=== PATIENT | female | born 1950 | race Two or more races ===

== ENCOUNTER 2019-06-18 15:21 | Inpatient (IN) | payer MEDICARE, OTHER ==
[~2019-06-18] VITALS: Ht 160 cm; Wt 61.4 kg
--- NOTE | 2019-06-18 15:21 | NUR ---
ED Nurse Note: patient brought in ED from [facility] by [facility] due to abdominal pain. per EMS, U/S was done at the SNF which shows gallstones and liver problems. patient is alert awake ambulatory with assistance. patient placed on a hospital gown, on a hall monitor.
--- NOTE | 2019-06-18 15:27 | Emergency Room Report ---
History of Present Illness General Chief Complaint: Abdominal Pain Source: Patient, Medical Record, EMS Present Illness HPI [age]-year-old female history of schizophrenia history of hypertension history of diabetes presents with hypoxia, abdominal pain times a few days no aggravating alleviating factors she endorses crampy abdominal pain no diarrhea no known fevers or chills patient does endorse a cough no production patient presents from a residential facility for evaluation for her abdominal pain as well as her hypoxia Allergies: Coded Allergies: PENICILLINS (Verified Allergy, Unknown, 06/18/19) COVID-19 Screening Contact w/high risk pt: No Recent Travel to affected area: No Experienced COVID-19 symptoms?: Yes COVID-19 symptoms experienced: Cough Patient History Past Medical History: see triage record Reviewed Nursing Documentation: PMH: Agreed; PSxH: Agreed Nursing Documentation-PMH Past Medical History: No History, Except For Hx Diabetes: Yes - DM TYPE 2 History Of Psychiatric Problem: Yes - MAJOR DEPRESSIVE DISORDER, SCHIZO, SI Review of Systems All Other Systems: negative except mentioned in HPI Physical Exam Vital Signs Date Time Temp Pulse Resp B/P (MAP) Pulse Ox O2 Delivery O2 Flow Rate FiO2 06/18/19 15:17 98.6 114 18 146/68 (94) 95 Room Air Sp02 EP Interpretation: reviewed, abnormal - Hypoxia General Appearance: no apparent distress, alert Head: normocephalic, atraumatic Eyes: bilateral eye PERRL, bilateral eye EOMI ENT: uvula midline, moist mucus membranes Neck: supple, thyroid normal, supple/symm/no masses Respiratory: lungs clear, no respiratory distress, no retraction, no accessory muscle use Cardiovascular #1: normal peripheral pulses, no edema, no gallop, no murmur, tachycardia Gastrointestinal: non tender, soft, no guarding, no rebound Musculoskeletal: normal inspection Neurologic: alert, responsive Psychiatric: mood/affect normal Skin: no rash, warm/dry Procedures Critical Care Time Critical Care Time Given the critical condition in which the patient arrived, the patient was immediately assessed by myself and the nurse, and cardiac monitoring initiated due to the potential for rapid decompensation of the patient's clinical condition. During the course of the patient's stay, I spent a considerable amount of time at the bedside performing serial re-evaluations of the patient's hemodynamic and clinical status because of the recognized potential threat to life or limb in this condition. I then had a chance to review not only all of the available current laboratory and radiographic studies obtained today, but I also reviewed old records available to me at the time. Additionally, any ancillary information available including mobile security specialist records were reviewed. Sequential vital signs were obtained. Critical Care time of 33 minutes was performed exclusive of billable procedures. Medical Decision Making Diagnostic Impression: Primary Impression: Hypoxia Additional Impressions: Abdominal pain Qualified Codes: R10.9 - Unspecified abdominal pain Pneumonia Qualified Codes: J18.9 - Pneumonia, unspecified organism Dehydration HCC (hepatocellular carcinoma) ER Course [age]-year-old female presents with shortness of breath, abdominal pain, differential diagnosis includes diverticulitis, appendicitis, gallstones pneumonia We will admit patient for new onset HCC as well as dehydration patient given 1 L fluids antibiotics were prophylactically started for possible infection Cardia resolved with fluid resuscitation, patient's hypoxia resolved without acute intervention patient admitted to Dr. Acuña Laboratory Tests Test 06/18/19 15:35 White Blood Count 11.0 K/UL (4.8-10.8) H Red Blood Count 2.95 M/UL (4.20-5.40) L Hemoglobin 9.9 G/DL (12.0-16.0) L Hematocrit 29.2 % (37.0-47.0) L Mean Corpuscular Volume 99 FL (80-99) Mean Corpuscular Hemoglobin 33.5 PG (27.0-31.0) H Mean Corpuscular Hemoglobin Concent 33.9 G/DL (32.0-36.0) Red Cell Distribution Width 16.8 % (11.6-14.8) H Platelet Count 134 K/UL (150-450) L Mean Platelet Volume 7.1 FL (6.5-10.1) Neutrophils (%) (Auto) 78.0 % (45.0-75.0) H Lymphocytes (%) (Auto) 8.8 % (20.0-45.0) L Monocytes (%) (Auto) 9.9 % (1.0-10.0) Eosinophils (%) (Auto) 1.8 % (0.0-3.0) Basophils (%) (Auto) 1.5 % (0.0-2.0) Prothrombin Time 12.0 SEC (9.30-11.50) H Prothrombin Time INR 1.1 (0.9-1.1) Activated Partial Thromboplast Time 27 SEC (23-33) Urine Color Brown Urine Appearance Clear Urine pH 6 (4.5-8.0) Urine Specific [place] 1.020 (1.005-1.035) Urine Protein 1+ (NEGATIVE) H Urine Glucose (UA) Negative (NEGATIVE) Urine Ketones 1+ (NEGATIVE) H Urine Blood Negative (NEGATIVE) Urine Nitrite Positive (NEGATIVE) H Urine Bilirubin Negative (NEGATIVE) Urine Urobilinogen 4 MG/DL (0.0-1.0) H Urine Leukocyte Esterase 1+ (NEGATIVE) H Urine RBC 2-4 /HPF (0 - 2) H Urine WBC 5-10 /HPF (0 - 2) H Urine Squamous Epithelial Cells Few /LPF (NONE/OCC) Urine Amorphous Sediment Few /LPF (NONE) H Urine Bacteria Few /HPF (NONE) Sodium Level 138 MMOL/L (136-145) Potassium Level 4.1 MMOL/L (3.5-5.1) Chloride Level 105 MMOL/L (98-107) Carbon Dioxide Level 25 MMOL/L (21-32) Anion Gap 8 mmol/L (5-15) Blood Urea Nitrogen 41 mg/dL (7-18) H Creatinine 0.9 MG/DL (0.55-1.30) Estimated Glomerular Filtration Rate > 60 mL/min (>60) Glucose Level 125 MG/DL (74-106) H Lactic Acid Level 1.90 mmol/L (0.4-2.0) Calcium Level 8.4 MG/DL (8.5-10.1) L Total Bilirubin 1.6 MG/DL (0.2-1.0) H Direct Bilirubin 0.7 MG/DL (0.0-0.3) H Aspartate Amino Transferase (AST) 47 U/L (15-37) H Alanine Aminotransferase (ALT) 18 U/L (12-78) Alkaline Phosphatase 139 U/L (46-116) H Troponin I 0.011 ng/mL (0.000-0.056) Pro-B-Type Natriuretic Peptide 106 pg/mL (0-125) Total Protein 7.3 G/DL (6.4-8.2) Albumin 2.7 G/DL (3.4-5.0) L Globulin 4.6 g/dL Albumin/Globulin Ratio 0.6 (1.0-2.7) L Lipase 168 U/L (73-393) EKG Diagnostic Results EKG Time: 15:36 EP Interpretation: Sinus tachycardia, rate 104, QTc 460, no acute ST elevations , normal axis Rhythm Strip Diag. Results Rhythm Strip Time: 15:44 EP Interpretation: yes Rate: 110 Rhythm: other - Sinus tachycardia Chest X-Ray Diagnostic Results Chest X-Ray Diagnostic Results : Chest X-Ray Ordered: Yes # of Views/Limited/Complete: 1 View Indication: Other - Cough EP Interpretation: Yes Interpretation: no consolidation, no effusion, no pneumothorax, no acute cardiopulmonary disease Impression: No acute disease Electronically Signed by: Rajendra Rouse MD CT/MRI/US Diagnostic Results CT/MRI/US Diagnostic Results : Impression Procedure: CT Chest Abdomen Pelvis w/Cont EXAM: CT Chest With Intravenous Contrast CLINICAL HISTORY: ABD PAIN TECHNIQUE: Axial computed tomography images of the chest with intravenous contrast. CTDI is 5.6 mGy and DLP is 154.6 mGy-cm. One or more of the following dose reduction techniques were used: automated exposure control, adjustment of the mA and/or kV according to patient size, use of iterative reconstruction technique. COMPARISON: No relevant prior studies available. FINDINGS: Atherosclerosis of the thoracic aorta. No dissection or other acute syndrome. No central pulmonary embolism. Trace pericardial and pleural effusions. Basilar atelectasis. Difficult to exclude coexisting infection. Multiple pulmonary nodules. Largest in the right upper lobe measures 1.4 cm. Metastatic disease is a possibility. Would also consider septic emboli. Clinical relation is advised. There is cardiophrenic lymphadenopathy. Largest node along the right heart margin measures 1.9 cm. No acute fracture. IMPRESSION: Trace pericardial and pleural effusions. Basilar atelectasis. Difficult to exclude coexisting infection. Pulmonary nodules, largest in the RUL. Consider metastatic disease or septic emboli. Cardiophrenic lymphadenopathy. EXAM: CT Abdomen and Pelvis With Intravenous Contrast CLINICAL HISTORY: ABD PAIN TECHNIQUE: Axial computed tomography images of the abdomen and pelvis with intravenous contrast. CTDI is 5.9 mGy and DLP is 338.8 mGy-cm. One or more of the following dose reduction techniques were used: automated exposure control, adjustment of the mA and/or kV according to patient size, use of iterative reconstruction technique. COMPARISON: No relevant prior studies available. FINDINGS: The liver is cirrhotic. There is evidence of portal hypertension including splenomegaly and gastric varices. There is a mass in the left lobe, primarily in the lateral segments, but also extending medially. This measures 7.7 x 5 x 4.8 cm in greatest transverse, anteroposterior, and craniocaudal dimensions respectively. This is hypodense/hypoenhancing compared to relatively normal adjacent parenchyma in the portal venous phase. This could reflect early washout of a hepatocellular carcinoma, particularly given cirrhosis. A large metastasis is also possible. Cholelithiasis. 2.2 cm densely calcified stone in the dependent gallbladder. No biliary ductal dilation. Both kidneys demonstrate multiple hypodense lesions, which are too small to characterize. No hydronephrosis. There is no bowel obstruction or perforation. The appendix is not well seen. Leftward pelvic calcification may reflect a subserosal uterine fibroid. No abdominal aortic aneurysm. No acute fracture. IMPRESSION: 7.7 cm left lobe hepatic mass is concerning for hepatocellular carcinoma, particularly given cirrhosis. A large metastasis is also possible. Consider multiphase hepatic protocol MRI. Right renal hypodensities that are too small to characterize. Cholelithiasis. Dictated By: Rajendra Arshad MD Electronically Signed By: Rajendra Arshad MD Signed Date/Time 06/18/19 [id number] CC: Rajendra Rouse MD Last Vital Signs Date Time Temp Pulse Resp B/P (MAP) Pulse Ox O2 Delivery O2 Flow Rate FiO2 06/18/19 15:17 98.6 114 18 146/68 (94) 95 Room Air Disposition: ADMITTED INPATIENT Condition: Serious Rajendra Rouse MD Jun 18, 2019 15:26
[2019-06-18] MEDS ORDERED: BENZTROPINE MESY1 MG ORAL (15:29)
[2019-06-18] MEDS ORDERED: HALOPERIDOL1 MG ORAL (15:29)
[2019-06-18] MEDS ORDERED: BISACODYL5 MG ORAL (15:29)
[2019-06-18] MEDS ORDERED: MOM30 ML ORAL (15:29)
[2019-06-18] MEDS ORDERED: SENNA8.6 M2 PO (15:29)
[2019-06-18] MEDS ORDERED: ZANTAC150 MG ORAL (15:29)
[2019-06-18] MEDS ORDERED: CELEXA20 MG ORAL (15:29)
[2019-06-18] MEDS ORDERED: ACETAMINOPHEN120 MG RECTAL (15:29)
[2019-06-18] MEDS ORDERED: Omnipaque-300 100ml vial INJ PRN (15:30)
[2019-06-18] MEDS ORDERED: Acetaminophen 500mg (ES) tab ORAL ONE (15:30)
--- NOTE | 2019-06-18 15:35 | NUR ---
ED Nurse Note: iv access established. blood, initial lactic, blood cultures, flu swab, covid19 swab collected; sent down to lab.
[2019-06-18 15:57] LABS: APPEARANCE,URINE CLEAR; BASOPHILS % (AUTO) 1.5 % (0.0-2.0); BILIRUBIN, URINE NEGATIVE (NEGATIVE); COLOR,URINE BROWN; EOSINOPHILS % (AUTO) 1.8 % (0.0-3.0); GLUCOSE, URINE (UA) NEGATIVE (NEGATIVE); HEMATOCRIT 29.2 % (37.0-47.0); HEMOGLOBIN 9.9 G/DL (12.0-16.0); KETONES,URINE 1+ (NEGATIVE); LEUKOCYTE ESTERASE ,URINE 1+ (NEGATIVE); LYMPHOCYTES % (AUTO) 8.8 % (20.0-45.0); MEAN CORPUSCULAR VOLUME 99 FL (80-99); MONOCYTES % (AUTO) 9.9 % (1.0-10.0); NITRITE,URINE POSITIVE (NEGATIVE); PH,URINE 6 (4.5-8.0); PLATELET COUNT 134 K/UL (150-450); PROTEIN,URINE 1+ (NEGATIVE); RED BLOOD COUNT 2.95 M/UL (4.20-5.40); RED CELL DISTRIBUTION WIDTH 16.8 % (11.6-14.8); UROBILINOGEN,URINE 4 MG/DL (0.0-1.0)
--- NOTE | 2019-06-18 15:59 | NUR ---
ED Nurse Note: cxr done at bedside.
[2019-06-18 16:04] VITALS: BP 115/62
[2019-06-18 16:05] LABS: INR 1.1 (0.9-1.1)
[2019-06-18 16:10] LABS: ANION GAP 8 mmol/L (5-15); BLOOD UREA NITROGEN 41 mg/dL (7-18); CALCIUM 8.4 MG/DL (8.5-10.1); CARBON DIOXIDE 25 MMOL/L (21-32); CHLORIDE 105 MMOL/L (98-107); CREATININE 0.9 MG/DL (0.55-1.30); POTASSIUM 4.1 MMOL/L (3.5-5.1); SODIUM 138 MMOL/L (136-145)
--- NOTE | 2019-06-18 16:14 | Diagnostic Imaging Report ---
Indication: Cough Technique: XRAY Chest 1v Comparison: None Findings: Lung volumes are low. There is a questionable opacity at the left base. No pleural effusion or pneumothorax. Heart size and mediastinal contours within normal limits for the lung was. Atherosclerotic calcifications noted in the aorta. Degenerative changes noted in the spine. No acute osseous abnormality. IMPRESSION: Limited exam with low lung volumes. Questionable opacity at the left lung base. Recommend further evaluation with PA and lateral views as clinically indicated.
[2019-06-18 16:23] LABS: ALANINE AMINOTRANSFERASE 18 U/L (12-78); ALBUMIN 2.7 G/DL (3.4-5.0); ALBUMIN/GLOBULIN RATIO 0.6 (1.0-2.7); ALKALINE PHOSPHATASE 139 U/L (46-116); ASPARTATE AMINO TRANSFERASE 47 U/L (15-37); BILIRUBIN,TOTAL 1.6 MG/DL (0.2-1.0)
[2019-06-18 16:36] LABS: BILIRUBIN,DIRECT 0.7 MG/DL (0.0-0.3)
--- NOTE | 2019-06-18 17:36 | NUR ---
ED Nurse Note: patient taken to CT scan
--- NOTE | 2019-06-18 18:16 | Diagnostic Imaging Report ---
EXAM: CT Chest With Intravenous Contrast CLINICAL HISTORY: ABD PAIN TECHNIQUE: Axial computed tomography images of the chest with intravenous contrast. CTDI is 5.6 mGy and DLP is 154.6 mGy-cm. One or more of the following dose reduction techniques were used: automated exposure control, adjustment of the mA and/or kV according to patient size, use of iterative reconstruction technique. COMPARISON: No relevant prior studies available. FINDINGS: Atherosclerosis of the thoracic aorta. No dissection or other acute syndrome. No central pulmonary embolism. Trace pericardial and pleural effusions. Basilar atelectasis. Difficult to exclude coexisting infection. Multiple pulmonary nodules. Largest in the right upper lobe measures 1.4 cm. Metastatic disease is a possibility. Would also consider septic emboli. Clinical relation is advised. There is cardiophrenic lymphadenopathy. Largest node along the right heart margin measures 1.9 cm. No acute fracture. IMPRESSION: Trace pericardial and pleural effusions. Basilar atelectasis. Difficult to exclude coexisting infection. Pulmonary nodules, largest in the RUL. Consider metastatic disease or septic emboli. Cardiophrenic lymphadenopathy. EXAM: CT Abdomen and Pelvis With Intravenous Contrast CLINICAL HISTORY: ABD PAIN TECHNIQUE: Axial computed tomography images of the abdomen and pelvis with intravenous contrast. CTDI is 5.9 mGy and DLP is 338.8 mGy-cm. One or more of the following dose reduction techniques were used: automated exposure control, adjustment of the mA and/or kV according to patient size, use of iterative reconstruction technique. COMPARISON: No relevant prior studies available. FINDINGS: The liver is cirrhotic. There is evidence of portal hypertension including splenomegaly and gastric varices. There is a mass in the left lobe, primarily in the lateral segments, but also extending medially. This measures 7.7 x 5 x 4.8 cm in greatest transverse, anteroposterior, and craniocaudal dimensions respectively. This is hypodense/hypoenhancing compared to relatively normal adjacent parenchyma in the portal venous phase. This could reflect early washout of a hepatocellular carcinoma, particularly given cirrhosis. A large metastasis is also possible. Cholelithiasis. 2.2 cm densely calcified stone in the dependent gallbladder. No biliary ductal dilation. Both kidneys demonstrate multiple hypodense lesions, which are too small to characterize. No hydronephrosis. There is no bowel obstruction or perforation. The appendix is not well seen. Leftward pelvic calcification may reflect a subserosal uterine fibroid. No abdominal aortic aneurysm. No acute fracture. IMPRESSION: 7.7 cm left lobe hepatic mass is concerning for hepatocellular carcinoma, particularly given cirrhosis. A large metastasis is also possible. Consider multiphase hepatic protocol MRI. Right renal hypodensities that are too small to characterize. Cholelithiasis.
--- NOTE | 2019-06-18 18:55 | NUR ---
NURSE NOTES: Received report from AROLDO Zuniga from ED. Will endorse to next shift.
--- NOTE | 2019-06-18 18:57 | NUR ---
ED Nurse Note: report given to Caren RN, endorsed all plan of care to Caren KENDRICK
[2019-06-18 19:10] VITALS: BP 127/64
--- NOTE | 2019-06-18 19:10 | NUR ---
HAND-OFF: Report given to Ronal KENDRICK, endorsed all plan of care to [place] RN
--- NOTE | 2019-06-18 19:10 | NUR ---
TRANSFER TO FLOOR: Patient transferred to [facility] via gurney accompanied by 1rn 1tech via alternate route with proper ppe equipment in stable condition as ordered, per dr. Acuña. Security and casting house worker notified of isolation transfer. Report given to Caren KENDRICK and endorsed that the patient is an isolation. Belongings sent with be
[2019-06-18 19:29] VITALS: BP 131/63
--- NOTE | 2019-06-18 19:40 | NUR ---
NURSE NOTES: Pt transferred to the unit via [place] [facility], belongings checked. Droplet precautions initiated. Skin intact. A/O x2-3. Pt able to answer questions but repeating same questions. SR on ekg monitor. On room air with no SOB with dry cough. Abd large and distended noted. Purewick applied. IV on L AC 18G. VS stable. Bed in the lowest position. Side rails up x3. Will continue to monitor.
--- NOTE | 2019-06-18 20:00 | NUR ---
NURSE NOTES: Admitting orders from received and will be carried out.
[2019-06-18] MEDS ORDERED: Guaifenesin/DM 10ml syrup ORAL PRN (20:15)
[2019-06-18] MEDS ORDERED: Acetaminophen 500mg (ES) tab ORAL PRN (20:15)
[2019-06-18] MEDS: LORazepam 1mg tab ORAL PRN (23:47)
[2019-06-19] VITALS: BP 123/65
--- NOTE | 2019-06-19 | NUR ---
NURSE NOTES: Pt seems agitated and depressive. After RN leaves the room, pt starts to yell and scream. notified, new order received and carried out.
[2019-06-19 04:00] VITALS: BP 116/64
[2019-06-19 05:10] LABS: HEMATOCRIT 26.2 % (37.0-47.0); HEMOGLOBIN 9.3 G/DL (12.0-16.0); MEAN CORPUSCULAR VOLUME 95 FL (80-99); PLATELET COUNT 97 K/UL (150-450); RED BLOOD COUNT 2.75 M/UL (4.20-5.40); RED CELL DISTRIBUTION WIDTH 16.3 % (11.6-14.8); WHITE BLOOD COUNT 7.5 K/UL (4.8-10.8)
[2019-06-19 05:41] LABS: ALANINE AMINOTRANSFERASE 13 U/L (12-78); ALBUMIN 2.2 G/DL (3.4-5.0); ALBUMIN/GLOBULIN RATIO 0.5 (1.0-2.7); ALKALINE PHOSPHATASE 120 U/L (46-116); ANION GAP 8 mmol/L (5-15); ASPARTATE AMINO TRANSFERASE 40 U/L (15-37); BILIRUBIN,TOTAL 1.4 MG/DL (0.2-1.0); BLOOD UREA NITROGEN 33 mg/dL (7-18); CALCIUM 7.8 MG/DL (8.5-10.1); CARBON DIOXIDE 24 MMOL/L (21-32); CHLORIDE 106 MMOL/L (98-107); CREATININE 0.7 MG/DL (0.55-1.30); POTASSIUM 4.2 MMOL/L (3.5-5.1); SODIUM 138 MMOL/L (136-145)
[2019-06-19 05:49] LABS: BILIRUBIN,DIRECT 0.6 MG/DL (0.0-0.3)
--- NOTE | 2019-06-19 07:23 | NUR ---
NURSE NOTES: Received report from AROLDO Coyne. Patient is resting in bed, in stable condition. No s/sx of SOB, breathing is even and unlabored, room air. Isolation contact and droplet for rule out for COVID-19. Denies any presence of pain or discomfort at this time. Bed is in lowest position, brakes engaged. Call light kept within easy reach. Will continue to monitor patient.
--- NOTE | 2019-06-19 07:26 | NUR ---
HAND-OFF: Report given to AROLDO Garcia. No acute distress noted at this time.
[2019-06-19 08:00] VITALS: BP 140/69
--- NOTE | 2019-06-19 09:26 | NUR ---
NURSE NOTES: Dr. Acuña at nurse station. ordered Margarita Kemp for ID consult, Dr. Langford for GI consult. Keep pt NPO wait for Dr. Langford to place GI orders. Accuchek ACHS no coverage while NPO. When pt placed on Diet per Dr. Langford begin pt on sensitive insulin sliding scale. D50W IVP PRN for hypoglycemia. Orders entered, noted, and carried out. Will continue to monitor patient. Charge nurse aware.
--- NOTE | 2019-06-19 09:30 | NUR ---
NURSE NOTES: Dr. Martines at nurse station. Made aware patient is on room air with SpO2 98%. MD aware of CT results, no new orders at this time. Made MD aware of patient's coughing, MD acknowledged and states will place codeine cough syrup himself. Noted.
--- NOTE | 2019-06-19 09:39 | NUR ---
NURSE NOTES: Dr. Langford at nurse station, ordered to discontinue NPO and place patient on diabetic 1800 diet. Orders entered, noted, and carried out. Will continue to monitor patient.
[2019-06-19] MEDS: LORazepam 1mg tab ORAL PRN ×2 (10:11→16:25)
[2019-06-19] MEDS: NovoLOG Insulin Flexpen SUBQ SCH ×3 (11:30→20:18)
[2019-06-19 12:00] VITALS: BP 118/64
[2019-06-19] MEDS ORDERED: Levofloxacin 750mg tab ORAL SCH (12:00)
--- NOTE | 2019-06-19 12:14 | Consultation ---
DATE OF CONSULTATION: 06/19/2019 PULMONARY CONSULTATION CONSULTING PHYSICIAN: Trip Martines M.D. HISTORY OF PRESENT ILLNESS: This is a 69-year-old female, who is a care home resident. She has a history of schizophrenia. She was brought to the hospital with hypoxia, abdominal pain, and significant cough. The patient denies shortness of breath. She is a very poor historian. The patient was seen and worked up and underwent imaging studies including chest x-ray and chest CT as well as CT of the abdomen. The significant findings are notable for multiple pulmonary nodules, the largest being in the right lower lobe. There are no infiltrates or ground-glass opacities noted. She was also found to have a large hepatocellular mass, suspicious for carcinoma. PAST MEDICAL HISTORY: Notable for schizophrenia, depression, diabetes mellitus. SOCIAL HISTORY: prison resident. ALLERGIES: To penicillin. HOME MEDICATIONS: Reviewed and reconciled in chart and include insulin sliding scale, Ativan, Remeron, Levaquin, Flagyl, and . PHYSICAL EXAMINATION: GENERAL: Reveals a 69-year-old female. VITAL SIGNS: Blood pressure 140/60, heart rate 104, respirations are 20, she is afebrile, and O2 98% on room air. HEENT: Unremarkable. LUNGS: Shows decreased breath sounds bilaterally with normal heart sounds. ABDOMEN: Soft. EXTREMITIES: There is no edema. NEUROLOGIC: Nonfocal. LABORATORY AND DIAGNOSTIC DATA: Lab testing shows white count 11,000, now 7.5, hemoglobin 9.3, platelet count is 97,000. Chemistry notable for total bilirubin of 1.4, AST 40, ALT 13, alkaline phosphatase 120. Coags are negative. Urinalysis shows few wbc. discussed above are consistent with multiple pulmonary nodules, the largest being in the right lower lobe. The patient has a hepatocellular mass noted. IMPRESSION: 1. Probable metastatic pulmonary disease. 2. Low suspicion for COVID-19. 3. Hepatocellular mass. 4. Schizophrenia. 5. Diabetes mellitus. DISCUSSION: Admit to the hospital. We will place in isolation given risk factors for COVID-19 being care home resident, cough, hypoxia. Discussed with Gastroenterology. Await results of laboratory testing. She would benefit from Hematology consultation. We will follow carefully. Trip Martines M.D. DR: PALOMO JOB#: [id number] CC:
--- NOTE | 2019-06-19 12:30 | NUR ---
NURSE NOTES: Patient refused lunch, however stated would just like to drink cranberry juice at this time. Patient drank 2 eight ounce cups of cranberry juice. No coughing noted when swallowing. Will continue to monitor patient.
[2019-06-19] MEDS: guaiFENesin w/Codeine 5ml Liq ud ORAL PRN (13:03)
--- NOTE | 2019-06-19 13:26 | Consultation ---
History of Present Illness General Date patient seen: Jun 19, 2019 Reason for Hospitalization: Abdominal Pain Present Illness HPI 69-year-old female history of schizophrenia history of hypertension history of diabetes presents with hypoxia, abdominal pain times a few days no aggravating alleviating factors she endorses crampy abdominal pain no diarrhea no known fevers or chills patient does endorse a cough no production [facility] for evaluation for her abdominal pain as well as her hypoxia. surgery called to evaluate. elevated lfts'. leukocytosis. imaging reviewed. Allergies: Coded Allergies: PENICILLINS (Verified Allergy, Unknown, 06/18/19) COVID-19 Screening Contact w/high risk pt: No Recent Travel to affected area: No Experienced COVID-19 symptoms?: Yes COVID-19 symptoms experienced: Cough Medication History Scheduled Benztropine Mesylate* (Benztropine Mesylate*), 1 MG ORAL HS, (Reported) Bisacodyl* (Dulcolax*), 10 AMP ORAL NEEDED, (Reported) Citalopram Hydrobromide* (Celexa*), 20 MG ORAL DAILY, (Reported) Haloperidol* (Haldol*), 5 MG ORAL HS, (Reported) Magnesium Hydroxide (Milk of Magnesia), 30 ML ORAL NEEDED, (Reported) Ranitidine Hcl* (Zantac*), 150 MG ORAL DAILY, (Reported) Scheduled PRN Acetaminophen* (Tylenol*), 500 MG RECTAL Q4H PRN for Mild Pain/Temp > 100.5, ( Reported) Miscellaneous Medications Sennosides (Senna), 8.6 MG PO, (Reported) Patient History Limited by: medical condition History Provided By: Medical Record, PMD Healthcare decision maker Resuscitation status Full Code Advanced Directive on File Past Medical/Surgical History Past Medical/Surgical History: (1) Dehydration (2) Hypoxia (3) Abdominal pain (4) Pneumonia (5) HCC (hepatocellular carcinoma) Review of Systems Review of Symptoms General ROS: no weight loss or fever Psychological ROS: no depression or mood changes, no memory loss Ophthalmic ROS: no visual changes or eye irritation ENT ROS: no nasal congestion, hearing loss, dizziness Allergy and Immunology ROS: no allergic symptoms or urticaria Hematological and Lymphatic ROS: no swollen glands, unusual bleeding or bruising Endocrine ROS: no polyuria, polydipsia, weight changes, temperature intolerance Respiratory ROS: no cough, shortness of breath, or wheezing Cardiovascular ROS: no chest pain or dyspnea on exertion Gastrointestinal ROS: denies abdominal pain, bright red blood in stool. Musculoskeletal ROS: no myalgias or arthralgias Neurological ROS: no TIA or stroke symptoms Dermatological ROS: no new or changing skin lesions, rashes or pruritis Physical Exam Physical Exam General appearance: alert, cooperative, no distress, appears stated age Head: Normocephalic, without obvious abnormality, atraumatic Eyes: conjunctivae/corneas clear. PERRL, EOM's intact. Fundi benign Throat: Lips, mucosa, and tongue normal. Teeth and gums normal Neck: supple, symmetrical, trachea midline, no adenopathy, thyroid: not enlarged, symmetric, no tenderness/mass/nodules, no carotid bruit and no JVD Lungs: clear to auscultation bilaterally Heart: regular rate and rhythm, S1, S2 normal, no murmur, click, rub or gallop Abdomen: soft, non-tender. Bowel sounds normal. No masses, no organomegaly Extremities: extremities normal, atraumatic, no cyanosis or edema Pulses: 2+ and symmetric Skin: Skin color, texture, turgor normal. No rashes or lesions Neurologic: Grossly normal Last 24 Hour Vital Signs Date Time Temp Pulse Resp B/P (MAP) Pulse Ox O2 Delivery O2 Flow Rate FiO2 06/19/19 12:00 98.1 115 20 118/64 (82) 99 06/19/19 11:34 118 06/19/19 08:00 Room Air 06/19/19 08:00 97.9 107 20 140/69 (92) 98 06/19/19 07:47 101 06/19/19 04:00 Room Air 06/19/19 04:00 100 06/19/19 04:00 96.7 100 20 116/64 (81) 100 06/19/19 00:00 108 06/19/19 00:00 Room Air 06/19/19 00:00 97.0 98 20 123/65 (84) 100 06/18/19 20:30 Room Air 06/18/19 20:00 90 06/18/19 19:29 96.8 100 16 131/63 (85) 100 06/18/19 19:10 98.9 97 18 127/64 98 Room Air 06/18/19 19:10 98.9 97 18 127/64 98 Room Air 06/18/19 18:54 98.6 06/18/19 16:04 98.6 100 18 115/62 96 Room Air 06/18/19 15:58 114 18 Room Air 06/18/19 15:17 98.6 114 18 146/68 (94) 95 Room Air Laboratory Tests Test 06/18/19 15:35 06/19/19 05:00 White Blood Count 11.0 K/UL (4.8-10.8) H 7.5 K/UL (4.8-10.8) Red Blood Count 2.95 M/UL (4.20-5.40) L 2.75 M/UL (4.20-5.40) L Hemoglobin 9.9 G/DL (12.0-16.0) L 9.3 G/DL (12.0-16.0) L Hematocrit 29.2 % (37.0-47.0) L 26.2 % (37.0-47.0) L Mean Corpuscular Volume 99 FL (80-99) 95 FL (80-99) Mean Corpuscular Hemoglobin 33.5 PG (27.0-31.0) H 34.0 PG (27.0-31.0) H Mean Corpuscular Hemoglobin Concent 33.9 G/DL (32.0-36.0) 35.6 G/DL (32.0-36.0) Red Cell Distribution Width 16.8 % (11.6-14.8) H 16.3 % (11.6-14.8) H Platelet Count 134 K/UL (150-450) L 97 K/UL (150-450) L Mean Platelet Volume 7.1 FL (6.5-10.1) 6.4 FL (6.5-10.1) L Neutrophils (%) (Auto) 78.0 % (45.0-75.0) H % (45.0-75.0) Lymphocytes (%) (Auto) 8.8 % (20.0-45.0) L % (20.0-45.0) Monocytes (%) (Auto) 9.9 % (1.0-10.0) % (1.0-10.0) Eosinophils (%) (Auto) 1.8 % (0.0-3.0) % (0.0-3.0) Basophils (%) (Auto) 1.5 % (0.0-2.0) % (0.0-2.0) Prothrombin Time 12.0 SEC (9.30-11.50) H Prothromb Time International Ratio 1.1 (0.9-1.1) Activated Partial Thromboplast Time 27 SEC (23-33) Urine Color Brown Urine Appearance Clear Urine pH 6 (4.5-8.0) Urine Specific [place] 1.020 (1.005-1.035) Urine Protein 1+ (NEGATIVE) H Urine Glucose (UA) Negative (NEGATIVE) Urine Ketones 1+ (NEGATIVE) H Urine Blood Negative (NEGATIVE) Urine Nitrite Positive (NEGATIVE) H Urine Bilirubin Negative (NEGATIVE) Urine Urobilinogen 4 MG/DL (0.0-1.0) H Urine Leukocyte Esterase 1+ (NEGATIVE) H Urine RBC 2-4 /HPF (0 - 2) H Urine WBC 5-10 /HPF (0 - 2) H Urine Squamous Epithelial Cells Few /LPF (NONE/OCC) Urine Amorphous Sediment Few /LPF (NONE) H Urine Bacteria Few /HPF (NONE) Sodium Level 138 MMOL/L (136-145) 138 MMOL/L (136-145) Potassium Level 4.1 MMOL/L (3.5-5.1) 4.2 MMOL/L (3.5-5.1) Chloride Level 105 MMOL/L (98-107) 106 MMOL/L (98-107) Carbon Dioxide Level 25 MMOL/L (21-32) 24 MMOL/L (21-32) Anion Gap 8 mmol/L (5-15) 8 mmol/L (5-15) Blood Urea Nitrogen 41 mg/dL (7-18) H 33 mg/dL (7-18) H Creatinine 0.9 MG/DL (0.55-1.30) 0.7 MG/DL (0.55-1.30) Estimat Glomerular Filtration Rate > 60 mL/min (>60) > 60 mL/min (>60) Glucose Level 125 MG/DL (74-106) H 88 MG/DL (74-106) Lactic Acid Level 1.90 mmol/L (0.4-2.0) Calcium Level 8.4 MG/DL (8.5-10.1) L 7.8 MG/DL (8.5-10.1) L Total Bilirubin 1.6 MG/DL (0.2-1.0) H 1.4 MG/DL (0.2-1.0) H Direct Bilirubin 0.7 MG/DL (0.0-0.3) H 0.6 MG/DL (0.0-0.3) H Aspartate Amino Transf (AST/SGOT) 47 U/L (15-37) H 40 U/L (15-37) H Alanine Aminotransferase (ALT/SGPT) 18 U/L (12-78) 13 U/L (12-78) Alkaline Phosphatase 139 U/L (46-116) H 120 U/L (46-116) H Troponin I 0.011 ng/mL (0.000-0.056) Pro-B-Type Natriuretic Peptide 106 pg/mL (0-125) Total Protein 7.3 G/DL (6.4-8.2) 6.4 G/DL (6.4-8.2) Albumin 2.7 G/DL (3.4-5.0) L 2.2 G/DL (3.4-5.0) L Globulin 4.6 g/dL 4.2 g/dL Albumin/Globulin Ratio 0.6 (1.0-2.7) L 0.5 (1.0-2.7) L Lipase 168 U/L (73-393) Differential Total Cells Counted 100 Neutrophils % (Manual) 74 % (45-75) Lymphocytes % (Manual) 14 % (20-45) L Monocytes % (Manual) 5 % (1-10) Eosinophils % (Manual) 7 % (0-3) H Basophils % (Manual) 0 % (0-2) Band Neutrophils 0 % (0-8) Platelet Estimate Decreased L Platelet Morphology Normal Hypochromasia 2+ Anisocytosis 1+ Spherocytes 1+ Microbiology Date/Time Source Procedure Growth Status 06/18/19 19:00 Rectum Received Height (Feet): 5 Height (Inches): 4.00 Weight (Pounds): 136 Medications Current Medications Medications (Trade) Dose Ordered Sig/[place] Route PRN Reason Start Time Stop Time Status Last Admin Dose Admin Acetaminophen (Tylenol) 500 mg Q6H PRN ORAL Mild Pain/Temp > 100.5 06/18/19 20:15 07/18/19 20:14 06/18/19 21:51 Dextrose (Dextrose 50%) 25 ml Q30M PRN IV Hypoglycemia 06/19/19 09:45 09/17/19 09:44 Dextrose (Dextrose 50%) 50 ml Q30M PRN IV Hypoglycemia 06/19/19 09:45 09/17/19 09:44 Guaifenesin/ Codeine Phosphate (Robitussin with codeine) 5 ml Q6H PRN ORAL For Cough 06/19/19 10:00 07/19/19 09:59 06/19/19 13:03 Insulin Aspart (NovoLOG) BEFORE MEALS AND HS SUBQ 06/19/19 11:30 09/17/19 11:29 Iohexol (OMNIPAQUE-300 100ml) 100 ml NOW PRN INJ Radiology Procedure 06/18/19 15:30 06/20/19 15:27 Levofloxacin (Levaquin) 750 mg QHS ORAL 06/19/19 21:00 06/26/19 20:59 Lorazepam (Ativan) 1 mg Q6H PRN ORAL For Anxiety 06/18/19 23:30 06/25/19 23:29 06/19/19 10:11 Mirtazapine (Remeron) 15 mg BEDTIME ORAL 06/18/19 23:45 09/16/19 23:44 06/18/19 23:47 Assessment/Plan Problem List: (1) Abdominal pain Assessment & Plan: [age]-year-old female multiple medical comorbidities presented with abdominal discomfort noted to have abnormal LFTs leukocytosis. CT reviewed liver cirrhotic and there is a mass. Possibly carcinoma likely. HCC. Abdominal exam without peritonitis no acute surgical intervention indicated recommended at this time supportive treatment. Will follow with recommendations thank you The liver is cirrhotic. There is evidence of portal hypertension including splenomegaly and gastric varices. There is a mass in the left lobe, primarily in the lateral segments, but also extending medially. This measures 7.7 x 5 x 4.8 cm in greatest transverse, anteroposterior, and craniocaudal dimensions respectively. This is hypodense/hypoenhancing compared to relatively normal adjacent parenchyma in the portal venous phase. This could reflect early washout of a hepatocellular carcinoma, particularly given cirrhosis. A large metastasis is also possible. Cholelithiasis. 2.2 cm densely calcified stone in the dependent gallbladder. No biliary ductal dilation. Both kidneys demonstrate multiple hypodense lesions, which are too small to characterize. No hydronephrosis. There is no bowel obstruction or perforation. The appendix is not well seen. Leftward pelvic calcification may reflect a subserosal uterine fibroid. No abdominal aortic aneurysm. No acute fracture. IMPRESSION: 7.7 cm left lobe hepatic mass is concerning for hepatocellular carcinoma, particularly given cirrhosis. A large metastasis is also possible. Consider multiphase hepatic protocol MRI. Right renal hypodensities that are too small to characterize. Cholelithiasis. ICD Codes: R10.9 - Unspecified abdominal pain SNOMED: [id number] Qualifiers: Qualified Codes: R10.9 - Unspecified abdominal pain Bay Kearns Jun 19, 2019 13:26
--- NOTE | 2019-06-19 14:01 | NUR ---
NURSE NOTES: Per Dr. Acuña instructed this nurse to contact Dr. Margarita Kemp for isolation clarifications as that patient is being ruled out for COVID-19. Currently patient is on droplet and contact precautions per protocol. Left message with Dr. Margarita Kemp, awaiting call back. Will continue to monitor patient.
--- NOTE | 2019-06-19 14:44 | NUR ---
NURSE NOTES: Dr. Margarita Kemp called back nurse station and spoke with this nurse regarding patient's isolation precautions d/t COVID-19 rule out and patient's coughing. This nurse read back chest x-ray results. Dr. Margarita Kemp acknowledged and informed this nurse to keep patient on droplet and contact isolation while being ruled out for COVID-19.
--- NOTE | 2019-06-19 14:57 | NUR ---
NURSE NOTES: Patient noted with abdominal ultra sound ordered by Dr. Kearns. Followed up with ultra sound department, this nurse spoke with Sandra, and was informed ultra sound is unable to perform procedure at this time as that patient is being ruled out for COVID-19. Per Sandra, once COVID-19 is ruled out than ultra sound can be done. Contacted and left message with Dr. Kearns, awaiting reply. Will continue to monitor patient.
[2019-06-19 15:26] VITALS: BP 134/67
--- NOTE | 2019-06-19 15:49 | NUR ---
NURSE NOTES: Dr. Kearns returned reply regarding ultra sound of abdomen unable to be done at this time due to patient being ruled out for COVID-19. Dr. Kearns acknowledged and gave no new orders at this time. Will continue to monitor patient.
--- NOTE | 2019-06-19 16:41 | NUR ---
NURSE NOTES: Per son, Anmol Lopez listed next of kin, okay to give medical information to patient's sister, Taylor Ovalle, . Per son, if medical consents needed, call him first; phone number for son Anmol Lopez on patient's facesheet. Noted.
--- NOTE | 2019-06-19 17:34 | General Progress Note ---
Assessment/Plan Assessment/Plan: Assessment - Cirrhosis, ? etiology - Large liver mass, suspect CA - r/o COVID Recommendations - Isolation - check COVID status - Check tumor markers - Cirrhsis w/u ([facility], [facility], [facility], [facility]) - No plans for liver biopsy until markers reviewed Subjective Allergies: Coded Allergies: PENICILLINS (Verified Allergy, Unknown, 06/18/19) Objective Last 24 Hour Vital Signs Date Time Temp Pulse Resp B/P (MAP) Pulse Ox O2 Delivery O2 Flow Rate FiO2 06/19/19 16:00 Room Air 06/19/19 15:48 110 06/19/19 15:26 97.7 117 20 134/67 (89) 98 06/19/19 15:16 118 06/19/19 12:00 98.1 115 20 118/64 (82) 99 06/19/19 12:00 Room Air 06/19/19 11:34 118 06/19/19 08:00 Room Air 06/19/19 08:00 97.9 107 20 140/69 (92) 98 06/19/19 07:47 101 06/19/19 04:00 Room Air 06/19/19 04:00 100 06/19/19 04:00 96.7 100 20 116/64 (81) 100 06/19/19 00:00 108 06/19/19 00:00 Room Air 06/19/19 00:00 97.0 98 20 123/65 (84) 100 06/18/19 20:30 Room Air 06/18/19 20:00 90 06/18/19 19:29 96.8 100 16 131/63 (85) 100 06/18/19 19:10 98.9 97 18 127/64 98 Room Air 06/18/19 19:10 98.9 97 18 127/64 98 Room Air 06/18/19 18:54 98.6 Laboratory Tests 06/19/19 05:00: White Blood Count 7.5, Red Blood Count 2.75L, Hemoglobin 9.3L, Hematocrit 26.2L , Mean Corpuscular Volume 95, Mean Corpuscular Hemoglobin 34.0H, Mean Corpuscular Hemoglobin Concent 35.6, Red Cell Distribution Width 16.3H, Platelet Count 97L, Mean Platelet Volume 6.4L, Neutrophils (%) (Auto) , Lymphocytes (%) (Auto) , Monocytes (%) (Auto) , Eosinophils (%) (Auto) , Basophils (%) (Auto) , Differential Total Cells Counted 100, Neutrophils % ( Manual) 74, Lymphocytes % (Manual) 14L, Monocytes % (Manual) 5, Eosinophils % ( Manual) 7H, Basophils % (Manual) 0, Band Neutrophils 0, Platelet Estimate DecreasedL, Platelet Morphology Normal, Hypochromasia 2+, Anisocytosis 1+, Spherocytes 1+, Sodium Level 138, Potassium Level 4.2, Chloride Level 106, Carbon Dioxide Level 24, Anion Gap 8, Blood Urea Nitrogen 33H, Creatinine 0.7, Estimat Glomerular Filtration Rate > 60, Glucose Level 88, Calcium Level 7.8L, Total Bilirubin 1.4H, Direct Bilirubin 0.6H, Aspartate Amino Transf (AST/SGOT) 40H, Alanine Aminotransferase (ALT/SGPT) 13, Alkaline Phosphatase 120H, Total Protein 6.4, Albumin 2.2L, Globulin 4.2, Albumin/Globulin Ratio 0.5L Height (Feet): 5 Height (Inches): 4.00 Weight (Pounds): 136 Zacarias Langford MD Jun 19, 2019 17:34
[2019-06-19] MEDS ORDERED: Hydromorphone 0.5mg/0.5ml inj IVP PRN (19:00)
--- NOTE | 2019-06-19 19:15 | NUR ---
NURSE NOTES: Pt c/o 12/31 left lower abdomen, pt noted without PRN servere pain medication at this time. Contacted and informed Dr. Acuña, pain medications up to Dr. Langford or Dr. Cole. Dr. Langford noted putting order for Hydromorphone for severe pain. Noted. Endorsed to night nurse.
--- NOTE | 2019-06-19 19:25 | NUR ---
NURSE NOTES: Received report from Jose Rn, pt. in bed awake, A/O x's 2- able to make needs known, no signs or symptoms of acute cardiac or respiratory distress noted, bed alarm on, side rails up x's3 and safety brakes engaged, call light within easy reach, pt. appears to be sating well on room air- no distress noted, bed bath given and linens changed, pure wick in place and set to suction, comfort measures provided, Left AC 18G-SL- IV intact and patent, safety measures continued, will continue with plan of care.
--- NOTE | 2019-06-19 19:29 | NUR ---
HAND-OFF: Report given to AROLDO Reid.
[2019-06-19 20:00] VITALS: BP 131/71
[2019-06-19] MEDS: Levofloxacin 750mg tab ORAL SCH (20:08)
--- NOTE | 2019-06-19 21:06 | NUR ---
NURSE NOTES: pt. appears to be sleeping well after pain medicine- Dilaudid appears to be effective. Will continue to monitor pt.
--- NOTE | 2019-06-19 22:30 | Consultation ---
DATE OF CONSULTATION: 06/19/2019 GASTROENTEROLOGY CONSULTATION CONSULTING PHYSICIAN: Zacarias Langford M.D. CHIEF COMPLAINT: I was asked to see this patient by Dr. Era Acuña for evaluation of cirrhosis and liver mass. HISTORY OF PRESENT ILLNESS: The patient is a 69-year-old woman from a detention who was brought in due to cough and flu-like symptoms. Her liver tests were elevated, which prompted a CT scan of the abdomen and pelvis showing a 7.7 cm mass in the left lateral liver lobe. There is also evidence of cirrhotic liver. The etiology of cirrhosis is unclear, but the patient does have splenomegaly and gastric varices. The patient mainly has cough symptoms, but she also has known CT scan findings of the chest showing multiple pulmonary nodules suggestive of metastatic disease. PAST MEDICAL HISTORY: History of schizophrenia, hypertension, diabetes, and cirrhosis. She also has history of cholelithiasis. FAMILY HISTORY: Noncontributory. SOCIAL HISTORY: The patient is from a detention. The patient's son looks after her affairs although he is not available at this time. REVIEW OF SYSTEMS: Otherwise negative. PHYSICAL EXAMINATION: GENERAL: A debilitated woman, seen in her room. She is coughing frequently. HEENT: Normocephalic and atraumatic. CHEST: Revealed coarse breath sounds. CARDIOVASCULAR: Revealed regular rate. ABDOMEN: Distended but soft and nontender. There are no masses. EXTREMITIES: Revealed no edema. LABORATORY DATA: Noted. CT scan was reviewed. ASSESSMENT: This patient presents with a 7.7 cm mass in the liver along with nodule in the lungs. These are all consistent with metastatic disease. Differential diagnosis would include primary hepatocellular carcinoma since the patient does have evidence of cirrhosis on the CT scan. The other possibilities include adenocarcinoma perhaps of the biliary tract, metastatic to the lung. GI tract was reviewed with consideration. At this point, the patient is also in a COVID virus isolation. I would check the tumor markers first Friday given great degree of inflammation as the the source of the findings. Based on results of tumor markers, further recommendations can be made. In the meantime, the patient can resume oral diet and can be followed supportively. RECOMMENDATIONS: Per above discussion and per orders in the chart. Thank you for asking me to participate in the care of this patient. Zacarias Langford M.D. DR: MUMTAZ JOB#: [id number] CC: NORA
--- NOTE | 2019-06-19 23:59 | History and Physical Report ---
DATE OF ADMISSION: 06/18/2019 HISTORY OF PRESENT ILLNESS: The patient is coming because the patient is complaining of abdominal pain, hypoxia, cough, congestion, finding of gallstone, hepatic mass, and possible lung nodules were found as well on imaging. She is admitted for those reasons and also to rule out if she has pneumonia as she is complaining of shortness of breath. The patient also has agitation and psych issues as well. The patient also on image findings found out that she has a 7.7 cm left lobe hepatic mass concerning for hepatic carcinoma, large metastasis is also possible. There is also a gallstone. The liver looks cirrhotic. X-ray shows trace pericardial and pleural effusion, bibasilar atelectasis, coexisting infection. Prominent large nodules were noted, largest in the right upper lobe. Admitted for the workup of possible metastatic cancer and also rule out pneumonia. The patient has also been admitted for dehydration as well as hypoxia. The patient is a relatively poor historian and cannot get reliable history from the patient, but does have shortness of breath and cough. PAST MEDICAL HISTORY: Depression, psychosis, GERD, constipation, rule out metastatic cancer. PAST SURGICAL HISTORY: Denies. ALLERGIES: Penicillin. MEDICATIONS: Cogentin, Bisacodyl, Celexa, Haldol, and Senokot. FAMILY HISTORY: Noncontributory. SOCIAL HISTORY: Denies history of smoking. Denies history of alcohol or illicit drugs. REVIEW OF SYSTEMS: HEENT: Denies headaches. RESPIRATORY: Reports shortness of breath and cough. CARDIOVASCULAR: Denies chest pain. GASTROINTESTINAL: Denies nausea or vomiting. Reports abdominal pain. EXTREMITIES: Denies pain in the lower extremities. CENTRAL NERVOUS SYSTEM: Denies changes in speech pattern; however, he is a poor historian. PHYSICAL EXAMINATION: VITAL SIGNS: Temperature 97.9, pulse is 107, blood pressure is 140/69. HEENT: PERRLA. NECK: Supple. No lymphadenopathy. CHEST: Clear to auscultation. CARDIOVASCULAR: Regular rate and rhythm. GASTROINTESTINAL: Epigastric tenderness. No rebound. Abdomen is soft. Liver is slightly enlarged. Positive bowel sounds. EXTREMITIES: No edema. Dorsalis pedis pulses present. NEUROLOGIC: Reflexes on both sides. Oriented to name. LABORATORY DATA: WBC of 11, hemoglobin 9.9, platelet 134,000. Sodium 138, potassium 4.1, BUN of 41, creatinine 0.9, and glucose of 125. AST of 47, ALT of 18, alkaline phosphatase of 139. Troponin 0.011. ASSESSMENT AND PLAN: Dehydration, hypoxia, respiratory insufficiency, hepatic mass, pulmonary nodule, rule out carcinoma with metastasis, rule out pneumonia, and also depression and psychosis. Basically, I have asked Dr. Zamudio, Dr. Holden, Dr. Cristobal Staples, Dr. Manuel Kemp, Dr. Bay Kearns, and Dr. Childers to see the patient for the above-mentioned abnormalities, symptoms, and diagnoses and to help with workup of rule-out metastatic cancer. Antibiotics per Dr. Manuel Kemp. Era Acuña M.D. DR: Selena JOB#: [id number] CC:
[2019-06-20] VITALS (7 sets, daily range): BP systolic 115–143; BP diastolic 62–75
--- NOTE | 2019-06-20 00:45 | NUR ---
NURSE NOTES: pt. appears to be restless in bed- trying to get out of bed- wanting to go home- talk therapy provided- but unsuccessful- administered Ativan as ordered- will continue to monitor pt. and with plan of care- pt. remains stable.
[2019-06-20] MEDS: guaiFENesin w/Codeine 5ml Liq ud ORAL PRN (00:54)
[2019-06-20] MEDS: LORazepam 1mg tab ORAL PRN (00:54)
--- NOTE | 2019-06-20 01:38 | NUR ---
NURSE NOTES: pt. appears to be in bed resting comfortably- no distress noted- chest noted riding up and down- will continue to monitor pt. and with plan of care.
--- NOTE | 2019-06-20 03:45 | Consultation ---
DATE OF CONSULTATION: 06/19/2019 CONSULTING PHYSICIAN: Per Holden M.D. HISTORY OF PRESENT ILLNESS: This is a 69-year-old female who is on [address] in isolation. She has a history of schizophrenia who has been brought into the hospital for hypoxia, abdominal pain, and cough. The patient is currently on isolation. The patient was agitated, non-manageable. She Ativan earlier and antipsychotics. The patient was agitated around 8 p.m. and the nurse was attempting to give pain medication. While I was waiting outside of the room, the patient was not calming down. PAST PSYCHIATRIC HISTORY: Dementia with behavior disturbance, schizophrenia, and anxiety disorder. PAST MEDICAL HISTORY: Diabetes mellitus. ALLERGIES: Penicillin. SUBSTANCE ABUSE HISTORY: No known history of illicit drug use or alcohol. MENTAL STATUS EXAMINATION: The patient is alert and oriented times self and place. Mood is agitated. Affect is flat. Thought process, there is a paucity of thought content. Thought content, no suicidal or homicidal ideation. Cognition is impaired. Insight and judgment are impaired. ASSESSMENT: [place] I Schizophrenia. Acute encephalopathy. [place] II Deferred. [place] III As above. [place] IV Low. PLAN: 1. We will treat the patient with Remeron and Ativan p.r.n. 2. Continue to follow and readjust the medications. Per Holden M.D. DR: TIO JOB#: [id number] CC: NORA
[2019-06-20] MEDS: NovoLOG Insulin Flexpen SUBQ SCH ×4 (05:45→20:02)
[2019-06-20 06:16] LABS: BASOPHILS % (AUTO) 0.7 % (0.0-2.0); EOSINOPHILS % (AUTO) 2.5 % (0.0-3.0); HEMATOCRIT 27.5 % (37.0-47.0); HEMOGLOBIN 9.7 G/DL (12.0-16.0); MEAN CORPUSCULAR VOLUME 95 FL (80-99); MONOCYTES % (AUTO) 11.6 % (1.0-10.0); NEUTROPHILS % (AUTO) 77.2 % (45.0-75.0); PLATELET COUNT 144 K/UL (150-450); RED BLOOD COUNT 2.89 M/UL (4.20-5.40); RED CELL DISTRIBUTION WIDTH 16.1 % (11.6-14.8); WHITE BLOOD COUNT 11.4 K/UL (4.8-10.8)
[2019-06-20 06:22] LABS: INR 1.3 (0.9-1.1)
[2019-06-20 06:28] LABS: % IRON SATURATION 26 % (15-50); IRON 56 ug/dL (50-175); TOTAL IRON BINDING CAPACITY 213 ug/dL (250-450)
[2019-06-20 06:41] LABS: ALANINE AMINOTRANSFERASE 14 U/L (12-78); ALBUMIN 2.5 G/DL (3.4-5.0); ALBUMIN/GLOBULIN RATIO 0.5 (1.0-2.7); ALKALINE PHOSPHATASE 131 U/L (46-116); AMYLASE 88 U/L (25-115); ANION GAP 8 mmol/L (5-15); ASPARTATE AMINO TRANSFERASE 34 U/L (15-37); BILIRUBIN,TOTAL 1.7 MG/DL (0.2-1.0); BLOOD UREA NITROGEN 38 mg/dL (7-18); CALCIUM 8.1 MG/DL (8.5-10.1); CARBON DIOXIDE 24 MMOL/L (21-32); CHLORIDE 104 MMOL/L (98-107); POTASSIUM 4.3 MMOL/L (3.5-5.1); SODIUM 136 MMOL/L (136-145)
[2019-06-20 06:44] LABS: BILIRUBIN,DIRECT 0.8 MG/DL (0.0-0.3)
--- NOTE | 2019-06-20 06:53 | NUR ---
HAND-OFF: Report given to Era Chapman, pt. remains stable and no signs of distress noted- aware to f/u on any abnormal am labs.
--- NOTE | 2019-06-20 07:00 | NUR ---
NURSE NOTES: received patient report from yarely rodriguez. patient is on bed awake. not in acute distress. VS taken and recorded. stable. droplet px maintained. will follow plan of care.
--- NOTE | 2019-06-20 11:55 | Consultation ---
History of Present Illness General Date patient seen: Jun 20, 2019 Chief Complaint: Present Illness Allergies: Coded Allergies: PENICILLINS (Verified Allergy, Unknown, 06/18/19) Medication History Scheduled Benztropine Mesylate* (Benztropine Mesylate*), 1 MG ORAL HS, (Reported) Bisacodyl* (Dulcolax*), 10 AMP ORAL NEEDED, (Reported) Citalopram Hydrobromide* (Celexa*), 20 MG ORAL DAILY, (Reported) Haloperidol* (Haldol*), 5 MG ORAL HS, (Reported) Magnesium Hydroxide (Milk of Magnesia), 30 ML ORAL NEEDED, (Reported) Ranitidine Hcl* (Zantac*), 150 MG ORAL DAILY, (Reported) Scheduled PRN Acetaminophen* (Tylenol*), 500 MG RECTAL Q4H PRN for Mild Pain/Temp > 100.5, ( Reported) Miscellaneous Medications Sennosides (Senna), 8.6 MG PO, (Reported) Patient History Healthcare decision maker Resuscitation status Full Code Advanced Directive on File Physical Exam Last 24 Hour Vital Signs Date Time Temp Pulse Resp B/P (MAP) Pulse Ox O2 Delivery O2 Flow Rate FiO2 06/20/19 10:36 97.9 111 23 123/75 (91) 100 06/20/19 08:00 124 06/20/19 08:00 Room Air 06/20/19 07:43 97.7 121 21 121/69 (86) 99 06/20/19 04:00 Room Air 06/20/19 04:00 97.8 112 18 115/63 (80) 99 06/20/19 03:36 123 06/20/19 00:00 Room Air 06/20/19 00:00 98.0 118 20 143/62 (89) 98 06/20/19 00:00 118 06/19/19 20:45 97.8 06/19/19 20:00 97.8 116 20 131/71 (91) 98 06/19/19 20:00 Room Air 06/19/19 19:24 115 06/19/19 16:00 Room Air 06/19/19 15:48 110 06/19/19 15:26 97.7 117 20 134/67 (89) 98 06/19/19 15:16 118 06/19/19 12:00 98.1 115 20 118/64 (82) 99 06/19/19 12:00 Room Air Intake and Output 06/19/19 06/20/19 19:00 07:00 Intake Total 500 ml Balance 500 ml Intake Oral 500 ml # Voids 2 2 Laboratory Tests Test 06/20/19 05:50 06/20/19 11:00 White Blood Count 11.4 K/UL (4.8-10.8) #H Red Blood Count 2.89 M/UL (4.20-5.40) L Hemoglobin 9.7 G/DL (12.0-16.0) L Hematocrit 27.5 % (37.0-47.0) L Mean Corpuscular Volume 95 FL (80-99) Mean Corpuscular Hemoglobin 33.6 PG (27.0-31.0) H Mean Corpuscular Hemoglobin Concent 35.3 G/DL (32.0-36.0) Red Cell Distribution Width 16.1 % (11.6-14.8) H Platelet Count 144 K/UL (150-450) L Mean Platelet Volume 5.7 FL (6.5-10.1) L Neutrophils (%) (Auto) 77.2 % (45.0-75.0) H Lymphocytes (%) (Auto) 8.0 % (20.0-45.0) L Monocytes (%) (Auto) 11.6 % (1.0-10.0) H Eosinophils (%) (Auto) 2.5 % (0.0-3.0) Basophils (%) (Auto) 0.7 % (0.0-2.0) Erythrocyte Sedimentation Rate 105 MM/HR (0-30) H Prothrombin Time 13.5 SEC (9.30-11.50) H Prothromb Time International Ratio 1.3 (0.9-1.1) H Activated Partial Thromboplast Time 30 SEC (23-33) Sodium Level 136 MMOL/L (136-145) Potassium Level 4.3 MMOL/L (3.5-5.1) Chloride Level 104 MMOL/L (98-107) Carbon Dioxide Level 24 MMOL/L (21-32) Anion Gap 8 mmol/L (5-15) Blood Urea Nitrogen 38 mg/dL (7-18) H Creatinine 1.0 MG/DL (0.55-1.30) Estimat Glomerular Filtration Rate 55.3 mL/min (>60) Glucose Level 142 MG/DL (74-106) H Lactic Acid Level 2.10 mmol/L (0.4-2.0) H Pending Calcium Level 8.1 MG/DL (8.5-10.1) L Iron Level 56 ug/dL (50-175) Total Iron Binding Capacity 213 ug/dL (250-450) L Percent Iron Saturation 26 % (15-50) Unsaturated Iron Binding 157 ug/dL (112-346) Total Bilirubin 1.7 MG/DL (0.2-1.0) H Direct Bilirubin 0.8 MG/DL (0.0-0.3) H Aspartate Amino Transf (AST/SGOT) 34 U/L (15-37) Alanine Aminotransferase (ALT/SGPT) 14 U/L (12-78) Alkaline Phosphatase 131 U/L (46-116) H C-Reactive Protein, Quantitative 15.5 mg/dL (0.00-0.90) H Total Protein 7.1 G/DL (6.4-8.2) Albumin 2.5 G/DL (3.4-5.0) L Globulin 4.6 g/dL Albumin/Globulin Ratio 0.5 (1.0-2.7) L Amylase Level 88 U/L (25-115) Lipase 172 U/L (73-393) Alpha Fetoprotein Pending Carcinoembryonic Antigen Pending CA 19-9 Antigen Pending Anti-Nuclear Antibody Screen Pending F-Actin IgG Antibody Pending Hepatitis B Surface Antigen Pending Hepatitis C Antibody Pending Height (Feet): 5 Height (Inches): 4.00 Weight (Pounds): 136 Medications Current Medications Medications (Trade) Dose Ordered Sig/Idalia Route PRN Reason Start Time Stop Time Status Last Admin Dose Admin Acetaminophen (Tylenol) 500 mg Q6H PRN ORAL Mild Pain/Temp > 100.5 06/18/19 20:15 07/18/19 20:14 06/18/19 21:51 Dextrose (Dextrose 50%) 25 ml Q30M PRN IV Hypoglycemia 06/19/19 09:45 09/17/19 09:44 Dextrose (Dextrose 50%) 50 ml Q30M PRN IV Hypoglycemia 06/19/19 09:45 09/17/19 09:44 Guaifenesin/ Codeine Phosphate (Robitussin with codeine) 5 ml Q6H PRN ORAL For Cough 06/19/19 10:00 07/19/19 09:59 06/20/19 00:54 Hydromorphone HCl (Dilaudid) 0.5 mg Q3H PRN IVP For Pain 06/19/19 19:00 06/26/19 18:59 06/19/19 20:15 Insulin Aspart (NovoLOG) BEFORE MEALS AND HS SUBQ 06/19/19 11:30 09/17/19 11:29 06/19/19 20:18 Iohexol (OMNIPAQUE-300 100ml) 100 ml NOW PRN INJ Radiology Procedure 06/18/19 15:30 06/20/19 15:27 Levofloxacin (Levaquin) 750 mg QHS ORAL 06/19/19 21:00 06/26/19 20:59 06/19/19 20:08 Lorazepam (Ativan) 1 mg Q6H PRN ORAL For Anxiety 06/18/19 23:30 06/25/19 23:29 06/20/19 00:54 Mirtazapine (Remeron) 15 mg BEDTIME ORAL 06/18/19 23:45 09/16/19 23:44 06/19/19 20:08 Assessment/Plan Assessment/Plan: (1) Intractable pain (2) Metastatic disease possible hepatocellular carcinoma seen dictated Joey Gilmore Jun 20, 2019 11:55
[2019-06-20] MEDS ORDERED: Naloxone 0.4mg/ml Inj IVP PRN (12:00)
--- NOTE | 2019-06-20 12:01 | Pulmonology Progress Note ---
Assessment/Plan Assessment/Plan IMPRESSION: 1. Probable metastatic pulmonary disease. 2. Low suspicion for COVID-19. 3. Hepatocellular mass. 4. Schizophrenia. 5. Diabetes mellitus. DISCUSSION: Continue isolation given risk factors for COVID-19 being snf resident, cough, hypoxia. Discussed with Gastroenterology. Await results of laboratory testing. I will follow carefully. Trip Martines M.D. Subjective Interval Events: None enw Constitutional: Reports: no symptoms HEENT: Repors: no symptoms Respiratory: Reports: no symptoms Cardiovascular: Reports: no symptoms Allergies: Coded Allergies: PENICILLINS (Verified Allergy, Unknown, 06/18/19) Objective Last 24 Hour Vital Signs Date Time Temp Pulse Resp B/P (MAP) Pulse Ox O2 Delivery O2 Flow Rate FiO2 06/20/19 10:36 97.9 111 23 123/75 (91) 100 06/20/19 08:00 124 06/20/19 08:00 Room Air 06/20/19 07:43 97.7 121 21 121/69 (86) 99 06/20/19 04:00 Room Air 06/20/19 04:00 97.8 112 18 115/63 (80) 99 06/20/19 03:36 123 06/20/19 00:00 Room Air 06/20/19 00:00 98.0 118 20 143/62 (89) 98 06/20/19 00:00 118 06/19/19 20:45 97.8 06/19/19 20:00 97.8 116 20 131/71 (91) 98 06/19/19 20:00 Room Air 06/19/19 19:24 115 06/19/19 16:00 Room Air 06/19/19 15:48 110 06/19/19 15:26 97.7 117 20 134/67 (89) 98 06/19/19 15:16 118 Intake and Output 06/19/19 06/20/19 19:00 07:00 Intake Total 500 ml Balance 500 ml Intake Oral 500 ml # Voids 2 2 General Appearance: no acute distress HEENT: normocephalic Respiratory/Chest: chest wall non-tender Cardiovascular: normal peripheral pulses Abdomen: normal bowel sounds Microbiology Date/Time Source Procedure Growth Status 06/18/19 15:35 Blood Blood Culture - Preliminary NO GROWTH AFTER 24 HOURS Resulted 06/18/19 15:25 Blood Blood Culture - Preliminary NO GROWTH AFTER 24 HOURS Resulted 06/18/19 19:00 Rectum Received Laboratory Tests 06/20/19 05:50: White Blood Count 11.4#H, Red Blood Count 2.89L, Hemoglobin 9.7L, Hematocrit 27.5L, Mean Corpuscular Volume 95, Mean Corpuscular Hemoglobin 33.6H, Mean Corpuscular Hemoglobin Concent 35.3, Red Cell Distribution Width 16.1H, Platelet Count 144L, Mean Platelet Volume 5.7L, Neutrophils (%) (Auto) 77.2H, Lymphocytes (%) (Auto) 8.0L, Monocytes (%) (Auto) 11.6H, Eosinophils (%) (Auto) 2.5, Basophils (%) (Auto) 0.7, Erythrocyte Sedimentation Rate 105H, Prothrombin Time 13.5H, Prothromb Time International Ratio 1.3H, Activated Partial Thromboplast Time 30, Sodium Level 136, Potassium Level 4.3, Chloride Level 104 , Carbon Dioxide Level 24, Anion Gap 8, Blood Urea Nitrogen 38H, Creatinine 1.0 , Estimat Glomerular Filtration Rate 55.3, Glucose Level 142H, Lactic Acid Level 2.10H, Calcium Level 8.1L, Iron Level 56, Total Iron Binding Capacity 213L , Percent Iron Saturation 26, Unsaturated Iron Binding 157, Total Bilirubin 1.7H , Direct Bilirubin 0.8H, Aspartate Amino Transf (AST/SGOT) 34, Alanine Aminotransferase (ALT/SGPT) 14, Alkaline Phosphatase 131H, C-Reactive Protein, Quantitative 15.5H, Total Protein 7.1, Albumin 2.5L, Globulin 4.6, Albumin/ Globulin Ratio 0.5L, Amylase Level 88, Lipase 172, Alpha Fetoprotein [Pending], Carcinoembryonic Antigen [Pending], CA 19-9 Antigen [Pending], Anti-Nuclear Antibody Screen [Pending], F-Actin IgG Antibody [Pending], Hepatitis B Surface Antigen [Pending], Hepatitis C Antibody [Pending] 06/20/19 11:00: Lactic Acid Level [Pending] Current Medications Medications (Trade) Dose Ordered Sig/Idalia Route PRN Reason Start Time Stop Time Status Last Admin Dose Admin Acetaminophen (Tylenol) 500 mg Q6H PRN ORAL Mild Pain/Temp > 100.5 06/18/19 20:15 07/18/19 20:14 06/18/19 21:51 Dextrose (Dextrose 50%) 25 ml Q30M PRN IV Hypoglycemia 06/19/19 09:45 09/17/19 09:44 Dextrose (Dextrose 50%) 50 ml Q30M PRN IV Hypoglycemia 06/19/19 09:45 09/17/19 09:44 Guaifenesin/ Codeine Phosphate (Robitussin with codeine) 5 ml Q6H PRN ORAL For Cough 06/19/19 10:00 07/19/19 09:59 06/20/19 00:54 Hydromorphone HCl (Dilaudid) 0.25 mg Q3H PRN IVP severe pain 06/20/19 13:00 06/26/19 18:59 Insulin Aspart (NovoLOG) BEFORE MEALS AND HS SUBQ 06/19/19 11:30 09/17/19 11:29 06/19/19 20:18 Iohexol (OMNIPAQUE-300 100ml) 100 ml NOW PRN INJ Radiology Procedure 06/18/19 15:30 06/20/19 15:27 Levofloxacin (Levaquin) 750 mg QHS ORAL 06/19/19 21:00 06/26/19 20:59 06/19/19 20:08 Lorazepam (Ativan) 1 mg Q6H PRN ORAL For Anxiety 06/18/19 23:30 06/25/19 23:29 06/20/19 00:54 Mirtazapine (Remeron) 15 mg BEDTIME ORAL 06/18/19 23:45 09/16/19 23:44 06/19/19 20:08 Naloxone HCl (Narcan) 0.2 mg Q2M PRN IVP respiratory depression 06/20/19 12:00 09/18/19 11:59 Trip Martines MD Jun 20, 2019 12:01
--- NOTE | 2019-06-20 14:43 | General Progress Note ---
Assessment/Plan Assessment/Plan: Assessment - Cirrhosis, ? etiology - Large liver mass, suspect CA - poor Px - lung nodules - abd distention, likely ascites - r/o COVID Recommendations - Isolation - await COVID status - Check tumor markers - pending - Cirrhsis w/u ([facility], [facility], [facility], [facility]) - No plans for liver biopsy or paracentesis until markers reviewed Subjective Allergies: Coded Allergies: PENICILLINS (Verified Allergy, Unknown, 06/18/19) Subjective Above noted d/w RN no events overnight had some pain yesterday - written for dilaudid PRN more comfortable today Objective Last 24 Hour Vital Signs Date Time Temp Pulse Resp B/P (MAP) Pulse Ox O2 Delivery O2 Flow Rate FiO2 06/20/19 12:00 Room Air 06/20/19 12:00 97.9 111 23 123/75 (91) 100 06/20/19 11:35 114 06/20/19 08:00 124 06/20/19 08:00 Room Air 06/20/19 07:43 97.7 121 21 121/69 (86) 99 06/20/19 04:00 Room Air 06/20/19 04:00 97.8 112 18 115/63 (80) 99 06/20/19 03:36 123 06/20/19 00:00 Room Air 06/20/19 00:00 98.0 118 20 143/62 (89) 98 06/20/19 00:00 118 06/19/19 20:45 97.8 06/19/19 20:00 97.8 116 20 131/71 (91) 98 06/19/19 20:00 Room Air 06/19/19 19:24 115 06/19/19 16:00 Room Air 06/19/19 15:48 110 06/19/19 15:26 97.7 117 20 134/67 (89) 98 06/19/19 15:16 118 Intake and Output 06/19/19 06/20/19 19:00 07:00 Intake Total 500 ml Balance 500 ml Intake Oral 500 ml # Voids 2 2 Laboratory Tests 06/20/19 05:50: White Blood Count 11.4#H, Red Blood Count 2.89L, Hemoglobin 9.7L, Hematocrit 27.5L, Mean Corpuscular Volume 95, Mean Corpuscular Hemoglobin 33.6H, Mean Corpuscular Hemoglobin Concent 35.3, Red Cell Distribution Width 16.1H, Platelet Count 144L, Mean Platelet Volume 5.7L, Neutrophils (%) (Auto) 77.2H, Lymphocytes (%) (Auto) 8.0L, Monocytes (%) (Auto) 11.6H, Eosinophils (%) (Auto) 2.5, Basophils (%) (Auto) 0.7, Erythrocyte Sedimentation Rate 105H, Prothrombin Time 13.5H, Prothromb Time International Ratio 1.3H, Activated Partial Thromboplast Time 30, Sodium Level 136, Potassium Level 4.3, Chloride Level 104 , Carbon Dioxide Level 24, Anion Gap 8, Blood Urea Nitrogen 38H, Creatinine 1.0 , Estimat Glomerular Filtration Rate 55.3, Glucose Level 142H, Lactic Acid Level 2.10H, Calcium Level 8.1L, Iron Level 56, Total Iron Binding Capacity 213L , Percent Iron Saturation 26, Unsaturated Iron Binding 157, Total Bilirubin 1.7H , Direct Bilirubin 0.8H, Aspartate Amino Transf (AST/SGOT) 34, Alanine Aminotransferase (ALT/SGPT) 14, Alkaline Phosphatase 131H, C-Reactive Protein, Quantitative 15.5H, Total Protein 7.1, Albumin 2.5L, Globulin 4.6, Albumin/ Globulin Ratio 0.5L, Amylase Level 88, Lipase 172, Alpha Fetoprotein [Pending], Carcinoembryonic Antigen [Pending], CA 19-9 Antigen [Pending], Anti-Nuclear Antibody Screen [Pending], F-Actin IgG Antibody [Pending], Hepatitis B Surface Antigen [Pending], Hepatitis C Antibody [Pending] 06/20/19 11:00: Lactic Acid Level 2.00 Height (Feet): 5 Height (Inches): 4.00 Weight (Pounds): 136 Objective WDWN woman resting comfortably NCAT abd distended, soft minimally TTP no edema Zacarias Langford MD Jun 20, 2019 14:43
--- NOTE | 2019-06-20 17:08 | Surgery Progress Note ---
Surgery Progress Note Subjective Additional Comments Patient seen examined bedside. Pending call with results. No nausea vomiting fever chills. Abdomen remains distended. CT reviewed and discussed case with GI. Await tumor markers. Objective Last 24 Hour Vital Signs Date Time Temp Pulse Resp B/P (MAP) Pulse Ox O2 Delivery O2 Flow Rate FiO2 06/20/19 16:00 97.9 114 22 127/75 (92) 100 06/20/19 16:00 Room Air 06/20/19 15:20 114 06/20/19 12:00 Room Air 06/20/19 12:00 97.9 111 23 123/75 (91) 100 06/20/19 11:35 114 06/20/19 08:00 124 06/20/19 08:00 Room Air 06/20/19 07:43 97.7 121 21 121/69 (86) 99 06/20/19 04:00 Room Air 06/20/19 04:00 97.8 112 18 115/63 (80) 99 06/20/19 03:36 123 06/20/19 00:00 Room Air 06/20/19 00:00 98.0 118 20 143/62 (89) 98 06/20/19 00:00 118 06/19/19 20:45 97.8 06/19/19 20:00 97.8 116 20 131/71 (91) 98 06/19/19 20:00 Room Air 06/19/19 19:24 115 I&O Intake and Output 06/19/19 06/20/19 19:00 07:00 Intake Total 500 ml Balance 500 ml Intake Oral 500 ml # Voids 2 2 Cardiovascular: RSR Respiratory: clear Abdomen: distended, tenderness, present bowel sounds Extremities: no tenderness, no cyanosis Laboratory Tests Test 06/20/19 05:50 06/20/19 11:00 White Blood Count 11.4 K/UL (4.8-10.8) #H Red Blood Count 2.89 M/UL (4.20-5.40) L Hemoglobin 9.7 G/DL (12.0-16.0) L Hematocrit 27.5 % (37.0-47.0) L Mean Corpuscular Volume 95 FL (80-99) Mean Corpuscular Hemoglobin 33.6 PG (27.0-31.0) H Mean Corpuscular Hemoglobin Concent 35.3 G/DL (32.0-36.0) Red Cell Distribution Width 16.1 % (11.6-14.8) H Platelet Count 144 K/UL (150-450) L Mean Platelet Volume 5.7 FL (6.5-10.1) L Neutrophils (%) (Auto) 77.2 % (45.0-75.0) H Lymphocytes (%) (Auto) 8.0 % (20.0-45.0) L Monocytes (%) (Auto) 11.6 % (1.0-10.0) H Eosinophils (%) (Auto) 2.5 % (0.0-3.0) Basophils (%) (Auto) 0.7 % (0.0-2.0) Erythrocyte Sedimentation Rate 105 MM/HR (0-30) H Prothrombin Time 13.5 SEC (9.30-11.50) H Prothromb Time International Ratio 1.3 (0.9-1.1) H Activated Partial Thromboplast Time 30 SEC (23-33) Sodium Level 136 MMOL/L (136-145) Potassium Level 4.3 MMOL/L (3.5-5.1) Chloride Level 104 MMOL/L (98-107) Carbon Dioxide Level 24 MMOL/L (21-32) Anion Gap 8 mmol/L (5-15) Blood Urea Nitrogen 38 mg/dL (7-18) H Creatinine 1.0 MG/DL (0.55-1.30) Estimat Glomerular Filtration Rate 55.3 mL/min (>60) Glucose Level 142 MG/DL (74-106) H Lactic Acid Level 2.10 mmol/L (0.4-2.0) H 2.00 mmol/L (0.66-2.22) Calcium Level 8.1 MG/DL (8.5-10.1) L Iron Level 56 ug/dL (50-175) Total Iron Binding Capacity 213 ug/dL (250-450) L Percent Iron Saturation 26 % (15-50) Unsaturated Iron Binding 157 ug/dL (112-346) Total Bilirubin 1.7 MG/DL (0.2-1.0) H Direct Bilirubin 0.8 MG/DL (0.0-0.3) H Aspartate Amino Transf (AST/SGOT) 34 U/L (15-37) Alanine Aminotransferase (ALT/SGPT) 14 U/L (12-78) Alkaline Phosphatase 131 U/L (46-116) H C-Reactive Protein, Quantitative 15.5 mg/dL (0.00-0.90) H Total Protein 7.1 G/DL (6.4-8.2) Albumin 2.5 G/DL (3.4-5.0) L Globulin 4.6 g/dL Albumin/Globulin Ratio 0.5 (1.0-2.7) L Amylase Level 88 U/L (25-115) Lipase 172 U/L (73-393) Alpha Fetoprotein Pending Carcinoembryonic Antigen Pending CA 19-9 Antigen Pending Anti-Nuclear Antibody Screen Pending F-Actin IgG Antibody Pending Hepatitis B Surface Antigen Pending Hepatitis C Antibody Pending Plan Problems: (1) Abdominal pain Assessment & Plan: [age]-year-old female multiple medical comorbidities presented with abdominal discomfort noted to have abnormal LFTs leukocytosis. CT reviewed liver cirrhotic and there is a mass. Possibly carcinoma likely. HCC. Abdominal exam without peritonitis no acute surgical intervention indicated recommended at this time supportive treatment. Will follow with recommendations thank you Await tumor markers prior to paracentesis considerations Consider comfort care/hospice Will follow with recommendations Covid results Thank you The liver is cirrhotic. There is evidence of portal hypertension including splenomegaly and gastric varices. There is a mass in the left lobe, primarily in the lateral segments, but also extending medially. This measures 7.7 x 5 x 4.8 cm in greatest transverse, anteroposterior, and craniocaudal dimensions respectively. This is hypodense/hypoenhancing compared to relatively normal adjacent parenchyma in the portal venous phase. This could reflect early washout of a hepatocellular carcinoma, particularly given cirrhosis. A large metastasis is also possible. Cholelithiasis. 2.2 cm densely calcified stone in the dependent gallbladder. No biliary ductal dilation. Both kidneys demonstrate multiple hypodense lesions, which are too small to characterize. No hydronephrosis. There is no bowel obstruction or perforation. The appendix is not well seen. Leftward pelvic calcification may reflect a subserosal uterine fibroid. No abdominal aortic aneurysm. No acute fracture. IMPRESSION: 7.7 cm left lobe hepatic mass is concerning for hepatocellular carcinoma, particularly given cirrhosis. A large metastasis is also possible. Consider multiphase hepatic protocol MRI. Right renal hypodensities that are too small to characterize. Cholelithiasis. Bay Kearns Jun 20, 2019 17:08
--- NOTE | 2019-06-20 19:00 | Consultation ---
DATE OF CONSULTATION: 06/20/2019 INFECTIOUS DISEASES CONSULTATION PRIMARY ATTENDING PHYSICIAN: Era Acuña M.D. REASON FOR CONSULTATION: Pneumonia, rule out COVID-19. HISTORY OF PRESENT ILLNESS: This is a 69-year-old female admitted on May from a nursing facility with abdominal pain and distention. She has also hypoxemia, cough, and congestion. PAST MEDICAL HISTORY: Significant for schizophrenia, hypertension, diabetes mellitus type 2, constipation, cirrhosis, portal hypertension, and anemia. ALLERGIES: Allergic to penicillin. MEDICATIONS: Getting hydromorphone, Noroxin, Levaquin, insulin, Robitussin with codeine, Remeron, lorazepam, and Tylenol. SOCIAL HISTORY: group home resident, single. No other history obtainable by the patient. PHYSICAL EXAMINATION: VITAL SIGNS: Temperature 97.9 degrees, pulse is 111, no fever since admission, and blood pressure 123/75. GENERAL APPEARANCE: No acute distress. HEAD AND NECK: She has hair loss. HEART: Tachycardic. LUNGS: Clear. ABDOMEN: Distended, likely with ascites. EXTREMITIES: She has no edema. NEUROLOGIC: She is sedated. LABORATORY AND DIAGNOSTIC DATA: WBC 11.4, hemoglobin 9.7, hematocrit 27.5, and platelets is 144,000. Sodium 136, potassium 4.3, chloride 104, bicarbonate 24, BUN 38, and creatinine 1. Lactic acid was 2.1 at the time of admission. Bilirubin is 1.7 and alkaline phosphatase 131. AST and ALT are within normal limits. Chest x-ray showed questionable opacity in left lung. No low lung volumes. CT scan of the chest, abdomen, and pelvis was done that showed cirrhotic liver, portal hypertension, left lobe liver mass 7.7 x 5 x 4.8 centimeter, suspecting of hepatocellular carcinoma, cholelithiasis, pulmonary nodules, largest in right upper lobe consistent with metastatic disease or septic emboli. IMPRESSION: Hypoxemia and abnormal CT scan of the chest, more likely metastatic disease. She has cirrhosis of liver with pulmonary hypertension, diabetes mellitus, hypertension, cholelithiasis, anemia, and suspected liver lobe neoplasm. RECOMMENDATION: Continue Levaquin. We will follow COVID-19 test. Prognosis is poor because of extensive liver disease and metastatic cancer. At the end of my exam, I thank Dr. Acuña for involving me in the care of this patient. Manuel Kemp M.D. DR: Brayan JOB#: [id number] CC:
--- NOTE | 2019-06-20 19:13 | NUR ---
NURSE NOTES: Received report from Era Chapman, pt. in bed awake, A/O x's 2- able to make needs known, no signs or symptoms of acute cardiac or respiratory distress noted, bed alarm on, side rails up x's3 and safety brakes engaged, call light within easy reach, pt. appears to be sating well on room air- no distress noted, pure wick in place and set to suction, comfort measures provided, Left AC 18G-SL- IV intact and patent, HOB elevated, safety measures continued, will continue with plan of care.
--- NOTE | 2019-06-20 19:15 | NUR ---
HAND-OFF: Report given to yarely rodriguez.
[2019-06-20] MEDS: Levofloxacin 750mg tab ORAL SCH (20:08)
--- NOTE | 2019-06-20 20:18 | Consultation ---
History of Present Illness General Chief Complaint: Abdominal Pain Present Illness Allergies: Coded Allergies: PENICILLINS (Verified Allergy, Unknown, 06/18/19) Medication History Scheduled Benztropine Mesylate* (Benztropine Mesylate*), 1 MG ORAL HS, (Reported) Bisacodyl* (Dulcolax*), 10 AMP ORAL NEEDED, (Reported) Citalopram Hydrobromide* (Celexa*), 20 MG ORAL DAILY, (Reported) Haloperidol* (Haldol*), 5 MG ORAL HS, (Reported) Magnesium Hydroxide (Milk of Magnesia), 30 ML ORAL NEEDED, (Reported) Ranitidine Hcl* (Zantac*), 150 MG ORAL DAILY, (Reported) Scheduled PRN Acetaminophen* (Tylenol*), 500 MG RECTAL Q4H PRN for Mild Pain/Temp > 100.5, ( Reported) Miscellaneous Medications Sennosides (Senna), 8.6 MG PO, (Reported) Patient History Healthcare decision maker Resuscitation status Full Code Advanced Directive on File Physical Exam Last 24 Hour Vital Signs Date Time Temp Pulse Resp B/P (MAP) Pulse Ox O2 Delivery O2 Flow Rate FiO2 06/20/19 20:00 97.9 112 20 125/71 (89) 100 06/20/19 16:00 97.9 114 22 127/75 (92) 100 06/20/19 16:00 Room Air 06/20/19 15:20 114 06/20/19 12:00 Room Air 06/20/19 12:00 97.9 111 23 123/75 (91) 100 06/20/19 11:35 114 06/20/19 08:00 124 06/20/19 08:00 Room Air 06/20/19 07:43 97.7 121 21 121/69 (86) 99 06/20/19 04:00 Room Air 06/20/19 04:00 97.8 112 18 115/63 (80) 99 06/20/19 03:36 123 06/20/19 00:00 Room Air 06/20/19 00:00 98.0 118 20 143/62 (89) 98 06/20/19 00:00 118 06/19/19 20:45 97.8 Intake and Output 06/19/19 06/20/19 19:00 07:00 Intake Total 500 ml Balance 500 ml Intake Oral 500 ml # Voids 2 2 Laboratory Tests Test 06/20/19 05:50 06/20/19 11:00 White Blood Count 11.4 K/UL (4.8-10.8) #H Red Blood Count 2.89 M/UL (4.20-5.40) L Hemoglobin 9.7 G/DL (12.0-16.0) L Hematocrit 27.5 % (37.0-47.0) L Mean Corpuscular Volume 95 FL (80-99) Mean Corpuscular Hemoglobin 33.6 PG (27.0-31.0) H Mean Corpuscular Hemoglobin Concent 35.3 G/DL (32.0-36.0) Red Cell Distribution Width 16.1 % (11.6-14.8) H Platelet Count 144 K/UL (150-450) L Mean Platelet Volume 5.7 FL (6.5-10.1) L Neutrophils (%) (Auto) 77.2 % (45.0-75.0) H Lymphocytes (%) (Auto) 8.0 % (20.0-45.0) L Monocytes (%) (Auto) 11.6 % (1.0-10.0) H Eosinophils (%) (Auto) 2.5 % (0.0-3.0) Basophils (%) (Auto) 0.7 % (0.0-2.0) Erythrocyte Sedimentation Rate 105 MM/HR (0-30) H Prothrombin Time 13.5 SEC (9.30-11.50) H Prothromb Time International Ratio 1.3 (0.9-1.1) H Activated Partial Thromboplast Time 30 SEC (23-33) Sodium Level 136 MMOL/L (136-145) Potassium Level 4.3 MMOL/L (3.5-5.1) Chloride Level 104 MMOL/L (98-107) Carbon Dioxide Level 24 MMOL/L (21-32) Anion Gap 8 mmol/L (5-15) Blood Urea Nitrogen 38 mg/dL (7-18) H Creatinine 1.0 MG/DL (0.55-1.30) Estimat Glomerular Filtration Rate 55.3 mL/min (>60) Glucose Level 142 MG/DL (74-106) H Lactic Acid Level 2.10 mmol/L (0.4-2.0) H 2.00 mmol/L (0.66-2.22) Calcium Level 8.1 MG/DL (8.5-10.1) L Iron Level 56 ug/dL (50-175) Total Iron Binding Capacity 213 ug/dL (250-450) L Percent Iron Saturation 26 % (15-50) Unsaturated Iron Binding 157 ug/dL (112-346) Total Bilirubin 1.7 MG/DL (0.2-1.0) H Direct Bilirubin 0.8 MG/DL (0.0-0.3) H Aspartate Amino Transf (AST/SGOT) 34 U/L (15-37) Alanine Aminotransferase (ALT/SGPT) 14 U/L (12-78) Alkaline Phosphatase 131 U/L (46-116) H C-Reactive Protein, Quantitative 15.5 mg/dL (0.00-0.90) H Total Protein 7.1 G/DL (6.4-8.2) Albumin 2.5 G/DL (3.4-5.0) L Globulin 4.6 g/dL Albumin/Globulin Ratio 0.5 (1.0-2.7) L Amylase Level 88 U/L (25-115) Lipase 172 U/L (73-393) Alpha Fetoprotein Pending Carcinoembryonic Antigen Pending CA 19-9 Antigen Pending Anti-Nuclear Antibody Screen Pending F-Actin IgG Antibody Pending Hepatitis B Surface Antigen Pending Hepatitis C Antibody Pending Height (Feet): 5 Height (Inches): 4.00 Weight (Pounds): 136 Medications Current Medications Medications (Trade) Dose Ordered Sig/[place]alia Route PRN Reason Start Time Stop Time Status Last Admin Dose Admin Acetaminophen (Tylenol) 500 mg Q6H PRN ORAL Mild Pain/Temp > 100.5 06/18/19 20:15 07/18/19 20:14 06/18/19 21:51 Dextrose (Dextrose 50%) 25 ml Q30M PRN IV Hypoglycemia 06/19/19 09:45 09/17/19 09:44 Dextrose (Dextrose 50%) 50 ml Q30M PRN IV Hypoglycemia 06/19/19 09:45 09/17/19 09:44 Guaifenesin/ Codeine Phosphate (Robitussin with codeine) 5 ml Q6H PRN ORAL For Cough 06/19/19 10:00 07/19/19 09:59 06/20/19 00:54 Hydromorphone HCl (Dilaudid) 0.25 mg Q3H PRN IVP severe pain 06/20/19 13:00 06/26/19 18:59 Insulin Aspart (NovoLOG) BEFORE MEALS AND HS SUBQ 06/19/19 11:30 09/17/19 11:29 06/19/19 20:18 Levofloxacin (Levaquin) 750 mg QHS ORAL 06/19/19 21:00 06/26/19 20:59 06/20/19 20:08 Lorazepam (Ativan) 1 mg Q6H PRN ORAL For Anxiety 06/18/19 23:30 06/25/19 23:29 06/20/19 00:54 Mirtazapine (Remeron) 15 mg BEDTIME ORAL 06/18/19 23:45 09/16/19 23:44 06/19/19 20:08 Naloxone HCl (Narcan) 0.2 mg Q2M PRN IVP respiratory depression 06/20/19 12:00 09/18/19 11:59 Assessment/Plan Assessment/Plan: Hematology Consultation REQ MD: Era Mon RFC: evaluation of hcc/liver cancer DOS: 06/20/2019 HPI 69-year-old female history of schizophrenia history of hypertension history of diabetes presents with hypoxia, abdominal pain times a few days no aggravating alleviating factors she endorses crampy abdominal pain no diarrhea no known fevers or chills patient does endorse a cough no production patient presents from a care home facility for evaluation for her abdominal pain as well as her hypoxia. surgery called to evaluate. elevated lfts'. leukocytosis. imaging reviewed. Noted on imaging with a large liver mass and onco was consulted, to r/o malignancy, has been een by other consultants and recs noted. Allergies: Coded Allergies: PENICILLINS (Verified Allergy, Unknown, 06/18/19) COVID-19 Screening Contact w/high risk pt: No Recent Travel to affected area: No Experienced COVID-19 symptoms?: Yes COVID-19 symptoms experienced: Cough Medication History Scheduled Benztropine Mesylate* (Benztropine Mesylate*), 1 MG ORAL HS, (Reported) Bisacodyl* (Dulcolax*), 10 AMP ORAL NEEDED, (Reported) Citalopram Hydrobromide* (Celexa*), 20 MG ORAL DAILY, (Reported) Haloperidol* (Haldol*), 5 MG ORAL HS, (Reported) Magnesium Hydroxide (Milk of Magnesia), 30 ML ORAL NEEDED, (Reported) Ranitidine Hcl* (Zantac*), 150 MG ORAL DAILY, (Reported) Scheduled PRN Acetaminophen* (Tylenol*), 500 MG RECTAL Q4H PRN for Mild Pain/Temp > 100.5, ( Reported) Miscellaneous Medications Sennosides (Senna), 8.6 MG PO, (Reported) Patient History Limited by: medical condition History Provided By: Medical Record, PMD Healthcare decision maker Resuscitation status Full Code Advanced Directive on File Past Medical/Surgical History Past Medical/Surgical History: (1) Dehydration (2) Hypoxia (3) Abdominal pain (4) Pneumonia (5) HCC (hepatocellular carcinoma) ROS (review of systems): Constitutional: No fever, no chills, no night sweats, no fatigue Skin: No rashes, lumps, itchiness, dryness HEENT: No [place], ear ache, visual changes, double vision, nosebleeds Breasts: No lumps, pain, discharge Pulmonary: No cough, sputum, shortness of breath, coughing up blood Cardiovascular: No chest pain, tightness, palpitations, syncope, PND GI: No nausea, vomiting, diarrhea, melena, hematochezia, change in appetite, : No dysuria, frequency, urgency, urinary incontinence, foamy urine Musculoskeletal: No joint swelling or muscle pain, trauma, back pain Neurologic: No dizziness, fainting, seizures, changes in smell or taste Psychiatric: No nervousness, stress, or depression, anxiety, hallucinations Endocrine: No weight change, heat or cold intolerance, tremor, insomnia Physical Exam: Vitals: reviewed General: NAD HEENT: nc, at Neck: supple Chest: clear breath sounds bilaterally Cardiovascular: RRR, no s3, s4 Abdomen: soft, nontender, nd Extremities: no cce, normal range of motion Neuro: alert and oriented Labs: noted Imaging: reviewed Assessment and Recs # 7.7 cm left lobe hepatic mass is concerning for hepatocellular carcinoma, particularly given cirrhosis. A large metastasis is also possible. Consider multiphase hepatic protocol MRI. --> also imaging revealed Right renal hypodensities that are too small to characterize. --> seen by gi and surg --> tumor markers are pending --> if afp >200, likely hcc, may still need mri # Pancytopenia -- multiple etiologies and in this case is related to cirrjosis --> peripheral smear has been ordered and does not show significant abnormalities --> Medications have been reviewed --> Continue to monitor for improvement, trend cbc --> Hep panel and HIV have been ordered --> US abd ordered to r/o cirrhosis and hepatosplenomegaly --> DOES SHOW SPLENOMEGALY AND CIRRHOSIS++ --> reverse isolation if ANC is <2000 --> Give neupogen if ANC <1000 --> Transfuse if hgb <7, with 1 unit prbc --> consider bone marrow biopsy if no other causes are found # Coagulopathy - Cirrhosis, ? etiology --> likely will need ffp and vit k if bleeds --> likely to be a chronic issue with cirrhosis # Abd distention, likely ascites --> also r/o COVID --> isolation The timing of this note does not necessarily reflect the time of the patient was seen. Greatly appreciate consultation. Cristobal Staples MD Jun 20, 2019 20:18
--- NOTE | 2019-06-20 20:29 | Consultation ---
DATE OF CONSULTATION: 06/20/2019 PAIN MANAGEMENT CONSULTATION REFERRING PHYSICIAN: Era Acuña M.D. CONSULTING PHYSICIAN: Petros Cole M.D. PHYSICIAN BATH ATTENDANT: Rivas Poole CHIEF COMPLAINT: Body pain. HISTORY OF PRESENT ILLNESS: This is a 69-year-old female, who is being seen in the step-down unit of [facility] [place] pain management consultation. The patient was admitted under the care of Dr. Acuña due to hypoxia, abdominal pain, cough, and congestion, found to have hepatic mass, possible lung nodules were also found, and was admitted again to rule out any kind of pneumonia due to the shortness of breath. She does have some psychiatric issues and agitation. She has been seen by roster clerk, pick pack worker, general surgeon, and psychiatrist. Waiting to be seen by guest services coordinator/oncologist and Infectious Disease. She has been complaining of severe pain. She was started on Dilaudid 0.5 mg IV every three hours as needed, received one dose last night. At this time, she is complaining of some pain. However, the patient is slightly lethargic. At this time, we will reduce the Dilaudid to 0.25 mg IV every three hours as needed for severe pain. The patient is also being ruled out for COVID-19 at this time as per the roster clerk. We were consulted so the patient would have adequate pain control while here in the hospital. PAST MEDICAL HISTORY: Depression, psychosis, GERD, constipation, schizophrenia, diabetes, cirrhosis, and cholelithiasis. SOCIAL HISTORY: As per chart, no known smoking tobacco, drinking alcohol, or IV drug abuse. ALLERGIES: Penicillin. MEDICATIONS: Benztropine, Dulcolax, Celexa, Haldol, milk of magnesia, Zantac, Tylenol, and senna. REVIEW OF SYSTEMS: At this time, denies rash, fever, chills, sweating, dizziness, drowsiness, blurred vision, sore throat, change in her weight. No nausea or vomiting. No dysuria. PHYSICAL EXAMINATION: GENERAL: Alert and awake. VITAL SIGNS: Blood pressure 123/75, heart rate is 111, oxygen saturation 100%, respiratory rate is 23, and temperature 97.9 degrees Fahrenheit. HEENT: PERRLA. NECK: Range of motion is reduced due to the patient's condition. LUNGS: Decreased breath sounds bilaterally. HEART: S1 and S2 regular. ABDOMEN: Tenderness to palpation. BACK: Range of motion is decreased in flexion and extension. EXTREMITIES: Upper and lower extremity range of motion is decreased due to the patient's condition. No cyanosis. No clubbing. Sensory is reduced. Reflexes are normal. No adenopathy. ASSESSMENT AND PLAN: This is a 69-year-old female with intractable pain, metastatic disease, and possible hepatocellular carcinoma. At this time, the patient will be reduced to Dilaudid 0.25 mg every three hours as needed for severe pain. We will add naloxone 0.2 mg IV every two minutes as needed for severe depression. We will add parameters to hold opioids for oversedation or lethargy or systolic blood pressure below 90 or diastolic blood pressure 60, respiratory rate below 12, or oxygen saturation below 92%. The patient was discussed with Dr. Cole and he concurred. We will follow the patient. Thank you very much for the courtesy of this consultation. Petros Cole M.D. VICK Poole DR: Mckay JOB#: [id number] CC:
--- NOTE | 2019-06-20 21:00 | NUR ---
NURSE NOTES: bed bath given linens changed- pt. is incontinent- unable to keep pure wick suction in place- noted a smear of stool during cleaning. Oral care provided- pt. noted coughing- asked pt. if I can bring her cough medicine to help with cough- pt. denying medicine stating she does not like taste- teaching done regarding medicine and benefits- explained several times- pt. continues to refuse medicine, Pulse ox 99%, Pt. remains stable- will continue to monitor pt. and with plan of care.
--- NOTE | 2019-06-20 22:08 | General Progress Note ---
Assessment/Plan Problem List: (1) Dehydration ICD Codes: E86.0 - Dehydration SNOMED: 26478956 (2) Hypoxia ICD Codes: R09.02 - Hypoxemia SNOMED: 184824888 (3) Abdominal pain ICD Codes: R10.9 - Unspecified abdominal pain SNOMED: 99002880 Qualifiers: Qualified Codes: R10.9 - Unspecified abdominal pain (4) Pneumonia ICD Codes: J18.9 - Pneumonia, unspecified organism SNOMED: 151354475 Qualifiers: Qualified Codes: J18.9 - Pneumonia, unspecified organism (5) HCC (hepatocellular carcinoma) ICD Codes: C22.0 - Liver cell carcinoma SNOMED: 646736558 Status: progressing Assessment/Plan: abdominal pain mets cancer? HCC afebrile poor prognosis needs fluids r/o viral pna Subjective ROS Limited/Unobtainable: Yes Allergies: Coded Allergies: PENICILLINS (Verified Allergy, Unknown, 06/18/19) Objective Last 24 Hour Vital Signs Date Time Temp Pulse Resp B/P (MAP) Pulse Ox O2 Delivery O2 Flow Rate FiO2 06/20/19 20:00 97.9 112 20 125/71 (89) 100 06/20/19 20:00 Room Air 06/20/19 19:24 110 06/20/19 16:00 97.9 114 22 127/75 (92) 100 06/20/19 16:00 Room Air 06/20/19 15:20 114 06/20/19 12:00 Room Air 06/20/19 12:00 97.9 111 23 123/75 (91) 100 06/20/19 11:35 114 06/20/19 08:00 124 06/20/19 08:00 Room Air 06/20/19 07:43 97.7 121 21 121/69 (86) 99 06/20/19 04:00 Room Air 06/20/19 04:00 97.8 112 18 115/63 (80) 99 06/20/19 03:36 123 06/20/19 00:00 Room Air 06/20/19 00:00 98.0 118 20 143/62 (89) 98 06/20/19 00:00 118 Intake and Output 06/19/19 06/20/19 19:00 07:00 Intake Total 500 ml Balance 500 ml Intake Oral 500 ml # Voids 2 2 Laboratory Tests 06/20/19 05:50: White Blood Count 11.4#H, Red Blood Count 2.89L, Hemoglobin 9.7L, Hematocrit 27.5L, Mean Corpuscular Volume 95, Mean Corpuscular Hemoglobin 33.6H, Mean Corpuscular Hemoglobin Concent 35.3, Red Cell Distribution Width 16.1H, Platelet Count 144L, Mean Platelet Volume 5.7L, Neutrophils (%) (Auto) 77.2H, Lymphocytes (%) (Auto) 8.0L, Monocytes (%) (Auto) 11.6H, Eosinophils (%) (Auto) 2.5, Basophils (%) (Auto) 0.7, Erythrocyte Sedimentation Rate 105H, Prothrombin Time 13.5H, Prothromb Time International Ratio 1.3H, Activated Partial Thromboplast Time 30, Sodium Level 136, Potassium Level 4.3, Chloride Level 104 , Carbon Dioxide Level 24, Anion Gap 8, Blood Urea Nitrogen 38H, Creatinine 1.0 , Estimat Glomerular Filtration Rate 55.3, Glucose Level 142H, Lactic Acid Level 2.10H, Calcium Level 8.1L, Iron Level 56, Total Iron Binding Capacity 213L , Percent Iron Saturation 26, Unsaturated Iron Binding 157, Total Bilirubin 1.7H , Direct Bilirubin 0.8H, Aspartate Amino Transf (AST/SGOT) 34, Alanine Aminotransferase (ALT/SGPT) 14, Alkaline Phosphatase 131H, C-Reactive Protein, Quantitative 15.5H, Total Protein 7.1, Albumin 2.5L, Globulin 4.6, Albumin/ Globulin Ratio 0.5L, Amylase Level 88, Lipase 172, Alpha Fetoprotein [Pending], Carcinoembryonic Antigen [Pending], CA 19-9 Antigen [Pending], Anti-Nuclear Antibody Screen [Pending], F-Actin IgG Antibody [Pending], Hepatitis B Surface Antigen [Pending], Hepatitis C Antibody [Pending] 06/20/19 11:00: Lactic Acid Level 2.00 06/20/19 16:05: Ferritin 185 Height (Feet): 5 Height (Inches): 4.00 Weight (Pounds): 136 Neck: supple Cardiovascular: regular rhythm Respiratory/Chest: lungs clear Era Acuña MD Jun 20, 2019 22:08
[2019-06-21] VITALS (8 sets, daily range): BP systolic 101–128; BP diastolic 56–78
--- NOTE | 2019-06-21 03:00 | NUR ---
NURSE NOTES: veterinarian laboratory animal care Rajiv made aware - to notify integration assistant Valerie to do blood draw in room 239-1- as she is a hard stick.
[2019-06-21] MEDS: guaiFENesin w/Codeine 5ml Liq ud ORAL PRN (03:17)
--- NOTE | 2019-06-21 03:35 | NUR ---
NURSE NOTES: pt. agitated screaming and trying to get out of bed- talk therapy- pt. states she okay- but then starts to scream again in seconds-trying to climb out of bed...will administer Ativan per- eMAR orders and continue to monitor pt.
--- NOTE | 2019-06-21 04:20 | NUR ---
NURSE NOTES: Pulled Ativan for primary nurse. Nurse scanned medication and gave to patient.
--- NOTE | 2019-06-21 04:30 | NUR ---
NURSE NOTES: pt. stating she cannot urinate- noted moderate amount of twice on anil today -as she is not keeping pure wick in place- Checked bladder with bladder scanner showing 5mls of urine- shortly after pt. had a large amount of urine- pt. stated she felt a lot better- cleaned pt. and comfort measures provided- will continue to monitor pt. and with plan of care.
--- NOTE | 2019-06-21 04:40 | NUR ---
NURSE NOTES: pt. stating she is feeling anxious and restless and would like medicine- talk therapy provided, but unsuccessful - will Administer Ativan- per eMAR orders.
[2019-06-21] MEDS: LORazepam 1mg tab ORAL PRN ×2 (04:43→20:09)
[2019-06-21] MEDS: NovoLOG Insulin Flexpen SUBQ SCH ×4 (05:44→20:23)
--- NOTE | 2019-06-21 06:23 | NUR ---
NURSE NOTES: pt. appears to be resting comfortably in bed- repositioned and turned pt. - will continue to monitor patient, pulse ox 99%.
--- NOTE | 2019-06-21 06:28 | Hematology/Onc Progress Note ---
Assessment/Plan Assessment/Plan Assessment and Recs # 7.7 cm left lobe hepatic mass is concerning for hepatocellular carcinoma, particularly given cirrhosis. A large metastasis is also possible. Consider multiphase hepatic protocol MRI. --> also imaging revealed Right renal hypodensities that are too small to characterize. --> seen by gi and surg --> tumor markers are pending --> if afp >200, likely hcc, may still need mri # Pancytopenia -- multiple etiologies and in this case is related to cirrjosis --> peripheral smear has been ordered and does not show significant abnormalities --> Medications have been reviewed --> Continue to monitor for improvement, trend cbc --> Hep panel and HIV have been ordered --> US abd ordered to r/o cirrhosis and hepatosplenomegaly --> DOES SHOW SPLENOMEGALY AND CIRRHOSIS++ --> reverse isolation if ANC is <2000 --> Give neupogen if ANC <1000 --> Transfuse if hgb <7, with 1 unit prbc --> consider bone marrow biopsy if no other causes are found # Coagulopathy - Cirrhosis, ? etiology --> likely will need ffp and vit k if bleeds --> likely to be a chronic issue with cirrhosis # Abd distention, likely ascites --> also r/o COVID --> isolation The timing of this note does not necessarily reflect the time of the patient was seen. Greatly appreciate consultation. Subjective Constitutional: Denies: no symptoms, chills, fever, malaise, weakness, other HEENT: Denies: no symptoms, eye pain, blurred vision, tearing, double vision, ear pain, ear discharge, nose pain, nose congestion, throat pain, throat swelling, mouth pain, mouth swelling, other Cardiovascular: Denies: no symptoms, chest pain, edema, irregular heart rate, lightheadedness, palpitations, syncope, other Respiratory: Denies: no symptoms, cough, shortness of breath, SOB with excertion, SOB at rest, sputum, wheezing, other Gastrointestinal/Abdominal: Denies: no symptoms, abdomen distended, abdominal pain, black stools, tarry stools, blood in stool, constipated, diarrhea, difficulty swallowing, nausea, poor appetite, poor fluid intake, rectal bleeding , vomiting, other Neurologic/Psychiatric: Denies: no symptoms, anxiety, depressed, emotional problems, headache, numbness, paresthesia, pre-existing deficit, seizure, tingling, tremors, weakness, other Endocrine: Denies: no symptoms, excessive sweating, flushing, intolerance to cold, intolerance to heat, increased hunger, increased thirst, increased urine, unexplained weight gain, unexplained weight loss, other Hematologic/Lymphatic: Denies: no symptoms, anemia, easy bleeding, easy bruising, adenopathy, other Allergies: Coded Allergies: PENICILLINS (Verified Allergy, Unknown, 06/18/19) Subjective 06/20 no events, no bleeding, tumor markers still pending, imaging noted Objective Objective Current Medications Medications (Trade) Dose Ordered Sig/Idalia Route PRN Reason Start Time Stop Time Status Last Admin Dose Admin Acetaminophen (Tylenol) 500 mg Q6H PRN ORAL Mild Pain/Temp > 100.5 06/18/19 20:15 07/18/19 20:14 06/18/19 21:51 Dextrose (Dextrose 50%) 25 ml Q30M PRN IV Hypoglycemia 06/19/19 09:45 09/17/19 09:44 Dextrose (Dextrose 50%) 50 ml Q30M PRN IV Hypoglycemia 06/19/19 09:45 09/17/19 09:44 Guaifenesin/ Codeine Phosphate (Robitussin with codeine) 5 ml Q6H PRN ORAL For Cough 06/19/19 10:00 07/19/19 09:59 06/21/19 03:17 Hydromorphone HCl (Dilaudid) 0.25 mg Q3H PRN IVP severe pain 06/20/19 13:00 06/26/19 18:59 Insulin Aspart (NovoLOG) BEFORE MEALS AND HS SUBQ 06/19/19 11:30 09/17/19 11:29 06/19/19 20:18 Levofloxacin (Levaquin) 750 mg QHS ORAL 06/19/19 21:00 06/26/19 20:59 06/20/19 20:08 Lorazepam (Ativan) 1 mg Q6H PRN ORAL For Anxiety 06/18/19 23:30 06/25/19 23:29 06/21/19 04:43 Mirtazapine (Remeron) 15 mg BEDTIME ORAL 06/18/19 23:45 09/16/19 23:44 3/28/20 20:08 Naloxone HCl (Narcan) 0.2 mg Q2M PRN IVP respiratory depression 06/20/19 12:00 09/18/19 11:59 Last 24 Hour Vital Signs Date Time Temp Pulse Resp B/P (MAP) Pulse Ox O2 Delivery O2 Flow Rate FiO2 06/21/19 04:00 Room Air 06/21/19 04:00 98.0 116 20 123/78 (93) 100 06/21/19 03:42 115 06/21/19 00:00 Room Air 06/21/19 00:00 98.1 115 20 128/68 (88) 99 06/20/19 23:30 111 06/20/19 20:00 97.9 112 20 125/71 (89) 100 06/20/19 20:00 Room Air 06/20/19 19:24 110 06/20/19 16:00 97.9 114 22 127/75 (92) 100 06/20/19 16:00 Room Air 06/20/19 15:20 114 06/20/19 12:00 Room Air 06/20/19 12:00 97.9 111 23 123/75 (91) 100 06/20/19 11:35 114 06/20/19 08:00 124 06/20/19 08:00 Room Air 06/20/19 07:43 97.7 121 21 121/69 (86) 99 06/20/19 04:00 Room Air 06/20/19 04:00 97.8 112 18 115/63 (80) 99 06/20/19 03:36 123 06/20/19 00:00 Room Air 06/20/19 00:00 98.0 118 20 143/62 (89) 98 06/20/19 00:00 118 06/19/19 20:45 97.8 06/19/19 20:00 97.8 116 20 131/71 (91) 98 06/19/19 20:00 Room Air 06/19/19 19:24 115 06/19/19 16:00 Room Air 06/19/19 15:48 110 06/19/19 15:26 97.7 117 20 134/67 (89) 98 06/19/19 15:16 118 06/19/19 12:00 98.1 115 20 118/64 (82) 99 06/19/19 12:00 Room Air 06/19/19 11:34 118 06/19/19 08:00 Room Air 06/19/19 08:00 97.9 107 20 140/69 (92) 98 06/19/19 07:47 101 Intake and Output 06/20/19 06/21/19 19:00 07:00 # Voids 2 Labs Test 06/18/19 15:35 06/19/19 05:00 06/20/19 05:50 06/20/19 11:00 White Blood Count 11.0 K/UL (4.8-10.8) 7.5 K/UL (4.8-10.8) 11.4 K/UL (4.8-10.8) Red Blood Count 2.95 M/UL (4.20-5.40) 2.75 M/UL (4.20-5.40) 2.89 M/UL (4.20-5.40) Hemoglobin 9.9 G/DL (12.0-16.0) 9.3 G/DL (12.0-16.0) 9.7 G/DL (12.0-16.0) Hematocrit 29.2 % (37.0-47.0) 26.2 % (37.0-47.0) 27.5 % (37.0-47.0) Mean Corpuscular Volume 99 FL (80-99) 95 FL (80-99) 95 FL (80-99) Mean Corpuscular Hemoglobin 33.5 PG (27.0-31.0) 34.0 PG (27.0-31.0) 33.6 PG (27.0-31.0) Mean Corpuscular Hemoglobin Concent 33.9 G/DL (32.0-36.0) 35.6 G/DL (32.0-36.0) 35.3 G/DL (32.0-36.0) Red Cell Distribution Width 16.8 % (11.6-14.8) 16.3 % (11.6-14.8) 16.1 % (11.6-14.8) Platelet Count 134 K/UL (150-450) 97 K/UL (150-450) 144 K/UL (150-450) Mean Platelet Volume 7.1 FL (6.5-10.1) 6.4 FL (6.5-10.1) 5.7 FL (6.5-10.1) Neutrophils (%) (Auto) 78.0 % (45.0-75.0) % (45.0-75.0) 77.2 % (45.0-75.0) Lymphocytes (%) (Auto) 8.8 % (20.0-45.0) % (20.0-45.0) 8.0 % (20.0-45.0) Monocytes (%) (Auto) 9.9 % (1.0-10.0) % (1.0-10.0) 11.6 % (1.0-10.0) Eosinophils (%) (Auto) 1.8 % (0.0-3.0) % (0.0-3.0) 2.5 % (0.0-3.0) Basophils (%) (Auto) 1.5 % (0.0-2.0) % (0.0-2.0) 0.7 % (0.0-2.0) Prothrombin Time 12.0 SEC (9.30-11.50) 13.5 SEC (9.30-11.50) Prothromb Time International Ratio 1.1 (0.9-1.1) 1.3 (0.9-1.1) Activated Partial Thromboplast Time 27 SEC (23-33) 30 SEC (23-33) Urine Color Brown Urine Appearance Clear Urine pH 6 (4.5-8.0) Urine Specific [place] 1.020 (1.005-1.035) Urine Protein 1+ (NEGATIVE) Urine Glucose (UA) Negative (NEGATIVE) Urine Ketones 1+ (NEGATIVE) Urine Blood Negative (NEGATIVE) Urine Nitrite Positive (NEGATIVE) Urine Bilirubin Negative (NEGATIVE) Urine Urobilinogen 4 MG/DL (0.0-1.0) Urine Leukocyte Esterase 1+ (NEGATIVE) Urine RBC 2-4 /HPF (0 - 2) Urine WBC 5-10 /HPF (0 - 2) Urine Squamous Epithelial Cells Few /LPF (NONE/OCC) Urine Amorphous Sediment Few /LPF (NONE) Urine Bacteria Few /HPF (NONE) Sodium Level 138 MMOL/L (136-145) 138 MMOL/L (136-145) 136 MMOL/L (136-145) Potassium Level 4.1 MMOL/L (3.5-5.1) 4.2 MMOL/L (3.5-5.1) 4.3 MMOL/L (3.5-5.1) Chloride Level 105 MMOL/L (98-107) 106 MMOL/L (98-107) 104 MMOL/L (98-107) Carbon Dioxide Level 25 MMOL/L (21-32) 24 MMOL/L (21-32) 24 MMOL/L (21-32) Anion Gap 8 mmol/L (5-15) 8 mmol/L (5-15) 8 mmol/L (5-15) Blood Urea Nitrogen 41 mg/dL (7-18) 33 mg/dL (7-18) 38 mg/dL (7-18) Creatinine 0.9 MG/DL (0.55-1.30) 0.7 MG/DL (0.55-1.30) 1.0 MG/DL (0.55-1.30) Estimat Glomerular Filtration Rate > 60 mL/min (>60) > 60 mL/min (>60) 55.3 mL/min (>60) Glucose Level 125 MG/DL (74-106) 88 MG/DL (74-106) 142 MG/DL (74-106) Lactic Acid Level 1.90 mmol/L (0.4-2.0) 2.10 mmol/L (0.4-2.0) 2.00 mmol/L (0.66-2.22) Calcium Level 8.4 MG/DL (8.5-10.1) 7.8 MG/DL (8.5-10.1) 8.1 MG/DL (8.5-10.1) Total Bilirubin 1.6 MG/DL (0.2-1.0) 1.4 MG/DL (0.2-1.0) 1.7 MG/DL (0.2-1.0) Direct Bilirubin 0.7 MG/DL (0.0-0.3) 0.6 MG/DL (0.0-0.3) 0.8 MG/DL (0.0-0.3) Aspartate Amino Transf (AST/SGOT) 47 U/L (15-37) 40 U/L (15-37) 34 U/L (15-37) Alanine Aminotransferase (ALT/SGPT) 18 U/L (12-78) 13 U/L (12-78) 14 U/L (12-78) Alkaline Phosphatase 139 U/L (46-116) 120 U/L (46-116) 131 U/L (46-116) Troponin I 0.011 ng/mL (0.000-0.056) Pro-B-Type Natriuretic Peptide 106 pg/mL (0-125) Total Protein 7.3 G/DL (6.4-8.2) 6.4 G/DL (6.4-8.2) 7.1 G/DL (6.4-8.2) Albumin 2.7 G/DL (3.4-5.0) 2.2 G/DL (3.4-5.0) 2.5 G/DL (3.4-5.0) Globulin 4.6 g/dL 4.2 g/dL 4.6 g/dL Albumin/Globulin Ratio 0.6 (1.0-2.7) 0.5 (1.0-2.7) 0.5 (1.0-2.7) Lipase 168 U/L (73-393) 172 U/L (73-393) Differential Total Cells Counted 100 Neutrophils % (Manual) 74 % (45-75) Lymphocytes % (Manual) 14 % (20-45) Monocytes % (Manual) 5 % (1-10) Eosinophils % (Manual) 7 % (0-3) Basophils % (Manual) 0 % (0-2) Band Neutrophils 0 % (0-8) Platelet Estimate Decreased Platelet Morphology Normal Hypochromasia 2+ Anisocytosis 1+ Spherocytes 1+ Erythrocyte Sedimentation Rate 105 MM/HR (0-30) Iron Level 56 ug/dL (50-175) Total Iron Binding Capacity 213 ug/dL (250-450) Percent Iron Saturation 26 % (15-50) Unsaturated Iron Binding 157 ug/dL (112-346) C-Reactive Protein, Quantitative 15.5 mg/dL (0.00-0.90) Amylase Level 88 U/L (25-115) Test 06/20/19 16:05 Ferritin 185 NG/ML (8-388) Height (Feet): 5 Height (Inches): 4.00 Weight (Pounds): 136 Objective Physical Exam: Vitals: reviewed General: NAD HEENT: nc, at Neck: supple Chest: clear breath sounds bilaterally Cardiovascular: RRR, no s3, s4 Abdomen: soft, nontender, nd Extremities: no cce, normal range of motion Neuro: alert and oriented Cristobal Staples MD Jun 21, 2019 06:28
--- NOTE | 2019-06-21 06:53 | NUR ---
HAND-OFF: Report given to Era Chapman, pt.remains stable and no signs of distress noted- nurse aware to f/u on any am abnormal labs.
--- NOTE | 2019-06-21 07:04 | NUR ---
NURSE NOTES: received patient report from yarely rodriguez. patient is on bed asleep. arousable. agitated last night. ativan given per order. no apetite to eat. will follow plan of care.
--- NOTE | 2019-06-21 10:20 | General Progress Note ---
Assessment/Plan Assessment/Plan: (1) Intractable pain (2) Metastatic disease possible hepatocellular carcinoma Patient will be continued on Dilaudid with parameters. D/w Dr. Cole and he concurred. Subjective Date patient seen: Jun 21, 2019 Time patient seen: 10:15 - am ROS Limited/Unobtainable: Yes Allergies: Coded Allergies: PENICILLINS (Verified Allergy, Unknown, 06/18/19) Subjective In bed no signs of pain, more lethargic today was given Ativan over night as per nurse. No Dilaudid was given. Objective Last 24 Hour Vital Signs Date Time Temp Pulse Resp B/P (MAP) Pulse Ox O2 Delivery O2 Flow Rate FiO2 06/21/19 08:00 97.7 112 19 108/58 (75) 97 06/21/19 08:00 106 06/21/19 07:10 Room Air 06/21/19 06:45 107 18 101/56 (71) 100 06/21/19 06:20 118 20 101/74 (83) 99 06/21/19 04:00 Room Air 06/21/19 04:00 98.0 116 20 123/78 (93) 100 06/21/19 03:42 115 06/21/19 00:00 Room Air 06/21/19 00:00 98.1 115 20 128/68 (88) 99 06/20/19 23:30 111 06/20/19 20:00 97.9 112 20 125/71 (89) 100 06/20/19 20:00 Room Air 06/20/19 19:24 110 06/20/19 16:00 97.9 114 22 127/75 (92) 100 06/20/19 16:00 Room Air 06/20/19 15:20 114 06/20/19 12:00 Room Air 06/20/19 12:00 97.9 111 23 123/75 (91) 100 06/20/19 11:35 114 Intake and Output 06/20/19 06/21/19 19:00 07:00 # Voids 2 Laboratory Tests 06/20/19 11:00: Lactic Acid Level 2.00 06/20/19 16:05: Ferritin 185 Height (Feet): 5 Height (Inches): 4.00 Weight (Pounds): 136 General Appearance: no apparent distress Neck: non-tender, normal alignment Cardiovascular: normal rate, regular rhythm Respiratory/Chest: decreased breath sounds Abdomen: distended Extremities: non-tender Edema: trace edema Skin: warm/dry Joey Gilmore Jun 21, 2019 10:20
--- NOTE | 2019-06-21 10:20 | NUR ---
NURSE NOTES: dr salguero made aware that patient is not eating since yesterday. dr salguero ordered 1/2 NS @ 55ml. will take note and carry out.
--- NOTE | 2019-06-21 10:57 | Infectious Diseases Prog Note ---
Assessment/Plan Assessment/Plan IMPRESSION: Hypoxemia and abnormal CT scan of the chest, more likely metastatic disease. Cirrhosis of liver Portal hypertension, Diabetes mellitus, Hypertension, Cholelithiasis, Anemia, suspected liver neoplasm. RECOMMENDATION: Continue Levaquin. We will follow COVID-19 test. Prognosis is poor Case was D/W RN Subjective ROS Limited/Unobtainable: Yes Constitutional: Reports: anorexia Allergies: Coded Allergies: PENICILLINS (Verified Allergy, Unknown, 06/18/19) Objective Vital Signs Last 24 Hour Vital Signs Date Time Temp Pulse Resp B/P (MAP) Pulse Ox O2 Delivery O2 Flow Rate FiO2 06/21/19 08:00 97.7 112 19 108/58 (75) 97 06/21/19 08:00 106 06/21/19 07:10 Room Air 06/21/19 06:45 107 18 101/56 (71) 100 06/21/19 06:20 118 20 101/74 (83) 99 06/21/19 04:00 Room Air 06/21/19 04:00 98.0 116 20 123/78 (93) 100 06/21/19 03:42 115 06/21/19 00:00 Room Air 06/21/19 00:00 98.1 115 20 128/68 (88) 99 06/20/19 23:30 111 06/20/19 20:00 97.9 112 20 125/71 (89) 100 06/20/19 20:00 Room Air 06/20/19 19:24 110 06/20/19 16:00 97.9 114 22 127/75 (92) 100 06/20/19 16:00 Room Air 06/20/19 15:20 114 06/20/19 12:00 Room Air 06/20/19 12:00 97.9 111 23 123/75 (91) 100 06/20/19 11:35 114 Height (Feet): 5 Height (Inches): 4.00 Weight (Pounds): 136 General Appearance: no acute distress HEENT: mucous membranes moist Respiratory/Chest: normal breath sounds Cardiovascular: tachycardia Abdomen: other - distended Extremities: no edema Neurologic/Psychiatric: other - drowsy Musculoskeletal: atrophy Microbiology Date/Time Source Procedure Growth Status 06/18/19 15:35 Blood Blood Culture - Preliminary NO GROWTH AFTER 48 HOURS Resulted 06/18/19 15:25 Blood Blood Culture - Preliminary NO GROWTH AFTER 48 HOURS Resulted 06/18/19 19:00 Nasal Nares MRSA Culture - Final NO METHICILLIN RESISTANT STAPH AUREUS... Complete 06/18/19 19:00 Rectum - Final NO CARBAPENEM-RESISTANT ENTEROBACTERI... Complete 06/18/19 19:00 Rectum VRE Culture - Final NO VANCOMYCIN RESISTANT ENTEROCOCCUS ... Complete Laboratory Tests Test 06/20/19 11:00 06/20/19 16:05 Lactic Acid Level 2.00 mmol/L (0.66-2.22) Ferritin 185 NG/ML (8-388) Current Medications Medications (Trade) Dose Ordered Sig/Idalia Route PRN Reason Start Time Stop Time Status Last Admin Dose Admin Acetaminophen (Tylenol) 500 mg Q6H PRN ORAL Mild Pain/Temp > 100.5 06/18/19 20:15 07/18/19 20:14 06/18/19 21:51 Dextrose (Dextrose 50%) 25 ml Q30M PRN IV Hypoglycemia 06/19/19 09:45 09/17/19 09:44 Dextrose (Dextrose 50%) 50 ml Q30M PRN IV Hypoglycemia 06/19/19 09:45 09/17/19 09:44 Guaifenesin/ Codeine Phosphate (Robitussin with codeine) 5 ml Q6H PRN ORAL For Cough 06/19/19 10:00 07/19/19 09:59 06/21/19 03:17 Hydromorphone HCl (Dilaudid) 0.25 mg Q3H PRN IVP severe pain 06/20/19 13:00 06/26/19 18:59 Insulin Aspart (NovoLOG) BEFORE MEALS AND HS SUBQ 06/19/19 11:30 09/17/19 11:29 06/19/19 20:18 Levofloxacin (Levaquin) 750 mg QHS ORAL 06/19/19 21:00 06/26/19 20:59 06/20/19 20:08 Lorazepam (Ativan) 1 mg Q6H PRN ORAL For Anxiety 06/18/19 23:30 06/25/19 23:29 06/21/19 04:43 Mirtazapine (Remeron) 15 mg BEDTIME ORAL 06/18/19 23:45 09/16/19 23:44 06/19/19 20:08 Naloxone HCl (Narcan) 0.2 mg Q2M PRN IVP respiratory depression 06/20/19 12:00 09/18/19 11:59 Sodium Chloride 1,000 ml @ 55 mls/hr [id number] IV 06/21/19 11:00 07/21/19 10:59 Manuel Kemp MD Jun 21, 2019 10:57
--- NOTE | 2019-06-21 11:10 | Pulmonology Progress Note ---
Assessment/Plan Assessment/Plan IMPRESSION: 1. Probable metastatic pulmonary disease. 2. Low suspicion for COVID-19. 3. Hepatocellular mass. 4. Schizophrenia. 5. Diabetes mellitus. DISCUSSION: Continue isolation given risk factors for COVID-19 being longterm resident, cough, hypoxia. Discussed with Gastroenterology. Await results of laboratory testing. I will follow carefully. Trip Martines M.D. Subjective Interval Events: None new reported; AFP and CEA pending Constitutional: Reports: no symptoms HEENT: Repors: no symptoms Respiratory: Reports: no symptoms Cardiovascular: Reports: no symptoms Gastrointestinal/Abdominal: Reports: no symptoms Allergies: Coded Allergies: PENICILLINS (Verified Allergy, Unknown, 06/18/19) Objective Last 24 Hour Vital Signs Date Time Temp Pulse Resp B/P (MAP) Pulse Ox O2 Delivery O2 Flow Rate FiO2 06/21/19 08:00 97.7 112 19 108/58 (75) 97 06/21/19 08:00 106 06/21/19 07:10 Room Air 06/21/19 06:45 107 18 101/56 (71) 100 06/21/19 06:20 118 20 101/74 (83) 99 06/21/19 04:00 Room Air 06/21/19 04:00 98.0 116 20 123/78 (93) 100 06/21/19 03:42 115 06/21/19 00:00 Room Air 06/21/19 00:00 98.1 115 20 128/68 (88) 99 06/20/19 23:30 111 06/20/19 20:00 97.9 112 20 125/71 (89) 100 06/20/19 20:00 Room Air 06/20/19 19:24 110 06/20/19 16:00 97.9 114 22 127/75 (92) 100 06/20/19 16:00 Room Air 06/20/19 15:20 114 06/20/19 12:00 Room Air 06/20/19 12:00 97.9 111 23 123/75 (91) 100 06/20/19 11:35 114 Intake and Output 06/20/19 06/21/19 19:00 07:00 # Voids 2 General Appearance: no acute distress HEENT: normocephalic Respiratory/Chest: chest wall non-tender, lungs clear Cardiovascular: normal peripheral pulses, normal rate Abdomen: normal bowel sounds Microbiology Date/Time Source Procedure Growth Status 06/18/19 15:35 Blood Blood Culture - Preliminary NO GROWTH AFTER 48 HOURS Resulted 06/18/19 15:25 Blood Blood Culture - Preliminary NO GROWTH AFTER 48 HOURS Resulted 06/18/19 19:00 Nasal Nares MRSA Culture - Final NO METHICILLIN RESISTANT STAPH AUREUS... Complete 06/18/19 19:00 Rectum - Final NO CARBAPENEM-RESISTANT ENTEROBACTERI... Complete 06/18/19 19:00 Rectum VRE Culture - Final NO VANCOMYCIN RESISTANT ENTEROCOCCUS ... Complete Laboratory Tests 06/20/19 16:05: Ferritin 185 Current Medications Medications (Trade) Dose Ordered Sig/Idalia Route PRN Reason Start Time Stop Time Status Last Admin Dose Admin Acetaminophen (Tylenol) 500 mg Q6H PRN ORAL Mild Pain/Temp > 100.5 06/18/19 20:15 07/18/19 20:14 06/18/19 21:51 Dextrose (Dextrose 50%) 25 ml Q30M PRN IV Hypoglycemia 06/19/19 09:45 09/17/19 09:44 Dextrose (Dextrose 50%) 50 ml Q30M PRN IV Hypoglycemia 06/19/19 09:45 09/17/19 09:44 Guaifenesin/ Codeine Phosphate (Robitussin with codeine) 5 ml Q6H PRN ORAL For Cough 06/19/19 10:00 07/19/19 09:59 06/21/19 03:17 Hydromorphone HCl (Dilaudid) 0.25 mg Q3H PRN IVP severe pain 06/20/19 13:00 06/26/19 18:59 Insulin Aspart (NovoLOG) BEFORE MEALS AND HS SUBQ 06/19/19 11:30 09/17/19 11:29 06/19/19 20:18 Levofloxacin (Levaquin) 750 mg QHS ORAL 06/19/19 21:00 06/26/19 20:59 06/20/19 20:08 Lorazepam (Ativan) 1 mg Q6H PRN ORAL For Anxiety 06/18/19 23:30 06/25/19 23:29 06/21/19 04:43 Mirtazapine (Remeron) 15 mg BEDTIME ORAL 06/18/19 23:45 09/16/19 23:44 06/19/19 20:08 Naloxone HCl (Narcan) 0.2 mg Q2M PRN IVP respiratory depression 06/20/19 12:00 09/18/19 11:59 Sodium Chloride 1,000 ml @ 55 mls/hr [id number] IV 06/21/19 11:00 07/21/19 10:59 Trip Martines MD Jun 21, 2019 11:10
--- NOTE | 2019-06-21 11:14 | NUR ---
*-* INSURANCE *-*. ALL AVAILABLE CLINICALS HAVE BEEN FAXED TO: [facility]#[phone] FAX#[phone] REVIEWS/CLINICALS
--- NOTE | 2019-06-21 12:18 | General Progress Note ---
Assessment/Plan Assessment/Plan: Assessment/Plan Assessment/Plan: Assessment - Cirrhosis, ? etiology - Large liver mass, suspect CA - poor Px - lung nodules - abd distention, likely ascites - r/o COVID -FTT -Anemia -UTI -DM -gallstones -GV Recommendations - Isolation - await COVID status - Check tumor markers - pending - Cirrhsis w/u ([facility], [facility], [facility], [facility]) - Ammonia level -start low dose Propranolol -Repeat labs Subjective ROS Limited/Unobtainable: No Allergies: Coded Allergies: PENICILLINS (Verified Allergy, Unknown, 06/18/19) Objective Last 24 Hour Vital Signs Date Time Temp Pulse Resp B/P (MAP) Pulse Ox O2 Delivery O2 Flow Rate FiO2 06/21/19 12:00 Room Air 06/21/19 11:24 97.9 115 18 115/62 (79) 96 06/21/19 08:00 97.7 112 19 108/58 (75) 97 06/21/19 08:00 106 06/21/19 07:10 Room Air 06/21/19 06:45 107 18 101/56 (71) 100 06/21/19 06:20 118 20 101/74 (83) 99 06/21/19 04:00 Room Air 06/21/19 04:00 98.0 116 20 123/78 (93) 100 06/21/19 03:42 115 06/21/19 00:00 Room Air 06/21/19 00:00 98.1 115 20 128/68 (88) 99 06/20/19 23:30 111 06/20/19 20:00 97.9 112 20 125/71 (89) 100 06/20/19 20:00 Room Air 06/20/19 19:24 110 06/20/19 16:00 97.9 114 22 127/75 (92) 100 06/20/19 16:00 Room Air 06/20/19 15:20 114 Intake and Output 06/20/19 06/21/19 19:00 07:00 # Voids 2 Laboratory Tests 06/20/19 16:05: Ferritin 185 Height (Feet): 5 Height (Inches): 4.00 Weight (Pounds): 136 General Appearance: lethargic EENT: normal ENT inspection Neck: supple Cardiovascular: normal rate Respiratory/Chest: decreased breath sounds Abdomen: soft, hypoactive bowel sounds, distended Extremities: non-tender Howard Childers MD Jun 21, 2019 12:18
--- NOTE | 2019-06-21 14:20 | Surgery Progress Note ---
Surgery Progress Note Subjective Symptoms: improved, tolerating diet, voiding well, passing flatus Objective Last 24 Hour Vital Signs Date Time Temp Pulse Resp B/P (MAP) Pulse Ox O2 Delivery O2 Flow Rate FiO2 06/21/19 12:00 Room Air 06/21/19 12:00 109 06/21/19 11:24 97.9 115 18 115/62 (79) 96 06/21/19 08:00 97.7 112 19 108/58 (75) 97 06/21/19 08:00 106 06/21/19 07:10 Room Air 06/21/19 06:45 107 18 101/56 (71) 100 06/21/19 06:20 118 20 101/74 (83) 99 06/21/19 04:00 Room Air 06/21/19 04:00 98.0 116 20 123/78 (93) 100 06/21/19 03:42 115 06/21/19 00:00 Room Air 06/21/19 00:00 98.1 115 20 128/68 (88) 99 06/20/19 23:30 111 06/20/19 20:00 97.9 112 20 125/71 (89) 100 06/20/19 20:00 Room Air 06/20/19 19:24 110 06/20/19 16:00 97.9 114 22 127/75 (92) 100 06/20/19 16:00 Room Air 06/20/19 15:20 114 I&O Intake and Output 06/20/19 06/21/19 19:00 07:00 # Voids 2 Dressing: dry Wound: clean Cardiovascular: RSR Respiratory: clear Abdomen: soft, non-tender, present bowel sounds Extremities: no tenderness, no cyanosis Laboratory Tests Test 06/20/19 16:05 Ferritin 185 NG/ML ([id number]) Plan Problems: (1) Abdominal pain Assessment & Plan: [age]-year-old female multiple medical comorbidities presented with abdominal discomfort noted to have abnormal LFTs leukocytosis. CT reviewed liver cirrhotic and there is a mass. Possibly carcinoma likely. HCC. Abdominal exam without peritonitis no acute surgical intervention indicated recommended at this time supportive treatment. Will follow with recommendations thank you Await tumor markers prior to paracentesis considerations Consider comfort care/hospice Will follow with recommendations Covid results Thank you The liver is cirrhotic. There is evidence of portal hypertension including splenomegaly and gastric varices. There is a mass in the left lobe, primarily in the lateral segments, but also extending medially. This measures 7.7 x 5 x 4.8 cm in greatest transverse, anteroposterior, and craniocaudal dimensions respectively. This is hypodense/hypoenhancing compared to relatively normal adjacent parenchyma in the portal venous phase. This could reflect early washout of a hepatocellular carcinoma, particularly given cirrhosis. A large metastasis is also possible. Cholelithiasis. 2.2 cm densely calcified stone in the dependent gallbladder. No biliary ductal dilation. Both kidneys demonstrate multiple hypodense lesions, which are too small to characterize. No hydronephrosis. There is no bowel obstruction or perforation. The appendix is not well seen. Leftward pelvic calcification may reflect a subserosal uterine fibroid. No abdominal aortic aneurysm. No acute fracture. IMPRESSION: 7.7 cm left lobe hepatic mass is concerning for hepatocellular carcinoma, particularly given cirrhosis. A large metastasis is also possible. Consider multiphase hepatic protocol MRI. Right renal hypodensities that are too small to characterize. Cholelithiasis. [place] Jun 21, 2019 14:20
[2019-06-21] MEDS: Propranolol 10mg tab ORAL SCH ×2 (14:31→22:00)
--- NOTE | 2019-06-21 14:43 | NUR ---
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 98.6 HR 114 RR 18 B/P 146/65 WBC 11.0 BUN 41 AST 47 ALK PHOS 139 UA+ PROTEIN,KETONES,NITRATE,UROBILINOGEN,LEUKOCYTE ESTERASE,RBC,WBC,BACTERIA CXR=Questionable opacity at the left lung base. Recommend further evaluation with PA and lateral views as clinically indicated. IS: LEVAQUIN IV FLAGYL IV IV BOLUS NS X 2 LITERS ADMITTED TO STEP DOWN @ 1910 STEP DOWN STATUS DCP RETURN TO [facility]
--- NOTE | 2019-06-21 14:49 | NUR ---
NURSE NOTES: bladder scan was done resulted to 47ml. will continue to monitor.
[2019-06-21] MEDS: Levofloxacin 750mg tab ORAL SCH (20:08)
--- NOTE | 2019-06-21 20:09 | NUR ---
NURSE NOTES: PRN Ativan administered as prescribed for extreme anxiety. Pt currently refusing bedside BG check and refusing to eat evening snack. Insulin not administered for safety measures. No s/sx of hypoglycemia or hyperglycemia noted. Pt remains asymptomatic. Pt provided education but continues to decline at this time. Will reattempt. Pt remains resting in bed; Bed remains in the lowest position with the safety wheels engaged, call light within reach, side rails up x3 and bed alarm activated. Will continue plan of care. Will continue to monitor.
--- NOTE | 2019-06-21 20:26 | General Progress Note ---
Assessment/Plan Problem List: (1) Dehydration ICD Codes: E86.0 - Dehydration SNOMED: 59049101 (2) Hypoxia ICD Codes: R09.02 - Hypoxemia SNOMED: 419453897 (3) Abdominal pain ICD Codes: R10.9 - Unspecified abdominal pain SNOMED: 20986994 Qualifiers: Qualified Codes: R10.9 - Unspecified abdominal pain (4) Pneumonia ICD Codes: J18.9 - Pneumonia, unspecified organism SNOMED: 731043273 Qualifiers: Qualified Codes: J18.9 - Pneumonia, unspecified organism (5) HCC (hepatocellular carcinoma) ICD Codes: C22.0 - Liver cell carcinoma SNOMED: 400117092 Assessment/Plan: need to r/o covid 19 has cough abdominal pain mets cancer HCC poor prognosis Subjective ROS Limited/Unobtainable: Yes Allergies: Coded Allergies: PENICILLINS (Verified Allergy, Unknown, 06/18/19) Objective Last 24 Hour Vital Signs Date Time Temp Pulse Resp B/P (MAP) Pulse Ox O2 Delivery O2 Flow Rate FiO2 06/21/19 16:00 Nasal Cannula 2.0 06/21/19 15:53 97.7 95 20 112/67 (82) 99 06/21/19 15:12 112 06/21/19 14:31 109 115/62 06/21/19 12:00 Room Air 06/21/19 12:00 109 06/21/19 11:24 97.9 115 18 115/62 (79) 96 06/21/19 08:00 97.7 112 19 108/58 (75) 97 06/21/19 08:00 106 06/21/19 07:10 Room Air 06/21/19 06:45 107 18 101/56 (71) 100 06/21/19 06:20 118 20 101/74 (83) 99 06/21/19 04:00 Room Air 06/21/19 04:00 98.0 116 20 123/78 (93) 100 06/21/19 03:42 115 06/21/19 00:00 Room Air 06/21/19 00:00 98.1 115 20 128/68 (88) 99 06/20/19 23:30 111 Intake and Output 06/20/19 06/21/19 19:00 07:00 # Voids 2 Height (Feet): 5 Height (Inches): 4.00 Weight (Pounds): 136 Era Acuña MD Jun 21, 2019 20:26
--- NOTE | 2019-06-21 21:10 | NUR ---
NURSE NOTES: Pt noted trying to climb out of bed. Pt disoriented and confused. Pt reoriented and provided education on fall prevention. Pt remains resting in bed; bed remains in lowest position with safety wheels engaged, side rails up x3, call light within reach and bed alarm activated. Will continue to monitor.
--- NOTE | 2019-06-21 22:01 | NUR ---
NURSE NOTES: Inderal 10mg held r/t BP 105/76 Pt is otherwise asymptomatic. Will continue to monitor.
--- NOTE | 2019-06-21 22:47 | NUR ---
NURSE NOTES: Received patient and report from AROLDO Chapman. Patient is observed resting in bed and remains alert and oriented x2-3. Pt noted to be crying and complains of anxiety, will administer PRN Ativan as prescribed. No pain noted upon assessment. Pt is on 2L NC with no s/sx of acute distress. Pt noted to be off tele monitor; placed pt back on tele monitor current HR of 95 noted, no s/sx of acute distress. L AC 18g IV catheter noted which remains asymptomatic, patent and intact but , will replaced IV catheter and provide pt education. 1/2 NS currently infusing as prescribed. Diagnostics reviewed. Pt immediately provided with a bed bath and linen change. SCDs held until venous duplex complete to r/o dvt. Pt remains resting in bed; Bed remains in the lowest position with the safety wheels engaged, call light within reach, side rails up x3 and bed alarm activated. Will continue plan of care. Will continue to monitor.
--- NOTE | 2019-06-21 23:38 | NUR ---
NURSE NOTES: Pt educated on reasons for and indications for changing IV catheter. Pt verbalizes understanding of protocol but refuses placement of new IV catheter at this time. Will reattempt with morning lab draw. Current IV site remains asymptomatic, intact and patent. Current dressing remains clean, dry and intact. Will continue to monitor.
[2019-06-22] VITALS: BP 102/68
[2019-06-22] MEDS: LORazepam 1mg tab ORAL PRN ×3 (02:44→20:49)
--- NOTE | 2019-06-22 02:44 | NUR ---
NURSE NOTES: Pt c/o anxiety. Administered PRN Ativan as prescribed. No adverse effects noted. VS remain WNL. Pt remains resting in bed; bed remains in lowest position with safety wheels engaged, side rails up x3, call light within reach and bed alarm activated. Will continue to monitor.
[2019-06-22 04:00] VITALS: BP 109/72
[2019-06-22] MEDS: Propranolol 10mg tab ORAL SCH ×3 (06:00→22:00)
--- NOTE | 2019-06-22 06:14 | Hematology/Onc Progress Note ---
Assessment/Plan Assessment/Plan Assessment and Recs # 7.7 cm left lobe hepatic mass is concerning for hepatocellular carcinoma, particularly given cirrhosis. A large metastasis is also possible. Consider multiphase hepatic protocol MRI. --> also imaging revealed Right renal hypodensities that are too small to characterize. --> seen by gi and surg --> tumor markers show afp 155, cea 26, ca19.9 1660 --> if afp >200, likely hcc, may still need mri --> High recommend to get a tissue diagnosis to confirm diagnosis # Pancytopenia -- multiple etiologies and in this case is related to cirrjosis --> peripheral smear has been ordered and does not show significant abnormalities --> Medications have been reviewed --> Continue to monitor for improvement, trend cbc --> Hep panel and HIV have been ordered --> US abd ordered to r/o cirrhosis and hepatosplenomegaly --> DOES SHOW SPLENOMEGALY AND CIRRHOSIS++ --> reverse isolation if ANC is <2000 --> Give neupogen if ANC <1000 --> Transfuse if hgb <7, with 1 unit prbc # Coagulopathy - Cirrhosis, ? etiology --> likely will need ffp and vit k if bleeds --> likely to be a chronic issue with cirrhosis # Abd distention, likely ascites --> also r/o COVID --> isolation The timing of this note does not necessarily reflect the time of the patient was seen. Greatly appreciate consultation. Subjective Constitutional: Denies: no symptoms, chills, fever, malaise, weakness, other HEENT: Denies: no symptoms, eye pain, blurred vision, tearing, double vision, ear pain, ear discharge, nose pain, nose congestion, throat pain, throat swelling, mouth pain, mouth swelling, other Cardiovascular: Denies: no symptoms, chest pain, edema, irregular heart rate, lightheadedness, palpitations, syncope, other Respiratory: Denies: no symptoms, cough, shortness of breath, SOB with excertion, SOB at rest, sputum, wheezing, other Gastrointestinal/Abdominal: Denies: no symptoms, abdomen distended, abdominal pain, black stools, tarry stools, blood in stool, constipated, diarrhea, difficulty swallowing, nausea, poor appetite, poor fluid intake, rectal bleeding , vomiting, other Genitourinary: Denies: no symptoms, burning, discharge, frequency, flank pain, hematuria, incontinence, pain, urgency, other Neurologic/Psychiatric: Denies: no symptoms, anxiety, depressed, emotional problems, headache, numbness, paresthesia, pre-existing deficit, seizure, tingling, tremors, weakness, other Endocrine: Denies: no symptoms, excessive sweating, flushing, intolerance to cold, intolerance to heat, increased hunger, increased thirst, increased urine, unexplained weight gain, unexplained weight loss, other Hematologic/Lymphatic: Denies: no symptoms, anemia, easy bleeding, easy bruising, adenopathy, other Allergies: Coded Allergies: PENICILLINS (Verified Allergy, Unknown, 06/18/19) Subjective 06/20 no events, no bleeding, tumor markers still pending, imaging noted 06/21 still somewhat confused this am, trying to crawl out of bed, no bleeding or chills Objective Objective Current Medications Medications (Trade) Dose Ordered Sig/Idalia Route PRN Reason Start Time Stop Time Status Last Admin Dose Admin Acetaminophen (Tylenol) 500 mg Q6H PRN ORAL Mild Pain/Temp > 100.5 06/18/19 20:15 07/18/19 20:14 06/18/19 21:51 Dextrose (Dextrose 50%) 25 ml Q30M PRN IV Hypoglycemia 06/19/19 09:45 09/17/19 09:44 Dextrose (Dextrose 50%) 50 ml Q30M PRN IV Hypoglycemia 06/19/19 09:45 09/17/19 09:44 Guaifenesin/ Codeine Phosphate (Robitussin with codeine) 5 ml Q6H PRN ORAL For Cough 06/19/19 10:00 07/19/19 09:59 06/21/19 03:17 Hydromorphone HCl (Dilaudid) 0.25 mg Q3H PRN IVP severe pain 06/20/19 13:00 06/26/19 18:59 Insulin Aspart (NovoLOG) BEFORE MEALS AND HS SUBQ 06/19/19 11:30 09/17/19 11:29 06/19/19 20:18 Levofloxacin (Levaquin) 750 mg QHS ORAL 06/19/19 21:00 06/26/19 20:59 06/21/19 20:08 Lorazepam (Ativan) 1 mg Q6H PRN ORAL For Anxiety 06/18/19 23:30 06/25/19 23:29 06/22/19 02:44 Mirtazapine (Remeron) 15 mg BEDTIME ORAL 06/18/19 23:45 09/16/19 23:44 06/21/19 20:09 Naloxone HCl (Narcan) 0.2 mg Q2M PRN IVP respiratory depression 06/20/19 12:00 09/18/19 11:59 Propranolol HCl (Inderal) 10 mg Q8HR ORAL 06/21/19 14:00 07/21/19 13:59 06/21/19 14:31 Sodium Chloride 1,000 ml @ 55 mls/hr [id number] IV 06/21/19 11:00 07/21/19 10:59 06/21/19 11:17 Last 24 Hour Vital Signs Date Time Temp Pulse Resp B/P (MAP) Pulse Ox O2 Delivery O2 Flow Rate FiO2 06/22/19 04:00 Nasal Cannula 2.0 06/22/19 03:00 101 06/22/19 00:00 97.6 95 22 102/68 (79) 100 06/22/19 00:00 Nasal Cannula 2.0 06/21/19 23:03 96 06/21/19 20:00 Nasal Cannula 2.0 06/21/19 20:00 98.0 97 20 105/65 (78) 98 06/21/19 19:05 91 06/21/19 16:00 Nasal Cannula 2.0 06/21/19 15:53 97.7 95 20 112/67 (82) 99 06/21/19 15:12 112 06/21/19 14:31 109 115/62 06/21/19 12:00 Room Air 06/21/19 12:00 109 06/21/19 11:24 97.9 115 18 115/62 (79) 96 06/21/19 08:00 97.7 112 19 108/58 (75) 97 06/21/19 08:00 106 06/21/19 07:10 Room Air 06/21/19 06:45 107 18 101/56 (71) 100 06/21/19 06:20 118 20 101/74 (83) 99 06/21/19 04:00 Room Air 06/21/19 04:00 98.0 116 20 123/78 (93) 100 06/21/19 03:42 115 06/21/19 00:00 Room Air 06/21/19 00:00 98.1 115 20 128/68 (88) 99 06/20/19 23:30 111 06/20/19 20:00 97.9 112 20 125/71 (89) 100 06/20/19 20:00 Room Air 06/20/19 19:24 110 06/20/19 16:00 97.9 114 22 127/75 (92) 100 06/20/19 16:00 Room Air 06/20/19 15:20 114 06/20/19 12:00 Room Air 06/20/19 12:00 97.9 111 23 123/75 (91) 100 06/20/19 11:35 114 06/20/19 08:00 124 06/20/19 08:00 Room Air 06/20/19 07:43 97.7 121 21 121/69 (86) 99 Intake and Output 06/21/19 06/22/19 19:00 07:00 Intake Total 385 ml 635 ml Balance 385 ml 635 ml Intake Oral 30 ml IV Total 385 ml 605 ml # Voids 1 Labs Test 06/20/19 05:50 06/20/19 11:00 06/20/19 16:05 White Blood Count 11.4 K/UL (4.8-10.8) Red Blood Count 2.89 M/UL (4.20-5.40) Hemoglobin 9.7 G/DL (12.0-16.0) Hematocrit 27.5 % (37.0-47.0) Mean Corpuscular Volume 95 FL (80-99) Mean Corpuscular Hemoglobin 33.6 PG (27.0-31.0) Mean Corpuscular Hemoglobin Concent 35.3 G/DL (32.0-36.0) Red Cell Distribution Width 16.1 % (11.6-14.8) Platelet Count 144 K/UL (150-450) Mean Platelet Volume 5.7 FL (6.5-10.1) Neutrophils (%) (Auto) 77.2 % (45.0-75.0) Lymphocytes (%) (Auto) 8.0 % (20.0-45.0) Monocytes (%) (Auto) 11.6 % (1.0-10.0) Eosinophils (%) (Auto) 2.5 % (0.0-3.0) Basophils (%) (Auto) 0.7 % (0.0-2.0) Erythrocyte Sedimentation Rate 105 MM/HR (0-30) Prothrombin Time 13.5 SEC (9.30-11.50) Prothromb Time International Ratio 1.3 (0.9-1.1) Activated Partial Thromboplast Time 30 SEC (23-33) Sodium Level 136 MMOL/L (136-145) Potassium Level 4.3 MMOL/L (3.5-5.1) Chloride Level 104 MMOL/L (98-107) Carbon Dioxide Level 24 MMOL/L (21-32) Anion Gap 8 mmol/L (5-15) Blood Urea Nitrogen 38 mg/dL (7-18) Creatinine 1.0 MG/DL (0.55-1.30) Estimat Glomerular Filtration Rate 55.3 mL/min (>60) Glucose Level 142 MG/DL (74-106) Lactic Acid Level 2.10 mmol/L (0.4-2.0) 2.00 mmol/L (0.66-2.22) Calcium Level 8.1 MG/DL (8.5-10.1) Iron Level 56 ug/dL (50-175) Total Iron Binding Capacity 213 ug/dL (250-450) Percent Iron Saturation 26 % (15-50) Unsaturated Iron Binding 157 ug/dL (112-346) Total Bilirubin 1.7 MG/DL (0.2-1.0) Direct Bilirubin 0.8 MG/DL (0.0-0.3) Aspartate Amino Transf (AST/SGOT) 34 U/L (15-37) Alanine Aminotransferase (ALT/SGPT) 14 U/L (12-78) Alkaline Phosphatase 131 U/L (46-116) C-Reactive Protein, Quantitative 15.5 mg/dL (0.00-0.90) Total Protein 7.1 G/DL (6.4-8.2) Albumin 2.5 G/DL (3.4-5.0) Globulin 4.6 g/dL Albumin/Globulin Ratio 0.5 (1.0-2.7) Amylase Level 88 U/L (25-115) Lipase 172 U/L (73-393) Alpha Fetoprotein 155.0 ng/mL (0.0-8.3) Carcinoembryonic Antigen 26.4 ng/mL (0.0-4.7) CA 19-9 Antigen 1665 U/mL (0-35) Ferritin 185 NG/ML (8-388) Height (Feet): 5 Height (Inches): 4.00 Weight (Pounds): 136 Objective Physical Exam: Vitals: reviewed General: NAD HEENT: nc, at Neck: supple Chest: clear breath sounds bilaterally Cardiovascular: RRR, no s3, s4 Abdomen: soft, nontender, nd Extremities: no cce, normal range of motion Neuro: alert and oriented Cristobal Staples MD Jun 22, 2019 06:14
[2019-06-22] MEDS: NovoLOG Insulin Flexpen SUBQ SCH ×4 (06:30→21:00)
--- NOTE | 2019-06-22 06:51 | NUR ---
NURSE NOTES: IV fluids initiated after reorienting patient who was again trying to climb out of bed. Pt stating that she needs to go to the beach. Pt remains resting in bed; bed remains in lowest position with safety wheels engaged, bed alarm activated, side rails up x3 and call light within reach.
--- NOTE | 2019-06-22 07:10 | NUR ---
HAND-OFF: Report given to AROLDO Pittman. Labs still pending, plan of care endorsed.
[2019-06-22 07:27] LABS: BASOPHILS % (AUTO) 1.3 % (0.0-2.0); EOSINOPHILS % (AUTO) 3.1 % (0.0-3.0); HEMOGLOBIN 10.1 G/DL (12.0-16.0); LYMPHOCYTES % (AUTO) 7.5 % (20.0-45.0); MEAN CORPUSCULAR VOLUME 97 FL (80-99); MONOCYTES % (AUTO) 13.1 % (1.0-10.0); PLATELET COUNT 118 K/UL (150-450); RED BLOOD COUNT 2.48 M/UL (4.20-5.40); RED CELL DISTRIBUTION WIDTH 17.9 % (11.6-14.8); WHITE BLOOD COUNT 11.5 K/UL (4.8-10.8)
[2019-06-22 07:38] LABS: ALANINE AMINOTRANSFERASE 9 U/L (12-78); ALBUMIN 2.2 G/DL (3.4-5.0); ALBUMIN/GLOBULIN RATIO 0.5 (1.0-2.7); ALKALINE PHOSPHATASE 112 U/L (46-116); ANION GAP 10 mmol/L (5-15); ASPARTATE AMINO TRANSFERASE 34 U/L (15-37); BILIRUBIN,DIRECT 0.8 MG/DL (0.0-0.3); BILIRUBIN,TOTAL 1.7 MG/DL (0.2-1.0); BLOOD UREA NITROGEN 62 mg/dL (7-18); CALCIUM 7.7 MG/DL (8.5-10.1); CARBON DIOXIDE 22 MMOL/L (21-32); CHLORIDE 103 MMOL/L (98-107); CREATININE 1.2 MG/DL (0.55-1.30); SODIUM 135 MMOL/L (136-145)
[2019-06-22 07:40] LABS: AMMONIA 34 umol/L (11-32)
[2019-06-22 07:46] LABS: INR 1.5 (0.9-1.1)
[2019-06-22 08:00] VITALS: BP 118/79
--- NOTE | 2019-06-22 08:00 | NUR ---
NURSE NOTES: Report received from Caroline KENDRICK. Patient is observed in bed, asleep, but arousable by voice. Respiratory even and unlabored. IV site is asymptomatic, patent, and intact. IVF is running at a prescribed rate. Bed is in lowest position with side rails up x2 and brakes are engaged.
--- NOTE | 2019-06-22 08:40 | NUR ---
NURSE NOTES: Patient is observed attempting to get out of bed. Patient is weak and has unsteady gait. Educated the patient the risk for falls and injury multiple times, however, patient is unable to verbalize understanding and continue to get out of bed. Notified .
--- NOTE | 2019-06-22 08:57 | NUR ---
RD ASSESSMENT & RECOMMENDATIONS SEE CARE ACTIVITY FOR COMPLETE ASSESSMENT DAILY ESTIMATED NEEDS: Needs based on hepatic, pulmonary 61.8kg 25-30 kcals/kg 7248-6044 total kcals 1-1.5 g protein/kg 62-93 g total protein 25-30 mL/kg 8825-4330 total fluid mLs NUTRITION DIAGNOSIS: Swallowing difficulty r/t dysphagia, confusion as evidenced by ROAD TRAIN DRIVER eval, now on puree texture, poor po intake, A&O x3. (CURRENT DIET: CCHO MED, puree, NTL) PO DIET RECOMMENDATIONS: Liberalized REGULAR diet/ texture per ROAD TRAIN DRIVER ADDITIONAL RECOMMENDATIONS: 1) Add GLUCERNA 1 tetra TID w/ meals 2) 1:1 feeds able, currently poor po intake 3) Monitor for hypoglycemia w/ poor po -> consider D5 w/ poor intake 4) Calibrated bed scale wts, monitor trend w/ poor po
--- NOTE | 2019-06-22 10:20 | Pulmonology Progress Note ---
Assessment/Plan Assessment/Plan IMPRESSION: 1. Probable metastatic pulmonary disease. 2. Low suspicion for COVID-19. 3. Hepatocellular mass. Likely carcinoma 4. Schizophrenia. 5. Diabetes mellitus. DISCUSSION: Continue isolation given risk factors for COVID-19 being skilled nursing resident, cough, hypoxia. Discussed with Gastroenterology. Await results of laboratory testing. I will follow carefully. Trip Martines M.D. Subjective Interval Events: No new events Constitutional: Reports: no symptoms HEENT: Repors: no symptoms Respiratory: Reports: no symptoms Cardiovascular: Reports: no symptoms Allergies: Coded Allergies: PENICILLINS (Verified Allergy, Unknown, 06/18/19) Objective Last 24 Hour Vital Signs Date Time Temp Pulse Resp B/P (MAP) Pulse Ox O2 Delivery O2 Flow Rate FiO2 06/22/19 08:00 97.5 116 22 118/79 (92) 100 06/22/19 07:47 Nasal Cannula 2.0 06/22/19 04:00 Nasal Cannula 2.0 06/22/19 04:00 97.5 111 22 109/72 (84) 100 06/22/19 03:00 101 06/22/19 00:00 97.6 95 22 102/68 (79) 100 06/22/19 00:00 Nasal Cannula 2.0 06/21/19 23:03 96 06/21/19 20:00 Nasal Cannula 2.0 06/21/19 20:00 98.0 97 20 105/65 (78) 98 06/21/19 19:05 91 06/21/19 16:00 Nasal Cannula 2.0 06/21/19 15:53 97.7 95 20 112/67 (82) 99 06/21/19 15:12 112 06/21/19 14:31 109 115/62 06/21/19 12:00 Room Air 06/21/19 12:00 109 06/21/19 11:24 97.9 115 18 115/62 (79) 96 Intake and Output 06/21/19 06/22/19 19:00 07:00 Intake Total 385 ml 689.086 ml Balance 385 ml 689.086 ml Intake Oral 30 ml IV Total 385 ml 659.086 ml # Voids 1 General Appearance: no acute distress HEENT: normocephalic Respiratory/Chest: chest wall non-tender, lungs clear Cardiovascular: normal peripheral pulses, normal rate Abdomen: normal bowel sounds Laboratory Tests 06/22/19 06:00: White Blood Count 11.5H, Red Blood Count 2.48L, Hemoglobin 10.1L, Hematocrit 24.0L, Mean Corpuscular Volume 97, Mean Corpuscular Hemoglobin 40.7H, Mean Corpuscular Hemoglobin Concent 42.0H, Red Cell Distribution Width 17.9H, Platelet Count 118L, Mean Platelet Volume 6.2L, Neutrophils (%) (Auto) 75.0, Lymphocytes (%) (Auto) 7.5L, Monocytes (%) (Auto) 13.1H, Eosinophils (%) (Auto) 3.1H, Basophils (%) (Auto) 1.3, Prothrombin Time 16.0H, Prothromb Time International Ratio 1.5H, Sodium Level 135L, Potassium Level 5.0, Chloride Level 103, Carbon Dioxide Level 22, Anion Gap 10, Blood Urea Nitrogen 62H, Creatinine 1.2, Estimat Glomerular Filtration Rate 44.8, Glucose Level 94, Calcium Level 7.7L, Total Bilirubin 1.7H, Direct Bilirubin 0.8H, Aspartate Amino Transf (AST/SGOT) 34, Alanine Aminotransferase (ALT/SGPT) 9L, Alkaline Phosphatase 112, Ammonia 34H, Total Protein 6.5, Albumin 2.2L, Globulin 4.3, Albumin/Globulin Ratio 0.5L Current Medications Medications (Trade) Dose Ordered Sig/Idalia Route PRN Reason Start Time Stop Time Status Last Admin Dose Admin Acetaminophen (Tylenol) 500 mg Q6H PRN ORAL Mild Pain/Temp > 100.5 06/18/19 20:15 07/18/19 20:14 06/18/19 21:51 Dextrose (Dextrose 50%) 25 ml Q30M PRN IV Hypoglycemia 06/19/19 09:45 09/17/19 09:44 Dextrose (Dextrose 50%) 50 ml Q30M PRN IV Hypoglycemia 06/19/19 09:45 09/17/19 09:44 Guaifenesin/ Codeine Phosphate (Robitussin with codeine) 5 ml Q6H PRN ORAL For Cough 06/19/19 10:00 4/27/20 09:59 06/21/19 03:17 Hydromorphone HCl (Dilaudid) 0.25 mg Q3H PRN IVP severe pain 06/20/19 13:00 06/26/19 18:59 Insulin Aspart (NovoLOG) BEFORE MEALS AND HS SUBQ 06/19/19 11:30 09/17/19 11:29 06/19/19 20:18 Levofloxacin (Levaquin) 750 mg QHS ORAL 06/19/19 21:00 06/26/19 20:59 06/21/19 20:08 Lorazepam (Ativan) 1 mg Q6H PRN ORAL For Anxiety 06/18/19 23:30 06/25/19 23:29 06/22/19 02:44 Mirtazapine (Remeron) 15 mg BEDTIME ORAL 06/18/19 23:45 09/16/19 23:44 06/21/19 20:09 Naloxone HCl (Narcan) 0.2 mg Q2M PRN IVP respiratory depression 06/20/19 12:00 09/18/19 11:59 Propranolol HCl (Inderal) 10 mg Q8HR ORAL 06/21/19 14:00 07/21/19 13:59 06/21/19 14:31 Sodium Chloride 1,000 ml @ 55 mls/hr [id number] IV 06/21/19 11:00 07/21/19 10:59 06/22/19 06:35 Trip Martines MD Jun 22, 2019 10:20
--- NOTE | 2019-06-22 10:30 | NUR ---
ST NOTES: REFERRED FOR A SWALLOW EVALUATION BY DR ELLIOTT (PRIMARY DR DAVIS), SEE FULL REPORT. DYSPHAGIA RISK FACTORS FOR THIS 69 Y.O. [place]ONG [place]ER-SPEAKING FEMALE: ACUTE ISSUES: HYPOXIA, ABDOMINAL PAIN AND DISTENSION A FEW DAYS POSSIBLE HCC MET CA IN LIVER CIRROSIS, FATTY LIVER, POSSIBLE GASTRIC/ESOPHAGEAL VARICES, SPLENOMEGALY, DEHYDRATION, COUGH (NO FEVER), R/O COVID (LOW RISK), R/O PNA HAS OPACITY L LUNG BASE PULMONARY NODULE H/O DYSPHAGIA, PSYCH (MDD SCHIZOPHRENIA, SUICIDAL IDEATION ON MEDS), HTN, DM, POLST NO TUBE FEEDINGS BUT SON AGREED TO NGT (12 [address]OV[address]) IF NEEDED. PER GI DR ELLIOTT HOLD ON NGT NOW UNTIL HE CAN R/O ESOPHAGEAL/GASTRIC VARICES (AFTER SHE IS R/O FOR COVID AND HE CAN DO AN EGD). AT SNF ON A SOFT CHEW BITE SIZE AND THIN LIQUIDS BUT OP DYSPHAGIA NOTED ON DIAGNOSES ? WHY. NOW ON A CCHO-MED PUREED AND NECTAR THICK LIQUIDS WITH POOR INTAKE (MOSTLY MIN TO 50% INTAKE) ALERT ONLY WITH MAX CUES (GIVEN ATIVAN SINCE SHE WAS AGITATED AND TRIED TO GET OUT OF BED AT [address] IN THE M[address] PER RD). ABLE TO COMMUNICATE SOME NEEDS. INITIAL IMPRESSIONS: S/S OF MILD TO MODERATE OROPHARYNGEAL DYSPHAGIA WITH INCREASED TRANSIT TIMES. GIVEN NECTAR THICK LIQUIDS VIA SPOON, SHE SWALLOWED WITH FAIR HYOLARYNGEAL EXCURSION AFTER 4-5 SECONDS, NO OVERT ASPIRATION. GIVEN SMALL SIP LEVEL TAKES 4-5 SEC TO SWALLOW AND COUGHS AFTER THE SWALLOW. WILL HOLD ON FURTHER PO TRIALS SINCE SHE IS TALKING AND C/O ABDOMINAL PAIN. HIGH RISK FOR SILENT ASPIRATION AND POOR INTAKE RECOMMENDATIONS: SINCE SHE IS ON HOLD FOR NGT OPTION UNTIL ESOPHAGEAL VARICES CAN BE R/O, WILL RECOMMEND DOWNGRADED DIET OF LIQUIFIED PUREED LIKE NECTAR THICK SOUP CONSISTENCY WITH POSTED PRECAUTIONS AND ONE TO ONE FEEDING. PER RD LIBERALIZE DIET AND SEND GLUCERNA TID TETRA WITH MEALS CONSIDER CALORIE COUNT AND PUSH GLUCERNA CONTINUE WITH ORAL CARE (BRUSH TONGUE AND TEETH MANY MISSING AND IN POOR CONDITION) SKILLED DYSPHAGIA MANAGEMENT AND TX AND MOD BARIUM SWALLOW STUDY WHEN CLEARED FOR COVID19. EDUCATED/TRAINED AROLDO VILLATORO IN POSTED PRECAUTIONS. LEFT MESSAGE WITH DR DAVIS NO RESPONSE. DR ELLIOTT WANTS TO HOLD ON NGT UNTIL CLEARED FOR COVID 19 AND HE CAN R/O ESOPHAGEAL VARICES.
--- NOTE | 2019-06-22 11:26 | General Progress Note ---
Assessment/Plan Assessment/Plan: Assessment/Plan Assessment/Plan: Assessment - Cirrhosis, ? etiology - Large liver mass, suspect CA - poor Px - lung nodules - abd distention, likely ascites - r/o COVID -FTT -Anemia -UTI -DM -gallstones -GV Recommendations - Isolation - await COVID status - Cirrhsis w/u ([facility], [facility], [facility], [facility]) -low dose Propranolol -Repeat labs -tumor markers reviewed>>>? cholangio CA with liver mets -needs MRI or liver biopsy when off isolation -poor po intake not a good candidate for NG given possible varices plan add low dose megace, heparin, fi po intake possible PEG when off isolation Subjective Allergies: Coded Allergies: PENICILLINS (Verified Allergy, Unknown, 06/18/19) Objective Last 24 Hour Vital Signs Date Time Temp Pulse Resp B/P (MAP) Pulse Ox O2 Delivery O2 Flow Rate FiO2 06/22/19 08:00 97.5 116 22 118/79 (92) 100 06/22/19 07:47 Nasal Cannula 2.0 06/22/19 04:00 Nasal Cannula 2.0 06/22/19 04:00 97.5 111 22 109/72 (84) 100 06/22/19 03:00 101 06/22/19 00:00 97.6 95 22 102/68 (79) 100 06/22/19 00:00 Nasal Cannula 2.0 06/21/19 23:03 96 06/21/19 20:00 Nasal Cannula 2.0 06/21/19 20:00 98.0 97 20 105/65 (78) 98 06/21/19 19:05 91 06/21/19 16:00 Nasal Cannula 2.0 06/21/19 15:53 97.7 95 20 112/67 (82) 99 06/21/19 15:12 112 06/21/19 14:31 109 115/62 06/21/19 12:00 Room Air 06/21/19 12:00 109 06/21/19 11:24 97.9 115 18 115/62 (79) 96 Intake and Output 06/21/19 06/22/19 19:00 07:00 Intake Total 385 ml 689.086 ml Balance 385 ml 689.086 ml Intake Oral 30 ml IV Total 385 ml 659.086 ml # Voids 1 Laboratory Tests 06/22/19 06:00: White Blood Count 11.5H, Red Blood Count 2.48L, Hemoglobin 10.1L, Hematocrit 24.0L, Mean Corpuscular Volume 97, Mean Corpuscular Hemoglobin 40.7H, Mean Corpuscular Hemoglobin Concent 42.0H, Red Cell Distribution Width 17.9H, Platelet Count 118L, Mean Platelet Volume 6.2L, Neutrophils (%) (Auto) 75.0, Lymphocytes (%) (Auto) 7.5L, Monocytes (%) (Auto) 13.1H, Eosinophils (%) (Auto) 3.1H, Basophils (%) (Auto) 1.3, Prothrombin Time 16.0H, Prothromb Time International Ratio 1.5H, Sodium Level 135L, Potassium Level 5.0, Chloride Level 103, Carbon Dioxide Level 22, Anion Gap 10, Blood Urea Nitrogen 62H, Creatinine 1.2, Estimat Glomerular Filtration Rate 44.8, Glucose Level 94, Calcium Level 7.7L, Total Bilirubin 1.7H, Direct Bilirubin 0.8H, Aspartate Amino Transf (AST/SGOT) 34, Alanine Aminotransferase (ALT/SGPT) 9L, Alkaline Phosphatase 112, Ammonia 34H, Total Protein 6.5, Albumin 2.2L, Globulin 4.3, Albumin/Globulin Ratio 0.5L Height (Feet): 5 Height (Inches): 4.00 Weight (Pounds): 136 General Appearance: lethargic EENT: normal ENT inspection Neck: normal alignment, supple Cardiovascular: normal rate Respiratory/Chest: decreased breath sounds Abdomen: normal bowel sounds, non tender, soft Extremities: non-tender Howard Childers MD Jun 22, 2019 11:26
[2019-06-22 11:54] VITALS: BP 125/77
--- NOTE | 2019-06-22 12:15 | NUR ---
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 97.5 HR 116 RR 22 B/P 118/79 2L NC O2 SAT @ 98% WBC 11.5 BUN 62 AMMONIA 34 IS: IVF NS @ 55ML/HR HEPARIN SUBC LEVAQUIN PO INDERAL PO STEP DOWN STATUS
--- NOTE | 2019-06-22 12:19 | General Progress Note ---
Assessment/Plan Assessment/Plan: (1) Intractable pain (2) Metastatic disease possible hepatocellular carcinoma Patient will be continued on Dilaudid with parameters. D/w Dr. Cole and he concurred. Subjective Date patient seen: Jun 22, 2019 Time patient seen: 11:45 - am Constitutional: Reports: weakness Respiratory: Reports: shortness of breath Neurologic/Psychiatric: Reports: anxiety Allergies: Coded Allergies: PENICILLINS (Verified Allergy, Unknown, 06/18/19) Subjective Patient is in bed and restraints have been placed due to patient wanting to get out of bed. She has not been given any Dilaudid and shows no signs of pain. Objective Last 24 Hour Vital Signs Date Time Temp Pulse Resp B/P (MAP) Pulse Ox O2 Delivery O2 Flow Rate FiO2 06/22/19 11:54 97.0 98 22 125/77 (93) 100 06/22/19 08:00 97.5 116 22 118/79 (92) 100 06/22/19 07:56 99 06/22/19 07:47 Nasal Cannula 2.0 06/22/19 04:00 Nasal Cannula 2.0 06/22/19 04:00 97.5 111 22 109/72 (84) 100 06/22/19 03:00 101 06/22/19 00:00 97.6 95 22 102/68 (79) 100 06/22/19 00:00 Nasal Cannula 2.0 06/21/19 23:03 96 06/21/19 20:00 Nasal Cannula 2.0 06/21/19 20:00 98.0 97 20 105/65 (78) 98 06/21/19 19:05 91 06/21/19 16:00 Nasal Cannula 2.0 06/21/19 15:53 97.7 95 20 112/67 (82) 99 06/21/19 15:12 112 06/21/19 14:31 109 115/62 Intake and Output 06/21/19 06/22/19 19:00 07:00 Intake Total 385 ml 689.086 ml Balance 385 ml 689.086 ml Intake Oral 30 ml IV Total 385 ml 659.086 ml # Voids 1 Laboratory Tests 06/22/19 06:00: White Blood Count 11.5H, Red Blood Count 2.48L, Hemoglobin 10.1L, Hematocrit 24.0L, Mean Corpuscular Volume 97, Mean Corpuscular Hemoglobin 40.7H, Mean Corpuscular Hemoglobin Concent 42.0H, Red Cell Distribution Width 17.9H, Platelet Count 118L, Mean Platelet Volume 6.2L, Neutrophils (%) (Auto) 75.0, Lymphocytes (%) (Auto) 7.5L, Monocytes (%) (Auto) 13.1H, Eosinophils (%) (Auto) 3.1H, Basophils (%) (Auto) 1.3, Prothrombin Time 16.0H, Prothromb Time International Ratio 1.5H, Sodium Level 135L, Potassium Level 5.0, Chloride Level 103, Carbon Dioxide Level 22, Anion Gap 10, Blood Urea Nitrogen 62H, Creatinine 1.2, Estimat Glomerular Filtration Rate 44.8, Glucose Level 94, Calcium Level 7.7L, Total Bilirubin 1.7H, Direct Bilirubin 0.8H, Aspartate Amino Transf (AST/SGOT) 34, Alanine Aminotransferase (ALT/SGPT) 9L, Alkaline Phosphatase 112, Ammonia 34H, Total Protein 6.5, Albumin 2.2L, Globulin 4.3, Albumin/Globulin Ratio 0.5L Height (Feet): 5 Height (Inches): 4.00 Weight (Pounds): 136 General Appearance: alert EENT: PERRL/EOMI, normal ENT inspection Neck: non-tender, normal alignment Cardiovascular: normal rate, regular rhythm Respiratory/Chest: decreased breath sounds Abdomen: distended Extremities: non-tender Edema: trace edema Neurologic: alert, responsive Skin: warm/dry Joey Gilmore Jun 22, 2019 12:19
--- NOTE | 2019-06-22 13:00 | NUR ---
NURSE NOTES: Received report from Margarita Polanco RN. Patient alert and oriented to name, restless, confused, unable to follow commands. Receiving O2 via nasal cannula @ 2L/min, no s/s of respiratory distress noted. Left AC 18g IV site infusing 1/2NS @ 55 cc/hr, asymptomatic. Noted with bilateral soft wrist restraints, patient attempting to pull on devices and attempting to get out of bed. Skin intact, no redness or edema noted, peripheral pulses present. Bed locked in lowest position with side rails up x 3. All needs attended to. Call light within reach. Bed alarm on. Will continue to monitor.
--- NOTE | 2019-06-22 13:06 | NUR ---
HAND-OFF: Report given to Eileen KENDRICK. Patient is in stable condition.
--- NOTE | 2019-06-22 13:33 | NUR ---
*-* INSURANCE *-*. UPDATED AVAILABLE CLINICALS HAVE BEEN FAXED TO: [facility]#[phone] FAX#[phone] REVIEWS/CLINICALS
--- NOTE | 2019-06-22 14:11 | Infectious Diseases Prog Note ---
Assessment/Plan Assessment/Plan IMPRESSION: Hypoxemia and abnormal CT scan of the chest, more likely metastatic disease. Cirrhosis of liver Portal hypertension, Diabetes mellitus, Hypertension, Cholelithiasis, Anemia, suspected liver neoplasm. RECOMMENDATION: Continue Levaquin. We will follow COVID-19 test. Prognosis is poor Case was D/W RN Subjective ROS Limited/Unobtainable: Yes Neurologic: Reports: confusion, other - on restraint Allergies: Coded Allergies: PENICILLINS (Verified Allergy, Unknown, 06/18/19) Objective Vital Signs Last 24 Hour Vital Signs Date Time Temp Pulse Resp B/P (MAP) Pulse Ox O2 Delivery O2 Flow Rate FiO2 06/22/19 13:08 100 110/61 06/22/19 12:00 Nasal Cannula 2.0 06/22/19 11:54 97.0 98 22 125/77 (93) 100 06/22/19 08:00 97.5 116 22 118/79 (92) 100 06/22/19 07:56 99 06/22/19 07:47 Nasal Cannula 2.0 06/22/19 04:00 Nasal Cannula 2.0 06/22/19 04:00 97.5 111 22 109/72 (84) 100 06/22/19 03:00 101 06/22/19 00:00 97.6 95 22 102/68 (79) 100 06/22/19 00:00 Nasal Cannula 2.0 06/21/19 23:03 96 06/21/19 20:00 Nasal Cannula 2.0 06/21/19 20:00 98.0 97 20 105/65 (78) 98 06/21/19 19:05 91 06/21/19 16:00 Nasal Cannula 2.0 06/21/19 15:53 97.7 95 20 112/67 (82) 99 06/21/19 15:12 112 06/21/19 14:31 109 115/62 Height (Feet): 5 Height (Inches): 4.00 Weight (Pounds): 136 General Appearance: no acute distress HEENT: mucous membranes moist, other - hair loss Respiratory/Chest: lungs clear Cardiovascular: tachycardia Abdomen: distended, other - ascites Extremities: no edema Neurologic/Psychiatric: alert, responsive, disoriented Laboratory Tests Test 06/22/19 06:00 White Blood Count 11.5 K/UL (4.8-10.8) H Red Blood Count 2.48 M/UL (4.20-5.40) L Hemoglobin 10.1 G/DL (12.0-16.0) L Hematocrit 24.0 % (37.0-47.0) L Mean Corpuscular Volume 97 FL (80-99) Mean Corpuscular Hemoglobin 40.7 PG (27.0-31.0) H Mean Corpuscular Hemoglobin Concent 42.0 G/DL (32.0-36.0) H Red Cell Distribution Width 17.9 % (11.6-14.8) H Platelet Count 118 K/UL (150-450) L Mean Platelet Volume 6.2 FL (6.5-10.1) L Neutrophils (%) (Auto) 75.0 % (45.0-75.0) Lymphocytes (%) (Auto) 7.5 % (20.0-45.0) L Monocytes (%) (Auto) 13.1 % (1.0-10.0) H Eosinophils (%) (Auto) 3.1 % (0.0-3.0) H Basophils (%) (Auto) 1.3 % (0.0-2.0) Prothrombin Time 16.0 SEC (9.30-11.50) H Prothromb Time International Ratio 1.5 (0.9-1.1) H Sodium Level 135 MMOL/L (136-145) L Potassium Level 5.0 MMOL/L (3.5-5.1) Chloride Level 103 MMOL/L (98-107) Carbon Dioxide Level 22 MMOL/L (21-32) Anion Gap 10 mmol/L (5-15) Blood Urea Nitrogen 62 mg/dL (7-18) H Creatinine 1.2 MG/DL (0.55-1.30) Estimat Glomerular Filtration Rate 44.8 mL/min (>60) Glucose Level 94 MG/DL (74-106) Calcium Level 7.7 MG/DL (8.5-10.1) L Total Bilirubin 1.7 MG/DL (0.2-1.0) H Direct Bilirubin 0.8 MG/DL (0.0-0.3) H Aspartate Amino Transf (AST/SGOT) 34 U/L (15-37) Alanine Aminotransferase (ALT/SGPT) 9 U/L (12-78) L Alkaline Phosphatase 112 U/L (46-116) Ammonia 34 umol/L (11-32) H Total Protein 6.5 G/DL (6.4-8.2) Albumin 2.2 G/DL (3.4-5.0) L Globulin 4.3 g/dL Albumin/Globulin Ratio 0.5 (1.0-2.7) L Current Medications Medications (Trade) Dose Ordered Sig/Idalia Route PRN Reason Start Time Stop Time Status Last Admin Dose Admin Acetaminophen (Tylenol) 500 mg Q6H PRN ORAL Mild Pain/Temp > 100.5 06/18/19 20:15 07/18/19 20:14 06/18/19 21:51 Dextrose (Dextrose 50%) 25 ml Q30M PRN IV Hypoglycemia 06/19/19 09:45 09/17/19 09:44 Dextrose (Dextrose 50%) 50 ml Q30M PRN IV Hypoglycemia 06/19/19 09:45 09/17/19 09:44 Guaifenesin/ Codeine Phosphate (Robitussin with codeine) 5 ml Q6H PRN ORAL For Cough 06/19/19 10:00 07/19/19 09:59 06/21/19 03:17 Heparin Sodium (Porcine) (Heparin 5000 units/ml) 5,000 units EVERY 12 HOURS SUBQ 06/22/19 21:00 08/06/19 20:59 Hydromorphone HCl (Dilaudid) 0.25 mg Q3H PRN IVP severe pain 06/20/19 13:00 06/26/19 18:59 Insulin Aspart (NovoLOG) BEFORE MEALS AND HS SUBQ 06/19/19 11:30 09/17/19 11:29 06/19/19 20:18 Levofloxacin (Levaquin) 750 mg Q48H ORAL 06/23/19 21:00 06/30/19 20:59 Lorazepam (Ativan) 1 mg Q6H PRN ORAL For Anxiety 06/18/19 23:30 06/25/19 23:29 06/22/19 12:55 Megestrol Acetate (Megace) 400 mg DAILY ORAL 06/23/19 09:00 09/21/19 08:59 Mirtazapine (Remeron) 15 mg BEDTIME ORAL 06/18/19 23:45 09/16/19 23:44 06/21/19 20:09 Naloxone HCl (Narcan) 0.2 mg Q2M PRN IVP respiratory depression 06/20/19 12:00 09/18/19 11:59 Propranolol HCl (Inderal) 10 mg Q8HR ORAL 06/21/19 14:00 07/21/19 13:59 06/21/19 14:31 Sodium Chloride 1,000 ml @ 55 mls/hr [id number] IV 06/21/19 11:00 07/21/19 10:59 06/22/19 06:35 Manuel Kemp MD Jun 22, 2019 14:11
[2019-06-22] MEDS: Hydromorphone 0.5mg/0.5ml inj IVP PRN (15:50)
[2019-06-22 15:51] VITALS: BP 107/73
--- NOTE | 2019-06-22 17:06 | Surgery Progress Note ---
Surgery Progress Note Subjective Symptoms: worse Objective Last 24 Hour Vital Signs Date Time Temp Pulse Resp B/P (MAP) Pulse Ox O2 Delivery O2 Flow Rate FiO2 06/22/19 16:20 97.8 06/22/19 16:00 Nasal Cannula 2.0 06/22/19 15:51 97.8 105 22 107/73 (84) 100 06/22/19 13:08 100 110/61 06/22/19 12:00 99 06/22/19 12:00 Nasal Cannula 2.0 06/22/19 11:54 97.0 98 22 125/77 (93) 100 06/22/19 08:00 97.5 116 22 118/79 (92) 100 06/22/19 07:56 99 06/22/19 07:47 Nasal Cannula 2.0 06/22/19 04:00 Nasal Cannula 2.0 06/22/19 04:00 97.5 111 22 109/72 (84) 100 06/22/19 03:00 101 06/22/19 00:00 97.6 95 22 102/68 (79) 100 06/22/19 00:00 Nasal Cannula 2.0 06/21/19 23:03 96 06/21/19 20:00 Nasal Cannula 2.0 06/21/19 20:00 98.0 97 20 105/65 (78) 98 06/21/19 19:05 91 I&O Intake and Output 06/21/19 06/22/19 19:00 07:00 Intake Total 385 ml 689.086 ml Balance 385 ml 689.086 ml Intake Oral 30 ml IV Total 385 ml 659.086 ml # Voids 1 Cardiovascular: RSR Respiratory: clear Abdomen: soft, distended, non-tender, decreased bowel sounds Extremities: edema, no tenderness, no cyanosis Laboratory Tests Test 06/22/19 06:00 White Blood Count 11.5 K/UL (4.8-10.8) H Red Blood Count 2.48 M/UL (4.20-5.40) L Hemoglobin 10.1 G/DL (12.0-16.0) L Hematocrit 24.0 % (37.0-47.0) L Mean Corpuscular Volume 97 FL (80-99) Mean Corpuscular Hemoglobin 40.7 PG (27.0-31.0) H Mean Corpuscular Hemoglobin Concent 42.0 G/DL (32.0-36.0) H Red Cell Distribution Width 17.9 % (11.6-14.8) H Platelet Count 118 K/UL (150-450) L Mean Platelet Volume 6.2 FL (6.5-10.1) L Neutrophils (%) (Auto) 75.0 % (45.0-75.0) Lymphocytes (%) (Auto) 7.5 % (20.0-45.0) L Monocytes (%) (Auto) 13.1 % (1.0-10.0) H Eosinophils (%) (Auto) 3.1 % (0.0-3.0) H Basophils (%) (Auto) 1.3 % (0.0-2.0) Prothrombin Time 16.0 SEC (9.30-11.50) H Prothromb Time International Ratio 1.5 (0.9-1.1) H Sodium Level 135 MMOL/L (136-145) L Potassium Level 5.0 MMOL/L (3.5-5.1) Chloride Level 103 MMOL/L (98-107) Carbon Dioxide Level 22 MMOL/L (21-32) Anion Gap 10 mmol/L (5-15) Blood Urea Nitrogen 62 mg/dL (7-18) H Creatinine 1.2 MG/DL (0.55-1.30) Estimat Glomerular Filtration Rate 44.8 mL/min (>60) Glucose Level 94 MG/DL (74-106) Calcium Level 7.7 MG/DL (8.5-10.1) L Total Bilirubin 1.7 MG/DL (0.2-1.0) H Direct Bilirubin 0.8 MG/DL (0.0-0.3) H Aspartate Amino Transf (AST/SGOT) 34 U/L (15-37) Alanine Aminotransferase (ALT/SGPT) 9 U/L (12-78) L Alkaline Phosphatase 112 U/L (46-116) Ammonia 34 umol/L (11-32) H Total Protein 6.5 G/DL (6.4-8.2) Albumin 2.2 G/DL (3.4-5.0) L Globulin 4.3 g/dL Albumin/Globulin Ratio 0.5 (1.0-2.7) L Plan Problems: (1) Abdominal pain Assessment & Plan: [age]-year-old female multiple medical comorbidities presented with abdominal discomfort noted to have abnormal LFTs leukocytosis. CT reviewed liver cirrhotic and there is a mass. Possibly carcinoma likely. HCC. Abdominal exam without peritonitis no acute surgical intervention indicated recommended at this time supportive treatment. Will follow with recommendations thank you Await tumor markers prior to paracentesis considerations Consider comfort care/hospice Will follow with recommendations Covid results Thank you The liver is cirrhotic. There is evidence of portal hypertension including splenomegaly and gastric varices. There is a mass in the left lobe, primarily in the lateral segments, but also extending medially. This measures 7.7 x 5 x 4.8 cm in greatest transverse, anteroposterior, and craniocaudal dimensions respectively. This is hypodense/hypoenhancing compared to relatively normal adjacent parenchyma in the portal venous phase. This could reflect early washout of a hepatocellular carcinoma, particularly given cirrhosis. A large metastasis is also possible. Cholelithiasis. 2.2 cm densely calcified stone in the dependent gallbladder. No biliary ductal dilation. Both kidneys demonstrate multiple hypodense lesions, which are too small to characterize. No hydronephrosis. There is no bowel obstruction or perforation. The appendix is not well seen. Leftward pelvic calcification may reflect a subserosal uterine fibroid. No abdominal aortic aneurysm. No acute fracture. IMPRESSION: 7.7 cm left lobe hepatic mass is concerning for hepatocellular carcinoma, particularly given cirrhosis. A large metastasis is also possible. Consider multiphase hepatic protocol MRI. Right renal hypodensities that are too small to characterize. Cholelithiasis. [place] Kearns Jun 22, 2019 17:06
--- NOTE | 2019-06-22 19:14 | NUR ---
HAND-OFF: Report given to Mark Suh RN, using SBAR.
[2019-06-22 20:00] VITALS: BP 132/75
--- NOTE | 2019-06-22 20:26 | General Progress Note ---
Assessment/Plan Problem List: (1) Dehydration ICD Codes: E86.0 - Dehydration SNOMED: 52774773 (2) Hypoxia ICD Codes: R09.02 - Hypoxemia SNOMED: 082638471 (3) Abdominal pain ICD Codes: R10.9 - Unspecified abdominal pain SNOMED: 94821877 Qualifiers: Qualified Codes: R10.9 - Unspecified abdominal pain (4) Pneumonia ICD Codes: J18.9 - Pneumonia, unspecified organism SNOMED: 087612960 Qualifiers: Qualified Codes: J18.9 - Pneumonia, unspecified organism (5) HCC (hepatocellular carcinoma) ICD Codes: C22.0 - Liver cell carcinoma SNOMED: 173071264 Status: progressing Assessment/Plan: resp insuff agitated no fever not hypoxic mets cancer HCC poor prognosis Subjective ROS Limited/Unobtainable: Yes Allergies: Coded Allergies: PENICILLINS (Verified Allergy, Unknown, 06/18/19) Objective Last 24 Hour Vital Signs Date Time Temp Pulse Resp B/P (MAP) Pulse Ox O2 Delivery O2 Flow Rate FiO2 06/22/19 16:20 97.8 06/22/19 16:00 Nasal Cannula 2.0 06/22/19 15:54 103 06/22/19 15:51 97.8 105 22 107/73 (84) 100 06/22/19 13:08 100 110/61 06/22/19 12:00 99 06/22/19 12:00 Nasal Cannula 2.0 06/22/19 11:54 97.0 98 22 125/77 (93) 100 06/22/19 08:00 97.5 116 22 118/79 (92) 100 06/22/19 07:56 99 06/22/19 07:47 Nasal Cannula 2.0 06/22/19 04:00 Nasal Cannula 2.0 06/22/19 04:00 97.5 111 22 109/72 (84) 100 06/22/19 03:00 101 06/22/19 00:00 97.6 95 22 102/68 (79) 100 06/22/19 00:00 Nasal Cannula 2.0 06/21/19 23:03 96 Intake and Output 06/21/19 06/22/19 19:00 07:00 Intake Total 385 ml 689.086 ml Balance 385 ml 689.086 ml Intake Oral 30 ml IV Total 385 ml 659.086 ml # Voids 1 Laboratory Tests 06/22/19 06:00: White Blood Count 11.5H, Red Blood Count 2.48L, Hemoglobin 10.1L, Hematocrit 24.0L, Mean Corpuscular Volume 97, Mean Corpuscular Hemoglobin 40.7H, Mean Corpuscular Hemoglobin Concent 42.0H, Red Cell Distribution Width 17.9H, Platelet Count 118L, Mean Platelet Volume 6.2L, Neutrophils (%) (Auto) 75.0, Lymphocytes (%) (Auto) 7.5L, Monocytes (%) (Auto) 13.1H, Eosinophils (%) (Auto) 3.1H, Basophils (%) (Auto) 1.3, Prothrombin Time 16.0H, Prothromb Time International Ratio 1.5H, Sodium Level 135L, Potassium Level 5.0, Chloride Level 103, Carbon Dioxide Level 22, Anion Gap 10, Blood Urea Nitrogen 62H, Creatinine 1.2, Estimat Glomerular Filtration Rate 44.8, Glucose Level 94, Calcium Level 7.7L, Total Bilirubin 1.7H, Direct Bilirubin 0.8H, Aspartate Amino Transf (AST/SGOT) 34, Alanine Aminotransferase (ALT/SGPT) 9L, Alkaline Phosphatase 112, Ammonia 34H, Total Protein 6.5, Albumin 2.2L, Globulin 4.3, Albumin/Globulin Ratio 0.5L Height (Feet): 5 Height (Inches): 4.00 Weight (Pounds): 136 Cardiovascular: normal rate Respiratory/Chest: lungs clear Era Acuña MD Jun 22, 2019 20:26
[2019-06-22] MEDS: Heparin 5000 units/ml inj SUBQ SCH (20:54)
--- NOTE | 2019-06-22 23:30 | Progress Note ---
DATE: 06/22/2019 SUBJECTIVE: The patient in [facility] [place] in isolation. Continues to be easily agitated and is attempting to come out of bed. MENTAL STATUS EXAMINATION: The patient is confused, disoriented. Mood is agitated. Affect is flat. Thought process, disorganized. Thought content, no suicidal or homicidal ideation. Cognition is impaired. Insight and judgment impaired. ASSESSMENT: 1. Dementia. 2. Acute toxic encephalopathy. 3. Major depressive disorder. PLAN: 1. Lorazepam p.r.n. 2. Olanzapine 5 mg p.o. qhs 3. Continue to follow and readjust the medications. Per Holden M.D. DR: JUSTIN JOB#: [id number] CC: NORA
[2019-06-23] VITALS: BP 122/66
[2019-06-23] MEDS: guaiFENesin w/Codeine 5ml Liq ud ORAL PRN (00:20)
[2019-06-23] MEDS: Hydromorphone 0.5mg/0.5ml inj IVP PRN ×3 (00:23→17:17)
[2019-06-23 04:00] VITALS: BP 114/72
[2019-06-23] MEDS: Propranolol 10mg tab ORAL SCH ×3 (06:00→22:12)
[2019-06-23] MEDS: NovoLOG Insulin Flexpen SUBQ SCH ×4 (06:30→20:11)
[2019-06-23 06:52] LABS: INR 1.4 (0.9-1.1)
--- NOTE | 2019-06-23 07:10 | Hematology/Onc Progress Note ---
Assessment/Plan Assessment/Plan Assessment and Recs # 7.7 cm left lobe hepatic mass is concerning for hepatocellular carcinoma, particularly given cirrhosis. A large metastasis is also possible. Consider multiphase hepatic protocol MRI. --> also imaging revealed Right renal hypodensities that are too small to characterize. --> seen by gi and surg --> tumor markers show afp 155, cea 26, ca19.9 1660 --> if afp >200, likely hcc, may still need mri --> High recommend to get a tissue diagnosis to confirm diagnosis --> agree with gi is likely cholangio v hcc v pancreatic with mets # Pancytopenia -- multiple etiologies and in this case is related to cirrjosis --> peripheral smear has been ordered and does not show significant abnormalities --> Medications have been reviewed --> Continue to monitor for improvement, trend cbc --> Hep panel and HIV NEGATIVE --> US abd ordered to r/o cirrhosis and hepatosplenomegaly --> DOES SHOW SPLENOMEGALY AND CIRRHOSIS++ --> reverse isolation if ANC is <2000 --> Give neupogen if ANC <1000 --> Transfuse if hgb <7, with 1 unit prbc # FTT may need nutrition support --> when off iso may need peg # Coagulopathy - Cirrhosis, ? etiology --> likely will need ffp and vit k if bleeds --> likely to be a chronic issue with cirrhosis # Abd distention, likely ascites --> also r/o COVID --> isolation # Dvt ppx heparin sq The timing of this note does not necessarily reflect the time of the patient was seen. Greatly appreciate consultation. Subjective Constitutional: Denies: no symptoms, chills, fever, malaise, weakness, other HEENT: Denies: no symptoms, eye pain, blurred vision, tearing, double vision, ear pain, ear discharge, nose pain, nose congestion, throat pain, throat swelling, mouth pain, mouth swelling, other Cardiovascular: Denies: no symptoms, chest pain, edema, irregular heart rate, lightheadedness, palpitations, syncope, other Gastrointestinal/Abdominal: Denies: no symptoms, abdomen distended, abdominal pain, black stools, tarry stools, blood in stool, constipated, diarrhea, difficulty swallowing, nausea, poor appetite, poor fluid intake, rectal bleeding , vomiting, other Genitourinary: Denies: no symptoms, burning, discharge, frequency, flank pain, hematuria, incontinence, pain, urgency, other Neurologic/Psychiatric: Denies: no symptoms, anxiety, depressed, emotional problems, headache, numbness, paresthesia, pre-existing deficit, seizure, tingling, tremors, weakness, other Allergies: Coded Allergies: PENICILLINS (Verified Allergy, Unknown, 06/18/19) Subjective 06/20 no events, no bleeding, tumor markers still pending, imaging noted 06/21 still somewhat confused this am, trying to crawl out of bed, no bleeding or chills 06/22 seen by gi for peg when off iso, no bleeding, plt 118k Objective Objective Current Medications Medications (Trade) Dose Ordered Sig/Idalia Route PRN Reason Start Time Stop Time Status Last Admin Dose Admin Acetaminophen (Tylenol) 500 mg Q6H PRN ORAL Mild Pain/Temp > 100.5 06/18/19 20:15 07/18/19 20:14 06/18/19 21:51 Dextrose (Dextrose 50%) 25 ml Q30M PRN IV Hypoglycemia 06/19/19 09:45 09/17/19 09:44 Dextrose (Dextrose 50%) 50 ml Q30M PRN IV Hypoglycemia 06/19/19 09:45 09/17/19 09:44 Guaifenesin/ Codeine Phosphate (Robitussin with codeine) 5 ml Q6H PRN ORAL For Cough 06/19/19 10:00 07/19/19 09:59 06/23/19 00:20 Heparin Sodium (Porcine) (Heparin 5000 units/ml) 5,000 units EVERY 12 HOURS SUBQ 06/22/19 21:00 08/06/19 20:59 Hydromorphone HCl (Dilaudid) 0.25 mg Q3H PRN IVP severe pain 06/20/19 13:00 06/26/19 18:59 06/23/19 00:23 Insulin Aspart (NovoLOG) BEFORE MEALS AND HS SUBQ 06/19/19 11:30 09/17/19 11:29 06/19/19 20:18 Levofloxacin (Levaquin) 750 mg Q48H ORAL 06/23/19 21:00 06/30/19 20:59 Lorazepam (Ativan) 1 mg Q6H PRN ORAL For Anxiety 06/18/19 23:30 06/25/19 23:29 06/22/19 20:49 Megestrol Acetate (Megace) 400 mg DAILY ORAL 06/23/19 09:00 09/21/19 08:59 Mirtazapine (Remeron) 15 mg BEDTIME ORAL 06/18/19 23:45 09/16/19 23:44 06/22/19 20:49 Naloxone HCl (Narcan) 0.2 mg Q2M PRN IVP respiratory depression 06/20/19 12:00 09/18/19 11:59 Olanzapine (ZyPREXA) 5 mg BID ORAL 06/22/19 15:23 08/06/19 15:22 06/22/19 15:42 Propranolol HCl (Inderal) 10 mg Q8HR ORAL 06/21/19 14:00 07/21/19 13:59 06/21/19 14:31 Sodium Chloride 1,000 ml @ 55 mls/hr [id number] IV 06/21/19 11:00 07/21/19 10:59 06/22/19 23:13 Last 24 Hour Vital Signs Date Time Temp Pulse Resp B/P (MAP) Pulse Ox O2 Delivery O2 Flow Rate FiO2 06/23/19 06:00 101 114/72 06/23/19 04:10 Nasal Cannula 2.0 06/23/19 04:00 97.0 106 20 114/72 (86) 100 06/23/19 04:00 101 06/23/19 00:53 97.9 06/23/19 00:00 Nasal Cannula 2.0 06/23/19 00:00 97.0 109 20 122/66 (84) 100 06/23/19 00:00 103 06/22/19 22:00 105 110/75 06/22/19 20:00 Nasal Cannula 2.0 06/22/19 20:00 97.9 104 22 132/75 (94) 100 06/22/19 20:00 103 06/22/19 16:00 Nasal Cannula 2.0 06/22/19 15:54 103 06/22/19 15:51 97.8 105 22 107/73 (84) 100 06/22/19 13:08 100 110/61 06/22/19 12:00 99 06/22/19 12:00 Nasal Cannula 2.0 06/22/19 11:54 97.0 98 22 125/77 (93) 100 06/22/19 08:00 97.5 116 22 118/79 (92) 100 06/22/19 07:56 99 06/22/19 07:47 Nasal Cannula 2.0 06/22/19 04:00 Nasal Cannula 2.0 06/22/19 04:00 97.5 111 22 109/72 (84) 100 06/22/19 03:00 101 06/22/19 00:00 97.6 95 22 102/68 (79) 100 06/22/19 00:00 Nasal Cannula 2.0 06/21/19 23:03 96 06/21/19 20:00 Nasal Cannula 2.0 06/21/19 20:00 98.0 97 20 105/65 (78) 98 06/21/19 19:05 91 06/21/19 16:00 Nasal Cannula 2.0 06/21/19 15:53 97.7 95 20 112/67 (82) 99 06/21/19 15:12 112 06/21/19 14:31 109 115/62 06/21/19 12:00 Room Air 06/21/19 12:00 109 06/21/19 11:24 97.9 115 18 115/62 (79) 96 06/21/19 08:00 97.7 112 19 108/58 (75) 97 06/21/19 08:00 106 06/21/19 07:10 Room Air Intake and Output 06/22/19 06/23/19 18:59 06:59 Intake Total 867.916 ml 55 ml Balance 867.916 ml 55 ml Intake Oral 240 ml IV Total 627.916 ml 55 ml # Voids 3 Labs Test 06/20/19 11:00 06/20/19 16:05 06/22/19 06:00 06/23/19 06:15 Lactic Acid Level 2.00 mmol/L (0.66-2.22) Ferritin 185 NG/ML (8-388) White Blood Count 11.5 K/UL (4.8-10.8) Red Blood Count 2.48 M/UL (4.20-5.40) Hemoglobin 10.1 G/DL (12.0-16.0) Hematocrit 24.0 % (37.0-47.0) Mean Corpuscular Volume 97 FL (80-99) Mean Corpuscular Hemoglobin 40.7 PG (27.0-31.0) Mean Corpuscular Hemoglobin Concent 42.0 G/DL (32.0-36.0) Red Cell Distribution Width 17.9 % (11.6-14.8) Platelet Count 118 K/UL (150-450) Mean Platelet Volume 6.2 FL (6.5-10.1) Neutrophils (%) (Auto) 75.0 % (45.0-75.0) Lymphocytes (%) (Auto) 7.5 % (20.0-45.0) Monocytes (%) (Auto) 13.1 % (1.0-10.0) Eosinophils (%) (Auto) 3.1 % (0.0-3.0) Basophils (%) (Auto) 1.3 % (0.0-2.0) Prothrombin Time 16.0 SEC (9.30-11.50) 14.4 SEC (9.30-11.50) Prothromb Time International Ratio 1.5 (0.9-1.1) 1.4 (0.9-1.1) Sodium Level 135 MMOL/L (136-145) Potassium Level 5.0 MMOL/L (3.5-5.1) Chloride Level 103 MMOL/L (98-107) Carbon Dioxide Level 22 MMOL/L (21-32) Anion Gap 10 mmol/L (5-15) Blood Urea Nitrogen 62 mg/dL (7-18) Creatinine 1.2 MG/DL (0.55-1.30) Estimat Glomerular Filtration Rate 44.8 mL/min (>60) Glucose Level 94 MG/DL (74-106) Calcium Level 7.7 MG/DL (8.5-10.1) Total Bilirubin 1.7 MG/DL (0.2-1.0) Direct Bilirubin 0.8 MG/DL (0.0-0.3) Aspartate Amino Transf (AST/SGOT) 34 U/L (15-37) Alanine Aminotransferase (ALT/SGPT) 9 U/L (12-78) Alkaline Phosphatase 112 U/L (46-116) Ammonia 34 umol/L (11-32) Total Protein 6.5 G/DL (6.4-8.2) Albumin 2.2 G/DL (3.4-5.0) Globulin 4.3 g/dL Albumin/Globulin Ratio 0.5 (1.0-2.7) Height (Feet): 5 Height (Inches): 4.00 Weight (Pounds): 136 Objective Physical Exam: Vitals: reviewed General: NAD HEENT: nc, at Neck: supple Chest: clear breath sounds bilaterally Cardiovascular: RRR, no s3, s4 Abdomen: soft, nontender, nd Extremities: no cce, normal range of motion Neuro: alert and oriented Cristobal Staples MD Jun 23, 2019 07:10
[2019-06-23 07:16] LABS: ALANINE AMINOTRANSFERASE 15 U/L (12-78); ALBUMIN 2.3 G/DL (3.4-5.0); ALBUMIN/GLOBULIN RATIO 0.5 (1.0-2.7); ALKALINE PHOSPHATASE 109 U/L (46-116); ANION GAP 13 mmol/L (5-15); ASPARTATE AMINO TRANSFERASE 43 U/L (15-37); BILIRUBIN,TOTAL 1.5 MG/DL (0.2-1.0); BLOOD UREA NITROGEN 62 mg/dL (7-18); CALCIUM 8.1 MG/DL (8.5-10.1); CARBON DIOXIDE 19 MMOL/L (21-32); CHLORIDE 103 MMOL/L (98-107); CREATININE 1.2 MG/DL (0.55-1.30); POTASSIUM 5.2 MMOL/L (3.5-5.1); SODIUM 135 MMOL/L (136-145)
[2019-06-23 07:19] LABS: BILIRUBIN,DIRECT 0.7 MG/DL (0.0-0.3)
--- NOTE | 2019-06-23 07:46 | NUR ---
HAND-OFF: Report given to Andreea KENDRICK.
--- NOTE | 2019-06-23 07:58 | General Progress Note ---
Assessment/Plan Status: progressing Assessment/Plan: Assessment/Plan Assessment/Plan: Assessment - Cirrhosis, ? etiology - Large liver mass, suspect CA - poor Px - lung nodules - abd distention, likely ascites - r/o COVID -FTT -Anemia -UTI -DM -gallstones -GV Recommendations - Isolation - await COVID status - Cirrhsis w/u ([facility], [facility], [facility], [facility]) -low dose Propranolol>>>>will increase to 12.5 tid -Repeat labs -tumor markers reviewed>>>? cholangio CA with liver mets -needs MRI or liver biopsy when off isolation -poor po intake not a good candidate for NG given possible varices plan add low dose megace, heparin, fu po intake possible EGD/ PEG when off isolation dc Remeron add ppi Subjective ROS Limited/Unobtainable: No Allergies: Coded Allergies: PENICILLINS (Verified Allergy, Unknown, 06/18/19) Objective Last 24 Hour Vital Signs Date Time Temp Pulse Resp B/P (MAP) Pulse Ox O2 Delivery O2 Flow Rate FiO2 06/23/19 06:00 101 114/72 06/23/19 04:10 Nasal Cannula 2.0 06/23/19 04:00 97.0 106 20 114/72 (86) 100 06/23/19 04:00 101 06/23/19 00:53 97.9 06/23/19 00:00 Nasal Cannula 2.0 06/23/19 00:00 97.0 109 20 122/66 (84) 100 06/23/19 00:00 103 06/22/19 22:00 105 110/75 06/22/19 20:00 Nasal Cannula 2.0 06/22/19 20:00 97.9 104 22 132/75 (94) 100 06/22/19 20:00 103 06/22/19 16:00 Nasal Cannula 2.0 06/22/19 15:54 103 06/22/19 15:51 97.8 105 22 107/73 (84) 100 06/22/19 13:08 100 110/61 06/22/19 12:00 99 06/22/19 12:00 Nasal Cannula 2.0 06/22/19 11:54 97.0 98 22 125/77 (93) 100 06/22/19 08:00 97.5 116 22 118/79 (92) 100 Intake and Output 06/22/19 06/23/19 19:00 07:00 Intake Total 900 ml Balance 900 ml Intake Oral 240 ml IV Total 660 ml # Voids 3 2 Laboratory Tests 06/23/19 06:15: White Blood Count [Pending], Red Blood Count [Pending], Hemoglobin [Pending], Hematocrit [Pending], Mean Corpuscular Volume [Pending], Mean Corpuscular Hemoglobin [Pending], Mean Corpuscular Hemoglobin Concent [Pending], Red Cell Distribution Width [Pending], Platelet Count [Pending], Mean Platelet Volume [ Pending], Neutrophils (%) (Auto) [Pending], Lymphocytes (%) (Auto) [Pending], Monocytes (%) (Auto) [Pending], Eosinophils (%) (Auto) [Pending], Basophils (%) (Auto) [Pending], Prothrombin Time 14.4H, Prothromb Time International Ratio 1.4H, Sodium Level 135L, Potassium Level 5.2H, Chloride Level 103, Carbon Dioxide Level 19L, Anion Gap 13, Blood Urea Nitrogen 62H, Creatinine 1.2, Estimat Glomerular Filtration Rate 44.8, Glucose Level 85, Calcium Level 8.1L, Total Bilirubin 1.5H, Direct Bilirubin 0.7H, Aspartate Amino Transf (AST/SGOT) 43H, Alanine Aminotransferase (ALT/SGPT) 15, Alkaline Phosphatase 109, Total Protein 6.6, Albumin 2.3L, Globulin 4.3, Albumin/Globulin Ratio 0.5L Height (Feet): 5 Height (Inches): 4.00 Weight (Pounds): 136 General Appearance: lethargic EENT: normal ENT inspection Neck: supple Cardiovascular: tachycardia Respiratory/Chest: decreased breath sounds Abdomen: normal bowel sounds, non tender, soft Extremities: non-tender Howard Childers MD Jun 23, 2019 07:58
[2019-06-23 08:00] VITALS: BP 133/72
--- NOTE | 2019-06-23 08:00 | NUR ---
NURSE NOTES: Report received from AROLDO Strauss. Pt in stable condition, restless in bed. A+Ox1. Respirations even and unlabored on 2 L NC. Pt is coughing. Vitals stable as documented. Pt ST on the monitor, 105 bpm. Iv site running fluids @ prescribed rate. Bed at lowest position, brakes engaged, siderails x2, bed alarm on, and call light within reach. Pt shows no signs of acute distress, will continue to monitor. Bilateral soft wrist restraints noted with no sign of skin breakdown; pulses present.
--- NOTE | 2019-06-23 08:40 | Pulmonology Progress Note ---
Assessment/Plan Assessment/Plan IMPRESSION: 1. Probable metastatic pulmonary disease. 2. Low suspicion for COVID-19. 3. Hepatocellular mass. Likely carcinoma 4. Schizophrenia. 5. Diabetes mellitus. DISCUSSION: Continue isolation given risk factors for COVID-19 being long term resident, cough, hypoxia. Discussed with Gastroenterology. Await results of laboratory testing. I will follow carefully. Trip Martines M.D. Subjective Interval Events: None new; saturating well on 2L/min O2 Constitutional: Reports: no symptoms HEENT: Repors: no symptoms Respiratory: Reports: no symptoms Cardiovascular: Reports: no symptoms Gastrointestinal/Abdominal: Reports: no symptoms Allergies: Coded Allergies: PENICILLINS (Verified Allergy, Unknown, 06/18/19) Objective Last 24 Hour Vital Signs Date Time Temp Pulse Resp B/P (MAP) Pulse Ox O2 Delivery O2 Flow Rate FiO2 06/23/19 06:00 101 114/72 06/23/19 04:10 Nasal Cannula 2.0 06/23/19 04:00 97.0 106 20 114/72 (86) 100 06/23/19 04:00 101 06/23/19 00:53 97.9 06/23/19 00:00 Nasal Cannula 2.0 06/23/19 00:00 97.0 109 20 122/66 (84) 100 06/23/19 00:00 103 06/22/19 22:00 105 110/75 06/22/19 20:00 Nasal Cannula 2.0 06/22/19 20:00 97.9 104 22 132/75 (94) 100 06/22/19 20:00 103 06/22/19 16:00 Nasal Cannula 2.0 06/22/19 15:54 103 06/22/19 15:51 97.8 105 22 107/73 (84) 100 06/22/19 13:08 100 110/61 06/22/19 12:00 99 06/22/19 12:00 Nasal Cannula 2.0 06/22/19 11:54 97.0 98 22 125/77 (93) 100 Intake and Output 06/22/19 06/23/19 19:00 07:00 Intake Total 900 ml Balance 900 ml Intake Oral 240 ml IV Total 660 ml # Voids 3 2 General Appearance: no acute distress HEENT: normocephalic Respiratory/Chest: chest wall non-tender Cardiovascular: normal peripheral pulses Abdomen: normal bowel sounds Laboratory Tests 06/23/19 06:15: White Blood Count [Pending], Red Blood Count [Pending], Hemoglobin [Pending], Hematocrit [Pending], Mean Corpuscular Volume [Pending], Mean Corpuscular Hemoglobin [Pending], Mean Corpuscular Hemoglobin Concent [Pending], Red Cell Distribution Width [Pending], Platelet Count [Pending], Mean Platelet Volume [ Pending], Neutrophils (%) (Auto) [Pending], Lymphocytes (%) (Auto) [Pending], Monocytes (%) (Auto) [Pending], Eosinophils (%) (Auto) [Pending], Basophils (%) (Auto) [Pending], Prothrombin Time 14.4H, Prothromb Time International Ratio 1.4H, Sodium Level 135L, Potassium Level 5.2H, Chloride Level 103, Carbon Dioxide Level 19L, Anion Gap 13, Blood Urea Nitrogen 62H, Creatinine 1.2, Estimat Glomerular Filtration Rate 44.8, Glucose Level 85, Calcium Level 8.1L, Total Bilirubin 1.5H, Direct Bilirubin 0.7H, Aspartate Amino Transf (AST/SGOT) 43H, Alanine Aminotransferase (ALT/SGPT) 15, Alkaline Phosphatase 109, Total Protein 6.6, Albumin 2.3L, Globulin 4.3, Albumin/Globulin Ratio 0.5L Current Medications Medications (Trade) Dose Ordered Sig/Idalia Route PRN Reason Start Time Stop Time Status Last Admin Dose Admin Acetaminophen (Tylenol) 500 mg Q6H PRN ORAL Mild Pain/Temp > 100.5 06/18/19 20:15 07/18/19 20:14 06/18/19 21:51 Dextrose (Dextrose 50%) 25 ml Q30M PRN IV Hypoglycemia 06/19/19 09:45 09/17/19 09:44 Dextrose (Dextrose 50%) 50 ml Q30M PRN IV Hypoglycemia 06/19/19 09:45 09/17/19 09:44 Guaifenesin/ Codeine Phosphate (Robitussin with codeine) 5 ml Q6H PRN ORAL For Cough 06/19/19 10:00 07/19/19 09:59 06/23/19 00:20 Heparin Sodium (Porcine) (Heparin 5000 units/ml) 5,000 units EVERY 12 HOURS SUBQ 06/22/19 21:00 08/06/19 20:59 Hydromorphone HCl (Dilaudid) 0.25 mg Q3H PRN IVP severe pain 06/20/19 13:00 06/26/19 18:59 06/23/19 00:23 Insulin Aspart (NovoLOG) BEFORE MEALS AND HS SUBQ 06/19/19 11:30 09/17/19 11:29 06/19/19 20:18 Levofloxacin (Levaquin) 750 mg Q48H ORAL 06/23/19 21:00 06/30/19 20:59 Lorazepam (Ativan) 1 mg Q6H PRN ORAL For Anxiety 06/18/19 23:30 06/25/19 23:29 06/22/19 20:49 Megestrol Acetate (Megace) 400 mg DAILY ORAL 06/23/19 09:00 09/21/19 08:59 Naloxone HCl (Narcan) 0.2 mg Q2M PRN IVP respiratory depression 06/20/19 12:00 09/18/19 11:59 Olanzapine (ZyPREXA) 5 mg BID ORAL 06/22/19 15:23 08/06/19 15:22 06/22/19 15:42 Pantoprazole (Protonix) 40 mg DAILY IVP 06/23/19 09:00 07/23/19 08:59 Propranolol HCl (Inderal) 12.5 mg Q8HR ORAL 06/23/19 14:00 07/21/19 13:59 UNV Sodium Chloride 1,000 ml @ 55 mls/hr [id number] IV 06/21/19 11:00 07/21/19 10:59 06/22/19 23:13 Trip Martines MD Jun 23, 2019 08:40
[2019-06-23] MEDS: Heparin 5000 units/ml inj SUBQ SCH ×2 (09:00→19:28)
[2019-06-23] MEDS: Pantoprazole Inj IVP SCH (09:02)
[2019-06-23] MEDS: Megace 400mg/10ml Susp ORAL SCH (09:02)
[2019-06-23] MEDS: LORazepam 1mg tab ORAL PRN ×2 (09:03→23:43)
[2019-06-23 09:06] LABS: PLATELET COUNT 125 K/UL (150-450); RED CELL DISTRIBUTION WIDTH 18.4 % (11.6-14.8)
--- NOTE | 2019-06-23 09:06 | NUR ---
NURSE NOTES: Pt screaming and thrashing in bed. Pt did not want breakfast. Ativan PRN administered.
--- NOTE | 2019-06-23 09:30 | NUR ---
NURSE NOTES: Covid 19 swab re-sent to lab
--- NOTE | 2019-06-23 10:28 | NUR ---
ST NOTES: SWALLOW STATUS: PATIENT SEEN FOR DYSPHAGIA, SEE SWALLOW EVALUATION REPORT. GOALS FOR INTAKE NOT MET (REFUSED MOSTLY AND 10%) AND COMPOUNDED BY THE FACT THAT THE PATIENT NEEDS TO BE FED AND BECAUSE SHE HAS A LOT OF ABDOMINAL PAIN FROM HER ABDOMINAL DISTENTION. SHE IS YELLING OUT IN ABOUT HER PAIN AND SHE ALSO ASKS FOR WATER IN [place]. PER RN, THE PATIENT MAY GO ON COMFORT MEASURES DUE TO HER LIVER MASS (SHE MAY HAVE HCC HEPATOCELLULAR CANCER). UNABLE TO HAVE A NGT NOW UNTIL SHE IS R/O FOR COVID 19. SHE WILL THEN REQUIRE AN EGD TO R/O ESOPHAGEAL/GASTRIC VARICES PRIOR TO CLEARANCE FOR NGT. GOALS MET FOR STAFF (RN, MANJINDER) EDUCATED/TRAINED IN POSTED ASPIRATION PRECAUTIONS. PATIENT TOOK LIMITED PO TRIALS OF THIN LIQUIDS TSP WITH BUSINESS DEVELOPMENT DIRECTOR. SHE SWALLOWED W/IN 2 SECONDS BUT COUGHED AFTER THE SWALLOW. GIVEN NECTAR THICK (GLUCERNA) LIQUID (NTL) TSP, SHE SWALLOWED W/IN 2 SECONDS, NO ORAL RESIDUE NOR OVERT ASPIRATION. PATIENT REFUSED TRIALS AFTER 3 MORE TRIALS OF NTL. STILL UNABLE TO HAVE A MODIFIED BARIUM SWALLOW STUDY (TO FURTHER ASSESS SWALLOW ANATOMY/PHYSIOLOGY, R/O SILENT ASPIRATION, AND ATTEMPT TRIAL TX TECHNIQUES) SINCE SHE IS STILL ON R/O COVID 19 STATUS PLAN: CONTINUE WITH PO INTAKE OF LIQUIFIED PUREED LIKE NECTAR THICK SOUP CONSISTENCY TSP LEVEL AND USING OTHER STRICT ASPIRATION PRECAUTIONS AND ONE TO ONE FEEDING. HOB 70 DEGREES OR TOLERATED SHE HAS PAIN IN HER ABDOMEN WHEN SHE IS AT 90 DEGREES. MODIFIED BARIUM SWALLOW STUDY (AFTER R/O COVID19) AWAIT EGD TO R/O ESOPHAGEAL/GASTRIC VARICES TO SEE IF SHE CAN HAVE AN NGT PLACED TEMPORARILY.
--- NOTE | 2019-06-23 10:52 | General Progress Note ---
Assessment/Plan Assessment/Plan: (1) Intractable pain (2) Metastatic disease possible hepatocellular carcinoma Patient will be continued on Dilaudid with parameters. D/w Dr. Cole and he concurred. Subjective Date patient seen: Jun 24, 2019 Time patient seen: 10:30 - am Constitutional: Reports: weakness Respiratory: Reports: shortness of breath Gastrointestinal/Abdominal: Reports: abdominal pain Neurologic/Psychiatric: Reports: anxiety Allergies: Coded Allergies: PENICILLINS (Verified Allergy, Unknown, 06/18/19) Subjective Patient is c/o pain had 2 doses of the Dilaudid in the last 24hrs. Pain has been tolerated on the Dilaudid. D/w Nurse. Objective Last 24 Hour Vital Signs Date Time Temp Pulse Resp B/P (MAP) Pulse Ox O2 Delivery O2 Flow Rate FiO2 06/23/19 08:00 98.0 104 20 133/72 (92) 98 06/23/19 06:00 101 114/72 06/23/19 04:10 Nasal Cannula 2.0 06/23/19 04:00 97.0 106 20 114/72 (86) 100 06/23/19 04:00 101 06/23/19 00:53 97.9 06/23/19 00:00 Nasal Cannula 2.0 06/23/19 00:00 97.0 109 20 122/66 (84) 100 06/23/19 00:00 103 06/22/19 22:00 105 110/75 06/22/19 20:00 Nasal Cannula 2.0 06/22/19 20:00 97.9 104 22 132/75 (94) 100 06/22/19 20:00 103 06/22/19 16:00 Nasal Cannula 2.0 06/22/19 15:54 103 06/22/19 15:51 97.8 105 22 107/73 (84) 100 06/22/19 13:08 100 110/61 06/22/19 12:00 99 06/22/19 12:00 Nasal Cannula 2.0 06/22/19 11:54 97.0 98 22 125/77 (93) 100 Intake and Output 06/22/19 06/23/19 18:59 06:59 Intake Total 867.916 ml 55 ml Balance 867.916 ml 55 ml Intake Oral 240 ml IV Total 627.916 ml 55 ml # Voids 3 2 Laboratory Tests 06/23/19 06:15: Prothrombin Time 14.4H, Prothromb Time International Ratio 1.4H, Sodium Level 135L, Potassium Level 5.2H, Chloride Level 103, Carbon Dioxide Level 19L, Anion Gap 13, Blood Urea Nitrogen 62H, Creatinine 1.2, Estimat Glomerular Filtration Rate 44.8, Glucose Level 85, Calcium Level 8.1L, Total Bilirubin 1.5H, Direct Bilirubin 0.7H, Aspartate Amino Transf (AST/SGOT) 43H, Alanine Aminotransferase (ALT/SGPT) 15, Alkaline Phosphatase 109, Total Protein 6.6, Albumin 2.3L, Globulin 4.3, Albumin/Globulin Ratio 0.5L 06/23/19 08:50: White Blood Count 18.0#H, Red Blood Count 2.87L, Hemoglobin 10.7L, Hematocrit 27.6L, Mean Corpuscular Volume 96, Mean Corpuscular Hemoglobin 37.4H, Mean Corpuscular Hemoglobin Concent 38.9H, Red Cell Distribution Width 18.4H, Platelet Count 125L, Mean Platelet Volume 5.8L, Neutrophils (%) (Auto) , Lymphocytes (%) (Auto) , Monocytes (%) (Auto) , Eosinophils (%) (Auto) , Basophils (%) (Auto) , Differential Total Cells Counted 100, Neutrophils % ( Manual) 77H, Lymphocytes % (Manual) 8L, Monocytes % (Manual) 13H, Eosinophils % (Manual) 2, Basophils % (Manual) 0, Band Neutrophils 0, Platelet Estimate DecreasedL, Platelet Morphology Normal, Hypochromasia 1+, Anisocytosis 2+, Spherocytes 2+ Height (Feet): 5 Height (Inches): 4.00 Weight (Pounds): 136 General Appearance: no apparent distress EENT: PERRL/EOMI, normal ENT inspection Neck: non-tender, normal alignment Cardiovascular: normal rate, regular rhythm Respiratory/Chest: decreased breath sounds Abdomen: distended Extremities: non-tender Edema: trace edema Neurologic: alert Skin: normal pigmentation Joey Gilmore Jun 23, 2019 10:52
--- NOTE | 2019-06-23 11:07 | Surgery Progress Note ---
Surgery Progress Note Subjective Additional Comments labs noted markers noted ill appearing uncomfortable in pain no n/v/f/c Objective Last 24 Hour Vital Signs Date Time Temp Pulse Resp B/P (MAP) Pulse Ox O2 Delivery O2 Flow Rate FiO2 06/23/19 08:00 98.0 104 20 133/72 (92) 98 06/23/19 06:00 101 114/72 06/23/19 04:10 Nasal Cannula 2.0 06/23/19 04:00 97.0 106 20 114/72 (86) 100 06/23/19 04:00 101 06/23/19 00:53 97.9 06/23/19 00:00 Nasal Cannula 2.0 06/23/19 00:00 97.0 109 20 122/66 (84) 100 06/23/19 00:00 103 06/22/19 22:00 105 110/75 06/22/19 20:00 Nasal Cannula 2.0 06/22/19 20:00 97.9 104 22 132/75 (94) 100 06/22/19 20:00 103 06/22/19 16:00 Nasal Cannula 2.0 06/22/19 15:54 103 06/22/19 15:51 97.8 105 22 107/73 (84) 100 06/22/19 13:08 100 110/61 06/22/19 12:00 99 06/22/19 12:00 Nasal Cannula 2.0 06/22/19 11:54 97.0 98 22 125/77 (93) 100 I&O Intake and Output 06/22/19 06/23/19 19:00 07:00 Intake Total 900 ml Balance 900 ml Intake Oral 240 ml IV Total 660 ml # Voids 3 2 Dressing: dry Cardiovascular: RSR Respiratory: clear Abdomen: soft, distended, tenderness, decreased bowel sounds Extremities: no tenderness, no cyanosis, other Laboratory Tests Test 06/23/19 06:15 06/23/19 08:50 Prothrombin Time 14.4 SEC (9.30-11.50) H Prothromb Time International Ratio 1.4 (0.9-1.1) H Sodium Level 135 MMOL/L (136-145) L Potassium Level 5.2 MMOL/L (3.5-5.1) H Chloride Level 103 MMOL/L (98-107) Carbon Dioxide Level 19 MMOL/L (21-32) L Anion Gap 13 mmol/L (5-15) Blood Urea Nitrogen 62 mg/dL (7-18) H Creatinine 1.2 MG/DL (0.55-1.30) Estimat Glomerular Filtration Rate 44.8 mL/min (>60) Glucose Level 85 MG/DL (74-106) Calcium Level 8.1 MG/DL (8.5-10.1) L Total Bilirubin 1.5 MG/DL (0.2-1.0) H Direct Bilirubin 0.7 MG/DL (0.0-0.3) H Aspartate Amino Transf (AST/SGOT) 43 U/L (15-37) H Alanine Aminotransferase (ALT/SGPT) 15 U/L (12-78) Alkaline Phosphatase 109 U/L (46-116) Total Protein 6.6 G/DL (6.4-8.2) Albumin 2.3 G/DL (3.4-5.0) L Globulin 4.3 g/dL Albumin/Globulin Ratio 0.5 (1.0-2.7) L White Blood Count 18.0 K/UL (4.8-10.8) #H Red Blood Count 2.87 M/UL (4.20-5.40) L Hemoglobin 10.7 G/DL (12.0-16.0) L Hematocrit 27.6 % (37.0-47.0) L Mean Corpuscular Volume 96 FL (80-99) Mean Corpuscular Hemoglobin 37.4 PG (27.0-31.0) H Mean Corpuscular Hemoglobin Concent 38.9 G/DL (32.0-36.0) H Red Cell Distribution Width 18.4 % (11.6-14.8) H Platelet Count 125 K/UL (150-450) L Mean Platelet Volume 5.8 FL (6.5-10.1) L Neutrophils (%) (Auto) % (45.0-75.0) Lymphocytes (%) (Auto) % (20.0-45.0) Monocytes (%) (Auto) % (1.0-10.0) Eosinophils (%) (Auto) % (0.0-3.0) Basophils (%) (Auto) % (0.0-2.0) Differential Total Cells Counted 100 Neutrophils % (Manual) 77 % (45-75) H Lymphocytes % (Manual) 8 % (20-45) L Monocytes % (Manual) 13 % (1-10) H Eosinophils % (Manual) 2 % (0-3) Basophils % (Manual) 0 % (0-2) Band Neutrophils 0 % (0-8) Platelet Estimate Decreased L Platelet Morphology Normal Hypochromasia 1+ Anisocytosis 2+ Spherocytes 2+ Plan Problems: (1) Abdominal pain Assessment & Plan: [age]-year-old female multiple medical comorbidities presented with abdominal discomfort noted to have abnormal LFTs leukocytosis. CT reviewed liver cirrhotic and there is a mass. Possibly carcinoma likely. HCC. Abdominal exam without peritonitis no acute surgical intervention indicated recommended at this time supportive treatment. Will follow with recommendations thank you tumor markers show afp 155, cea 26, ca19.9 1660 Consider comfort care/hospice can consider biopsy for diagnosis but unfortunately will unlikely help as advanced disease and given differential likely terminal Will follow with recommendations Covid results Thank you The liver is cirrhotic. There is evidence of portal hypertension including splenomegaly and gastric varices. There is a mass in the left lobe, primarily in the lateral segments, but also extending medially. This measures 7.7 x 5 x 4.8 cm in greatest transverse, anteroposterior, and craniocaudal dimensions respectively. This is hypodense/hypoenhancing compared to relatively normal adjacent parenchyma in the portal venous phase. This could reflect early washout of a hepatocellular carcinoma, particularly given cirrhosis. A large metastasis is also possible. Cholelithiasis. 2.2 cm densely calcified stone in the dependent gallbladder. No biliary ductal dilation. Both kidneys demonstrate multiple hypodense lesions, which are too small to characterize. No hydronephrosis. There is no bowel obstruction or perforation. The appendix is not well seen. Leftward pelvic calcification may reflect a subserosal uterine fibroid. No abdominal aortic aneurysm. No acute fracture. IMPRESSION: 7.7 cm left lobe hepatic mass is concerning for hepatocellular carcinoma, particularly given cirrhosis. A large metastasis is also possible. Consider multiphase hepatic protocol MRI. Right renal hypodensities that are too small to characterize. Cholelithiasis. [place] Jun 23, 2019 11:07
[2019-06-23 11:33] LABS: HEMOGLOBIN 10.5 G/DL (12.0-16.0); RED BLOOD COUNT 3.17 M/UL (4.20-5.40)
[2019-06-23 11:34] LABS: HEMATOCRIT 30.8 % (37.0-47.0); MEAN CORPUSCULAR VOLUME 97 FL (80-99)
[2019-06-23 12:00] VITALS: BP 129/75
--- NOTE | 2019-06-23 12:40 | Infectious Diseases Prog Note ---
Assessment/Plan Assessment/Plan IMPRESSION: Hypoxemia and abnormal CT scan of the chest, more likely metastatic disease. Cirrhosis of liver Portal hypertension, Diabetes mellitus, Hypertension, Cholelithiasis, Anemia, suspected liver neoplasm. RECOMMENDATION: Repeat CXR , UA, Urine culture Change Levaquin to Rocephin We will follow COVID-19 test. Prognosis is poor Case was D/W RN Subjective ROS Limited/Unobtainable: Yes Respiratory: Reports: productive cough Neurologic: Reports: confusion, other - on restraint Allergies: Coded Allergies: PENICILLINS (Verified Allergy, Unknown, 06/18/19) Objective Vital Signs Last 24 Hour Vital Signs Date Time Temp Pulse Resp B/P (MAP) Pulse Ox O2 Delivery O2 Flow Rate FiO2 06/23/19 12:00 Nasal Cannula 2.0 06/23/19 12:00 97.8 102 20 129/75 (93) 98 06/23/19 08:00 Nasal Cannula 2.0 06/23/19 08:00 98.0 104 20 133/72 (92) 98 06/23/19 06:00 101 114/72 06/23/19 04:10 Nasal Cannula 2.0 06/23/19 04:00 97.0 106 20 114/72 (86) 100 06/23/19 04:00 101 06/23/19 00:53 97.9 06/23/19 00:00 Nasal Cannula 2.0 06/23/19 00:00 97.0 109 20 122/66 (84) 100 06/23/19 00:00 103 06/22/19 22:00 105 110/75 06/22/19 20:00 Nasal Cannula 2.0 06/22/19 20:00 97.9 104 22 132/75 (94) 100 06/22/19 20:00 103 06/22/19 16:00 Nasal Cannula 2.0 06/22/19 15:54 103 06/22/19 15:51 97.8 105 22 107/73 (84) 100 06/22/19 13:08 100 110/61 Height (Feet): 5 Height (Inches): 4.00 Weight (Pounds): 136 HEENT: mucous membranes moist Respiratory/Chest: lungs clear Cardiovascular: tachycardia Abdomen: distended Extremities: no edema Neurologic/Psychiatric: alert, disoriented Laboratory Tests Test 06/23/19 06:15 06/23/19 08:50 Prothrombin Time 14.4 SEC (9.30-11.50) H Prothromb Time International Ratio 1.4 (0.9-1.1) H Sodium Level 135 MMOL/L (136-145) L Potassium Level 5.2 MMOL/L (3.5-5.1) H Chloride Level 103 MMOL/L (98-107) Carbon Dioxide Level 19 MMOL/L (21-32) L Anion Gap 13 mmol/L (5-15) Blood Urea Nitrogen 62 mg/dL (7-18) H Creatinine 1.2 MG/DL (0.55-1.30) Estimat Glomerular Filtration Rate 44.8 mL/min (>60) Glucose Level 85 MG/DL (74-106) Calcium Level 8.1 MG/DL (8.5-10.1) L Total Bilirubin 1.5 MG/DL (0.2-1.0) H Direct Bilirubin 0.7 MG/DL (0.0-0.3) H Aspartate Amino Transf (AST/SGOT) 43 U/L (15-37) H Alanine Aminotransferase (ALT/SGPT) 15 U/L (12-78) Alkaline Phosphatase 109 U/L (46-116) Total Protein 6.6 G/DL (6.4-8.2) Albumin 2.3 G/DL (3.4-5.0) L Globulin 4.3 g/dL Albumin/Globulin Ratio 0.5 (1.0-2.7) L White Blood Count 18.0 K/UL (4.8-10.8) #H Red Blood Count 3.17 M/UL (4.20-5.40) L Hemoglobin 10.5 G/DL (12.0-16.0) L Hematocrit 30.8 % (37.0-47.0) L Mean Corpuscular Volume 97 FL (80-99) Mean Corpuscular Hemoglobin 33.3 PG (27.0-31.0) H Mean Corpuscular Hemoglobin Concent 34.2 G/DL (32.0-36.0) Red Cell Distribution Width 18.4 % (11.6-14.8) H Platelet Count 125 K/UL (150-450) L Mean Platelet Volume 5.8 FL (6.5-10.1) L Neutrophils (%) (Auto) % (45.0-75.0) Lymphocytes (%) (Auto) % (20.0-45.0) Monocytes (%) (Auto) % (1.0-10.0) Eosinophils (%) (Auto) % (0.0-3.0) Basophils (%) (Auto) % (0.0-2.0) Differential Total Cells Counted 100 Neutrophils % (Manual) 77 % (45-75) H Lymphocytes % (Manual) 8 % (20-45) L Monocytes % (Manual) 13 % (1-10) H Eosinophils % (Manual) 2 % (0-3) Basophils % (Manual) 0 % (0-2) Band Neutrophils 0 % (0-8) Platelet Estimate Decreased L Platelet Morphology Normal Hypochromasia 1+ Anisocytosis 2+ Spherocytes 2+ Current Medications Medications (Trade) Dose Ordered Sig/[place]alia Route PRN Reason Start Time Stop Time Status Last Admin Dose Admin Acetaminophen (Tylenol) 500 mg Q6H PRN ORAL Mild Pain/Temp > 100.5 06/18/19 20:15 07/18/19 20:14 06/18/19 21:51 Dextrose (Dextrose 50%) 25 ml Q30M PRN IV Hypoglycemia 06/19/19 09:45 09/17/19 09:44 Dextrose (Dextrose 50%) 50 ml Q30M PRN IV Hypoglycemia 06/19/19 09:45 09/17/19 09:44 Guaifenesin/ Codeine Phosphate (Robitussin with codeine) 5 ml Q6H PRN ORAL For Cough 06/19/19 10:00 07/19/19 09:59 06/23/19 00:20 Heparin Sodium (Porcine) (Heparin 5000 units/ml) 5,000 units EVERY 12 HOURS SUBQ 06/22/19 21:00 08/06/19 20:59 Hydromorphone HCl (Dilaudid) 0.25 mg Q3H PRN IVP severe pain 06/20/19 13:00 06/26/19 18:59 06/23/19 11:34 Insulin Aspart (NovoLOG) BEFORE MEALS AND HS SUBQ 06/19/19 11:30 09/17/19 11:29 06/19/19 20:18 Levofloxacin (Levaquin) 750 mg Q48H ORAL 06/23/19 21:00 06/30/19 20:59 Lorazepam (Ativan) 1 mg Q6H PRN ORAL For Anxiety 06/18/19 23:30 06/25/19 23:29 06/23/19 09:03 Megestrol Acetate (Megace) 400 mg DAILY ORAL 06/23/19 09:00 09/21/19 08:59 06/23/19 09:02 Naloxone HCl (Narcan) 0.2 mg Q2M PRN IVP respiratory depression 06/20/19 12:00 09/18/19 11:59 Olanzapine (ZyPREXA) 5 mg BID ORAL 06/22/19 15:23 08/06/19 15:22 06/23/19 09:02 Pantoprazole (Protonix) 40 mg DAILY IVP 06/23/19 09:00 07/23/19 08:59 06/23/19 09:02 Propranolol HCl (Inderal) 12.5 mg Q8HR ORAL 06/23/19 14:00 07/21/19 13:59 Sodium Chloride 1,000 ml @ 55 mls/hr [id number] IV 06/21/19 11:00 07/21/19 10:59 06/22/19 23:13 Manuel Kemp MD Jun 23, 2019 12:40
[2019-06-23] MEDS: cefTRIAXone 1 GM in D5W 55 ML IVPB SCH (14:16)
--- NOTE | 2019-06-23 14:20 | NUR ---
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 98.0 HR 104 RR 20 B/P 129/75 2L NC WBC 18.0 NA 135 BUN 62 IS: CEFTRIAXONE IV PROTONIX IV HEPARIN SUBC IVFNS @ 50ML/HR STEP DOWN STATUS
--- NOTE | 2019-06-23 14:53 | NUR ---
*-* INSURANCE *-*. UPDATED AVAILABLE CLINICALS HAVE BEEN FAXED TO: [facility]#[phone] FAX#[phone] REVIEWS/CLINICALS
[2019-06-23 15:05] LABS: APPEARANCE,URINE CLEAR; BILIRUBIN, URINE 2+ (NEGATIVE); COLOR,URINE BROWN; GLUCOSE, URINE (UA) NEGATIVE (NEGATIVE); KETONES,URINE NEGATIVE (NEGATIVE); LEUKOCYTE ESTERASE ,URINE 1+ (NEGATIVE); NITRITE,URINE NEGATIVE (NEGATIVE); PH,URINE 5 (4.5-8.0); PROTEIN,URINE NEGATIVE (NEGATIVE); UROBILINOGEN,URINE 4 MG/DL (0.0-1.0)
--- NOTE | 2019-06-23 15:39 | NUR ---
NURSE NOTES: cxr taken
[2019-06-23 16:00] VITALS: BP 140/79
--- NOTE | 2019-06-23 16:10 | NUR ---
NURSE NOTES: Urine is clear, pink/yellow color. Per Dr. Lazaro, continue irrigation at slow rate until he orders it to stop. He also says pt can have dinner. Addendum: 06/23/19 at 1612 by Andreea Castro RN INCORRECT patient
--- NOTE | 2019-06-23 16:36 | Diagnostic Imaging Report ---
Indication: Shortness of breath Technique: One view of the chest Comparison: 06/18/2019 Findings: Suboptimal inspiration, more so than on the prior exam, resultant crowding of bronchovascular markings. There may be slight interstitial prominence, but this is more likely artifactual due to the hypoventilation. The left hemidiaphragm is slightly obscured, as previously, and there may be patchy consolidation in the left retrocardiac region. Impression: Limited exam, as described, due to low lung volumes Equivocal persistent patchy parenchymal consolidation at the left lung base, could represent focal pneumonia if real
[2019-06-23 20:00] VITALS: BP 134/74
[2019-06-23] MEDS ORDERED: Levofloxacin 750mg tab ORAL SCH (21:00)
--- NOTE | 2019-06-23 22:03 | General Progress Note ---
Assessment/Plan Problem List: (1) Dehydration ICD Codes: E86.0 - Dehydration SNOMED: 18816094 (2) Hypoxia ICD Codes: R09.02 - Hypoxemia SNOMED: 219381787 (3) Abdominal pain ICD Codes: R10.9 - Unspecified abdominal pain SNOMED: 29578295 Qualifiers: Qualified Codes: R10.9 - Unspecified abdominal pain (4) Pneumonia ICD Codes: J18.9 - Pneumonia, unspecified organism SNOMED: 519806476 Qualifiers: Qualified Codes: J18.9 - Pneumonia, unspecified organism (5) HCC (hepatocellular carcinoma) ICD Codes: C22.0 - Liver cell carcinoma SNOMED: 732312210 Status: progressing Assessment/Plan: pna no wheezing resp insuff pending viral testing afebrile mets cancer HCC poor prognosis Subjective ROS Limited/Unobtainable: Yes Allergies: Coded Allergies: PENICILLINS (Verified Allergy, Unknown, 06/18/19) Objective Last 24 Hour Vital Signs Date Time Temp Pulse Resp B/P (MAP) Pulse Ox O2 Delivery O2 Flow Rate FiO2 06/23/19 20:00 98.0 105 20 134/74 (94) 99 06/23/19 20:00 Nasal Cannula 2.0 06/23/19 20:00 101 06/23/19 16:00 Nasal Cannula 2.0 06/23/19 16:00 97.2 99 20 140/79 (99) 99 06/23/19 16:00 95 06/23/19 14:15 101 135/71 06/23/19 12:00 Nasal Cannula 2.0 06/23/19 12:00 97.8 102 20 129/75 (93) 98 06/23/19 11:38 102 06/23/19 08:00 Nasal Cannula 2.0 06/23/19 08:00 98.0 104 20 133/72 (92) 98 06/23/19 07:26 96 06/23/19 06:00 101 114/72 06/23/19 04:10 Nasal Cannula 2.0 06/23/19 04:00 97.0 106 20 114/72 (86) 100 06/23/19 04:00 101 06/23/19 00:53 97.9 06/23/19 00:00 Nasal Cannula 2.0 06/23/19 00:00 97.0 109 20 122/66 (84) 100 06/23/19 00:00 103 Intake and Output 06/22/19 06/23/19 19:00 07:00 Intake Total 900 ml Balance 900 ml Intake Oral 240 ml IV Total 660 ml # Voids 3 2 Laboratory Tests 06/23/19 06:15: Prothrombin Time 14.4H, Prothromb Time International Ratio 1.4H, Sodium Level 135L, Potassium Level 5.2H, Chloride Level 103, Carbon Dioxide Level 19L, Anion Gap 13, Blood Urea Nitrogen 62H, Creatinine 1.2, Estimat Glomerular Filtration Rate 44.8, Glucose Level 85, Calcium Level 8.1L, Total Bilirubin 1.5H, Direct Bilirubin 0.7H, Aspartate Amino Transf (AST/SGOT) 43H, Alanine Aminotransferase (ALT/SGPT) 15, Alkaline Phosphatase 109, Total Protein 6.6, Albumin 2.3L, Globulin 4.3, Albumin/Globulin Ratio 0.5L 06/23/19 08:50: White Blood Count 18.0#H, Red Blood Count 3.17L, Hemoglobin 10.5L, Hematocrit 30.8L, Mean Corpuscular Volume 97, Mean Corpuscular Hemoglobin 33.3H, Mean Corpuscular Hemoglobin Concent 34.2, Red Cell Distribution Width 18.4H, Platelet Count 125L, Mean Platelet Volume 5.8L, Neutrophils (%) (Auto) , Lymphocytes (%) (Auto) , Monocytes (%) (Auto) , Eosinophils (%) (Auto) , Basophils (%) (Auto) , Differential Total Cells Counted 100, Neutrophils % ( Manual) 77H, Lymphocytes % (Manual) 8L, Monocytes % (Manual) 13H, Eosinophils % (Manual) 2, Basophils % (Manual) 0, Band Neutrophils 0, Platelet Estimate DecreasedL, Platelet Morphology Normal, Hypochromasia 1+, Anisocytosis 2+, Spherocytes 2+ 06/23/19 14:30: Urine Color Brown, Urine Appearance Clear, Urine pH 5, Urine Specific [place] 1.025, Urine Protein Negative, Urine Glucose (UA) Negative, Urine Ketones Negative, Urine Blood Negative, Urine Nitrite Negative, Urine Bilirubin 2+H, Urine Ictotest negative, Urine Urobilinogen 4H, Urine Leukocyte Esterase 1+H, Urine RBC 0, Urine WBC 0-2, Urine Squamous Epithelial Cells Occasional, Urine Bacteria Few Height (Feet): 5 Height (Inches): 4.00 Weight (Pounds): 136 Era Acuña MD Jun 23, 2019 22:02
--- NOTE | 2019-06-23 22:51 | NUR ---
NURSE NOTES: Report given to AROLDO Torres. Plan of care endorsed. Pt in stable condition.
--- NOTE | 2019-06-23 23:01 | NUR ---
NURSE NOTES: Received patient and report from AROLDO Doran. Patient is observed resting in bed and remains alert and oriented x1-2. Pt noted to be crying, screaming and complains of anxiety, will administer PRN Ativan as prescribed. No pain noted upon assessment. Pt is on 2L NC with no s/sx of acute distress. Pt noted to be off tele monitor; placed pt back on tele monitor current HR of 101 noted, no s/sx of acute distress. R AC 22g IV catheter noted to be occluded, will place new IV catheter. Diagnostics reviewed. Pt immediately provided with a bed bath and linen change. Pt remains resting in bed; Bed remains in the lowest position with the safety wheels engaged, call light within reach, side rails up x3 and bed alarm activated. Will continue plan of care. Will continue to monitor.
--- NOTE | 2019-06-23 23:11 | Psych Consult Progress Note ---
Psychiatry Progress Note Psychiatry Progress Note Medications Current Medications Medications (Trade) Dose Ordered Sig/Idalia Route PRN Reason Start Time Stop Time Status Last Admin Dose Admin Acetaminophen (Tylenol) 500 mg Q6H PRN ORAL Mild Pain/Temp > 100.5 06/18/19 20:15 07/18/19 20:14 06/18/19 21:51 Ceftriaxone Sodium 1 gm/ Dextrose 55 ml @ 110 mls/hr Q24H IVPB 06/23/19 12:45 06/30/19 12:44 06/23/19 14:16 Dextrose (Dextrose 50%) 25 ml Q30M PRN IV Hypoglycemia 06/19/19 09:45 09/17/19 09:44 Dextrose (Dextrose 50%) 50 ml Q30M PRN IV Hypoglycemia 06/19/19 09:45 09/17/19 09:44 Guaifenesin/ Codeine Phosphate (Robitussin with codeine) 5 ml Q6H PRN ORAL For Cough 06/19/19 10:00 07/19/19 09:59 06/23/19 00:20 Heparin Sodium (Porcine) (Heparin 5000 units/ml) 5,000 units EVERY 12 HOURS SUBQ 06/22/19 21:00 08/06/19 20:59 Hydromorphone HCl (Dilaudid) 0.25 mg Q3H PRN IVP severe pain 06/20/19 13:00 06/26/19 18:59 06/23/19 17:17 Insulin Aspart (NovoLOG) BEFORE MEALS AND HS SUBQ 06/19/19 11:30 09/17/19 11:29 06/19/19 20:18 Lorazepam (Ativan) 1 mg Q6H PRN ORAL For Anxiety 06/18/19 23:30 06/25/19 23:29 06/23/19 09:03 Megestrol Acetate (Megace) 400 mg DAILY ORAL 06/23/19 09:00 09/21/19 08:59 06/23/19 09:02 Naloxone HCl (Narcan) 0.2 mg Q2M PRN IVP respiratory depression 06/20/19 12:00 09/18/19 11:59 Olanzapine (ZyPREXA) 5 mg BID ORAL 06/22/19 15:23 08/06/19 15:22 06/23/19 17:17 Pantoprazole (Protonix) 40 mg DAILY IVP 06/23/19 09:00 07/23/19 08:59 06/23/19 09:02 Propranolol HCl (Inderal) 12.5 mg Q8HR ORAL 06/23/19 14:00 07/21/19 13:59 06/23/19 22:12 Sodium Chloride 1,000 ml @ 55 mls/hr [id number] IV 06/21/19 11:00 07/21/19 10:59 06/23/19 14:16 Neurological/Psychiatric: Reports: anxiety, depressed, emotional problems Allergies: Coded Allergies: PENICILLINS (Verified Allergy, Unknown, 06/18/19) Objective Data Height (Feet): 5 Height (Inches): 4.00 Weight (Pounds): 136 General Appearance: alert, confused, agitated Additional Comments: confused, disoriented. Mood is agitated. Affect is flat. Thought process, disorganized. Thought content, no suicidal or homicidal ideation. Cognition is impaired. Insight and judgment impaired. ASSESSMENT: 1. Dementia. 2. Acute toxic encephalopathy. 3. Major depressive disorder. PLAN: 1. Lorazepam p.r.n. 2. Olanzapine 5 mg p.o. qhs Assessment/Plan Status: progressing Per Holden MD Jun 23, 2019 23:11
[2019-06-24] VITALS: BP 122/72
--- NOTE | 2019-06-24 00:38 | NUR ---
NURSE NOTES: Attempted to place new IV catheter; attempt unsuccessful due to pt noncompliance and noted to be combative. Will reattempt with vein finder and assistance. PRN Ativan administered as ordered for anxiety. No adverse effects noted. Will continue to monitor.
--- NOTE | 2019-06-24 02:36 | NUR ---
NURSE NOTES: IV catheter placement attempt unsuccessful. Verified by second RN, unable to place new IV catheter. Pt provided with a bed bath, oral care and linen change. Pt noted to be coughing with every sip of water with nectar thick liquids. Will wait and perform bedside swallow eval with honey thick liquids with AM medication. Pt remains resting in bed; Bed remains in the lowest position with the safety wheels engaged, call light within reach, side rails up x3 and bed alarm activated. Will continue plan of care. Will continue to monitor.
[2019-06-24 04:00] VITALS: BP 109/74
--- NOTE | 2019-06-24 04:55 | NUR ---
NURSE NOTES: R FA 22g IV catheter placed bu ICU nurse on 3rd attempt. IV catheter remains asymptomatic, patent and intact. Dressing secured. Will discuss need for PICC line with primary physician if prolonged fluids and abx are anticipated. Will continue to monitor. .
[2019-06-24 05:42] LABS: INR 1.5 (0.9-1.1)
[2019-06-24 05:45] LABS: HEMATOCRIT 21.6 % (37.0-47.0); HEMOGLOBIN 8.4 G/DL (12.0-16.0); MEAN CORPUSCULAR VOLUME 95 FL (80-99); PLATELET COUNT 118 K/UL (150-450); RED BLOOD COUNT 2.29 M/UL (4.20-5.40); RED CELL DISTRIBUTION WIDTH 17.5 % (11.6-14.8); WHITE BLOOD COUNT 14.3 K/UL (4.8-10.8)
[2019-06-24] MEDS: Propranolol 10mg tab ORAL SCH ×3 (06:00→21:34)
--- NOTE | 2019-06-24 06:00 | NUR ---
NURSE NOTES: Pt provided with a bed bath, oral care and linen change. Pt tolerated care well. Pt not tolerating honey thick liquids well; continues to cough. Pt continues resting in bed; bed remains in lowest position with safety wheels engaged, side rails up x3, call light within reach and bed alarm activated.
[2019-06-24 06:01] LABS: ALANINE AMINOTRANSFERASE 12 U/L (12-78); ALBUMIN 2.2 G/DL (3.4-5.0); ALBUMIN/GLOBULIN RATIO 0.5 (1.0-2.7); ALKALINE PHOSPHATASE 102 U/L (46-116); ANION GAP 11 mmol/L (5-15); ASPARTATE AMINO TRANSFERASE 40 U/L (15-37); BILIRUBIN,TOTAL 1.9 MG/DL (0.2-1.0); BLOOD UREA NITROGEN 79 mg/dL (7-18); CALCIUM 7.9 MG/DL (8.5-10.1); CARBON DIOXIDE 20 MMOL/L (21-32); CHLORIDE 102 MMOL/L (98-107); CREATININE 1.6 MG/DL (0.55-1.30); PHOSPHORUS 5.9 MG/DL (2.5-4.9); POTASSIUM 5.4 MMOL/L (3.5-5.1); SODIUM 133 MMOL/L (136-145)
[2019-06-24 06:05] LABS: BILIRUBIN,DIRECT 1.1 MG/DL (0.0-0.3)
[2019-06-24] MEDS: NovoLOG Insulin Flexpen SUBQ SCH ×4 (06:16→21:00)
--- NOTE | 2019-06-24 06:27 | NUR ---
NURSE NOTES: Called to inform primary physician regarding Hgb 7.6 Will await call back. Will continue to monitor.
--- NOTE | 2019-06-24 07:02 | Hematology/Onc Progress Note ---
Assessment/Plan Assessment/Plan Assessment and Recs # 7.7 cm left lobe hepatic mass is concerning for hepatocellular carcinoma, particularly given cirrhosis. A large metastasis is also possible. Consider multiphase hepatic protocol MRI. --> also imaging revealed Right renal hypodensities that are too small to characterize. --> seen by gi and surg --> tumor markers show afp 155, cea 26, ca19.9 1660 --> if afp >200, likely hcc, may still need mri --> High recommend to get a tissue diagnosis to confirm diagnosis --> agree with gi is likely cholangio v hcc v pancreatic with mets # Pancytopenia -- multiple etiologies and in this case is related to cirrjosis --> peripheral smear has been ordered and does not show significant abnormalities --> Medications have been reviewed --> Continue to monitor for improvement, trend cbc --> Hep panel and HIV NEGATIVE --> US abd ordered to r/o cirrhosis and hepatosplenomegaly --> DOES SHOW SPLENOMEGALY AND CIRRHOSIS++ --> reverse isolation if ANC is <2000 --> Give neupogen if ANC <1000 --> Transfuse if hgb <7, with 1 unit prbc # FTT may need nutrition support --> when off iso may need peg # Coagulopathy - Cirrhosis, ? etiology --> likely will need ffp and vit k if bleeds --> likely to be a chronic issue with cirrhosis # Abd distention, likely ascites --> also r/o COVID --> isolation # Dvt ppx heparin sq The timing of this note does not necessarily reflect the time of the patient was seen. Greatly appreciate consultation. Subjective Constitutional: Denies: no symptoms, chills, fever, malaise, weakness, other HEENT: Denies: no symptoms, eye pain, blurred vision, tearing, double vision, ear pain, ear discharge, nose pain, nose congestion, throat pain, throat swelling, mouth pain, mouth swelling, other Cardiovascular: Denies: no symptoms, chest pain, edema, irregular heart rate, lightheadedness, palpitations, syncope, other Respiratory: Denies: no symptoms, cough, shortness of breath, SOB with excertion, SOB at rest, sputum, wheezing, other Gastrointestinal/Abdominal: Denies: no symptoms, abdomen distended, abdominal pain, black stools, tarry stools, blood in stool, constipated, diarrhea, difficulty swallowing, nausea, poor appetite, poor fluid intake, rectal bleeding , vomiting, other Genitourinary: Denies: no symptoms, burning, discharge, frequency, flank pain, hematuria, incontinence, pain, urgency, other Neurologic/Psychiatric: Denies: no symptoms, anxiety, depressed, emotional problems, headache, numbness, paresthesia, pre-existing deficit, seizure, tingling, tremors, weakness, other Endocrine: Denies: no symptoms, excessive sweating, flushing, intolerance to cold, intolerance to heat, increased hunger, increased thirst, increased urine, unexplained weight gain, unexplained weight loss, other Allergies: Coded Allergies: PENICILLINS (Verified Allergy, Unknown, 06/18/19) Subjective 06/20 no events, no bleeding, tumor markers still pending, imaging noted 06/21 still somewhat confused this am, trying to crawl out of bed, no bleeding or chills 06/22 seen by gi for peg when off iso, no bleeding, plt 118k 06/23 no events, no bleeding, labs noted, cbc reviewed, no night sweats, uncomfortable still Objective Objective Current Medications Medications (Trade) Dose Ordered Sig/[place] Route PRN Reason Start Time Stop Time Status Last Admin Dose Admin Acetaminophen (Tylenol) 500 mg Q6H PRN ORAL Mild Pain/Temp > 100.5 06/18/19 20:15 07/18/19 20:14 06/18/19 21:51 Ceftriaxone Sodium 1 gm/ Dextrose 55 ml @ 110 mls/hr Q24H IVPB 06/23/19 12:45 06/30/19 12:44 06/23/19 14:16 Dextrose (Dextrose 50%) 25 ml Q30M PRN IV Hypoglycemia 06/19/19 09:45 09/17/19 09:44 Dextrose (Dextrose 50%) 50 ml Q30M PRN IV Hypoglycemia 06/19/19 09:45 09/17/19 09:44 Guaifenesin/ Codeine Phosphate (Robitussin with codeine) 5 ml Q6H PRN ORAL For Cough 06/19/19 10:00 07/19/19 09:59 06/23/19 00:20 Heparin Sodium (Porcine) (Heparin 5000 units/ml) 5,000 units EVERY 12 HOURS SUBQ 06/22/19 21:00 08/06/19 20:59 Hydromorphone HCl (Dilaudid) 0.25 mg Q3H PRN IVP severe pain 06/20/19 13:00 06/26/19 18:59 06/23/19 17:17 Insulin Aspart (NovoLOG) BEFORE MEALS AND HS SUBQ 06/19/19 11:30 09/17/19 11:29 06/19/19 20:18 Lorazepam (Ativan) 1 mg Q6H PRN ORAL For Anxiety 06/18/19 23:30 06/25/19 23:29 06/23/19 23:43 Megestrol Acetate (Megace) 400 mg DAILY ORAL 06/23/19 09:00 09/21/19 08:59 06/23/19 09:02 Naloxone HCl (Narcan) 0.2 mg Q2M PRN IVP respiratory depression 06/20/19 12:00 09/18/19 11:59 Olanzapine (ZyPREXA) 5 mg BID ORAL 06/22/19 15:23 08/06/19 15:22 06/23/19 17:17 Pantoprazole (Protonix) 40 mg DAILY IVP 06/23/19 09:00 07/23/19 08:59 06/23/19 09:02 Propranolol HCl (Inderal) 12.5 mg Q8HR ORAL 06/23/19 14:00 07/21/19 13:59 06/23/19 22:12 Sodium Chloride 1,000 ml @ 55 mls/hr [id number] IV 06/21/19 11:00 07/21/19 10:59 06/23/19 14:16 Last 24 Hour Vital Signs Date Time Temp Pulse Resp B/P (MAP) Pulse Ox O2 Delivery O2 Flow Rate FiO2 06/24/19 04:00 Nasal Cannula 2.0 06/24/19 04:00 97.9 87 20 109/74 (86) 100 06/24/19 03:34 101 06/24/19 00:00 Nasal Cannula 2.0 06/24/19 00:00 98.1 110 20 122/72 (89) 99 06/23/19 23:30 103 06/23/19 22:12 101 136/76 06/23/19 20:00 98.0 105 20 134/74 (94) 99 4/1/20 20:00 Nasal Cannula 2.0 06/23/19 20:00 101 06/23/19 16:00 Nasal Cannula 2.0 06/23/19 16:00 97.2 99 20 140/79 (99) 99 06/23/19 16:00 95 06/23/19 14:15 101 135/71 06/23/19 12:00 Nasal Cannula 2.0 06/23/19 12:00 97.8 102 20 129/75 (93) 98 06/23/19 11:38 102 06/23/19 08:00 Nasal Cannula 2.0 06/23/19 08:00 98.0 104 20 133/72 (92) 98 06/23/19 07:26 96 06/23/19 06:00 101 114/72 06/23/19 04:10 Nasal Cannula 2.0 06/23/19 04:00 97.0 106 20 114/72 (86) 100 06/23/19 04:00 101 06/23/19 00:53 97.9 06/23/19 00:00 Nasal Cannula 2.0 06/23/19 00:00 97.0 109 20 122/66 (84) 100 06/23/19 00:00 103 06/22/19 22:00 105 110/75 06/22/19 20:00 Nasal Cannula 2.0 06/22/19 20:00 97.9 104 22 132/75 (94) 100 06/22/19 20:00 103 06/22/19 16:00 Nasal Cannula 2.0 06/22/19 15:54 103 06/22/19 15:51 97.8 105 22 107/73 (84) 100 06/22/19 13:08 100 110/61 06/22/19 12:00 99 06/22/19 12:00 Nasal Cannula 2.0 06/22/19 11:54 97.0 98 22 125/77 (93) 100 06/22/19 08:00 97.5 116 22 118/79 (92) 100 06/22/19 07:56 99 06/22/19 07:47 Nasal Cannula 2.0 Intake and Output 06/23/19 06/24/19 19:00 07:00 Intake Total 220 ml Balance 220 ml IV Total 220 ml # Voids 2 Labs Test 06/22/19 06:00 06/23/19 06:15 06/23/19 08:50 06/23/19 14:30 White Blood Count 11.5 K/UL (4.8-10.8) 18.0 K/UL (4.8-10.8) Red Blood Count 2.48 M/UL (4.20-5.40) 3.17 M/UL (4.20-5.40) Hemoglobin 10.1 G/DL (12.0-16.0) 10.5 G/DL (12.0-16.0) Hematocrit 24.0 % (37.0-47.0) 30.8 % (37.0-47.0) Mean Corpuscular Volume 97 FL (80-99) 97 FL (80-99) Mean Corpuscular Hemoglobin 40.7 PG (27.0-31.0) 33.3 PG (27.0-31.0) Mean Corpuscular Hemoglobin Concent 42.0 G/DL (32.0-36.0) 34.2 G/DL (32.0-36.0) Red Cell Distribution Width 17.9 % (11.6-14.8) 18.4 % (11.6-14.8) Platelet Count 118 K/UL (150-450) 125 K/UL (150-450) Mean Platelet Volume 6.2 FL (6.5-10.1) 5.8 FL (6.5-10.1) Neutrophils (%) (Auto) 75.0 % (45.0-75.0) % (45.0-75.0) Lymphocytes (%) (Auto) 7.5 % (20.0-45.0) % (20.0-45.0) Monocytes (%) (Auto) 13.1 % (1.0-10.0) % (1.0-10.0) Eosinophils (%) (Auto) 3.1 % (0.0-3.0) % (0.0-3.0) Basophils (%) (Auto) 1.3 % (0.0-2.0) % (0.0-2.0) Prothrombin Time 16.0 SEC (9.30-11.50) 14.4 SEC (9.30-11.50) Prothromb Time International Ratio 1.5 (0.9-1.1) 1.4 (0.9-1.1) Sodium Level 135 MMOL/L (136-145) 135 MMOL/L (136-145) Potassium Level 5.0 MMOL/L (3.5-5.1) 5.2 MMOL/L (3.5-5.1) Chloride Level 103 MMOL/L (98-107) 103 MMOL/L (98-107) Carbon Dioxide Level 22 MMOL/L (21-32) 19 MMOL/L (21-32) Anion Gap 10 mmol/L (5-15) 13 mmol/L (5-15) Blood Urea Nitrogen 62 mg/dL (7-18) 62 mg/dL (7-18) Creatinine 1.2 MG/DL (0.55-1.30) 1.2 MG/DL (0.55-1.30) Estimat Glomerular Filtration Rate 44.8 mL/min (>60) 44.8 mL/min (>60) Glucose Level 94 MG/DL (74-106) 85 MG/DL (74-106) Calcium Level 7.7 MG/DL (8.5-10.1) 8.1 MG/DL (8.5-10.1) Total Bilirubin 1.7 MG/DL (0.2-1.0) 1.5 MG/DL (0.2-1.0) Direct Bilirubin 0.8 MG/DL (0.0-0.3) 0.7 MG/DL (0.0-0.3) Aspartate Amino Transf (AST/SGOT) 34 U/L (15-37) 43 U/L (15-37) Alanine Aminotransferase (ALT/SGPT) 9 U/L (12-78) 15 U/L (12-78) Alkaline Phosphatase 112 U/L (46-116) 109 U/L (46-116) Ammonia 34 umol/L (11-32) Total Protein 6.5 G/DL (6.4-8.2) 6.6 G/DL (6.4-8.2) Albumin 2.2 G/DL (3.4-5.0) 2.3 G/DL (3.4-5.0) Globulin 4.3 g/dL 4.3 g/dL Albumin/Globulin Ratio 0.5 (1.0-2.7) 0.5 (1.0-2.7) Differential Total Cells Counted 100 Neutrophils % (Manual) 77 % (45-75) Lymphocytes % (Manual) 8 % (20-45) Monocytes % (Manual) 13 % (1-10) Eosinophils % (Manual) 2 % (0-3) Basophils % (Manual) 0 % (0-2) Band Neutrophils 0 % (0-8) Platelet Estimate Decreased Platelet Morphology Normal Hypochromasia 1+ Anisocytosis 2+ Spherocytes 2+ Urine Color Brown Urine Appearance Clear Urine pH 5 (4.5-8.0) Urine Specific [place] 1.025 (1.005-1.035) Urine Protein Negative (NEGATIVE) Urine Glucose (UA) Negative (NEGATIVE) Urine Ketones Negative (NEGATIVE) Urine Blood Negative (NEGATIVE) Urine Nitrite Negative (NEGATIVE) Urine Bilirubin 2+ (NEGATIVE) Urine Ictotest negative (NEGATIVE) Urine Urobilinogen 4 MG/DL (0.0-1.0) Urine Leukocyte Esterase 1+ (NEGATIVE) Urine RBC 0 /HPF (0 - 2) Urine WBC 0-2 /HPF (0 - 2) Urine Squamous Epithelial Cells Occasional /LPF Urine Bacteria Few /HPF (NONE) Test 06/24/19 04:00 White Blood Count 14.3 K/UL (4.8-10.8) Red Blood Count 2.29 M/UL (4.20-5.40) Hemoglobin 8.4 G/DL (12.0-16.0) Hematocrit 21.6 % (37.0-47.0) Mean Corpuscular Volume 95 FL (80-99) Mean Corpuscular Hemoglobin 36.6 PG (27.0-31.0) Mean Corpuscular Hemoglobin Concent 38.7 G/DL (32.0-36.0) Red Cell Distribution Width 17.5 % (11.6-14.8) Platelet Count 118 K/UL (150-450) Mean Platelet Volume 5.7 FL (6.5-10.1) Neutrophils (%) (Auto) % (45.0-75.0) Lymphocytes (%) (Auto) % (20.0-45.0) Monocytes (%) (Auto) % (1.0-10.0) Eosinophils (%) (Auto) % (0.0-3.0) Basophils (%) (Auto) % (0.0-2.0) Prothrombin Time 15.4 SEC (9.30-11.50) Prothromb Time International Ratio 1.5 (0.9-1.1) Sodium Level 133 MMOL/L (136-145) Potassium Level 5.4 MMOL/L (3.5-5.1) Chloride Level 102 MMOL/L (98-107) Carbon Dioxide Level 20 MMOL/L (21-32) Anion Gap 11 mmol/L (5-15) Blood Urea Nitrogen 79 mg/dL (7-18) Creatinine 1.6 MG/DL (0.55-1.30) Estimat Glomerular Filtration Rate 32.1 mL/min (>60) Glucose Level 117 MG/DL (74-106) Calcium Level 7.9 MG/DL (8.5-10.1) Phosphorus Level 5.9 MG/DL (2.5-4.9) Magnesium Level 3.1 MG/DL (1.8-2.4) Total Bilirubin 1.9 MG/DL (0.2-1.0) Direct Bilirubin 1.1 MG/DL (0.0-0.3) Aspartate Amino Transf (AST/SGOT) 40 U/L (15-37) Alanine Aminotransferase (ALT/SGPT) 12 U/L (12-78) Alkaline Phosphatase 102 U/L (46-116) Total Protein 6.4 G/DL (6.4-8.2) Albumin 2.2 G/DL (3.4-5.0) Globulin 4.2 g/dL Albumin/Globulin Ratio 0.5 (1.0-2.7) Height (Feet): 5 Height (Inches): 4.00 Weight (Pounds): 136 Objective Physical Exam: Vitals: reviewed General: NAD HEENT: nc, at Neck: supple Chest: clear breath sounds bilaterally Cardiovascular: RRR, no s3, s4 Abdomen: soft, nontender, nd Extremities: no cce, normal range of motion Neuro: alert and oriented Cristobal Staples MD Jun 24, 2019 07:02
--- NOTE | 2019-06-24 07:10 | NUR ---
HAND-OFF: Report given to AROLDO Connell. Endorsed plan of care.
[2019-06-24 08:00] VITALS: BP 101/71
[2019-06-24] MEDS: Heparin 5000 units/ml inj SUBQ SCH ×2 (09:00→21:00)
--- NOTE | 2019-06-24 09:00 | NUR ---
NURSE NOTES: Heparin held due to low platelet count
[2019-06-24] MEDS: D5NS 1,000 ML IV SCH (09:35)
[2019-06-24] MEDS: Megace 400mg/10ml Susp ORAL SCH (09:35)
[2019-06-24] MEDS: Pantoprazole Inj IVP SCH ×2 (09:38→21:01)
--- NOTE | 2019-06-24 10:16 | Infectious Diseases Prog Note ---
Assessment/Plan Assessment/Plan IMPRESSION: Hypoxemia and abnormal CT scan of the chest, more likely metastatic disease. Cirrhosis of liver Portal hypertension, Diabetes mellitus, Hypertension, Cholelithiasis, Anemia, suspected liver neoplasm. RECOMMENDATION: Continue Rocephin We will follow repeated COVID-19 test. Prognosis is poor Subjective ROS Limited/Unobtainable: Yes Neurologic: Reports: confusion, other - on restraint Allergies: Coded Allergies: PENICILLINS (Verified Allergy, Unknown, 06/18/19) Objective Vital Signs Last 24 Hour Vital Signs Date Time Temp Pulse Resp B/P (MAP) Pulse Ox O2 Delivery O2 Flow Rate FiO2 06/24/19 04:00 Nasal Cannula 2.0 06/24/19 04:00 97.9 87 20 109/74 (86) 100 06/24/19 03:34 101 06/24/19 00:00 Nasal Cannula 2.0 06/24/19 00:00 98.1 110 20 122/72 (89) 99 06/23/19 23:30 103 06/23/19 22:12 101 136/76 06/23/19 20:00 98.0 105 20 134/74 (94) 99 06/23/19 20:00 Nasal Cannula 2.0 06/23/19 20:00 101 06/23/19 16:00 Nasal Cannula 2.0 06/23/19 16:00 97.2 99 20 140/79 (99) 99 06/23/19 16:00 95 06/23/19 14:15 101 135/71 06/23/19 12:00 Nasal Cannula 2.0 06/23/19 12:00 97.8 102 20 129/75 (93) 98 06/23/19 11:38 102 Height (Feet): 5 Height (Inches): 4.00 Weight (Pounds): 136 HEENT: mucous membranes moist Respiratory/Chest: lungs clear Cardiovascular: normal rate Abdomen: distended Extremities: no edema Neurologic/Psychiatric: disoriented, other - awake, verbal Laboratory Tests Test 06/23/19 14:30 06/24/19 04:00 Urine Color Brown Urine Appearance Clear Urine pH 5 (4.5-8.0) Urine Specific [place] 1.025 (1.005-1.035) Urine Protein Negative (NEGATIVE) Urine Glucose (UA) Negative (NEGATIVE) Urine Ketones Negative (NEGATIVE) Urine Blood Negative (NEGATIVE) Urine Nitrite Negative (NEGATIVE) Urine Bilirubin 2+ (NEGATIVE) H Urine Ictotest negative (NEGATIVE) Urine Urobilinogen 4 MG/DL (0.0-1.0) H Urine Leukocyte Esterase 1+ (NEGATIVE) H Urine RBC 0 /HPF (0 - 2) Urine WBC 0-2 /HPF (0 - 2) Urine Squamous Epithelial Cells Occasional /LPF Urine Bacteria Few /HPF (NONE) White Blood Count 14.3 K/UL (4.8-10.8) H Red Blood Count 2.29 M/UL (4.20-5.40) L Hemoglobin 8.4 G/DL (12.0-16.0) L Hematocrit 21.6 % (37.0-47.0) L Mean Corpuscular Volume 95 FL (80-99) Mean Corpuscular Hemoglobin 36.6 PG (27.0-31.0) H Mean Corpuscular Hemoglobin Concent 38.7 G/DL (32.0-36.0) H Red Cell Distribution Width 17.5 % (11.6-14.8) H Platelet Count 118 K/UL (150-450) L Mean Platelet Volume 5.7 FL (6.5-10.1) L Neutrophils (%) (Auto) % (45.0-75.0) Lymphocytes (%) (Auto) % (20.0-45.0) Monocytes (%) (Auto) % (1.0-10.0) Eosinophils (%) (Auto) % (0.0-3.0) Basophils (%) (Auto) % (0.0-2.0) Prothrombin Time 15.4 SEC (9.30-11.50) H Prothromb Time International Ratio 1.5 (0.9-1.1) H Sodium Level 133 MMOL/L (136-145) L Potassium Level 5.4 MMOL/L (3.5-5.1) H Chloride Level 102 MMOL/L (98-107) Carbon Dioxide Level 20 MMOL/L (21-32) L Anion Gap 11 mmol/L (5-15) Blood Urea Nitrogen 79 mg/dL (7-18) H Creatinine 1.6 MG/DL (0.55-1.30) H Estimat Glomerular Filtration Rate 32.1 mL/min (>60) Glucose Level 117 MG/DL (74-106) H Calcium Level 7.9 MG/DL (8.5-10.1) L Phosphorus Level 5.9 MG/DL (2.5-4.9) H Magnesium Level 3.1 MG/DL (1.8-2.4) H Total Bilirubin 1.9 MG/DL (0.2-1.0) H Direct Bilirubin 1.1 MG/DL (0.0-0.3) H Aspartate Amino Transf (AST/SGOT) 40 U/L (15-37) H Alanine Aminotransferase (ALT/SGPT) 12 U/L (12-78) Alkaline Phosphatase 102 U/L (46-116) Total Protein 6.4 G/DL (6.4-8.2) Albumin 2.2 G/DL (3.4-5.0) L Globulin 4.2 g/dL Albumin/Globulin Ratio 0.5 (1.0-2.7) L Current Medications Medications (Trade) Dose Ordered Sig/[place]alia Route PRN Reason Start Time Stop Time Status Last Admin Dose Admin Acetaminophen (Tylenol) 500 mg Q6H PRN ORAL Mild Pain/Temp > 100.5 06/18/19 20:15 07/18/19 20:14 06/18/19 21:51 Ceftriaxone Sodium 1 gm/ Dextrose 55 ml @ 110 mls/hr Q24H IVPB 06/23/19 12:45 06/30/19 12:44 06/23/19 14:16 Dextrose (Dextrose 50%) 25 ml Q30M PRN IV Hypoglycemia 06/19/19 09:45 09/17/19 09:44 Dextrose (Dextrose 50%) 50 ml Q30M PRN IV Hypoglycemia 06/19/19 09:45 09/17/19 09:44 Dextrose/Sodium Chloride 1,000 ml @ 50 mls/hr Q20H IV 06/24/19 09:15 07/24/19 09:14 06/24/19 09:35 Guaifenesin/ Codeine Phosphate (Robitussin with codeine) 5 ml Q6H PRN ORAL For Cough 06/19/19 10:00 07/19/19 09:59 06/23/19 00:20 Heparin Sodium (Porcine) (Heparin 5000 units/ml) 5,000 units EVERY 12 HOURS SUBQ 06/22/19 21:00 08/06/19 20:59 Hydromorphone HCl (Dilaudid) 0.25 mg Q3H PRN IVP severe pain 06/20/19 13:00 06/26/19 18:59 06/23/19 17:17 Insulin Aspart (NovoLOG) BEFORE MEALS AND HS SUBQ 06/19/19 11:30 09/17/19 11:29 06/19/19 20:18 Lorazepam (Ativan) 1 mg Q6H PRN ORAL For Anxiety 06/18/19 23:30 06/25/19 23:29 06/23/19 23:43 Megestrol Acetate (Megace) 400 mg DAILY ORAL 06/23/19 09:00 09/21/19 08:59 06/24/19 09:35 Naloxone HCl (Narcan) 0.2 mg Q2M PRN IVP respiratory depression 06/20/19 12:00 09/18/19 11:59 Olanzapine (ZyPREXA) 5 mg BID ORAL 06/22/19 15:23 08/06/19 15:22 06/24/19 09:34 Pantoprazole (Protonix) 40 mg DAILY IVP 06/23/19 09:00 07/23/19 08:59 06/24/19 09:38 Propranolol HCl (Inderal) 12.5 mg Q8HR ORAL 06/23/19 14:00 07/21/19 13:59 06/23/19 22:12 Manuel Kemp MD Jun 24, 2019 10:15
--- NOTE | 2019-06-24 11:24 | General Progress Note ---
Assessment/Plan Assessment/Plan: (1) Intractable pain (2) Metastatic disease possible hepatocellular carcinoma Patient will be continued on Dilaudid with parameters. D/w Dr. Cole and he concurred. Subjective Date patient seen: Jun 24, 2019 Time patient seen: 11:15 - am Allergies: Coded Allergies: PENICILLINS (Verified Allergy, Unknown, 06/18/19) Subjective Constitutional: Reports: weakness Respiratory: Reports: shortness of breath Gastrointestinal/Abdominal: Reports: abdominal pain Neurologic/Psychiatric: Reports: anxiety Subjective Patient is in bed no signs of pain or distress at this time. D/w Nurse who reports that pain is worse with movement of patient. Which pt has been tolerating on the Dilaudid as needed. No new complaints at this time Objective Last 24 Hour Vital Signs Date Time Temp Pulse Resp B/P (MAP) Pulse Ox O2 Delivery O2 Flow Rate FiO2 06/24/19 07:41 94 06/24/19 04:00 Nasal Cannula 2.0 06/24/19 04:00 97.9 87 20 109/74 (86) 100 06/24/19 03:34 101 06/24/19 00:00 Nasal Cannula 2.0 06/24/19 00:00 98.1 110 20 122/72 (89) 99 06/23/19 23:30 103 06/23/19 22:12 101 136/76 06/23/19 20:00 98.0 105 20 134/74 (94) 99 06/23/19 20:00 Nasal Cannula 2.0 06/23/19 20:00 101 06/23/19 16:00 Nasal Cannula 2.0 06/23/19 16:00 97.2 99 20 140/79 (99) 99 06/23/19 16:00 95 06/23/19 14:15 101 135/71 06/23/19 12:00 Nasal Cannula 2.0 06/23/19 12:00 97.8 102 20 129/75 (93) 98 06/23/19 11:38 102 Intake and Output 06/23/19 06/24/19 19:00 07:00 Intake Total 220 ml Balance 220 ml IV Total 220 ml # Voids 2 Laboratory Tests 06/23/19 14:30: Urine Color Brown, Urine Appearance Clear, Urine pH 5, Urine Specific [place] 1.025, Urine Protein Negative, Urine Glucose (UA) Negative, Urine Ketones Negative, Urine Blood Negative, Urine Nitrite Negative, Urine Bilirubin 2+H, Urine Ictotest negative, Urine Urobilinogen 4H, Urine Leukocyte Esterase 1+H, Urine RBC 0, Urine WBC 0-2, Urine Squamous Epithelial Cells Occasional, Urine Bacteria Few 06/24/19 04:00: White Blood Count 14.3H, Red Blood Count 2.29L, Hemoglobin 8.4L, Hematocrit 21.6L, Mean Corpuscular Volume 95, Mean Corpuscular Hemoglobin 36.6H, Mean Corpuscular Hemoglobin Concent 38.7H, Red Cell Distribution Width 17.5H, Platelet Count 118L, Mean Platelet Volume 5.7L, Neutrophils (%) (Auto) , Lymphocytes (%) (Auto) , Monocytes (%) (Auto) , Eosinophils (%) (Auto) , Basophils (%) (Auto) , Prothrombin Time 15.4H, Prothromb Time International Ratio 1.5H, Sodium Level 133L, Potassium Level 5.4H, Chloride Level 102, Carbon Dioxide Level 20L, Anion Gap 11, Blood Urea Nitrogen 79H, Creatinine 1.6H, Estimat Glomerular Filtration Rate 32.1, Glucose Level 117H, Calcium Level 7.9L , Phosphorus Level 5.9H, Magnesium Level 3.1H, Total Bilirubin 1.9H, Direct Bilirubin 1.1H, Aspartate Amino Transf (AST/SGOT) 40H, Alanine Aminotransferase (ALT/SGPT) 12, Alkaline Phosphatase 102, Total Protein 6.4, Albumin 2.2L, Globulin 4.2, Albumin/Globulin Ratio 0.5L Height (Feet): 5 Height (Inches): 4.00 Weight (Pounds): 136 Objective General Appearance: no apparent distress EENT: normal ENT inspection Neck: non-tender, normal alignment Cardiovascular: normal rate, regular rhythm Abdomen: distended Extremities: non-tender Edema: trace edema Neurologic: responsive Skin: warm/dry Joey Gilmore Jun 24, 2019 11:24
--- NOTE | 2019-06-24 11:30 | NUR ---
NURSE NOTES: Inserted dominguez catheter per doctor's order.
--- NOTE | 2019-06-24 11:38 | Pulmonology Progress Note ---
Assessment/Plan Assessment/Plan IMPRESSION: 1. Probable metastatic pulmonary disease. 2. Low suspicion for COVID-19. 3. Hepatocellular mass. Likely carcinoma 4. Schizophrenia. 5. Diabetes mellitus. DISCUSSION: Continue isolation given risk factors for COVID-19 being group home resident, cough, hypoxia. Discussed with Gastroenterology. Await results of repeat laboratory testing. I will follow carefully. Trip Martines M.D. Subjective Interval Events: Initial COVID 19 negative; repeat sent Constitutional: Reports: no symptoms HEENT: Repors: no symptoms Respiratory: Reports: no symptoms Gastrointestinal/Abdominal: Reports: no symptoms Allergies: Coded Allergies: PENICILLINS (Verified Allergy, Unknown, 06/18/19) Objective Last 24 Hour Vital Signs Date Time Temp Pulse Resp B/P (MAP) Pulse Ox O2 Delivery O2 Flow Rate FiO2 06/24/19 08:00 97.0 87 20 101/71 (81) 95 06/24/19 07:41 94 06/24/19 04:00 Nasal Cannula 2.0 06/24/19 04:00 97.9 87 20 109/74 (86) 100 06/24/19 03:34 101 06/24/19 00:00 Nasal Cannula 2.0 06/24/19 00:00 98.1 110 20 122/72 (89) 99 06/23/19 23:30 103 06/23/19 22:12 101 136/76 06/23/19 20:00 98.0 105 20 134/74 (94) 99 06/23/19 20:00 Nasal Cannula 2.0 06/23/19 20:00 101 06/23/19 16:00 Nasal Cannula 2.0 06/23/19 16:00 97.2 99 20 140/79 (99) 99 06/23/19 16:00 95 06/23/19 14:15 101 135/71 06/23/19 12:00 Nasal Cannula 2.0 06/23/19 12:00 97.8 102 20 129/75 (93) 98 Intake and Output 06/23/19 06/24/19 19:00 07:00 Intake Total 220 ml Balance 220 ml IV Total 220 ml # Voids 2 HEENT: normocephalic Respiratory/Chest: chest wall non-tender Cardiovascular: normal peripheral pulses Abdomen: normal bowel sounds Laboratory Tests 06/23/19 14:30: Urine Color Brown, Urine Appearance Clear, Urine pH 5, Urine Specific [place] 1.025, Urine Protein Negative, Urine Glucose (UA) Negative, Urine Ketones Negative, Urine Blood Negative, Urine Nitrite Negative, Urine Bilirubin 2+H, Urine Ictotest negative, Urine Urobilinogen 4H, Urine Leukocyte Esterase 1+H, Urine RBC 0, Urine WBC 0-2, Urine Squamous Epithelial Cells Occasional, Urine Bacteria Few 06/24/19 04:00: White Blood Count 14.3H, Red Blood Count 2.29L, Hemoglobin 8.4L, Hematocrit 21.6L, Mean Corpuscular Volume 95, Mean Corpuscular Hemoglobin 36.6H, Mean Corpuscular Hemoglobin Concent 38.7H, Red Cell Distribution Width 17.5H, Platelet Count 118L, Mean Platelet Volume 5.7L, Neutrophils (%) (Auto) , Lymphocytes (%) (Auto) , Monocytes (%) (Auto) , Eosinophils (%) (Auto) , Basophils (%) (Auto) , Prothrombin Time 15.4H, Prothromb Time International Ratio 1.5H, Sodium Level 133L, Potassium Level 5.4H, Chloride Level 102, Carbon Dioxide Level 20L, Anion Gap 11, Blood Urea Nitrogen 79H, Creatinine 1.6H, Estimat Glomerular Filtration Rate 32.1, Glucose Level 117H, Calcium Level 7.9L , Phosphorus Level 5.9H, Magnesium Level 3.1H, Total Bilirubin 1.9H, Direct Bilirubin 1.1H, Aspartate Amino Transf (AST/SGOT) 40H, Alanine Aminotransferase (ALT/SGPT) 12, Alkaline Phosphatase 102, Total Protein 6.4, Albumin 2.2L, Globulin 4.2, Albumin/Globulin Ratio 0.5L Current Medications Medications (Trade) Dose Ordered Sig/Idalia Route PRN Reason Start Time Stop Time Status Last Admin Dose Admin Acetaminophen (Tylenol) 500 mg Q6H PRN ORAL Mild Pain/Temp > 100.5 06/18/19 20:15 07/18/19 20:14 06/18/19 21:51 Ceftriaxone Sodium 1 gm/ Dextrose 55 ml @ 110 mls/hr Q24H IVPB 06/23/19 12:45 06/30/19 12:44 06/23/19 14:16 Dextrose (Dextrose 50%) 25 ml Q30M PRN IV Hypoglycemia 06/19/19 09:45 09/17/19 09:44 Dextrose (Dextrose 50%) 50 ml Q30M PRN IV Hypoglycemia 06/19/19 09:45 09/17/19 09:44 Dextrose/Sodium Chloride 1,000 ml @ 50 mls/hr Q20H IV 06/24/19 09:15 07/24/19 09:14 06/24/19 09:35 Guaifenesin/ Codeine Phosphate (Robitussin with codeine) 5 ml Q6H PRN ORAL For Cough 06/19/19 10:00 07/19/19 09:59 06/23/19 00:20 Heparin Sodium (Porcine) (Heparin 5000 units/ml) 5,000 units EVERY 12 HOURS SUBQ 06/22/19 21:00 08/06/19 20:59 Hydromorphone HCl (Dilaudid) 0.25 mg Q3H PRN IVP severe pain 06/20/19 13:00 06/26/19 18:59 06/23/19 17:17 Insulin Aspart (NovoLOG) BEFORE MEALS AND HS SUBQ 06/19/19 11:30 09/17/19 11:29 06/19/19 20:18 Lorazepam (Ativan) 1 mg Q6H PRN ORAL For Anxiety 06/18/19 23:30 06/25/19 23:29 06/23/19 23:43 Megestrol Acetate (Megace) 400 mg DAILY ORAL 06/23/19 09:00 09/21/19 08:59 06/24/19 09:35 Naloxone HCl (Narcan) 0.2 mg Q2M PRN IVP respiratory depression 06/20/19 12:00 09/18/19 11:59 Olanzapine (ZyPREXA) 5 mg BID ORAL 06/22/19 15:23 08/06/19 15:22 06/24/19 09:34 Pantoprazole (Protonix) 40 mg DAILY IVP 06/23/19 09:00 07/23/19 08:59 06/24/19 09:38 Propranolol HCl (Inderal) 12.5 mg Q8HR ORAL 06/23/19 14:00 07/21/19 13:59 06/23/19 22:12 Trip Martines MD Jun 24, 2019 11:38
--- NOTE | 2019-06-24 11:44 | General Progress Note ---
Assessment/Plan Assessment/Plan: Assessment/Plan Assessment/Plan: Assessment - Cirrhosis, ? etiology - Large liver mass, suspect CA - poor Px - lung nodules - abd distention, likely ascites - r/o COVID -FTT -Anemia -UTI -DM -gallstones -GV Recommendations - Isolation - await COVID status - Cirrhsis w/u ([facility], [facility], [facility], [facility]) -low dose Propranolol>>>>12.5 tid -Repeat labs -tumor markers reviewed>>>? cholangio CA with liver mets -needs MRI or liver biopsy when off isolation -poor po intake not a good candidate for NG given possible varices plan add low dose megace, heparin, fu po intake possible EGD/ PEG when off isolation off Remeron on ppi Subjective ROS Limited/Unobtainable: No Allergies: Coded Allergies: PENICILLINS (Verified Allergy, Unknown, 06/18/19) Objective Last 24 Hour Vital Signs Date Time Temp Pulse Resp B/P (MAP) Pulse Ox O2 Delivery O2 Flow Rate FiO2 06/24/19 08:00 97.0 87 20 101/71 (81) 95 06/24/19 07:41 94 06/24/19 04:00 Nasal Cannula 2.0 06/24/19 04:00 97.9 87 20 109/74 (86) 100 06/24/19 03:34 101 06/24/19 00:00 Nasal Cannula 2.0 06/24/19 00:00 98.1 110 20 122/72 (89) 99 06/23/19 23:30 103 06/23/19 22:12 101 136/76 06/23/19 20:00 98.0 105 20 134/74 (94) 99 06/23/19 20:00 Nasal Cannula 2.0 06/23/19 20:00 101 06/23/19 16:00 Nasal Cannula 2.0 06/23/19 16:00 97.2 99 20 140/79 (99) 99 06/23/19 16:00 95 06/23/19 14:15 101 135/71 06/23/19 12:00 Nasal Cannula 2.0 06/23/19 12:00 97.8 102 20 129/75 (93) 98 Intake and Output 06/23/19 06/24/19 19:00 07:00 Intake Total 220 ml Balance 220 ml IV Total 220 ml # Voids 2 Laboratory Tests 06/23/19 14:30: Urine Color Brown, Urine Appearance Clear, Urine pH 5, Urine Specific [place] 1.025, Urine Protein Negative, Urine Glucose (UA) Negative, Urine Ketones Negative, Urine Blood Negative, Urine Nitrite Negative, Urine Bilirubin 2+H, Urine Ictotest negative, Urine Urobilinogen 4H, Urine Leukocyte Esterase 1+H, Urine RBC 0, Urine WBC 0-2, Urine Squamous Epithelial Cells Occasional, Urine Bacteria Few 06/24/19 04:00: White Blood Count 14.3H, Red Blood Count 2.29L, Hemoglobin 8.4L, Hematocrit 21.6L, Mean Corpuscular Volume 95, Mean Corpuscular Hemoglobin 36.6H, Mean Corpuscular Hemoglobin Concent 38.7H, Red Cell Distribution Width 17.5H, Platelet Count 118L, Mean Platelet Volume 5.7L, Neutrophils (%) (Auto) , Lymphocytes (%) (Auto) , Monocytes (%) (Auto) , Eosinophils (%) (Auto) , Basophils (%) (Auto) , Prothrombin Time 15.4H, Prothromb Time International Ratio 1.5H, Sodium Level 133L, Potassium Level 5.4H, Chloride Level 102, Carbon Dioxide Level 20L, Anion Gap 11, Blood Urea Nitrogen 79H, Creatinine 1.6H, Estimat Glomerular Filtration Rate 32.1, Glucose Level 117H, Calcium Level 7.9L , Phosphorus Level 5.9H, Magnesium Level 3.1H, Total Bilirubin 1.9H, Direct Bilirubin 1.1H, Aspartate Amino Transf (AST/SGOT) 40H, Alanine Aminotransferase (ALT/SGPT) 12, Alkaline Phosphatase 102, Total Protein 6.4, Albumin 2.2L, Globulin 4.2, Albumin/Globulin Ratio 0.5L Height (Feet): 5 Height (Inches): 4.00 Weight (Pounds): 136 General Appearance: lethargic EENT: normal ENT inspection Neck: supple Cardiovascular: tachycardia Respiratory/Chest: decreased breath sounds Abdomen: normal bowel sounds, non tender, soft Extremities: non-tender Howard Childers MD Jun 24, 2019 11:44
[2019-06-24 12:00] VITALS: BP 115/92
--- NOTE | 2019-06-24 12:06 | NUR ---
CASE MANAGEMENT: REVIEW 06/24/2019 SI: Probable metastatic pulmonary disease. Hepatocellular mass. VS: T 97 HR 89 RR 20 B/P 115/92 SATS 100% ON 2L/NC LABS: WBC 14.3 NA 133 K 5.4 CO2 20 BUN 79 CR 1.6 GLU 117 CA 7.9 PHOS 5.9 MG 3.1 IS:IVF @ 50 ML/HR ZYPREXA PO BID MEGACE PO QD INSULIN ASPART AC/HS CEFTRIAXONE IV Q24H INDERAL PO Q8H SDU
--- NOTE | 2019-06-24 12:17 | NUR ---
INSURANCE REVIEW FAXED TO [facility]#[phone] FAX#[phone] REVIEWS/CLINICALS
--- NOTE | 2019-06-24 12:19 | NUR ---
DISCHARGE PLANNING: NOTE COVID RETESTING D/T INSUFFICIENT QUANTITY
[2019-06-24] MEDS: cefTRIAXone 1 GM in D5W 55 ML IVPB SCH (12:59)
--- NOTE | 2019-06-24 14:04 | Consultation ---
Consult Note Consult Note I was asked to evaluate the patient at the request of Dr. Acuña for rising serum creatinine Patient's records are reviewed Patient examined Consultants notes reviewed Patient initially came to emergency room at [facility] on June 17 Emergency room note: [age]-year-old female history of schizophrenia history of hypertension history of diabetes presents with hypoxia, abdominal pain times a few days no aggravating alleviating factors she endorses crampy abdominal pain no diarrhea no known fevers or chills patient does endorse a cough no production patient presents from a [facility] facility for evaluation for her abdominal pain as well as her hypoxia Coded Allergies: PENICILLINS (Verified Allergy, Unknown, 06/18/19) . Assessment/Plan - LEANDRO , serum creatinine [place] to 1.6, likely multifactorial, due to underlying liver disease, antibiotics, low blood pressure. - Hyperkalemia - Hypoalbuminemia - Cirrhosis, ? etiology - Large liver mass, suspect CA - poor Px - lung nodules - abd distention, likely ascites - r/o COVID -FTT -Anemia -UTI -DM -gallstones -GV Slow saline hydration, Albumin 5% bolus Neal catheter Avoid nephrotoxic's Follow-up with renal parameters Urine studies Per orders Alex Aguilar MD Jun 24, 2019 14:04
[2019-06-24] MEDS ORDERED: Sodium Polystyrene Sulfonate 15gm Powder ORAL SCH (14:15)
--- NOTE | 2019-06-24 14:24 | Surgery Progress Note ---
Surgery Progress Note Subjective Additional Comments ill appearing abd exam stable labs reviewed Objective Last 24 Hour Vital Signs Date Time Temp Pulse Resp B/P (MAP) Pulse Ox O2 Delivery O2 Flow Rate FiO2 06/24/19 12:00 97.0 89 20 115/92 (100) 100 06/24/19 12:00 Nasal Cannula 2.0 06/24/19 11:40 86 06/24/19 08:00 97.0 87 20 101/71 (81) 95 06/24/19 08:00 Nasal Cannula 2.0 06/24/19 07:41 94 06/24/19 04:00 Nasal Cannula 2.0 06/24/19 04:00 97.9 87 20 109/74 (86) 100 06/24/19 03:34 101 06/24/19 00:00 Nasal Cannula 2.0 06/24/19 00:00 98.1 110 20 122/72 (89) 99 06/23/19 23:30 103 06/23/19 22:12 101 136/76 06/23/19 20:00 98.0 105 20 134/74 (94) 99 06/23/19 20:00 Nasal Cannula 2.0 06/23/19 20:00 101 06/23/19 16:00 Nasal Cannula 2.0 06/23/19 16:00 97.2 99 20 140/79 (99) 99 06/23/19 16:00 95 I&O Intake and Output 06/23/19 06/24/19 19:00 07:00 Intake Total 220 ml Balance 220 ml IV Total 220 ml # Voids 2 Cardiovascular: RSR Respiratory: clear Abdomen: distended, tenderness, decreased bowel sounds Extremities: no cyanosis Laboratory Tests Test 06/23/19 14:30 06/24/19 04:00 Urine Color Brown Urine Appearance Clear Urine pH 5 (4.5-8.0) Urine Specific [place] 1.025 (1.005-1.035) Urine Protein Negative (NEGATIVE) Urine Glucose (UA) Negative (NEGATIVE) Urine Ketones Negative (NEGATIVE) Urine Blood Negative (NEGATIVE) Urine Nitrite Negative (NEGATIVE) Urine Bilirubin 2+ (NEGATIVE) H Urine Ictotest negative (NEGATIVE) Urine Urobilinogen 4 MG/DL (0.0-1.0) H Urine Leukocyte Esterase 1+ (NEGATIVE) H Urine RBC 0 /HPF (0 - 2) Urine WBC 0-2 /HPF (0 - 2) Urine Squamous Epithelial Cells Occasional /LPF Urine Bacteria Few /HPF (NONE) White Blood Count 14.3 K/UL (4.8-10.8) H Red Blood Count 2.29 M/UL (4.20-5.40) L Hemoglobin 8.4 G/DL (12.0-16.0) L Hematocrit 21.6 % (37.0-47.0) L Mean Corpuscular Volume 95 FL (80-99) Mean Corpuscular Hemoglobin 36.6 PG (27.0-31.0) H Mean Corpuscular Hemoglobin Concent 38.7 G/DL (32.0-36.0) H Red Cell Distribution Width 17.5 % (11.6-14.8) H Platelet Count 118 K/UL (150-450) L Mean Platelet Volume 5.7 FL (6.5-10.1) L Neutrophils (%) (Auto) % (45.0-75.0) Lymphocytes (%) (Auto) % (20.0-45.0) Monocytes (%) (Auto) % (1.0-10.0) Eosinophils (%) (Auto) % (0.0-3.0) Basophils (%) (Auto) % (0.0-2.0) Prothrombin Time 15.4 SEC (9.30-11.50) H Prothromb Time International Ratio 1.5 (0.9-1.1) H Sodium Level 133 MMOL/L (136-145) L Potassium Level 5.4 MMOL/L (3.5-5.1) H Chloride Level 102 MMOL/L (98-107) Carbon Dioxide Level 20 MMOL/L (21-32) L Anion Gap 11 mmol/L (5-15) Blood Urea Nitrogen 79 mg/dL (7-18) H Creatinine 1.6 MG/DL (0.55-1.30) H Estimat Glomerular Filtration Rate 32.1 mL/min (>60) Glucose Level 117 MG/DL (74-106) H Calcium Level 7.9 MG/DL (8.5-10.1) L Phosphorus Level 5.9 MG/DL (2.5-4.9) H Magnesium Level 3.1 MG/DL (1.8-2.4) H Total Bilirubin 1.9 MG/DL (0.2-1.0) H Direct Bilirubin 1.1 MG/DL (0.0-0.3) H Aspartate Amino Transf (AST/SGOT) 40 U/L (15-37) H Alanine Aminotransferase (ALT/SGPT) 12 U/L (12-78) Alkaline Phosphatase 102 U/L (46-116) Total Protein 6.4 G/DL (6.4-8.2) Albumin 2.2 G/DL (3.4-5.0) L Globulin 4.2 g/dL Albumin/Globulin Ratio 0.5 (1.0-2.7) L Plan Problems: (1) Abdominal pain Assessment & Plan: [age]-year-old female multiple medical comorbidities presented with abdominal discomfort noted to have abnormal LFTs leukocytosis. CT reviewed liver cirrhotic and there is a mass. Possibly carcinoma likely. HCC. Abdominal exam without peritonitis no acute surgical intervention indicated recommended at this time supportive treatment. Will follow with recommendations thank you tumor markers show afp 155, cea 26, ca19.9 1660 Consider comfort care/hospice can consider biopsy for diagnosis but unfortunately will unlikely help as advanced disease and given differential likely terminal Will follow with recommendations Covid results Thank you The liver is cirrhotic. There is evidence of portal hypertension including splenomegaly and gastric varices. There is a mass in the left lobe, primarily in the lateral segments, but also extending medially. This measures 7.7 x 5 x 4.8 cm in greatest transverse, anteroposterior, and craniocaudal dimensions respectively. This is hypodense/hypoenhancing compared to relatively normal adjacent parenchyma in the portal venous phase. This could reflect early washout of a hepatocellular carcinoma, particularly given cirrhosis. A large metastasis is also possible. Cholelithiasis. 2.2 cm densely calcified stone in the dependent gallbladder. No biliary ductal dilation. Both kidneys demonstrate multiple hypodense lesions, which are too small to characterize. No hydronephrosis. There is no bowel obstruction or perforation. The appendix is not well seen. Leftward pelvic calcification may reflect a subserosal uterine fibroid. No abdominal aortic aneurysm. No acute fracture. IMPRESSION: 7.7 cm left lobe hepatic mass is concerning for hepatocellular carcinoma, particularly given cirrhosis. A large metastasis is also possible. Consider multiphase hepatic protocol MRI. Right renal hypodensities that are too small to characterize. Cholelithiasis. [place] Jun 24, 2019 14:23
[2019-06-24 16:00] VITALS: BP 116/57
--- NOTE | 2019-06-24 19:10 | Psych Consult Progress Note ---
Psychiatry Progress Note Psychiatry Progress Note Subjective the pt is the same episodes of agitation disoriented Medications Current Medications Medications (Trade) Dose Ordered Sig/Idalia Route PRN Reason Start Time Stop Time Status Last Admin Dose Admin Acetaminophen (Tylenol) 500 mg Q6H PRN ORAL Mild Pain/Temp > 100.5 06/18/19 20:15 07/18/19 20:14 06/18/19 21:51 Ceftriaxone Sodium 1 gm/ Dextrose 55 ml @ 110 mls/hr Q24H IVPB 06/23/19 12:45 06/30/19 12:44 06/24/19 12:59 Dextrose (Dextrose 50%) 25 ml Q30M PRN IV Hypoglycemia 06/19/19 09:45 09/17/19 09:44 Dextrose (Dextrose 50%) 50 ml Q30M PRN IV Hypoglycemia 06/19/19 09:45 09/17/19 09:44 Dextrose/Sodium Chloride 1,000 ml @ 50 mls/hr Q20H IV 06/24/19 09:15 07/24/19 09:14 06/24/19 09:35 Guaifenesin/ Codeine Phosphate (Robitussin with codeine) 5 ml Q6H PRN ORAL For Cough 06/19/19 10:00 07/19/19 09:59 06/23/19 00:20 Heparin Sodium (Porcine) (Heparin 5000 units/ml) 5,000 units EVERY 12 HOURS SUBQ 06/22/19 21:00 08/06/19 20:59 Hydromorphone HCl (Dilaudid) 0.25 mg Q3H PRN IVP severe pain 06/20/19 13:00 06/26/19 18:59 06/23/19 17:17 Insulin Aspart (NovoLOG) BEFORE MEALS AND HS SUBQ 06/19/19 11:30 09/17/19 11:29 06/19/19 20:18 Lorazepam (Ativan) 1 mg Q6H PRN ORAL For Anxiety 06/18/19 23:30 06/25/19 23:29 06/23/19 23:43 Megestrol Acetate (Megace) 400 mg DAILY ORAL 06/23/19 09:00 09/21/19 08:59 06/24/19 09:35 Naloxone HCl (Narcan) 0.2 mg Q2M PRN IVP respiratory depression 06/20/19 12:00 09/18/19 11:59 Olanzapine (ZyPREXA) 5 mg BID ORAL 06/22/19 15:23 08/06/19 15:22 06/24/19 18:29 Pantoprazole (Protonix) 40 mg Q12HR IVP 06/24/19 21:00 07/23/19 08:59 Propranolol HCl (Inderal) 12.5 mg Q8HR ORAL 06/23/19 14:00 07/21/19 13:59 06/24/19 14:37 Neurological/Psychiatric: Reports: anxiety Allergies: Coded Allergies: PENICILLINS (Verified Allergy, Unknown, 06/18/19) Objective Data Height (Feet): 5 Height (Inches): 4.00 Weight (Pounds): 136 General Appearance: alert, confused, agitated Appearance: no abnormalities noted Behavior Mannerisms: poor eye contact Mental Status Exam - Affect: constricted Mental Status Exam - Mood: anxious, agitated Mental Status Exam - Suicidal: not present Additional Comments: Assessment/Plan [place] I: 1. Dementia. 2. Acute toxic encephalopathy. 3. Major depressive disorder. Assessment/Plan: PLAN: 1. Lorazepam p.r.n. 2. Olanzapine 5 mg p.o. qhs 3. Continue to follow and readjust the medications. Per Holden MD Jun 24, 2019 19:10
--- NOTE | 2019-06-24 19:15 | NUR ---
NURSE NOTES: Received patient and report from AROLDO Connell. Patient is observed resting in bed and noted to be oriented x0-1. Pt noted to be crying, screaming and complains of anxiety, will administer PRN Ativan as prescribed. No pain noted upon assessment. Pt is on 2L NC with no s/sx of acute distress. Pt noted to be SR on tele monitor with a current HR of 100 noted, no s/sx of acute distress. R FA 22g IV catheter noted to be asymptomatic, intact and patent. Diagnostics reviewed. Skin assessment to be performed with first bed bath as patient is now sleeping. Pt remains resting in bed; Bed remains in the lowest position with the safety wheels engaged, call light within reach, side rails up x3 and bed alarm activated. Will continue plan of care. Will continue to monitor.
--- NOTE | 2019-06-24 19:20 | NUR ---
HAND-OFF: Report given to Lucy Heard RN. Pt remains on bilateral soft wrist restraints. Pt agitated, trying to get out of bed and pulling devices. Kept clean and dry
[2019-06-24 20:00] VITALS: BP 106/55
--- NOTE | 2019-06-24 22:22 | General Progress Note ---
Assessment/Plan Problem List: (1) Dehydration ICD Codes: E86.0 - Dehydration SNOMED: 28528389 (2) Hypoxia ICD Codes: R09.02 - Hypoxemia SNOMED: 202118671 (3) Abdominal pain ICD Codes: R10.9 - Unspecified abdominal pain SNOMED: 26063728 Qualifiers: Qualified Codes: R10.9 - Unspecified abdominal pain (4) Pneumonia ICD Codes: J18.9 - Pneumonia, unspecified organism SNOMED: 809620834 Qualifiers: Qualified Codes: J18.9 - Pneumonia, unspecified organism (5) HCC (hepatocellular carcinoma) ICD Codes: C22.0 - Liver cell carcinoma SNOMED: 048625985 Status: progressing Assessment/Plan: pneumonai abx per id no acute changes afebrile mets cancer HCC poor prognosis Subjective ROS Limited/Unobtainable: Yes Allergies: Coded Allergies: PENICILLINS (Verified Allergy, Unknown, 06/18/19) Objective Last 24 Hour Vital Signs Date Time Temp Pulse Resp B/P (MAP) Pulse Ox O2 Delivery O2 Flow Rate FiO2 06/24/19 20:00 98.2 101 20 106/55 (72) 99 06/24/19 20:00 Nasal Cannula 3.0 06/24/19 16:00 97.5 78 20 116/57 (76) 100 06/24/19 16:00 Nasal Cannula 2.0 06/24/19 15:27 100 06/24/19 14:37 106 116/57 06/24/19 12:00 97.0 89 20 115/92 (100) 100 06/24/19 12:00 Nasal Cannula 2.0 06/24/19 11:40 86 06/24/19 08:00 97.0 87 20 101/71 (81) 95 06/24/19 08:00 Nasal Cannula 2.0 06/24/19 07:41 94 06/24/19 04:00 Nasal Cannula 2.0 06/24/19 04:00 97.9 87 20 109/74 (86) 100 06/24/19 03:34 101 06/24/19 00:00 Nasal Cannula 2.0 06/24/19 00:00 98.1 110 20 122/72 (89) 99 06/23/19 23:30 103 Intake and Output 06/23/19 06/24/19 19:00 07:00 Intake Total 275 ml Balance 275 ml IV Total 275 ml # Voids 2 Laboratory Tests 06/24/19 04:00: White Blood Count 14.3H, Red Blood Count 2.29L, Hemoglobin 8.4L, Hematocrit 21.6L, Mean Corpuscular Volume 95, Mean Corpuscular Hemoglobin 36.6H, Mean Corpuscular Hemoglobin Concent 38.7H, Red Cell Distribution Width 17.5H, Platelet Count 118L, Mean Platelet Volume 5.7L, Neutrophils (%) (Auto) , Lymphocytes (%) (Auto) , Monocytes (%) (Auto) , Eosinophils (%) (Auto) , Basophils (%) (Auto) , Prothrombin Time 15.4H, Prothromb Time International Ratio 1.5H, Sodium Level 133L, Potassium Level 5.4H, Chloride Level 102, Carbon Dioxide Level 20L, Anion Gap 11, Blood Urea Nitrogen 79H, Creatinine 1.6H, Estimat Glomerular Filtration Rate 32.1, Glucose Level 117H, Calcium Level 7.9L , Phosphorus Level 5.9H, Magnesium Level 3.1H, Total Bilirubin 1.9H, Direct Bilirubin 1.1H, Aspartate Amino Transf (AST/SGOT) 40H, Alanine Aminotransferase (ALT/SGPT) 12, Alkaline Phosphatase 102, Total Protein 6.4, Albumin 2.2L, Globulin 4.2, Albumin/Globulin Ratio 0.5L 06/24/19 14:15: Urine Random Sodium < 20L Height (Feet): 5 Height (Inches): 4.00 Weight (Pounds): 136 Era Acuña MD Jun 24, 2019 22:22
[2019-06-25] VITALS (10 sets, daily range): BP systolic 90–154; BP diastolic 44–73
[2019-06-25 04:03] LABS: HEMATOCRIT 20.3 % (37.0-47.0); HEMOGLOBIN 7.1 G/DL (12.0-16.0); MEAN CORPUSCULAR VOLUME 96 FL (80-99); PLATELET COUNT 110 K/UL (150-450); RED BLOOD COUNT 2.11 M/UL (4.20-5.40); RED CELL DISTRIBUTION WIDTH 18.5 % (11.6-14.8); WHITE BLOOD COUNT 14.9 K/UL (4.8-10.8)
[2019-06-25] MEDS: D5NS 1,000 ML IV SCH ×2 (04:22→16:00)
[2019-06-25 04:30] LABS: ALANINE AMINOTRANSFERASE 19 U/L (12-78); ALBUMIN 2.7 G/DL (3.4-5.0); ALBUMIN/GLOBULIN RATIO 0.7 (1.0-2.7); ALKALINE PHOSPHATASE 94 U/L (46-116); ANION GAP 14 mmol/L (5-15); ASPARTATE AMINO TRANSFERASE 46 U/L (15-37); BILIRUBIN,TOTAL 2.3 MG/DL (0.2-1.0); BLOOD UREA NITROGEN 87 mg/dL (7-18); CALCIUM 7.8 MG/DL (8.5-10.1); CARBON DIOXIDE 18 MMOL/L (21-32); CHLORIDE 106 MMOL/L (98-107); CREATININE 1.9 MG/DL (0.55-1.30); PHOSPHORUS 4.8 MG/DL (2.5-4.9); POTASSIUM 5.4 MMOL/L (3.5-5.1); SODIUM 138 MMOL/L (136-145)
[2019-06-25 04:34] LABS: BILIRUBIN,DIRECT 1.5 MG/DL (0.0-0.3)
[2019-06-25] MEDS: Propranolol 10mg tab ORAL SCH ×2 (06:00→21:44)
[2019-06-25] MEDS: NovoLOG Insulin Flexpen SUBQ SCH ×4 (06:00→21:00)
--- NOTE | 2019-06-25 06:13 | NUR ---
NURSE NOTES: Hgb result of 7.1 noted. STAT redraw to confirm. Will await result and notify
--- NOTE | 2019-06-25 06:33 | NUR ---
NURSE NOTES: COVID 19 results negative; called Dr Kemp regarding negative results and possible downgrade to tele. Will await call back. Will endorse to oncoming shift. Will continue to monitor.
--- NOTE | 2019-06-25 07:06 | NUR ---
HAND-OFF: Report given to AROLDO Turner. Endorsed plan of care.
--- NOTE | 2019-06-25 07:20 | NUR ---
NURSE NOTES: Report received from Caroline Heard RN.pt confused, screams on and off, restless,with bilat soft wri8st restraints,noted no resp distress,ion 2L NC ,no signs of pain or discomfort S-Tach on the monitor Kept NPO ,pt for US abdomen ,Neal cath draining yellow urine,skin warm and dry with IVF D5NS at 50 ml/hr to RFA,IV site intact,SR up x3 HOB elevated,bed lock in lowest position will continue with plans of care.
[2019-06-25 08:14] LABS: HEMATOCRIT 20.1 % (37.0-47.0); HEMOGLOBIN 7.5 G/DL (12.0-16.0); MEAN CORPUSCULAR VOLUME 96 FL (80-99); PLATELET COUNT 113 K/UL (150-450); RED BLOOD COUNT 2.09 M/UL (4.20-5.40); RED CELL DISTRIBUTION WIDTH 19.1 % (11.6-14.8); WHITE BLOOD COUNT 16.4 K/UL (4.8-10.8)
--- NOTE | 2019-06-25 08:47 | NUR ---
RD ASSESSMENT & RECOMMENDATIONS SEE CARE ACTIVITY FOR COMPLETE ASSESSMENT DAILY ESTIMATED NEEDS: Needs based on hepatic, pulmonary 61.8kg 25-30 kcals/kg 8769-5993 total kcals 1-1.5 g protein/kg 62-93 g total protein 25-30 mL/kg 4054-4940 total fluid mLs NUTRITION DIAGNOSIS: Swallowing difficulty r/t dysphagia, confusion as evidenced by [employer] eval, now on puree texture, poor po intake, A&O x3. CURRENT DIET: Now NPO PO DIET RECOMMENDATIONS: Liberalized REGULAR diet/ texture per [employer] ADDITIONAL RECOMMENDATIONS: 1) Add GLUCERNA 1 tetra TID w/ meals with active diet order 2) 1:1 feeds able, currently poor po intake 3) Monitor for hypoglycemia w/ poor po -> consider D5 w/ poor intake 4) Calibrated bed scale wts, monitor trend w/ poor po 5) Pt is full code, consult RD for GTF recs if TF's are part of POC
[2019-06-25] MEDS: Heparin 5000 units/ml inj SUBQ SCH (09:00)
[2019-06-25] MEDS: Sodium Polystyrene Sulfonate 15gm Powder ORAL ONE ×2 (09:00→10:21)
[2019-06-25] MEDS: Megace 400mg/10ml Susp ORAL SCH ×2 (09:00→10:22)
[2019-06-25] MEDS ORDERED: D5NS 1,000 ML IV SCH (09:15)
--- NOTE | 2019-06-25 10:12 | Diagnostic Imaging Report ---
Indication: Abdominal pain Technique: Grayscale and duplex Doppler imaging of the abdomen performed. Comparison: None Findings: There is a moderate to severe ascites. The liver is heterogeneous and there is a abnormal echotexture and surface nodularity is present. Findings indicate chronic disease. The portal vein is patent shows monophasic waveform in the appropriate flow direction. Gallstone is noted. Spleen is normal size. CBD is 5 mm. Kidneys are unremarkable. There is no hydronephrosis. Demonstrated part of the pancreas is unremarkable although not well seen. The aorta is not visualized. IMPRESSION: Moderate to severe ascites due to chronic liver disease. Cholelithiasis
--- NOTE | 2019-06-25 10:18 | Pulmonology Progress Note ---
Assessment/Plan Assessment/Plan IMPRESSION: 1. Probable metastatic pulmonary disease. 2. Low suspicion for COVID-19. 3. Hepatocellular mass. Likely carcinoma 4. Schizophrenia. 5. Diabetes mellitus. DISCUSSION: Continue isolation given risk factors for COVID-19 being jail resident, cough, hypoxia. Discussed with Gastroenterology. Await results of repeat laboratory testing. I will follow carefully. Trip Martines M.D. Subjective Interval Events: None new Constitutional: Reports: no symptoms HEENT: Repors: no symptoms Respiratory: Reports: no symptoms Cardiovascular: Reports: no symptoms Allergies: Coded Allergies: PENICILLINS (Verified Allergy, Unknown, 06/18/19) Objective Last 24 Hour Vital Signs Date Time Temp Pulse Resp B/P (MAP) Pulse Ox O2 Delivery O2 Flow Rate FiO2 06/25/19 04:00 Nasal Cannula 3.0 06/25/19 04:00 108 06/25/19 04:00 98.0 92 20 109/59 (76) 95 06/25/19 00:00 97.4 105 20 115/60 (78) 99 06/25/19 00:00 Nasal Cannula 3.0 06/25/19 00:00 105 06/24/19 20:00 98.2 101 20 106/55 (72) 99 06/24/19 20:00 Nasal Cannula 3.0 06/24/19 19:44 102 06/24/19 16:00 97.5 78 20 116/57 (76) 100 06/24/19 16:00 Nasal Cannula 2.0 06/24/19 15:27 100 06/24/19 14:37 106 116/57 06/24/19 12:00 97.0 89 20 115/92 (100) 100 06/24/19 12:00 Nasal Cannula 2.0 06/24/19 11:40 86 Intake and Output 06/24/19 06/25/19 19:00 07:00 Intake Total 1199 ml 549.167 ml Output Total 250 ml 200 ml Balance 949 ml 349.167 ml Intake Oral 60 ml 0 ml IV Total 1139 ml 549.167 ml Output Urine Total 250 ml 200 ml General Appearance: no acute distress HEENT: normocephalic Respiratory/Chest: chest wall non-tender Cardiovascular: normal peripheral pulses Microbiology Date/Time Source Procedure Growth Status 06/23/19 09:30 Nasopharynx Coronavirus COVID-19 PCR (CRICKET) - Final Complete Laboratory Tests 06/24/19 14:15: Urine Random Sodium < 20L 06/25/19 03:41: White Blood Count 14.9H, Red Blood Count 2.11L, Hemoglobin 7.1L, Hematocrit 20.3L, Mean Corpuscular Volume 96, Mean Corpuscular Hemoglobin 33.5H, Mean Corpuscular Hemoglobin Concent 34.8, Red Cell Distribution Width 18.5H, Platelet Count 110L, Mean Platelet Volume 5.6L, Neutrophils (%) (Auto) , Lymphocytes (%) (Auto) , Monocytes (%) (Auto) , Eosinophils (%) (Auto) , Basophils (%) (Auto) , Differential Total Cells Counted 100, Neutrophils % ( Manual) 84H, Lymphocytes % (Manual) 6L, Monocytes % (Manual) 6, Eosinophils % ( Manual) 0, Basophils % (Manual) 0, Band Neutrophils 4, Platelet Estimate DecreasedL, Platelet Morphology Normal, Anisocytosis 1+, Sodium Level 138, Potassium Level 5.4H, Chloride Level 106, Carbon Dioxide Level 18L, Anion Gap 14 , Blood Urea Nitrogen 87H, Creatinine 1.9H, Estimat Glomerular Filtration Rate 26.3, Glucose Level 137H, Hemoglobin A1c 4.5, Uric Acid 12.7H, Calcium Level 7.8L, Phosphorus Level 4.8, Magnesium Level 3.3H, Total Bilirubin 2.3H, Direct Bilirubin 1.5H, Aspartate Amino Transf (AST/SGOT) 46H, Alanine Aminotransferase (ALT/SGPT) 19, Alkaline Phosphatase 94, Ammonia 19, C-Reactive Protein, Quantitative 13.3H, Pro-B-Type Natriuretic Peptide 809H, Total Protein 6.4, Albumin 2.7L, Globulin 3.7, Albumin/Globulin Ratio 0.7L, Vitamin B12 Level > 2000H, Folate 13.9 06/25/19 06:00: Urine Eosinophils None seen 06/25/19 07:50: White Blood Count 16.4H, Red Blood Count 2.09L, Hemoglobin 7.5L, Hematocrit 20.1L, Mean Corpuscular Volume 96, Mean Corpuscular Hemoglobin 35.8H, Mean Corpuscular Hemoglobin Concent 37.1H, Red Cell Distribution Width 19.1H, Platelet Count 113L, Mean Platelet Volume 5.6L, Neutrophils (%) (Auto) , Lymphocytes (%) (Auto) , Monocytes (%) (Auto) , Eosinophils (%) (Auto) , Basophils (%) (Auto) , Differential Total Cells Counted 100, Neutrophils % ( Manual) 88H, Lymphocytes % (Manual) 3L, Monocytes % (Manual) 9, Eosinophils % ( Manual) 0, Basophils % (Manual) 0, Band Neutrophils 0, Platelet Estimate DecreasedL, Platelet Morphology Normal, Anisocytosis 1+, Hypochromasia 1+ Current Medications Medications (Trade) Dose Ordered Sig/Idalia Route PRN Reason Start Time Stop Time Status Last Admin Dose Admin Acetaminophen (Tylenol) 500 mg Q6H PRN ORAL Mild Pain/Temp > 100.5 06/18/19 20:15 07/18/19 20:14 06/18/19 21:51 Ceftriaxone Sodium 1 gm/ Dextrose 55 ml @ 110 mls/hr Q24H IVPB 06/23/19 12:45 06/30/19 12:44 06/24/19 12:59 Dextrose (Dextrose 50%) 25 ml Q30M PRN IV Hypoglycemia 06/19/19 09:45 09/17/19 09:44 Dextrose (Dextrose 50%) 50 ml Q30M PRN IV Hypoglycemia 06/19/19 09:45 09/17/19 09:44 Dextrose/Sodium Chloride 1,000 ml @ 75 mls/hr [id number] IV 06/25/19 09:15 07/24/19 09:14 Guaifenesin/ Codeine Phosphate (Robitussin with codeine) 5 ml Q6H PRN ORAL For Cough 06/19/19 10:00 07/19/19 09:59 06/23/19 00:20 Heparin Sodium (Porcine) (Heparin 5000 units/ml) 5,000 units EVERY 12 HOURS SUBQ 06/22/19 21:00 08/06/19 20:59 Hydromorphone HCl (Dilaudid) 0.25 mg Q3H PRN IVP severe pain 06/20/19 13:00 06/26/19 18:59 06/23/19 17:17 Insulin Aspart (NovoLOG) BEFORE MEALS AND HS SUBQ 06/19/19 11:30 09/17/19 11:29 06/19/19 20:18 Lorazepam (Ativan) 1 mg Q6H PRN ORAL For Anxiety 06/18/19 23:30 06/25/19 23:29 06/23/19 23:43 Megestrol Acetate (Megace) 400 mg DAILY ORAL 06/23/19 09:00 09/21/19 08:59 06/24/19 09:35 Naloxone HCl (Narcan) 0.2 mg Q2M PRN IVP respiratory depression 06/20/19 12:00 09/18/19 11:59 Olanzapine (ZyPREXA) 5 mg BID ORAL 06/22/19 15:23 08/06/19 15:22 06/24/19 18:29 Pantoprazole (Protonix) 40 mg Q12HR IVP 06/24/19 21:00 07/23/19 08:59 06/24/19 21:01 Propranolol HCl (Inderal) 12.5 mg Q8HR ORAL 06/23/19 14:00 07/21/19 13:59 06/24/19 14:37 Trip Martines MD Jun 25, 2019 10:18
[2019-06-25] MEDS: Pantoprazole Inj IVP SCH ×2 (10:22→21:55)
--- NOTE | 2019-06-25 10:23 | Hematology/Onc Progress Note ---
Assessment/Plan Assessment/Plan Assessment and Recs # 7.7 cm left lobe hepatic mass is concerning for hepatocellular carcinoma, particularly given cirrhosis. A large metastasis is also possible. Consider multiphase hepatic protocol MRI. --> also imaging revealed Right renal hypodensities that are too small to characterize. --> seen by gi and surg --> tumor markers show afp 155, cea 26, ca19.9 1660 --> if afp >200, likely hcc, may still need mri --> High recommend to get a tissue diagnosis to confirm diagnosis --> agree with gi is likely cholangio v hcc v pancreatic with mets # Pancytopenia -- multiple etiologies and in this case is related to cirrjosis --> peripheral smear has been ordered and does not show significant abnormalities --> Medications have been reviewed --> Continue to monitor for improvement, trend cbc --> Hep panel and HIV NEGATIVE --> US abd ordered to r/o cirrhosis and hepatosplenomegaly --> DOES SHOW SPLENOMEGALY AND CIRRHOSIS++ --> reverse isolation if ANC is <2000 --> Give neupogen if ANC <1000 --> Transfuse if hgb <7, with 1 unit prbc # FTT may need nutrition support --> when off iso may need peg --> abx: ceftriaxone --> alia positive # Coagulopathy - Cirrhosis, ? etiology --> likely will need ffp and vit k if bleeds --> likely to be a chronic issue with cirrhosis # Abd distention, likely ascites --> also r/o COVID --> isolation # Dvt ppx heparin sq The timing of this note does not necessarily reflect the time of the patient was seen. Greatly appreciate consultation. Subjective Allergies: Coded Allergies: PENICILLINS (Verified Allergy, Unknown, 06/18/19) Subjective 06/20 no events, no bleeding, tumor markers still pending, imaging noted 06/21 still somewhat confused this am, trying to crawl out of bed, no bleeding or chills 06/22 seen by gi for peg when off iso, no bleeding, plt 118k 06/23 no events, no bleeding, labs noted, cbc reviewed, no night sweats, uncomfortable still 06/24 covid 19 negative, labs reviewed, afebrile, on ceftriaxone Objective Objective Current Medications Medications (Trade) Dose Ordered Sig/Idalia Route PRN Reason Start Time Stop Time Status Last Admin Dose Admin Acetaminophen (Tylenol) 500 mg Q6H PRN ORAL Mild Pain/Temp > 100.5 06/18/19 20:15 07/18/19 20:14 06/18/19 21:51 Ceftriaxone Sodium 1 gm/ Dextrose 55 ml @ 110 mls/hr Q24H IVPB 06/23/19 12:45 06/30/19 12:44 06/24/19 12:59 Dextrose (Dextrose 50%) 25 ml Q30M PRN IV Hypoglycemia 06/19/19 09:45 09/17/19 09:44 Dextrose (Dextrose 50%) 50 ml Q30M PRN IV Hypoglycemia 06/19/19 09:45 09/17/19 09:44 Dextrose/Sodium Chloride 1,000 ml @ 75 mls/hr [id number] IV 06/25/19 09:15 07/24/19 09:14 Guaifenesin/ Codeine Phosphate (Robitussin with codeine) 5 ml Q6H PRN ORAL For Cough 06/19/19 10:00 07/19/19 09:59 06/23/19 00:20 Heparin Sodium (Porcine) (Heparin 5000 units/ml) 5,000 units EVERY 12 HOURS SUBQ 06/22/19 21:00 08/06/19 20:59 Hydromorphone HCl (Dilaudid) 0.25 mg Q3H PRN IVP severe pain 06/20/19 13:00 06/26/19 18:59 06/23/19 17:17 Insulin Aspart (NovoLOG) BEFORE MEALS AND HS SUBQ 06/19/19 11:30 09/17/19 11:29 06/19/19 20:18 Lorazepam (Ativan) 1 mg Q6H PRN ORAL For Anxiety 06/18/19 23:30 06/25/19 23:29 06/23/19 23:43 Megestrol Acetate (Megace) 400 mg DAILY ORAL 06/23/19 09:00 09/21/19 08:59 06/24/19 09:35 Naloxone HCl (Narcan) 0.2 mg Q2M PRN IVP respiratory depression 06/20/19 12:00 09/18/19 11:59 Olanzapine (ZyPREXA) 5 mg BID ORAL 06/22/19 15:23 08/06/19 15:22 06/24/19 18:29 Pantoprazole (Protonix) 40 mg Q12HR IVP 06/24/19 21:00 07/23/19 08:59 06/24/19 21:01 Propranolol HCl (Inderal) 12.5 mg Q8HR ORAL 06/23/19 14:00 07/21/19 13:59 06/24/19 14:37 Last 24 Hour Vital Signs Date Time Temp Pulse Resp B/P (MAP) Pulse Ox O2 Delivery O2 Flow Rate FiO2 06/25/19 04:00 Nasal Cannula 3.0 06/25/19 04:00 108 06/25/19 04:00 98.0 92 20 109/59 (76) 95 06/25/19 00:00 97.4 105 20 115/60 (78) 99 06/25/19 00:00 Nasal Cannula 3.0 06/25/19 00:00 105 06/24/19 20:00 98.2 101 20 106/55 (72) 99 06/24/19 20:00 Nasal Cannula 3.0 06/24/19 19:44 102 06/24/19 16:00 97.5 78 20 116/57 (76) 100 06/24/19 16:00 Nasal Cannula 2.0 06/24/19 15:27 100 06/24/19 14:37 106 116/57 06/24/19 12:00 97.0 89 20 115/92 (100) 100 06/24/19 12:00 Nasal Cannula 2.0 06/24/19 11:40 86 06/24/19 08:00 97.0 87 20 101/71 (81) 95 06/24/19 08:00 Nasal Cannula 2.0 06/24/19 07:41 94 06/24/19 04:00 Nasal Cannula 2.0 06/24/19 04:00 97.9 87 20 109/74 (86) 100 06/24/19 03:34 101 06/24/19 00:00 Nasal Cannula 2.0 06/24/19 00:00 98.1 110 20 122/72 (89) 99 06/23/19 23:30 103 06/23/19 22:12 101 136/76 06/23/19 20:00 98.0 105 20 134/74 (94) 99 06/23/19 20:00 Nasal Cannula 2.0 06/23/19 20:00 101 06/23/19 16:00 Nasal Cannula 2.0 06/23/19 16:00 97.2 99 20 140/79 (99) 99 06/23/19 16:00 95 06/23/19 14:15 101 135/71 06/23/19 12:00 Nasal Cannula 2.0 06/23/19 12:00 97.8 102 20 129/75 (93) 98 06/23/19 11:38 102 Intake and Output 06/24/19 06/25/19 19:00 07:00 Intake Total 1199 ml 549.167 ml Output Total 250 ml 200 ml Balance 949 ml 349.167 ml Intake Oral 60 ml 0 ml IV Total 1139 ml 549.167 ml Output Urine Total 250 ml 200 ml Labs Test 06/23/19 06:15 06/23/19 08:50 06/23/19 14:30 06/24/19 04:00 Prothrombin Time 14.4 SEC (9.30-11.50) 15.4 SEC (9.30-11.50) Prothromb Time International Ratio 1.4 (0.9-1.1) 1.5 (0.9-1.1) Sodium Level 135 MMOL/L (136-145) 133 MMOL/L (136-145) Potassium Level 5.2 MMOL/L (3.5-5.1) 5.4 MMOL/L (3.5-5.1) Chloride Level 103 MMOL/L (98-107) 102 MMOL/L (98-107) Carbon Dioxide Level 19 MMOL/L (21-32) 20 MMOL/L (21-32) Anion Gap 13 mmol/L (5-15) 11 mmol/L (5-15) Blood Urea Nitrogen 62 mg/dL (7-18) 79 mg/dL (7-18) Creatinine 1.2 MG/DL (0.55-1.30) 1.6 MG/DL (0.55-1.30) Estimat Glomerular Filtration Rate 44.8 mL/min (>60) 32.1 mL/min (>60) Glucose Level 85 MG/DL (74-106) 117 MG/DL (74-106) Calcium Level 8.1 MG/DL (8.5-10.1) 7.9 MG/DL (8.5-10.1) Total Bilirubin 1.5 MG/DL (0.2-1.0) 1.9 MG/DL (0.2-1.0) Direct Bilirubin 0.7 MG/DL (0.0-0.3) 1.1 MG/DL (0.0-0.3) Aspartate Amino Transf (AST/SGOT) 43 U/L (15-37) 40 U/L (15-37) Alanine Aminotransferase (ALT/SGPT) 15 U/L (12-78) 12 U/L (12-78) Alkaline Phosphatase 109 U/L (46-116) 102 U/L (46-116) Total Protein 6.6 G/DL (6.4-8.2) 6.4 G/DL (6.4-8.2) Albumin 2.3 G/DL (3.4-5.0) 2.2 G/DL (3.4-5.0) Globulin 4.3 g/dL 4.2 g/dL Albumin/Globulin Ratio 0.5 (1.0-2.7) 0.5 (1.0-2.7) White Blood Count 18.0 K/UL (4.8-10.8) 14.3 K/UL (4.8-10.8) Red Blood Count 3.17 M/UL (4.20-5.40) 2.29 M/UL (4.20-5.40) Hemoglobin 10.5 G/DL (12.0-16.0) 8.4 G/DL (12.0-16.0) Hematocrit 30.8 % (37.0-47.0) 21.6 % (37.0-47.0) Mean Corpuscular Volume 97 FL (80-99) 95 FL (80-99) Mean Corpuscular Hemoglobin 33.3 PG (27.0-31.0) 36.6 PG (27.0-31.0) Mean Corpuscular Hemoglobin Concent 34.2 G/DL (32.0-36.0) 38.7 G/DL (32.0-36.0) Red Cell Distribution Width 18.4 % (11.6-14.8) 17.5 % (11.6-14.8) Platelet Count 125 K/UL (150-450) 118 K/UL (150-450) Mean Platelet Volume 5.8 FL (6.5-10.1) 5.7 FL (6.5-10.1) Neutrophils (%) (Auto) % (45.0-75.0) % (45.0-75.0) Lymphocytes (%) (Auto) % (20.0-45.0) % (20.0-45.0) Monocytes (%) (Auto) % (1.0-10.0) % (1.0-10.0) Eosinophils (%) (Auto) % (0.0-3.0) % (0.0-3.0) Basophils (%) (Auto) % (0.0-2.0) % (0.0-2.0) Differential Total Cells Counted 100 Neutrophils % (Manual) 77 % (45-75) Lymphocytes % (Manual) 8 % (20-45) Monocytes % (Manual) 13 % (1-10) Eosinophils % (Manual) 2 % (0-3) Basophils % (Manual) 0 % (0-2) Band Neutrophils 0 % (0-8) Platelet Estimate Decreased Platelet Morphology Normal Hypochromasia 1+ Anisocytosis 2+ Spherocytes 2+ Urine Color Brown Urine Appearance Clear Urine pH 5 (4.5-8.0) Urine Specific [place] 1.025 (1.005-1.035) Urine Protein Negative (NEGATIVE) Urine Glucose (UA) Negative (NEGATIVE) Urine Ketones Negative (NEGATIVE) Urine Blood Negative (NEGATIVE) Urine Nitrite Negative (NEGATIVE) Urine Bilirubin 2+ (NEGATIVE) Urine Ictotest negative (NEGATIVE) Urine Urobilinogen 4 MG/DL (0.0-1.0) Urine Leukocyte Esterase 1+ (NEGATIVE) Urine RBC 0 /HPF (0 - 2) Urine WBC 0-2 /HPF (0 - 2) Urine Squamous Epithelial Cells Occasional /LPF Urine Bacteria Few /HPF (NONE) Phosphorus Level 5.9 MG/DL (2.5-4.9) Magnesium Level 3.1 MG/DL (1.8-2.4) Test 06/24/19 14:15 06/25/19 03:41 06/25/19 06:00 06/25/19 07:50 Urine Random Sodium < 20 mmol/L (20-110) White Blood Count 14.9 K/UL (4.8-10.8) 16.4 K/UL (4.8-10.8) Red Blood Count 2.11 M/UL (4.20-5.40) 2.09 M/UL (4.20-5.40) Hemoglobin 7.1 G/DL (12.0-16.0) 7.5 G/DL (12.0-16.0) Hematocrit 20.3 % (37.0-47.0) 20.1 % (37.0-47.0) Mean Corpuscular Volume 96 FL (80-99) 96 FL (80-99) Mean Corpuscular Hemoglobin 33.5 PG (27.0-31.0) 35.8 PG (27.0-31.0) Mean Corpuscular Hemoglobin Concent 34.8 G/DL (32.0-36.0) 37.1 G/DL (32.0-36.0) Red Cell Distribution Width 18.5 % (11.6-14.8) 19.1 % (11.6-14.8) Platelet Count 110 K/UL (150-450) 113 K/UL (150-450) Mean Platelet Volume 5.6 FL (6.5-10.1) 5.6 FL (6.5-10.1) Neutrophils (%) (Auto) % (45.0-75.0) % (45.0-75.0) Lymphocytes (%) (Auto) % (20.0-45.0) % (20.0-45.0) Monocytes (%) (Auto) % (1.0-10.0) % (1.0-10.0) Eosinophils (%) (Auto) % (0.0-3.0) % (0.0-3.0) Basophils (%) (Auto) % (0.0-2.0) % (0.0-2.0) Differential Total Cells Counted 100 100 Neutrophils % (Manual) 84 % (45-75) 88 % (45-75) Lymphocytes % (Manual) 6 % (20-45) 3 % (20-45) Monocytes % (Manual) 6 % (1-10) 9 % (1-10) Eosinophils % (Manual) 0 % (0-3) 0 % (0-3) Basophils % (Manual) 0 % (0-2) 0 % (0-2) Band Neutrophils 4 % (0-8) 0 % (0-8) Platelet Estimate Decreased Decreased Platelet Morphology Normal Normal Anisocytosis 1+ 1+ Sodium Level 138 MMOL/L (136-145) Potassium Level 5.4 MMOL/L (3.5-5.1) Chloride Level 106 MMOL/L (98-107) Carbon Dioxide Level 18 MMOL/L (21-32) Anion Gap 14 mmol/L (5-15) Blood Urea Nitrogen 87 mg/dL (7-18) Creatinine 1.9 MG/DL (0.55-1.30) Estimat Glomerular Filtration Rate 26.3 mL/min (>60) Glucose Level 137 MG/DL (74-106) Hemoglobin A1c 4.5 % (4.3-6.0) Uric Acid 12.7 MG/DL (2.6-7.2) Calcium Level 7.8 MG/DL (8.5-10.1) Phosphorus Level 4.8 MG/DL (2.5-4.9) Magnesium Level 3.3 MG/DL (1.8-2.4) Total Bilirubin 2.3 MG/DL (0.2-1.0) Direct Bilirubin 1.5 MG/DL (0.0-0.3) Aspartate Amino Transf (AST/SGOT) 46 U/L (15-37) Alanine Aminotransferase (ALT/SGPT) 19 U/L (12-78) Alkaline Phosphatase 94 U/L (46-116) Ammonia 19 umol/L (11-32) C-Reactive Protein, Quantitative 13.3 mg/dL (0.00-0.90) Pro-B-Type Natriuretic Peptide 809 pg/mL (0-125) Total Protein 6.4 G/DL (6.4-8.2) Albumin 2.7 G/DL (3.4-5.0) Globulin 3.7 g/dL Albumin/Globulin Ratio 0.7 (1.0-2.7) Vitamin B12 Level > 2000 PG/ML (193-986) Folate 13.9 NG/ML (8.6-58.9) Urine Eosinophils None seen (NONE SEEN) Hypochromasia 1+ Height (Feet): 5 Height (Inches): 4.00 Weight (Pounds): 136 Objective Physical Exam: Vitals: reviewed General: NAD HEENT: nc, at Neck: supple Chest: clear breath sounds bilaterally, nc+ Cardiovascular: RRR, no s3, s4 Abdomen: soft, nontender, nd Extremities: no cce, normal range of motion Neuro: alert and oriented Cristobal Staples MD Jun 25, 2019 10:23
--- NOTE | 2019-06-25 11:00 | Pre-Procedure Note/Attestation ---
Pre-Procedure Note/Attestation Complete Prior to Procedure Procedure Narrative: egd/peg Indications for Procedure Pre-Operative Diagnosis: dysphagia Attestation I attest that I discussed the nature of the procedure; its benefits; risks and complications; and alternatives (and the risks and benefits of such alternatives ), prior to the procedure, with the patient (or the patient's legal branch customer service representative). I attest that, if there was a reasonable possibility of needing a blood transfusion, the patient (or the patient's legal branch customer service representative) was given the [facility] standardized written summary, pursuant to the [place] Blood Safety Act ([place] Health and Safety Code # 1645, as amended). I attest that I re-evaluated the patient just prior to the surgery and that there has been no change in the patient's H&P, except as documented below: Howard Childers MD Jun 25, 2019 11:00
--- NOTE | 2019-06-25 11:00 | NUR ---
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
--- NOTE | 2019-06-25 11:52 | Nephrology Progress Note ---
Assessment/Plan Problem List: (1) LEANDRO (acute kidney injury) Assessment: Serum creatinine up to 1.9 (2) Hyperkalemia (3) Liver cirrhosis (4) Liver mass Assessment - LEANDRO , serum creatinine [place] to 1.6, likely multifactorial, due to underlying liver disease, antibiotics, low blood pressure. - Hyperkalemia - Hypoalbuminemia - Cirrhosis, ? etiology - Large liver mass, suspect CA - poor Px - lung nodules - abd distention, likely ascites - r/o COVID -FTT -Anemia -UTI -DM -gallstones Plan Slow saline hydration, Albumin 5% bolus Neal catheter Avoid nephrotoxic's Follow-up with renal parameters Urine studies Per orders Poor prognosis Objective Objective Last 24 Hour Vital Signs Date Time Temp Pulse Resp B/P (MAP) Pulse Ox O2 Delivery O2 Flow Rate FiO2 06/25/19 08:00 Nasal Cannula 3.0 06/25/19 04:00 Nasal Cannula 3.0 06/25/19 04:00 108 06/25/19 04:00 98.0 92 20 109/59 (76) 95 06/25/19 00:00 97.4 105 20 115/60 (78) 99 06/25/19 00:00 Nasal Cannula 3.0 06/25/19 00:00 105 06/24/19 20:00 98.2 101 20 106/55 (72) 99 06/24/19 20:00 Nasal Cannula 3.0 06/24/19 19:44 102 06/24/19 16:00 97.5 78 20 116/57 (76) 100 06/24/19 16:00 Nasal Cannula 2.0 06/24/19 15:27 100 06/24/19 14:37 106 116/57 06/24/19 12:00 97.0 89 20 115/92 (100) 100 06/24/19 12:00 Nasal Cannula 2.0 Intake and Output 06/24/19 06/25/19 19:00 07:00 Intake Total 1199 ml 549.167 ml Output Total 250 ml 200 ml Balance 949 ml 349.167 ml Intake Oral 60 ml 0 ml IV Total 1139 ml 549.167 ml Output Urine Total 250 ml 200 ml Laboratory Tests 06/24/19 14:15: Urine Random Sodium < 20L 06/25/19 03:41: White Blood Count 14.9H, Red Blood Count 2.11L, Hemoglobin 7.1L, Hematocrit 20.3L, Mean Corpuscular Volume 96, Mean Corpuscular Hemoglobin 33.5H, Mean Corpuscular Hemoglobin Concent 34.8, Red Cell Distribution Width 18.5H, Platelet Count 110L, Mean Platelet Volume 5.6L, Neutrophils (%) (Auto) , Lymphocytes (%) (Auto) , Monocytes (%) (Auto) , Eosinophils (%) (Auto) , Basophils (%) (Auto) , Differential Total Cells Counted 100, Neutrophils % ( Manual) 84H, Lymphocytes % (Manual) 6L, Monocytes % (Manual) 6, Eosinophils % ( Manual) 0, Basophils % (Manual) 0, Band Neutrophils 4, Platelet Estimate DecreasedL, Platelet Morphology Normal, Anisocytosis 1+, Sodium Level 138, Potassium Level 5.4H, Chloride Level 106, Carbon Dioxide Level 18L, Anion Gap 14 , Blood Urea Nitrogen 87H, Creatinine 1.9H, Estimat Glomerular Filtration Rate 26.3, Glucose Level 137H, Hemoglobin A1c 4.5, Uric Acid 12.7H, Calcium Level 7.8L, Phosphorus Level 4.8, Magnesium Level 3.3H, Total Bilirubin 2.3H, Direct Bilirubin 1.5H, Aspartate Amino Transf (AST/SGOT) 46H, Alanine Aminotransferase (ALT/SGPT) 19, Alkaline Phosphatase 94, Ammonia 19, C-Reactive Protein, Quantitative 13.3H, Pro-B-Type Natriuretic Peptide 809H, Total Protein 6.4, Albumin 2.7L, Globulin 3.7, Albumin/Globulin Ratio 0.7L, Vitamin B12 Level > 2000H, Folate 13.9 06/25/19 06:00: Urine Eosinophils None seen 06/25/19 07:50: White Blood Count 16.4H, Red Blood Count 2.09L, Hemoglobin 7.5L, Hematocrit 20.1L, Mean Corpuscular Volume 96, Mean Corpuscular Hemoglobin 35.8H, Mean Corpuscular Hemoglobin Concent 37.1H, Red Cell Distribution Width 19.1H, Platelet Count 113L, Mean Platelet Volume 5.6L, Neutrophils (%) (Auto) , Lymphocytes (%) (Auto) , Monocytes (%) (Auto) , Eosinophils (%) (Auto) , Basophils (%) (Auto) , Differential Total Cells Counted 100, Neutrophils % ( Manual) 88H, Lymphocytes % (Manual) 3L, Monocytes % (Manual) 9, Eosinophils % ( Manual) 0, Basophils % (Manual) 0, Band Neutrophils 0, Platelet Estimate DecreasedL, Platelet Morphology Normal, Anisocytosis 1+, Hypochromasia 1+ Height (Feet): 5 Height (Inches): 4.00 Weight (Pounds): 136 Alex Aguilar MD Jun 25, 2019 11:51
--- NOTE | 2019-06-25 11:54 | Anethesia Preoperative Eval ---
Anesthesia Pre-op PMH/ROS General Date of Evaluation: Jun 25, 2019 Time of Evaluation: 11:50 Anesthesiologist: Ayleen ASA Score: ASA 4 Mallampati Score Class I : Soft palate, uvula, fauces, pillars visible Class II: Soft palate, uvula, fauces visible Class III: Soft palate, base of uvula visible Class IV: Only hard plate visible Mallampati Classification: Class III Surgeon: Liseth Diagnosis: Dysphagia Surgical Procedure: EGD Anesthesia History: none Family History: no anesthesia problems Allergies: Coded Allergies: PENICILLINS (Verified Allergy, Unknown, 06/18/19) Medications: see eMAR Patient NPO?: Yes Past Medical History Cardiovascular: Reports: HTN; Denies: CAD, RI, valve dz, arrhythmia, other Pulmonary: Denies: asthma, COPD, JONATHON, other Gastrointestinal/Genitourinary: Reports: GERD, other - Liver mass and cirrosis ; Denies: CRI, ESRD Neurologic/Psychiatric: Reports: depression/anxiety; Denies: dementia, CVA, TIA, other Endocrine: Reports: hypothyroidism; Denies: DM, steroids, other HEENT: Denies: cataract (L), cataract (R), glaucoma, IROQUOIS (L), IROQUOIS (R), other Hematology/Immune: Reports: anemia; Denies: DVT, bleeding disorder, other Musculoskeletal/Integumentary: Denies: OA, RA, DJD, DDD, edema, other PMH Narrative: as above PSxH Narrative: See H&P Anesthesia Pre-op Phys. Exam Physician Exam Last Vital Signs Date Time Temp Pulse Resp B/P (MAP) Pulse Ox O2 Delivery O2 Flow Rate FiO2 06/25/19 04:00 Nasal Cannula 3.0 06/25/19 04:00 108 06/25/19 04:00 98.0 20 109/59 (76) 95 Constitutional: NAD Neurologic: other - unable to obtaine Cardiovascular: RRR Respiratory: other - diminished breath sounds Gastrointestinal: other - distended Airway Exam Mallampati Score: Class III MO: limited Neck: stiff ROM: limited Teeth: missing Dentures: no upper, no lower Anesthesia Pre-op A/P Labs Hematology Test 06/25/19 03:41 06/25/19 07:50 White Blood Count 14.9 K/UL (4.8-10.8) H 16.4 K/UL (4.8-10.8) H Red Blood Count 2.11 M/UL (4.20-5.40) L 2.09 M/UL (4.20-5.40) L Hemoglobin 7.1 G/DL (12.0-16.0) L 7.5 G/DL (12.0-16.0) L Hematocrit 20.3 % (37.0-47.0) L 20.1 % (37.0-47.0) L Mean Corpuscular Volume 96 FL (80-99) 96 FL (80-99) Mean Corpuscular Hemoglobin 33.5 PG (27.0-31.0) H 35.8 PG (27.0-31.0) H Mean Corpuscular Hemoglobin Concent 34.8 G/DL (32.0-36.0) 37.1 G/DL (32.0-36.0) H Red Cell Distribution Width 18.5 % (11.6-14.8) H 19.1 % (11.6-14.8) H Platelet Count 110 K/UL (150-450) L 113 K/UL (150-450) L Mean Platelet Volume 5.6 FL (6.5-10.1) L 5.6 FL (6.5-10.1) L Neutrophils (%) (Auto) % (45.0-75.0) % (45.0-75.0) Lymphocytes (%) (Auto) % (20.0-45.0) % (20.0-45.0) Monocytes (%) (Auto) % (1.0-10.0) % (1.0-10.0) Eosinophils (%) (Auto) % (0.0-3.0) % (0.0-3.0) Basophils (%) (Auto) % (0.0-2.0) % (0.0-2.0) Differential Total Cells Counted 100 100 Neutrophils % (Manual) 84 % (45-75) H 88 % (45-75) H Lymphocytes % (Manual) 6 % (20-45) L 3 % (20-45) L Monocytes % (Manual) 6 % (1-10) 9 % (1-10) Eosinophils % (Manual) 0 % (0-3) 0 % (0-3) Basophils % (Manual) 0 % (0-2) 0 % (0-2) Band Neutrophils 4 % (0-8) 0 % (0-8) Platelet Estimate Decreased L Decreased L Platelet Morphology Normal Normal Anisocytosis 1+ 1+ Hypochromasia 1+ Chemistry Test 06/25/19 03:41 Sodium Level 138 MMOL/L (136-145) Potassium Level 5.4 MMOL/L (3.5-5.1) H Chloride Level 106 MMOL/L (98-107) Carbon Dioxide Level 18 MMOL/L (21-32) L Anion Gap 14 mmol/L (5-15) Blood Urea Nitrogen 87 mg/dL (7-18) H Creatinine 1.9 MG/DL (0.55-1.30) H Estimat Glomerular Filtration Rate 26.3 mL/min (>60) Glucose Level 137 MG/DL (74-106) H Hemoglobin A1c 4.5 % (4.3-6.0) Uric Acid 12.7 MG/DL (2.6-7.2) H Calcium Level 7.8 MG/DL (8.5-10.1) L Phosphorus Level 4.8 MG/DL (2.5-4.9) Magnesium Level 3.3 MG/DL (1.8-2.4) H Total Bilirubin 2.3 MG/DL (0.2-1.0) H Direct Bilirubin 1.5 MG/DL (0.0-0.3) H Aspartate Amino Transf (AST/SGOT) 46 U/L (15-37) H Alanine Aminotransferase (ALT/SGPT) 19 U/L (12-78) Alkaline Phosphatase 94 U/L (46-116) Ammonia 19 umol/L (11-32) C-Reactive Protein, Quantitative 13.3 mg/dL (0.00-0.90) H Pro-B-Type Natriuretic Peptide 809 pg/mL (0-125) H Total Protein 6.4 G/DL (6.4-8.2) Albumin 2.7 G/DL (3.4-5.0) L Globulin 3.7 g/dL Albumin/Globulin Ratio 0.7 (1.0-2.7) L Vitamin B12 Level > 2000 PG/ML (193-986) H Folate 13.9 NG/ML (8.6-58.9) Risk Assessment & Plan Assessment: ASA 4 for metastatic CA Plan: MAC Status Change Before Surgery: No Brady Abbasi MD Jun 25, 2019 11:54
--- NOTE | 2019-06-25 12:00 | NUR ---
NURSE NOTES: Pt brought down to GI Lab per yung accompanied by transporter awake alert confused in no resp distress for EGD and Insertion of NGT.Dr Acuña with orders to transfer pt to Telemetry.
--- NOTE | 2019-06-25 12:04 | NUR ---
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 97.2 HR 109 RR 20 B/P 146/73 3L NC O2 SAT @ 98% WBC 16.4 K 5.4 BUN 87 CR 1.9 ALBUMIN 2.7 CXR=Moderate to severe ascites due to chronic liver disease. Cholelithiasis. venous doppler amadeo= negative IS: PHYTONADIONE IV IVF D5NS @ 75ML/HR ALBUMIN IV X 1 CEFTRIAXONE IV PROTONIX IV KAYEXALTE X1 STEP DOWN STATUS
--- NOTE | 2019-06-25 12:24 | NUR ---
ST NOTES: SWALLOW STATUS: PATIENT RECENTLY CLEARED OF COVID 19 AND NPO FOR LIKELY GI PROCEDURE. PATIENT IS SEEN FOR DYSPHAGIA, SEE SWALLOW EVALUATION. GOALS NOT MET FOR INTAKE SHE HAS A LOT OF ABDOMINAL PAIN (BUT IS NOT SAYING WHERE AND HOW MUCH) GOALS FOR INTAKE NOT MET (REFUSES OR 10%). AWAIT EGD RESULTS TO SEE IF PATIENT CAN HAVE A NGT (12 TOGOLESE) PLACED. PER DR ELLIOTT IT IS QUESTIONABLE IF SHE CAN HAVE A PEG AND MAY HAVE A POOR PX REGARDING HCC STATUS. SEE HIS Progress Note: 06/24/19 FOR UPDATES. PT ON PPI NOW. PT TO HAVE EGD SOON. GOALS MET FOR NEW STAFF EDUCATED/TRAINED IN ASPIRATION PRECAUTIONS WITH PO AND ORAL CARE. PATIENT NOT ALERT NOR ANSWERING IF SHE WANTS PO SINCE SHE IS FOCUSED ON HER PAIN. RN AWARE. PLAN: NPO FOR NOW PENDING EGD (? NGT PLACEMENT VERSUS COMFORT FEEDS ON LIQUIFIED PUREED LIKE NECTAR THICK SOUP CONSISTENCY WITH ASPIRATION PRECAUTIONS. MOD BARIUM SWALLOW STUDY ON FRIDAY IF PATIENT IS RECEPTIVE AND NOT IN PAIN TO FURTHER ASSESS SWALLOW, DETERMINE ASPIRATION RISK, AND ATTEMPT TRIAL TX.
--- NOTE | 2019-06-25 12:29 | General Progress Note ---
Assessment/Plan Assessment/Plan: (1) Intractable pain (2) Metastatic disease possible hepatocellular carcinoma Patient will be continued on Dilaudid with parameters. D/w Dr. Cole and he concurred. Subjective Date patient seen: Jun 25, 2019 Time patient seen: 11:15 - am Allergies: Coded Allergies: PENICILLINS (Verified Allergy, Unknown, 06/18/19) Subjective Constitutional: Reports: weakness HEENT: Reports: no symptoms Cardiovascular: Reports: no symptoms Respiratory: Reports: shortness of breath Gastrointestinal/Abdominal: Reports: abdominal pain Genitourinary: Reports: no symptoms Neurologic/Psychiatric: Reports: anxiety Endocrine: Reports: no symptoms Hematologic/Lymphatic: Reports: no symptoms Subjective Patient showing no signs of pain or distress. No new complaints at this time Objective Last 24 Hour Vital Signs Date Time Temp Pulse Resp B/P (MAP) Pulse Ox O2 Delivery O2 Flow Rate FiO2 06/25/19 12:00 Nasal Cannula 3.0 06/25/19 11:49 97.2 107 20 146/73 (97) 92 06/25/19 08:00 Nasal Cannula 3.0 06/25/19 08:00 96.8 109 20 154/63 (93) 92 06/25/19 08:00 106 06/25/19 04:00 Nasal Cannula 3.0 06/25/19 04:00 108 06/25/19 04:00 98.0 92 20 109/59 (76) 95 06/25/19 00:00 97.4 105 20 115/60 (78) 99 06/25/19 00:00 Nasal Cannula 3.0 06/25/19 00:00 105 06/24/19 20:00 98.2 101 20 106/55 (72) 99 06/24/19 20:00 Nasal Cannula 3.0 06/24/19 19:44 102 06/24/19 16:00 97.5 78 20 116/57 (76) 100 06/24/19 16:00 Nasal Cannula 2.0 06/24/19 15:27 100 06/24/19 14:37 106 116/57 Intake and Output 06/24/19 06/25/19 19:00 07:00 Intake Total 1199 ml 549.167 ml Output Total 250 ml 200 ml Balance 949 ml 349.167 ml Intake Oral 60 ml 0 ml IV Total 1139 ml 549.167 ml Output Urine Total 250 ml 200 ml Laboratory Tests 06/24/19 14:15: Urine Random Sodium < 20L 06/25/19 03:41: White Blood Count 14.9H, Red Blood Count 2.11L, Hemoglobin 7.1L, Hematocrit 20.3L, Mean Corpuscular Volume 96, Mean Corpuscular Hemoglobin 33.5H, Mean Corpuscular Hemoglobin Concent 34.8, Red Cell Distribution Width 18.5H, Platelet Count 110L, Mean Platelet Volume 5.6L, Neutrophils (%) (Auto) , Lymphocytes (%) (Auto) , Monocytes (%) (Auto) , Eosinophils (%) (Auto) , Basophils (%) (Auto) , Differential Total Cells Counted 100, Neutrophils % ( Manual) 84H, Lymphocytes % (Manual) 6L, Monocytes % (Manual) 6, Eosinophils % ( Manual) 0, Basophils % (Manual) 0, Band Neutrophils 4, Platelet Estimate DecreasedL, Platelet Morphology Normal, Anisocytosis 1+, Sodium Level 138, Potassium Level 5.4H, Chloride Level 106, Carbon Dioxide Level 18L, Anion Gap 14 , Blood Urea Nitrogen 87H, Creatinine 1.9H, Estimat Glomerular Filtration Rate 26.3, Glucose Level 137H, Hemoglobin A1c 4.5, Uric Acid 12.7H, Calcium Level 7.8L, Phosphorus Level 4.8, Magnesium Level 3.3H, Total Bilirubin 2.3H, Direct Bilirubin 1.5H, Aspartate Amino Transf (AST/SGOT) 46H, Alanine Aminotransferase (ALT/SGPT) 19, Alkaline Phosphatase 94, Ammonia 19, C-Reactive Protein, Quantitative 13.3H, Pro-B-Type Natriuretic Peptide 809H, Total Protein 6.4, Albumin 2.7L, Globulin 3.7, Albumin/Globulin Ratio 0.7L, Vitamin B12 Level > 2000H, Folate 13.9 06/25/19 06:00: Urine Eosinophils None seen 06/25/19 07:50: White Blood Count 16.4H, Red Blood Count 2.09L, Hemoglobin 7.5L, Hematocrit 20.1L, Mean Corpuscular Volume 96, Mean Corpuscular Hemoglobin 35.8H, Mean Corpuscular Hemoglobin Concent 37.1H, Red Cell Distribution Width 19.1H, Platelet Count 113L, Mean Platelet Volume 5.6L, Neutrophils (%) (Auto) , Lymphocytes (%) (Auto) , Monocytes (%) (Auto) , Eosinophils (%) (Auto) , Basophils (%) (Auto) , Differential Total Cells Counted 100, Neutrophils % ( Manual) 88H, Lymphocytes % (Manual) 3L, Monocytes % (Manual) 9, Eosinophils % ( Manual) 0, Basophils % (Manual) 0, Band Neutrophils 0, Platelet Estimate DecreasedL, Platelet Morphology Normal, Anisocytosis 1+, Hypochromasia 1+ Height (Feet): 5 Height (Inches): 4.00 Weight (Pounds): 136 Objective General Appearance: no apparent distress EENT: normal ENT inspection Neck: non-tender, normal alignment Cardiovascular: normal rate, regular rhythm Abdomen: soft Extremities: non-tender Edema: trace edema Neurologic: alert Skin: normal pigmentation Joey Gilmore Jun 25, 2019 12:29
[2019-06-25] MEDS ORDERED: Propofol 200mg/20ml IV ONE (12:30)
[2019-06-25] MEDS ORDERED: NS 500ML IVPB ONE (12:35)
[2019-06-25] MEDS: cefTRIAXone 1 GM in D5W 55 ML IVPB SCH (12:45)
--- NOTE | 2019-06-25 12:47 | Endoscopy Procedure Note ---
Endoscopy Procedure Note General Indication for Procedure: cirrhosis Procedures Performed: EGD Operative Findings/Diagnosis: large gastric varices Specimen: none Pt Tolerated Procedure Well: Yes Estimated Blood Loss: none Anesthesia Anesthesiologist: jamal Anesthesia: MAC Inserted Devices Implant(s) used?: No GI Core Measures 50 yrs or older w/o bx or poly: Not Applicable 10yrs. F/U recommended: Not Applicable Howard Childers MD Jun 25, 2019 12:47
[2019-06-25] MEDS ORDERED: Phytonadione 1 MG in D5W 55 ML IVPB ONE (13:00)
--- NOTE | 2019-06-25 13:16 | Immediate Post-Op Evaluation ---
Immediate Post-Op Evalulation Immediate Post-Op Evalulation Procedure: EGD NG tube placement Date of Evaluation: Jun 25, 2019 Time of Evaluation: 13:15 IV Fluids: 200 Blood Products: none Estimated Blood Loss: none Urinary Output: none Blood Pressure Systolic: 112 Blood Pressure Diastolic: 56 Pulse Rate: 86 Respiratory Rate: 22 O2 Sat by Pulse Oximetry: 92 Temperature (Fahrenheit): 97.7 Pain Score (1-10): 1 Nausea: No Vomiting: No Complications none Patient Status: reacts, patent, none Brady Abbasi MD Jun 25, 2019 13:16
--- NOTE | 2019-06-25 13:30 | NUR ---
TRANSFER TO FLOOR: Patient transferred to 2E room 201per bed from GI LAB awake,alert confused , per yung. Report given to Meagan Jimenez RN. . Belongings and medications given to receiving long term and or S/O informed of transfer.
--- NOTE | 2019-06-25 13:33 | NUR ---
NURSE NOTES: Received report from AROLDO Soto from surgery and AROLDO Gillette from [facility]. electronic device monitor on. Endorsed EGD, NG tube done. Patient tolerated well. Endorsed plan for paracentesis, possibly today. Bed in lowest position, side rails upx3, call light within reach, bed alarm on.
--- NOTE | 2019-06-25 13:50 | Infectious Diseases Prog Note ---
Assessment/Plan Assessment/Plan IMPRESSION: Hypoxemia and abnormal CT scan of the chest, more likely metastatic disease. Cirrhosis of liver Portal hypertension, Diabetes mellitus, Hypertension, Cholelithiasis, Anemia, suspected liver neoplasm. Gastric varices RECOMMENDATION: Continue Rocephin Negatuve COVID-19 test. Prognosis is poor Subjective ROS Limited/Unobtainable: Yes Gastrointestinal/Abdominal: Reports: other - Had EGD & NG tube placement Neurologic: Reports: confusion, other - on restraint Allergies: Coded Allergies: PENICILLINS (Verified Allergy, Unknown, 06/18/19) Objective Vital Signs Last 24 Hour Vital Signs Date Time Temp Pulse Resp B/P (MAP) Pulse Ox O2 Delivery O2 Flow Rate FiO2 06/25/19 13:40 97.6 98 29 105/54 90 Nasal Cannula 3 06/25/19 13:20 101 32 106/55 90 Nasal Cannula 3 06/25/19 13:16 86 22 92 06/25/19 13:15 97 28 106/50 90 Nasal Cannula 3 06/25/19 13:10 97.9 96 26 105/51 90 Nasal Cannula 3 06/25/19 12:00 Nasal Cannula 3.0 06/25/19 11:49 97.2 107 20 146/73 (97) 92 06/25/19 08:00 Nasal Cannula 3.0 06/25/19 08:00 96.8 109 20 154/63 (93) 92 06/25/19 08:00 106 06/25/19 04:00 Nasal Cannula 3.0 06/25/19 04:00 108 06/25/19 04:00 98.0 92 20 109/59 (76) 95 06/25/19 00:00 97.4 105 20 115/60 (78) 99 06/25/19 00:00 Nasal Cannula 3.0 06/25/19 00:00 105 06/24/19 20:00 98.2 101 20 106/55 (72) 99 06/24/19 20:00 Nasal Cannula 3.0 06/24/19 19:44 102 06/24/19 16:00 97.5 78 20 116/57 (76) 100 06/24/19 16:00 Nasal Cannula 2.0 06/24/19 15:27 100 06/24/19 14:37 106 116/57 Height (Feet): 5 Height (Inches): 3.00 Weight (Pounds): 136 HEENT: mucous membranes moist Respiratory/Chest: lungs clear Cardiovascular: normal rate Abdomen: distended, other - NG tube Extremities: no edema Neurologic/Psychiatric: disoriented Microbiology Date/Time Source Procedure Growth Status 06/23/19 09:30 Nasopharynx Coronavirus COVID-19 PCR (CRICKET) - Final Complete Laboratory Tests Test 06/24/19 14:15 06/25/19 03:41 06/25/19 06:00 06/25/19 07:50 Urine Random Sodium < 20 mmol/L (20-110) L White Blood Count 14.9 K/UL (4.8-10.8) H 16.4 K/UL (4.8-10.8) H Red Blood Count 2.11 M/UL (4.20-5.40) L 2.09 M/UL (4.20-5.40) L Hemoglobin 7.1 G/DL (12.0-16.0) L 7.5 G/DL (12.0-16.0) L Hematocrit 20.3 % (37.0-47.0) L 20.1 % (37.0-47.0) L Mean Corpuscular Volume 96 FL (80-99) 96 FL (80-99) Mean Corpuscular Hemoglobin 33.5 PG (27.0-31.0) H 35.8 PG (27.0-31.0) H Mean Corpuscular Hemoglobin Concent 34.8 G/DL (32.0-36.0) 37.1 G/DL (32.0-36.0) H Red Cell Distribution Width 18.5 % (11.6-14.8) H 19.1 % (11.6-14.8) H Platelet Count 110 K/UL (150-450) L 113 K/UL (150-450) L Mean Platelet Volume 5.6 FL (6.5-10.1) L 5.6 FL (6.5-10.1) L Neutrophils (%) (Auto) % (45.0-75.0) % (45.0-75.0) Lymphocytes (%) (Auto) % (20.0-45.0) % (20.0-45.0) Monocytes (%) (Auto) % (1.0-10.0) % (1.0-10.0) Eosinophils (%) (Auto) % (0.0-3.0) % (0.0-3.0) Basophils (%) (Auto) % (0.0-2.0) % (0.0-2.0) Differential Total Cells Counted 100 100 Neutrophils % (Manual) 84 % (45-75) H 88 % (45-75) H Lymphocytes % (Manual) 6 % (20-45) L 3 % (20-45) L Monocytes % (Manual) 6 % (1-10) 9 % (1-10) Eosinophils % (Manual) 0 % (0-3) 0 % (0-3) Basophils % (Manual) 0 % (0-2) 0 % (0-2) Band Neutrophils 4 % (0-8) 0 % (0-8) Platelet Estimate Decreased L Decreased L Platelet Morphology Normal Normal Anisocytosis 1+ 1+ Sodium Level 138 MMOL/L (136-145) Potassium Level 5.4 MMOL/L (3.5-5.1) H Chloride Level 106 MMOL/L (98-107) Carbon Dioxide Level 18 MMOL/L (21-32) L Anion Gap 14 mmol/L (5-15) Blood Urea Nitrogen 87 mg/dL (7-18) H Creatinine 1.9 MG/DL (0.55-1.30) H Estimat Glomerular Filtration Rate 26.3 mL/min (>60) Glucose Level 137 MG/DL (74-106) H Hemoglobin A1c 4.5 % (4.3-6.0) Uric Acid 12.7 MG/DL (2.6-7.2) H Calcium Level 7.8 MG/DL (8.5-10.1) L Phosphorus Level 4.8 MG/DL (2.5-4.9) Magnesium Level 3.3 MG/DL (1.8-2.4) H Total Bilirubin 2.3 MG/DL (0.2-1.0) H Direct Bilirubin 1.5 MG/DL (0.0-0.3) H Aspartate Amino Transf (AST/SGOT) 46 U/L (15-37) H Alanine Aminotransferase (ALT/SGPT) 19 U/L (12-78) Alkaline Phosphatase 94 U/L (46-116) Ammonia 19 umol/L (11-32) C-Reactive Protein, Quantitative 13.3 mg/dL (0.00-0.90) H Pro-B-Type Natriuretic Peptide 809 pg/mL (0-125) H Total Protein 6.4 G/DL (6.4-8.2) Albumin 2.7 G/DL (3.4-5.0) L Globulin 3.7 g/dL Albumin/Globulin Ratio 0.7 (1.0-2.7) L Vitamin B12 Level > 2000 PG/ML (193-986) H Folate 13.9 NG/ML (8.6-58.9) Urine Eosinophils None seen (NONE SEEN) Hypochromasia 1+ Current Medications Medications (Trade) Dose Ordered Sig/Idalia Route PRN Reason Start Time Stop Time Status Last Admin Dose Admin Acetaminophen (Tylenol) 500 mg Q6H PRN ORAL Mild Pain/Temp > 100.5 06/18/19 20:15 07/18/19 20:14 06/18/19 21:51 Ceftriaxone Sodium 1 gm/ Dextrose 55 ml @ 110 mls/hr Q24H IVPB 06/23/19 12:45 06/30/19 12:44 06/24/19 12:59 Dextrose (Dextrose 50%) 25 ml Q30M PRN IV Hypoglycemia 06/19/19 09:45 09/17/19 09:44 Dextrose (Dextrose 50%) 50 ml Q30M PRN IV Hypoglycemia 06/19/19 09:45 09/17/19 09:44 Dextrose/Sodium Chloride 1,000 ml @ 75 mls/hr [id number] IV 06/25/19 09:15 07/24/19 09:14 06/25/19 10:23 Guaifenesin/ Codeine Phosphate (Robitussin with codeine) 5 ml Q6H PRN ORAL For Cough 06/19/19 10:00 07/19/19 09:59 06/23/19 00:20 Heparin Sodium (Porcine) (Heparin 5000 units/ml) 5,000 units EVERY 12 HOURS SUBQ 06/22/19 21:00 08/06/19 20:59 Hydromorphone HCl (Dilaudid) 0.25 mg Q3H PRN IVP severe pain 06/20/19 13:00 06/26/19 18:59 06/23/19 17:17 Insulin Aspart (NovoLOG) BEFORE MEALS AND HS SUBQ 06/19/19 11:30 09/17/19 11:29 06/19/19 20:18 Lorazepam (Ativan) 1 mg Q6H PRN ORAL For Anxiety 06/18/19 23:30 06/25/19 23:29 06/23/19 23:43 Megestrol Acetate (Megace) 400 mg DAILY ORAL 06/23/19 09:00 09/21/19 08:59 06/24/19 09:35 Naloxone HCl (Narcan) 0.2 mg Q2M PRN IVP respiratory depression 06/20/19 12:00 09/18/19 11:59 Olanzapine (ZyPREXA) 5 mg BID ORAL 06/22/19 15:23 08/06/19 15:22 06/24/19 18:29 Pantoprazole (Protonix) 40 mg Q12HR IVP 06/24/19 21:00 07/23/19 08:59 06/25/19 10:22 Propranolol HCl (Inderal) 15 mg Q8HR ORAL 06/25/19 14:00 07/21/19 13:59 Manuel Kemp MD Jun 25, 2019 13:50
--- NOTE | 2019-06-25 13:54 | NUR ---
INSURANCE REVIEW FAXED TO LOCATED WITHIN [facility]#[phone] FAX#[phone] REVIEWS/CLINICALS
[2019-06-25] MEDS ORDERED: Propranolol 10mg tab ORAL SCH (14:00)
[2019-06-25] MEDS ORDERED: cefTRIAXone 1 GM in D5W 55 ML IVPB SCH (14:15)
--- NOTE | 2019-06-25 14:45 | Procedure Note ---
DATE OF PROCEDURE: 06/25/2019 SURGEON: Howard Childers M.D. PROCEDURE: Upper endoscopy with NG tube placement. ANESTHESIA: Per Dr. Abbasi. INSTRUMENT: Olympus adult flexible upper endoscope. INDICATION: Cirrhosis, dysphagia. REASON FOR PROCEDURE: The procedure, risks, benefits, and possible consequences, including hemorrhage, aspiration, perforation and infection, and alternative treatments, were explained to the patient/legal guardian by Dr. Howard Childers and the patient/legal guardian understood and accepted these risks. DESCRIPTION OF PROCEDURE: After informed consent was obtained and the patient was adequately sedated, Olympus upper endoscope was advanced from mouth into the second portion of the duodenum and retroflexion was performed in the stomach. The patient had evidence of large gastric varices. No obvious esophageal varices. Then, we placed a Dobhoff tube 10-Lithuanian was successfully passed into the stomach. SUMMARY OF FINDINGS: 1. Large gastric varices. 2. Status post successful Dobhoff tube placement. RECOMMENDATIONS: Start G-tube feeding. Order abdominal ultrasound and paracentesis. The patient to be started on propranolol. The patient has overall very poor prognosis. If she bleeds from this gastric varices that will be most probably very difficult to handle. We will follow. I want to thank, Dr. Era Acuña, for this kind referral. Howard Childers M.D. DR: JAKE JOB#: [id number] CC: Era Acuña M.D.; Fax#: [phone]
[2019-06-25] MEDS ORDERED: Naloxone 0.4mg/ml Inj IVP PRN (15:15)
[2019-06-25] MEDS ORDERED: Acetaminophen 500mg (ES) tab ORAL PRN (15:15)
[2019-06-25] MEDS ORDERED: LORazepam 1mg tab ORAL PRN (15:19)
[2019-06-25] MEDS ORDERED: guaiFENesin w/Codeine 5ml Liq ud ORAL PRN (16:00)
[2019-06-25] MEDS ORDERED: Hydromorphone 0.5mg/0.5ml inj IVP PRN (16:00)
--- NOTE | 2019-06-25 16:30 | NUR ---
NURSE NOTES: Patient pulled out NG-tube, Re-inserted, confirming placement for placement, MD made aware.
--- NOTE | 2019-06-25 17:00 | NUR ---
NURSE NOTES: Paracentesis done at the bedside, no s/s bleeding at this time, denies pain at this time. Endorsed more than 7L out from the right side of abdomen. VS 100/56, HR 105.
--- NOTE | 2019-06-25 17:52 | Diagnostic Imaging Report ---
EXAM: XR Abdomen, 2 Views CLINICAL HISTORY: NGT TECHNIQUE: Frontal view of the abdomen/pelvis with upright view of the abdomen. COMPARISON: CT abdomen and pelvis 06/18/2019 FINDINGS: Intraperitoneal space: No pneumoperitoneum. Gastrointestinal tract: No clearly obstructive bowel gas pattern. Bones/joints: Osteopenia. Tubes, lines and devices: Enteric tube tip above the gastroesophageal junction. Recommend advancement of enteric tube at least 13-15 centimeters to ensure the proximal side port is below the gastroesophageal junction in order to ensure adequate gastric decompression. IMPRESSION: 1. Enteric tube tip above the gastroesophageal junction. 2. Recommend advancement of enteric tube at least 13-15 centimeters to ensure the proximal side port is below the gastroesophageal junction in order to ensure adequate gastric decompression. 3. No pneumoperitoneum. 4. No clearly obstructive bowel gas pattern. <MYCVCSECTION> Communications: 06/25/19 17:59 Verify Receipt with Nurse Verified receipt with BERYL Gar in [facility] for AROLDO Rhodes on 06/24 17:58 (-07:00)
--- NOTE | 2019-06-25 18:32 | Diagnostic Imaging Report ---
EXAM: XR Abdomen, 2 Views CLINICAL HISTORY: NGT TECHNIQUE: Frontal view of the abdomen/pelvis with upright view of the abdomen. COMPARISON: Prior study 2 hours previous FINDINGS: Lower thorax: Unremarkable lung bases. Intraperitoneal space: No free air. Gastrointestinal tract: Unremarkable. No dilation. Bones/joints: Degenerative spine findings and osteopenia. Tubes, lines and devices: Enteric tube with tip and proximal sideport below the gastroesophageal junction. IMPRESSION: 1. Enteric tube with tip and proximal sideport below the gastroesophageal junction. 2. Unremarkable lung bases. 3. No acute abnormality definitively seen.
--- NOTE | 2019-06-25 18:55 | Surgery Progress Note ---
Surgery Progress Note Subjective Additional Comments covid negative GI placed ng feeding tube worsening leukocytosis kub noted Objective Last 24 Hour Vital Signs Date Time Temp Pulse Resp B/P (MAP) Pulse Ox O2 Delivery O2 Flow Rate FiO2 06/25/19 16:00 Nasal Cannula 3.0 06/25/19 16:00 97.2 105 20 122/64 (83) 95 06/25/19 13:40 97.6 98 29 105/54 90 Nasal Cannula 3 06/25/19 13:20 101 32 106/55 90 Nasal Cannula 3 06/25/19 13:16 86 22 92 06/25/19 13:15 97 28 106/50 90 Nasal Cannula 3 06/25/19 13:10 97.9 96 26 105/51 90 Nasal Cannula 3 06/25/19 12:00 Nasal Cannula 3.0 06/25/19 12:00 107 06/25/19 11:49 97.2 107 20 146/73 (97) 92 06/25/19 08:00 Nasal Cannula 3.0 06/25/19 08:00 96.8 109 20 154/63 (93) 92 06/25/19 08:00 106 06/25/19 04:00 Nasal Cannula 3.0 06/25/19 04:00 108 06/25/19 04:00 98.0 92 20 109/59 (76) 95 06/25/19 00:00 97.4 105 20 115/60 (78) 99 06/25/19 00:00 Nasal Cannula 3.0 06/25/19 00:00 105 06/24/19 20:00 98.2 101 20 106/55 (72) 99 06/24/19 20:00 Nasal Cannula 3.0 06/24/19 19:44 102 I&O Intake and Output 06/24/19 06/25/19 19:00 07:00 Intake Total 1199 ml 549.167 ml Output Total 250 ml 200 ml Balance 949 ml 349.167 ml Intake Oral 60 ml 0 ml IV Total 1139 ml 549.167 ml Output Urine Total 250 ml 200 ml Dressing: other Wound: other Drains: other Cardiovascular: RSR Respiratory: decreased breath sounds Abdomen: distended, non-tender, present bowel sounds, other Extremities: no cyanosis Laboratory Tests Test 06/25/19 03:41 06/25/19 06:00 06/25/19 07:50 White Blood Count 14.9 K/UL (4.8-10.8) H 16.4 K/UL (4.8-10.8) H Red Blood Count 2.11 M/UL (4.20-5.40) L 2.09 M/UL (4.20-5.40) L Hemoglobin 7.1 G/DL (12.0-16.0) L 7.5 G/DL (12.0-16.0) L Hematocrit 20.3 % (37.0-47.0) L 20.1 % (37.0-47.0) L Mean Corpuscular Volume 96 FL (80-99) 96 FL (80-99) Mean Corpuscular Hemoglobin 33.5 PG (27.0-31.0) H 35.8 PG (27.0-31.0) H Mean Corpuscular Hemoglobin Concent 34.8 G/DL (32.0-36.0) 37.1 G/DL (32.0-36.0) H Red Cell Distribution Width 18.5 % (11.6-14.8) H 19.1 % (11.6-14.8) H Platelet Count 110 K/UL (150-450) L 113 K/UL (150-450) L Mean Platelet Volume 5.6 FL (6.5-10.1) L 5.6 FL (6.5-10.1) L Neutrophils (%) (Auto) % (45.0-75.0) % (45.0-75.0) Lymphocytes (%) (Auto) % (20.0-45.0) % (20.0-45.0) Monocytes (%) (Auto) % (1.0-10.0) % (1.0-10.0) Eosinophils (%) (Auto) % (0.0-3.0) % (0.0-3.0) Basophils (%) (Auto) % (0.0-2.0) % (0.0-2.0) Differential Total Cells Counted 100 100 Neutrophils % (Manual) 84 % (45-75) H 88 % (45-75) H Lymphocytes % (Manual) 6 % (20-45) L 3 % (20-45) L Monocytes % (Manual) 6 % (1-10) 9 % (1-10) Eosinophils % (Manual) 0 % (0-3) 0 % (0-3) Basophils % (Manual) 0 % (0-2) 0 % (0-2) Band Neutrophils 4 % (0-8) 0 % (0-8) Platelet Estimate Decreased L Decreased L Platelet Morphology Normal Normal Anisocytosis 1+ 1+ Sodium Level 138 MMOL/L (136-145) Potassium Level 5.4 MMOL/L (3.5-5.1) H Chloride Level 106 MMOL/L (98-107) Carbon Dioxide Level 18 MMOL/L (21-32) L Anion Gap 14 mmol/L (5-15) Blood Urea Nitrogen 87 mg/dL (7-18) H Creatinine 1.9 MG/DL (0.55-1.30) H Estimat Glomerular Filtration Rate 26.3 mL/min (>60) Glucose Level 137 MG/DL (74-106) H Hemoglobin A1c 4.5 % (4.3-6.0) Uric Acid 12.7 MG/DL (2.6-7.2) H Calcium Level 7.8 MG/DL (8.5-10.1) L Phosphorus Level 4.8 MG/DL (2.5-4.9) Magnesium Level 3.3 MG/DL (1.8-2.4) H Total Bilirubin 2.3 MG/DL (0.2-1.0) H Direct Bilirubin 1.5 MG/DL (0.0-0.3) H Aspartate Amino Transf (AST/SGOT) 46 U/L (15-37) H Alanine Aminotransferase (ALT/SGPT) 19 U/L (12-78) Alkaline Phosphatase 94 U/L (46-116) Ammonia 19 umol/L (11-32) C-Reactive Protein, Quantitative 13.3 mg/dL (0.00-0.90) H Pro-B-Type Natriuretic Peptide 809 pg/mL (0-125) H Total Protein 6.4 G/DL (6.4-8.2) Albumin 2.7 G/DL (3.4-5.0) L Globulin 3.7 g/dL Albumin/Globulin Ratio 0.7 (1.0-2.7) L Vitamin B12 Level > 2000 PG/ML (193-986) H Folate 13.9 NG/ML (8.6-58.9) Urine Eosinophils None seen (NONE SEEN) Hypochromasia 1+ Plan Problems: (1) Abdominal pain Assessment & Plan: [age]-year-old female multiple medical comorbidities presented with abdominal discomfort noted to have abnormal LFTs leukocytosis. CT reviewed liver cirrhotic and there is a mass. Possibly carcinoma likely. HCC. Abdominal exam without peritonitis no acute surgical intervention indicated recommended at this time supportive treatment. Will follow with recommendations thank you tumor markers show afp 155, cea 26, ca19.9 1660 Consider comfort care/hospice can consider biopsy for diagnosis but unfortunately will unlikely help as advanced disease and given differential likely terminal Will follow with recommendations Covid results negative Lower thorax: Unremarkable lung bases. Intraperitoneal space: No free air. Gastrointestinal tract: Unremarkable. No dilation. Bones/joints: Degenerative spine findings and osteopenia. Tubes, lines and devices: Enteric tube with tip and proximal sideport below the gastroesophageal junction. IMPRESSION: 1. Enteric tube with tip and proximal sideport below the gastroesophageal junction. 2. Unremarkable lung bases. 3. No acute abnormality definitively seen. GI placed feeding tube cont feeds as tolerated Thank you The liver is cirrhotic. There is evidence of portal hypertension including splenomegaly and gastric varices. There is a mass in the left lobe, primarily in the lateral segments, but also extending medially. This measures 7.7 x 5 x 4.8 cm in greatest transverse, anteroposterior, and craniocaudal dimensions respectively. This is hypodense/hypoenhancing compared to relatively normal adjacent parenchyma in the portal venous phase. This could reflect early washout of a hepatocellular carcinoma, particularly given cirrhosis. A large metastasis is also possible. Cholelithiasis. 2.2 cm densely calcified stone in the dependent gallbladder. No biliary ductal dilation. Both kidneys demonstrate multiple hypodense lesions, which are too small to characterize. No hydronephrosis. There is no bowel obstruction or perforation. The appendix is not well seen. Leftward pelvic calcification may reflect a subserosal uterine fibroid. No abdominal aortic aneurysm. No acute fracture. IMPRESSION: 7.7 cm left lobe hepatic mass is concerning for hepatocellular carcinoma, particularly given cirrhosis. A large metastasis is also possible. Consider multiphase hepatic protocol MRI. Right renal hypodensities that are too small to characterize. Cholelithiasis. Bay Kearns Jun 25, 2019 18:54
--- NOTE | 2019-06-25 19:00 | NUR ---
NURSE NOTES: Dr. Childers made aware patient pulled out NG tube, re-inserted, X-ray result. Per MD, okay to continue Feeding. Order noted, entered, carried out.
--- NOTE | 2019-06-25 19:20 | NUR ---
HAND-OFF: Report given to AROLDO Aragon. Endorsed plan of care.
--- NOTE | 2019-06-25 19:30 | NUR ---
NURSE NOTES: Report received from AROLDO Rhodes. Pt confused, per report currently resting at this time,Pt was restless,with bilat soft wrist restraints placed 4/3 at 16:39. No resp distress, on 2L NC ,respirations even and unlabored. No signs of pain or discomfort, FLACC 0. SR to sinus tachycardia on the monitor Pt had NG tube reinserted as pt removed NG tube, placed in R naris and secured to nose. CXRay confirmed placement and NG tube feed Glucerna 1.2 initiated. Will gradually titrate to goal of 55 ml/h. Currently at 20 ml/h. Neal cath, patent, draining somewhat darkened korin urine,skin cool to touch, dry with IVF D5NS at 75 ml/hr to RFA,IV site intact,patent. Bed locked in lowest position, side rails up x3 HOB elevated,bed alarm on. will continue with plan of care.
--- NOTE | 2019-06-25 20:00 | NUR ---
NURSE NOTES: BP is running low following paracentesis, 7 liters removed. Site is clean, dry, intact, no bleeding at site
--- NOTE | 2019-06-25 20:00 | NUR ---
NURSE NOTES: Skin edematous and infiltrated on right hand wrist and arm. Discontinued IV and reinserted IV to left wrist 22 gauge. skin beneath restraints red and pink, placed abd pad under restraints and loosened
--- NOTE | 2019-06-25 20:10 | NUR ---
NURSE NOTES: Observed sacral discoloration, brown and boggy, suspected dti. Plan of care updated and wound care protocol for dti initiated. wound assessment completed
--- NOTE | 2019-06-25 20:15 | NUR ---
NURSE NOTES: Pt lab values are abnormal. Potassium is 5.4. No BM is several days, no kayexalate given, informed MD. Hgb is 7.5 up from 7.1 day previous. Navjot aware. Order for transfuse 1 unit if Hgb is <7 . Labs will be redrawn in the morning
[2019-06-25] MEDS ORDERED: Heparin 5000 units/ml inj SUBQ SCH (21:00)
--- NOTE | 2019-06-25 21:38 | Psych Consult Progress Note ---
Psychiatry Progress Note Psychiatry Progress Note Medications Current Medications Medications (Trade) Dose Ordered Sig/Idalia Route PRN Reason Start Time Stop Time Status Last Admin Dose Admin Acetaminophen (Tylenol) 500 mg Q6H PRN ORAL Mild Pain/Temp > 100.5 06/25/19 15:15 07/18/19 15:14 Ceftriaxone Sodium 1 gm/ Dextrose 55 ml @ 110 mls/hr Q24H IVPB 06/26/19 12:45 06/30/19 12:44 Dextrose (Dextrose 50%) 25 ml Q30M PRN IV Hypoglycemia 06/25/19 15:15 09/17/19 09:44 Dextrose (Dextrose 50%) 50 ml Q30M PRN IV Hypoglycemia 06/25/19 15:15 09/17/19 09:44 Dextrose/Sodium Chloride 1,000 ml @ 75 mls/hr [id number] IV 06/25/19 15:15 07/24/19 09:14 06/25/19 16:00 Guaifenesin/ Codeine Phosphate (Robitussin with codeine) 5 ml Q6H PRN ORAL For Cough 06/25/19 16:00 07/19/19 09:59 Heparin Sodium (Porcine) (Heparin 5000 units/ml) 5,000 units EVERY 12 HOURS SUBQ 06/25/19 21:00 08/06/19 20:59 Hydromorphone HCl (Dilaudid) 0.25 mg Q3H PRN IVP severe pain 06/25/19 16:00 06/26/19 18:59 Insulin Aspart (NovoLOG) BEFORE MEALS AND HS SUBQ 06/25/19 16:30 09/17/19 11:29 Megestrol Acetate (Megace) 400 mg DAILY ORAL 06/26/19 09:00 09/21/19 08:59 Naloxone HCl (Narcan) 0.2 mg Q2M PRN IVP respiratory depression 06/25/19 15:15 09/18/19 11:59 Olanzapine (ZyPREXA) 5 mg BID ORAL 06/25/19 18:00 08/06/19 15:22 Pantoprazole (Protonix) 40 mg Q12HR IVP 06/25/19 21:00 07/23/19 08:59 Propranolol HCl (Inderal) 15 mg Q8HR ORAL 06/25/19 22:00 07/21/19 13:59 Allergies: Coded Allergies: PENICILLINS (Verified Allergy, Unknown, 06/18/19) Objective Data Height (Feet): 5 Height (Inches): 3.00 Weight (Pounds): 136 Assessment/Plan Assessment/Plan: PLAN: 1. Lorazepam p.r.n. 2. Olanzapine 5 mg p.o. qhs 3. Continue to follow and readjust the medications. Per Holden MD Jun 25, 2019 21:38
--- NOTE | 2019-06-25 23:04 | General Progress Note ---
Assessment/Plan Problem List: (1) Dehydration ICD Codes: E86.0 - Dehydration SNOMED: 49435643 (2) Hypoxia ICD Codes: R09.02 - Hypoxemia SNOMED: 396610466 (3) Abdominal pain ICD Codes: R10.9 - Unspecified abdominal pain SNOMED: 67745045 Qualifiers: Qualified Codes: R10.9 - Unspecified abdominal pain (4) Pneumonia ICD Codes: J18.9 - Pneumonia, unspecified organism SNOMED: 595268123 Qualifiers: Qualified Codes: J18.9 - Pneumonia, unspecified organism (5) HCC (hepatocellular carcinoma) ICD Codes: C22.0 - Liver cell carcinoma SNOMED: 620475968 Assessment/Plan: s/p egd and ng tube placement by gi dr shital has large esoghapeal varice moniter for gi bleeding afebrile mets cancer HCC poor prognosis Subjective ROS Limited/Unobtainable: Yes Allergies: Coded Allergies: PENICILLINS (Verified Allergy, Unknown, 06/18/19) Objective Last 24 Hour Vital Signs Date Time Temp Pulse Resp B/P (MAP) Pulse Ox O2 Delivery O2 Flow Rate FiO2 06/25/19 21:44 92 89/44 06/25/19 16:00 104 06/25/19 16:00 Nasal Cannula 3.0 06/25/19 16:00 97.2 105 20 122/64 (83) 95 06/25/19 13:40 97.6 98 29 105/54 90 Nasal Cannula 3 06/25/19 13:20 101 32 106/55 90 Nasal Cannula 3 06/25/19 13:16 86 22 92 06/25/19 13:15 97 28 106/50 90 Nasal Cannula 3 06/25/19 13:10 97.9 96 26 105/51 90 Nasal Cannula 3 06/25/19 12:00 Nasal Cannula 3.0 06/25/19 12:00 107 06/25/19 11:49 97.2 107 20 146/73 (97) 92 06/25/19 08:00 Nasal Cannula 3.0 06/25/19 08:00 96.8 109 20 154/63 (93) 92 06/25/19 08:00 106 06/25/19 04:00 Nasal Cannula 3.0 06/25/19 04:00 108 06/25/19 04:00 98.0 92 20 109/59 (76) 95 06/25/19 00:00 97.4 105 20 115/60 (78) 99 06/25/19 00:00 Nasal Cannula 3.0 06/25/19 00:00 105 Intake and Output 06/24/19 06/25/19 19:00 07:00 Intake Total 1199 ml 549.167 ml Output Total 250 ml 200 ml Balance 949 ml 349.167 ml Intake Oral 60 ml 0 ml IV Total 1139 ml 549.167 ml Output Urine Total 250 ml 200 ml Laboratory Tests 06/25/19 03:41: White Blood Count 14.9H, Red Blood Count 2.11L, Hemoglobin 7.1L, Hematocrit 20.3L, Mean Corpuscular Volume 96, Mean Corpuscular Hemoglobin 33.5H, Mean Corpuscular Hemoglobin Concent 34.8, Red Cell Distribution Width 18.5H, Platelet Count 110L, Mean Platelet Volume 5.6L, Neutrophils (%) (Auto) , Lymphocytes (%) (Auto) , Monocytes (%) (Auto) , Eosinophils (%) (Auto) , Basophils (%) (Auto) , Differential Total Cells Counted 100, Neutrophils % ( Manual) 84H, Lymphocytes % (Manual) 6L, Monocytes % (Manual) 6, Eosinophils % ( Manual) 0, Basophils % (Manual) 0, Band Neutrophils 4, Platelet Estimate DecreasedL, Platelet Morphology Normal, Anisocytosis 1+, Sodium Level 138, Potassium Level 5.4H, Chloride Level 106, Carbon Dioxide Level 18L, Anion Gap 14 , Blood Urea Nitrogen 87H, Creatinine 1.9H, Estimat Glomerular Filtration Rate 26.3, Glucose Level 137H, Hemoglobin A1c 4.5, Uric Acid 12.7H, Calcium Level 7.8L, Phosphorus Level 4.8, Magnesium Level 3.3H, Total Bilirubin 2.3H, Direct Bilirubin 1.5H, Aspartate Amino Transf (AST/SGOT) 46H, Alanine Aminotransferase (ALT/SGPT) 19, Alkaline Phosphatase 94, Ammonia 19, C-Reactive Protein, Quantitative 13.3H, Pro-B-Type Natriuretic Peptide 809H, Total Protein 6.4, Albumin 2.7L, Globulin 3.7, Albumin/Globulin Ratio 0.7L, Vitamin B12 Level > 2000H, Folate 13.9 06/25/19 06:00: Urine Eosinophils None seen 06/25/19 07:50: White Blood Count 16.4H, Red Blood Count 2.09L, Hemoglobin 7.5L, Hematocrit 20.1L, Mean Corpuscular Volume 96, Mean Corpuscular Hemoglobin 35.8H, Mean Corpuscular Hemoglobin Concent 37.1H, Red Cell Distribution Width 19.1H, Platelet Count 113L, Mean Platelet Volume 5.6L, Neutrophils (%) (Auto) , Lymphocytes (%) (Auto) , Monocytes (%) (Auto) , Eosinophils (%) (Auto) , Basophils (%) (Auto) , Differential Total Cells Counted 100, Neutrophils % ( Manual) 88H, Lymphocytes % (Manual) 3L, Monocytes % (Manual) 9, Eosinophils % ( Manual) 0, Basophils % (Manual) 0, Band Neutrophils 0, Platelet Estimate DecreasedL, Platelet Morphology Normal, Anisocytosis 1+, Hypochromasia 1+ 06/25/19 15:45: Body Fluid Source Paracentesis, Body Fluid Volume 27, Body Fluid Appearance Bloody, Body Fluid RBC [id number], Body Fluid Total Nucleated Cells 75641, Body Fluid Polynuclear WBCs (%) 77, Body Fluid Mononuclear WBCs (%) 20, Body Fluid Mesothelial Cells (%) 3, Body Fluid Total Protein [Pending], Body Fluid Albumin [Pending] Height (Feet): 5 Height (Inches): 3.00 Weight (Pounds): 136 Era Acuña MD Jun 25, 2019 23:04
[2019-06-26] VITALS (7 sets, daily range): BP systolic 86–127; BP diastolic 42–75
[2019-06-26] MEDS: D5NS 1,000 ML IV SCH ×2 (04:50→18:02)
[2019-06-26] MEDS: Propranolol 10mg tab ORAL SCH ×3 (06:00→21:20)
[2019-06-26] MEDS: NovoLOG Insulin Flexpen SUBQ SCH ×4 (06:30→21:45)
--- NOTE | 2019-06-26 06:56 | NUR ---
NURSE NOTES: BP is now 106/56
--- NOTE | 2019-06-26 07:25 | NUR ---
NURSE NOTES: Dr Childers responded regarding NG tube feed and residual of 120 ml. Stopped for 1 hour, restarted at 10ml/h. He said he will follow up with the patient. Also is aware of yesterdays labs 5.4, Bel aware of hgb of 7.5, new labs pending. transfuse if hgb >7.0. informed dr Acuña as well and endorsed to am nurse.
--- NOTE | 2019-06-26 07:53 | General Progress Note ---
Assessment/Plan Assessment/Plan: Assessment/Plan Assessment/Plan: Assessment - Cirrhosis, ? etiology - Large liver mass, suspect CA - poor Px - lung nodules - abd distention, ascites -FTT -Anemia -UTI -DM -gallstones -GV Recommendations - Cirrhsis w/u (HBV, [facility], [facility]H, HHC) -low dose Propranolol -Repeat labs -tumor markers reviewed>>>? cholangio CA with liver mets -pending MRI or liver biopsy _ s/p EGD>>> gastric varices -s/p paracentesis 7 lit add albumin add lactulose NGTF add low dose reglan Subjective ROS Limited/Unobtainable: No Allergies: Coded Allergies: PENICILLINS (Verified Allergy, Unknown, 06/18/19) Objective Last 24 Hour Vital Signs Date Time Temp Pulse Resp B/P (MAP) Pulse Ox O2 Delivery O2 Flow Rate FiO2 06/26/19 06:48 104/55 (71) 06/26/19 06:00 82 104/55 06/26/19 04:01 Nasal Cannula 3.0 06/26/19 04:00 97.0 106 19 94/46 (62) 100 06/26/19 04:00 101 06/26/19 00:01 Nasal Cannula 3.0 06/26/19 00:00 97.3 85 18 90/50 (63) 100 06/26/19 00:00 100 06/25/19 21:44 92 89/44 06/25/19 21:01 Nasal Cannula 3.0 06/25/19 20:00 97.3 92 19 90/44 (59) 100 06/25/19 20:00 106 06/25/19 16:00 104 06/25/19 16:00 Nasal Cannula 3.0 06/25/19 16:00 97.2 105 20 122/64 (83) 95 06/25/19 13:40 97.6 98 29 105/54 90 Nasal Cannula 3 06/25/19 13:20 101 32 106/55 90 Nasal Cannula 3 06/25/19 13:16 86 22 92 06/25/19 13:15 97 28 106/50 90 Nasal Cannula 3 06/25/19 13:10 97.9 96 26 105/51 90 Nasal Cannula 3 06/25/19 12:00 Nasal Cannula 3.0 06/25/19 12:00 107 06/25/19 11:49 97.2 107 20 146/73 (97) 92 06/25/19 08:00 Nasal Cannula 3.0 06/25/19 08:00 96.8 109 20 154/63 (93) 92 06/25/19 08:00 106 Intake and Output 06/25/19 06/26/19 19:00 07:00 Intake Total 200 ml Output Total 7200 ml 500 ml Balance -7000 ml -500 ml IV Total 200 ml Output Urine Total 200 ml 500 ml Estimated Blood Loss 0 ml Other 7000 ml Laboratory Tests 06/25/19 15:45: Body Fluid Source Paracentesis, Body Fluid Volume 27, Body Fluid Appearance Bloody, Body Fluid RBC 466576, Body Fluid Total Nucleated Cells 85690, Body Fluid Polynuclear WBCs (%) 77, Body Fluid Mononuclear WBCs (%) 20, Body Fluid Mesothelial Cells (%) 3, Body Fluid Total Protein [Pending], Body Fluid Albumin [Pending] Height (Feet): 5 Height (Inches): 3.00 Weight (Pounds): 136 General Appearance: lethargic EENT: normal ENT inspection Neck: supple Cardiovascular: tachycardia Respiratory/Chest: decreased breath sounds Abdomen: normal bowel sounds, non tender, soft Extremities: non-tender Howard Childers MD Jun 26, 2019 07:53
--- NOTE | 2019-06-26 07:58 | NUR ---
HAND-OFF: Report given to AROLDO Mayorga.
[2019-06-26] MEDS ORDERED: Metoclopramide 10mg/2ml Inj IVP PRN (08:00)
[2019-06-26 08:24] LABS: HEMATOCRIT 15.9 % (37.0-47.0); MEAN CORPUSCULAR VOLUME 97 FL (80-99); PLATELET COUNT 64 K/UL (150-450); RED BLOOD COUNT 1.65 M/UL (4.20-5.40); RED CELL DISTRIBUTION WIDTH 17.9 % (11.6-14.8); WHITE BLOOD COUNT 9.5 K/UL (4.8-10.8)
--- NOTE | 2019-06-26 08:25 | NUR ---
NURSE NOTES: Received pt in bed, AAO x 1, confused. On NC 2L/min. IV on L wrist 22g noted, wrapped with kerlix, running D5NS @ 75 ml/hr. Patient on restraint but was pulling out the NGT. Put NGT back in, secured it with tape, and stopped the feeding. Ordered stat KUB. Side rails x 3. Bed in the lowest, locked, and alarm on. Call light within reach. Will continue to monitor
[2019-06-26 08:27] LABS: INR 1.6 (0.9-1.1)
[2019-06-26 08:39] LABS: HEMOGLOBIN 5.4 G/DL (12.0-16.0)
[2019-06-26] MEDS: Pantoprazole Inj IVP SCH ×2 (08:59→21:20)
[2019-06-26] MEDS: Lactulose 20gm/30ml UDC ORAL SCH ×3 (08:59→17:43)
[2019-06-26] MEDS ORDERED: Megace 400mg/10ml Susp ORAL SCH (09:00)
[2019-06-26 09:06] LABS: ALANINE AMINOTRANSFERASE 19 U/L (12-78); ALBUMIN 2.5 G/DL (3.4-5.0); ALBUMIN/GLOBULIN RATIO 0.8 (1.0-2.7); ALKALINE PHOSPHATASE 132 U/L (46-116); ANION GAP 16 mmol/L (5-15); ASPARTATE AMINO TRANSFERASE 50 U/L (15-37); BILIRUBIN,TOTAL 2.1 MG/DL (0.2-1.0); BLOOD UREA NITROGEN 94 mg/dL (7-18); CALCIUM 7.6 MG/DL (8.5-10.1); CARBON DIOXIDE 17 MMOL/L (21-32); CHLORIDE 110 MMOL/L (98-107); CREATININE 1.8 MG/DL (0.55-1.30); POTASSIUM 4.9 MMOL/L (3.5-5.1); SODIUM 142 MMOL/L (136-145)
[2019-06-26 09:07] LABS: BILIRUBIN,DIRECT 1.5 MG/DL (0.0-0.3)
--- NOTE | 2019-06-26 10:25 | Diagnostic Imaging Report ---
EXAM: XR Abdomen, 2 Views CLINICAL HISTORY: NGT TECHNIQUE: Frontal view of the abdomen/pelvis with upright view of the abdomen. COMPARISON: Abdominal x-rays dated 06/25/19, CT abdomen pelvis dated 06/18/19 FINDINGS: Intraperitoneal space: No free air. Gastrointestinal tract: Bowel gas pattern is unremarkable. No abnormal distention of small bowel or colonic loops. No luminal air- fluid levels. No evidence of pneumatosis intestinalis. Organs: Radiodensity in the right upper quadrant likely representing cholelithiasis, correlating with the findings on recent CT exam. Incidental note of coarse calcifications in the left pelvis, unchanged from the prior x-ray and correlating with presumed subserosal calcified fibroid seen on recent CT. Renal shadows are partially obscured by overlying bowel gas. Bones/joints: Unremarkable. Tubes, lines and devices: Nasogastric tube tip in the left upper quadrant, likely within the stomach body. IMPRESSION: 1. Nasogastric tube tip in the left upper quadrant, likely within the stomach body. 2. Cholelithiasis. 3. Coarse calcification in the left pelvis, likely a calcified fibroid
--- NOTE | 2019-06-26 10:26 | NUR ---
MARTÍNEZ COMPLETED 1000HRS. NF
[2019-06-26] MEDS ORDERED: D5NS 1000ml IV ONE (10:29)
[2019-06-26] MEDS ORDERED: NS 275ml ONE (10:29)
[2019-06-26] MEDS ORDERED: 1/2 NS 1000ml IV ONE (10:29)
[2019-06-26] MEDS ORDERED: Tubing IV Secondary IV ONE (10:29)
--- NOTE | 2019-06-26 10:56 | NUR ---
NURSE NOTES: Notified dr. Staples for pt's hgb 5.4 today. Got order to give 2 units of prbc. Order was put in and called blood bank. They said they will call back after checking the order. Will follow up
--- NOTE | 2019-06-26 10:56 | Nephrology Progress Note ---
Assessment/Plan Problem List: (1) LEANDRO (acute kidney injury) Assessment: Serum creatinine up to 1.9 (2) Hyperkalemia (3) Liver cirrhosis (4) Liver mass (5) Anemia Assessment - LEANDRO , serum creatinine [place] to 1.6, likely multifactorial, due to underlying liver disease, antibiotics, low blood pressure. - Hyperkalemia - Hypoalbuminemia - Cirrhosis, ? etiology - Large liver mass, suspect CA - poor Px - lung nodules - abd distention, likely ascites - r/o COVID -FTT -Anemia -UTI -DM -gallstones Plan Due for transfusion today Hyperkalemia resolved. Serum creatinine is leveling. Slow saline hydration, Albumin 5% bolus Neal catheter Avoid nephrotoxic's Follow-up with renal parameters Urine studies Per orders Poor prognosis Subjective ROS Limited/Unobtainable: No Constitutional: Reports: malaise, weakness Objective Objective Last 24 Hour Vital Signs Date Time Temp Pulse Resp B/P (MAP) Pulse Ox O2 Delivery O2 Flow Rate FiO2 06/26/19 08:16 Nasal Cannula 3.0 06/26/19 08:00 102 06/26/19 08:00 98.8 103 18 89/42 (58) 100 06/26/19 06:48 104/55 (71) 06/26/19 06:00 82 104/55 06/26/19 04:01 Nasal Cannula 3.0 06/26/19 04:00 97.0 106 19 94/46 (62) 100 06/26/19 04:00 101 06/26/19 00:01 Nasal Cannula 3.0 06/26/19 00:00 97.3 85 18 90/50 (63) 100 06/26/19 00:00 100 06/25/19 21:44 92 89/44 06/25/19 21:01 Nasal Cannula 3.0 06/25/19 20:00 97.3 92 19 90/44 (59) 100 06/25/19 20:00 106 06/25/19 16:00 104 06/25/19 16:00 Nasal Cannula 3.0 06/25/19 16:00 97.2 105 20 122/64 (83) 95 06/25/19 13:40 97.6 98 29 105/54 90 Nasal Cannula 3 06/25/19 13:20 101 32 106/55 90 Nasal Cannula 3 06/25/19 13:16 86 22 92 06/25/19 13:15 97 28 106/50 90 Nasal Cannula 3 06/25/19 13:10 97.9 96 26 105/51 90 Nasal Cannula 3 06/25/19 12:00 Nasal Cannula 3.0 06/25/19 12:00 107 06/25/19 11:49 97.2 107 20 146/73 (97) 92 Intake and Output 06/25/19 06/26/19 19:00 07:00 Intake Total 200 ml Output Total 7200 ml 500 ml Balance -7000 ml -500 ml IV Total 200 ml Output Urine Total 200 ml 500 ml Estimated Blood Loss 0 ml Other 7000 ml Laboratory Tests 06/25/19 15:45: Body Fluid Source Paracentesis, Body Fluid Volume 27, Body Fluid Appearance Bloody, Body Fluid RBC 404933, Body Fluid Total Nucleated Cells 59127, Body Fluid Polynuclear WBCs (%) 77, Body Fluid Mononuclear WBCs (%) 20, Body Fluid Mesothelial Cells (%) 3, Body Fluid Total Protein [Pending], Body Fluid Albumin [Pending] 06/26/19 07:05: White Blood Count 9.5, Red Blood Count 1.65L, Hemoglobin 5.4*L, Hematocrit 15.9L , Mean Corpuscular Volume 97, Mean Corpuscular Hemoglobin 32.6H, Mean Corpuscular Hemoglobin Concent 33.7, Red Cell Distribution Width 17.9H, Platelet Count 64L, Mean Platelet Volume 5.7L, Neutrophils (%) (Auto) , Lymphocytes (%) (Auto) , Monocytes (%) (Auto) , Eosinophils (%) (Auto) , Basophils (%) (Auto) , Differential Total Cells Counted 100, Neutrophils % ( Manual) 79H, Lymphocytes % (Manual) 10L, Monocytes % (Manual) 11H, Eosinophils % (Manual) 0, Basophils % (Manual) 0, Band Neutrophils 0, Platelet Estimate DecreasedL, Platelet Morphology Normal, Polychromasia 1+, Hypochromasia 1+, Anisocytosis 1+, Prothrombin Time 16.7H, Prothromb Time International Ratio 1.6H , Sodium Level 142, Potassium Level 4.9, Chloride Level 110H, Carbon Dioxide Level 17L, Anion Gap 16H, Blood Urea Nitrogen 94H, Creatinine 1.8H, Estimat Glomerular Filtration Rate 28.0, Glucose Level 195H, Calcium Level 7.6L, Total Bilirubin 2.1H, Direct Bilirubin 1.5H, Aspartate Amino Transf (AST/SGOT) 50H, Alanine Aminotransferase (ALT/SGPT) 19, Alkaline Phosphatase 132H, Total Protein 5.5L, Albumin 2.5L, Globulin 3.0, Albumin/Globulin Ratio 0.8L Height (Feet): 5 Height (Inches): 3.00 Weight (Pounds): 136 General Appearance: no apparent distress, lethargic Cardiovascular: tachycardia Respiratory/Chest: decreased breath sounds Abdomen: distended Alex Aguilar MD Jun 26, 2019 10:56
--- NOTE | 2019-06-26 11:48 | Pulmonology Progress Note ---
Assessment/Plan Assessment/Plan IMPRESSION: 1. Probable metastatic pulmonary disease. 2. Negative COVID-19. 3. Hepatocellular mass. Likely carcinoma 4. Schizophrenia. 5. Diabetes mellitus. DISCUSSION: Continue low flow O2 Discussed with Gastroenterology. Await results of repeat laboratory testing. I will follow carefully. Trip Martines M.D. Subjective Interval Events: None new Constitutional: Reports: no symptoms HEENT: Repors: no symptoms Respiratory: Reports: no symptoms Cardiovascular: Reports: no symptoms Gastrointestinal/Abdominal: Reports: no symptoms Allergies: Coded Allergies: PENICILLINS (Verified Allergy, Unknown, 06/18/19) Objective Last 24 Hour Vital Signs Date Time Temp Pulse Resp B/P (MAP) Pulse Ox O2 Delivery O2 Flow Rate FiO2 06/26/19 08:16 Nasal Cannula 3.0 06/26/19 08:00 102 06/26/19 08:00 98.8 103 18 89/42 (58) 100 06/26/19 06:48 104/55 (71) 06/26/19 06:00 82 104/55 06/26/19 04:01 Nasal Cannula 3.0 06/26/19 04:00 97.0 106 19 94/46 (62) 100 06/26/19 04:00 101 06/26/19 00:01 Nasal Cannula 3.0 06/26/19 00:00 97.3 85 18 90/50 (63) 100 06/26/19 00:00 100 06/25/19 21:44 92 89/44 06/25/19 21:01 Nasal Cannula 3.0 06/25/19 20:00 97.3 92 19 90/44 (59) 100 06/25/19 20:00 106 06/25/19 16:00 104 06/25/19 16:00 Nasal Cannula 3.0 06/25/19 16:00 97.2 105 20 122/64 (83) 95 06/25/19 13:40 97.6 98 29 105/54 90 Nasal Cannula 3 06/25/19 13:20 101 32 106/55 90 Nasal Cannula 3 06/25/19 13:16 86 22 92 06/25/19 13:15 97 28 106/50 90 Nasal Cannula 3 06/25/19 13:10 97.9 96 26 105/51 90 Nasal Cannula 3 06/25/19 12:00 Nasal Cannula 3.0 06/25/19 12:00 107 06/25/19 11:49 97.2 107 20 146/73 (97) 92 Intake and Output 06/25/19 06/26/19 19:00 07:00 Intake Total 200 ml Output Total 7200 ml 500 ml Balance -7000 ml -500 ml IV Total 200 ml Output Urine Total 200 ml 500 ml Estimated Blood Loss 0 ml Other 7000 ml General Appearance: no acute distress HEENT: normocephalic Respiratory/Chest: chest wall non-tender, lungs clear Cardiovascular: normal peripheral pulses Abdomen: normal bowel sounds Laboratory Tests 06/25/19 15:45: Body Fluid Source Paracentesis, Body Fluid Volume 27, Body Fluid Appearance Bloody, Body Fluid RBC [id number], Body Fluid Total Nucleated Cells 48906, Body Fluid Polynuclear WBCs (%) 77, Body Fluid Mononuclear WBCs (%) 20, Body Fluid Mesothelial Cells (%) 3, Body Fluid Total Protein [Pending], Body Fluid Albumin [Pending] 06/26/19 07:05: White Blood Count 9.5, Red Blood Count 1.65L, Hemoglobin 5.4*L, Hematocrit 15.9L , Mean Corpuscular Volume 97, Mean Corpuscular Hemoglobin 32.6H, Mean Corpuscular Hemoglobin Concent 33.7, Red Cell Distribution Width 17.9H, Platelet Count 64L, Mean Platelet Volume 5.7L, Neutrophils (%) (Auto) , Lymphocytes (%) (Auto) , Monocytes (%) (Auto) , Eosinophils (%) (Auto) , Basophils (%) (Auto) , Differential Total Cells Counted 100, Neutrophils % ( Manual) 79H, Lymphocytes % (Manual) 10L, Monocytes % (Manual) 11H, Eosinophils % (Manual) 0, Basophils % (Manual) 0, Band Neutrophils 0, Platelet Estimate DecreasedL, Platelet Morphology Normal, Polychromasia 1+, Hypochromasia 1+, Anisocytosis 1+, Prothrombin Time 16.7H, Prothromb Time International Ratio 1.6H , Sodium Level 142, Potassium Level 4.9, Chloride Level 110H, Carbon Dioxide Level 17L, Anion Gap 16H, Blood Urea Nitrogen 94H, Creatinine 1.8H, Estimat Glomerular Filtration Rate 28.0, Glucose Level 195H, Calcium Level 7.6L, Total Bilirubin 2.1H, Direct Bilirubin 1.5H, Aspartate Amino Transf (AST/SGOT) 50H, Alanine Aminotransferase (ALT/SGPT) 19, Alkaline Phosphatase 132H, Total Protein 5.5L, Albumin 2.5L, Globulin 3.0, Albumin/Globulin Ratio 0.8L Current Medications Medications (Trade) Dose Ordered Sig/[place] Route PRN Reason Start Time Stop Time Status Last Admin Dose Admin Acetaminophen (Tylenol) 500 mg Q6H PRN ORAL Mild Pain/Temp > 100.5 06/25/19 15:15 07/18/19 15:14 Ceftriaxone Sodium 1 gm/ Dextrose 55 ml @ 110 mls/hr Q24H IVPB 06/26/19 12:45 06/30/19 12:44 Dextrose (Dextrose 50%) 25 ml Q30M PRN IV Hypoglycemia 06/25/19 15:15 09/17/19 09:44 Dextrose (Dextrose 50%) 50 ml Q30M PRN IV Hypoglycemia 06/25/19 15:15 09/17/19 09:44 Dextrose/Sodium Chloride 1,000 ml @ 75 mls/hr [id number] IV 06/25/19 15:15 07/24/19 09:14 06/26/19 04:50 Guaifenesin/ Codeine Phosphate (Robitussin with codeine) 5 ml Q6H PRN ORAL For Cough 06/25/19 16:00 07/19/19 09:59 Hydromorphone HCl (Dilaudid) 0.25 mg Q3H PRN IVP severe pain 06/25/19 16:00 06/26/19 18:59 06/26/19 09:34 Insulin Aspart (NovoLOG) BEFORE MEALS AND HS SUBQ 06/25/19 16:30 09/17/19 11:29 06/26/19 11:35 Lactulose (Cephulac) 20 gm THREE TIMES A DAY ORAL 06/26/19 09:00 07/26/19 08:59 06/26/19 08:59 Metoclopramide HCl (Reglan) 2.5 mg Q6H PRN IVP Nausea & Vomiting 06/26/19 08:00 07/26/19 07:59 Naloxone HCl (Narcan) 0.2 mg Q2M PRN IVP respiratory depression 06/25/19 15:15 09/18/19 11:59 Olanzapine (ZyPREXA) 5 mg BID ORAL 06/25/19 18:00 08/06/19 15:22 06/26/19 08:59 Pantoprazole (Protonix) 40 mg Q12HR IVP 06/25/19 21:00 07/23/19 08:59 06/26/19 08:59 Propranolol HCl (Inderal) 15 mg Q8HR ORAL 06/25/19 22:00 07/21/19 13:59 Trip Martines MD Jun 26, 2019 11:48
[2019-06-26] MEDS: cefTRIAXone 1 GM in D5W 55 ML IVPB SCH (14:44)
--- NOTE | 2019-06-26 14:51 | Surgery Progress Note ---
Surgery Progress Note Subjective Additional Comments ill appearing wbc resolved h/h anemia severe prbc Objective Last 24 Hour Vital Signs Date Time Temp Pulse Resp B/P (MAP) Pulse Ox O2 Delivery O2 Flow Rate FiO2 06/26/19 13:20 104 86/48 06/26/19 12:00 104 06/26/19 12:00 97.5 105 20 86/48 (61) 98 06/26/19 08:16 Nasal Cannula 3.0 06/26/19 08:00 102 06/26/19 08:00 98.8 103 18 89/42 (58) 100 06/26/19 06:48 104/55 (71) 06/26/19 06:00 82 104/55 06/26/19 04:01 Nasal Cannula 3.0 06/26/19 04:00 97.0 106 19 94/46 (62) 100 06/26/19 04:00 101 06/26/19 00:01 Nasal Cannula 3.0 06/26/19 00:00 97.3 85 18 90/50 (63) 100 06/26/19 00:00 100 06/25/19 21:44 92 89/44 06/25/19 21:01 Nasal Cannula 3.0 06/25/19 20:00 97.3 92 19 90/44 (59) 100 06/25/19 20:00 106 06/25/19 16:00 104 06/25/19 16:00 Nasal Cannula 3.0 06/25/19 16:00 97.2 105 20 122/64 (83) 95 I&O Intake and Output 06/25/19 06/26/19 19:00 07:00 Intake Total 200 ml Output Total 7200 ml 500 ml Balance -7000 ml -500 ml IV Total 200 ml Output Urine Total 200 ml 500 ml Estimated Blood Loss 0 ml Other 7000 ml Dressing: other Wound: other Drains: other Cardiovascular: RSR Respiratory: decreased breath sounds Abdomen: soft, distended, non-tender, decreased bowel sounds Extremities: edema, no tenderness, no cyanosis Laboratory Tests Test 06/25/19 15:45 06/26/19 07:05 Body Fluid Source Paracentesis Body Fluid Volume 27 mL Body Fluid Appearance Bloody (Clear) Body Fluid RBC 765231 /CUMM Body Fluid Total Nucleated Cells 02647 /CUMM Body Fluid Polynuclear WBCs (%) 77 % Body Fluid Mononuclear WBCs (%) 20 % Body Fluid Mesothelial Cells (%) 3 % Body Fluid Total Protein Pending Body Fluid Albumin Pending White Blood Count 9.5 K/UL (4.8-10.8) Red Blood Count 1.65 M/UL (4.20-5.40) L Hemoglobin 5.4 G/DL (12.0-16.0) *L Hematocrit 15.9 % (37.0-47.0) L Mean Corpuscular Volume 97 FL (80-99) Mean Corpuscular Hemoglobin 32.6 PG (27.0-31.0) H Mean Corpuscular Hemoglobin Concent 33.7 G/DL (32.0-36.0) Red Cell Distribution Width 17.9 % (11.6-14.8) H Platelet Count 64 K/UL (150-450) L Mean Platelet Volume 5.7 FL (6.5-10.1) L Neutrophils (%) (Auto) % (45.0-75.0) Lymphocytes (%) (Auto) % (20.0-45.0) Monocytes (%) (Auto) % (1.0-10.0) Eosinophils (%) (Auto) % (0.0-3.0) Basophils (%) (Auto) % (0.0-2.0) Differential Total Cells Counted 100 Neutrophils % (Manual) 79 % (45-75) H Lymphocytes % (Manual) 10 % (20-45) L Monocytes % (Manual) 11 % (1-10) H Eosinophils % (Manual) 0 % (0-3) Basophils % (Manual) 0 % (0-2) Band Neutrophils 0 % (0-8) Platelet Estimate Decreased L Platelet Morphology Normal Polychromasia 1+ Hypochromasia 1+ Anisocytosis 1+ Prothrombin Time 16.7 SEC (9.30-11.50) H Prothromb Time International Ratio 1.6 (0.9-1.1) H Sodium Level 142 MMOL/L (136-145) Potassium Level 4.9 MMOL/L (3.5-5.1) Chloride Level 110 MMOL/L (98-107) H Carbon Dioxide Level 17 MMOL/L (21-32) L Anion Gap 16 mmol/L (5-15) H Blood Urea Nitrogen 94 mg/dL (7-18) H Creatinine 1.8 MG/DL (0.55-1.30) H Estimat Glomerular Filtration Rate 28.0 mL/min (>60) Glucose Level 195 MG/DL (74-106) H Calcium Level 7.6 MG/DL (8.5-10.1) L Total Bilirubin 2.1 MG/DL (0.2-1.0) H Direct Bilirubin 1.5 MG/DL (0.0-0.3) H Aspartate Amino Transf (AST/SGOT) 50 U/L (15-37) H Alanine Aminotransferase (ALT/SGPT) 19 U/L (12-78) Alkaline Phosphatase 132 U/L (46-116) H Total Protein 5.5 G/DL (6.4-8.2) L Albumin 2.5 G/DL (3.4-5.0) L Globulin 3.0 g/dL Albumin/Globulin Ratio 0.8 (1.0-2.7) L Plan Problems: (1) Abdominal pain Assessment & Plan: [age]-year-old female multiple medical comorbidities presented with abdominal discomfort noted to have abnormal LFTs leukocytosis. CT reviewed liver cirrhotic and there is a mass. Possibly carcinoma likely. HCC. Abdominal exam without peritonitis no acute surgical intervention indicated recommended at this time supportive treatment. Will follow with recommendations thank you tumor markers show afp 155, cea 26, ca19.9 1660 Consider comfort care/hospice can consider biopsy for diagnosis but unfortunately will unlikely help as advanced disease and given differential likely terminal Will follow with recommendations Covid results negative Lower thorax: Unremarkable lung bases. Intraperitoneal space: No free air. Gastrointestinal tract: Unremarkable. No dilation. Bones/joints: Degenerative spine findings and osteopenia. Tubes, lines and devices: Enteric tube with tip and proximal sideport below the gastroesophageal junction. IMPRESSION: 1. Enteric tube with tip and proximal sideport below the gastroesophageal junction. 2. Unremarkable lung bases. 3. No acute abnormality definitively seen. GI placed feeding tube cont feeds as tolerated severe anemia - gi blood loss? transfuse as per heme trend will await path Thank you The liver is cirrhotic. There is evidence of portal hypertension including splenomegaly and gastric varices. There is a mass in the left lobe, primarily in the lateral segments, but also extending medially. This measures 7.7 x 5 x 4.8 cm in greatest transverse, anteroposterior, and craniocaudal dimensions respectively. This is hypodense/hypoenhancing compared to relatively normal adjacent parenchyma in the portal venous phase. This could reflect early washout of a hepatocellular carcinoma, particularly given cirrhosis. A large metastasis is also possible. Cholelithiasis. 2.2 cm densely calcified stone in the dependent gallbladder. No biliary ductal dilation. Both kidneys demonstrate multiple hypodense lesions, which are too small to characterize. No hydronephrosis. There is no bowel obstruction or perforation. The appendix is not well seen. Leftward pelvic calcification may reflect a subserosal uterine fibroid. No abdominal aortic aneurysm. No acute fracture. IMPRESSION: 7.7 cm left lobe hepatic mass is concerning for hepatocellular carcinoma, particularly given cirrhosis. A large metastasis is also possible. Consider multiphase hepatic protocol MRI. Right renal hypodensities that are too small to characterize. Cholelithiasis. [place] Kearns Jun 26, 2019 14:51
--- NOTE | 2019-06-26 19:07 | NUR ---
NURSE NOTES: Received report from AROLDO Squires. Patient alert, awake, and restless. Patient on restraints. IV checked; intact and flushed. No signs of erythema, bleeding, or infiltration. AOx1. On 2L oxygen per nasal cannula. VS within normal limits. Bed in lowest position. Side rails raised x2. Call light placed within reach. Will continue to monitor.
--- NOTE | 2019-06-26 19:10 | NUR ---
HAND-OFF: Report given to AROLDO Dominguez.
--- NOTE | 2019-06-26 20:06 | General Progress Note ---
Assessment/Plan Problem List: (1) Dehydration ICD Codes: E86.0 - Dehydration SNOMED: 17768903 (2) Hypoxia ICD Codes: R09.02 - Hypoxemia SNOMED: 564201740 (3) Abdominal pain ICD Codes: R10.9 - Unspecified abdominal pain SNOMED: 26458799 Qualifiers: Qualified Codes: R10.9 - Unspecified abdominal pain (4) Pneumonia ICD Codes: J18.9 - Pneumonia, unspecified organism SNOMED: 646670695 Qualifiers: Qualified Codes: J18.9 - Pneumonia, unspecified organism (5) HCC (hepatocellular carcinoma) ICD Codes: C22.0 - Liver cell carcinoma SNOMED: 971906184 Assessment/Plan: agitated at time not hypoxic weak confused has large esoghapeal varice moniter for gi bleeding afebrile mets cancer HCC poor prognosis Subjective ROS Limited/Unobtainable: Yes Allergies: Coded Allergies: PENICILLINS (Verified Allergy, Unknown, 06/18/19) Objective Last 24 Hour Vital Signs Date Time Temp Pulse Resp B/P (MAP) Pulse Ox O2 Delivery O2 Flow Rate FiO2 06/26/19 16:00 100 06/26/19 16:00 97.7 102 18 102/53 (69) 99 06/26/19 13:20 104 86/48 06/26/19 12:00 104 06/26/19 12:00 97.5 105 20 86/48 (61) 98 06/26/19 08:16 Nasal Cannula 3.0 06/26/19 08:00 102 06/26/19 08:00 98.8 103 18 89/42 (58) 100 06/26/19 06:48 104/55 (71) 06/26/19 06:00 82 104/55 06/26/19 04:01 Nasal Cannula 3.0 06/26/19 04:00 97.0 106 19 94/46 (62) 100 06/26/19 04:00 101 06/26/19 00:01 Nasal Cannula 3.0 06/26/19 00:00 97.3 85 18 90/50 (63) 100 06/26/19 00:00 100 06/25/19 21:44 92 89/44 06/25/19 21:01 Nasal Cannula 3.0 Intake and Output 06/25/19 06/26/19 19:00 07:00 Intake Total 200 ml Output Total 7200 ml 500 ml Balance -7000 ml -500 ml IV Total 200 ml Output Urine Total 200 ml 500 ml Estimated Blood Loss 0 ml Other 7000 ml Laboratory Tests 06/26/19 07:05: White Blood Count 9.5, Red Blood Count 1.65L, Hemoglobin 5.4*L, Hematocrit 15.9L , Mean Corpuscular Volume 97, Mean Corpuscular Hemoglobin 32.6H, Mean Corpuscular Hemoglobin Concent 33.7, Red Cell Distribution Width 17.9H, Platelet Count 64L, Mean Platelet Volume 5.7L, Neutrophils (%) (Auto) , Lymphocytes (%) (Auto) , Monocytes (%) (Auto) , Eosinophils (%) (Auto) , Basophils (%) (Auto) , Differential Total Cells Counted 100, Neutrophils % ( Manual) 79H, Lymphocytes % (Manual) 10L, Monocytes % (Manual) 11H, Eosinophils % (Manual) 0, Basophils % (Manual) 0, Band Neutrophils 0, Platelet Estimate DecreasedL, Platelet Morphology Normal, Polychromasia 1+, Hypochromasia 1+, Anisocytosis 1+, Prothrombin Time 16.7H, Prothromb Time International Ratio 1.6H , Sodium Level 142, Potassium Level 4.9, Chloride Level 110H, Carbon Dioxide Level 17L, Anion Gap 16H, Blood Urea Nitrogen 94H, Creatinine 1.8H, Estimat Glomerular Filtration Rate 28.0, Glucose Level 195H, Calcium Level 7.6L, Total Bilirubin 2.1H, Direct Bilirubin 1.5H, Aspartate Amino Transf (AST/SGOT) 50H, Alanine Aminotransferase (ALT/SGPT) 19, Alkaline Phosphatase 132H, Total Protein 5.5L, Albumin 2.5L, Globulin 3.0, Albumin/Globulin Ratio 0.8L Height (Feet): 5 Height (Inches): 3.00 Weight (Pounds): 136 Era Acuña MD Jun 26, 2019 20:06
[2019-06-27] VITALS: BP 99/53
--- NOTE | 2019-06-27 01:00 | NUR ---
NURSE NOTES: Patient pulled out her NG tube while she was being changed. A new NG tube was placed. Stat KUB ordered to confirm placement. MD aware. Will continue to monitor.
--- NOTE | 2019-06-27 01:55 | Diagnostic Imaging Report ---
EXAM: XR Abdomen, 2 Views CLINICAL HISTORY: LINE TECHNIQUE: Frontal view of the abdomen/pelvis with upright view of the abdomen. COMPARISON: CT 06/18/2019 FINDINGS: Lower thorax: Retrocardiac opacity representing atelectasis or consolidation mildly improved since comparison ETT. Intraperitoneal space: No free air. Gastrointestinal tract: Unremarkable. No dilation. Organs: Cholelithiasis. Bones/joints: Unremarkable. Tubes, lines and devices: No enteric tube, proximal side port at the gastric esophageal junction. Recommend advancement of enteric tube at least 5-10 centimeters to ensure gastric compression. IMPRESSION: 1. No enteric tube, proximal side port at the gastric esophageal junction. 2. Recommend advancement of enteric tube at least 5-10 centimeters to ensure gastric compression. 3. Retrocardiac opacity representing atelectasis or consolidation mildly improved since comparison ETT. <MYCVCSECTION> Communications: 06/27/19 02:09 Verify Receipt with Nurse Verified receipt with [employer]her[employer]ene[employer] for AROLDO Murdock on 06/26 02:09 (-07:00)
--- NOTE | 2019-06-27 02:45 | NUR ---
NURSE NOTES: NG tube advanced as recommended by CXR results. Awaiting second round of CXR for confirmation of placement. Patient cleaned; kept dry and comfortable. Bed in lowest position. Call light placed within reach. Will continue to monitor.
[2019-06-27 04:00] VITALS: BP 150/95
--- NOTE | 2019-06-27 04:23 | Diagnostic Imaging Report ---
EXAM: XR Chest, 1 View CLINICAL HISTORY: NGT TECHNIQUE: Frontal view of the chest. COMPARISON: 06/27/2019. FINDINGS: Lungs: There is decreased inspiratory effort with vascular crowding. There is left perihilar atelectasis, remainder of the lung funes are clear. Pleural space: No pleural abnormality. No pneumothorax. Heart: Unremarkable. No cardiomegaly. Mediastinum: Unremarkable. Bones/joints: Degenerative disease of the shoulders. Tubes, lines and devices: Nasogastric tube in place with the tip in the stomach. IMPRESSION: Left perihilar atelectasis. Decreased inspiration with crowding of markings otherwise no acute process identified.
--- NOTE | 2019-06-27 05:03 | NUR ---
NURSE NOTES: CXR confirmed NG placement in the stomach.
--- NOTE | 2019-06-27 05:37 | NUR ---
NURSE NOTES: Patient pulled out her NG tube. New NG tube placed. Awaiting CXR for confirmation of placement.
[2019-06-27] MEDS: Propranolol 10mg tab ORAL SCH ×3 (05:47→22:00)
[2019-06-27] MEDS: NovoLOG Insulin Flexpen SUBQ SCH ×4 (05:55→21:27)
[2019-06-27] MEDS: D5NS 1,000 ML IV SCH (06:30)
--- NOTE | 2019-06-27 06:56 | Diagnostic Imaging Report ---
EXAM: XR Chest, 1 View CLINICAL HISTORY: NGT TECHNIQUE: Frontal view of the chest. COMPARISON: 06/27/2019. FINDINGS: Lungs: There is decreased inspiratory effort. There is mild right basilar and left perihilar atelectasis. Pleural space: Unremarkable. No pneumothorax. Heart: Unremarkable. No cardiomegaly. Mediastinum: Unremarkable. Bones/joints: Degenerative disease of the shoulders and spine. Tubes, lines and devices: A nasogastric tube is seen in place with the tip at the level of the gastric body. IMPRESSION: 1. Mild bilateral atelectasis as described. No acute cardiopulmonary disease. 2. Nasogastric tube in place.
--- NOTE | 2019-06-27 07:22 | NUR ---
HAND-OFF: Report given to AROLDO Brown. Patient stable. NG tube in place.
--- NOTE | 2019-06-27 07:59 | NUR ---
NURSE NOTES:Handoff received from AROLDO Dominguez. Patient received sleeping in bed, no acute signs of distress noted. Patient has dominguez attached to side of bed, patent and draining. Patient has NG tube, confirmed via x-ray but will get order from MD before using. Bed in the low and locked position with call light within reach. IV sites clean dry and intact, running prescribed fluids. Will continue to monitor patient.
[2019-06-27 08:00] VITALS: BP 119/67
--- NOTE | 2019-06-27 08:24 | NUR ---
NURSE NOTES:Contacted and spoke to Dr Childers to confirm that it is ok to use NG tube. X-ray confirmed placement. MD gave TO/RB order, okay to use NGT. Will start NGT feeding of Glucerna 1.2 at 15ml/hr.
[2019-06-27] MEDS: Pantoprazole Inj IVP SCH ×2 (08:55→21:18)
[2019-06-27] MEDS: Lactulose 20gm/30ml UDC ORAL SCH ×3 (08:56→17:14)
[2019-06-27 08:57] LABS: HEMATOCRIT 20.7 % (37.0-47.0); HEMOGLOBIN 8.9 G/DL (12.0-16.0); MEAN CORPUSCULAR VOLUME 95 FL (80-99); PLATELET COUNT 51 K/UL (150-450); RED BLOOD COUNT 2.18 M/UL (4.20-5.40); RED CELL DISTRIBUTION WIDTH 19.8 % (11.6-14.8); WHITE BLOOD COUNT 13.7 K/UL (4.8-10.8)
[2019-06-27 09:04] LABS: PHOSPHORUS 2.3 MG/DL (2.5-4.9)
[2019-06-27 09:06] LABS: ALANINE AMINOTRANSFERASE 18 U/L (12-78); ALBUMIN 2.8 G/DL (3.4-5.0); ALBUMIN/GLOBULIN RATIO 0.9 (1.0-2.7); ALKALINE PHOSPHATASE 134 U/L (46-116); ANION GAP 13 mmol/L (5-15); ASPARTATE AMINO TRANSFERASE 56 U/L (15-37); BILIRUBIN,TOTAL 4.2 MG/DL (0.2-1.0); BLOOD UREA NITROGEN 79 mg/dL (7-18); CARBON DIOXIDE 20 MMOL/L (21-32); CHLORIDE 113 MMOL/L (98-107); CREATININE 1.4 MG/DL (0.55-1.30); POTASSIUM 3.9 MMOL/L (3.5-5.1); SODIUM 146 MMOL/L (136-145)
[2019-06-27 09:31] LABS: BILIRUBIN,DIRECT 2.5 MG/DL (0.0-0.3)
--- NOTE | 2019-06-27 10:05 | NUR ---
NURSE NOTES: patient managed to get out of restraint and pull NG tube out. Will replace NG tube and order another Xray to confirm placement.
--- NOTE | 2019-06-27 10:22 | General Progress Note ---
Assessment/Plan Assessment/Plan: Assessment/Plan Assessment/Plan: Assessment - Cirrhosis, ? etiology - Large liver mass, suspect CA - poor Px - lung nodules - abd distention, ascites -FTT -Anemia -UTI -DM -gallstones -GV Recommendations - Cirrhsis w/u ([facility], [facility], [facility], [facility]) -low dose Propranolol -Repeat labs -tumor markers reviewed>>>? cholangio CA with liver mets -pending MRI or liver biopsy _ s/p EGD>>> gastric varices -s/p paracentesis 7 lit albumin lactulose NGTF low dose reglan s/p 2 units PRBC without overt GIB Subjective ROS Limited/Unobtainable: No Allergies: Coded Allergies: PENICILLINS (Verified Allergy, Unknown, 06/18/19) Objective Last 24 Hour Vital Signs Date Time Temp Pulse Resp B/P (MAP) Pulse Ox O2 Delivery O2 Flow Rate FiO2 06/27/19 09:00 Nasal Cannula 3.0 06/27/19 08:00 97.6 91 19 119/67 (84) 94 06/27/19 05:47 92 150/95 06/27/19 04:00 97.6 81 19 150/95 (113) 91 06/27/19 04:00 92 06/27/19 00:00 93 06/27/19 00:00 98.0 80 17 99/53 (68) 99 06/26/19 21:20 129 127/75 06/26/19 21:00 Nasal Cannula 3.0 06/26/19 20:00 108 06/26/19 20:00 97.3 129 19 127/75 (92) 99 06/26/19 16:00 100 06/26/19 16:00 97.7 102 18 102/53 (69) 99 06/26/19 13:20 104 86/48 06/26/19 12:00 104 06/26/19 12:00 97.5 105 20 86/48 (61) 98 Intake and Output 06/26/19 06/27/19 19:00 07:00 Output Total 400 ml 350 ml Balance -400 ml -350 ml Output Urine Total 400 ml 350 ml # Bowel Movements 3 Laboratory Tests 06/26/19 23:30: Stool Occult Blood [Pending] 06/27/19 07:24: White Blood Count 13.7H, Red Blood Count 2.18L, Hemoglobin 8.9#L, Hematocrit 20.7#L, Mean Corpuscular Volume 95, Mean Corpuscular Hemoglobin 41.0H, Mean Corpuscular Hemoglobin Concent 43.1H, Red Cell Distribution Width 19.8H, Platelet Count 51L, Mean Platelet Volume 5.8L, Neutrophils (%) (Auto) , Lymphocytes (%) (Auto) , Monocytes (%) (Auto) , Eosinophils (%) (Auto) , Basophils (%) (Auto) , Neutrophils % (Manual) [Pending], Lymphocytes % (Manual) [Pending], Platelet Estimate [Pending], Platelet Morphology [Pending], Sodium Level 146H, Potassium Level 3.9, Chloride Level 113H, Carbon Dioxide Level 20L, Anion Gap 13, Blood Urea Nitrogen 79H, Creatinine 1.4H, Estimat Glomerular Filtration Rate 37.5, Glucose Level 187H, Uric Acid 11.9H, Calcium Level 8.0L, Phosphorus Level 2.3L, Magnesium Level 3.5H, Total Bilirubin 4.2H, Direct Bilirubin 2.5H, Aspartate Amino Transf (AST/SGOT) 56H, Alanine Aminotransferase (ALT/SGPT) 18, Alkaline Phosphatase 134H, Total Protein 5.9L, Albumin 2.8L, Globulin 3.1, Albumin/Globulin Ratio 0.9L Height (Feet): 5 Height (Inches): 3.00 Weight (Pounds): 136 General Appearance: lethargic EENT: normal ENT inspection Neck: supple Cardiovascular: tachycardia Respiratory/Chest: decreased breath sounds Abdomen: soft, hypoactive bowel sounds, distended Extremities: non-tender Howard Childers MD Jun 27, 2019 10:22
--- NOTE | 2019-06-27 10:37 | Nephrology Progress Note ---
Assessment/Plan Problem List: (1) LEANDRO (acute kidney injury) Assessment: Serum creatinine up to 1.9 (2) Hyperkalemia (3) Liver cirrhosis (4) Liver mass (5) Anemia Assessment - LEANDRO , serum creatinine chapincito to 1.6, likely multifactorial, due to underlying liver disease, antibiotics, low blood pressure. - Hyperkalemia - Hypoalbuminemia - Cirrhosis, ? etiology - Large liver mass, suspect CA - poor Px - lung nodules - abd distention, likely ascites - r/o COVID -FTT -Anemia -UTI -DM -gallstones Plan Patient transfused June 25 Start low-dose midodrine for low blood pressure Start allopurinol p.o. Hyperkalemia resolved. Serum creatinine is lowering Continue slow hydration Nela catheter Avoid nephrotoxics Follow-up with renal parameters Urine studies Per orders Poor prognosis Subjective ROS Limited/Unobtainable: No Constitutional: Reports: malaise Objective Objective Last 24 Hour Vital Signs Date Time Temp Pulse Resp B/P (MAP) Pulse Ox O2 Delivery O2 Flow Rate FiO2 06/27/19 09:00 Nasal Cannula 3.0 06/27/19 08:00 97.6 91 19 119/67 (84) 94 06/27/19 05:47 92 150/95 06/27/19 04:00 97.6 81 19 150/95 (113) 91 06/27/19 04:00 92 06/27/19 00:00 93 06/27/19 00:00 98.0 80 17 99/53 (68) 99 06/26/19 21:20 129 127/75 06/26/19 21:00 Nasal Cannula 3.0 06/26/19 20:00 108 06/26/19 20:00 97.3 129 19 127/75 (92) 99 06/26/19 16:00 100 06/26/19 16:00 97.7 102 18 102/53 (69) 99 06/26/19 13:20 104 86/48 06/26/19 12:00 104 06/26/19 12:00 97.5 105 20 86/48 (61) 98 Intake and Output 06/26/19 06/27/19 19:00 07:00 Output Total 400 ml 350 ml Balance -400 ml -350 ml Output Urine Total 400 ml 350 ml # Bowel Movements 3 Laboratory Tests 06/26/19 23:30: Stool Occult Blood [Pending] 06/27/19 07:24: White Blood Count 13.7H, Red Blood Count 2.18L, Hemoglobin 8.9#L, Hematocrit 20.7#L, Mean Corpuscular Volume 95, Mean Corpuscular Hemoglobin 41.0H, Mean Corpuscular Hemoglobin Concent 43.1H, Red Cell Distribution Width 19.8H, Platelet Count 51L, Mean Platelet Volume 5.8L, Neutrophils (%) (Auto) , Lymphocytes (%) (Auto) , Monocytes (%) (Auto) , Eosinophils (%) (Auto) , Basophils (%) (Auto) , Neutrophils % (Manual) [Pending], Lymphocytes % (Manual) [Pending], Platelet Estimate [Pending], Platelet Morphology [Pending], Sodium Level 146H, Potassium Level 3.9, Chloride Level 113H, Carbon Dioxide Level 20L, Anion Gap 13, Blood Urea Nitrogen 79H, Creatinine 1.4H, Estimat Glomerular Filtration Rate 37.5, Glucose Level 187H, Uric Acid 11.9H, Calcium Level 8.0L, Phosphorus Level 2.3L, Magnesium Level 3.5H, Total Bilirubin 4.2H, Direct Bilirubin 2.5H, Aspartate Amino Transf (AST/SGOT) 56H, Alanine Aminotransferase (ALT/SGPT) 18, Alkaline Phosphatase 134H, Total Protein 5.9L, Albumin 2.8L, Globulin 3.1, Albumin/Globulin Ratio 0.9L Height (Feet): 5 Height (Inches): 3.00 Weight (Pounds): 136 General Appearance: no apparent distress Cardiovascular: tachycardia - Heart rate in the 90s Respiratory/Chest: decreased breath sounds Abdomen: distended Alex Aguilar MD Jun 27, 2019 10:37
[2019-06-27] MEDS: Allopurinol 100mg Tab ORAL SCH (10:45)
[2019-06-27] MEDS: D5 1/2NS 1,000 ML IV SCH (11:05)
--- NOTE | 2019-06-27 11:35 | Pulmonology Progress Note ---
Assessment/Plan Assessment/Plan IMPRESSION: 1. Probable metastatic pulmonary disease. 2. Negative COVID-19. 3. Hepatocellular mass. Likely carcinoma 4. Schizophrenia. 5. Diabetes mellitus. 6. Anemia; now corrected DISCUSSION: Continue low flow O2 prn CXR no change; looks clear Discussed with Gastroenterology. Repeat COVID 19 negative I will follow carefully. Trip Martines M.D. Subjective Interval Events: CXR clear, NGT in place Constitutional: Reports: no symptoms HEENT: Repors: no symptoms Respiratory: Reports: no symptoms Cardiovascular: Reports: no symptoms Gastrointestinal/Abdominal: Reports: no symptoms Genitourinary: Reports: no symptoms Allergies: Coded Allergies: PENICILLINS (Verified Allergy, Unknown, 06/18/19) Objective Last 24 Hour Vital Signs Date Time Temp Pulse Resp B/P (MAP) Pulse Ox O2 Delivery O2 Flow Rate FiO2 06/27/19 09:00 Nasal Cannula 3.0 06/27/19 08:00 79 06/27/19 08:00 97.6 91 19 119/67 (84) 94 06/27/19 05:47 92 150/95 06/27/19 04:00 97.6 81 19 150/95 (113) 91 06/27/19 04:00 92 06/27/19 00:00 93 06/27/19 00:00 98.0 80 17 99/53 (68) 99 06/26/19 21:20 129 127/75 06/26/19 21:00 Nasal Cannula 3.0 06/26/19 20:00 108 06/26/19 20:00 97.3 129 19 127/75 (92) 99 06/26/19 16:00 100 06/26/19 16:00 97.7 102 18 102/53 (69) 99 06/26/19 13:20 104 86/48 06/26/19 12:00 104 06/26/19 12:00 97.5 105 20 86/48 (61) 98 Intake and Output 06/26/19 06/27/19 19:00 07:00 Output Total 400 ml 350 ml Balance -400 ml -350 ml Output Urine Total 400 ml 350 ml # Bowel Movements 3 General Appearance: no acute distress HEENT: normocephalic Respiratory/Chest: chest wall non-tender Cardiovascular: normal peripheral pulses Abdomen: normal bowel sounds Laboratory Tests 06/26/19 23:30: Stool Occult Blood [Pending] 06/27/19 07:24: White Blood Count 13.7H, Red Blood Count 2.18L, Hemoglobin 8.9#L, Hematocrit 20.7#L, Mean Corpuscular Volume 95, Mean Corpuscular Hemoglobin 41.0H, Mean Corpuscular Hemoglobin Concent 43.1H, Red Cell Distribution Width 19.8H, Platelet Count 51L, Mean Platelet Volume 5.8L, Neutrophils (%) (Auto) , Lymphocytes (%) (Auto) , Monocytes (%) (Auto) , Eosinophils (%) (Auto) , Basophils (%) (Auto) , Neutrophils % (Manual) [Pending], Lymphocytes % (Manual) [Pending], Platelet Estimate [Pending], Platelet Morphology [Pending], Sodium Level 146H, Potassium Level 3.9, Chloride Level 113H, Carbon Dioxide Level 20L, Anion Gap 13, Blood Urea Nitrogen 79H, Creatinine 1.4H, Estimat Glomerular Filtration Rate 37.5, Glucose Level 187H, Uric Acid 11.9H, Calcium Level 8.0L, Phosphorus Level 2.3L, Magnesium Level 3.5H, Total Bilirubin 4.2H, Direct Bilirubin 2.5H, Aspartate Amino Transf (AST/SGOT) 56H, Alanine Aminotransferase (ALT/SGPT) 18, Alkaline Phosphatase 134H, Total Protein 5.9L, Albumin 2.8L, Globulin 3.1, Albumin/Globulin Ratio 0.9L Current Medications Medications (Trade) Dose Ordered Sig/Idalia Route PRN Reason Start Time Stop Time Status Last Admin Dose Admin Acetaminophen (Tylenol) 500 mg Q6H PRN ORAL Mild Pain/Temp > 100.5 06/25/19 15:15 07/18/19 15:14 Allopurinol (Zyloprim) 200 mg DAILY ORAL 06/27/19 10:45 07/27/19 10:44 Ceftriaxone Sodium 1 gm/ Dextrose 55 ml @ 110 mls/hr Q24H IVPB 06/26/19 12:45 06/30/19 12:44 06/26/19 14:44 Dextrose (Dextrose 50%) 25 ml Q30M PRN IV Hypoglycemia 06/25/19 15:15 09/17/19 09:44 Dextrose (Dextrose 50%) 50 ml Q30M PRN IV Hypoglycemia 06/25/19 15:15 09/17/19 09:44 Dextrose/Sodium Chloride 1,000 ml @ 50 mls/hr Q20H IV 06/27/19 10:45 07/27/19 10:44 06/27/19 11:05 Guaifenesin/ Codeine Phosphate (Robitussin with codeine) 5 ml Q6H PRN ORAL For Cough 06/25/19 16:00 07/19/19 09:59 Insulin Aspart (NovoLOG) BEFORE MEALS AND HS SUBQ 06/25/19 16:30 09/17/19 11:29 06/27/19 05:55 Lactulose (Cephulac) 20 gm THREE TIMES A DAY ORAL 06/26/19 09:00 07/26/19 08:59 06/26/19 17:43 Metoclopramide HCl (Reglan) 2.5 mg Q6H PRN IVP Nausea & Vomiting 06/26/19 08:00 07/26/19 07:59 Midodrine (Pro-Amatine) 2.5 mg THREE TIMES A DAY ORAL 06/27/19 13:00 09/25/19 12:59 Naloxone HCl (Narcan) 0.2 mg Q2M PRN IVP respiratory depression 06/25/19 15:15 09/18/19 11:59 Olanzapine (ZyPREXA) 5 mg BID ORAL 06/25/19 18:00 08/06/19 15:22 06/27/19 08:56 Pantoprazole (Protonix) 40 mg Q12HR IVP 06/25/19 21:00 07/23/19 08:59 06/27/19 08:55 Propranolol HCl (Inderal) 15 mg Q8HR ORAL 06/25/19 22:00 07/21/19 13:59 06/26/19 21:20 Trip Martines MD Jun 27, 2019 11:34
[2019-06-27 12:00] VITALS: BP 100/63
--- NOTE | 2019-06-27 12:04 | NUR ---
NURSE NOTES: Called and left a message for Dr Aguilar regarding patients lab values.
[2019-06-27] MEDS: cefTRIAXone 1 GM in D5W 55 ML IVPB SCH ×2 (12:45→13:40)
--- NOTE | 2019-06-27 13:00 | NUR ---
NURSE NOTES:Contacted Dr Childers to make him aware that I was unable to place NG tube in patient. Patient cannot receive medications PO as failed swallow eval.
[2019-06-27] MEDS ORDERED: traMADol 50mg tab GT PRN (13:15)
--- NOTE | 2019-06-27 13:19 | General Progress Note ---
Assessment/Plan Assessment/Plan: (1) Intractable pain (2) Metastatic disease possible hepatocellular carcinoma Patient will be started on Tramadol 25mg NGtube 1 tab Q4H PRN severe pain and continued parameters. D/w Dr. Cole and he concurred. Subjective Date patient seen: Jun 27, 2019 Time patient seen: 12:45 - pm Allergies: Coded Allergies: PENICILLINS (Verified Allergy, Unknown, 06/18/19) Subjective Constitutional: Reports: weakness Neurologic/Psychiatric: Reports: anxiety Subjective Patient is in bed and has no signs of distress, Pain is mild d/w nurse at bed side. The Dilaudid was stopped. NG tube waiting to be placed. Objective Last 24 Hour Vital Signs Date Time Temp Pulse Resp B/P (MAP) Pulse Ox O2 Delivery O2 Flow Rate FiO2 06/27/19 12:00 97.6 93 19 100/63 (75) 99 06/27/19 09:00 Nasal Cannula 3.0 06/27/19 08:00 79 06/27/19 08:00 97.6 91 19 119/67 (84) 94 06/27/19 05:47 92 150/95 06/27/19 04:00 97.6 81 19 150/95 (113) 91 06/27/19 04:00 92 06/27/19 00:00 93 06/27/19 00:00 98.0 80 17 99/53 (68) 99 06/26/19 21:20 129 127/75 06/26/19 21:00 Nasal Cannula 3.0 06/26/19 20:00 108 06/26/19 20:00 97.3 129 19 127/75 (92) 99 06/26/19 16:00 100 06/26/19 16:00 97.7 102 18 102/53 (69) 99 06/26/19 13:20 104 86/48 Intake and Output 06/26/19 06/27/19 19:00 07:00 Output Total 400 ml 350 ml Balance -400 ml -350 ml Output Urine Total 400 ml 350 ml # Bowel Movements 3 Laboratory Tests 06/26/19 23:30: Stool Occult Blood Negative 06/27/19 07:24: White Blood Count 13.7H, Red Blood Count 2.18L, Hemoglobin 8.9#L, Hematocrit 20.7#L, Mean Corpuscular Volume 95, Mean Corpuscular Hemoglobin 41.0H, Mean Corpuscular Hemoglobin Concent 43.1H, Red Cell Distribution Width 19.8H, Platelet Count 51L, Mean Platelet Volume 5.8L, Neutrophils (%) (Auto) , Lymphocytes (%) (Auto) , Monocytes (%) (Auto) , Eosinophils (%) (Auto) , Basophils (%) (Auto) , Neutrophils % (Manual) [Pending], Lymphocytes % (Manual) [Pending], Platelet Estimate [Pending], Platelet Morphology [Pending], Sodium Level 146H, Potassium Level 3.9, Chloride Level 113H, Carbon Dioxide Level 20L, Anion Gap 13, Blood Urea Nitrogen 79H, Creatinine 1.4H, Estimat Glomerular Filtration Rate 37.5, Glucose Level 187H, Uric Acid 11.9H, Calcium Level 8.0L, Phosphorus Level 2.3L, Magnesium Level 3.5H, Total Bilirubin 4.2H, Direct Bilirubin 2.5H, Aspartate Amino Transf (AST/SGOT) 56H, Alanine Aminotransferase (ALT/SGPT) 18, Alkaline Phosphatase 134H, Total Protein 5.9L, Albumin 2.8L, Globulin 3.1, Albumin/Globulin Ratio 0.9L Height (Feet): 5 Height (Inches): 3.00 Weight (Pounds): 136 Objective General Appearance: no apparent distress EENT: normal ENT inspection Neck: non-tender, normal alignment Cardiovascular: normal rate, regular rhythm Abdomen: distended Extremities: non-tender Edema: trace edema Neurologic: responsive Joey Gilmore Jun 27, 2019 13:19
--- NOTE | 2019-06-27 13:39 | NUR ---
NURSE NOTES: Mixed the Ceftriaxone with NS instead of D5W. Called pharmacy and they verified it is okay to administer the antibiotic in NS.
[2019-06-27] MEDS ORDERED: cefTRIAXone 1 GM in NS 55 ML IVPB SCH (13:45)
--- NOTE | 2019-06-27 13:55 | Hematology/Onc Progress Note ---
Assessment/Plan Assessment/Plan Assessment and Recs # 7.7 cm left lobe hepatic mass is concerning for hepatocellular carcinoma, particularly given cirrhosis. A large metastasis is also possible. Consider multiphase hepatic protocol MRI. --> also imaging revealed Right renal hypodensities that are too small to characterize. --> seen by gi and surg --> tumor markers show afp 155, cea 26, ca19.9 1660 --> if afp >200, likely hcc, may still need mri --> High recommend to get a tissue diagnosis to confirm diagnosis --> agree with gi is likely cholangio v hcc v pancreatic with mets # Pancytopenia -- multiple etiologies and in this case is related to cirrhosis --> peripheral smear has been ordered and does not show significant abnormalities --> Medications have been reviewed --> Continue to monitor for improvement, trend cbc --> Hep panel and HIV NEGATIVE --> US abd ordered to r/o cirrhosis and hepatosplenomegaly --> DOES SHOW SPLENOMEGALY AND CIRRHOSIS++ --> reverse isolation if ANC is <2000 --> Give neupogen if ANC <1000 --> Transfuse if hgb <7 --> rbc: 2 units 06/26/2019 # FTT may need nutrition support --> when off iso may need peg --> abx: ceftriaxone --> alia positive # Coagulopathy - Cirrhosis, ? etiology --> likely will need ffp and vit k if bleeds --> likely to be a chronic issue with cirrhosis # Abd distention, likely ascites --> also r/o COVID --> isolation # Dvt ppx heparin sq The timing of this note does not necessarily reflect the time of the patient was seen. Greatly appreciate consultation. Subjective Allergies: Coded Allergies: PENICILLINS (Verified Allergy, Unknown, 06/18/19) Subjective 06/20 no events, no bleeding, tumor markers still pending, imaging noted 06/21 still somewhat confused this am, trying to crawl out of bed, no bleeding or chills 06/22 seen by gi for peg when off iso, no bleeding, plt 118k 06/23 no events, no bleeding, labs noted, cbc reviewed, no night sweats, uncomfortable still 06/24 covid 19 negative, labs reviewed, afebrile, on ceftriaxone 06/26 s/p 2 units rbc, hgb 8.9, stool ob negative, on abx Objective Objective Current Medications Medications (Trade) Dose Ordered Sig/Idalia Route PRN Reason Start Time Stop Time Status Last Admin Dose Admin Acetaminophen (Tylenol) 500 mg Q6H PRN ORAL Mild Pain/Temp > 100.5 06/25/19 15:15 07/18/19 15:14 Allopurinol (Zyloprim) 200 mg DAILY ORAL 06/27/19 10:45 07/27/19 10:44 Ceftriaxone Sodium 1 gm/ Dextrose 55 ml @ 110 mls/hr Q24H IVPB 06/26/19 12:45 06/30/19 12:44 06/26/19 14:44 Ceftriaxone Sodium 1 gm/ Sodium Chloride 55 ml @ 110 mls/hr ONCE IVPB 06/27/19 13:45 06/27/19 14:30 06/27/19 13:46 Dextrose (Dextrose 50%) 25 ml Q30M PRN IV Hypoglycemia 06/25/19 15:15 09/17/19 09:44 Dextrose (Dextrose 50%) 50 ml Q30M PRN IV Hypoglycemia 06/25/19 15:15 09/17/19 09:44 Dextrose/Sodium Chloride 1,000 ml @ 50 mls/hr Q20H IV 06/27/19 10:45 07/27/19 10:44 06/27/19 11:05 Guaifenesin/ Codeine Phosphate (Robitussin with codeine) 5 ml Q6H PRN ORAL For Cough 06/25/19 16:00 07/19/19 09:59 Insulin Aspart (NovoLOG) BEFORE MEALS AND HS SUBQ 06/25/19 16:30 09/17/19 11:29 06/27/19 05:55 Lactulose (Cephulac) 20 gm THREE TIMES A DAY ORAL 06/26/19 09:00 07/26/19 08:59 06/26/19 17:43 Metoclopramide HCl (Reglan) 2.5 mg Q6H PRN IVP Nausea & Vomiting 06/26/19 08:00 07/26/19 07:59 Midodrine (Pro-Amatine) 2.5 mg THREE TIMES A DAY ORAL 06/27/19 13:00 09/25/19 12:59 Naloxone HCl (Narcan) 0.2 mg Q2M PRN IVP respiratory depression 06/25/19 15:15 09/18/19 11:59 Olanzapine (ZyPREXA) 5 mg BID ORAL 06/25/19 18:00 08/06/19 15:22 06/27/19 08:56 Pantoprazole (Protonix) 40 mg Q12HR IVP 06/25/19 21:00 07/23/19 08:59 06/27/19 08:55 Propranolol HCl (Inderal) 15 mg Q8HR ORAL 06/25/19 22:00 07/21/19 13:59 06/26/19 21:20 Tramadol HCl (Ultram) 25 mg Q4H PRN GT severe pain 06/27/19 13:18 07/04/19 13:17 Last 24 Hour Vital Signs Date Time Temp Pulse Resp B/P (MAP) Pulse Ox O2 Delivery O2 Flow Rate FiO2 06/27/19 12:00 92 06/27/19 12:00 97.6 93 19 100/63 (75) 99 06/27/19 09:00 Nasal Cannula 3.0 06/27/19 08:00 79 06/27/19 08:00 97.6 91 19 119/67 (84) 94 06/27/19 05:47 92 150/95 06/27/19 04:00 97.6 81 19 150/95 (113) 91 06/27/19 04:00 92 06/27/19 00:00 93 06/27/19 00:00 98.0 80 17 99/53 (68) 99 06/26/19 21:20 129 127/75 06/26/19 21:00 Nasal Cannula 3.0 06/26/19 20:00 108 06/26/19 20:00 97.3 129 19 127/75 (92) 99 06/26/19 16:00 100 06/26/19 16:00 97.7 102 18 102/53 (69) 99 06/26/19 13:20 104 86/48 06/26/19 12:00 104 06/26/19 12:00 97.5 105 20 86/48 (61) 98 06/26/19 08:16 Nasal Cannula 3.0 06/26/19 08:00 102 06/26/19 08:00 98.8 103 18 89/42 (58) 100 06/26/19 06:48 104/55 (71) 06/26/19 06:00 82 104/55 06/26/19 04:01 Nasal Cannula 3.0 06/26/19 04:00 97.0 106 19 94/46 (62) 100 06/26/19 04:00 101 06/26/19 00:01 Nasal Cannula 3.0 06/26/19 00:00 97.3 85 18 90/50 (63) 100 06/26/19 00:00 100 06/25/19 21:44 92 89/44 06/25/19 21:01 Nasal Cannula 3.0 06/25/19 20:00 97.3 92 19 90/44 (59) 100 06/25/19 20:00 106 06/25/19 16:00 104 06/25/19 16:00 Nasal Cannula 3.0 06/25/19 16:00 97.2 105 20 122/64 (83) 95 Intake and Output 06/26/19 06/27/19 19:00 07:00 Output Total 400 ml 350 ml Balance -400 ml -350 ml Output Urine Total 400 ml 350 ml # Bowel Movements 3 Labs Test 06/24/19 14:15 06/25/19 03:41 06/25/19 06:00 06/25/19 07:50 Urine Random Sodium < 20 mmol/L (20-110) White Blood Count 14.9 K/UL (4.8-10.8) 16.4 K/UL (4.8-10.8) Red Blood Count 2.11 M/UL (4.20-5.40) 2.09 M/UL (4.20-5.40) Hemoglobin 7.1 G/DL (12.0-16.0) 7.5 G/DL (12.0-16.0) Hematocrit 20.3 % (37.0-47.0) 20.1 % (37.0-47.0) Mean Corpuscular Volume 96 FL (80-99) 96 FL (80-99) Mean Corpuscular Hemoglobin 33.5 PG (27.0-31.0) 35.8 PG (27.0-31.0) Mean Corpuscular Hemoglobin Concent 34.8 G/DL (32.0-36.0) 37.1 G/DL (32.0-36.0) Red Cell Distribution Width 18.5 % (11.6-14.8) 19.1 % (11.6-14.8) Platelet Count 110 K/UL (150-450) 113 K/UL (150-450) Mean Platelet Volume 5.6 FL (6.5-10.1) 5.6 FL (6.5-10.1) Neutrophils (%) (Auto) % (45.0-75.0) % (45.0-75.0) Lymphocytes (%) (Auto) % (20.0-45.0) % (20.0-45.0) Monocytes (%) (Auto) % (1.0-10.0) % (1.0-10.0) Eosinophils (%) (Auto) % (0.0-3.0) % (0.0-3.0) Basophils (%) (Auto) % (0.0-2.0) % (0.0-2.0) Differential Total Cells Counted 100 100 Neutrophils % (Manual) 84 % (45-75) 88 % (45-75) Lymphocytes % (Manual) 6 % (20-45) 3 % (20-45) Monocytes % (Manual) 6 % (1-10) 9 % (1-10) Eosinophils % (Manual) 0 % (0-3) 0 % (0-3) Basophils % (Manual) 0 % (0-2) 0 % (0-2) Band Neutrophils 4 % (0-8) 0 % (0-8) Platelet Estimate Decreased Decreased Platelet Morphology Normal Normal Anisocytosis 1+ 1+ Sodium Level 138 MMOL/L (136-145) Potassium Level 5.4 MMOL/L (3.5-5.1) Chloride Level 106 MMOL/L (98-107) Carbon Dioxide Level 18 MMOL/L (21-32) Anion Gap 14 mmol/L (5-15) Blood Urea Nitrogen 87 mg/dL (7-18) Creatinine 1.9 MG/DL (0.55-1.30) Estimat Glomerular Filtration Rate 26.3 mL/min (>60) Glucose Level 137 MG/DL (74-106) Hemoglobin A1c 4.5 % (4.3-6.0) Uric Acid 12.7 MG/DL (2.6-7.2) Calcium Level 7.8 MG/DL (8.5-10.1) Phosphorus Level 4.8 MG/DL (2.5-4.9) Magnesium Level 3.3 MG/DL (1.8-2.4) Total Bilirubin 2.3 MG/DL (0.2-1.0) Direct Bilirubin 1.5 MG/DL (0.0-0.3) Aspartate Amino Transf (AST/SGOT) 46 U/L (15-37) Alanine Aminotransferase (ALT/SGPT) 19 U/L (12-78) Alkaline Phosphatase 94 U/L (46-116) Ammonia 19 umol/L (11-32) C-Reactive Protein, Quantitative 13.3 mg/dL (0.00-0.90) Pro-B-Type Natriuretic Peptide 809 pg/mL (0-125) Total Protein 6.4 G/DL (6.4-8.2) Albumin 2.7 G/DL (3.4-5.0) Globulin 3.7 g/dL Albumin/Globulin Ratio 0.7 (1.0-2.7) Vitamin B12 Level > 2000 PG/ML (193-986) Folate 13.9 NG/ML (8.6-58.9) Urine Eosinophils None seen (NONE SEEN) Hypochromasia 1+ Test 06/25/19 15:45 06/26/19 07:05 06/26/19 23:30 06/27/19 07:24 Body Fluid Source Paracentesis Body Fluid Volume 27 mL Body Fluid Appearance Bloody (Clear) Body Fluid RBC [id number] /CUMM Body Fluid Total Nucleated Cells 08422 /CUMM Body Fluid Polynuclear WBCs (%) 77 % Body Fluid Mononuclear WBCs (%) 20 % Body Fluid Mesothelial Cells (%) 3 % White Blood Count 9.5 K/UL (4.8-10.8) 13.7 K/UL (4.8-10.8) Red Blood Count 1.65 M/UL (4.20-5.40) 2.18 M/UL (4.20-5.40) Hemoglobin 5.4 G/DL (12.0-16.0) 8.9 G/DL (12.0-16.0) Hematocrit 15.9 % (37.0-47.0) 20.7 % (37.0-47.0) Mean Corpuscular Volume 97 FL (80-99) 95 FL (80-99) Mean Corpuscular Hemoglobin 32.6 PG (27.0-31.0) 41.0 PG (27.0-31.0) Mean Corpuscular Hemoglobin Concent 33.7 G/DL (32.0-36.0) 43.1 G/DL (32.0-36.0) Red Cell Distribution Width 17.9 % (11.6-14.8) 19.8 % (11.6-14.8) Platelet Count 64 K/UL (150-450) 51 K/UL (150-450) Mean Platelet Volume 5.7 FL (6.5-10.1) 5.8 FL (6.5-10.1) Neutrophils (%) (Auto) % (45.0-75.0) % (45.0-75.0) Lymphocytes (%) (Auto) % (20.0-45.0) % (20.0-45.0) Monocytes (%) (Auto) % (1.0-10.0) % (1.0-10.0) Eosinophils (%) (Auto) % (0.0-3.0) % (0.0-3.0) Basophils (%) (Auto) % (0.0-2.0) % (0.0-2.0) Differential Total Cells Counted 100 Neutrophils % (Manual) 79 % (45-75) Lymphocytes % (Manual) 10 % (20-45) Monocytes % (Manual) 11 % (1-10) Eosinophils % (Manual) 0 % (0-3) Basophils % (Manual) 0 % (0-2) Band Neutrophils 0 % (0-8) Platelet Estimate Decreased Platelet Morphology Normal Polychromasia 1+ Hypochromasia 1+ Anisocytosis 1+ Prothrombin Time 16.7 SEC (9.30-11.50) Prothromb Time International Ratio 1.6 (0.9-1.1) Sodium Level 142 MMOL/L (136-145) 146 MMOL/L (136-145) Potassium Level 4.9 MMOL/L (3.5-5.1) 3.9 MMOL/L (3.5-5.1) Chloride Level 110 MMOL/L (98-107) 113 MMOL/L (98-107) Carbon Dioxide Level 17 MMOL/L (21-32) 20 MMOL/L (21-32) Anion Gap 16 mmol/L (5-15) 13 mmol/L (5-15) Blood Urea Nitrogen 94 mg/dL (7-18) 79 mg/dL (7-18) Creatinine 1.8 MG/DL (0.55-1.30) 1.4 MG/DL (0.55-1.30) Estimat Glomerular Filtration Rate 28.0 mL/min (>60) 37.5 mL/min (>60) Glucose Level 195 MG/DL (74-106) 187 MG/DL (74-106) Calcium Level 7.6 MG/DL (8.5-10.1) 8.0 MG/DL (8.5-10.1) Total Bilirubin 2.1 MG/DL (0.2-1.0) 4.2 MG/DL (0.2-1.0) Direct Bilirubin 1.5 MG/DL (0.0-0.3) 2.5 MG/DL (0.0-0.3) Aspartate Amino Transf (AST/SGOT) 50 U/L (15-37) 56 U/L (15-37) Alanine Aminotransferase (ALT/SGPT) 19 U/L (12-78) 18 U/L (12-78) Alkaline Phosphatase 132 U/L (46-116) 134 U/L (46-116) Total Protein 5.5 G/DL (6.4-8.2) 5.9 G/DL (6.4-8.2) Albumin 2.5 G/DL (3.4-5.0) 2.8 G/DL (3.4-5.0) Globulin 3.0 g/dL 3.1 g/dL Albumin/Globulin Ratio 0.8 (1.0-2.7) 0.9 (1.0-2.7) Stool Occult Blood Negative (NEGATIVE) Uric Acid 11.9 MG/DL (2.6-7.2) Phosphorus Level 2.3 MG/DL (2.5-4.9) Magnesium Level 3.5 MG/DL (1.8-2.4) Height (Feet): 5 Height (Inches): 3.00 Weight (Pounds): 136 Objective Physical Exam: Vitals: reviewed General: NAD HEENT: nc, at, NG+ Neck: supple Chest: clear breath sounds bilaterally, nc+ Cardiovascular: RRR, no s3, s4 Abdomen: soft, nontender, nd Extremities: no cce, normal range of motion Neuro: alert and oriented : alberto+ Cristobal Staples MD Jun 27, 2019 13:55
--- NOTE | 2019-06-27 15:01 | Infectious Diseases Prog Note ---
Assessment/Plan Assessment/Plan IMPRESSION: Hypoxemia and abnormal CT scan of the chest, more likely metastatic disease. Cirrhosis of liver Portal hypertension, Diabetes mellitus, Hypertension, Cholelithiasis, Anemia, suspected liver neoplasm. Gastric varices RECOMMENDATION: Discontinue Rocephin Negative COVID-19 test. Prognosis is poor Subjective ROS Limited/Unobtainable: Yes Neurologic: Reports: confusion, other - on restraint Allergies: Coded Allergies: PENICILLINS (Verified Allergy, Unknown, 06/18/19) Objective Vital Signs Last 24 Hour Vital Signs Date Time Temp Pulse Resp B/P (MAP) Pulse Ox O2 Delivery O2 Flow Rate FiO2 06/27/19 14:00 92 100/63 06/27/19 12:00 92 06/27/19 12:00 97.6 93 19 100/63 (75) 99 06/27/19 09:00 Nasal Cannula 3.0 06/27/19 08:00 79 06/27/19 08:00 97.6 91 19 119/67 (84) 94 06/27/19 05:47 92 150/95 06/27/19 04:00 97.6 81 19 150/95 (113) 91 06/27/19 04:00 92 06/27/19 00:00 93 06/27/19 00:00 98.0 80 17 99/53 (68) 99 06/26/19 21:20 129 127/75 06/26/19 21:00 Nasal Cannula 3.0 06/26/19 20:00 108 06/26/19 20:00 97.3 129 19 127/75 (92) 99 06/26/19 16:00 100 06/26/19 16:00 97.7 102 18 102/53 (69) 99 Height (Feet): 5 Height (Inches): 3.00 Weight (Pounds): 136 HEENT: mucous membranes moist Respiratory/Chest: lungs clear Cardiovascular: normal rate Abdomen: distended Extremities: no edema Neurologic/Psychiatric: alert, disoriented Laboratory Tests Test 06/26/19 23:30 06/27/19 07:24 Stool Occult Blood Negative (NEGATIVE) White Blood Count 13.7 K/UL (4.8-10.8) H Red Blood Count 2.18 M/UL (4.20-5.40) L Hemoglobin 8.9 G/DL (12.0-16.0) #L Hematocrit 20.7 % (37.0-47.0) #L Mean Corpuscular Volume 95 FL (80-99) Mean Corpuscular Hemoglobin 41.0 PG (27.0-31.0) H Mean Corpuscular Hemoglobin Concent 43.1 G/DL (32.0-36.0) H Red Cell Distribution Width 19.8 % (11.6-14.8) H Platelet Count 51 K/UL (150-450) L Mean Platelet Volume 5.8 FL (6.5-10.1) L Neutrophils (%) (Auto) % (45.0-75.0) Lymphocytes (%) (Auto) % (20.0-45.0) Monocytes (%) (Auto) % (1.0-10.0) Eosinophils (%) (Auto) % (0.0-3.0) Basophils (%) (Auto) % (0.0-2.0) Neutrophils % (Manual) 80 % (45-75) H Lymphocytes % (Manual) 10 % (20-45) L Monocytes % (Manual) 10 % (1-10) Eosinophils % (Manual) 0 % (0-3) Basophils % (Manual) 0 % (0-2) Band Neutrophils 0 % (0-8) Platelet Estimate Decreased L Platelet Morphology Normal Polychromasia 1+ Hypochromasia 2+ Anisocytosis 1+ Sodium Level 146 MMOL/L (136-145) H Potassium Level 3.9 MMOL/L (3.5-5.1) Chloride Level 113 MMOL/L (98-107) H Carbon Dioxide Level 20 MMOL/L (21-32) L Anion Gap 13 mmol/L (5-15) Blood Urea Nitrogen 79 mg/dL (7-18) H Creatinine 1.4 MG/DL (0.55-1.30) H Estimat Glomerular Filtration Rate 37.5 mL/min (>60) Glucose Level 187 MG/DL (74-106) H Uric Acid 11.9 MG/DL (2.6-7.2) H Calcium Level 8.0 MG/DL (8.5-10.1) L Phosphorus Level 2.3 MG/DL (2.5-4.9) L Magnesium Level 3.5 MG/DL (1.8-2.4) H Total Bilirubin 4.2 MG/DL (0.2-1.0) H Direct Bilirubin 2.5 MG/DL (0.0-0.3) H Aspartate Amino Transf (AST/SGOT) 56 U/L (15-37) H Alanine Aminotransferase (ALT/SGPT) 18 U/L (12-78) Alkaline Phosphatase 134 U/L (46-116) H Total Protein 5.9 G/DL (6.4-8.2) L Albumin 2.8 G/DL (3.4-5.0) L Globulin 3.1 g/dL Albumin/Globulin Ratio 0.9 (1.0-2.7) L Current Medications Medications (Trade) Dose Ordered Sig/Idalia Route PRN Reason Start Time Stop Time Status Last Admin Dose Admin Acetaminophen (Tylenol) 500 mg Q6H PRN ORAL Mild Pain/Temp > 100.5 06/25/19 15:15 07/18/19 15:14 Allopurinol (Zyloprim) 200 mg DAILY ORAL 06/27/19 10:45 07/27/19 10:44 Ceftriaxone Sodium 1 gm/ Dextrose 55 ml @ 110 mls/hr Q24H IVPB 06/26/19 12:45 06/30/19 12:44 06/26/19 14:44 Dextrose (Dextrose 50%) 25 ml Q30M PRN IV Hypoglycemia 06/25/19 15:15 09/17/19 09:44 Dextrose (Dextrose 50%) 50 ml Q30M PRN IV Hypoglycemia 06/25/19 15:15 09/17/19 09:44 Dextrose/Sodium Chloride 1,000 ml @ 50 mls/hr Q20H IV 06/27/19 10:45 07/27/19 10:44 06/27/19 11:05 Guaifenesin/ Codeine Phosphate (Robitussin with codeine) 5 ml Q6H PRN ORAL For Cough 06/25/19 16:00 07/19/19 09:59 Insulin Aspart (NovoLOG) BEFORE MEALS AND HS SUBQ 06/25/19 16:30 09/17/19 11:29 06/27/19 05:55 Lactulose (Cephulac) 20 gm THREE TIMES A DAY ORAL 06/26/19 09:00 07/26/19 08:59 06/26/19 17:43 Metoclopramide HCl (Reglan) 2.5 mg Q6H PRN IVP Nausea & Vomiting 06/26/19 08:00 07/26/19 07:59 Midodrine (Pro-Amatine) 2.5 mg THREE TIMES A DAY ORAL 06/27/19 13:00 09/25/19 12:59 Naloxone HCl (Narcan) 0.2 mg Q2M PRN IVP respiratory depression 06/25/19 15:15 09/18/19 11:59 Olanzapine (ZyPREXA) 5 mg BID ORAL 06/25/19 18:00 08/06/19 15:22 06/27/19 08:56 Pantoprazole (Protonix) 40 mg Q12HR IVP 06/25/19 21:00 07/23/19 08:59 06/27/19 08:55 Propranolol HCl (Inderal) 15 mg Q8HR ORAL 06/25/19 22:00 07/21/19 13:59 06/26/19 21:20 Tramadol HCl (Ultram) 25 mg Q4H PRN GT severe pain 06/27/19 13:18 07/04/19 13:17 Manuel Kemp MD Jun 27, 2019 15:01
[2019-06-27 16:00] VITALS: BP 110/71
--- NOTE | 2019-06-27 17:13 | NUR ---
NURSE NOTES: Insulin held as patient is NPO and not receiving any nutrition.
[2019-06-27] MEDS ORDERED: D5NS 1000ml IV ONE (17:43)
--- NOTE | 2019-06-27 18:10 | Surgery Progress Note ---
Surgery Progress Note Subjective Additional Comments transfused stable h/h noted exam unchanged ill appearing Objective Last 24 Hour Vital Signs Date Time Temp Pulse Resp B/P (MAP) Pulse Ox O2 Delivery O2 Flow Rate FiO2 06/27/19 16:00 102 06/27/19 16:00 98.6 102 13 110/71 (84) 98 06/27/19 14:00 92 100/63 06/27/19 12:00 92 06/27/19 12:00 97.6 93 19 100/63 (75) 99 06/27/19 09:00 Nasal Cannula 3.0 06/27/19 08:00 79 06/27/19 08:00 97.6 91 19 119/67 (84) 94 06/27/19 05:47 92 150/95 06/27/19 04:00 97.6 81 19 150/95 (113) 91 06/27/19 04:00 92 06/27/19 00:00 93 06/27/19 00:00 98.0 80 17 99/53 (68) 99 06/26/19 21:20 129 127/75 06/26/19 21:00 Nasal Cannula 3.0 06/26/19 20:00 108 06/26/19 20:00 97.3 129 19 127/75 (92) 99 I&O Intake and Output 06/26/19 06/27/19 19:00 07:00 Output Total 400 ml 350 ml Balance -400 ml -350 ml Output Urine Total 400 ml 350 ml # Bowel Movements 3 Cardiovascular: RSR Respiratory: decreased breath sounds Abdomen: soft, non-tender, present bowel sounds Extremities: no cyanosis Laboratory Tests Test 06/26/19 23:30 06/27/19 07:24 Stool Occult Blood Negative (NEGATIVE) White Blood Count 13.7 K/UL (4.8-10.8) H Red Blood Count 2.18 M/UL (4.20-5.40) L Hemoglobin 8.9 G/DL (12.0-16.0) #L Hematocrit 20.7 % (37.0-47.0) #L Mean Corpuscular Volume 95 FL (80-99) Mean Corpuscular Hemoglobin 41.0 PG (27.0-31.0) H Mean Corpuscular Hemoglobin Concent 43.1 G/DL (32.0-36.0) H Red Cell Distribution Width 19.8 % (11.6-14.8) H Platelet Count 51 K/UL (150-450) L Mean Platelet Volume 5.8 FL (6.5-10.1) L Neutrophils (%) (Auto) % (45.0-75.0) Lymphocytes (%) (Auto) % (20.0-45.0) Monocytes (%) (Auto) % (1.0-10.0) Eosinophils (%) (Auto) % (0.0-3.0) Basophils (%) (Auto) % (0.0-2.0) Neutrophils % (Manual) 80 % (45-75) H Lymphocytes % (Manual) 10 % (20-45) L Monocytes % (Manual) 10 % (1-10) Eosinophils % (Manual) 0 % (0-3) Basophils % (Manual) 0 % (0-2) Band Neutrophils 0 % (0-8) Platelet Estimate Decreased L Platelet Morphology Normal Polychromasia 1+ Hypochromasia 2+ Anisocytosis 1+ Sodium Level 146 MMOL/L (136-145) H Potassium Level 3.9 MMOL/L (3.5-5.1) Chloride Level 113 MMOL/L (98-107) H Carbon Dioxide Level 20 MMOL/L (21-32) L Anion Gap 13 mmol/L (5-15) Blood Urea Nitrogen 79 mg/dL (7-18) H Creatinine 1.4 MG/DL (0.55-1.30) H Estimat Glomerular Filtration Rate 37.5 mL/min (>60) Glucose Level 187 MG/DL (74-106) H Uric Acid 11.9 MG/DL (2.6-7.2) H Calcium Level 8.0 MG/DL (8.5-10.1) L Phosphorus Level 2.3 MG/DL (2.5-4.9) L Magnesium Level 3.5 MG/DL (1.8-2.4) H Total Bilirubin 4.2 MG/DL (0.2-1.0) H Direct Bilirubin 2.5 MG/DL (0.0-0.3) H Aspartate Amino Transf (AST/SGOT) 56 U/L (15-37) H Alanine Aminotransferase (ALT/SGPT) 18 U/L (12-78) Alkaline Phosphatase 134 U/L (46-116) H Total Protein 5.9 G/DL (6.4-8.2) L Albumin 2.8 G/DL (3.4-5.0) L Globulin 3.1 g/dL Albumin/Globulin Ratio 0.9 (1.0-2.7) L Plan Problems: (1) Abdominal pain Assessment & Plan: [age]-year-old female multiple medical comorbidities presented with abdominal discomfort noted to have abnormal LFTs leukocytosis. CT reviewed liver cirrhotic and there is a mass. Possibly carcinoma likely. HCC. Abdominal exam without peritonitis no acute surgical intervention indicated recommended at this time supportive treatment. Will follow with recommendations thank you tumor markers show afp 155, cea 26, ca19.9 1660 Consider comfort care/hospice can consider biopsy for diagnosis but unfortunately will unlikely help as advanced disease and given differential likely terminal Will follow with recommendations Covid results negative Lower thorax: Unremarkable lung bases. Intraperitoneal space: No free air. Gastrointestinal tract: Unremarkable. No dilation. Bones/joints: Degenerative spine findings and osteopenia. Tubes, lines and devices: Enteric tube with tip and proximal sideport below the gastroesophageal junction. IMPRESSION: 1. Enteric tube with tip and proximal sideport below the gastroesophageal junction. 2. Unremarkable lung bases. 3. No acute abnormality definitively seen. GI placed feeding tube cont feeds as tolerated severe anemia - gi blood loss? transfuse as per heme trend Thank you The liver is cirrhotic. There is evidence of portal hypertension including splenomegaly and gastric varices. There is a mass in the left lobe, primarily in the lateral segments, but also extending medially. This measures 7.7 x 5 x 4.8 cm in greatest transverse, anteroposterior, and craniocaudal dimensions respectively. This is hypodense/hypoenhancing compared to relatively normal adjacent parenchyma in the portal venous phase. This could reflect early washout of a hepatocellular carcinoma, particularly given cirrhosis. A large metastasis is also possible. Cholelithiasis. 2.2 cm densely calcified stone in the dependent gallbladder. No biliary ductal dilation. Both kidneys demonstrate multiple hypodense lesions, which are too small to characterize. No hydronephrosis. There is no bowel obstruction or perforation. The appendix is not well seen. Leftward pelvic calcification may reflect a subserosal uterine fibroid. No abdominal aortic aneurysm. No acute fracture. IMPRESSION: 7.7 cm left lobe hepatic mass is concerning for hepatocellular carcinoma, particularly given cirrhosis. A large metastasis is also possible. Consider multiphase hepatic protocol MRI. Right renal hypodensities that are too small to characterize. Cholelithiasis. [place] Kearns Jun 27, 2019 18:10
--- NOTE | 2019-06-27 19:38 | NUR ---
NURSE NOTES: Handoff given to Brandy
--- NOTE | 2019-06-27 19:40 | NUR ---
NURSE NOTES: Received report from AROLDO Brown. Patient is on bed, awake, alert and oriented x 1. Connected oxygen via nasal cannula at 2 Lpm, no respiratory distress reported. Patient has bilateral restraints on wrist. Patient is on tube feeding but pulled it out almost 3x and Dr. Childers has been aware. Patient has dominguez catheter F-16, draining yellow-orange urine. piece jobber is on shows sinus tachycardia. Patient has IV line on Left hand G-22 saline lock and IV site on left forearm G-22 running fluid of D5 NS 75cc/hour that is patent, intact and infusing well. Safety measures are in placed, bed in lowest and locked position, bed alarm is on, side rails up x 2. Call light within reach, will continue plan of care.
[2019-06-27 20:00] VITALS: BP 102/58
--- NOTE | 2019-06-27 20:54 | General Progress Note ---
Assessment/Plan Problem List: (1) Dehydration ICD Codes: E86.0 - Dehydration SNOMED: 53129786 (2) Hypoxia ICD Codes: R09.02 - Hypoxemia SNOMED: 412017516 (3) Abdominal pain ICD Codes: R10.9 - Unspecified abdominal pain SNOMED: 81387344 Qualifiers: Qualified Codes: R10.9 - Unspecified abdominal pain (4) Pneumonia ICD Codes: J18.9 - Pneumonia, unspecified organism SNOMED: 915020726 Qualifiers: Qualified Codes: J18.9 - Pneumonia, unspecified organism (5) HCC (hepatocellular carcinoma) ICD Codes: C22.0 - Liver cell carcinoma SNOMED: 130448064 Status: progressing Assessment/Plan: resp insuff no wheezing pna not improving mets cancer HCC poor prognosis Subjective ROS Limited/Unobtainable: Yes Allergies: Coded Allergies: PENICILLINS (Verified Allergy, Unknown, 06/18/19) Objective Last 24 Hour Vital Signs Date Time Temp Pulse Resp B/P (MAP) Pulse Ox O2 Delivery O2 Flow Rate FiO2 06/27/19 16:00 102 06/27/19 16:00 98.6 102 13 110/71 (84) 98 06/27/19 14:00 92 100/63 06/27/19 12:00 92 06/27/19 12:00 97.6 93 19 100/63 (75) 99 06/27/19 09:00 Nasal Cannula 3.0 06/27/19 08:00 79 06/27/19 08:00 97.6 91 19 119/67 (84) 94 06/27/19 05:47 92 150/95 06/27/19 04:00 97.6 81 19 150/95 (113) 91 06/27/19 04:00 92 06/27/19 00:00 93 06/27/19 00:00 98.0 80 17 99/53 (68) 99 06/26/19 21:20 129 127/75 06/26/19 21:00 Nasal Cannula 3.0 Intake and Output 06/26/19 06/27/19 19:00 07:00 Output Total 400 ml 350 ml Balance -400 ml -350 ml Output Urine Total 400 ml 350 ml # Bowel Movements 3 Laboratory Tests 06/26/19 23:30: Stool Occult Blood Negative 06/27/19 07:24: White Blood Count 13.7H, Red Blood Count 2.18L, Hemoglobin 8.9#L, Hematocrit 20.7#L, Mean Corpuscular Volume 95, Mean Corpuscular Hemoglobin 41.0H, Mean Corpuscular Hemoglobin Concent 43.1H, Red Cell Distribution Width 19.8H, Platelet Count 51L, Mean Platelet Volume 5.8L, Neutrophils (%) (Auto) , Lymphocytes (%) (Auto) , Monocytes (%) (Auto) , Eosinophils (%) (Auto) , Basophils (%) (Auto) , Neutrophils % (Manual) 80H, Lymphocytes % (Manual) 10L, Monocytes % (Manual) 10, Eosinophils % (Manual) 0, Basophils % (Manual) 0, Band Neutrophils 0, Platelet Estimate DecreasedL, Platelet Morphology Normal, Polychromasia 1+, Hypochromasia 2+, Anisocytosis 1+, Sodium Level 146H, Potassium Level 3.9, Chloride Level 113H, Carbon Dioxide Level 20L, Anion Gap 13 , Blood Urea Nitrogen 79H, Creatinine 1.4H, Estimat Glomerular Filtration Rate 37.5, Glucose Level 187H, Uric Acid 11.9H, Calcium Level 8.0L, Phosphorus Level 2.3L, Magnesium Level 3.5H, Total Bilirubin 4.2H, Direct Bilirubin 2.5H, Aspartate Amino Transf (AST/SGOT) 56H, Alanine Aminotransferase (ALT/SGPT) 18, Alkaline Phosphatase 134H, Total Protein 5.9L, Albumin 2.8L, Globulin 3.1, Albumin/Globulin Ratio 0.9L Height (Feet): 5 Height (Inches): 3.00 Weight (Pounds): 136 Era Acuña MD Jun 27, 2019 20:54
--- NOTE | 2019-06-27 23:30 | NUR ---
NURSE NOTES: Patient is restless and has been screaming. Notified Dr. Holden, awaiting for orders.
--- NOTE | 2019-06-27 23:35 | NUR ---
NURSE NOTES: Dr. Holden ordered ativan 1mg IM every 4 hours as needed for agitation.
[2019-06-27] MEDS: LORazepam Inj 2mg/ml 1ml IM PRN (23:40)
[2019-06-28] VITALS: BP 113/56
--- NOTE | 2019-06-28 02:46 | NUR ---
NURSE NOTES: Patient is still restless and kept on shouting despite of 1mg ativan given IM around 2340. Alternative measures was provided like repositioning her and provided oral care. Notified Dr. Holden thru text, awaiting for orders.
--- NOTE | 2019-06-28 03:15 | Progress Note ---
DATE: 06/27/2019 SUBJECTIVE: Patient continues to be agitated easily. She is still attempting to come out of bed, pulled out her NG tube. Patient is difficult to manage. MENTAL STATUS EXAMINATION: Patient is alert, confused. Mood is agitated. Affect is flat. Thought process is disorganized. Thought content, no suicidal or homicidal ideation. ASSESSMENT: Stable. PLAN: 1. We will continue current medications. 2. Increase the Zyprexa. Per Holden M.D. DR: IVET JOB#: [id number] CC:
[2019-06-28 04:00] VITALS: BP 150/66
[2019-06-28] MEDS: LORazepam Inj 2mg/ml 1ml IM PRN ×2 (04:00→23:49)
[2019-06-28] MEDS: Propranolol 10mg tab ORAL SCH ×3 (06:00→22:00)
[2019-06-28] MEDS: NovoLOG Insulin Flexpen SUBQ SCH ×4 (06:22→21:00)
[2019-06-28] MEDS: D5 1/2NS 1,000 ML IV SCH (06:45)
--- NOTE | 2019-06-28 07:00 | NUR ---
NURSE NOTES: Handoff received from AROLDO Madden. Patient received sleeping in bed, no acute signs of distress noted. Patient has dominguez cath patent and draining. Bed in the low and locked position, alarm on, with call light within reach, Patient is in bilateral soft wrist restraints. No signs of distress noted, will continue to monitor.
[2019-06-28 07:49] LABS: INR 1.4 (0.9-1.1)
[2019-06-28 08:00] VITALS: BP 96/53
--- NOTE | 2019-06-28 08:06 | NUR ---
HAND-OFF: Report given to AROLDO Brown. Patient is in stable condition, plan of care endorsed.
[2019-06-28 08:16] LABS: HEMATOCRIT 25.1 % (37.0-47.0); HEMOGLOBIN 8.7 G/DL (12.0-16.0); MEAN CORPUSCULAR VOLUME 96 FL (80-99); PLATELET COUNT 34 K/UL (150-450); WHITE BLOOD COUNT 11.6 K/UL (4.8-10.8)
--- NOTE | 2019-06-28 08:39 | General Progress Note ---
Assessment/Plan Status: progressing Assessment/Plan: Assessment/Plan Assessment/Plan: Assessment - Cirrhosis, ? etiology - Large liver mass, suspect CA - poor Px - lung nodules - abd distention, ascites -FTT -Anemia -UTI -DM -gallstones -GV Recommendations - Cirrhsis w/u ([facility], [facility], [facility], [facility]) -low dose Propranolol -Repeat labs -tumor markers reviewed>>>? cholangio CA with liver mets -pending MRI or liver biopsy _ s/p EGD>>> gastric varices -s/p paracentesis 7 lit albumin lactulose NGTF low dose reglan s/p 2 units PRBC without overt GIB poor prognosis Subjective ROS Limited/Unobtainable: No Allergies: Coded Allergies: PENICILLINS (Verified Allergy, Unknown, 06/18/19) Objective Last 24 Hour Vital Signs Date Time Temp Pulse Resp B/P (MAP) Pulse Ox O2 Delivery O2 Flow Rate FiO2 06/28/19 08:00 98.3 67 18 96/53 (67) 94 06/28/19 06:00 103 150/66 06/28/19 04:00 98.4 103 17 150/66 (94) 94 06/28/19 03:37 103 06/28/19 00:00 98.9 100 20 113/56 (75) 95 06/27/19 23:30 108 06/27/19 22:00 102 110/71 06/27/19 21:00 Nasal Cannula 2.0 06/27/19 20:00 98.9 103 16 102/58 (73) 95 06/27/19 19:06 102 06/27/19 16:00 102 06/27/19 16:00 98.6 102 13 110/71 (84) 98 06/27/19 14:00 92 100/63 06/27/19 12:00 92 06/27/19 12:00 97.6 93 19 100/63 (75) 99 06/27/19 09:00 Nasal Cannula 3.0 Intake and Output 06/27/19 06/28/19 19:00 07:00 Intake Total 200 ml 600 ml Output Total 290 ml 500 ml Balance -90 ml 100 ml IV Total 200 ml 600 ml Output Urine Total 290 ml 500 ml # Voids 1 # Bowel Movements 1 Laboratory Tests 06/28/19 06:45: White Blood Count 11.6H, Red Blood Count 2.60L, Hemoglobin 8.7L, Hematocrit 25.1L, Mean Corpuscular Volume 96, Mean Corpuscular Hemoglobin 33.5H, Mean Corpuscular Hemoglobin Concent 34.8, Red Cell Distribution Width 17.0H, Platelet Count 34L, Mean Platelet Volume 7.6, Neutrophils (%) (Auto) , Lymphocytes (%) (Auto) , Monocytes (%) (Auto) , Eosinophils (%) (Auto) , Basophils (%) (Auto) , Neutrophils % (Manual) [Pending], Lymphocytes % (Manual) [Pending], Platelet Estimate [Pending], Platelet Morphology [Pending], Prothrombin Time 14.5H, Prothromb Time International Ratio 1.4H, Sodium Level [ Pending], Potassium Level [Pending], Chloride Level [Pending], Carbon Dioxide Level [Pending], Blood Urea Nitrogen [Pending], Creatinine [Pending], Estimat Glomerular Filtration Rate [Pending], Glucose Level [Pending], Calcium Level [ Pending], Total Bilirubin [Pending], Aspartate Amino Transf (AST/SGOT) [Pending] , Alanine Aminotransferase (ALT/SGPT) [Pending], Alkaline Phosphatase [Pending] , Total Protein [Pending], Albumin [Pending], Globulin [Pending] Height (Feet): 5 Height (Inches): 3.00 Weight (Pounds): 136 General Appearance: lethargic EENT: normal ENT inspection Neck: normal alignment, supple Cardiovascular: normal rate Respiratory/Chest: decreased breath sounds Abdomen: hypoactive bowel sounds, distended Extremities: non-tender Howard Childers MD Jun 28, 2019 08:39
[2019-06-28 08:44] LABS: ALANINE AMINOTRANSFERASE 27 U/L (12-78); ALBUMIN 2.5 G/DL (3.4-5.0); ALBUMIN/GLOBULIN RATIO 0.9 (1.0-2.7); ALKALINE PHOSPHATASE 123 U/L (46-116); ANION GAP 16 mmol/L (5-15); ASPARTATE AMINO TRANSFERASE 47 U/L (15-37); BILIRUBIN,TOTAL 3.5 MG/DL (0.2-1.0); BLOOD UREA NITROGEN 62 mg/dL (7-18); CALCIUM 7.8 MG/DL (8.5-10.1); CARBON DIOXIDE 16 MMOL/L (21-32); CHLORIDE 115 MMOL/L (98-107); CREATININE 1.2 MG/DL (0.55-1.30); POTASSIUM 4.6 MMOL/L (3.5-5.1); SODIUM 147 MMOL/L (136-145)
[2019-06-28 08:45] LABS: BILIRUBIN,DIRECT 0.1 MG/DL (0.0-0.3)
[2019-06-28] MEDS: Lactulose 20gm/30ml UDC ORAL SCH ×3 (08:57→17:58)
[2019-06-28] MEDS: Allopurinol 100mg Tab ORAL SCH (08:58)
[2019-06-28] MEDS: Pantoprazole Inj IVP SCH (09:05)
--- NOTE | 2019-06-28 09:07 | NUR ---
RD ASSESSMENT & RECOMMENDATIONS SEE CARE ACTIVITY FOR COMPLETE ASSESSMENT DAILY ESTIMATED NEEDS: Needs based on hepatic, pulmonary 61.8kg 25-30 kcals/kg 8848-7218 total kcals 1-1.5 g protein/kg 62-93 g total protein 25-30 mL/kg 7011-5262 total fluid mLs NUTRITION DIAGNOSIS: Swallowing difficulty r/t dysphagia, confusion as evidenced by BARGEMAN eval, previously on puree texture w/ poor po intake, now s/p NGT insertion w/ an order for NGT feeding, currently s/p self pulling out of NGT. CURRENT TF:TF held, s/p pulling out NGT: Glucerna 1.2 @ 55ml/hr x 24 hrs PO DIET RECOMMENDATIONS: IF ORAL DIET INDICATED: REGULAR diet/ texture per BARGEMAN ENTERAL NUTRITION RECOMMENDATIONS: Glucerna 1.2 @ 55ml/hr x 24 hrs to provide 1320ml, 1584kcal, 79g prot, 1063ml free water * W/ GI access, resume Glucerna 1.2 @ 15ml/hr x 6 hrs * Advance TF 10ml q 4-6 hrs as tolerated to goal rate * HOB over 30 degrees * Without IVF, 130ml q 6 hrs * TF @ goal meets 100% est kcal/prot needs ADDITIONAL RECOMMENDATIONS: 1) W/ TF, monitor lytes daily, replete as needed (high risk for refeeding) 2) Monitor for hypoglycemia while NPO -> consider maintaining D5 while NPO 3) Monitor need for long acting insulin w/ TF 4) Calibrated bed scale wts 5) Monitor NPO status: NPO/minimal intake status x 10 days .
--- NOTE | 2019-06-28 09:08 | Hematology/Onc Progress Note ---
Assessment/Plan Assessment/Plan Assessment and Recs # 7.7 cm left lobe hepatic mass is concerning for hepatocellular carcinoma, particularly given cirrhosis. A large metastasis is also possible. Consider multiphase hepatic protocol MRI. --> also imaging revealed Right renal hypodensities that are too small to characterize. --> seen by gi and surg --> tumor markers show afp 155, cea 26, ca19.9 1660 --> if afp >200, likely hcc, may still need mri --> at this time, given poor prognosis, would recommend no biopsy --> agree with gi is likely cholangio v hcc v pancreatic with mets --> HOSPICE RECOMMENDED # Pancytopenia -- multiple etiologies and in this case is related to cirrhosis --> peripheral smear has been ordered and does not show significant abnormalities --> Medications have been reviewed --> Continue to monitor for improvement, trend cbc --> Hep panel and HIV NEGATIVE --> US abd ordered to r/o cirrhosis and hepatosplenomegaly --> DOES SHOW SPLENOMEGALY AND CIRRHOSIS++ --> reverse isolation if ANC is <2000 --> Give neupogen if ANC <1000 --> Transfuse if hgb <7 --> plt 113-->51-->34k --> rbc: 2 units 06/26/2019 --> continue on psych meds olanazapine # FTT may need nutrition support --> when off iso may need peg --> abx: ceftriaxone --> alia positive # Coagulopathy - Cirrhosis, ? etiology --> likely will need ffp and vit k if bleeds --> likely to be a chronic issue with cirrhosis # Abd distention, likely ascites --> also r/o COVID-->NEG --> isolation --> s/p para # Dvt ppx scds The timing of this note does not necessarily reflect the time of the patient was seen. Greatly appreciate consultation. Subjective Constitutional: Denies: no symptoms, chills, fever, malaise, weakness, other HEENT: Denies: no symptoms, eye pain, blurred vision, tearing, double vision, ear pain, ear discharge, nose pain, nose congestion, throat pain, throat swelling, mouth pain, mouth swelling, other Respiratory: Denies: no symptoms, cough, shortness of breath, SOB with excertion, SOB at rest, sputum, wheezing, other Gastrointestinal/Abdominal: Denies: no symptoms, abdomen distended, abdominal pain, black stools, tarry stools, blood in stool, constipated, diarrhea, difficulty swallowing, nausea, poor appetite, poor fluid intake, rectal bleeding , vomiting, other Genitourinary: Denies: no symptoms, burning, discharge, frequency, flank pain, hematuria, incontinence, pain, urgency, other Neurologic/Psychiatric: Denies: no symptoms, anxiety, depressed, emotional problems, headache, numbness, paresthesia, pre-existing deficit, seizure, tingling, tremors, weakness, other Allergies: Coded Allergies: PENICILLINS (Verified Allergy, Unknown, 06/18/19) Subjective 06/20 no events, no bleeding, tumor markers still pending, imaging noted 06/21 still somewhat confused this am, trying to crawl out of bed, no bleeding or chills 06/22 seen by gi for peg when off iso, no bleeding, plt 118k 06/23 no events, no bleeding, labs noted, cbc reviewed, no night sweats, uncomfortable still 06/24 covid 19 negative, labs reviewed, afebrile, on ceftriaxone 06/26 s/p 2 units rbc, hgb 8.9, stool ob negative, on abx 06/27 plt are low, remains guarded, prognosis is poor, dw gi Objective Objective Current Medications Medications (Trade) Dose Ordered Sig/Idalia Route PRN Reason Start Time Stop Time Status Last Admin Dose Admin Acetaminophen (Tylenol) 500 mg Q6H PRN ORAL Mild Pain/Temp > 100.5 06/25/19 15:15 07/18/19 15:14 Allopurinol (Zyloprim) 200 mg DAILY ORAL 06/27/19 10:45 07/27/19 10:44 Dextrose (Dextrose 50%) 25 ml Q30M PRN IV Hypoglycemia 06/25/19 15:15 09/17/19 09:44 Dextrose (Dextrose 50%) 50 ml Q30M PRN IV Hypoglycemia 06/25/19 15:15 09/17/19 09:44 Guaifenesin/ Codeine Phosphate (Robitussin with codeine) 5 ml Q6H PRN ORAL For Cough 06/25/19 16:00 07/19/19 09:59 Insulin Aspart (NovoLOG) BEFORE MEALS AND HS SUBQ 06/25/19 16:30 6/26/20 11:29 06/28/19 06:22 Lactulose (Cephulac) 20 gm THREE TIMES A DAY ORAL 06/26/19 09:00 07/26/19 08:59 06/26/19 17:43 Lorazepam (Ativan 2mg/ml 1ml) 1 mg Q4HR PRN IM Agitation 06/27/19 23:30 07/04/19 23:29 06/28/19 04:00 Metoclopramide HCl (Reglan) 2.5 mg Q6H PRN IVP Nausea & Vomiting 06/26/19 08:00 07/26/19 07:59 Midodrine (Pro-Amatine) 2.5 mg THREE TIMES A DAY ORAL 06/27/19 13:00 09/25/19 12:59 Naloxone HCl (Narcan) 0.2 mg Q2M PRN IVP respiratory depression 06/25/19 15:15 09/18/19 11:59 Olanzapine (ZyPREXA) 7.5 mg BID ORAL 06/28/19 09:00 08/12/19 08:59 Pantoprazole (Protonix) 40 mg DAILY IVP 06/28/19 09:00 07/23/19 08:59 Propranolol HCl (Inderal) 15 mg Q8HR ORAL 06/25/19 22:00 07/21/19 13:59 06/26/19 21:20 Tramadol HCl (Ultram) 25 mg Q4H PRN GT severe pain 06/27/19 13:18 07/04/19 13:17 Last 24 Hour Vital Signs Date Time Temp Pulse Resp B/P (MAP) Pulse Ox O2 Delivery O2 Flow Rate FiO2 06/28/19 08:59 Nasal Cannula 2.0 06/28/19 08:00 98.3 67 18 96/53 (67) 94 06/28/19 06:00 103 150/66 06/28/19 04:00 98.4 103 17 150/66 (94) 94 06/28/19 03:37 103 06/28/19 00:00 98.9 100 20 113/56 (75) 95 06/27/19 23:30 108 06/27/19 22:00 102 110/71 06/27/19 21:00 Nasal Cannula 2.0 06/27/19 20:00 98.9 103 16 102/58 (73) 95 06/27/19 19:06 102 06/27/19 16:00 102 06/27/19 16:00 98.6 102 13 110/71 (84) 98 06/27/19 14:00 92 100/63 06/27/19 12:00 92 06/27/19 12:00 97.6 93 19 100/63 (75) 99 06/27/19 09:00 Nasal Cannula 3.0 06/27/19 08:00 79 06/27/19 08:00 97.6 91 19 119/67 (84) 94 06/27/19 05:47 92 150/95 06/27/19 04:00 97.6 81 19 150/95 (113) 91 06/27/19 04:00 92 06/27/19 00:00 93 06/27/19 00:00 98.0 80 17 99/53 (68) 99 06/26/19 21:20 129 127/75 06/26/19 21:00 Nasal Cannula 3.0 06/26/19 20:00 108 06/26/19 20:00 97.3 129 19 127/75 (92) 99 06/26/19 16:00 100 06/26/19 16:00 97.7 102 18 102/53 (69) 99 06/26/19 13:20 104 86/48 06/26/19 12:00 104 06/26/19 12:00 97.5 105 20 86/48 (61) 98 Intake and Output 06/27/19 06/28/19 19:00 07:00 Intake Total 200 ml 600 ml Output Total 290 ml 500 ml Balance -90 ml 100 ml IV Total 200 ml 600 ml Output Urine Total 290 ml 500 ml # Voids 1 # Bowel Movements 1 Labs Test 06/25/19 15:45 06/26/19 07:05 06/26/19 23:30 06/27/19 07:24 Body Fluid Source Paracentesis Body Fluid Volume 27 mL Body Fluid Appearance Bloody (Clear) Body Fluid RBC 255404 /CUMM Body Fluid Total Nucleated Cells 05300 /CUMM Body Fluid Polynuclear WBCs (%) 77 % Body Fluid Mononuclear WBCs (%) 20 % Body Fluid Mesothelial Cells (%) 3 % White Blood Count 9.5 K/UL (4.8-10.8) 13.7 K/UL (4.8-10.8) Red Blood Count 1.65 M/UL (4.20-5.40) 2.18 M/UL (4.20-5.40) Hemoglobin 5.4 G/DL (12.0-16.0) 8.9 G/DL (12.0-16.0) Hematocrit 15.9 % (37.0-47.0) 20.7 % (37.0-47.0) Mean Corpuscular Volume 97 FL (80-99) 95 FL (80-99) Mean Corpuscular Hemoglobin 32.6 PG (27.0-31.0) 41.0 PG (27.0-31.0) Mean Corpuscular Hemoglobin Concent 33.7 G/DL (32.0-36.0) 43.1 G/DL (32.0-36.0) Red Cell Distribution Width 17.9 % (11.6-14.8) 19.8 % (11.6-14.8) Platelet Count 64 K/UL (150-450) 51 K/UL (150-450) Mean Platelet Volume 5.7 FL (6.5-10.1) 5.8 FL (6.5-10.1) Neutrophils (%) (Auto) % (45.0-75.0) % (45.0-75.0) Lymphocytes (%) (Auto) % (20.0-45.0) % (20.0-45.0) Monocytes (%) (Auto) % (1.0-10.0) % (1.0-10.0) Eosinophils (%) (Auto) % (0.0-3.0) % (0.0-3.0) Basophils (%) (Auto) % (0.0-2.0) % (0.0-2.0) Differential Total Cells Counted 100 Neutrophils % (Manual) 79 % (45-75) 80 % (45-75) Lymphocytes % (Manual) 10 % (20-45) 10 % (20-45) Monocytes % (Manual) 11 % (1-10) 10 % (1-10) Eosinophils % (Manual) 0 % (0-3) 0 % (0-3) Basophils % (Manual) 0 % (0-2) 0 % (0-2) Band Neutrophils 0 % (0-8) 0 % (0-8) Platelet Estimate Decreased Decreased Platelet Morphology Normal Normal Polychromasia 1+ 1+ Hypochromasia 1+ 2+ Anisocytosis 1+ 1+ Prothrombin Time 16.7 SEC (9.30-11.50) Prothromb Time International Ratio 1.6 (0.9-1.1) Sodium Level 142 MMOL/L (136-145) 146 MMOL/L (136-145) Potassium Level 4.9 MMOL/L (3.5-5.1) 3.9 MMOL/L (3.5-5.1) Chloride Level 110 MMOL/L (98-107) 113 MMOL/L (98-107) Carbon Dioxide Level 17 MMOL/L (21-32) 20 MMOL/L (21-32) Anion Gap 16 mmol/L (5-15) 13 mmol/L (5-15) Blood Urea Nitrogen 94 mg/dL (7-18) 79 mg/dL (7-18) Creatinine 1.8 MG/DL (0.55-1.30) 1.4 MG/DL (0.55-1.30) Estimat Glomerular Filtration Rate 28.0 mL/min (>60) 37.5 mL/min (>60) Glucose Level 195 MG/DL (74-106) 187 MG/DL (74-106) Calcium Level 7.6 MG/DL (8.5-10.1) 8.0 MG/DL (8.5-10.1) Total Bilirubin 2.1 MG/DL (0.2-1.0) 4.2 MG/DL (0.2-1.0) Direct Bilirubin 1.5 MG/DL (0.0-0.3) 2.5 MG/DL (0.0-0.3) Aspartate Amino Transf (AST/SGOT) 50 U/L (15-37) 56 U/L (15-37) Alanine Aminotransferase (ALT/SGPT) 19 U/L (12-78) 18 U/L (12-78) Alkaline Phosphatase 132 U/L (46-116) 134 U/L (46-116) Total Protein 5.5 G/DL (6.4-8.2) 5.9 G/DL (6.4-8.2) Albumin 2.5 G/DL (3.4-5.0) 2.8 G/DL (3.4-5.0) Globulin 3.0 g/dL 3.1 g/dL Albumin/Globulin Ratio 0.8 (1.0-2.7) 0.9 (1.0-2.7) Stool Occult Blood Negative (NEGATIVE) Uric Acid 11.9 MG/DL (2.6-7.2) Phosphorus Level 2.3 MG/DL (2.5-4.9) Magnesium Level 3.5 MG/DL (1.8-2.4) Test 06/28/19 06:45 White Blood Count 11.6 K/UL (4.8-10.8) Red Blood Count 2.60 M/UL (4.20-5.40) Hemoglobin 8.7 G/DL (12.0-16.0) Hematocrit 25.1 % (37.0-47.0) Mean Corpuscular Volume 96 FL (80-99) Mean Corpuscular Hemoglobin 33.5 PG (27.0-31.0) Mean Corpuscular Hemoglobin Concent 34.8 G/DL (32.0-36.0) Red Cell Distribution Width 17.0 % (11.6-14.8) Platelet Count 34 K/UL (150-450) Mean Platelet Volume 7.6 FL (6.5-10.1) Neutrophils (%) (Auto) % (45.0-75.0) Lymphocytes (%) (Auto) % (20.0-45.0) Monocytes (%) (Auto) % (1.0-10.0) Eosinophils (%) (Auto) % (0.0-3.0) Basophils (%) (Auto) % (0.0-2.0) Differential Total Cells Counted 100 Neutrophils % (Manual) 89 % (45-75) Lymphocytes % (Manual) 1 % (20-45) Monocytes % (Manual) 8 % (1-10) Eosinophils % (Manual) 2 % (0-3) Basophils % (Manual) 0 % (0-2) Band Neutrophils 0 % (0-8) Platelet Estimate Decreased Platelet Morphology Normal Hypochromasia 2+ Anisocytosis 1+ Spherocytes 1+ Prothrombin Time 14.5 SEC (9.30-11.50) Prothromb Time International Ratio 1.4 (0.9-1.1) Sodium Level 147 MMOL/L (136-145) Potassium Level 4.6 MMOL/L (3.5-5.1) Chloride Level 115 MMOL/L (98-107) Carbon Dioxide Level 16 MMOL/L (21-32) Anion Gap 16 mmol/L (5-15) Blood Urea Nitrogen 62 mg/dL (7-18) Creatinine 1.2 MG/DL (0.55-1.30) Estimat Glomerular Filtration Rate 44.8 mL/min (>60) Glucose Level 181 MG/DL (74-106) Calcium Level 7.8 MG/DL (8.5-10.1) Total Bilirubin 3.5 MG/DL (0.2-1.0) Direct Bilirubin 0.1 MG/DL (0.0-0.3) Aspartate Amino Transf (AST/SGOT) 47 U/L (15-37) Alanine Aminotransferase (ALT/SGPT) 27 U/L (12-78) Alkaline Phosphatase 123 U/L (46-116) Total Protein 5.4 G/DL (6.4-8.2) Albumin 2.5 G/DL (3.4-5.0) Globulin 2.9 g/dL Albumin/Globulin Ratio 0.9 (1.0-2.7) Height (Feet): 5 Height (Inches): 3.00 Weight (Pounds): 136 Objective Physical Exam: Vitals: reviewed General: NAD HEENT: nc, at, NG+ Neck: supple Chest: clear breath sounds bilaterally, nc+ Cardiovascular: RRR, no s3, s4 Abdomen: soft, nontender, nd Extremities: no cce, normal range of motion Neuro: alert and oriented : alberto+ Cristobal Staples MD Jun 28, 2019 09:07
--- NOTE | 2019-06-28 09:19 | NUR ---
CASE MANAGEMENT:REVIEW 06/28/19 SI: PNA. HYPOXIA. DEHYDRATION HEPATOCELLULAR CARCINOMA 98.3 103 18 96/53 94% ON 2L/NC WBC+11.6 H/H-8.7/25.1 PLT-34 BUN+62 IS: ZYPREXA PO BID IV PROTONIX QD MIDODRINE PO TID LACTULOSE PO TID INDERAL PO Q8HRS SSI SQ AC+HS : TELEMETRY STATUS DCP: FROM [facility]
--- NOTE | 2019-06-28 09:49 | Nephrology Progress Note ---
Assessment/Plan Problem List: (1) LEANDRO (acute kidney injury) Assessment: Serum creatinine was up to 1.9 now back to 1.2 (2) Hyperkalemia (3) Liver cirrhosis (4) Liver mass (5) Anemia Assessment - LEANDRO , serum creatinine chap[place]ito to 1.6, likely multifactorial, due to underlying liver disease, antibiotics, low blood pressure. - Hyperkalemia - Hypoalbuminemia - Cirrhosis, ? etiology - Large liver mass, suspect CA - poor Px - lung nodules - abd distention, likely ascites - r/o COVID -FTT -Anemia -UTI -DM -gallstones Plan Renal parameters improving patient transfused June 25 Start low-dose midodrine for low blood pressure Start allopurinol p.o. Hyperkalemia resolved. Serum creatinine is lowering Continue slow hydration Neal catheter Avoid nephrotoxics Follow-up with renal parameters Urine studies Per orders Poor prognosis Subjective ROS Limited/Unobtainable: Yes Objective Objective Last 24 Hour Vital Signs Date Time Temp Pulse Resp B/P (MAP) Pulse Ox O2 Delivery O2 Flow Rate FiO2 06/28/19 08:59 Nasal Cannula 2.0 06/28/19 08:00 98.3 67 18 96/53 (67) 94 06/28/19 06:00 103 150/66 06/28/19 04:00 98.4 103 17 150/66 (94) 94 06/28/19 03:37 103 06/28/19 00:00 98.9 100 20 113/56 (75) 95 06/27/19 23:30 108 06/27/19 22:00 102 110/71 06/27/19 21:00 Nasal Cannula 2.0 06/27/19 20:00 98.9 103 16 102/58 (73) 95 06/27/19 19:06 102 06/27/19 16:00 102 06/27/19 16:00 98.6 102 13 110/71 (84) 98 06/27/19 14:00 92 100/63 06/27/19 12:00 92 06/27/19 12:00 97.6 93 19 100/63 (75) 99 Intake and Output 06/27/19 06/28/19 19:00 07:00 Intake Total 200 ml 600 ml Output Total 290 ml 500 ml Balance -90 ml 100 ml IV Total 200 ml 600 ml Output Urine Total 290 ml 500 ml # Voids 1 # Bowel Movements 1 Laboratory Tests 06/28/19 06:45: White Blood Count 11.6H, Red Blood Count 2.60L, Hemoglobin 8.7L, Hematocrit 25.1L, Mean Corpuscular Volume 96, Mean Corpuscular Hemoglobin 33.5H, Mean Corpuscular Hemoglobin Concent 34.8, Red Cell Distribution Width 17.0H, Platelet Count 34L, Mean Platelet Volume 7.6, Neutrophils (%) (Auto) , Lymphocytes (%) (Auto) , Monocytes (%) (Auto) , Eosinophils (%) (Auto) , Basophils (%) (Auto) , Differential Total Cells Counted 100, Neutrophils % ( Manual) 89H, Lymphocytes % (Manual) 1L, Monocytes % (Manual) 8, Eosinophils % ( Manual) 2, Basophils % (Manual) 0, Band Neutrophils 0, Platelet Estimate DecreasedL, Platelet Morphology Normal, Hypochromasia 2+, Anisocytosis 1+, Spherocytes 1+, Prothrombin Time 14.5H, Prothromb Time International Ratio 1.4H , Sodium Level 147H, Potassium Level 4.6, Chloride Level 115H, Carbon Dioxide Level 16L, Anion Gap 16H, Blood Urea Nitrogen 62H, Creatinine 1.2, Estimat Glomerular Filtration Rate 44.8, Glucose Level 181H, Calcium Level 7.8L, Total Bilirubin 3.5H, Direct Bilirubin 0.1, Aspartate Amino Transf (AST/SGOT) 47H, Alanine Aminotransferase (ALT/SGPT) 27, Alkaline Phosphatase 123H, Total Protein 5.4L, Albumin 2.5L, Globulin 2.9, Albumin/Globulin Ratio 0.9L Height (Feet): 5 Height (Inches): 3.00 Weight (Pounds): 136 General Appearance: lethargic, confused Cardiovascular: other - Variable heart rate Respiratory/Chest: decreased breath sounds Abdomen: distended Alex Aguilar MD Jun 28, 2019 09:49
--- NOTE | 2019-06-28 10:31 | Pulmonology Progress Note ---
Assessment/Plan Assessment/Plan IMPRESSION: 1. Probable metastatic pulmonary disease. 2. Negative COVID-19. 3. Hepatocellular mass. Likely carcinoma 4. Schizophrenia. 5. Diabetes mellitus. 6. Anemia; now corrected DISCUSSION: Continue low flow O2 prn CXR no change; looks clear Discussed with Gastroenterology. Repeat COVID 19 negative I will follow carefully. Trip Martines M.D. Subjective Interval Events: None new Constitutional: Reports: no symptoms HEENT: Repors: no symptoms Respiratory: Reports: no symptoms Cardiovascular: Reports: no symptoms Allergies: Coded Allergies: PENICILLINS (Verified Allergy, Unknown, 06/18/19) Objective Last 24 Hour Vital Signs Date Time Temp Pulse Resp B/P (MAP) Pulse Ox O2 Delivery O2 Flow Rate FiO2 06/28/19 08:59 Nasal Cannula 2.0 06/28/19 08:00 98.3 67 18 96/53 (67) 94 06/28/19 06:00 103 150/66 06/28/19 04:00 98.4 103 17 150/66 (94) 94 06/28/19 03:37 103 06/28/19 00:00 98.9 100 20 113/56 (75) 95 06/27/19 23:30 108 06/27/19 22:00 102 110/71 06/27/19 21:00 Nasal Cannula 2.0 06/27/19 20:00 98.9 103 16 102/58 (73) 95 06/27/19 19:06 102 06/27/19 16:00 102 06/27/19 16:00 98.6 102 13 110/71 (84) 98 06/27/19 14:00 92 100/63 06/27/19 12:00 92 06/27/19 12:00 97.6 93 19 100/63 (75) 99 Intake and Output 06/27/19 06/28/19 19:00 07:00 Intake Total 200 ml 600 ml Output Total 290 ml 500 ml Balance -90 ml 100 ml IV Total 200 ml 600 ml Output Urine Total 290 ml 500 ml # Voids 1 # Bowel Movements 1 General Appearance: no acute distress HEENT: normocephalic Respiratory/Chest: chest wall non-tender, lungs clear Cardiovascular: normal peripheral pulses, normal rate Abdomen: normal bowel sounds Laboratory Tests 06/28/19 06:45: White Blood Count 11.6H, Red Blood Count 2.60L, Hemoglobin 8.7L, Hematocrit 25.1L, Mean Corpuscular Volume 96, Mean Corpuscular Hemoglobin 33.5H, Mean Corpuscular Hemoglobin Concent 34.8, Red Cell Distribution Width 17.0H, Platelet Count 34L, Mean Platelet Volume 7.6, Neutrophils (%) (Auto) , Lymphocytes (%) (Auto) , Monocytes (%) (Auto) , Eosinophils (%) (Auto) , Basophils (%) (Auto) , Differential Total Cells Counted 100, Neutrophils % ( Manual) 89H, Lymphocytes % (Manual) 1L, Monocytes % (Manual) 8, Eosinophils % ( Manual) 2, Basophils % (Manual) 0, Band Neutrophils 0, Platelet Estimate DecreasedL, Platelet Morphology Normal, Hypochromasia 2+, Anisocytosis 1+, Spherocytes 1+, Prothrombin Time 14.5H, Prothromb Time International Ratio 1.4H , Sodium Level 147H, Potassium Level 4.6, Chloride Level 115H, Carbon Dioxide Level 16L, Anion Gap 16H, Blood Urea Nitrogen 62H, Creatinine 1.2, Estimat Glomerular Filtration Rate 44.8, Glucose Level 181H, Calcium Level 7.8L, Total Bilirubin 3.5H, Direct Bilirubin 0.1, Aspartate Amino Transf (AST/SGOT) 47H, Alanine Aminotransferase (ALT/SGPT) 27, Alkaline Phosphatase 123H, Total Protein 5.4L, Albumin 2.5L, Globulin 2.9, Albumin/Globulin Ratio 0.9L Current Medications Medications (Trade) Dose Ordered Sig/Idalia Route PRN Reason Start Time Stop Time Status Last Admin Dose Admin Acetaminophen (Tylenol) 500 mg Q6H PRN ORAL Mild Pain/Temp > 100.5 06/25/19 15:15 07/18/19 15:14 Dextrose (Dextrose 50%) 25 ml Q30M PRN IV Hypoglycemia 06/25/19 15:15 09/17/19 09:44 Dextrose (Dextrose 50%) 50 ml Q30M PRN IV Hypoglycemia 06/25/19 15:15 09/17/19 09:44 Guaifenesin/ Codeine Phosphate (Robitussin with codeine) 5 ml Q6H PRN ORAL For Cough 06/25/19 16:00 07/19/19 09:59 Insulin Aspart (NovoLOG) BEFORE MEALS AND HS SUBQ 06/25/19 16:30 09/17/19 11:29 06/28/19 06:22 Lactulose (Cephulac) 20 gm THREE TIMES A DAY ORAL 06/26/19 09:00 07/26/19 08:59 06/26/19 17:43 Lorazepam (Ativan 2mg/ml 1ml) 1 mg Q4HR PRN IM Agitation 06/27/19 23:30 07/04/19 23:29 06/28/19 04:00 Metoclopramide HCl (Reglan) 2.5 mg Q6H PRN IVP Nausea & Vomiting 06/26/19 08:00 07/26/19 07:59 Midodrine (Pro-Amatine) 2.5 mg THREE TIMES A DAY ORAL 06/27/19 13:00 09/25/19 12:59 Naloxone HCl (Narcan) 0.2 mg Q2M PRN IVP respiratory depression 06/25/19 15:15 09/18/19 11:59 Olanzapine (ZyPREXA) 7.5 mg BID ORAL 06/28/19 09:00 08/12/19 08:59 Pantoprazole (Protonix) 40 mg DAILY IVP 06/28/19 09:00 07/23/19 08:59 06/28/19 09:05 Propranolol HCl (Inderal) 15 mg Q8HR ORAL 06/25/19 22:00 07/21/19 13:59 06/26/19 21:20 Tramadol HCl (Ultram) 25 mg Q4H PRN GT severe pain 06/27/19 13:18 07/04/19 13:17 Trip Martines MD Jun 28, 2019 10:31
--- NOTE | 2019-06-28 10:52 | Diagnostic Imaging Report ---
Indications: Ascites Technique: Procedure performed by Dr. Burgess. Ultrasound used to localize optimal puncture site. Sterile prepping and draping right lower quadrant. Local anesthesia with 1% lidocaine. Under real-time ultrasound guidance, puncture peritoneal space using paracentesis needle. Stylet removed. Catheter placed to vacuum bottle suction. Total 7.5 liters of serosanguineous fluid aspirated. Patient tolerated procedure well, without immediate complication. Findings: Followup sonography demonstrates complete resolution of peritoneal fluid. Impression: Successful ultrasound-guided paracentesis, yielding 7.5 liters of fluid
[2019-06-28 12:00] VITALS: BP 110/74
--- NOTE | 2019-06-28 12:02 | NUR ---
NURSE NOTES:Contacted Dr Acuña to update him on patient condition. Patient pulled NG tube out again yesterday, was unable to replace. Called office and gave message to hotel receptionist to inform MD Acuña that patient is not receiving PO mediations as she cannot tolerate anything by mouth.
--- NOTE | 2019-06-28 12:51 | NUR ---
ST NOTES: SWALLOW STATUS: PATIENT SEEN FOR DYSPHAGIA, SEE SWALLOW EVAL REPORT. PATIENT PULLED OUT NGT 3 TIMES PER RN (ALEX). WHEN SHE WAS ON A LIQUIFIED PUREED LIKE NECTAR THICK SOUP DIET WAS POOR OR SHE REFUSED IT. HER INTAKE ON 06/18 WAS REFUSED X2 AND 50%, 06/20 REFUSED X2, 06/21 REFUSED AND 20% X2, 06/22 10% 3 TIMES, AND 06/24 NPO AND NGT. PER GI PEG IS NOT A CHOICE AT THIS TIME DUE TO POOR PX. PER HER SON, SHE C/O NOT EATING DUE TO APPETITE. WHEN I WORKED WITH HER SHE WAS EITHER TOO SLEEPY LIKE NOW OR FOCUSED ON HER PAIN IN HER ABDOMEN (AND SHE WILL CONTINUOUSLY SCREAM OUT). PLAN: REPLACE NGT IF PATIENT IS RECEPTIVE. LEFT MESSAGES WITH DR ELLIOTT AND DR DAVIS TO CALL SON REGARDING HER PROGNOSIS AND INTAKE PREFERENCES SINCE PATIENT SEEMS TO BE PULLING OUT HER NGT REPEATEDLY EVEN WHEN RESTRAINED (LIKELY SHE IS NOT RECEPTIVE TO THIS). Addendum: 06/28/19 at 1254 by ANKITA [employer] PATIENT IS NOW NPO (POSTED SIGN REGARDING ORAL CARE AND ASP PRECAUTIONS WITH NGT FEEDINGS WHEN RUNNING)> Addendum: 06/28/19 at 1304 by ANKITA [employer] ADDENDUM: PATIENT ASKED IF SHE WILL ALLOW US TO PUT BACK IN NGT AND SHE SAID YES [address] ELLIOTT SAID HE WILL CALL THE SON REGARDING HER STATUS AND ? NEED FOR COMFORT CARE VERSUS CONTINUE WITH NGT SINCE PT CONSISTENTLY PULLING TUBE.
--- NOTE | 2019-06-28 13:04 | Infectious Diseases Prog Note ---
Assessment/Plan Assessment/Plan IMPRESSION: Hypoxemia and abnormal CT scan of the chest, more likely metastatic disease. Cirrhosis of liver Portal hypertension, Diabetes mellitus, Hypertension, Cholelithiasis, Anemia, suspected liver neoplasm. Gastric varices RECOMMENDATION: Discontinue Rocephin 06/17, 06/22 COVID-19 test. Prognosis is poor Subjective ROS Limited/Unobtainable: Yes Allergies: Coded Allergies: PENICILLINS (Verified Allergy, Unknown, 06/18/19) Objective Vital Signs Last 24 Hour Vital Signs Date Time Temp Pulse Resp B/P (MAP) Pulse Ox O2 Delivery O2 Flow Rate FiO2 06/28/19 12:00 80 06/28/19 12:00 97.8 106 20 110/74 (86) 100 06/28/19 08:59 Nasal Cannula 2.0 06/28/19 08:00 75 06/28/19 08:00 98.3 67 18 96/53 (67) 94 06/28/19 06:00 103 150/66 06/28/19 04:00 98.4 103 17 150/66 (94) 94 06/28/19 03:37 103 06/28/19 00:00 98.9 100 20 113/56 (75) 95 06/27/19 23:30 108 06/27/19 22:00 102 110/71 06/27/19 21:00 Nasal Cannula 2.0 06/27/19 20:00 98.9 103 16 102/58 (73) 95 06/27/19 19:06 102 06/27/19 16:00 102 06/27/19 16:00 98.6 102 13 110/71 (84) 98 06/27/19 14:00 92 100/63 Height (Feet): 5 Height (Inches): 3.00 Weight (Pounds): 136 HEENT: mucous membranes moist Respiratory/Chest: chest wall non-tender Cardiovascular: tachycardia Abdomen: distended Extremities: no edema Neurologic/Psychiatric: other - lethargic Laboratory Tests Test 06/28/19 06:45 06/28/19 10:25 White Blood Count 11.6 K/UL (4.8-10.8) H Red Blood Count 2.60 M/UL (4.20-5.40) L Hemoglobin 8.7 G/DL (12.0-16.0) L Hematocrit 25.1 % (37.0-47.0) L Mean Corpuscular Volume 96 FL (80-99) Mean Corpuscular Hemoglobin 33.5 PG (27.0-31.0) H Mean Corpuscular Hemoglobin Concent 34.8 G/DL (32.0-36.0) Red Cell Distribution Width 17.0 % (11.6-14.8) H Platelet Count 34 K/UL (150-450) L Mean Platelet Volume 7.6 FL (6.5-10.1) Neutrophils (%) (Auto) % (45.0-75.0) Lymphocytes (%) (Auto) % (20.0-45.0) Monocytes (%) (Auto) % (1.0-10.0) Eosinophils (%) (Auto) % (0.0-3.0) Basophils (%) (Auto) % (0.0-2.0) Differential Total Cells Counted 100 Neutrophils % (Manual) 89 % (45-75) H Lymphocytes % (Manual) 1 % (20-45) L Monocytes % (Manual) 8 % (1-10) Eosinophils % (Manual) 2 % (0-3) Basophils % (Manual) 0 % (0-2) Band Neutrophils 0 % (0-8) Platelet Estimate Decreased L Platelet Morphology Normal Hypochromasia 2+ Anisocytosis 1+ Spherocytes 1+ Prothrombin Time 14.5 SEC (9.30-11.50) H Prothromb Time International Ratio 1.4 (0.9-1.1) H Sodium Level 147 MMOL/L (136-145) H Potassium Level 4.6 MMOL/L (3.5-5.1) Chloride Level 115 MMOL/L (98-107) H Carbon Dioxide Level 16 MMOL/L (21-32) L Anion Gap 16 mmol/L (5-15) H Blood Urea Nitrogen 62 mg/dL (7-18) H Creatinine 1.2 MG/DL (0.55-1.30) Estimat Glomerular Filtration Rate 44.8 mL/min (>60) Glucose Level 181 MG/DL (74-106) H Calcium Level 7.8 MG/DL (8.5-10.1) L Total Bilirubin 3.5 MG/DL (0.2-1.0) H Direct Bilirubin 0.1 MG/DL (0.0-0.3) Aspartate Amino Transf (AST/SGOT) 47 U/L (15-37) H Alanine Aminotransferase (ALT/SGPT) 27 U/L (12-78) Alkaline Phosphatase 123 U/L (46-116) H Total Protein 5.4 G/DL (6.4-8.2) L Albumin 2.5 G/DL (3.4-5.0) L Globulin 2.9 g/dL Albumin/Globulin Ratio 0.9 (1.0-2.7) L Phosphorus Level 2.7 MG/DL (2.5-4.9) HIV (1&2) Antibody Rapid Negative (NEGATIVE) Current Medications Medications (Trade) Dose Ordered Sig/Idalia Route PRN Reason Start Time Stop Time Status Last Admin Dose Admin Acetaminophen (Tylenol) 500 mg Q6H PRN ORAL Mild Pain/Temp > 100.5 06/25/19 15:15 07/18/19 15:14 Dextrose (Dextrose 50%) 25 ml Q30M PRN IV Hypoglycemia 06/25/19 15:15 09/17/19 09:44 Dextrose (Dextrose 50%) 50 ml Q30M PRN IV Hypoglycemia 06/25/19 15:15 09/17/19 09:44 Guaifenesin/ Codeine Phosphate (Robitussin with codeine) 5 ml Q6H PRN ORAL For Cough 06/25/19 16:00 07/19/19 09:59 Insulin Aspart (NovoLOG) BEFORE MEALS AND HS SUBQ 06/25/19 16:30 09/17/19 11:29 06/28/19 06:22 Lactulose (Cephulac) 20 gm THREE TIMES A DAY ORAL 06/26/19 09:00 07/26/19 08:59 06/26/19 17:43 Lorazepam (Ativan 2mg/ml 1ml) 1 mg Q4HR PRN IM Agitation 06/27/19 23:30 07/04/19 23:29 06/28/19 04:00 Metoclopramide HCl (Reglan) 2.5 mg Q6H PRN IVP Nausea & Vomiting 06/26/19 08:00 07/26/19 07:59 Midodrine (Pro-Amatine) 2.5 mg THREE TIMES A DAY ORAL 06/27/19 13:00 09/25/19 12:59 Naloxone HCl (Narcan) 0.2 mg Q2M PRN IVP respiratory depression 06/25/19 15:15 09/18/19 11:59 Olanzapine (ZyPREXA) 7.5 mg BID ORAL 06/28/19 09:00 08/12/19 08:59 Pantoprazole (Protonix) 40 mg DAILY IVP 06/28/19 09:00 07/23/19 08:59 06/28/19 09:05 Propranolol HCl (Inderal) 15 mg Q8HR ORAL 06/25/19 22:00 07/21/19 13:59 06/26/19 21:20 Tramadol HCl (Ultram) 25 mg Q4H PRN GT severe pain 06/27/19 13:18 07/04/19 13:17 Manuel Kemp MD Jun 28, 2019 13:04
--- NOTE | 2019-06-28 13:29 | NUR ---
INSURANCE REVIEW FAXED TO [facility]#[phone] FAX#[phone] REVIEWS/CLINICALS
--- NOTE | 2019-06-28 14:55 | Surgery Progress Note ---
Surgery Progress Note Subjective Additional Comments had para with 7L out being replaced will likely recur as likely malignant otherwise stable but guarded Objective Last 24 Hour Vital Signs Date Time Temp Pulse Resp B/P (MAP) Pulse Ox O2 Delivery O2 Flow Rate FiO2 06/28/19 14:00 80 110/74 06/28/19 12:00 80 06/28/19 12:00 97.8 106 20 110/74 (86) 100 06/28/19 08:59 Nasal Cannula 2.0 06/28/19 08:00 75 06/28/19 08:00 98.3 67 18 96/53 (67) 94 06/28/19 06:00 103 150/66 06/28/19 04:00 98.4 103 17 150/66 (94) 94 06/28/19 03:37 103 06/28/19 00:00 98.9 100 20 113/56 (75) 95 06/27/19 23:30 108 06/27/19 22:00 102 110/71 06/27/19 21:00 Nasal Cannula 2.0 06/27/19 20:00 98.9 103 16 102/58 (73) 95 06/27/19 19:06 102 06/27/19 16:00 102 06/27/19 16:00 98.6 102 13 110/71 (84) 98 I&O Intake and Output 06/27/19 06/28/19 19:00 07:00 Intake Total 200 ml 600 ml Output Total 290 ml 500 ml Balance -90 ml 100 ml IV Total 200 ml 600 ml Output Urine Total 290 ml 500 ml # Voids 1 # Bowel Movements 1 Dressing: other Wound: other Drains: other Cardiovascular: RSR Respiratory: decreased breath sounds Abdomen: soft, distended, non-tender, decreased bowel sounds Extremities: no tenderness, no cyanosis Laboratory Tests Test 06/28/19 06:45 06/28/19 10:25 White Blood Count 11.6 K/UL (4.8-10.8) H Red Blood Count 2.60 M/UL (4.20-5.40) L Hemoglobin 8.7 G/DL (12.0-16.0) L Hematocrit 25.1 % (37.0-47.0) L Mean Corpuscular Volume 96 FL (80-99) Mean Corpuscular Hemoglobin 33.5 PG (27.0-31.0) H Mean Corpuscular Hemoglobin Concent 34.8 G/DL (32.0-36.0) Red Cell Distribution Width 17.0 % (11.6-14.8) H Platelet Count 34 K/UL (150-450) L Mean Platelet Volume 7.6 FL (6.5-10.1) Neutrophils (%) (Auto) % (45.0-75.0) Lymphocytes (%) (Auto) % (20.0-45.0) Monocytes (%) (Auto) % (1.0-10.0) Eosinophils (%) (Auto) % (0.0-3.0) Basophils (%) (Auto) % (0.0-2.0) Differential Total Cells Counted 100 Neutrophils % (Manual) 89 % (45-75) H Lymphocytes % (Manual) 1 % (20-45) L Monocytes % (Manual) 8 % (1-10) Eosinophils % (Manual) 2 % (0-3) Basophils % (Manual) 0 % (0-2) Band Neutrophils 0 % (0-8) Platelet Estimate Decreased L Platelet Morphology Normal Hypochromasia 2+ Anisocytosis 1+ Spherocytes 1+ Prothrombin Time 14.5 SEC (9.30-11.50) H Prothromb Time International Ratio 1.4 (0.9-1.1) H Sodium Level 147 MMOL/L (136-145) H Potassium Level 4.6 MMOL/L (3.5-5.1) Chloride Level 115 MMOL/L (98-107) H Carbon Dioxide Level 16 MMOL/L (21-32) L Anion Gap 16 mmol/L (5-15) H Blood Urea Nitrogen 62 mg/dL (7-18) H Creatinine 1.2 MG/DL (0.55-1.30) Estimat Glomerular Filtration Rate 44.8 mL/min (>60) Glucose Level 181 MG/DL (74-106) H Calcium Level 7.8 MG/DL (8.5-10.1) L Total Bilirubin 3.5 MG/DL (0.2-1.0) H Direct Bilirubin 0.1 MG/DL (0.0-0.3) Aspartate Amino Transf (AST/SGOT) 47 U/L (15-37) H Alanine Aminotransferase (ALT/SGPT) 27 U/L (12-78) Alkaline Phosphatase 123 U/L (46-116) H Total Protein 5.4 G/DL (6.4-8.2) L Albumin 2.5 G/DL (3.4-5.0) L Globulin 2.9 g/dL Albumin/Globulin Ratio 0.9 (1.0-2.7) L Phosphorus Level 2.7 MG/DL (2.5-4.9) HIV (1&2) Antibody Rapid Negative (NEGATIVE) Plan Problems: (1) Abdominal pain Assessment & Plan: [age]-year-old female multiple medical comorbidities presented with abdominal discomfort noted to have abnormal LFTs leukocytosis. CT reviewed liver cirrhotic and there is a mass. Possibly carcinoma likely. HCC. Abdominal exam without peritonitis no acute surgical intervention indicated recommended at this time supportive treatment. Will follow with recommendations thank you tumor markers show afp 155, cea 26, ca19.9 1660 Consider comfort care/hospice can consider biopsy for diagnosis but unfortunately will unlikely help as advanced disease and given differential likely terminal Will follow with recommendations Covid results negative Lower thorax: Unremarkable lung bases. Intraperitoneal space: No free air. Gastrointestinal tract: Unremarkable. No dilation. Bones/joints: Degenerative spine findings and osteopenia. Tubes, lines and devices: Enteric tube with tip and proximal sideport below the gastroesophageal junction. IMPRESSION: 1. Enteric tube with tip and proximal sideport below the gastroesophageal junction. 2. Unremarkable lung bases. 3. No acute abnormality definitively seen. GI placed feeding tube cont feeds as tolerated severe anemia - gi blood loss? transfuse as per heme trend s/p para will monitor exam Thank you The liver is cirrhotic. There is evidence of portal hypertension including splenomegaly and gastric varices. There is a mass in the left lobe, primarily in the lateral segments, but also extending medially. This measures 7.7 x 5 x 4.8 cm in greatest transverse, anteroposterior, and craniocaudal dimensions respectively. This is hypodense/hypoenhancing compared to relatively normal adjacent parenchyma in the portal venous phase. This could reflect early washout of a hepatocellular carcinoma, particularly given cirrhosis. A large metastasis is also possible. Cholelithiasis. 2.2 cm densely calcified stone in the dependent gallbladder. No biliary ductal dilation. Both kidneys demonstrate multiple hypodense lesions, which are too small to characterize. No hydronephrosis. There is no bowel obstruction or perforation. The appendix is not well seen. Leftward pelvic calcification may reflect a subserosal uterine fibroid. No abdominal aortic aneurysm. No acute fracture. IMPRESSION: 7.7 cm left lobe hepatic mass is concerning for hepatocellular carcinoma, particularly given cirrhosis. A large metastasis is also possible. Consider multiphase hepatic protocol MRI. Right renal hypodensities that are too small to characterize. Cholelithiasis. Bay Kearns Jun 28, 2019 14:55
[2019-06-28 16:00] VITALS: BP 99/50
--- NOTE | 2019-06-28 16:25 | General Progress Note ---
Assessment/Plan Assessment/Plan: (1) Intractable pain (2) Metastatic disease possible hepatocellular carcinoma Patient will be continued on Tramadol as needed D/w Dr. Cole and he concurred. Subjective Date patient seen: Jun 28, 2019 Time patient seen: 04:00 - pm ROS Limited/Unobtainable: Yes Allergies: Coded Allergies: PENICILLINS (Verified Allergy, Unknown, 06/18/19) Subjective Patient is in bed now showing no signs of pain. Is s/p paracentesis due to liver cirrhosis causing ascites. D/w nurse. Objective Last 24 Hour Vital Signs Date Time Temp Pulse Resp B/P (MAP) Pulse Ox O2 Delivery O2 Flow Rate FiO2 06/28/19 16:00 97.8 96 20 99/50 (66) 100 06/28/19 14:00 80 110/74 06/28/19 12:00 80 06/28/19 12:00 97.8 106 20 110/74 (86) 100 06/28/19 08:59 Nasal Cannula 2.0 06/28/19 08:00 75 06/28/19 08:00 98.3 67 18 96/53 (67) 94 06/28/19 06:00 103 150/66 06/28/19 04:00 98.4 103 17 150/66 (94) 94 06/28/19 03:37 103 06/28/19 00:00 98.9 100 20 113/56 (75) 95 06/27/19 23:30 108 06/27/19 22:00 102 110/71 06/27/19 21:00 Nasal Cannula 2.0 06/27/19 20:00 98.9 103 16 102/58 (73) 95 06/27/19 19:06 102 Intake and Output 06/27/19 06/28/19 19:00 07:00 Intake Total 200 ml 600 ml Output Total 290 ml 500 ml Balance -90 ml 100 ml IV Total 200 ml 600 ml Output Urine Total 290 ml 500 ml # Voids 1 # Bowel Movements 1 Laboratory Tests 06/28/19 06:45: White Blood Count 11.6H, Red Blood Count 2.60L, Hemoglobin 8.7L, Hematocrit 25.1L, Mean Corpuscular Volume 96, Mean Corpuscular Hemoglobin 33.5H, Mean Corpuscular Hemoglobin Concent 34.8, Red Cell Distribution Width 17.0H, Platelet Count 34L, Mean Platelet Volume 7.6, Neutrophils (%) (Auto) , Lymphocytes (%) (Auto) , Monocytes (%) (Auto) , Eosinophils (%) (Auto) , Basophils (%) (Auto) , Differential Total Cells Counted 100, Neutrophils % ( Manual) 89H, Lymphocytes % (Manual) 1L, Monocytes % (Manual) 8, Eosinophils % ( Manual) 2, Basophils % (Manual) 0, Band Neutrophils 0, Platelet Estimate DecreasedL, Platelet Morphology Normal, Hypochromasia 2+, Anisocytosis 1+, Spherocytes 1+, Prothrombin Time 14.5H, Prothromb Time International Ratio 1.4H , Sodium Level 147H, Potassium Level 4.6, Chloride Level 115H, Carbon Dioxide Level 16L, Anion Gap 16H, Blood Urea Nitrogen 62H, Creatinine 1.2, Estimat Glomerular Filtration Rate 44.8, Glucose Level 181H, Calcium Level 7.8L, Total Bilirubin 3.5H, Direct Bilirubin 0.1, Aspartate Amino Transf (AST/SGOT) 47H, Alanine Aminotransferase (ALT/SGPT) 27, Alkaline Phosphatase 123H, Total Protein 5.4L, Albumin 2.5L, Globulin 2.9, Albumin/Globulin Ratio 0.9L 06/28/19 10:25: Phosphorus Level 2.7, HIV (1&2) Antibody Rapid Negative Height (Feet): 5 Height (Inches): 3.00 Weight (Pounds): 136 General Appearance: no apparent distress EENT: normal ENT inspection Neck: non-tender Respiratory/Chest: decreased breath sounds Abdomen: distended Edema: trace edema Skin: warm/dry Objective Joey Gilmore Jun 28, 2019 16:25
--- NOTE | 2019-06-28 17:04 | NUR ---
NURSE NOTES:Contacted Dr Acuña again to follow up regarding patient not receiving any PO medications due to not being able to place NG tube and patient unable to tolerate PO medications due to failed swallow evaluation.
--- NOTE | 2019-06-28 17:31 | NUR ---
NURSE NOTES:WOUND CARE NOTES:Pt presented on admission with multiple skin breakdown. Non-blanching erythema without induration.(L)7cm x (W)9cm . L heel is boggy with non-blanchable erythema(L)5.5cm x (W)4.5cm. R heel is boggy with non-blanchable erythema(L)6cm x (W)5.3cm. Pt did not exhibit any distress to indicate pain when each heel individually palpated. Tx.Plan: Apply Moisture Barrier Paste to Sacrum. Cover with Optifoam drsg. Change every 3 days and prn. Apply Cavilon Skin Barrier to both Heels. Cover each Heel with Optifoam drsg. change every 7 days and prn. Reposition at least every 2hours or as tolerated. Off-load heels with pillow.
--- NOTE | 2019-06-28 17:42 | NUR ---
NURSE NOTES:Dr Acuña replied and stated to make sure Dr Childers is aware that patient does not have NG tube placement. Dr Childers was notified by myself, yesterday that patient does not have NG tube.
--- NOTE | 2019-06-28 19:10 | NUR ---
NURSE NOTES: Received report from AROLDO Brown. Pt resting in bed, sleeping at this time. responds to touch stimuli, grimaces when reposition. resp even, O2 2LNC in use. no apparent acute distress noted. IV saline lock left hand and LFA intact/clean. Abdomen distended, soft. no c/o N/V reported from previous shift. pt is NPO status, will f/u tx plan.
--- NOTE | 2019-06-28 19:46 | NUR ---
HAND-OFF: Report given to AROLDO Pedroza.
[2019-06-28 20:00] VITALS: BP_SYST 100
--- NOTE | 2019-06-28 21:13 | General Progress Note ---
Assessment/Plan Problem List: (1) Dehydration ICD Codes: E86.0 - Dehydration SNOMED: 68456273 (2) Hypoxia ICD Codes: R09.02 - Hypoxemia SNOMED: 505700936 (3) Abdominal pain ICD Codes: R10.9 - Unspecified abdominal pain SNOMED: 71429091 Qualifiers: Qualified Codes: R10.9 - Unspecified abdominal pain (4) Pneumonia ICD Codes: J18.9 - Pneumonia, unspecified organism SNOMED: 067958591 Qualifiers: Qualified Codes: J18.9 - Pneumonia, unspecified organism (5) HCC (hepatocellular carcinoma) ICD Codes: C22.0 - Liver cell carcinoma SNOMED: 665956625 Assessment/Plan: h/h stable ngt is out thrombocytopenia due to cirrhosis moniter for bleeding cirrhosis cri is stable portal htn gastric varice mets cancer HCC niddm poor prognosis Subjective ROS Limited/Unobtainable: Yes Allergies: Coded Allergies: PENICILLINS (Verified Allergy, Unknown, 06/18/19) Objective Last 24 Hour Vital Signs Date Time Temp Pulse Resp B/P (MAP) Pulse Ox O2 Delivery O2 Flow Rate FiO2 06/28/19 20:00 97.7 98 20 100/ 95 06/28/19 16:00 97.8 96 20 99/50 (66) 100 06/28/19 16:00 95 06/28/19 14:00 80 110/74 06/28/19 12:00 80 06/28/19 12:00 97.8 106 20 110/74 (86) 100 06/28/19 08:59 Nasal Cannula 2.0 06/28/19 08:00 75 06/28/19 08:00 98.3 67 18 96/53 (67) 94 06/28/19 06:00 103 150/66 06/28/19 04:00 98.4 103 17 150/66 (94) 94 06/28/19 03:37 103 06/28/19 00:00 98.9 100 20 113/56 (75) 95 06/27/19 23:30 108 06/27/19 22:00 102 110/71 Intake and Output 06/27/19 06/28/19 19:00 07:00 Intake Total 200 ml 600 ml Output Total 290 ml 500 ml Balance -90 ml 100 ml IV Total 200 ml 600 ml Output Urine Total 290 ml 500 ml # Voids 1 # Bowel Movements 1 Laboratory Tests 06/28/19 06:45: White Blood Count 11.6H, Red Blood Count 2.60L, Hemoglobin 8.7L, Hematocrit 25.1L, Mean Corpuscular Volume 96, Mean Corpuscular Hemoglobin 33.5H, Mean Corpuscular Hemoglobin Concent 34.8, Red Cell Distribution Width 17.0H, Platelet Count 34L, Mean Platelet Volume 7.6, Neutrophils (%) (Auto) , Lymphocytes (%) (Auto) , Monocytes (%) (Auto) , Eosinophils (%) (Auto) , Basophils (%) (Auto) , Differential Total Cells Counted 100, Neutrophils % ( Manual) 89H, Lymphocytes % (Manual) 1L, Monocytes % (Manual) 8, Eosinophils % ( Manual) 2, Basophils % (Manual) 0, Band Neutrophils 0, Platelet Estimate DecreasedL, Platelet Morphology Normal, Hypochromasia 2+, Anisocytosis 1+, Spherocytes 1+, Prothrombin Time 14.5H, Prothromb Time International Ratio 1.4H , Sodium Level 147H, Potassium Level 4.6, Chloride Level 115H, Carbon Dioxide Level 16L, Anion Gap 16H, Blood Urea Nitrogen 62H, Creatinine 1.2, Estimat Glomerular Filtration Rate 44.8, Glucose Level 181H, Calcium Level 7.8L, Total Bilirubin 3.5H, Direct Bilirubin 0.1, Aspartate Amino Transf (AST/SGOT) 47H, Alanine Aminotransferase (ALT/SGPT) 27, Alkaline Phosphatase 123H, Total Protein 5.4L, Albumin 2.5L, Globulin 2.9, Albumin/Globulin Ratio 0.9L 06/28/19 10:25: Phosphorus Level 2.7, HIV (1&2) Antibody Rapid Negative Height (Feet): 5 Height (Inches): 3.00 Weight (Pounds): 136 Era Acuña MD Jun 28, 2019 21:13
--- NOTE | 2019-06-28 22:27 | Psych Consult Progress Note ---
Psychiatry Progress Note Psychiatry Progress Note Subjective cont to have episodes of agitation Medications Current Medications Medications (Trade) Dose Ordered Sig/Idalia Route PRN Reason Start Time Stop Time Status Last Admin Dose Admin Acetaminophen (Tylenol) 500 mg Q6H PRN ORAL Mild Pain/Temp > 100.5 06/25/19 15:15 07/18/19 15:14 Dextrose (Dextrose 50%) 25 ml Q30M PRN IV Hypoglycemia 06/25/19 15:15 09/17/19 09:44 Dextrose (Dextrose 50%) 50 ml Q30M PRN IV Hypoglycemia 06/25/19 15:15 09/17/19 09:44 Guaifenesin/ Codeine Phosphate (Robitussin with codeine) 5 ml Q6H PRN ORAL For Cough 06/25/19 16:00 07/19/19 09:59 Insulin Aspart (NovoLOG) BEFORE MEALS AND HS SUBQ 06/25/19 16:30 09/17/19 11:29 06/28/19 06:22 Lactulose (Cephulac) 20 gm THREE TIMES A DAY ORAL 06/26/19 09:00 07/26/19 08:59 06/26/19 17:43 Lorazepam (Ativan 2mg/ml 1ml) 1 mg Q4HR PRN IM Agitation 06/27/19 23:30 07/04/19 23:29 06/28/19 04:00 Metoclopramide HCl (Reglan) 2.5 mg Q6H PRN IVP Nausea & Vomiting 06/26/19 08:00 07/26/19 07:59 Midodrine (Pro-Amatine) 2.5 mg THREE TIMES A DAY ORAL 06/27/19 13:00 09/25/19 12:59 Naloxone HCl (Narcan) 0.2 mg Q2M PRN IVP respiratory depression 06/25/19 15:15 09/18/19 11:59 Olanzapine (ZyPREXA) 7.5 mg BID ORAL 06/28/19 09:00 08/12/19 08:59 Pantoprazole (Protonix) 40 mg DAILY IVP 06/28/19 09:00 07/23/19 08:59 06/28/19 09:05 Propranolol HCl (Inderal) 15 mg Q8HR ORAL 06/25/19 22:00 07/21/19 13:59 06/26/19 21:20 Tramadol HCl (Ultram) 25 mg Q4H PRN GT severe pain 06/27/19 13:18 07/04/19 13:17 Neurological/Psychiatric: Reports: anxiety, depressed, emotional problems Allergies: Coded Allergies: PENICILLINS (Verified Allergy, Unknown, 06/18/19) Objective Data Height (Feet): 5 Height (Inches): 3.00 Weight (Pounds): 136 General Appearance: no apparent distress, alert, confused, agitated Additional Comments: alert, confused. Mood is agitated. Affect is flat. Thought process is disorganized. Thought content, no suicidal or homicidal ideation. Assessment/Plan Assessment/Plan: PLAN: 1. Lorazepam p.r.n. 2. Olanzapine 5 mg p.o. qhs 3. Continue to follow and readjust the medications. Per Holden MD Jun 28, 2019 22:27
[2019-06-29] VITALS: BP 125/69
[2019-06-29 04:00] VITALS: BP 123/75
[2019-06-29] MEDS: Propranolol 10mg tab ORAL SCH ×3 (06:00→22:00)
[2019-06-29] MEDS: NovoLOG Insulin Flexpen SUBQ SCH ×4 (06:05→20:31)
--- NOTE | 2019-06-29 07:15 | NUR ---
HAND-OFF: Report given to AROLDO Merritt.
--- NOTE | 2019-06-29 07:45 | NUR ---
NURSE NOTES: Recvd pt. Pt is confused and occasionally moaning. Pt is on bilat soft wrist restraints. Pt has two IV sites c/d/i. Per overnight houseperson, she has no NGT was pulled out. Bed in lowest locked position, call light within reach,will continue with plan of care
[2019-06-29 08:00] VITALS: BP 103/48
--- NOTE | 2019-06-29 09:06 | General Progress Note ---
Assessment/Plan Assessment/Plan: Assessment/Plan Assessment/Plan: Assessment - Cirrhosis, ? etiology - Large liver mass, suspect CA - poor Px - lung nodules - abd distention, ascites -FTT -Anemia -UTI -DM -gallstones -GV Recommendations - Cirrhsis w/u ([facility], [facility], [facility], [facility]) -low dose Propranolol -Repeat labs -tumor markers reviewed>>>? cholangio CA with liver mets -pending MRI or liver biopsy _ s/p EGD>>> gastric varices -s/p paracentesis 7 lit albumin lactulose NGTF low dose reglan s/p 2 units PRBC without overt GIB poor prognosis patient is keep pulling her NGT>>> reordered swallow eval had a long D/W her son and oncology yesterday, patient might benefit from Hospice eval Subjective ROS Limited/Unobtainable: No Allergies: Coded Allergies: PENICILLINS (Verified Allergy, Unknown, 06/18/19) Objective Last 24 Hour Vital Signs Date Time Temp Pulse Resp B/P (MAP) Pulse Ox O2 Delivery O2 Flow Rate FiO2 06/29/19 08:00 97.7 101 18 103/48 (66) 100 06/29/19 06:00 111 123/75 06/29/19 04:00 Nasal Cannula 2.0 06/29/19 04:00 116 06/29/19 04:00 97.9 111 20 123/75 (91) 98 06/29/19 00:00 118 06/29/19 00:00 97.3 117 18 125/69 (87) 95 06/28/19 23:59 Nasal Cannula 2.0 06/28/19 22:00 98 100/47 06/28/19 21:00 Nasal Cannula 2.0 06/28/19 20:00 97.7 98 20 100/ 95 06/28/19 20:00 98 06/28/19 16:00 97.8 96 20 99/50 (66) 100 06/28/19 16:00 95 06/28/19 14:00 80 110/74 06/28/19 12:00 80 06/28/19 12:00 97.8 106 20 110/74 (86) 100 Intake and Output 06/28/19 06/29/19 19:00 07:00 Output Total 150 ml 250 ml Balance -150 ml -250 ml Output Urine Total 150 ml 250 ml Laboratory Tests 06/28/19 10:25: Phosphorus Level 2.7, HIV (1&2) Antibody Rapid Negative Height (Feet): 5 Height (Inches): 3.00 Weight (Pounds): 136 General Appearance: alert, lethargic EENT: normal ENT inspection Neck: supple Cardiovascular: normal rate Respiratory/Chest: decreased breath sounds Abdomen: normal bowel sounds, non tender, soft Extremities: non-tender Howard Childers MD Jun 29, 2019 09:06
--- NOTE | 2019-06-29 09:09 | NUR ---
NURSE NOTES: called Dr Childers to notify pt has pulled out NGT. DR mendez. requested repeat ST swallow eval to determine new diet. Contacted Ruth MENENDEZ for re-evaluation
[2019-06-29 09:55] LABS: HEMATOCRIT 28.2 % (37.0-47.0); HEMOGLOBIN 9.6 G/DL (12.0-16.0); MEAN CORPUSCULAR VOLUME 97 FL (80-99); PLATELET COUNT 61 K/UL (150-450); RED BLOOD COUNT 2.91 M/UL (4.20-5.40); RED CELL DISTRIBUTION WIDTH 17.7 % (11.6-14.8)
--- NOTE | 2019-06-29 10:05 | NUR ---
WEEKLY SWALLOW/SPEECH SUMMARY: SEEN FOR DYSPHAGIA, SEE SWALLOW EVALUATION REPORT. S: ALERT BUT CONFUSED AND POOR FOLLOWING COMMANDS. CAN EXPRESS SELF BUT DOESN'T OPEN MOUTH NOR ARTICULATE CLEARLY. CAN YELL BUT USUALLY SPEAKS IN SOFTER VOICE WHEN ST WITH HER. DOES BETTER WHEN ASKED TO OPEN MOUTH MORE, EXAGGERATE SOUNDS, AND SPEAK LOUDER OR REPEAT. NEEDS FULL SPEECH EVAL. HAD SON TALK TO HER ON THE PHONE AND ENCOURAGE HER TO EAT MORE. HE SHARED THAT DR ELLIOTT, GI, TOLD HIM HIS MOTHER NEEDS NGT OR PO INTAKE SINCE SHE IS NOT A SAFE CANDIDATE FOR PEG AT THIS TIME. O/A: REASSESS FOR PO INTAKE PULLED OUT NGT X2 PER RN. DR ELLIOTT SAID SHE IS NOT SAFE FOR PEG AT THIS TIME. AWAITING BIOPSY FOR LIVER MASS. PATIENT IS NPO AND HAS HAD MIN PO FOR MANY DAYS. GIVEN TRIALS OF THIN LIQUID TSP, HELD IN MOUTH 5-6 SECONDS, SWALLOWED WITH WEAK ELEVATION, COUGHED AND POSSIBLY ASPIRATED AFTER THE SWALLOW X2 (FIRST SWALLOW WARMUP SWALLOW) GIVEN TSP NECTAR THICK LIQUIDS, NEEDED MAX CUES TO MOVE TONGUE BACK, SWALLOWED IN 5 SECONDS, SWALLOWED 1-2 MORE TIMES SPONTANEOUSLY NO ORAL RESIDUE NOR OVERT ASPIRATION. HOLD ON PUREED FOR NOW SINCE TAKES TOO LONG WITH NECTAR THICK LIQUIDS. GOALS MET FOR STAFF EDUCATED/TRAINED IN POSTED ORAL CARE NEEDS AND ASPIRATION PRECAUTIONS WITH LIQUIFIED PUREED LIKE NECTAR THICK SOUP CONSISTENCY (ADD GLUCERNA TID) AND FEED THROUGHOUT THE DAY TOLERATED. GOALS NOT MET FOR INTAKE SINCE NPO AND WHEN TAKING PO IF WAS POOR OR SHE REFUSED. NEEDS ORAL CARE RIGHT UPPER TOOTH LOOKS BLACK AND OTHER TEETH NEED CLEANING/BRUSHING IF TOLERATED. PLAN: INITIATE LIQUIFIED PUREED LIKE NECTAR THICK SOUP CONSISTENCY AND NECTAR THICK LIQUIDS TSP ONLY WITH OTHER ASPIRATION PRECAUTIONS ABOVE BED AND ONE TO ONE FEEDING. CRUSH CRUSHABLE MEDS AND MAKE NECTAR THICK CONSISTENCY. NEED ORAL CARE ESPECIALLY TOOTH BRUSHING (NOT THE BLACK TOOTH) AND DENTAL CONSULT BROOKE TO REDUCE BACTERIAL BUILDUP. CONSIDER MODIFIED BARIUM SWALLOW STUDY WHEN CONSISTENTLY ALERT TO FURTHER ASSESS SWALLOW, DETERMINE SILENT ASP RISK, AND ATTEMPT TRIAL TX. Addendum: 06/29/19 at 1126 by ANKITA LUKE PER PATIENT'S SON, HE WANTS HIS SISTER, MARYELLEN, TO BE CONTACTED 2ND IF HE IS NOT AVAILABLE AND HIS AUNT IS THE 3RD CONTACT BUT SHE WILL NOT MAKE ANY DECISION ABOUT HER CARE. THE ADULT CHILDREN ARE MAKING THEIR MOTHER'S DECISIONS.
[2019-06-29] MEDS: Pantoprazole Inj IVP SCH (10:09)
[2019-06-29] MEDS: Lactulose 20gm/30ml UDC ORAL SCH ×3 (10:09→17:39)
[2019-06-29 10:10] LABS: ANION GAP 9 mmol/L (5-15); BLOOD UREA NITROGEN 68 mg/dL (7-18); CALCIUM 8.1 MG/DL (8.5-10.1); CARBON DIOXIDE 21 MMOL/L (21-32); CHLORIDE 116 MMOL/L (98-107); CREATININE 1.2 MG/DL (0.55-1.30); POTASSIUM 4.8 MMOL/L (3.5-5.1); SODIUM 146 MMOL/L (136-145)
--- NOTE | 2019-06-29 10:22 | Pulmonology Progress Note ---
Assessment/Plan Assessment/Plan IMPRESSION: 1. Probable metastatic pulmonary disease. 2. Negative COVID-19. 3. Hepatocellular mass. Likely carcinoma 4. Schizophrenia. 5. Diabetes mellitus. 6. Anemia; now corrected DISCUSSION: Continue low flow O2 prn CXR no change; looks clear Discussed with Gastroenterology. Repeat COVID 19 negative Agree with hospice Trip Martines M.D. Subjective Interval Events: None new Constitutional: Reports: no symptoms HEENT: Repors: no symptoms Respiratory: Reports: no symptoms Cardiovascular: Reports: no symptoms Allergies: Coded Allergies: PENICILLINS (Verified Allergy, Unknown, 06/18/19) Objective Last 24 Hour Vital Signs Date Time Temp Pulse Resp B/P (MAP) Pulse Ox O2 Delivery O2 Flow Rate FiO2 06/29/19 08:00 97.7 101 18 103/48 (66) 100 06/29/19 06:00 111 123/75 06/29/19 04:00 Nasal Cannula 2.0 06/29/19 04:00 116 06/29/19 04:00 97.9 111 20 123/75 (91) 98 06/29/19 00:00 118 06/29/19 00:00 97.3 117 18 125/69 (87) 95 06/28/19 23:59 Nasal Cannula 2.0 06/28/19 22:00 98 100/47 06/28/19 21:00 Nasal Cannula 2.0 06/28/19 20:00 97.7 98 20 100/ 95 06/28/19 20:00 98 06/28/19 16:00 97.8 96 20 99/50 (66) 100 06/28/19 16:00 95 06/28/19 14:00 80 110/74 06/28/19 12:00 80 06/28/19 12:00 97.8 106 20 110/74 (86) 100 Intake and Output 06/28/19 06/29/19 19:00 07:00 Output Total 150 ml 250 ml Balance -150 ml -250 ml Output Urine Total 150 ml 250 ml General Appearance: no acute distress HEENT: normocephalic Respiratory/Chest: chest wall non-tender, lungs clear Cardiovascular: normal peripheral pulses Abdomen: normal bowel sounds Laboratory Tests 06/28/19 10:25: Phosphorus Level 2.7, HIV (1&2) Antibody Rapid Negative 06/29/19 09:15: White Blood Count 15.0H, Red Blood Count 2.91L, Hemoglobin 9.6L, Hematocrit 28.2L, Mean Corpuscular Volume 97, Mean Corpuscular Hemoglobin 33.0H, Mean Corpuscular Hemoglobin Concent 34.1, Red Cell Distribution Width 17.7H, Platelet Count 61#L, Mean Platelet Volume 6.8, Neutrophils (%) (Auto) , Lymphocytes (%) (Auto) , Monocytes (%) (Auto) , Eosinophils (%) (Auto) , Basophils (%) (Auto) , Neutrophils % (Manual) [Pending], Lymphocytes % (Manual) [Pending], Platelet Estimate [Pending], Platelet Morphology [Pending], Sodium Level 146H, Potassium Level 4.8, Chloride Level 116H, Carbon Dioxide Level 21, Anion Gap 9, Blood Urea Nitrogen 68H, Creatinine 1.2, Estimat Glomerular Filtration Rate 44.8, Glucose Level 149H, Calcium Level 8.1L Current Medications Medications (Trade) Dose Ordered Sig/Idalia Route PRN Reason Start Time Stop Time Status Last Admin Dose Admin Acetaminophen (Tylenol) 500 mg Q6H PRN ORAL Mild Pain/Temp > 100.5 06/25/19 15:15 07/18/19 15:14 Dextrose (Dextrose 50%) 25 ml Q30M PRN IV Hypoglycemia 06/25/19 15:15 09/17/19 09:44 Dextrose (Dextrose 50%) 50 ml Q30M PRN IV Hypoglycemia 06/25/19 15:15 09/17/19 09:44 Guaifenesin/ Codeine Phosphate (Robitussin with codeine) 5 ml Q6H PRN ORAL For Cough 06/25/19 16:00 07/19/19 09:59 Insulin Aspart (NovoLOG) BEFORE MEALS AND HS SUBQ 06/25/19 16:30 09/17/19 11:29 06/28/19 06:22 Lactulose (Cephulac) 20 gm THREE TIMES A DAY ORAL 06/26/19 09:00 07/26/19 08:59 06/29/19 10:09 Lorazepam (Ativan 2mg/ml 1ml) 1 mg Q4HR PRN IM Agitation 06/27/19 23:30 07/04/19 23:29 06/28/19 23:49 Metoclopramide HCl (Reglan) 2.5 mg Q6H PRN IVP Nausea & Vomiting 06/26/19 08:00 07/26/19 07:59 Midodrine (Pro-Amatine) 2.5 mg THREE TIMES A DAY ORAL 06/27/19 13:00 09/25/19 12:59 06/29/19 10:09 Naloxone HCl (Narcan) 0.2 mg Q2M PRN IVP respiratory depression 06/25/19 15:15 09/18/19 11:59 Olanzapine (ZyPREXA) 7.5 mg BID ORAL 06/28/19 09:00 08/12/19 08:59 06/29/19 10:09 Pantoprazole (Protonix) 40 mg DAILY IVP 06/28/19 09:00 07/23/19 08:59 06/29/19 10:09 Propranolol HCl (Inderal) 15 mg Q8HR ORAL 06/25/19 22:00 07/21/19 13:59 06/26/19 21:20 Tramadol HCl (Ultram) 25 mg Q4H PRN GT severe pain 06/27/19 13:18 07/04/19 13:17 Trip Martines MD Jun 29, 2019 10:22
--- NOTE | 2019-06-29 10:59 | Infectious Diseases Prog Note ---
Assessment/Plan Assessment/Plan IMPRESSION: Hypoxemia and abnormal CT scan of the chest, more likely metastatic disease. Cirrhosis of liver Portal hypertension, Diabetes mellitus, Hypertension, Cholelithiasis, Anemia, suspected liver neoplasm. Gastric varices RECOMMENDATION: Observe off antibiotic 06/17, 06/22 COVID-19 test. Prognosis is poor Subjective ROS Limited/Unobtainable: Yes Neurologic: Reports: confusion, other - on restraint Allergies: Coded Allergies: PENICILLINS (Verified Allergy, Unknown, 06/18/19) Objective Vital Signs Last 24 Hour Vital Signs Date Time Temp Pulse Resp B/P (MAP) Pulse Ox O2 Delivery O2 Flow Rate FiO2 06/29/19 08:00 97.7 101 18 103/48 (66) 100 06/29/19 06:00 111 123/75 06/29/19 04:00 Nasal Cannula 2.0 06/29/19 04:00 116 06/29/19 04:00 97.9 111 20 123/75 (91) 98 06/29/19 00:00 118 06/29/19 00:00 97.3 117 18 125/69 (87) 95 06/28/19 23:59 Nasal Cannula 2.0 06/28/19 22:00 98 100/47 06/28/19 21:00 Nasal Cannula 2.0 06/28/19 20:00 97.7 98 20 100/ 95 06/28/19 20:00 98 06/28/19 16:00 97.8 96 20 99/50 (66) 100 06/28/19 16:00 95 06/28/19 14:00 80 110/74 06/28/19 12:00 80 06/28/19 12:00 97.8 106 20 110/74 (86) 100 Height (Feet): 5 Height (Inches): 3.00 Weight (Pounds): 136 HEENT: other - icterus Respiratory/Chest: lungs clear Cardiovascular: tachycardia Abdomen: distended, other - ascites Neurologic/Psychiatric: alert, responsive, disoriented Laboratory Tests Test 06/29/19 09:15 White Blood Count 15.0 K/UL (4.8-10.8) H Red Blood Count 2.91 M/UL (4.20-5.40) L Hemoglobin 9.6 G/DL (12.0-16.0) L Hematocrit 28.2 % (37.0-47.0) L Mean Corpuscular Volume 97 FL (80-99) Mean Corpuscular Hemoglobin 33.0 PG (27.0-31.0) H Mean Corpuscular Hemoglobin Concent 34.1 G/DL (32.0-36.0) Red Cell Distribution Width 17.7 % (11.6-14.8) H Platelet Count 61 K/UL (150-450) #L Mean Platelet Volume 6.8 FL (6.5-10.1) Neutrophils (%) (Auto) % (45.0-75.0) Lymphocytes (%) (Auto) % (20.0-45.0) Monocytes (%) (Auto) % (1.0-10.0) Eosinophils (%) (Auto) % (0.0-3.0) Basophils (%) (Auto) % (0.0-2.0) Differential Total Cells Counted 100 Neutrophils % (Manual) 84 % (45-75) H Lymphocytes % (Manual) 5 % (20-45) L Monocytes % (Manual) 10 % (1-10) Eosinophils % (Manual) 1 % (0-3) Basophils % (Manual) 0 % (0-2) Band Neutrophils 0 % (0-8) Platelet Estimate Decreased L Platelet Morphology Normal Hypochromasia 2+ Anisocytosis 2+ Sodium Level 146 MMOL/L (136-145) H Potassium Level 4.8 MMOL/L (3.5-5.1) Chloride Level 116 MMOL/L (98-107) H Carbon Dioxide Level 21 MMOL/L (21-32) Anion Gap 9 mmol/L (5-15) Blood Urea Nitrogen 68 mg/dL (7-18) H Creatinine 1.2 MG/DL (0.55-1.30) Estimat Glomerular Filtration Rate 44.8 mL/min (>60) Glucose Level 149 MG/DL (74-106) H Calcium Level 8.1 MG/DL (8.5-10.1) L Current Medications Medications (Trade) Dose Ordered Sig/Idalia Route PRN Reason Start Time Stop Time Status Last Admin Dose Admin Acetaminophen (Tylenol) 500 mg Q6H PRN ORAL Mild Pain/Temp > 100.5 06/25/19 15:15 07/18/19 15:14 Dextrose (Dextrose 50%) 25 ml Q30M PRN IV Hypoglycemia 06/25/19 15:15 09/17/19 09:44 Dextrose (Dextrose 50%) 50 ml Q30M PRN IV Hypoglycemia 06/25/19 15:15 09/17/19 09:44 Guaifenesin/ Codeine Phosphate (Robitussin with codeine) 5 ml Q6H PRN ORAL For Cough 06/25/19 16:00 07/19/19 09:59 Insulin Aspart (NovoLOG) BEFORE MEALS AND HS SUBQ 06/25/19 16:30 09/17/19 11:29 06/28/19 06:22 Lactulose (Cephulac) 20 gm THREE TIMES A DAY ORAL 06/26/19 09:00 07/26/19 08:59 06/29/19 10:09 Lorazepam (Ativan 2mg/ml 1ml) 1 mg Q4HR PRN IM Agitation 06/27/19 23:30 07/04/19 23:29 06/28/19 23:49 Metoclopramide HCl (Reglan) 2.5 mg Q6H PRN IVP Nausea & Vomiting 06/26/19 08:00 07/26/19 07:59 Midodrine (Pro-Amatine) 2.5 mg THREE TIMES A DAY ORAL 06/27/19 13:00 09/25/19 12:59 06/29/19 10:09 Naloxone HCl (Narcan) 0.2 mg Q2M PRN IVP respiratory depression 06/25/19 15:15 09/18/19 11:59 Olanzapine (ZyPREXA) 7.5 mg BID ORAL 06/28/19 09:00 08/12/19 08:59 06/29/19 10:09 Pantoprazole (Protonix) 40 mg DAILY IVP 06/28/19 09:00 07/23/19 08:59 06/29/19 10:09 Propranolol HCl (Inderal) 15 mg Q8HR ORAL 06/25/19 22:00 07/21/19 13:59 06/26/19 21:20 Tramadol HCl (Ultram) 25 mg Q4H PRN GT severe pain 06/27/19 13:18 07/04/19 13:17 Manuel Kemp MD Jun 29, 2019 10:59
[2019-06-29 12:00] VITALS: BP 106/56
--- NOTE | 2019-06-29 12:46 | Surgery Progress Note ---
Surgery Progress Note Subjective Additional Comments ill appearing no acute events labs noted Objective Last 24 Hour Vital Signs Date Time Temp Pulse Resp B/P (MAP) Pulse Ox O2 Delivery O2 Flow Rate FiO2 06/29/19 08:00 97.7 101 18 103/48 (66) 100 06/29/19 06:00 111 123/75 06/29/19 04:00 Nasal Cannula 2.0 06/29/19 04:00 116 06/29/19 04:00 97.9 111 20 123/75 (91) 98 06/29/19 00:00 118 06/29/19 00:00 97.3 117 18 125/69 (87) 95 06/28/19 23:59 Nasal Cannula 2.0 06/28/19 22:00 98 100/47 06/28/19 21:00 Nasal Cannula 2.0 06/28/19 20:00 97.7 98 20 100/ 95 06/28/19 20:00 98 06/28/19 16:00 97.8 96 20 99/50 (66) 100 06/28/19 16:00 95 06/28/19 14:00 80 110/74 I&O Intake and Output 06/28/19 06/29/19 19:00 07:00 Output Total 150 ml 250 ml Balance -150 ml -250 ml Output Urine Total 150 ml 250 ml Drains: none Cardiovascular: RSR Respiratory: clear, decreased breath sounds Abdomen: soft, distended, non-tender, decreased bowel sounds Extremities: no tenderness, no cyanosis Laboratory Tests Test 06/29/19 09:15 White Blood Count 15.0 K/UL (4.8-10.8) H Red Blood Count 2.91 M/UL (4.20-5.40) L Hemoglobin 9.6 G/DL (12.0-16.0) L Hematocrit 28.2 % (37.0-47.0) L Mean Corpuscular Volume 97 FL (80-99) Mean Corpuscular Hemoglobin 33.0 PG (27.0-31.0) H Mean Corpuscular Hemoglobin Concent 34.1 G/DL (32.0-36.0) Red Cell Distribution Width 17.7 % (11.6-14.8) H Platelet Count 61 K/UL (150-450) #L Mean Platelet Volume 6.8 FL (6.5-10.1) Neutrophils (%) (Auto) % (45.0-75.0) Lymphocytes (%) (Auto) % (20.0-45.0) Monocytes (%) (Auto) % (1.0-10.0) Eosinophils (%) (Auto) % (0.0-3.0) Basophils (%) (Auto) % (0.0-2.0) Differential Total Cells Counted 100 Neutrophils % (Manual) 84 % (45-75) H Lymphocytes % (Manual) 5 % (20-45) L Monocytes % (Manual) 10 % (1-10) Eosinophils % (Manual) 1 % (0-3) Basophils % (Manual) 0 % (0-2) Band Neutrophils 0 % (0-8) Platelet Estimate Decreased L Platelet Morphology Normal Hypochromasia 2+ Anisocytosis 2+ Sodium Level 146 MMOL/L (136-145) H Potassium Level 4.8 MMOL/L (3.5-5.1) Chloride Level 116 MMOL/L (98-107) H Carbon Dioxide Level 21 MMOL/L (21-32) Anion Gap 9 mmol/L (5-15) Blood Urea Nitrogen 68 mg/dL (7-18) H Creatinine 1.2 MG/DL (0.55-1.30) Estimat Glomerular Filtration Rate 44.8 mL/min (>60) Glucose Level 149 MG/DL (74-106) H Calcium Level 8.1 MG/DL (8.5-10.1) L Plan Problems: (1) Abdominal pain Assessment & Plan: [age]-year-old female multiple medical comorbidities presented with abdominal discomfort noted to have abnormal LFTs leukocytosis. CT reviewed liver cirrhotic and there is a mass. Possibly carcinoma likely. HCC. Abdominal exam without peritonitis no acute surgical intervention indicated recommended at this time supportive treatment. Will follow with recommendations thank you tumor markers show afp 155, cea 26, ca19.9 [id number] Consider comfort care/hospice can consider biopsy for diagnosis but unfortunately will unlikely help as advanced disease and given differential likely terminal Will follow with recommendations Covid results negative Lower thorax: Unremarkable lung bases. Intraperitoneal space: No free air. Gastrointestinal tract: Unremarkable. No dilation. Bones/joints: Degenerative spine findings and osteopenia. Tubes, lines and devices: Enteric tube with tip and proximal sideport below the gastroesophageal junction. IMPRESSION: 1. Enteric tube with tip and proximal sideport below the gastroesophageal junction. 2. Unremarkable lung bases. 3. No acute abnormality definitively seen. GI placed feeding tube cont feeds as tolerated severe anemia - gi blood loss? transfuse as per heme trend s/p para will monitor exam Thank you Pt presented on admission with multiple skin breakdown. Non-blanching erythema without induration.(L)7cm x (W)9cm . L heel is boggy with non-blanchable erythema(L)5.5cm x (W)4.5cm. R heel is boggy with non-blanchable erythema(L)6cm x (W)5.3cm. Pt did not exhibit any distress to indicate pain when each heel individually palpated. Tx.Plan: Apply Moisture Barrier Paste to Sacrum. Cover with Optifoam drsg. Change every 3 days and prn. Apply Cavilon Skin Barrier to both Heels. Cover each Heel with Optifoam drsg. change every 7 days and prn. Reposition at least every 2hours or as tolerated. Off-load heels with pillow. The liver is cirrhotic. There is evidence of portal hypertension including splenomegaly and gastric varices. There is a mass in the left lobe, primarily in the lateral segments, but also extending medially. This measures 7.7 x 5 x 4.8 cm in greatest transverse, anteroposterior, and craniocaudal dimensions respectively. This is hypodense/hypoenhancing compared to relatively normal adjacent parenchyma in the portal venous phase. This could reflect early washout of a hepatocellular carcinoma, particularly given cirrhosis. A large metastasis is also possible. Cholelithiasis. 2.2 cm densely calcified stone in the dependent gallbladder. No biliary ductal dilation. Both kidneys demonstrate multiple hypodense lesions, which are too small to characterize. No hydronephrosis. There is no bowel obstruction or perforation. The appendix is not well seen. Leftward pelvic calcification may reflect a subserosal uterine fibroid. No abdominal aortic aneurysm. No acute fracture. IMPRESSION: 7.7 cm left lobe hepatic mass is concerning for hepatocellular carcinoma, particularly given cirrhosis. A large metastasis is also possible. Consider multiphase hepatic protocol MRI. Right renal hypodensities that are too small to characterize. Cholelithiasis. [place]ns Jun 29, 2019 12:46
--- NOTE | 2019-06-29 13:34 | Nephrology Progress Note ---
Assessment/Plan Problem List: (1) LEANDRO (acute kidney injury) Assessment: Serum creatinine was up to 1.9 now back to 1.2 (2) Hyperkalemia (3) Liver cirrhosis (4) Liver mass (5) Anemia Assessment - LEANDRO , serum creatinine chap[place]ito to 1.6, likely multifactorial, due to underlying liver disease, antibiotics, low blood pressure. - Hyperkalemia - Hypoalbuminemia - Cirrhosis, ? etiology - Large liver mass, suspect CA - poor Px - lung nodules - abd distention, likely ascites - r/o COVID -FTT -Anemia -UTI -DM -gallstones Plan Renal parameters improving patient transfused June 25 Start low-dose midodrine for low blood pressure Start allopurinol p.o. Hyperkalemia resolved. Serum creatinine is lowering Continue slow hydration Neal catheter Avoid nephrotoxics Follow-up with renal parameters Urine studies Per orders Poor prognosis Subjective ROS Limited/Unobtainable: No Constitutional: Reports: malaise, weakness Objective Objective Last 24 Hour Vital Signs Date Time Temp Pulse Resp B/P (MAP) Pulse Ox O2 Delivery O2 Flow Rate FiO2 06/29/19 12:00 96.8 102 19 106/56 (73) 98 06/29/19 08:00 97.7 101 18 103/48 (66) 100 06/29/19 06:00 111 123/75 06/29/19 04:00 Nasal Cannula 2.0 06/29/19 04:00 116 06/29/19 04:00 97.9 111 20 123/75 (91) 98 06/29/19 00:00 118 06/29/19 00:00 97.3 117 18 125/69 (87) 95 06/28/19 23:59 Nasal Cannula 2.0 06/28/19 22:00 98 100/47 06/28/19 21:00 Nasal Cannula 2.0 06/28/19 20:00 97.7 98 20 100/ 95 06/28/19 20:00 98 06/28/19 16:00 97.8 96 20 99/50 (66) 100 06/28/19 16:00 95 06/28/19 14:00 80 110/74 Intake and Output 06/28/19 06/29/19 19:00 07:00 Output Total 150 ml 250 ml Balance -150 ml -250 ml Output Urine Total 150 ml 250 ml Current Medications Medications (Trade) Dose Ordered Sig/Idalia Route PRN Reason Start Time Stop Time Status Last Admin Dose Admin Acetaminophen (Tylenol) 500 mg Q6H PRN ORAL Mild Pain/Temp > 100.5 06/25/19 15:15 07/18/19 15:14 Dextrose (Dextrose 50%) 25 ml Q30M PRN IV Hypoglycemia 06/25/19 15:15 09/17/19 09:44 Dextrose (Dextrose 50%) 50 ml Q30M PRN IV Hypoglycemia 06/25/19 15:15 09/17/19 09:44 Guaifenesin/ Codeine Phosphate (Robitussin with codeine) 5 ml Q6H PRN ORAL For Cough 06/25/19 16:00 07/19/19 09:59 Insulin Aspart (NovoLOG) BEFORE MEALS AND HS SUBQ 06/25/19 16:30 09/17/19 11:29 06/28/19 06:22 Lactulose (Cephulac) 20 gm THREE TIMES A DAY ORAL 06/26/19 09:00 07/26/19 08:59 06/29/19 10:09 Lorazepam (Ativan 2mg/ml 1ml) 1 mg Q4HR PRN IM Agitation 06/27/19 23:30 07/04/19 23:29 06/28/19 23:49 Metoclopramide HCl (Reglan) 2.5 mg Q6H PRN IVP Nausea & Vomiting 06/26/19 08:00 07/26/19 07:59 Midodrine (Pro-Amatine) 2.5 mg THREE TIMES A DAY ORAL 06/27/19 13:00 09/25/19 12:59 06/29/19 10:09 Naloxone HCl (Narcan) 0.2 mg Q2M PRN IVP respiratory depression 06/25/19 15:15 09/18/19 11:59 Olanzapine (ZyPREXA) 7.5 mg BID ORAL 06/28/19 09:00 08/12/19 08:59 06/29/19 10:09 Pantoprazole (Protonix) 40 mg DAILY IVP 06/28/19 09:00 07/23/19 08:59 06/29/19 10:09 Propranolol HCl (Inderal) 15 mg Q8HR ORAL 06/25/19 22:00 07/21/19 13:59 06/26/19 21:20 Tramadol HCl (Ultram) 25 mg Q4H PRN GT severe pain 06/27/19 13:18 07/04/19 13:17 Laboratory Tests 06/29/19 09:15: White Blood Count 15.0H, Red Blood Count 2.91L, Hemoglobin 9.6L, Hematocrit 28.2L, Mean Corpuscular Volume 97, Mean Corpuscular Hemoglobin 33.0H, Mean Corpuscular Hemoglobin Concent 34.1, Red Cell Distribution Width 17.7H, Platelet Count 61#L, Mean Platelet Volume 6.8, Neutrophils (%) (Auto) , Lymphocytes (%) (Auto) , Monocytes (%) (Auto) , Eosinophils (%) (Auto) , Basophils (%) (Auto) , Differential Total Cells Counted 100, Neutrophils % ( Manual) 84H, Lymphocytes % (Manual) 5L, Monocytes % (Manual) 10, Eosinophils % ( Manual) 1, Basophils % (Manual) 0, Band Neutrophils 0, Platelet Estimate DecreasedL, Platelet Morphology Normal, Hypochromasia 2+, Anisocytosis 2+, Sodium Level 146H, Potassium Level 4.8, Chloride Level 116H, Carbon Dioxide Level 21, Anion Gap 9, Blood Urea Nitrogen 68H, Creatinine 1.2, Estimat Glomerular Filtration Rate 44.8, Glucose Level 149H, Calcium Level 8.1L Height (Feet): 5 Height (Inches): 3.00 Weight (Pounds): 136 General Appearance: mild distress Cardiovascular: tachycardia Respiratory/Chest: decreased breath sounds Abdomen: distended Alex Aguilar MD Jun 29, 2019 13:34
--- NOTE | 2019-06-29 13:48 | NUR ---
INSURANCE REVIEW FAXED TO [facility]#[phone] FAX#[phone] REVIEWS/CLINICALS
--- NOTE | 2019-06-29 14:39 | Hematology/Onc Progress Note ---
Assessment/Plan Assessment/Plan Assessment and Recs # 7.7 cm left lobe hepatic mass is concerning for hepatocellular carcinoma, particularly given cirrhosis. A large metastasis is also possible. Consider multiphase hepatic protocol MRI. --> also imaging revealed Right renal hypodensities that are too small to characterize. --> seen by gi and surg --> tumor markers show afp 155, cea 26, ca19.9 1660 --> if afp >200, likely hcc, may still need mri --> at this time, given poor prognosis, would recommend no biopsy --> agree with gi is likely cholangio v hcc v pancreatic with mets --> HOSPICE RECOMMENDED # Pancytopenia -- multiple etiologies and in this case is related to cirrhosis --> peripheral smear has been ordered and does not show significant abnormalities --> Medications have been reviewed --> Continue to monitor for improvement, trend cbc --> Hep panel and HIV NEGATIVE --> US abd ordered to r/o cirrhosis and hepatosplenomegaly --> DOES SHOW SPLENOMEGALY AND CIRRHOSIS++ --> reverse isolation if ANC is <2000 --> Give neupogen if ANC <1000 --> Transfuse if hgb <7 --> plt 113-->51-->34k-->61 --> rbc: 2 units 06/26/2019 --> continue on psych meds olanazapine # FTT may need nutrition support --> when off iso may need peg --> abx: ceftriaxone --> alia positive # Coagulopathy - Cirrhosis, ? etiology --> likely will need ffp and vit k if bleeds --> likely to be a chronic issue with cirrhosis # Abd distention, likely ascites --> also r/o COVID-->NEG --> isolation --> s/p para # Dvt ppx scds The timing of this note does not necessarily reflect the time of the patient was seen. Greatly appreciate consultation. Subjective Allergies: Coded Allergies: PENICILLINS (Verified Allergy, Unknown, 06/18/19) Subjective 06/20 no events, no bleeding, tumor markers still pending, imaging noted 06/21 still somewhat confused this am, trying to crawl out of bed, no bleeding or chills 06/22 seen by gi for peg when off iso, no bleeding, plt 118k 06/23 no events, no bleeding, labs noted, cbc reviewed, no night sweats, uncomfortable still 06/24 covid 19 negative, labs reviewed, afebrile, on ceftriaxone 06/26 s/p 2 units rbc, hgb 8.9, stool ob negative, on abx 06/27 plt are low, remains guarded, prognosis is poor, dw gi 06/28 confused, restraints, labs reviewed, nc 2l Objective Objective Current Medications Medications (Trade) Dose Ordered Sig/Idalia Route PRN Reason Start Time Stop Time Status Last Admin Dose Admin Acetaminophen (Tylenol) 500 mg Q6H PRN ORAL Mild Pain/Temp > 100.5 06/25/19 15:15 07/18/19 15:14 Dextrose (Dextrose 50%) 25 ml Q30M PRN IV Hypoglycemia 06/25/19 15:15 09/17/19 09:44 Dextrose (Dextrose 50%) 50 ml Q30M PRN IV Hypoglycemia 06/25/19 15:15 09/17/19 09:44 Guaifenesin/ Codeine Phosphate (Robitussin with codeine) 5 ml Q6H PRN ORAL For Cough 06/25/19 16:00 07/19/19 09:59 Insulin Aspart (NovoLOG) BEFORE MEALS AND HS SUBQ 06/25/19 16:30 09/17/19 11:29 06/28/19 06:22 Lactulose (Cephulac) 20 gm THREE TIMES A DAY ORAL 06/26/19 09:00 07/26/19 08:59 06/29/19 14:10 Lorazepam (Ativan 2mg/ml 1ml) 1 mg Q4HR PRN IM Agitation 06/27/19 23:30 07/04/19 23:29 06/28/19 23:49 Metoclopramide HCl (Reglan) 2.5 mg Q6H PRN IVP Nausea & Vomiting 06/26/19 08:00 07/26/19 07:59 Midodrine (Pro-Amatine) 2.5 mg THREE TIMES A DAY ORAL 06/27/19 13:00 09/25/19 12:59 06/29/19 14:10 Naloxone HCl (Narcan) 0.2 mg Q2M PRN IVP respiratory depression 06/25/19 15:15 09/18/19 11:59 Olanzapine (ZyPREXA) 7.5 mg BID ORAL 06/28/19 09:00 08/12/19 08:59 06/29/19 10:09 Pantoprazole (Protonix) 40 mg DAILY IVP 06/28/19 09:00 07/23/19 08:59 06/29/19 10:09 Propranolol HCl (Inderal) 15 mg Q8HR ORAL 06/25/19 22:00 07/21/19 13:59 06/26/19 21:20 Tramadol HCl (Ultram) 25 mg Q4H PRN GT severe pain 06/27/19 13:18 07/04/19 13:17 Last 24 Hour Vital Signs Date Time Temp Pulse Resp B/P (MAP) Pulse Ox O2 Delivery O2 Flow Rate FiO2 06/29/19 14:00 97 106/56 06/29/19 12:00 97 06/29/19 12:00 96.8 102 19 106/56 (73) 98 06/29/19 09:00 Nasal Cannula 2.0 06/29/19 08:00 99 06/29/19 08:00 97.7 101 18 103/48 (66) 100 06/29/19 06:00 111 123/75 06/29/19 04:00 Nasal Cannula 2.0 06/29/19 04:00 116 06/29/19 04:00 97.9 111 20 123/75 (91) 98 06/29/19 00:00 118 06/29/19 00:00 97.3 117 18 125/69 (87) 95 06/28/19 23:59 Nasal Cannula 2.0 06/28/19 22:00 98 100/47 06/28/19 21:00 Nasal Cannula 2.0 06/28/19 20:00 97.7 98 20 100/ 95 06/28/19 20:00 98 06/28/19 16:00 97.8 96 20 99/50 (66) 100 06/28/19 16:00 95 06/28/19 14:00 80 110/74 06/28/19 12:00 80 06/28/19 12:00 97.8 106 20 110/74 (86) 100 06/28/19 08:59 Nasal Cannula 2.0 06/28/19 08:00 75 06/28/19 08:00 98.3 67 18 96/53 (67) 94 06/28/19 06:00 103 150/66 06/28/19 04:00 98.4 103 17 150/66 (94) 94 06/28/19 03:37 103 06/28/19 00:00 98.9 100 20 113/56 (75) 95 06/27/19 23:30 108 06/27/19 22:00 102 110/71 06/27/19 21:00 Nasal Cannula 2.0 06/27/19 20:00 98.9 103 16 102/58 (73) 95 06/27/19 19:06 102 06/27/19 16:00 102 06/27/19 16:00 98.6 102 13 110/71 (84) 98 Intake and Output 06/28/19 06/29/19 19:00 07:00 Output Total 150 ml 250 ml Balance -150 ml -250 ml Output Urine Total 150 ml 250 ml Labs Test 06/26/19 23:30 06/27/19 07:24 06/28/19 06:45 06/28/19 10:25 Stool Occult Blood Negative (NEGATIVE) White Blood Count 13.7 K/UL (4.8-10.8) 11.6 K/UL (4.8-10.8) Red Blood Count 2.18 M/UL (4.20-5.40) 2.60 M/UL (4.20-5.40) Hemoglobin 8.9 G/DL (12.0-16.0) 8.7 G/DL (12.0-16.0) Hematocrit 20.7 % (37.0-47.0) 25.1 % (37.0-47.0) Mean Corpuscular Volume 95 FL (80-99) 96 FL (80-99) Mean Corpuscular Hemoglobin 41.0 PG (27.0-31.0) 33.5 PG (27.0-31.0) Mean Corpuscular Hemoglobin Concent 43.1 G/DL (32.0-36.0) 34.8 G/DL (32.0-36.0) Red Cell Distribution Width 19.8 % (11.6-14.8) 17.0 % (11.6-14.8) Platelet Count 51 K/UL (150-450) 34 K/UL (150-450) Mean Platelet Volume 5.8 FL (6.5-10.1) 7.6 FL (6.5-10.1) Neutrophils (%) (Auto) % (45.0-75.0) % (45.0-75.0) Lymphocytes (%) (Auto) % (20.0-45.0) % (20.0-45.0) Monocytes (%) (Auto) % (1.0-10.0) % (1.0-10.0) Eosinophils (%) (Auto) % (0.0-3.0) % (0.0-3.0) Basophils (%) (Auto) % (0.0-2.0) % (0.0-2.0) Neutrophils % (Manual) 80 % (45-75) 89 % (45-75) Lymphocytes % (Manual) 10 % (20-45) 1 % (20-45) Monocytes % (Manual) 10 % (1-10) 8 % (1-10) Eosinophils % (Manual) 0 % (0-3) 2 % (0-3) Basophils % (Manual) 0 % (0-2) 0 % (0-2) Band Neutrophils 0 % (0-8) 0 % (0-8) Platelet Estimate Decreased Decreased Platelet Morphology Normal Normal Polychromasia 1+ Hypochromasia 2+ 2+ Anisocytosis 1+ 1+ Sodium Level 146 MMOL/L (136-145) 147 MMOL/L (136-145) Potassium Level 3.9 MMOL/L (3.5-5.1) 4.6 MMOL/L (3.5-5.1) Chloride Level 113 MMOL/L (98-107) 115 MMOL/L (98-107) Carbon Dioxide Level 20 MMOL/L (21-32) 16 MMOL/L (21-32) Anion Gap 13 mmol/L (5-15) 16 mmol/L (5-15) Blood Urea Nitrogen 79 mg/dL (7-18) 62 mg/dL (7-18) Creatinine 1.4 MG/DL (0.55-1.30) 1.2 MG/DL (0.55-1.30) Estimat Glomerular Filtration Rate 37.5 mL/min (>60) 44.8 mL/min (>60) Glucose Level 187 MG/DL (74-106) 181 MG/DL (74-106) Uric Acid 11.9 MG/DL (2.6-7.2) Calcium Level 8.0 MG/DL (8.5-10.1) 7.8 MG/DL (8.5-10.1) Phosphorus Level 2.3 MG/DL (2.5-4.9) 2.7 MG/DL (2.5-4.9) Magnesium Level 3.5 MG/DL (1.8-2.4) Total Bilirubin 4.2 MG/DL (0.2-1.0) 3.5 MG/DL (0.2-1.0) Direct Bilirubin 2.5 MG/DL (0.0-0.3) 0.1 MG/DL (0.0-0.3) Aspartate Amino Transf (AST/SGOT) 56 U/L (15-37) 47 U/L (15-37) Alanine Aminotransferase (ALT/SGPT) 18 U/L (12-78) 27 U/L (12-78) Alkaline Phosphatase 134 U/L (46-116) 123 U/L (46-116) Total Protein 5.9 G/DL (6.4-8.2) 5.4 G/DL (6.4-8.2) Albumin 2.8 G/DL (3.4-5.0) 2.5 G/DL (3.4-5.0) Globulin 3.1 g/dL 2.9 g/dL Albumin/Globulin Ratio 0.9 (1.0-2.7) 0.9 (1.0-2.7) Differential Total Cells Counted 100 Spherocytes 1+ Prothrombin Time 14.5 SEC (9.30-11.50) Prothromb Time International Ratio 1.4 (0.9-1.1) HIV (1&2) Antibody Rapid Negative (NEGATIVE) Test 06/29/19 09:15 White Blood Count 15.0 K/UL (4.8-10.8) Red Blood Count 2.91 M/UL (4.20-5.40) Hemoglobin 9.6 G/DL (12.0-16.0) Hematocrit 28.2 % (37.0-47.0) Mean Corpuscular Volume 97 FL (80-99) Mean Corpuscular Hemoglobin 33.0 PG (27.0-31.0) Mean Corpuscular Hemoglobin Concent 34.1 G/DL (32.0-36.0) Red Cell Distribution Width 17.7 % (11.6-14.8) Platelet Count 61 K/UL (150-450) Mean Platelet Volume 6.8 FL (6.5-10.1) Neutrophils (%) (Auto) % (45.0-75.0) Lymphocytes (%) (Auto) % (20.0-45.0) Monocytes (%) (Auto) % (1.0-10.0) Eosinophils (%) (Auto) % (0.0-3.0) Basophils (%) (Auto) % (0.0-2.0) Differential Total Cells Counted 100 Neutrophils % (Manual) 84 % (45-75) Lymphocytes % (Manual) 5 % (20-45) Monocytes % (Manual) 10 % (1-10) Eosinophils % (Manual) 1 % (0-3) Basophils % (Manual) 0 % (0-2) Band Neutrophils 0 % (0-8) Platelet Estimate Decreased Platelet Morphology Normal Hypochromasia 2+ Anisocytosis 2+ Sodium Level 146 MMOL/L (136-145) Potassium Level 4.8 MMOL/L (3.5-5.1) Chloride Level 116 MMOL/L (98-107) Carbon Dioxide Level 21 MMOL/L (21-32) Anion Gap 9 mmol/L (5-15) Blood Urea Nitrogen 68 mg/dL (7-18) Creatinine 1.2 MG/DL (0.55-1.30) Estimat Glomerular Filtration Rate 44.8 mL/min (>60) Glucose Level 149 MG/DL (74-106) Calcium Level 8.1 MG/DL (8.5-10.1) Height (Feet): 5 Height (Inches): 3.00 Weight (Pounds): 136 Objective Physical Exam: Vitals: reviewed General: NAD HEENT: nc, at, NG+ Neck: supple Chest: clear breath sounds bilaterally, nc+ Cardiovascular: RRR, no s3, s4 Abdomen: soft, nontender, nd Extremities: no cce, normal range of motion Neuro: alert and oriented : alberto+ Cristobal Staples MD Jun 29, 2019 14:39
--- NOTE | 2019-06-29 15:36 | NUR ---
CASE MANAGEMENT:REVIEW 06/29/19 SI: PNA. HYPOXIA. DEHYDRATION HEPATOCELLULAR CARCINOMA 96.8 102 19 106/56 98% ON 2L/NC WBC+15.0 H/H-9.6/28.2 PLT-61 BUN+68 IS: ZYPREXA PO BID IV PROTONIX QD MIDODRINE PO TID LACTULOSE PO TID INDERAL PO Q8HRS SSI SQ AC+HS : TELEMETRY STATUS DCP: FROM [facility] CONV PLAN: REGULAR DIET
[2019-06-29 16:00] VITALS: BP 113/66
--- NOTE | 2019-06-29 16:41 | General Progress Note ---
Assessment/Plan Assessment/Plan: (1) Intractable pain (2) Metastatic disease possible hepatocellular carcinoma Patient will be continued on Tramadol as needed D/w Dr. Cole and he concurred. Subjective Date patient seen: Jun 29, 2019 Time patient seen: 04:40 - pm Allergies: Coded Allergies: PENICILLINS (Verified Allergy, Unknown, 06/18/19) Subjective Constitutional: Reports: weakness Respiratory: Reports: shortness of breath Gastrointestinal/Abdominal: Reports: abdominal pain Neurologic/Psychiatric: Reports: anxiety Subjective Patient is more awake and oriented today. Has been having minimal c/o pain. Has not gotten the Tramadol in the last 24hrs. Objective Last 24 Hour Vital Signs Date Time Temp Pulse Resp B/P (MAP) Pulse Ox O2 Delivery O2 Flow Rate FiO2 06/29/19 16:00 97.2 104 20 113/66 (82) 100 06/29/19 14:00 97 106/56 06/29/19 12:00 97 06/29/19 12:00 96.8 102 19 106/56 (73) 98 06/29/19 09:00 Nasal Cannula 2.0 06/29/19 08:00 99 06/29/19 08:00 97.7 101 18 103/48 (66) 100 06/29/19 06:00 111 123/75 06/29/19 04:00 Nasal Cannula 2.0 06/29/19 04:00 116 06/29/19 04:00 97.9 111 20 123/75 (91) 98 06/29/19 00:00 118 06/29/19 00:00 97.3 117 18 125/69 (87) 95 06/28/19 23:59 Nasal Cannula 2.0 06/28/19 22:00 98 100/47 06/28/19 21:00 Nasal Cannula 2.0 06/28/19 20:00 97.7 98 20 100/ 95 06/28/19 20:00 98 Intake and Output 06/28/19 06/29/19 19:00 07:00 Output Total 150 ml 250 ml Balance -150 ml -250 ml Output Urine Total 150 ml 250 ml Laboratory Tests 06/29/19 09:15: White Blood Count 15.0H, Red Blood Count 2.91L, Hemoglobin 9.6L, Hematocrit 28.2L, Mean Corpuscular Volume 97, Mean Corpuscular Hemoglobin 33.0H, Mean Corpuscular Hemoglobin Concent 34.1, Red Cell Distribution Width 17.7H, Platelet Count 61#L, Mean Platelet Volume 6.8, Neutrophils (%) (Auto) , Lymphocytes (%) (Auto) , Monocytes (%) (Auto) , Eosinophils (%) (Auto) , Basophils (%) (Auto) , Differential Total Cells Counted 100, Neutrophils % ( Manual) 84H, Lymphocytes % (Manual) 5L, Monocytes % (Manual) 10, Eosinophils % ( Manual) 1, Basophils % (Manual) 0, Band Neutrophils 0, Platelet Estimate DecreasedL, Platelet Morphology Normal, Hypochromasia 2+, Anisocytosis 2+, Sodium Level 146H, Potassium Level 4.8, Chloride Level 116H, Carbon Dioxide Level 21, Anion Gap 9, Blood Urea Nitrogen 68H, Creatinine 1.2, Estimat Glomerular Filtration Rate 44.8, Glucose Level 149H, Calcium Level 8.1L Height (Feet): 5 Height (Inches): 3.00 Weight (Pounds): 136 Objective General Appearance: no apparent distress EENT: normal ENT inspection Neck: non-tender, normal alignment Cardiovascular: normal rate, regular rhythm Abdomen: distended Extremities: non-tender Edema: trace edema Neurologic: responsive Joey Gilmore Jun 29, 2019 16:40
--- NOTE | 2019-06-29 19:30 | NUR ---
NURSE NOTES: Received pt and report from AROLDO Merritt. Observed pt resting in bed with both eyes closed; arousable to voice. Pt is A/Ox1. playground monitor is in placed; pt is ST. IV site intact, asymptomatic, and patent. Pt is on bilateral soft wrist restraints; pulses and sensations are present, skin is intact, no swelling noted. Pt has a Neal in place for urinary retention; urine is dark korin in color. Bed is in the lowest position and locked. Call light and bedside table is within reach. No signs/symptoms of acute distress noted at this time. Will continue plan of care.
[2019-06-29 20:00] VITALS: BP 98/58
--- NOTE | 2019-06-29 21:48 | General Progress Note ---
Assessment/Plan Problem List: (1) Dehydration ICD Codes: E86.0 - Dehydration SNOMED: 90491487 (2) Hypoxia ICD Codes: R09.02 - Hypoxemia SNOMED: 349117656 (3) Abdominal pain ICD Codes: R10.9 - Unspecified abdominal pain SNOMED: 92976134 Qualifiers: Qualified Codes: R10.9 - Unspecified abdominal pain (4) Pneumonia ICD Codes: J18.9 - Pneumonia, unspecified organism SNOMED: 964768390 Qualifiers: Qualified Codes: J18.9 - Pneumonia, unspecified organism (5) HCC (hepatocellular carcinoma) ICD Codes: C22.0 - Liver cell carcinoma SNOMED: 037632325 Assessment/Plan: h/h stable ngt is out thrombocytopenia due to cirrhosis moniter for bleeding cirrhosis cri is stable portal htn gastric varices sugar is good mets cancer HCC niddm poor prognosis Arf worsening leukocytosis Subjective ROS Limited/Unobtainable: Yes Allergies: Coded Allergies: PENICILLINS (Verified Allergy, Unknown, 06/18/19) Objective Last 24 Hour Vital Signs Date Time Temp Pulse Resp B/P (MAP) Pulse Ox O2 Delivery O2 Flow Rate FiO2 06/29/19 16:00 123 06/29/19 16:00 97.2 104 20 113/66 (82) 100 06/29/19 14:00 97 106/56 06/29/19 12:00 97 06/29/19 12:00 96.8 102 19 106/56 (73) 98 06/29/19 09:00 Nasal Cannula 2.0 06/29/19 08:00 99 06/29/19 08:00 97.7 101 18 103/48 (66) 100 06/29/19 06:00 111 123/75 06/29/19 04:00 Nasal Cannula 2.0 06/29/19 04:00 116 06/29/19 04:00 97.9 111 20 123/75 (91) 98 06/29/19 00:00 118 06/29/19 00:00 97.3 117 18 125/69 (87) 95 06/28/19 23:59 Nasal Cannula 2.0 06/28/19 22:00 98 100/47 Intake and Output 06/28/19 06/29/19 19:00 07:00 Output Total 150 ml 250 ml Balance -150 ml -250 ml Output Urine Total 150 ml 250 ml Laboratory Tests 06/29/19 09:15: White Blood Count 15.0H, Red Blood Count 2.91L, Hemoglobin 9.6L, Hematocrit 28.2L, Mean Corpuscular Volume 97, Mean Corpuscular Hemoglobin 33.0H, Mean Corpuscular Hemoglobin Concent 34.1, Red Cell Distribution Width 17.7H, Platelet Count 61#L, Mean Platelet Volume 6.8, Neutrophils (%) (Auto) , Lymphocytes (%) (Auto) , Monocytes (%) (Auto) , Eosinophils (%) (Auto) , Basophils (%) (Auto) , Differential Total Cells Counted 100, Neutrophils % ( Manual) 84H, Lymphocytes % (Manual) 5L, Monocytes % (Manual) 10, Eosinophils % ( Manual) 1, Basophils % (Manual) 0, Band Neutrophils 0, Platelet Estimate DecreasedL, Platelet Morphology Normal, Hypochromasia 2+, Anisocytosis 2+, Sodium Level 146H, Potassium Level 4.8, Chloride Level 116H, Carbon Dioxide Level 21, Anion Gap 9, Blood Urea Nitrogen 68H, Creatinine 1.2, Estimat Glomerular Filtration Rate 44.8, Glucose Level 149H, Calcium Level 8.1L Height (Feet): 5 Height (Inches): 3.00 Weight (Pounds): 136 Era Acuña MD Jun 29, 2019 21:48
[2019-06-30] VITALS (17 sets, daily range): BP systolic 80–112; BP diastolic 37–84
--- NOTE | 2019-06-30 | Progress Note ---
DATE: 06/29/2019 SUBJECTIVE: The patient is out of the isolation. The patient still has episodes of agitation. Much improved and more manageable on psychotropic medications. The patient continues to be pulling out the NG. MENTAL STATUS EXAMINATION: The patient is awake, confused, disoriented. Mood is still agitated. Affect is flat. Thought process is concrete. Thought content, no suicidal or homicidal ideation. Cognition is impaired. Insight and judgment impaired. ASSESSMENT: Schizophrenia. PLAN: 1. Zyprexa 7.5 b.i.d. 2. Lorazepam p.r.n. 3. Continue the bilateral soft restraints. Per Holden M.D. DR: IVET JOB#: [id number] CC:
[2019-06-30] MEDS: traMADol 50mg tab GT PRN ×2 (02:36→12:19)
[2019-06-30] MEDS: NovoLOG Insulin Flexpen SUBQ SCH ×4 (06:12→20:44)
[2019-06-30] MEDS: Propranolol 10mg tab ORAL SCH ×2 (06:13→14:00)
--- NOTE | 2019-06-30 07:35 | NUR ---
NURSE NOTES: pt in bed AOx1. Pt is 1:1 feeded pt resting at this moment. continue android framework developer, no signs of cardiac or respiratory distress. call light within reach, bed locked and in lowest position, side rails up x2, bed alarm on . pt is on restraints and has dominguez. Will continue to monitor pt.
--- NOTE | 2019-06-30 08:08 | NUR ---
HAND-OFF: Report given to AROLDO Wadsworth. Plan of care endorsed.
[2019-06-30 08:15] LABS: HEMATOCRIT 22.4 % (37.0-47.0); HEMOGLOBIN 9.9 G/DL (12.0-16.0); MEAN CORPUSCULAR VOLUME 101 FL (80-99); PLATELET COUNT 66 K/UL (150-450); RED BLOOD COUNT 2.21 M/UL (4.20-5.40); RED CELL DISTRIBUTION WIDTH 22.2 % (11.6-14.8)
--- NOTE | 2019-06-30 08:19 | NUR ---
CASE MANAGEMENT:REVIEW 06/30/19 SI: PNA. HYPOXIA. DEHYDRATION HEPATOCELLULAR CARCINOMA. COVID 19 NOT DETECTED 96.8 125 19 112/59 97% ON 2L/NC WBC+15 PLT-66 IS: ZYPREXA PO BID IV PROTONIX QD MIDODRINE PO TID LACTULOSE PO TID INDERAL PO Q8HRS SSI SQ AC+HS : TELEMETRY STATUS DCP: FROM [facility] CONV PLAN: REGULAR DIET OBSERVE OFF ANTIBIOTICS TREND WBC'S
[2019-06-30 08:21] LABS: ALANINE AMINOTRANSFERASE 15 U/L (12-78); ALBUMIN 2.5 G/DL (3.4-5.0); ALBUMIN/GLOBULIN RATIO 0.7 (1.0-2.7); ALKALINE PHOSPHATASE 159 U/L (46-116); ANION GAP 13 mmol/L (5-15); ASPARTATE AMINO TRANSFERASE 38 U/L (15-37); BILIRUBIN,TOTAL 2.7 MG/DL (0.2-1.0); BLOOD UREA NITROGEN 82 mg/dL (7-18); CALCIUM 8.3 MG/DL (8.5-10.1); CARBON DIOXIDE 19 MMOL/L (21-32); CHLORIDE 116 MMOL/L (98-107); CREATININE 1.4 MG/DL (0.55-1.30); SODIUM 148 MMOL/L (136-145)
[2019-06-30 08:25] LABS: BILIRUBIN,DIRECT 1.6 MG/DL (0.0-0.3)
--- NOTE | 2019-06-30 09:14 | Hematology/Onc Progress Note ---
Assessment/Plan Assessment/Plan Assessment and Recs # 7.7 cm left lobe hepatic mass is concerning for hepatocellular carcinoma, particularly given cirrhosis. A large metastasis is also possible. Consider multiphase hepatic protocol MRI. --> also imaging revealed Right renal hypodensities that are too small to characterize. --> seen by gi and surg --> tumor markers show afp 155, cea 26, ca19.9 1660 --> if afp >200, likely hcc, may still need mri --> at this time, given poor prognosis, would recommend no biopsy --> agree with gi is likely cholangio v hcc v pancreatic with mets --> HOSPICE RECOMMENDED AND [facility] # Pancytopenia -- multiple etiologies and in this case is related to cirrhosis --> peripheral smear has been ordered and does not show significant abnormalities --> Medications have been reviewed --> Continue to monitor for improvement, trend cbc --> Hep panel and HIV NEGATIVE --> US abd ordered to r/o cirrhosis and hepatosplenomegaly --> DOES SHOW SPLENOMEGALY AND CIRRHOSIS++ --> reverse isolation if ANC is <2000 --> Give neupogen if ANC <1000 --> Transfuse if hgb <7 --> plt 113-->51-->34k-->61-->66 --> rbc: 2 units 06/26/2019 --> continue on psych meds olanazapine # FTT may need nutrition support --> when off iso may need peg --> abx: ceftriaxone --> alia positive # Coagulopathy - Cirrhosis, ? etiology --> likely will need ffp and vit k if bleeds --> likely to be a chronic issue with cirrhosis # Abd distention, likely ascites --> also r/o COVID-->NEG --> isolation --> s/p para # Dvt ppx scds The timing of this note does not necessarily reflect the time of the patient was seen. Greatly appreciate consultation. Subjective Constitutional: Denies: no symptoms, chills, fever, malaise, weakness, other HEENT: Denies: no symptoms, eye pain, blurred vision, tearing, double vision, ear pain, ear discharge, nose pain, nose congestion, throat pain, throat swelling, mouth pain, mouth swelling, other Cardiovascular: Denies: no symptoms, chest pain, edema, irregular heart rate, lightheadedness, palpitations, syncope, other Respiratory: Denies: no symptoms, cough, shortness of breath, SOB with excertion, SOB at rest, sputum, wheezing, other Gastrointestinal/Abdominal: Denies: no symptoms, abdomen distended, abdominal pain, black stools, tarry stools, blood in stool, constipated, diarrhea, difficulty swallowing, nausea, poor appetite, poor fluid intake, rectal bleeding , vomiting, other Neurologic/Psychiatric: Denies: no symptoms, anxiety, depressed, emotional problems, headache, numbness, paresthesia, pre-existing deficit, seizure, tingling, tremors, weakness, other Endocrine: Denies: no symptoms, excessive sweating, flushing, intolerance to cold, intolerance to heat, increased hunger, increased thirst, increased urine, unexplained weight gain, unexplained weight loss, other Hematologic/Lymphatic: Denies: no symptoms, anemia, easy bleeding, easy bruising, adenopathy, other Allergies: Coded Allergies: PENICILLINS (Verified Allergy, Unknown, 06/18/19) Subjective 06/20 no events, no bleeding, tumor markers still pending, imaging noted 06/21 still somewhat confused this am, trying to crawl out of bed, no bleeding or chills 06/22 seen by gi for peg when off iso, no bleeding, plt 118k 06/23 no events, no bleeding, labs noted, cbc reviewed, no night sweats, uncomfortable still 06/24 covid 19 negative, labs reviewed, afebrile, on ceftriaxone 06/26 s/p 2 units rbc, hgb 8.9, stool ob negative, on abx 06/27 plt are low, remains guarded, prognosis is poor, dw gi 06/28 confused, restraints, labs reviewed, nc 2l 06/29 no major changes, remains confused, with restraitns, labs noted Objective Objective Current Medications Medications (Trade) Dose Ordered Sig/Idalia Route PRN Reason Start Time Stop Time Status Last Admin Dose Admin Acetaminophen (Tylenol) 500 mg Q6H PRN ORAL Mild Pain/Temp > 100.5 06/25/19 15:15 07/18/19 15:14 Dextrose (Dextrose 50%) 25 ml Q30M PRN IV Hypoglycemia 06/25/19 15:15 09/17/19 09:44 Dextrose (Dextrose 50%) 50 ml Q30M PRN IV Hypoglycemia 06/25/19 15:15 09/17/19 09:44 Guaifenesin/ Codeine Phosphate (Robitussin with codeine) 5 ml Q6H PRN ORAL For Cough 06/25/19 16:00 07/19/19 09:59 Insulin Aspart (NovoLOG) BEFORE MEALS AND HS SUBQ 06/25/19 16:30 09/17/19 11:29 06/30/19 06:12 Lactulose (Cephulac) 20 gm THREE TIMES A DAY ORAL 06/26/19 09:00 07/26/19 08:59 06/29/19 17:39 Lorazepam (Ativan 2mg/ml 1ml) 1 mg Q4HR PRN IM Agitation 06/27/19 23:30 07/04/19 23:29 06/28/19 23:49 Metoclopramide HCl (Reglan) 2.5 mg Q6H PRN IVP Nausea & Vomiting 06/26/19 08:00 07/26/19 07:59 Midodrine (Pro-Amatine) 2.5 mg THREE TIMES A DAY ORAL 06/27/19 13:00 09/25/19 12:59 06/29/19 17:39 Naloxone HCl (Narcan) 0.2 mg Q2M PRN IVP respiratory depression 06/25/19 15:15 09/18/19 11:59 Olanzapine (ZyPREXA) 7.5 mg BID ORAL 06/28/19 09:00 08/12/19 08:59 06/29/19 17:39 Pantoprazole (Protonix) 40 mg DAILY IVP 06/28/19 09:00 07/23/19 08:59 06/29/19 10:09 Propranolol HCl (Inderal) 15 mg Q8HR ORAL 06/25/19 22:00 07/21/19 13:59 06/30/19 06:13 Tramadol HCl (Ultram) 25 mg Q4H PRN GT severe pain 06/27/19 13:18 07/04/19 13:17 06/30/19 02:36 Last 24 Hour Vital Signs Date Time Temp Pulse Resp B/P (MAP) Pulse Ox O2 Delivery O2 Flow Rate FiO2 06/30/19 06:13 114 124/56 06/30/19 04:00 125 06/30/19 04:00 96.8 109 19 112/59 (76) 97 06/30/19 00:00 116 06/30/19 00:00 97.2 115 19 110/63 (79) 98 06/29/19 22:00 112 98/58 06/29/19 21:00 Nasal Cannula 2.0 06/29/19 20:00 96.9 112 20 98/58 (71) 99 06/29/19 20:00 117 06/29/19 16:00 123 06/29/19 16:00 97.2 104 20 113/66 (82) 100 06/29/19 14:00 97 106/56 06/29/19 12:00 97 06/29/19 12:00 96.8 102 19 106/56 (73) 98 06/29/19 09:00 Nasal Cannula 2.0 06/29/19 08:00 99 06/29/19 08:00 97.7 101 18 103/48 (66) 100 06/29/19 06:00 111 123/75 06/29/19 04:00 Nasal Cannula 2.0 06/29/19 04:00 116 06/29/19 04:00 97.9 111 20 123/75 (91) 98 06/29/19 00:00 118 06/29/19 00:00 97.3 117 18 125/69 (87) 95 06/28/19 23:59 Nasal Cannula 2.0 06/28/19 22:00 98 100/47 06/28/19 21:00 Nasal Cannula 2.0 06/28/19 20:00 97.7 98 20 100/ 95 06/28/19 20:00 98 06/28/19 16:00 97.8 96 20 99/50 (66) 100 06/28/19 16:00 95 06/28/19 14:00 80 110/74 06/28/19 12:00 80 06/28/19 12:00 97.8 106 20 110/74 (86) 100 Intake and Output 06/29/19 06/30/19 19:00 07:00 Intake Total 130 ml Output Total 400 ml Balance -270 ml Intake Oral 130 ml Output Urine Total 400 ml Labs Test 06/28/19 06:45 06/28/19 10:25 06/29/19 09:15 4/8/20 05:39 White Blood Count 11.6 K/UL (4.8-10.8) 15.0 K/UL (4.8-10.8) 15.0 K/UL (4.8-10.8) Red Blood Count 2.60 M/UL (4.20-5.40) 2.91 M/UL (4.20-5.40) 2.21 M/UL (4.20-5.40) Hemoglobin 8.7 G/DL (12.0-16.0) 9.6 G/DL (12.0-16.0) 9.9 G/DL (12.0-16.0) Hematocrit 25.1 % (37.0-47.0) 28.2 % (37.0-47.0) 22.4 % (37.0-47.0) Mean Corpuscular Volume 96 FL (80-99) 97 FL (80-99) 101 FL (80-99) Mean Corpuscular Hemoglobin 33.5 PG (27.0-31.0) 33.0 PG (27.0-31.0) 44.7 PG (27.0-31.0) Mean Corpuscular Hemoglobin Concent 34.8 G/DL (32.0-36.0) 34.1 G/DL (32.0-36.0) 44.3 G/DL (32.0-36.0) Red Cell Distribution Width 17.0 % (11.6-14.8) 17.7 % (11.6-14.8) 22.2 % (11.6-14.8) Platelet Count 34 K/UL (150-450) 61 K/UL (150-450) 66 K/UL (150-450) Mean Platelet Volume 7.6 FL (6.5-10.1) 6.8 FL (6.5-10.1) 6.2 FL (6.5-10.1) Neutrophils (%) (Auto) % (45.0-75.0) % (45.0-75.0) % (45.0-75.0) Lymphocytes (%) (Auto) % (20.0-45.0) % (20.0-45.0) % (20.0-45.0) Monocytes (%) (Auto) % (1.0-10.0) % (1.0-10.0) % (1.0-10.0) Eosinophils (%) (Auto) % (0.0-3.0) % (0.0-3.0) % (0.0-3.0) Basophils (%) (Auto) % (0.0-2.0) % (0.0-2.0) % (0.0-2.0) Differential Total Cells Counted 100 100 Neutrophils % (Manual) 89 % (45-75) 84 % (45-75) Lymphocytes % (Manual) 1 % (20-45) 5 % (20-45) Monocytes % (Manual) 8 % (1-10) 10 % (1-10) Eosinophils % (Manual) 2 % (0-3) 1 % (0-3) Basophils % (Manual) 0 % (0-2) 0 % (0-2) Band Neutrophils 0 % (0-8) 0 % (0-8) Platelet Estimate Decreased Decreased Platelet Morphology Normal Normal Hypochromasia 2+ 2+ Anisocytosis 1+ 2+ Spherocytes 1+ Prothrombin Time 14.5 SEC (9.30-11.50) Prothromb Time International Ratio 1.4 (0.9-1.1) Sodium Level 147 MMOL/L (136-145) 146 MMOL/L (136-145) 148 MMOL/L (136-145) Potassium Level 4.6 MMOL/L (3.5-5.1) 4.8 MMOL/L (3.5-5.1) 5.0 MMOL/L (3.5-5.1) Chloride Level 115 MMOL/L (98-107) 116 MMOL/L (98-107) 116 MMOL/L (98-107) Carbon Dioxide Level 16 MMOL/L (21-32) 21 MMOL/L (21-32) 19 MMOL/L (21-32) Anion Gap 16 mmol/L (5-15) 9 mmol/L (5-15) 13 mmol/L (5-15) Blood Urea Nitrogen 62 mg/dL (7-18) 68 mg/dL (7-18) 82 mg/dL (7-18) Creatinine 1.2 MG/DL (0.55-1.30) 1.2 MG/DL (0.55-1.30) 1.4 MG/DL (0.55-1.30) Estimat Glomerular Filtration Rate 44.8 mL/min (>60) 44.8 mL/min (>60) 37.5 mL/min (>60) Glucose Level 181 MG/DL (74-106) 149 MG/DL (74-106) 167 MG/DL (74-106) Calcium Level 7.8 MG/DL (8.5-10.1) 8.1 MG/DL (8.5-10.1) 8.3 MG/DL (8.5-10.1) Total Bilirubin 3.5 MG/DL (0.2-1.0) 2.7 MG/DL (0.2-1.0) Direct Bilirubin 0.1 MG/DL (0.0-0.3) 1.6 MG/DL (0.0-0.3) Aspartate Amino Transf (AST/SGOT) 47 U/L (15-37) 38 U/L (15-37) Alanine Aminotransferase (ALT/SGPT) 27 U/L (12-78) 15 U/L (12-78) Alkaline Phosphatase 123 U/L (46-116) 159 U/L (46-116) Total Protein 5.4 G/DL (6.4-8.2) 6.3 G/DL (6.4-8.2) Albumin 2.5 G/DL (3.4-5.0) 2.5 G/DL (3.4-5.0) Globulin 2.9 g/dL 3.8 g/dL Albumin/Globulin Ratio 0.9 (1.0-2.7) 0.7 (1.0-2.7) Phosphorus Level 2.7 MG/DL (2.5-4.9) HIV (1&2) Antibody Rapid Negative (NEGATIVE) Height (Feet): 5 Height (Inches): 3.00 Weight (Pounds): 134 Objective Physical Exam: Vitals: reviewed General: NAD HEENT: nc, at, NG+ Neck: supple Chest: clear breath sounds bilaterally, nc+ Cardiovascular: RRR, no s3, s4 Abdomen: soft, nontender, nd Extremities: no cce, normal range of motion Neuro: alert and oriented : alberto+ Cristobal Staples MD Jun 30, 2019 09:14
--- NOTE | 2019-06-30 09:28 | General Progress Note ---
Assessment/Plan Assessment/Plan: Assessment/Plan Assessment/Plan: Assessment - Cirrhosis, ? etiology - Large liver mass, suspect CA - poor Px - lung nodules - abd distention, ascites -FTT -Anemia -UTI -DM -gallstones -GV Recommendations - Cirrhsis w/u (HBV, [facility], [facility], HHC) -low dose Propranolol -Repeat labs -tumor markers reviewed>>>? cholangio CA with liver mets -pending MRI or liver biopsy _ s/p EGD>>> gastric varices -s/p paracentesis 7 lit albumin lactulose NGTF low dose reglan s/p 2 units PRBC without overt GIB poor prognosis patient is keep pulling her NGT passed swallow eval for puree diet had a long D/W her son and oncology , patient might benefit from Hospice eval Subjective ROS Limited/Unobtainable: No Allergies: Coded Allergies: PENICILLINS (Verified Allergy, Unknown, 06/18/19) Objective Last 24 Hour Vital Signs Date Time Temp Pulse Resp B/P (MAP) Pulse Ox O2 Delivery O2 Flow Rate FiO2 06/30/19 06:13 114 124/56 06/30/19 04:00 125 06/30/19 04:00 96.8 109 19 112/59 (76) 97 06/30/19 00:00 116 06/30/19 00:00 97.2 115 19 110/63 (79) 98 06/29/19 22:00 112 98/58 06/29/19 21:00 Nasal Cannula 2.0 06/29/19 20:00 96.9 112 20 98/58 (71) 99 06/29/19 20:00 117 06/29/19 16:00 123 06/29/19 16:00 97.2 104 20 113/66 (82) 100 06/29/19 14:00 97 106/56 06/29/19 12:00 97 06/29/19 12:00 96.8 102 19 106/56 (73) 98 Intake and Output 06/29/19 06/30/19 19:00 07:00 Intake Total 130 ml Output Total 400 ml Balance -270 ml Intake Oral 130 ml Output Urine Total 400 ml Laboratory Tests 06/30/19 05:39: White Blood Count 15.0H, Red Blood Count 2.21L, Hemoglobin 9.9L, Hematocrit 22.4L, Mean Corpuscular Volume 101H, Mean Corpuscular Hemoglobin 44.7H, Mean Corpuscular Hemoglobin Concent 44.3H, Red Cell Distribution Width 22.2H, Platelet Count 66L, Mean Platelet Volume 6.2L, Neutrophils (%) (Auto) , Lymphocytes (%) (Auto) , Monocytes (%) (Auto) , Eosinophils (%) (Auto) , Basophils (%) (Auto) , Neutrophils % (Manual) [Pending], Lymphocytes % (Manual) [Pending], Platelet Estimate [Pending], Platelet Morphology [Pending], Sodium Level 148H, Potassium Level 5.0, Chloride Level 116H, Carbon Dioxide Level 19L, Anion Gap 13, Blood Urea Nitrogen 82H, Creatinine 1.4H, Estimat Glomerular Filtration Rate 37.5, Glucose Level 167H, Calcium Level 8.3L, Total Bilirubin 2.7H, Direct Bilirubin 1.6H, Aspartate Amino Transf (AST/SGOT) 38H, Alanine Aminotransferase (ALT/SGPT) 15, Alkaline Phosphatase 159H, Total Protein 6.3L, Albumin 2.5L, Globulin 3.8, Albumin/Globulin Ratio 0.7L Height (Feet): 5 Height (Inches): 3.00 Weight (Pounds): 134 General Appearance: lethargic EENT: normal ENT inspection Neck: supple Cardiovascular: normal rate Respiratory/Chest: decreased breath sounds Abdomen: normal bowel sounds, non tender, soft Extremities: non-tender Howard Childers MD Jun 30, 2019 09:28
--- NOTE | 2019-06-30 10:11 | NUR ---
ST NOTES: SWALLOW STATUS: PATIENT IS NOT ALERT FOR MODIFIED BARIUM SWALLOW STUDY TODAY. GOALS FOR INTAKE NOT MET THIS MORNING (BREAKFAST NOT EATEN) AND QUESTIONABLE DUE TO MEDS TO CALM HER DOWN VERSUS LACK OF SLEEP. TRIED TO SPEAK WITH RN, JEAN, ABOUT MEDS BUT NOT AVAILABLE. PER CHART, PATIENT HAD TRAMADOL AT 2:36 ? SEDATING MEDS. PER GI, DR ELLIOTT, PATIENT MAY BENEFIT FROM HOSPICE EVAL. PER GI, PATIENT NOT CANDIDATE FOR BIOPSY AND HE WANTS ONCOLOGIST, DR VÁZQUEZ TO TALK TO FAMILY ABOUT PX AND POSSIBLE NEED FOR HOSPICE. LEFT MESSAGE FOR DR VÁZQUEZ LETTING HIM KNOW THAT FAMILY WANTING TO KNOW HOW THEIR FAMILY IS DOING. HE WILL CALL PATIENT'S FAMILY TODAY. EDUCATED/TRAINED NEW STAFF IN POSTED ASPIRATION PRECAUTIONS. PLAN: F/UP WITH PLAN OF CARE IN SWALLOW EVAL REPORT. MBSS (VIDEO) IP OR OP IF D/C SINCE PATIENT WILL BE ON COMFORT FEEDING. Addendum: 06/30/19 at 1322 by ANKITA WHITE MANAGER CLEANING LEFT MESSAGE WITH CARY TIMBER SELECTOR, LETTING HER KNOW THAT DR VÁZQUEZ WAS GOING TO SPEAK WITH THE PATIENT'S FAMILY ABOUT HOSPICE. DISCUSSED INFORMATION ABOVE WITH RN, MANUEL, WHO SAID THAT THE PATIENT IS STILL NOT ALERT ENOUGH TO EAT/DRINK BY MOUTH.
--- NOTE | 2019-06-30 10:45 | Pulmonology Progress Note ---
Assessment/Plan Assessment/Plan IMPRESSION: 1. Probable metastatic pulmonary disease. 2. Negative COVID-19. 3. Hepatocellular mass. Likely carcinoma 4. Schizophrenia. 5. Diabetes mellitus. 6. Anemia; now corrected DISCUSSION: Continue low flow O2 prn CXR no change; looks clear Discussed with Gastroenterology. Repeat COVID 19 negative Agree with hospice Trip Martines M.D. Subjective Interval Events: None new Constitutional: Reports: no symptoms HEENT: Repors: no symptoms Respiratory: Reports: no symptoms Cardiovascular: Reports: no symptoms Gastrointestinal/Abdominal: Reports: no symptoms Allergies: Coded Allergies: PENICILLINS (Verified Allergy, Unknown, 06/18/19) Objective Last 24 Hour Vital Signs Date Time Temp Pulse Resp B/P (MAP) Pulse Ox O2 Delivery O2 Flow Rate FiO2 06/30/19 06:13 114 124/56 06/30/19 04:00 125 06/30/19 04:00 96.8 109 19 112/59 (76) 97 06/30/19 00:00 116 06/30/19 00:00 97.2 115 19 110/63 (79) 98 06/29/19 22:00 112 98/58 06/29/19 21:00 Nasal Cannula 2.0 06/29/19 20:00 96.9 112 20 98/58 (71) 99 06/29/19 20:00 117 06/29/19 16:00 123 06/29/19 16:00 97.2 104 20 113/66 (82) 100 06/29/19 14:00 97 106/56 06/29/19 12:00 97 06/29/19 12:00 96.8 102 19 106/56 (73) 98 Intake and Output 06/29/19 06/30/19 19:00 07:00 Intake Total 130 ml Output Total 400 ml Balance -270 ml Intake Oral 130 ml Output Urine Total 400 ml General Appearance: no acute distress HEENT: normocephalic Respiratory/Chest: chest wall non-tender Cardiovascular: normal peripheral pulses Abdomen: normal bowel sounds Laboratory Tests 06/30/19 05:39: White Blood Count 15.0H, Red Blood Count 2.21L, Hemoglobin 9.9L, Hematocrit 22.4L, Mean Corpuscular Volume 101H, Mean Corpuscular Hemoglobin 44.7H, Mean Corpuscular Hemoglobin Concent 44.3H, Red Cell Distribution Width 22.2H, Platelet Count 66L, Mean Platelet Volume 6.2L, Neutrophils (%) (Auto) , Lymphocytes (%) (Auto) , Monocytes (%) (Auto) , Eosinophils (%) (Auto) , Basophils (%) (Auto) , Neutrophils % (Manual) [Pending], Lymphocytes % (Manual) [Pending], Platelet Estimate [Pending], Platelet Morphology [Pending], Sodium Level 148H, Potassium Level 5.0, Chloride Level 116H, Carbon Dioxide Level 19L, Anion Gap 13, Blood Urea Nitrogen 82H, Creatinine 1.4H, Estimat Glomerular Filtration Rate 37.5, Glucose Level 167H, Calcium Level 8.3L, Total Bilirubin 2.7H, Direct Bilirubin 1.6H, Aspartate Amino Transf (AST/SGOT) 38H, Alanine Aminotransferase (ALT/SGPT) 15, Alkaline Phosphatase 159H, Total Protein 6.3L, Albumin 2.5L, Globulin 3.8, Albumin/Globulin Ratio 0.7L Current Medications Medications (Trade) Dose Ordered Sig/Idalia Route PRN Reason Start Time Stop Time Status Last Admin Dose Admin Acetaminophen (Tylenol) 500 mg Q6H PRN ORAL Mild Pain/Temp > 100.5 06/25/19 15:15 07/18/19 15:14 Dextrose (Dextrose 50%) 25 ml Q30M PRN IV Hypoglycemia 06/25/19 15:15 09/17/19 09:44 Dextrose (Dextrose 50%) 50 ml Q30M PRN IV Hypoglycemia 06/25/19 15:15 09/17/19 09:44 Guaifenesin/ Codeine Phosphate (Robitussin with codeine) 5 ml Q6H PRN ORAL For Cough 06/25/19 16:00 07/19/19 09:59 Insulin Aspart (NovoLOG) BEFORE MEALS AND HS SUBQ 06/25/19 16:30 09/17/19 11:29 06/30/19 06:12 Lactulose (Cephulac) 20 gm THREE TIMES A DAY ORAL 06/26/19 09:00 07/26/19 08:59 06/29/19 17:39 Lorazepam (Ativan 2mg/ml 1ml) 1 mg Q4HR PRN IM Agitation 06/27/19 23:30 07/04/19 23:29 06/28/19 23:49 Metoclopramide HCl (Reglan) 2.5 mg Q6H PRN IVP Nausea & Vomiting 06/26/19 08:00 07/26/19 07:59 Midodrine (Pro-Amatine) 2.5 mg THREE TIMES A DAY ORAL 06/27/19 13:00 09/25/19 12:59 06/29/19 17:39 Naloxone HCl (Narcan) 0.2 mg Q2M PRN IVP respiratory depression 06/25/19 15:15 09/18/19 11:59 Olanzapine (ZyPREXA) 7.5 mg BID ORAL 06/28/19 09:00 08/12/19 08:59 06/29/19 17:39 Pantoprazole (Protonix) 40 mg DAILY IVP 06/28/19 09:00 07/23/19 08:59 06/29/19 10:09 Propranolol HCl (Inderal) 15 mg Q8HR ORAL 06/25/19 22:00 07/21/19 13:59 06/30/19 06:13 Tramadol HCl (Ultram) 25 mg Q4H PRN GT severe pain 06/27/19 13:18 07/04/19 13:17 06/30/19 02:36 Trip Martines MD Jun 30, 2019 10:45
[2019-06-30] MEDS: Pantoprazole Inj IVP SCH (11:12)
[2019-06-30] MEDS: Lactulose 20gm/30ml UDC ORAL SCH ×2 (11:12→13:00)
--- NOTE | 2019-06-30 11:30 | NUR ---
NURSE NOTES: pt does not want to eat very difficult to give meds. Will not give insulin because she is not eating enough.
--- NOTE | 2019-06-30 11:59 | Nephrology Progress Note ---
Assessment/Plan Problem List: (1) LEANDRO (acute kidney injury) Assessment: Serum creatinine was up to 1.9 now back to 1.2 (2) Hyperkalemia (3) Liver cirrhosis (4) Liver mass (5) Anemia Assessment - LEANDRO , serum creatinine [place] to 1.6, likely multifactorial, due to underlying liver disease, antibiotics, low blood pressure. - Hyperkalemia - Hypoalbuminemia - Cirrhosis, ? etiology - Large liver mass, suspect CA - poor Px - lung nodules - abd distention, likely ascites - r/o COVID -FTT -Anemia -UTI -DM -gallstones Plan Renal parameters improving patient transfused June 25 Start low-dose midodrine for low blood pressure Start allopurinol p.o. Hyperkalemia resolved. Serum creatinine is lowering Continue slow hydration Neal catheter Avoid nephrotoxics Follow-up with renal parameters Urine studies Per orders Poor prognosis Subjective ROS Limited/Unobtainable: No Constitutional: Reports: malaise, weakness Objective Objective Last 24 Hour Vital Signs Date Time Temp Pulse Resp B/P (MAP) Pulse Ox O2 Delivery O2 Flow Rate FiO2 06/30/19 06:13 114 124/56 06/30/19 04:00 125 06/30/19 04:00 96.8 109 19 112/59 (76) 97 06/30/19 00:00 116 06/30/19 00:00 97.2 115 19 110/63 (79) 98 06/29/19 22:00 112 98/58 06/29/19 21:00 Nasal Cannula 2.0 06/29/19 20:00 96.9 112 20 98/58 (71) 99 06/29/19 20:00 117 06/29/19 16:00 123 06/29/19 16:00 97.2 104 20 113/66 (82) 100 06/29/19 14:00 97 106/56 06/29/19 12:00 97 06/29/19 12:00 96.8 102 19 106/56 (73) 98 Intake and Output 06/29/19 06/30/19 19:00 07:00 Intake Total 130 ml Output Total 400 ml Balance -270 ml Intake Oral 130 ml Output Urine Total 400 ml Laboratory Tests 06/30/19 05:39: White Blood Count 15.0H, Red Blood Count 2.21L, Hemoglobin 9.9L, Hematocrit 22.4L, Mean Corpuscular Volume 101H, Mean Corpuscular Hemoglobin 44.7H, Mean Corpuscular Hemoglobin Concent 44.3H, Red Cell Distribution Width 22.2H, Platelet Count 66L, Mean Platelet Volume 6.2L, Neutrophils (%) (Auto) , Lymphocytes (%) (Auto) , Monocytes (%) (Auto) , Eosinophils (%) (Auto) , Basophils (%) (Auto) , Neutrophils % (Manual) [Pending], Lymphocytes % (Manual) [Pending], Platelet Estimate [Pending], Platelet Morphology [Pending], Sodium Level 148H, Potassium Level 5.0, Chloride Level 116H, Carbon Dioxide Level 19L, Anion Gap 13, Blood Urea Nitrogen 82H, Creatinine 1.4H, Estimat Glomerular Filtration Rate 37.5, Glucose Level 167H, Calcium Level 8.3L, Total Bilirubin 2.7H, Direct Bilirubin 1.6H, Aspartate Amino Transf (AST/SGOT) 38H, Alanine Aminotransferase (ALT/SGPT) 15, Alkaline Phosphatase 159H, Total Protein 6.3L, Albumin 2.5L, Globulin 3.8, Albumin/Globulin Ratio 0.7L Height (Feet): 5 Height (Inches): 3.00 Weight (Pounds): 134 General Appearance: no apparent distress, lethargic Cardiovascular: tachycardia Respiratory/Chest: decreased breath sounds Abdomen: distended Alex Aguilar MD Jun 30, 2019 11:59
--- NOTE | 2019-06-30 12:05 | NUR ---
NURSE NOTES: pt transferred to [facility] in stable condition. Report given to Saira. belongings were brought up with pt. alarm security or surveillance monitor taken off from pt before leaving the unit. Endorsed to receiving RN pt is not eating much last B/S 158, insulin was not given. Pt is very lethargic and is hard to give PO meds to. contacted Dr. Cabello to see if restraints should continue. waiting for doctor's response.
--- NOTE | 2019-06-30 12:10 | NUR ---
NURSE NOTES: spoke to pt family and they want to speak to doctor's for update. Referred pt to doctor Missy Bennett, and Irineo, so they can answer family questions.
--- NOTE | 2019-06-30 12:10 | Infectious Diseases Prog Note ---
Assessment/Plan Assessment/Plan IMPRESSION: Hypoxemia and abnormal CT scan of the chest, more likely metastatic disease. Cirrhosis of liver Portal hypertension, Diabetes mellitus, Hypertension, Cholelithiasis, Anemia, suspected liver neoplasm. Gastric varices RECOMMENDATION: Observe off antibiotic 06/17, 06/22 COVID-19 test. Prognosis is poor Consider Hospice Case was D/W Dr Acuña Subjective ROS Limited/Unobtainable: Yes Neurologic: Reports: confusion, other - on restraint Allergies: Coded Allergies: PENICILLINS (Verified Allergy, Unknown, 06/18/19) Objective Vital Signs Last 24 Hour Vital Signs Date Time Temp Pulse Resp B/P (MAP) Pulse Ox O2 Delivery O2 Flow Rate FiO2 06/30/19 06:13 114 124/56 06/30/19 04:00 125 06/30/19 04:00 96.8 109 19 112/59 (76) 97 06/30/19 00:00 116 06/30/19 00:00 97.2 115 19 110/63 (79) 98 06/29/19 22:00 112 98/58 06/29/19 21:00 Nasal Cannula 2.0 06/29/19 20:00 96.9 112 20 98/58 (71) 99 06/29/19 20:00 117 06/29/19 16:00 123 06/29/19 16:00 97.2 104 20 113/66 (82) 100 06/29/19 14:00 97 106/56 Height (Feet): 5 Height (Inches): 3.00 Weight (Pounds): 134 HEENT: mucous membranes moist Respiratory/Chest: lungs clear Cardiovascular: tachycardia Abdomen: distended Extremities: no edema Neurologic/Psychiatric: disoriented Laboratory Tests Test 06/30/19 05:39 White Blood Count 15.0 K/UL (4.8-10.8) H Red Blood Count 2.21 M/UL (4.20-5.40) L Hemoglobin 9.9 G/DL (12.0-16.0) L Hematocrit 22.4 % (37.0-47.0) L Mean Corpuscular Volume 101 FL (80-99) H Mean Corpuscular Hemoglobin 44.7 PG (27.0-31.0) H Mean Corpuscular Hemoglobin Concent 44.3 G/DL (32.0-36.0) H Red Cell Distribution Width 22.2 % (11.6-14.8) H Platelet Count 66 K/UL (150-450) L Mean Platelet Volume 6.2 FL (6.5-10.1) L Neutrophils (%) (Auto) % (45.0-75.0) Lymphocytes (%) (Auto) % (20.0-45.0) Monocytes (%) (Auto) % (1.0-10.0) Eosinophils (%) (Auto) % (0.0-3.0) Basophils (%) (Auto) % (0.0-2.0) Neutrophils % (Manual) Pending Lymphocytes % (Manual) Pending Platelet Estimate Pending Platelet Morphology Pending Sodium Level 148 MMOL/L (136-145) H Potassium Level 5.0 MMOL/L (3.5-5.1) Chloride Level 116 MMOL/L (98-107) H Carbon Dioxide Level 19 MMOL/L (21-32) L Anion Gap 13 mmol/L (5-15) Blood Urea Nitrogen 82 mg/dL (7-18) H Creatinine 1.4 MG/DL (0.55-1.30) H Estimat Glomerular Filtration Rate 37.5 mL/min (>60) Glucose Level 167 MG/DL (74-106) H Calcium Level 8.3 MG/DL (8.5-10.1) L Total Bilirubin 2.7 MG/DL (0.2-1.0) H Direct Bilirubin 1.6 MG/DL (0.0-0.3) H Aspartate Amino Transf (AST/SGOT) 38 U/L (15-37) H Alanine Aminotransferase (ALT/SGPT) 15 U/L (12-78) Alkaline Phosphatase 159 U/L (46-116) H Total Protein 6.3 G/DL (6.4-8.2) L Albumin 2.5 G/DL (3.4-5.0) L Globulin 3.8 g/dL Albumin/Globulin Ratio 0.7 (1.0-2.7) L Current Medications Medications (Trade) Dose Ordered Sig/Idalia Route PRN Reason Start Time Stop Time Status Last Admin Dose Admin Acetaminophen (Tylenol) 500 mg Q6H PRN ORAL Mild Pain/Temp > 100.5 06/25/19 15:15 07/18/19 15:14 Dextrose 500 ml @ 500 mls/hr ONCE ONCE IV 06/30/19 12:00 06/30/19 12:59 Dextrose (Dextrose 50%) 25 ml Q30M PRN IV Hypoglycemia 06/25/19 15:15 09/17/19 09:44 Dextrose (Dextrose 50%) 50 ml Q30M PRN IV Hypoglycemia 06/25/19 15:15 09/17/19 09:44 Guaifenesin/ Codeine Phosphate (Robitussin with codeine) 5 ml Q6H PRN ORAL For Cough 06/25/19 16:00 07/19/19 09:59 Insulin Aspart (NovoLOG) BEFORE MEALS AND HS SUBQ 06/25/19 16:30 09/17/19 11:29 06/30/19 06:12 Lactulose (Cephulac) 20 gm THREE TIMES A DAY ORAL 06/26/19 09:00 07/26/19 08:59 06/30/19 11:12 Lorazepam (Ativan 2mg/ml 1ml) 1 mg Q4HR PRN IM Agitation 06/27/19 23:30 07/04/19 23:29 06/28/19 23:49 Metoclopramide HCl (Reglan) 2.5 mg Q6H PRN IVP Nausea & Vomiting 06/26/19 08:00 07/26/19 07:59 Midodrine (Pro-Amatine) 2.5 mg THREE TIMES A DAY ORAL 06/27/19 13:00 09/25/19 12:59 06/30/19 11:12 Naloxone HCl (Narcan) 0.2 mg Q2M PRN IVP respiratory depression 06/25/19 15:15 09/18/19 11:59 Olanzapine (ZyPREXA) 7.5 mg BID ORAL 06/28/19 09:00 08/12/19 08:59 06/29/19 17:39 Pantoprazole (Protonix) 40 mg DAILY IVP 06/28/19 09:00 07/23/19 08:59 06/30/19 11:12 Propranolol HCl (Inderal) 15 mg Q8HR ORAL 06/25/19 22:00 07/21/19 13:59 06/30/19 06:13 Tramadol HCl (Ultram) 25 mg Q4H PRN GT severe pain 06/27/19 13:18 07/04/19 13:17 06/30/19 02:36 Manuel Kemp MD Jun 30, 2019 12:10
--- NOTE | 2019-06-30 12:28 | NUR ---
NURSE NOTES: Received patient into room 401 bed 2,patient opens eyes to touch,nonverbal.02 on at 2L N/C.respirations unlabored.Neal catheter is in place and draining dark urine.Noted patient abdomen is distended.From report,patient not eating.lunch is at bedside.Side rails padded.Bed alarm on,placed call light within reach.
--- NOTE | 2019-06-30 13:14 | General Progress Note ---
Assessment/Plan Assessment/Plan: (1) Intractable pain (2) Metastatic disease possible hepatocellular carcinoma Patient will be continued on Tramadol as needed D/w Dr. Cole and he concurred. Subjective Date patient seen: Jun 30, 2019 Time patient seen: 12:00 - pm ROS Limited/Unobtainable: Yes Allergies: Coded Allergies: PENICILLINS (Verified Allergy, Unknown, 06/18/19) Subjective Patient is in bed and showing no signs of pain, getting the Tramadol as needed 2 doses in the last 24hrs. As per GI and Oncologist hospice eval needed. Objective Last 24 Hour Vital Signs Date Time Temp Pulse Resp B/P (MAP) Pulse Ox O2 Delivery O2 Flow Rate FiO2 06/30/19 09:00 Nasal Cannula 2.0 06/30/19 08:00 92 06/30/19 08:00 97.9 92 18 98/58 (71) 99 06/30/19 06:13 114 124/56 06/30/19 04:00 125 06/30/19 04:00 96.8 109 19 112/59 (76) 97 06/30/19 00:00 116 06/30/19 00:00 97.2 115 19 110/63 (79) 98 06/29/19 22:00 112 98/58 06/29/19 21:00 Nasal Cannula 2.0 06/29/19 20:00 96.9 112 20 98/58 (71) 99 06/29/19 20:00 117 06/29/19 16:00 123 06/29/19 16:00 97.2 104 20 113/66 (82) 100 06/29/19 14:00 97 106/56 Intake and Output 06/29/19 06/30/19 19:00 07:00 Intake Total 130 ml Output Total 400 ml Balance -270 ml Intake Oral 130 ml Output Urine Total 400 ml Laboratory Tests 06/30/19 05:39: White Blood Count 15.0H, Red Blood Count 2.21L, Hemoglobin 9.9L, Hematocrit 22.4L, Mean Corpuscular Volume 101H, Mean Corpuscular Hemoglobin 44.7H, Mean Corpuscular Hemoglobin Concent 44.3H, Red Cell Distribution Width 22.2H, Platelet Count 66L, Mean Platelet Volume 6.2L, Neutrophils (%) (Auto) , Lymphocytes (%) (Auto) , Monocytes (%) (Auto) , Eosinophils (%) (Auto) , Basophils (%) (Auto) , Neutrophils % (Manual) 83H, Lymphocytes % (Manual) 8L, Monocytes % (Manual) 7, Eosinophils % (Manual) 2, Basophils % (Manual) 0, Band Neutrophils 0, Platelet Estimate DecreasedL, Platelet Morphology Normal, Hypochromasia 2+, Anisocytosis 2+, Macrocytosis 1+, Sodium Level 148H, Potassium Level 5.0, Chloride Level 116H, Carbon Dioxide Level 19L, Anion Gap 13 , Blood Urea Nitrogen 82H, Creatinine 1.4H, Estimat Glomerular Filtration Rate 37.5, Glucose Level 167H, Calcium Level 8.3L, Total Bilirubin 2.7H, Direct Bilirubin 1.6H, Aspartate Amino Transf (AST/SGOT) 38H, Alanine Aminotransferase (ALT/SGPT) 15, Alkaline Phosphatase 159H, Total Protein 6.3L, Albumin 2.5L, Globulin 3.8, Albumin/Globulin Ratio 0.7L Height (Feet): 5 Height (Inches): 3.00 Weight (Pounds): 134 Objective General Appearance: no apparent distress EENT: normal ENT inspection Neck: non-tender, normal alignment Cardiovascular: normal rate, regular rhythm Abdomen: distended Extremities: non-tender Edema: trace edema Neurologic: responsive Joey Gilmore Jun 30, 2019 13:14
[2019-06-30] MEDS ORDERED: Varibar Thin Liquid powder 148gm MC PRN (13:45)
[2019-06-30] MEDS ORDERED: Varibar Nectar 240ml MC PRN (13:45)
[2019-06-30] MEDS ORDERED: Varibar Honey 250ml MC PRN (13:45)
[2019-06-30] MEDS ORDERED: Varibar Pudding 230ml MC PRN (13:45)
--- NOTE | 2019-06-30 14:00 | Surgery Progress Note ---
Surgery Progress Note Subjective Additional Comments downgraded wbc 15k h/h stable lft';s noted ill appearing prognosis guarded Objective Last 24 Hour Vital Signs Date Time Temp Pulse Resp B/P (MAP) Pulse Ox O2 Delivery O2 Flow Rate FiO2 06/30/19 09:00 Nasal Cannula 2.0 06/30/19 08:00 92 06/30/19 08:00 97.9 92 18 98/58 (71) 99 06/30/19 06:13 114 124/56 06/30/19 04:00 125 06/30/19 04:00 96.8 109 19 112/59 (76) 97 06/30/19 00:00 116 06/30/19 00:00 97.2 115 19 110/63 (79) 98 06/29/19 22:00 112 98/58 06/29/19 21:00 Nasal Cannula 2.0 06/29/19 20:00 96.9 112 20 98/58 (71) 99 06/29/19 20:00 117 06/29/19 16:00 123 06/29/19 16:00 97.2 104 20 113/66 (82) 100 06/29/19 14:00 97 106/56 I&O Intake and Output 06/29/19 06/30/19 19:00 07:00 Intake Total 130 ml Output Total 400 ml Balance -270 ml Intake Oral 130 ml Output Urine Total 400 ml Cardiovascular: RSR Respiratory: decreased breath sounds Abdomen: soft, distended, non-tender, decreased bowel sounds Extremities: no tenderness, no cyanosis, other Laboratory Tests Test 06/30/19 05:39 White Blood Count 15.0 K/UL (4.8-10.8) H Red Blood Count 2.21 M/UL (4.20-5.40) L Hemoglobin 9.9 G/DL (12.0-16.0) L Hematocrit 22.4 % (37.0-47.0) L Mean Corpuscular Volume 101 FL (80-99) H Mean Corpuscular Hemoglobin 44.7 PG (27.0-31.0) H Mean Corpuscular Hemoglobin Concent 44.3 G/DL (32.0-36.0) H Red Cell Distribution Width 22.2 % (11.6-14.8) H Platelet Count 66 K/UL (150-450) L Mean Platelet Volume 6.2 FL (6.5-10.1) L Neutrophils (%) (Auto) % (45.0-75.0) Lymphocytes (%) (Auto) % (20.0-45.0) Monocytes (%) (Auto) % (1.0-10.0) Eosinophils (%) (Auto) % (0.0-3.0) Basophils (%) (Auto) % (0.0-2.0) Neutrophils % (Manual) 83 % (45-75) H Lymphocytes % (Manual) 8 % (20-45) L Monocytes % (Manual) 7 % (1-10) Eosinophils % (Manual) 2 % (0-3) Basophils % (Manual) 0 % (0-2) Band Neutrophils 0 % (0-8) Platelet Estimate Decreased L Platelet Morphology Normal Hypochromasia 2+ Anisocytosis 2+ Macrocytosis 1+ Sodium Level 148 MMOL/L (136-145) H Potassium Level 5.0 MMOL/L (3.5-5.1) Chloride Level 116 MMOL/L (98-107) H Carbon Dioxide Level 19 MMOL/L (21-32) L Anion Gap 13 mmol/L (5-15) Blood Urea Nitrogen 82 mg/dL (7-18) H Creatinine 1.4 MG/DL (0.55-1.30) H Estimat Glomerular Filtration Rate 37.5 mL/min (>60) Glucose Level 167 MG/DL (74-106) H Calcium Level 8.3 MG/DL (8.5-10.1) L Total Bilirubin 2.7 MG/DL (0.2-1.0) H Direct Bilirubin 1.6 MG/DL (0.0-0.3) H Aspartate Amino Transf (AST/SGOT) 38 U/L (15-37) H Alanine Aminotransferase (ALT/SGPT) 15 U/L (12-78) Alkaline Phosphatase 159 U/L (46-116) H Total Protein 6.3 G/DL (6.4-8.2) L Albumin 2.5 G/DL (3.4-5.0) L Globulin 3.8 g/dL Albumin/Globulin Ratio 0.7 (1.0-2.7) L Plan Problems: (1) Abdominal pain Assessment & Plan: [age]-year-old female multiple medical comorbidities presented with abdominal discomfort noted to have abnormal LFTs leukocytosis. CT reviewed liver cirrhotic and there is a mass. Possibly carcinoma likely. HCC. Abdominal exam without peritonitis no acute surgical intervention indicated recommended at this time supportive treatment. Will follow with recommendations thank you tumor markers show afp 155, cea 26, ca19.9 1660 Consider comfort care/hospice can consider biopsy for diagnosis but unfortunately will unlikely help as advanced disease and given differential likely terminal Will follow with recommendations Covid results negative Lower thorax: Unremarkable lung bases. Intraperitoneal space: No free air. Gastrointestinal tract: Unremarkable. No dilation. Bones/joints: Degenerative spine findings and osteopenia. Tubes, lines and devices: Enteric tube with tip and proximal sideport below the gastroesophageal junction. IMPRESSION: 1. Enteric tube with tip and proximal sideport below the gastroesophageal junction. 2. Unremarkable lung bases. 3. No acute abnormality definitively seen. GI placed feeding tube cont feeds as tolerated severe anemia - gi blood loss? transfuse as per heme trend s/p para will monitor exam Thank you Pt presented on admission with multiple skin breakdown. Non-blanching erythema without induration.(L)7cm x (W)9cm . L heel is boggy with non-blanchable erythema(L)5.5cm x (W)4.5cm. R heel is boggy with non-blanchable erythema(L)6cm x (W)5.3cm. Pt did not exhibit any distress to indicate pain when each heel individually palpated. Tx.Plan: Apply Moisture Barrier Paste to Sacrum. Cover with Optifoam drsg. Change every 3 days and prn. Apply Cavilon Skin Barrier to both Heels. Cover each Heel with Optifoam drsg. change every 7 days and prn. Reposition at least every 2hours or as tolerated. Off-load heels with pillow. The liver is cirrhotic. There is evidence of portal hypertension including splenomegaly and gastric varices. There is a mass in the left lobe, primarily in the lateral segments, but also extending medially. This measures 7.7 x 5 x 4.8 cm in greatest transverse, anteroposterior, and craniocaudal dimensions respectively. This is hypodense/hypoenhancing compared to relatively normal adjacent parenchyma in the portal venous phase. This could reflect early washout of a hepatocellular carcinoma, particularly given cirrhosis. A large metastasis is also possible. Cholelithiasis. 2.2 cm densely calcified stone in the dependent gallbladder. No biliary ductal dilation. Both kidneys demonstrate multiple hypodense lesions, which are too small to characterize. No hydronephrosis. There is no bowel obstruction or perforation. The appendix is not well seen. Leftward pelvic calcification may reflect a subserosal uterine fibroid. No abdominal aortic aneurysm. No acute fracture. IMPRESSION: 7.7 cm left lobe hepatic mass is concerning for hepatocellular carcinoma, particularly given cirrhosis. A large metastasis is also possible. Consider multiphase hepatic protocol MRI. Right renal hypodensities that are too small to characterize. Cholelithiasis. [place] Jun 30, 2019 14:00
[2019-06-30] MEDS ORDERED: Naloxone 0.4mg/ml Inj IVP PRN ×2 (14:30→21:45)
[2019-06-30] MEDS ORDERED: Acetaminophen 500mg (ES) tab ORAL PRN (14:34)
[2019-06-30] MEDS ORDERED: guaiFENesin w/Codeine 5ml Liq ud ORAL PRN (15:19)
[2019-06-30] MEDS ORDERED: Metoclopramide 10mg/2ml Inj IVP PRN (15:20)
[2019-06-30] MEDS ORDERED: traMADol 50mg tab GT PRN ×2 (15:22→23:30)
--- NOTE | 2019-06-30 16:42 | NUR ---
INSURANCE REVIEW FAXED TO [facility]#[phone] FAX#[phone] REVIEWS/CLINICALS
--- NOTE | 2019-06-30 17:43 | NUR ---
NURSE NOTES: \patient continues to be lethargic ,patient arousable by sterna rub,Blood pressure 81/41.Heart rate90 ,o2 98% 0n2L,respirations 12.Patient blood sugar 201,patient too lethargic to eat not able to give po medication.Dr salguero notified,waiting for call back.
[2019-06-30] MEDS ORDERED: Lactulose 20gm/30ml UDC ORAL SCH (18:00)
--- NOTE | 2019-06-30 18:44 | NUR ---
NURSE NOTES: DR Acuña was notified on patient condition.DR Acuña order to call DR Aguialr and DR Smith. DR Aguilar called back and to tranfer patient to ICU will notify DR Acuña.DR Smith was called per DR Acuña order.
[2019-06-30] MEDS ORDERED: cefTRIAXone 1 GM in D5W 55 ML IVPB SCH (19:30)
--- NOTE | 2019-06-30 19:45 | NUR ---
HAND-OFF: Report given to Joaquim KENDRICK.
--- NOTE | 2019-06-30 19:45 | NUR ---
NURSE NOTES: DR Smith called back with order received.Aware that patient will be transferred to ICU.Neuro check done ,DR Smith aware.
--- NOTE | 2019-06-30 20:00 | NUR ---
NURSE NOTES: Patient received in bed, lethargic, on o2 via NC. Breathing is slow and shallow. Arousable to pain. IV is intact and patent. Pending transfer to ICU per Dr. Aguilar, awaiting bed assignment from supervisor sterile processing. Patient placed on trendelenberg position, bilateral legs elevated. BP 90/49. Will continue close monitoring.
--- NOTE | 2019-06-30 21:33 | NUR ---
NURSE NOTES: Received order to DC restraint and DC all psych medications from Dr. Holden.
--- NOTE | 2019-06-30 21:44 | NUR ---
TRANSFER TO FLOOR: Patient transferred to [facility] ICU, per Dr. Aguilar. Report given to Aristeo KENDRICK. Belongings and medications given to Suresh KENDRICK. Family (Anmol Lopez,son) informed of transfer.
--- NOTE | 2019-06-30 21:52 | General Progress Note ---
Assessment/Plan Problem List: (1) Dehydration ICD Codes: E86.0 - Dehydration SNOMED: 46120269 (2) Hypoxia ICD Codes: R09.02 - Hypoxemia SNOMED: 355173835 (3) Abdominal pain ICD Codes: R10.9 - Unspecified abdominal pain SNOMED: 43252164 Qualifiers: Qualified Codes: R10.9 - Unspecified abdominal pain (4) Pneumonia ICD Codes: J18.9 - Pneumonia, unspecified organism SNOMED: 409285988 Qualifiers: Qualified Codes: J18.9 - Pneumonia, unspecified organism (5) HCC (hepatocellular carcinoma) ICD Codes: C22.0 - Liver cell carcinoma SNOMED: 538709851 Status: deteriorating Assessment/Plan: puree diet lethargic so transferred to icu getting worse thrombocytopenia due to cirrhosis moniter for bleeding cirrhosis cri portal htn gastric varices sugar is good mets cancer HCC niddm poor prognosis Arf worsening leukocytosis hypotension Subjective ROS Limited/Unobtainable: Yes Allergies: Coded Allergies: PENICILLINS (Verified Allergy, Unknown, 06/18/19) Objective Last 24 Hour Vital Signs Date Time Temp Pulse Resp B/P (MAP) Pulse Ox O2 Delivery O2 Flow Rate FiO2 06/30/19 20:53 91 14 86/48 (61) 06/30/19 20:00 98.3 91 14 90/49 (63) 100 06/30/19 16:00 97.3 90 16 93/51 (65) 97 06/30/19 09:00 Nasal Cannula 2.0 06/30/19 08:00 92 06/30/19 08:00 97.9 92 18 98/58 (71) 99 06/30/19 06:13 114 124/56 06/30/19 04:00 125 06/30/19 04:00 96.8 109 19 112/59 (76) 97 06/30/19 00:00 116 06/30/19 00:00 97.2 115 19 110/63 (79) 98 06/29/19 22:00 112 98/58 Intake and Output 06/29/19 06/30/19 19:00 07:00 Intake Total 130 ml Output Total 400 ml Balance -270 ml Intake Oral 130 ml Output Urine Total 400 ml Laboratory Tests 06/30/19 05:39: White Blood Count 15.0H, Red Blood Count 2.21L, Hemoglobin 9.9L, Hematocrit 22.4L, Mean Corpuscular Volume 101H, Mean Corpuscular Hemoglobin 44.7H, Mean Corpuscular Hemoglobin Concent 44.3H, Red Cell Distribution Width 22.2H, Platelet Count 66L, Mean Platelet Volume 6.2L, Neutrophils (%) (Auto) , Lymphocytes (%) (Auto) , Monocytes (%) (Auto) , Eosinophils (%) (Auto) , Basophils (%) (Auto) , Neutrophils % (Manual) 83H, Lymphocytes % (Manual) 8L, Monocytes % (Manual) 7, Eosinophils % (Manual) 2, Basophils % (Manual) 0, Band Neutrophils 0, Platelet Estimate DecreasedL, Platelet Morphology Normal, Hypochromasia 2+, Anisocytosis 2+, Macrocytosis 1+, Sodium Level 148H, Potassium Level 5.0, Chloride Level 116H, Carbon Dioxide Level 19L, Anion Gap 13 , Blood Urea Nitrogen 82H, Creatinine 1.4H, Estimat Glomerular Filtration Rate 37.5, Glucose Level 167H, Calcium Level 8.3L, Total Bilirubin 2.7H, Direct Bilirubin 1.6H, Aspartate Amino Transf (AST/SGOT) 38H, Alanine Aminotransferase (ALT/SGPT) 15, Alkaline Phosphatase 159H, Total Protein 6.3L, Albumin 2.5L, Globulin 3.8, Albumin/Globulin Ratio 0.7L 06/30/19 20:39: Arterial Blood pH 7.412, Arterial Blood Partial Pressure CO2 28.8L, Arterial Blood Partial Pressure O2 146.9H, Arterial Blood HCO3 17.9*L, Arterial Blood Oxygen Saturation 98.9, Arterial Blood Base Excess -5.7L, Sascha Test Positive 06/30/19 20:50: Ammonia 24 Height (Feet): 5 Height (Inches): 3.00 Weight (Pounds): 134 General Appearance: lethargic, confused Era Acuña MD Jun 30, 2019 21:52
[2019-06-30] MEDS ORDERED: Propranolol 10mg tab ORAL SCH ×2 (22:00)
[2019-06-30] MEDS ORDERED: Midodrine 10mg tab NG ONE (22:15)
[2019-06-30] MEDS ORDERED: Levophed 4mg/4mL Inj IV ONE (22:18)
--- NOTE | 2019-06-30 22:24 | Psych Consult Progress Note ---
Psychiatry Progress Note Psychiatry Progress Note Subjective the pt was agitated yesterday. today lethargic. no ativan was given today. leukocytosis. metabolic abn. hypotention due to anemia. zyprexa doesn't affect bp. ativan was not given yesterday. Medications Current Medications Medications (Trade) Dose Ordered Sig/Idalia Route PRN Reason Start Time Stop Time Status Last Admin Dose Admin Acetaminophen (Tylenol) 500 mg Q6H PRN ORAL MILD/TEMP 07/01/19 02:45 07/18/19 14:33 Barium Sulfate (Varibar Honey) 250 ml NOW PRN MC RAD 07/01/19 13:45 07/03/19 13:30 Barium Sulfate (Varibar [place]) 240 ml NOW PRN MC RAD 07/01/19 13:45 07/03/19 13:30 Barium Sulfate (Varibar Pudding) 230 ml NOW PRN MC RAD 07/01/19 13:45 07/03/19 13:30 Barium Sulfate (Varibar Thin Liquid powder) 148 gm NOW PRN RAD 07/01/19 13:45 07/03/19 13:30 Ceftriaxone Sodium 1 gm/ Dextrose 55 ml @ 110 mls/hr Q24H IVPB 07/01/19 19:30 07/07/19 19:29 Dextrose (Dextrose 50%) 25 ml Q30M PRN IV Hypoglycemia 06/30/19 21:45 09/17/19 14:33 Dextrose (Dextrose 50%) 50 ml Q30M PRN IV Hypoglycemia 06/30/19 21:45 09/17/19 09:44 Dextrose/Sodium Chloride 1,000 ml @ 75 mls/hr [id number] IV 06/30/19 22:15 07/30/19 22:14 Insulin Aspart (NovoLOG) BEFORE MEALS AND HS SUBQ 07/01/19 06:30 09/17/19 11:29 Lactulose (Cephulac) 20 gm THREE TIMES A DAY NG 07/01/19 09:00 07/26/19 08:59 Midodrine (Pro-Amatine) 10 mg ONCE ONCE NG 06/30/19 22:15 06/30/19 22:16 UNV Midodrine (Pro-Amatine) 10 mg THREE TIMES A DAY NG 07/01/19 09:00 09/25/19 12:59 Naloxone HCl (Narcan) 0.2 mg Q2M PRN IVP respiratory depression 06/30/19 21:45 09/18/19 11:59 Norepinephrine Bitartrate 4 mg/ Dextrose 250 ml @ 0 mls/hr Q24H IV 06/30/19 22:30 07/30/19 22:29 UNV Pantoprazole (Protonix) 40 mg Q12HR IVP 07/01/19 09:00 07/23/19 08:59 Sodium Chloride 500 ml @ 999 mls/hr Q31M ONCE IV 06/30/19 22:15 06/30/19 22:45 Allergies: Coded Allergies: PENICILLINS (Verified Allergy, Unknown, 06/18/19) Objective Data Height (Feet): 5 Height (Inches): 3.00 Weight (Pounds): 134 General Appearance: no apparent distress, lethargic, confused Assessment/Plan Status: deteriorating Assessment/Plan: PLAN: 1. dc Lorazepam p.r.n. 2. dced Olanzapine 7.5 mg p.o. bid. restarted by pmd. will dc 3. Continue to follow and readjust the medications. Per Holden MD Jun 30, 2019 22:24
--- NOTE | 2019-06-30 22:44 | Emergency Room Report ---
Physical Exam Vital Signs Date Time Temp Pulse Resp B/P (MAP) Pulse Ox O2 Delivery O2 Flow Rate FiO2 06/26/19 08:00 98.8 103 18 89/42 (58) 100 06/26/19 08:16 Nasal Cannula 3.0 Medical Decision Making Diagnostic Impression: Primary Impression: Hypoxia Additional Impressions: HCC (hepatocellular carcinoma) Abdominal pain Qualified Codes: R10.9 - Unspecified abdominal pain Pneumonia Qualified Codes: J18.9 - Pneumonia, unspecified organism Dehydration ER Course Called to the ICU to place a central line on the patient due to persistent hypotension and need to start pressors. A right internal jugular line was placed under ultrasound guidance on first attempt without difficulty. Follow- up chest x-ray does not show pneumothorax and shows a central line tip at the level of the right atrium. Line okay for use. Continue care per ICU team. Recall as needed. Chest X-Ray Diagnostic Results Chest X-Ray Diagnostic Results : Chest X-Ray Ordered: Yes # of Views/Limited/Complete: 1 View Indication: Other - Central line placement EP Interpretation: Yes Interpretation: no pneumothorax, other - Triple-lumen tip at the level of the right atrium. No pneumothorax. Impression: Other - Satisfactory placement of central line Electronically Signed by: Electronically signed by Dr. Luis Eduardo Collins Last Vital Signs Date Time Temp Pulse Resp B/P (MAP) Pulse Ox O2 Delivery O2 Flow Rate FiO2 06/30/19 21:00 Nasal Cannula 2.0 06/30/19 20:53 91 14 86/48 (61) 06/30/19 20:00 98.3 100 Disposition: ADMITTED INPATIENT Condition: Serious Referrals: Era Acuña MD (PCP) Procedures Central Line Central Line : Consent: Emergent Central Line Lumen: triple Maximal Sterile Barrier Tech: yes cap, yes mask, yes sterile gown, yes sterile gloves, yes large sterile sheet, yes hand hygiene, yes chlorhexidine prep Central Line Postion: internal jugular (R) Anesthesia: Lidocaine cc's of anesthesia: 5 Complications: none Central Line Post Position: sutured, good blood return, position confirmed w / CXR Attempts: One Patient Tolerated: Well Complications: None Luis Eduardo Collins MD Jun 30, 2019 22:44
--- NOTE | 2019-06-30 22:58 | Diagnostic Imaging Report ---
Indication: Status post central line placement Technique: One view of the chest Comparison: 06/27/2019 Findings: Inspiration is suboptimal. Interim placement right jugular central venous catheter, tip which projects at the level of the mid right atrium. No gross pneumothorax. There is slightly increased atelectasis at the right lung base and in the left perihilar region. Generalized mild bilateral interstitial disease persists, unchanged, probably exaggerated by low lung volumes. There is equivocal slight blunting of the right costophrenic sulcus Impression: Right internal jugular central venous catheter, tip in the mid right atrium. No radiographically evident, location Increased bilateral atelectatic changes. Unchanged mild interstitial edema versus infiltrates Cannot rule out small right pleural effusion
--- NOTE | 2019-06-30 23:00 | NUR ---
NURSE NOTES: received pt transfer form 4e pt lethargic and bp 86/[address] JEREMY MURRAY NOTIFY PT IS UNABLE TO DO MRI OF HEAD AND DR JACOBS FOR INSERTION CENTRAL LINE
[2019-06-30] MEDS: D5NS 1,000 ML IV SCH (23:34)
[2019-07-01] VITALS (68 sets, daily range): BP systolic 91–146; BP diastolic 28–132
--- NOTE | 2019-07-01 | NUR ---
NURSE NOTES: levo drip was stared after central line was inserted awake and alert
[2019-07-01] MEDS ORDERED: Acetaminophen 500mg (ES) tab ORAL PRN (02:45)
[2019-07-01] MEDS ORDERED: guaiFENesin w/Codeine 5ml Liq ud ORAL PRN (03:30)
[2019-07-01] MEDS ORDERED: Metoclopramide 10mg/2ml Inj IVP PRN (03:30)
--- NOTE | 2019-07-01 04:00 | NUR ---
NURSE NOTES: comp bed bath done oral care and back done
[2019-07-01 05:51] LABS: PLATELET COUNT 83 K/UL (150-450); RED CELL DISTRIBUTION WIDTH 20.7 % (11.6-14.8)
--- NOTE | 2019-07-01 06:00 | NUR ---
NURSE NOTES: awake and confuse and restless amadeo soft wrest restraint order
[2019-07-01 06:04] LABS: INR 1.4 (0.9-1.1)
[2019-07-01] MEDS: NovoLOG Insulin Flexpen SUBQ SCH ×5 (06:15→21:07)
[2019-07-01 06:21] LABS: AMMONIA 39 umol/L (11-32)
[2019-07-01 06:39] LABS: ALANINE AMINOTRANSFERASE 14 U/L (12-78); ALBUMIN 2.9 G/DL (3.4-5.0); ALBUMIN/GLOBULIN RATIO 0.9 (1.0-2.7); ALKALINE PHOSPHATASE 138 U/L (46-116); ANION GAP 12 mmol/L (5-15); ASPARTATE AMINO TRANSFERASE 29 U/L (15-37); BILIRUBIN,TOTAL 2.6 MG/DL (0.2-1.0); BLOOD UREA NITROGEN 91 mg/dL (7-18); CALCIUM 7.7 MG/DL (8.5-10.1); CARBON DIOXIDE 20 MMOL/L (21-32); CHLORIDE 115 MMOL/L (98-107); CREATININE 1.8 MG/DL (0.55-1.30); FERRITIN 160 NG/ML (8-388); GAMMA GLUTAMYL TRANSPEPTIDASE 152 U/L (5-85); PHOSPHORUS 5.3 MG/DL (2.5-4.9); POTASSIUM 4.6 MMOL/L (3.5-5.1); SODIUM 147 MMOL/L (136-145)
[2019-07-01 06:41] LABS: BILIRUBIN,DIRECT 1.5 MG/DL (0.0-0.3)
--- NOTE | 2019-07-01 07:10 | NUR ---
NURSE NOTES: Received patient from AROLDO Thomas. Patient vital signs stable at this time on Levophed at 60mcg/min. Patient confused to place, purpose and time. patient alert to name. Patient has history of liver cancer with high ammonia level at this time. Patient has 2L nasal cannula at this time with no sign of respiratory distress. RR 12 and SpO2 100%. Patient showing sinus rhythm on the environmental monitoring specialist at this time. Patient has right internal jugular central line that is patent, asymptomatic, and running levophed at 6mcg/min and D5 normal saline at 75mL/hr. Patient has dominguez for urine retention with light korin urine noted. Patient has sacral DTI noted. Abdomen distended, round, tight. Will turn patient every two hours and as needed. Will order low air loss mattress from central supply. Patient bed in low position with bed alarm on and call light in reach at this time. Will continue to monitor. Oral care and repositioning done at this time. Addendum: 07/01/19 at 0805 by Alysa Avila RN Patient on bilateral soft wrist restraint as patient witnessed attempting to remove all devices and attempting to get up with out assistance and placing herself in danger of falling. peripheral pulses present. No edema or skin breakdown noted.
--- NOTE | 2019-07-01 07:36 | NUR ---
RD ASSESSMENT & RECOMMENDATIONS SEE CARE ACTIVITY FOR COMPLETE ASSESSMENT DAILY ESTIMATED NEEDS: Needs based on hepatic, pulmonary 61.8kg 25-30 kcals/kg 5504-1775 total kcals 1-1.5 g protein/kg 62-93 g total protein 25-30 mL/kg 3777-9623 total fluid mLs NUTRITION DIAGNOSIS: Swallowing difficulty r/t dysphagia, confusion as evidenced by COMMUNICATIONS COORDINATOR julio, previously on puree texture w/ poor po intake, now s/p NGT insertion w/ an order for NGT feeding, currently s/p self pulling out of NGT, currently NPO. CURRENT DIET/TF:NPO ENTERAL NUTRITION RECOMMENDATIONS: Glucerna 1.2 @ 55ml/hr x 24 hrs to provide 1320ml, 1584kcal, 79g prot, 1063ml free water * With HEMODYNAMIC STABILITY and if part of POC, -> reobtain GI access for TF * Initiate Glucerna 1.2 @ 15ml/hr x 6 hrs * Advance TF 10ml q 4-6 hrs as tolerated to goal rate * HOB over 30 degrees * Without IVF, 130ml q 6 hrs * TF @ goal meets 100% est kcal/prot needs ADDITIONAL RECOMMENDATIONS: 1) W/ TF, monitor lytes daily, replete as needed (high risk for refeeding) 2) Monitor for hypoglycemia while NPO- consider maintaining D5 while NPO 3) Monitor need for long acting insulin w/ TF 4) Calibrated bed scale wts 5) Monitor NPO status: NPO/minimal intake status x 13 days (06/30) -> monitor POC, remains full code at this time. 6) Monitor hemodynamic stability: on NE @ 6mcg (06/30)
--- NOTE | 2019-07-01 07:55 | NUR ---
HAND-OFF: Report given toaj rn using sbar .
--- NOTE | 2019-07-01 08:01 | NUR ---
06/30 @7:55. MRI Exam is on hold. Per AROLDO Watt, pt is still unstable (on pressors) and unable to stay still due to ALOC. Pt is not a COVID-19 PT. DANIELLE
--- NOTE | 2019-07-01 08:15 | NUR ---
NURSE NOTES: Right Nares NGT inserted. NO sign of respiratory distress. NGT verified with auscultation and aspiration. Yellow/green gastric secretion noted. NGT secured to nose with paper tape. 75cm at the nares. STAT abdominal x-ray ordered. Will follow up.
--- NOTE | 2019-07-01 08:51 | Infectious Diseases Prog Note ---
Assessment/Plan Assessment/Plan IMPRESSION: Hypoxemia and abnormal CT scan of the chest, more likely metastatic disease. Cirrhosis of liver Portal hypertension, Diabetes mellitus, Hypertension, Cholelithiasis, Anemia, suspected liver neoplasm. Gastric varices Acute renal failure RECOMMENDATION: Continue Rocephin 06/17, 06/22 COVID-19 test. Prognosis is poor Case was D/W Dr Acuña Subjective ROS Limited/Unobtainable: Yes Constitutional: Reports: other - tranferred to ICU Cardiovascular: Reports: other - Hypotensive started on Levophed Neurologic: Reports: confusion, other - on restraint Allergies: Coded Allergies: PENICILLINS (Verified Allergy, Unknown, 06/18/19) Objective Vital Signs Last 24 Hour Vital Signs Date Time Temp Pulse Resp B/P (MAP) Pulse Ox O2 Delivery O2 Flow Rate FiO2 07/01/19 07:00 97 14 113/46 (68) 100 07/01/19 06:47 102/53 07/01/19 06:45 97 14 118/45 (69) 100 07/01/19 06:30 89 12 102/53 (69) 100 07/01/19 06:15 93 13 117/70 (86) 100 07/01/19 06:15 93 13 117/70 (86) 100 07/01/19 06:00 110/36 07/01/19 06:00 95 14 110/35 (60) 100 07/01/19 05:45 96 15 94/44 (61) 94 07/01/19 05:30 93 13 105/45 (65) 100 07/01/19 05:15 95 16 113/38 (63) 100 07/01/19 05:00 99 17 98/40 (59) 95 07/01/19 05:00 98/40 07/01/19 04:45 88 17 119/46 (70) 95 07/01/19 04:30 104 17 119/46 (70) 95 07/01/19 04:15 109 16 146/132 (137) 87 07/01/19 04:00 139/44 07/01/19 04:00 Nasal Cannula 2.0 07/01/19 04:00 97.8 98 139/44 (75) 84 07/01/19 03:45 93 119/76 (90) 94 07/01/19 03:30 91 105/48 (67) 100 07/01/19 03:15 105 125/69 (87) 100 07/01/19 03:00 119/58 07/01/19 03:00 97 14 119/58 (78) 100 07/01/19 02:30 94 106/43 (64) 100 07/01/19 02:00 94 109/44 (65) 100 07/01/19 02:00 113/40 07/01/19 01:00 96/43 07/01/19 00:45 87 92/41 (58) 100 07/01/19 00:30 89 94/41 (58) 100 07/01/19 00:15 88 97/42 (60) 100 07/01/19 00:00 Nasal Cannula 2.0 07/01/19 00:00 95/56 07/01/19 00:00 97.8 89 93/38 (56) 100 07/01/19 00:00 Nasal Cannula 2.0 06/30/19 23:45 91 101/38 (59) 100 06/30/19 23:15 88 14 94/44 (61) 100 06/30/19 23:00 90/46 06/30/19 23:00 94 12 93/37 (55) 100 06/30/19 22:45 94 12 90/50 (63) 100 06/30/19 22:30 86/46 06/30/19 22:30 97 17 93/42 (59) 93 06/30/19 22:15 89 14 94/40 (58) 06/30/19 22:00 88 13 85/38 (54) 100 06/30/19 21:45 89 13 86/45 (59) 100 06/30/19 21:30 90 13 80/40 (53) 100 06/30/19 21:28 89 13 87/40 (56) 100 06/30/19 21:15 97.4 94 17 86/84 (85) 100 06/30/19 21:00 Nasal Cannula 2.0 06/30/19 20:53 91 14 86/48 (61) 06/30/19 20:00 98.3 91 14 90/49 (63) 100 06/30/19 16:00 97.3 90 16 93/51 (65) 97 06/30/19 09:00 Nasal Cannula 2.0 Height (Feet): 5 Height (Inches): 3.00 Weight (Pounds): 141 General Appearance: no acute distress HEENT: mucous membranes moist Respiratory/Chest: lungs clear Cardiovascular: normal rate, other - RIJ central line Abdomen: distended Extremities: no edema Neurologic/Psychiatric: alert, disoriented Laboratory Tests Test 06/30/19 20:39 06/30/19 20:50 07/01/19 04:00 07/01/19 08:24 Arterial Blood pH 7.412 (7.350-7.450) 7.393 (7.350-7.450) Arterial Blood Partial Pressure CO2 28.8 mmHg (35.0-45.0) L 34.2 mmHg (35.0-45.0) L Arterial Blood Partial Pressure O2 146.9 mmHg (75.0-100.0) H 150.9 mmHg (75.0-100.0) H Arterial Blood HCO3 17.9 mmol/L (22.0-26.0) *L 20.4 mmol/L (22.0-26.0) L Arterial Blood Oxygen Saturation 98.9 % (95-100) 98.7 % (95-100) Arterial Blood Base Excess -5.7 (-2-2) L -4.0 (-2-2) L Sascha Test Positive Positive Ammonia 24 umol/L (11-32) 39 umol/L (11-32) H White Blood Count 18.0 K/UL (4.8-10.8) H Red Blood Count 2.03 M/UL (4.20-5.40) L Hemoglobin 8.5 G/DL (12.0-16.0) L Hematocrit 20.3 % (37.0-47.0) L Mean Corpuscular Volume 100 FL (80-99) H Mean Corpuscular Hemoglobin 41.7 PG (27.0-31.0) H Mean Corpuscular Hemoglobin Concent 41.6 G/DL (32.0-36.0) H Red Cell Distribution Width 20.7 % (11.6-14.8) H Platelet Count 83 K/UL (150-450) L Mean Platelet Volume 6.5 FL (6.5-10.1) Neutrophils (%) (Auto) % (45.0-75.0) Lymphocytes (%) (Auto) % (20.0-45.0) Monocytes (%) (Auto) % (1.0-10.0) Eosinophils (%) (Auto) % (0.0-3.0) Basophils (%) (Auto) % (0.0-2.0) Differential Total Cells Counted 100 Neutrophils % (Manual) 83 % (45-75) H Lymphocytes % (Manual) 7 % (20-45) L Monocytes % (Manual) 8 % (1-10) Eosinophils % (Manual) 1 % (0-3) Basophils % (Manual) 1 % (0-2) Band Neutrophils 0 % (0-8) Platelet Estimate Decreased L Platelet Morphology Normal Hypochromasia 2+ Anisocytosis 2+ Prothrombin Time 14.5 SEC (9.30-11.50) H Prothromb Time International Ratio 1.4 (0.9-1.1) H Activated Partial Thromboplast Time 33 SEC (23-33) D-Dimer 13.01 mg/L FEU (0.00-0.49) H Sodium Level 147 MMOL/L (136-145) H Potassium Level 4.6 MMOL/L (3.5-5.1) Chloride Level 115 MMOL/L (98-107) H Carbon Dioxide Level 20 MMOL/L (21-32) L Anion Gap 12 mmol/L (5-15) Blood Urea Nitrogen 91 mg/dL (7-18) H Creatinine 1.8 MG/DL (0.55-1.30) H Estimat Glomerular Filtration Rate 28.0 mL/min (>60) Glucose Level 248 MG/DL (74-106) H Lactic Acid Level 1.80 mmol/L (0.4-2.0) Uric Acid 13.9 MG/DL (2.6-7.2) H Calcium Level 7.7 MG/DL (8.5-10.1) L Phosphorus Level 5.3 MG/DL (2.5-4.9) H Ferritin 160 NG/ML (8-388) Total Bilirubin 2.6 MG/DL (0.2-1.0) H Direct Bilirubin 1.5 MG/DL (0.0-0.3) H Gamma Glutamyl Transpeptidase 152 U/L (5-85) H Aspartate Amino Transf (AST/SGOT) 29 U/L (15-37) Alanine Aminotransferase (ALT/SGPT) 14 U/L (12-78) Alkaline Phosphatase 138 U/L (46-116) H Lactate Dehydrogenase 257 U/L (81-234) H Troponin I 0.008 ng/mL (0.000-0.056) C-Reactive Protein, Quantitative 7.2 mg/dL (0.00-0.90) H Pro-B-Type Natriuretic Peptide 255 pg/mL (0-125) H Total Protein 6.2 G/DL (6.4-8.2) L Albumin 2.9 G/DL (3.4-5.0) L Globulin 3.3 g/dL Albumin/Globulin Ratio 0.9 (1.0-2.7) L Current Medications Medications (Trade) Dose Ordered Sig/Idalia Route PRN Reason Start Time Stop Time Status Last Admin Dose Admin Acetaminophen (Tylenol) 500 mg Q6H PRN ORAL MILD/TEMP 07/01/19 02:45 07/18/19 14:33 Barium Sulfate (Varibar Honey) 250 ml NOW PRN MC RAD 07/01/19 13:45 07/03/19 13:30 Barium Sulfate (Varibar Harahan) 240 ml NOW PRN MC RAD 07/01/19 13:45 07/03/19 13:30 Barium Sulfate (Varibar Pudding) 230 ml NOW PRN MC RAD 07/01/19 13:45 07/03/19 13:30 Barium Sulfate (Varibar Thin Liquid powder) 148 gm NOW PRN MC RAD 07/01/19 13:45 07/03/19 13:30 Ceftriaxone Sodium 1 gm/ Dextrose 55 ml @ 110 mls/hr Q24H IVPB 07/01/19 19:30 07/07/19 19:29 Dextrose (Dextrose 50%) 25 ml Q30M PRN IV Hypoglycemia 06/30/19 21:45 09/17/19 14:33 Dextrose (Dextrose 50%) 50 ml Q30M PRN IV Hypoglycemia 06/30/19 21:45 09/17/19 09:44 Dextrose/Sodium Chloride 1,000 ml @ 75 mls/hr [id number] IV 06/30/19 22:15 07/30/19 22:14 06/30/19 23:34 Insulin Aspart (NovoLOG) BEFORE MEALS AND HS SUBQ 07/01/19 06:30 09/17/19 11:29 07/01/19 06:15 Lactulose (Cephulac) 20 gm THREE TIMES A DAY NG 07/01/19 09:00 07/26/19 08:59 Midodrine (Pro-Amatine) 10 mg THREE TIMES A DAY NG 07/01/19 09:00 09/25/19 12:59 Naloxone HCl (Narcan) 0.2 mg Q2M PRN IVP respiratory depression 06/30/19 21:45 09/18/19 11:59 Norepinephrine Bitartrate 4 mg/ Dextrose 250 ml @ 0 mls/hr Q24H IV 06/30/19 22:30 07/30/19 22:29 07/01/19 06:47 Pantoprazole (Protonix) 40 mg Q12HR IVP 07/01/19 09:00 07/23/19 08:59 Manuel Kemp MD Jul 01, 2019 08:51
[2019-07-01] MEDS ORDERED: Pantoprazole Inj IVP SCH ×2 (09:00)
[2019-07-01] MEDS ORDERED: Lactulose 20gm/30ml UDC ORAL SCH (09:00)
[2019-07-01] MEDS: Pantoprazole Inj IVP SCH ×2 (09:11→21:03)
[2019-07-01 09:12] LABS: RED BLOOD COUNT 2.46 M/UL (4.20-5.40)
[2019-07-01 09:13] LABS: HEMATOCRIT 24.4 % (37.0-47.0); HEMOGLOBIN 8.2 G/DL (12.0-16.0)
[2019-07-01 09:14] LABS: MEAN CORPUSCULAR VOLUME 99 FL (80-99)
--- NOTE | 2019-07-01 09:30 | NUR ---
NURSE NOTES: PO medication held at this time. Awaiting verification of NGT.
--- NOTE | 2019-07-01 09:58 | NUR ---
RADIOLOGY DEPT., ABDOMEN X-RAY FOR NGT PLCMS COMPLETED.-P.DYE
--- NOTE | 2019-07-01 10:07 | General Progress Note ---
Assessment/Plan Status: deteriorating Assessment/Plan: Assessment/Plan Assessment/Plan: Assessment - Cirrhosis, ? etiology - Large liver mass, suspect CA - poor Px - lung nodules - abd distention, ascites -FTT -Anemia -UTI -DM -gallstones -GV Recommendations - Cirrhsis w/u (HBV, [facility], AIH, HHC) -low dose Propranolol -Repeat labs -tumor markers reviewed>>>? cholangio CA with liver mets _ s/p EGD>>> gastric varices -s/p paracentesis 7 lit last week albumin lactulose NGTF low dose reglan poor prognosis patient is keep pulling her NGT transferred to icu for hypotension ordered repeat paracentesis for comfort resume NGTF will fu Subjective ROS Limited/Unobtainable: No Allergies: Coded Allergies: PENICILLINS (Verified Allergy, Unknown, 06/18/19) Objective Last 24 Hour Vital Signs Date Time Temp Pulse Resp B/P (MAP) Pulse Ox O2 Delivery O2 Flow Rate FiO2 07/01/19 10:00 121/74 07/01/19 09:30 95 14 130/65 (86) 100 07/01/19 09:00 95 14 130/65 (86) 100 07/01/19 08:30 102 17 114/51 (72) 100 07/01/19 08:00 102 17 114/51 (72) 100 07/01/19 07:30 89 12 106/41 (62) 100 07/01/19 07:00 97 14 113/46 (68) 100 07/01/19 06:47 102/53 07/01/19 06:45 97 14 118/45 (69) 100 07/01/19 06:30 89 12 102/53 (69) 100 07/01/19 06:15 93 13 117/70 (86) 100 07/01/19 06:15 93 13 117/70 (86) 100 07/01/19 06:00 110/36 07/01/19 06:00 95 14 110/35 (60) 100 07/01/19 05:45 96 15 94/44 (61) 94 07/01/19 05:30 93 13 105/45 (65) 100 07/01/19 05:15 95 16 113/38 (63) 100 07/01/19 05:00 99 17 98/40 (59) 95 07/01/19 05:00 98/40 07/01/19 04:45 88 17 119/46 (70) 95 07/01/19 04:30 104 17 119/46 (70) 95 07/01/19 04:15 109 16 146/132 (137) 87 07/01/19 04:00 139/44 07/01/19 04:00 Nasal Cannula 2.0 07/01/19 04:00 97.8 98 139/44 (75) 84 07/01/19 03:45 93 119/76 (90) 94 07/01/19 03:30 91 105/48 (67) 100 07/01/19 03:15 105 125/69 (87) 100 07/01/19 03:00 119/58 07/01/19 03:00 97 14 119/58 (78) 100 07/01/19 02:30 94 106/43 (64) 100 07/01/19 02:00 94 109/44 (65) 100 07/01/19 02:00 113/40 07/01/19 01:00 96/43 07/01/19 00:45 87 92/41 (58) 100 07/01/19 00:30 89 94/41 (58) 100 07/01/19 00:15 88 97/42 (60) 100 07/01/19 00:00 Nasal Cannula 2.0 07/01/19 00:00 95/56 07/01/19 00:00 97.8 89 93/38 (56) 100 07/01/19 00:00 Nasal Cannula 2.0 06/30/19 23:45 91 101/38 (59) 100 06/30/19 23:15 88 14 94/44 (61) 100 06/30/19 23:00 90/46 06/30/19 23:00 94 12 93/37 (55) 100 06/30/19 22:45 94 12 90/50 (63) 100 06/30/19 22:30 86/46 06/30/19 22:30 97 17 93/42 (59) 93 06/30/19 22:15 89 14 94/40 (58) 06/30/19 22:00 88 13 85/38 (54) 100 06/30/19 21:45 89 13 86/45 (59) 100 06/30/19 21:30 90 13 80/40 (53) 100 06/30/19 21:28 89 13 87/40 (56) 100 06/30/19 21:15 97.4 94 17 86/84 (85) 100 06/30/19 21:00 Nasal Cannula 2.0 06/30/19 20:53 91 14 86/48 (61) 06/30/19 20:00 98.3 91 14 90/49 (63) 100 06/30/19 16:00 97.3 90 16 93/51 (65) 97 Intake and Output 06/30/19 07/01/19 19:00 07:00 Intake Total 1730.0 ml Output Total 240 ml Balance 1490.0 ml IV Total 1730.0 ml Output Urine Total 240 ml Laboratory Tests 06/30/19 20:39: Arterial Blood pH 7.412, Arterial Blood Partial Pressure CO2 28.8L, Arterial Blood Partial Pressure O2 146.9H, Arterial Blood HCO3 17.9*L, Arterial Blood Oxygen Saturation 98.9, Arterial Blood Base Excess -5.7L, Sascha Test Positive 06/30/19 20:50: Ammonia 24 07/01/19 04:00: Ammonia 39H, White Blood Count 18.0H, Red Blood Count 2.46L, Hemoglobin 8.2L, Hematocrit 24.4L, Mean Corpuscular Volume 99, Mean Corpuscular Hemoglobin 33.2H , Mean Corpuscular Hemoglobin Concent 33.0, Red Cell Distribution Width 20.7H, Platelet Count 83L, Mean Platelet Volume 6.5, Neutrophils (%) (Auto) , Lymphocytes (%) (Auto) , Monocytes (%) (Auto) , Eosinophils (%) (Auto) , Basophils (%) (Auto) , Differential Total Cells Counted 100, Neutrophils % ( Manual) 83H, Lymphocytes % (Manual) 7L, Monocytes % (Manual) 8, Eosinophils % ( Manual) 1, Basophils % (Manual) 1, Band Neutrophils 0, Platelet Estimate DecreasedL, Platelet Morphology Normal, Hypochromasia 2+, Anisocytosis 2+, Prothrombin Time 14.5H, Prothromb Time International Ratio 1.4H, Activated Partial Thromboplast Time 33, D-Dimer 13.01H, Sodium Level 147H, Potassium Level 4.6, Chloride Level 115H, Carbon Dioxide Level 20L, Anion Gap 12, Blood Urea Nitrogen 91H, Creatinine 1.8H, Estimat Glomerular Filtration Rate 28.0, Glucose Level 248H, Lactic Acid Level 1.80, Uric Acid 13.9H, Calcium Level 7.7L , Phosphorus Level 5.3H, Ferritin 160, Total Bilirubin 2.6H, Direct Bilirubin 1.5H, Gamma Glutamyl Transpeptidase 152H, Aspartate Amino Transf (AST/SGOT) 29, Alanine Aminotransferase (ALT/SGPT) 14, Alkaline Phosphatase 138H, Lactate Dehydrogenase 257H, Troponin I 0.008, C-Reactive Protein, Quantitative 7.2H, Pro -B-Type Natriuretic Peptide 255H, Total Protein 6.2L, Albumin 2.9L, Globulin 3.3 , Albumin/Globulin Ratio 0.9L 07/01/19 08:24: Arterial Blood pH 7.393, Arterial Blood Partial Pressure CO2 34.2L, Arterial Blood Partial Pressure O2 150.9H, Arterial Blood HCO3 20.4L, Arterial Blood Oxygen Saturation 98.7, Arterial Blood Base Excess -4.0L, Sascha Test Positive Height (Feet): 5 Height (Inches): 3.00 Weight (Pounds): 141 General Appearance: lethargic EENT: normal ENT inspection Neck: supple Cardiovascular: normal rate Respiratory/Chest: decreased breath sounds Abdomen: hypoactive bowel sounds, distended Extremities: non-tender Howard Childers MD Jul 01, 2019 10:07
--- NOTE | 2019-07-01 10:11 | Hematology/Onc Progress Note ---
Assessment/Plan Assessment/Plan Assessment and Recs # 7.7 cm left lobe hepatic mass is concerning for hepatocellular carcinoma, particularly given cirrhosis. A large metastasis is also possible. Consider multiphase hepatic protocol MRI. --> also imaging revealed Right renal hypodensities that are too small to characterize. --> seen by gi and surg --> tumor markers show afp 155, cea 26, ca19.9 1660 --> if afp >200, likely hcc, may still need mri --> at this time, given poor prognosis, would recommend no biopsy --> agree with gi is likely cholangio v hcc v pancreatic with mets --> HOSPICE RECOMMENDED AND [facility] GI # Pancytopenia -- multiple etiologies and in this case is related to cirrhosis --> peripheral smear has been ordered and does not show significant abnormalities --> Medications have been reviewed --> Continue to monitor for improvement, trend cbc --> Hep panel and HIV NEGATIVE --> US abd ordered to r/o cirrhosis and hepatosplenomegaly --> DOES SHOW SPLENOMEGALY AND CIRRHOSIS++ --> reverse isolation if ANC is <2000 --> Give neupogen if ANC <1000 --> Transfuse if hgb <7 --> plt 113-->51-->34k-->61-->66 --> rbc: 2 units 06/26/2019 --> continue on psych meds olanazapine # FTT may need nutrition support --> when off iso may need peg --> abx: ceftriaxone --> alia positive # Coagulopathy - Cirrhosis, ? etiology --> likely will need ffp and vit k if bleeds --> likely to be a chronic issue with cirrhosis # Abd distention, likely ascites --> also r/o COVID-->NEG --> isolation --> s/p para # Dysphagia with ng++ # Dvt ppx scds The timing of this note does not necessarily reflect the time of the patient was seen. Greatly appreciate consultation. Subjective HEENT: Denies: no symptoms, eye pain, blurred vision, tearing, double vision, ear pain, ear discharge, nose pain, nose congestion, throat pain, throat swelling, mouth pain, mouth swelling, other Cardiovascular: Denies: no symptoms, chest pain, edema, irregular heart rate, lightheadedness, palpitations, syncope, other Respiratory: Denies: no symptoms, cough, shortness of breath, SOB with excertion, SOB at rest, sputum, wheezing, other Gastrointestinal/Abdominal: Denies: no symptoms, abdomen distended, abdominal pain, black stools, tarry stools, blood in stool, constipated, diarrhea, difficulty swallowing, nausea, poor appetite, poor fluid intake, rectal bleeding , vomiting, other Genitourinary: Denies: no symptoms, burning, discharge, frequency, flank pain, hematuria, incontinence, pain, urgency, other Neurologic/Psychiatric: Denies: no symptoms, anxiety, depressed, emotional problems, headache, numbness, paresthesia, pre-existing deficit, seizure, tingling, tremors, weakness, other Endocrine: Denies: no symptoms, excessive sweating, flushing, intolerance to cold, intolerance to heat, increased hunger, increased thirst, increased urine, unexplained weight gain, unexplained weight loss, other Hematologic/Lymphatic: Denies: no symptoms, anemia, easy bleeding, easy bruising, adenopathy, other Allergies: Coded Allergies: PENICILLINS (Verified Allergy, Unknown, 06/18/19) Subjective 06/20 no events, no bleeding, tumor markers still pending, imaging noted 06/21 still somewhat confused this am, trying to crawl out of bed, no bleeding or chills 06/22 seen by gi for peg when off iso, no bleeding, plt 118k 06/23 no events, no bleeding, labs noted, cbc reviewed, no night sweats, uncomfortable still 06/24 covid 19 negative, labs reviewed, afebrile, on ceftriaxone 06/26 s/p 2 units rbc, hgb 8.9, stool ob negative, on abx 06/27 plt are low, remains guarded, prognosis is poor, dw gi 06/28 confused, restraints, labs reviewed, nc 2l 06/29 no major changes, remains confused, with restraitns, labs noted 06/30 no events, no bleeding, no f/c, no night sweats, labs noted hgb 8.2, remains agitated Objective Objective Current Medications Medications (Trade) Dose Ordered Sig/Idalia Route PRN Reason Start Time Stop Time Status Last Admin Dose Admin Acetaminophen (Tylenol) 500 mg Q6H PRN ORAL MILD/TEMP 07/01/19 02:45 07/18/19 14:33 Albumin Human 100 ml @ 100 mls/hr ONCE ONCE IV 07/01/19 10:15 07/01/19 11:14 Barium Sulfate (Varibar Honey) 250 ml NOW PRN MC RAD 07/01/19 13:45 07/03/19 13:30 Barium Sulfate (Varibar [place]) 240 ml NOW PRN MC RAD 07/01/19 13:45 07/03/19 13:30 Barium Sulfate (Varibar Pudding) 230 ml NOW PRN RAD 07/01/19 13:45 07/03/19 13:30 Barium Sulfate (Varibar Thin Liquid powder) 148 gm NOW PRN MC RAD 07/01/19 13:45 07/03/19 13:30 Ceftriaxone Sodium 1 gm/ Dextrose 55 ml @ 110 mls/hr Q24H IVPB 07/01/19 19:30 07/07/19 19:29 Dextrose (Dextrose 50%) 25 ml Q30M PRN IV Hypoglycemia 06/30/19 21:45 09/17/19 14:33 Dextrose (Dextrose 50%) 50 ml Q30M PRN IV Hypoglycemia 06/30/19 21:45 09/17/19 09:44 Dextrose/Sodium Chloride 1,000 ml @ 75 mls/hr [id number] IV 06/30/19 22:15 07/30/19 22:14 06/30/19 23:34 Insulin Aspart (NovoLOG) BEFORE MEALS AND HS SUBQ 07/01/19 06:30 09/17/19 11:29 07/01/19 06:15 Lactulose (Cephulac) 20 gm THREE TIMES A DAY NG 07/01/19 09:00 07/26/19 08:59 Midodrine (Pro-Amatine) 10 mg THREE TIMES A DAY NG 07/01/19 09:00 09/25/19 12:59 Naloxone HCl (Narcan) 0.2 mg Q2M PRN IVP respiratory depression 06/30/19 21:45 09/18/19 11:59 Norepinephrine Bitartrate 4 mg/ Dextrose 250 ml @ 0 mls/hr Q24H IV 06/30/19 22:30 07/30/19 22:29 07/01/19 06:47 Pantoprazole (Protonix) 40 mg Q12HR IVP 07/01/19 09:00 07/23/19 08:59 07/01/19 09:11 Last 24 Hour Vital Signs Date Time Temp Pulse Resp B/P (MAP) Pulse Ox O2 Delivery O2 Flow Rate FiO2 07/01/19 10:00 121/74 07/01/19 09:30 95 14 130/65 (86) 100 07/01/19 09:00 95 14 130/65 (86) 100 07/01/19 08:30 102 17 114/51 (72) 100 07/01/19 08:00 102 17 114/51 (72) 100 07/01/19 07:30 89 12 106/41 (62) 100 07/01/19 07:00 97 14 113/46 (68) 100 07/01/19 06:47 102/53 07/01/19 06:45 97 14 118/45 (69) 100 07/01/19 06:30 89 12 102/53 (69) 100 07/01/19 06:15 93 13 117/70 (86) 100 07/01/19 06:15 93 13 117/70 (86) 100 07/01/19 06:00 110/36 07/01/19 06:00 95 14 110/35 (60) 100 07/01/19 05:45 96 15 94/44 (61) 94 07/01/19 05:30 93 13 105/45 (65) 100 07/01/19 05:15 95 16 113/38 (63) 100 07/01/19 05:00 99 17 98/40 (59) 95 07/01/19 05:00 98/40 07/01/19 04:45 88 17 119/46 (70) 95 07/01/19 04:30 104 17 119/46 (70) 95 07/01/19 04:15 109 16 146/132 (137) 87 07/01/19 04:00 139/44 07/01/19 04:00 Nasal Cannula 2.0 07/01/19 04:00 97.8 98 139/44 (75) 84 07/01/19 03:45 93 119/76 (90) 94 07/01/19 03:30 91 105/48 (67) 100 07/01/19 03:15 105 125/69 (87) 100 07/01/19 03:00 119/58 07/01/19 03:00 97 14 119/58 (78) 100 07/01/19 02:30 94 106/43 (64) 100 07/01/19 02:00 94 109/44 (65) 100 07/01/19 02:00 113/40 07/01/19 01:00 96/43 07/01/19 00:45 87 92/41 (58) 100 07/01/19 00:30 89 94/41 (58) 100 07/01/19 00:15 88 97/42 (60) 100 07/01/19 00:00 Nasal Cannula 2.0 07/01/19 00:00 95/56 07/01/19 00:00 97.8 89 93/38 (56) 100 07/01/19 00:00 Nasal Cannula 2.0 06/30/19 23:45 91 101/38 (59) 100 06/30/19 23:15 88 14 94/44 (61) 100 06/30/19 23:00 90/46 06/30/19 23:00 94 12 93/37 (55) 100 06/30/19 22:45 94 12 90/50 (63) 100 06/30/19 22:30 86/46 06/30/19 22:30 97 17 93/42 (59) 93 06/30/19 22:15 89 14 94/40 (58) 06/30/19 22:00 88 13 85/38 (54) 100 06/30/19 21:45 89 13 86/45 (59) 100 06/30/19 21:30 90 13 80/40 (53) 100 06/30/19 21:28 89 13 87/40 (56) 100 06/30/19 21:15 97.4 94 17 86/84 (85) 100 06/30/19 21:00 Nasal Cannula 2.0 06/30/19 20:53 91 14 86/48 (61) 06/30/19 20:00 98.3 91 14 90/49 (63) 100 06/30/19 16:00 97.3 90 16 93/51 (65) 97 06/30/19 09:00 Nasal Cannula 2.0 06/30/19 08:00 92 06/30/19 08:00 97.9 92 18 98/58 (71) 99 06/30/19 06:13 114 124/56 06/30/19 04:00 125 06/30/19 04:00 96.8 109 19 112/59 (76) 97 06/30/19 00:00 116 06/30/19 00:00 97.2 115 19 110/63 (79) 98 06/29/19 22:00 112 98/58 06/29/19 21:00 Nasal Cannula 2.0 06/29/19 20:00 96.9 112 20 98/58 (71) 99 06/29/19 20:00 117 06/29/19 16:00 123 06/29/19 16:00 97.2 104 20 113/66 (82) 100 06/29/19 14:00 97 106/56 06/29/19 12:00 97 06/29/19 12:00 96.8 102 19 106/56 (73) 98 Intake and Output 06/30/19 07/01/19 19:00 07:00 Intake Total 1805.0 ml Output Total 240 ml Balance 1565.0 ml IV Total 1805.0 ml Output Urine Total 240 ml Labs Test 06/28/19 10:25 06/29/19 09:15 06/30/19 05:39 06/30/19 20:39 Phosphorus Level 2.7 MG/DL (2.5-4.9) HIV (1&2) Antibody Rapid Negative (NEGATIVE) White Blood Count 15.0 K/UL (4.8-10.8) 15.0 K/UL (4.8-10.8) Red Blood Count 2.91 M/UL (4.20-5.40) 2.21 M/UL (4.20-5.40) Hemoglobin 9.6 G/DL (12.0-16.0) 9.9 G/DL (12.0-16.0) Hematocrit 28.2 % (37.0-47.0) 22.4 % (37.0-47.0) Mean Corpuscular Volume 97 FL (80-99) 101 FL (80-99) Mean Corpuscular Hemoglobin 33.0 PG (27.0-31.0) 44.7 PG (27.0-31.0) Mean Corpuscular Hemoglobin Concent 34.1 G/DL (32.0-36.0) 44.3 G/DL (32.0-36.0) Red Cell Distribution Width 17.7 % (11.6-14.8) 22.2 % (11.6-14.8) Platelet Count 61 K/UL (150-450) 66 K/UL (150-450) Mean Platelet Volume 6.8 FL (6.5-10.1) 6.2 FL (6.5-10.1) Neutrophils (%) (Auto) % (45.0-75.0) % (45.0-75.0) Lymphocytes (%) (Auto) % (20.0-45.0) % (20.0-45.0) Monocytes (%) (Auto) % (1.0-10.0) % (1.0-10.0) Eosinophils (%) (Auto) % (0.0-3.0) % (0.0-3.0) Basophils (%) (Auto) % (0.0-2.0) % (0.0-2.0) Differential Total Cells Counted 100 Neutrophils % (Manual) 84 % (45-75) 83 % (45-75) Lymphocytes % (Manual) 5 % (20-45) 8 % (20-45) Monocytes % (Manual) 10 % (1-10) 7 % (1-10) Eosinophils % (Manual) 1 % (0-3) 2 % (0-3) Basophils % (Manual) 0 % (0-2) 0 % (0-2) Band Neutrophils 0 % (0-8) 0 % (0-8) Platelet Estimate Decreased Decreased Platelet Morphology Normal Normal Hypochromasia 2+ 2+ Anisocytosis 2+ 2+ Sodium Level 146 MMOL/L (136-145) 148 MMOL/L (136-145) Potassium Level 4.8 MMOL/L (3.5-5.1) 5.0 MMOL/L (3.5-5.1) Chloride Level 116 MMOL/L (98-107) 116 MMOL/L (98-107) Carbon Dioxide Level 21 MMOL/L (21-32) 19 MMOL/L (21-32) Anion Gap 9 mmol/L (5-15) 13 mmol/L (5-15) Blood Urea Nitrogen 68 mg/dL (7-18) 82 mg/dL (7-18) Creatinine 1.2 MG/DL (0.55-1.30) 1.4 MG/DL (0.55-1.30) Estimat Glomerular Filtration Rate 44.8 mL/min (>60) 37.5 mL/min (>60) Glucose Level 149 MG/DL (74-106) 167 MG/DL (74-106) Calcium Level 8.1 MG/DL (8.5-10.1) 8.3 MG/DL (8.5-10.1) Macrocytosis 1+ Total Bilirubin 2.7 MG/DL (0.2-1.0) Direct Bilirubin 1.6 MG/DL (0.0-0.3) Aspartate Amino Transf (AST/SGOT) 38 U/L (15-37) Alanine Aminotransferase (ALT/SGPT) 15 U/L (12-78) Alkaline Phosphatase 159 U/L (46-116) Total Protein 6.3 G/DL (6.4-8.2) Albumin 2.5 G/DL (3.4-5.0) Globulin 3.8 g/dL Albumin/Globulin Ratio 0.7 (1.0-2.7) Arterial Blood pH 7.412 (7.350-7.450) Arterial Blood Partial Pressure CO2 28.8 mmHg (35.0-45.0) Arterial Blood Partial Pressure O2 146.9 mmHg (75.0-100.0) Arterial Blood HCO3 17.9 mmol/L (22.0-26.0) Arterial Blood Oxygen Saturation 98.9 % (95-100) Arterial Blood Base Excess -5.7 (-2-2) Sascha Test Positive Test 06/30/19 20:50 07/01/19 04:00 07/01/19 08:24 Ammonia 24 umol/L (11-32) 39 umol/L (11-32) White Blood Count 18.0 K/UL (4.8-10.8) Red Blood Count 2.46 M/UL (4.20-5.40) Hemoglobin 8.2 G/DL (12.0-16.0) Hematocrit 24.4 % (37.0-47.0) Mean Corpuscular Volume 99 FL (80-99) Mean Corpuscular Hemoglobin 33.2 PG (27.0-31.0) Mean Corpuscular Hemoglobin Concent 33.0 G/DL (32.0-36.0) Red Cell Distribution Width 20.7 % (11.6-14.8) Platelet Count 83 K/UL (150-450) Mean Platelet Volume 6.5 FL (6.5-10.1) Neutrophils (%) (Auto) % (45.0-75.0) Lymphocytes (%) (Auto) % (20.0-45.0) Monocytes (%) (Auto) % (1.0-10.0) Eosinophils (%) (Auto) % (0.0-3.0) Basophils (%) (Auto) % (0.0-2.0) Differential Total Cells Counted 100 Neutrophils % (Manual) 83 % (45-75) Lymphocytes % (Manual) 7 % (20-45) Monocytes % (Manual) 8 % (1-10) Eosinophils % (Manual) 1 % (0-3) Basophils % (Manual) 1 % (0-2) Band Neutrophils 0 % (0-8) Platelet Estimate Decreased Platelet Morphology Normal Hypochromasia 2+ Anisocytosis 2+ Prothrombin Time 14.5 SEC (9.30-11.50) Prothromb Time International Ratio 1.4 (0.9-1.1) Activated Partial Thromboplast Time 33 SEC (23-33) D-Dimer 13.01 mg/L FEU (0.00-0.49) Sodium Level 147 MMOL/L (136-145) Potassium Level 4.6 MMOL/L (3.5-5.1) Chloride Level 115 MMOL/L (98-107) Carbon Dioxide Level 20 MMOL/L (21-32) Anion Gap 12 mmol/L (5-15) Blood Urea Nitrogen 91 mg/dL (7-18) Creatinine 1.8 MG/DL (0.55-1.30) Estimat Glomerular Filtration Rate 28.0 mL/min (>60) Glucose Level 248 MG/DL (74-106) Lactic Acid Level 1.80 mmol/L (0.4-2.0) Uric Acid 13.9 MG/DL (2.6-7.2) Calcium Level 7.7 MG/DL (8.5-10.1) Phosphorus Level 5.3 MG/DL (2.5-4.9) Ferritin 160 NG/ML (8-388) Total Bilirubin 2.6 MG/DL (0.2-1.0) Direct Bilirubin 1.5 MG/DL (0.0-0.3) Gamma Glutamyl Transpeptidase 152 U/L (5-85) Aspartate Amino Transf (AST/SGOT) 29 U/L (15-37) Alanine Aminotransferase (ALT/SGPT) 14 U/L (12-78) Alkaline Phosphatase 138 U/L (46-116) Lactate Dehydrogenase 257 U/L (81-234) Troponin I 0.008 ng/mL (0.000-0.056) C-Reactive Protein, Quantitative 7.2 mg/dL (0.00-0.90) Pro-B-Type Natriuretic Peptide 255 pg/mL (0-125) Total Protein 6.2 G/DL (6.4-8.2) Albumin 2.9 G/DL (3.4-5.0) Globulin 3.3 g/dL Albumin/Globulin Ratio 0.9 (1.0-2.7) Arterial Blood pH 7.393 (7.350-7.450) Arterial Blood Partial Pressure CO2 34.2 mmHg (35.0-45.0) Arterial Blood Partial Pressure O2 150.9 mmHg (75.0-100.0) Arterial Blood HCO3 20.4 mmol/L (22.0-26.0) Arterial Blood Oxygen Saturation 98.7 % (95-100) Arterial Blood Base Excess -4.0 (-2-2) Sascha Test Positive Height (Feet): 5 Height (Inches): 3.00 Weight (Pounds): 141 Objective Physical Exam: Vitals: reviewed General: NAD HEENT: nc, at, NG+ Neck: supple Chest: clear breath sounds bilaterally, nc+ Cardiovascular: RRR, no s3, s4 Abdomen: soft, nontender, nd Extremities: no cce, normal range of motion Neuro: alert and oriented : alberto+ Cristobal Staples MD Jul 01, 2019 10:11
--- NOTE | 2019-07-01 10:29 | NUR ---
NURSE NOTES: Dr Nicolas called to report that the NGT is in good position. Will administer PO medications via NGT at this time. Obtained telephone consent for ultrasound guided paracentesis from Anmol Lopez, patient's son.
--- NOTE | 2019-07-01 10:35 | Pulmonology Progress Note ---
Assessment/Plan Assessment/Plan IMPRESSION: 1. Probable metastatic pulmonary disease. 2. Negative COVID-19. 3. Hepatocellular mass. Likely carcinoma 4. Schizophrenia. 5. Diabetes mellitus. 6. Anemia; now corrected DISCUSSION: Continue low flow O2 prn CXR no change; looks clear Discussed with Gastroenterology. Repeat COVID 19 negative Agree with hospice Patient transferred to ICU overnight On Levophed drip Encourage heme/PMD to discuss prognosis with family Trip Martines M.D. Subjective Interval Events: Transferred to ICU overnight; now on Levophed; awake Constitutional: Reports: no symptoms HEENT: Repors: no symptoms Respiratory: Reports: no symptoms Cardiovascular: Reports: no symptoms Allergies: Coded Allergies: PENICILLINS (Verified Allergy, Unknown, 06/18/19) Objective Last 24 Hour Vital Signs Date Time Temp Pulse Resp B/P (MAP) Pulse Ox O2 Delivery O2 Flow Rate FiO2 07/01/19 10:00 121/74 07/01/19 09:30 95 14 130/65 (86) 100 07/01/19 09:00 95 14 130/65 (86) 100 07/01/19 08:30 102 17 114/51 (72) 100 07/01/19 08:00 102 17 114/51 (72) 100 07/01/19 07:30 89 12 106/41 (62) 100 07/01/19 07:00 97 14 113/46 (68) 100 07/01/19 06:47 102/53 07/01/19 06:45 97 14 118/45 (69) 100 07/01/19 06:30 89 12 102/53 (69) 100 07/01/19 06:15 93 13 117/70 (86) 100 07/01/19 06:15 93 13 117/70 (86) 100 07/01/19 06:00 110/36 07/01/19 06:00 95 14 110/35 (60) 100 07/01/19 05:45 96 15 94/44 (61) 94 07/01/19 05:30 93 13 105/45 (65) 100 07/01/19 05:15 95 16 113/38 (63) 100 07/01/19 05:00 99 17 98/40 (59) 95 07/01/19 05:00 98/40 07/01/19 04:45 88 17 119/46 (70) 95 07/01/19 04:30 104 17 119/46 (70) 95 07/01/19 04:15 109 16 146/132 (137) 87 07/01/19 04:00 139/44 07/01/19 04:00 Nasal Cannula 2.0 07/01/19 04:00 97.8 98 139/44 (75) 84 07/01/19 03:45 93 119/76 (90) 94 07/01/19 03:30 91 105/48 (67) 100 07/01/19 03:15 105 125/69 (87) 100 07/01/19 03:00 119/58 07/01/19 03:00 97 14 119/58 (78) 100 07/01/19 02:30 94 106/43 (64) 100 07/01/19 02:00 94 109/44 (65) 100 07/01/19 02:00 113/40 07/01/19 01:00 96/43 07/01/19 00:45 87 92/41 (58) 100 07/01/19 00:30 89 94/41 (58) 100 07/01/19 00:15 88 97/42 (60) 100 07/01/19 00:00 Nasal Cannula 2.0 07/01/19 00:00 95/56 07/01/19 00:00 97.8 89 93/38 (56) 100 07/01/19 00:00 Nasal Cannula 2.0 06/30/19 23:45 91 101/38 (59) 100 06/30/19 23:15 88 14 94/44 (61) 100 06/30/19 23:00 90/46 06/30/19 23:00 94 12 93/37 (55) 100 06/30/19 22:45 94 12 90/50 (63) 100 06/30/19 22:30 86/46 06/30/19 22:30 97 17 93/42 (59) 93 06/30/19 22:15 89 14 94/40 (58) 06/30/19 22:00 88 13 85/38 (54) 100 06/30/19 21:45 89 13 86/45 (59) 100 06/30/19 21:30 90 13 80/40 (53) 100 06/30/19 21:28 89 13 87/40 (56) 100 06/30/19 21:15 97.4 94 17 86/84 (85) 100 06/30/19 21:00 Nasal Cannula 2.0 06/30/19 20:53 91 14 86/48 (61) 06/30/19 20:00 98.3 91 14 90/49 (63) 100 06/30/19 16:00 97.3 90 16 93/51 (65) 97 Intake and Output 06/30/19 07/01/19 19:00 07:00 Intake Total 1805.0 ml Output Total 240 ml Balance 1565.0 ml IV Total 1805.0 ml Output Urine Total 240 ml General Appearance: no acute distress HEENT: normocephalic Respiratory/Chest: chest wall non-tender Cardiovascular: normal peripheral pulses Abdomen: normal bowel sounds Laboratory Tests 06/30/19 20:39: Arterial Blood pH 7.412, Arterial Blood Partial Pressure CO2 28.8L, Arterial Blood Partial Pressure O2 146.9H, Arterial Blood HCO3 17.9*L, Arterial Blood Oxygen Saturation 98.9, Arterial Blood Base Excess -5.7L, Sascha Test Positive 06/30/19 20:50: Ammonia 24 07/01/19 04:00: Ammonia 39H, White Blood Count 18.0H, Red Blood Count 2.46L, Hemoglobin 8.2L, Hematocrit 24.4L, Mean Corpuscular Volume 99, Mean Corpuscular Hemoglobin 33.2H , Mean Corpuscular Hemoglobin Concent 33.0, Red Cell Distribution Width 20.7H, Platelet Count 83L, Mean Platelet Volume 6.5, Neutrophils (%) (Auto) , Lymphocytes (%) (Auto) , Monocytes (%) (Auto) , Eosinophils (%) (Auto) , Basophils (%) (Auto) , Differential Total Cells Counted 100, Neutrophils % ( Manual) 83H, Lymphocytes % (Manual) 7L, Monocytes % (Manual) 8, Eosinophils % ( Manual) 1, Basophils % (Manual) 1, Band Neutrophils 0, Platelet Estimate DecreasedL, Platelet Morphology Normal, Hypochromasia 2+, Anisocytosis 2+, Prothrombin Time 14.5H, Prothromb Time International Ratio 1.4H, Activated Partial Thromboplast Time 33, D-Dimer 13.01H, Sodium Level 147H, Potassium Level 4.6, Chloride Level 115H, Carbon Dioxide Level 20L, Anion Gap 12, Blood Urea Nitrogen 91H, Creatinine 1.8H, Estimat Glomerular Filtration Rate 28.0, Glucose Level 248H, Lactic Acid Level 1.80, Uric Acid 13.9H, Calcium Level 7.7L , Phosphorus Level 5.3H, Ferritin 160, Total Bilirubin 2.6H, Direct Bilirubin 1.5H, Gamma Glutamyl Transpeptidase 152H, Aspartate Amino Transf (AST/SGOT) 29, Alanine Aminotransferase (ALT/SGPT) 14, Alkaline Phosphatase 138H, Lactate Dehydrogenase 257H, Troponin I 0.008, C-Reactive Protein, Quantitative 7.2H, Pro -B-Type Natriuretic Peptide 255H, Total Protein 6.2L, Albumin 2.9L, Globulin 3.3 , Albumin/Globulin Ratio 0.9L 07/01/19 08:24: Arterial Blood pH 7.393, Arterial Blood Partial Pressure CO2 34.2L, Arterial Blood Partial Pressure O2 150.9H, Arterial Blood HCO3 20.4L, Arterial Blood Oxygen Saturation 98.7, Arterial Blood Base Excess -4.0L, Sascha Test Positive Current Medications Medications (Trade) Dose Ordered Sig/Idalia Route PRN Reason Start Time Stop Time Status Last Admin Dose Admin Acetaminophen (Tylenol) 500 mg Q6H PRN ORAL MILD/TEMP 07/01/19 02:45 07/18/19 14:33 Albumin Human 100 ml @ 100 mls/hr ONCE ONCE IV 07/01/19 10:15 07/01/19 11:14 Barium Sulfate (Varibar Honey) 250 ml NOW PRN MC RAD 07/01/19 13:45 07/03/19 13:30 Barium Sulfate (Varibar [place]) 240 ml NOW PRN MC RAD 07/01/19 13:45 07/03/19 13:30 Barium Sulfate (Varibar Pudding) 230 ml NOW PRN MC RAD 07/01/19 13:45 07/03/19 13:30 Barium Sulfate (Varibar Thin Liquid powder) 148 gm NOW PRN MC RAD 07/01/19 13:45 07/03/19 13:30 Ceftriaxone Sodium 1 gm/ Dextrose 55 ml @ 110 mls/hr Q24H IVPB 07/01/19 19:30 07/07/19 19:29 Dextrose (Dextrose 50%) 25 ml Q30M PRN IV Hypoglycemia 06/30/19 21:45 09/17/19 14:33 Dextrose (Dextrose 50%) 50 ml Q30M PRN IV Hypoglycemia 06/30/19 21:45 09/17/19 09:44 Dextrose/Sodium Chloride 1,000 ml @ 75 mls/hr [id number] IV 06/30/19 22:15 07/30/19 22:14 06/30/19 23:34 Insulin Aspart (NovoLOG) BEFORE MEALS AND HS SUBQ 07/01/19 06:30 09/17/19 11:29 07/01/19 06:15 Lactulose (Cephulac) 20 gm THREE TIMES A DAY NG 07/01/19 09:00 07/26/19 08:59 Midodrine (Pro-Amatine) 10 mg THREE TIMES A DAY NG 07/01/19 09:00 09/25/19 12:59 Naloxone HCl (Narcan) 0.2 mg Q2M PRN IVP respiratory depression 06/30/19 21:45 09/18/19 11:59 Norepinephrine Bitartrate 4 mg/ Dextrose 250 ml @ 0 mls/hr Q24H IV 06/30/19 22:30 07/30/19 22:29 07/01/19 06:47 Pantoprazole (Protonix) 40 mg Q12HR IVP 07/01/19 09:00 07/23/19 08:59 07/01/19 09:11 Trip Martines MD Jul 01, 2019 10:35
[2019-07-01] MEDS: Lactulose 20gm/30ml UDC NG SCH ×3 (10:43→17:44)
--- NOTE | 2019-07-01 11:02 | Pre-Procedure Note/Attestation ---
Pre-Procedure Note/Attestation Complete Prior to Procedure Planned Procedure: not applicable Procedure Narrative: paracentesis Indications for Procedure Pre-Operative Diagnosis: ascites Attestation I attest that I discussed the nature of the procedure; its benefits; risks and complications; and alternatives (and the risks and benefits of such alternatives ), prior to the procedure, with the patient (or the patient's legal roofing sales representative). 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 I attest that I re-evaluated the patient just prior to the surgery and that there has been no change in the patient's H&P, except as documented below: Discussed by phone with pt's. Taras Lambert MD Jul 01, 2019 11:02
[2019-07-01] MEDS: D5NS 1,000 ML IV SCH (11:17)
--- NOTE | 2019-07-01 11:27 | Diagnostic Imaging Report ---
Indication: Post nasogastric tube placement Technique: Supine view of the abdomen Comparison: 06/26/2019 Findings: Interim placement of a nasogastric tube, tip of which projects at the expected level of the gastric antrum. Moderate gas is seen in upper limits of normal caliber small bowel. Central location of small bowel loops indicates ascites. Calcified presumed fibroid is seen in the pelvis Impression: Satisfactory nasogastric tube placement. This finding was previously reported to charge nurse Sameera in the ICU back space Other findings as noted
--- NOTE | 2019-07-01 12:00 | NUR ---
NURSE NOTES: Patient vital signs stable at this time. Blood pressure now 137/73. Levophed turned off. Patient confused to place, purpose and time. patient alert to name. Patient has history of liver cancer with high ammonia level at this time. Patient has 2L nasal cannula at this time with no sign of respiratory distress. RR 13 and SpO2 100%. Patient showing sinus rhythm on the security monitor at this time. Right internal jugular central line patent, asymptomatic, and running D5 normal saline at 75mL/hr. Patient has dominguez for urine retention with dark korin urine noted. Abdomen remains distended, round, tight. paracentesis scheduled. Will continue to turn patient every two hours and as needed. Patient bed in low position with bed alarm on and call light in reach at this time. Will continue to monitor. Oral care and repositioning done at this time.
--- NOTE | 2019-07-01 13:14 | Nephrology Progress Note ---
Assessment/Plan Problem List: (1) LEANDRO (acute kidney injury) Assessment: Serum creatinine was up to 1.9 now back to 1.2 (2) Hyperkalemia (3) Liver cirrhosis (4) Liver mass (5) Anemia Assessment - LEANDRO , serum creatinine chapincito to 1.6, likely multifactorial, due to underlying liver disease, antibiotics, low blood pressure. - Hyperkalemia - Hypoalbuminemia - Cirrhosis, ? etiology - Large liver mass, suspect CA - poor Px - lung nodules - abd distention, likely ascites - r/o COVID -FTT -Anemia -UTI -DM -gallstones Plan Patient in ICU now after developed hypotension and became severely lethargic on psych medications Psych medication is now stopped renal parameters somewhat worsened Start allopurinol NG tube feeding IV Protonix Antibiotics per ID Monitor renal parameters Midodrine for low blood pressure patient transfused June 25 Hydration as needed Neal catheter Avoid nephrotoxics Follow-up with renal parameters Urine studies Per orders Poor prognosis-remains full code Subjective ROS Limited/Unobtainable: No Constitutional: Reports: malaise, weakness Objective Objective Last 24 Hour Vital Signs Date Time Temp Pulse Resp B/P (MAP) Pulse Ox O2 Delivery O2 Flow Rate FiO2 07/01/19 11:30 97.7 112 20 126/71 (89) 100 07/01/19 11:20 141/53 07/01/19 11:00 136/58 07/01/19 11:00 108 17 134/56 (82) 100 07/01/19 10:30 104 14 121/67 (85) 100 07/01/19 10:00 121/74 07/01/19 10:00 104 15 121/74 (90) 100 07/01/19 09:30 95 14 130/65 (86) 100 07/01/19 09:00 95 14 130/65 (86) 100 07/01/19 09:00 121/74 07/01/19 08:30 102 17 114/51 (72) 100 07/01/19 08:00 130/65 07/01/19 08:00 97.6 07/01/19 08:00 102 17 114/51 (72) 100 07/01/19 07:30 89 12 106/41 (62) 100 07/01/19 07:00 120/36 07/01/19 07:00 97 14 113/46 (68) 100 07/01/19 06:47 102/53 07/01/19 06:45 97 14 118/45 (69) 100 07/01/19 06:30 89 12 102/53 (69) 100 07/01/19 06:15 93 13 117/70 (86) 100 07/01/19 06:15 93 13 117/70 (86) 100 07/01/19 06:00 110/36 07/01/19 06:00 95 14 110/35 (60) 100 07/01/19 05:45 96 15 94/44 (61) 94 07/01/19 05:30 93 13 105/45 (65) 100 07/01/19 05:15 95 16 113/38 (63) 100 07/01/19 05:00 99 17 98/40 (59) 95 07/01/19 05:00 98/40 07/01/19 04:45 88 17 119/46 (70) 95 07/01/19 04:30 104 17 119/46 (70) 95 07/01/19 04:15 109 16 146/132 (137) 87 07/01/19 04:00 139/44 07/01/19 04:00 Nasal Cannula 2.0 07/01/19 04:00 97.8 98 139/44 (75) 84 07/01/19 03:45 93 119/76 (90) 94 07/01/19 03:30 91 105/48 (67) 100 07/01/19 03:15 105 125/69 (87) 100 07/01/19 03:00 119/58 07/01/19 03:00 97 14 119/58 (78) 100 07/01/19 02:30 94 106/43 (64) 100 07/01/19 02:00 94 109/44 (65) 100 07/01/19 02:00 113/40 07/01/19 01:00 96/43 07/01/19 00:45 87 92/41 (58) 100 07/01/19 00:30 89 94/41 (58) 100 07/01/19 00:15 88 97/42 (60) 100 07/01/19 00:00 Nasal Cannula 2.0 07/01/19 00:00 95/56 07/01/19 00:00 97.8 89 93/38 (56) 100 4/9/20 00:00 Nasal Cannula 2.0 06/30/19 23:45 91 101/38 (59) 100 06/30/19 23:15 88 14 94/44 (61) 100 06/30/19 23:00 90/46 06/30/19 23:00 94 12 93/37 (55) 100 06/30/19 22:45 94 12 90/50 (63) 100 06/30/19 22:30 86/46 06/30/19 22:30 97 17 93/42 (59) 93 06/30/19 22:15 89 14 94/40 (58) 06/30/19 22:00 88 13 85/38 (54) 100 06/30/19 21:45 89 13 86/45 (59) 100 06/30/19 21:30 90 13 80/40 (53) 100 06/30/19 21:28 89 13 87/40 (56) 100 06/30/19 21:15 97.4 94 17 86/84 (85) 100 06/30/19 21:00 Nasal Cannula 2.0 06/30/19 20:53 91 14 86/48 (61) 06/30/19 20:00 98.3 91 14 90/49 (63) 100 06/30/19 16:00 97.3 90 16 93/51 (65) 97 Intake and Output 06/30/19 07/01/19 19:00 07:00 Intake Total 1810.625 ml Output Total 240 ml Balance 1570.625 ml IV Total 1810.625 ml Output Urine Total 240 ml Laboratory Tests 06/30/19 20:39: Arterial Blood pH 7.412, Arterial Blood Partial Pressure CO2 28.8L, Arterial Blood Partial Pressure O2 146.9H, Arterial Blood HCO3 17.9*L, Arterial Blood Oxygen Saturation 98.9, Arterial Blood Base Excess -5.7L, Sascha Test Positive 06/30/19 20:50: Ammonia 24 07/01/19 04:00: Ammonia 39H, White Blood Count 18.0H, Red Blood Count 2.46L, Hemoglobin 8.2L, Hematocrit 24.4L, Mean Corpuscular Volume 99, Mean Corpuscular Hemoglobin 33.2H , Mean Corpuscular Hemoglobin Concent 33.0, Red Cell Distribution Width 20.7H, Platelet Count 83L, Mean Platelet Volume 6.5, Neutrophils (%) (Auto) , Lymphocytes (%) (Auto) , Monocytes (%) (Auto) , Eosinophils (%) (Auto) , Basophils (%) (Auto) , Differential Total Cells Counted 100, Neutrophils % ( Manual) 83H, Lymphocytes % (Manual) 7L, Monocytes % (Manual) 8, Eosinophils % ( Manual) 1, Basophils % (Manual) 1, Band Neutrophils 0, Platelet Estimate DecreasedL, Platelet Morphology Normal, Hypochromasia 2+, Anisocytosis 2+, Prothrombin Time 14.5H, Prothromb Time International Ratio 1.4H, Activated Partial Thromboplast Time 33, D-Dimer 13.01H, Sodium Level 147H, Potassium Level 4.6, Chloride Level 115H, Carbon Dioxide Level 20L, Anion Gap 12, Blood Urea Nitrogen 91H, Creatinine 1.8H, Estimat Glomerular Filtration Rate 28.0, Glucose Level 248H, Lactic Acid Level 1.80, Uric Acid 13.9H, Calcium Level 7.7L , Phosphorus Level 5.3H, Ferritin 160, Total Bilirubin 2.6H, Direct Bilirubin 1.5H, Gamma Glutamyl Transpeptidase 152H, Aspartate Amino Transf (AST/SGOT) 29, Alanine Aminotransferase (ALT/SGPT) 14, Alkaline Phosphatase 138H, Lactate Dehydrogenase 257H, Troponin I 0.008, C-Reactive Protein, Quantitative 7.2H, Pro -B-Type Natriuretic Peptide 255H, Total Protein 6.2L, Albumin 2.9L, Globulin 3.3 , Albumin/Globulin Ratio 0.9L 07/01/19 08:24: Arterial Blood pH 7.393, Arterial Blood Partial Pressure CO2 34.2L, Arterial Blood Partial Pressure O2 150.9H, Arterial Blood HCO3 20.4L, Arterial Blood Oxygen Saturation 98.7, Arterial Blood Base Excess -4.0L, Sascha Test Positive Height (Feet): 5 Height (Inches): 3.00 Weight (Pounds): 141 General Appearance: no apparent distress EENT: other - Has NG tube now Cardiovascular: tachycardia Respiratory/Chest: decreased breath sounds Abdomen: distended Alex Aguilar MD Jul 01, 2019 13:14
--- NOTE | 2019-07-01 13:28 | NUR ---
NURSE NOTES: Dr Staples called to report that he spoke with the patient's son and the son agreed to make the patient DNR/DNI. Called Anmol Lopez, the patient's son, and confirmed his wishes to change the code status to DNR/DNI. HAL prepared.
--- NOTE | 2019-07-01 13:30 | NUR ---
NURSE NOTES: Blood pressure dropped during paracentesis. levophed restarted at 2mcg/min. Will continue to monitor and titrate per protocol.
--- NOTE | 2019-07-01 13:35 | NUR ---
NURSE NOTES: Patient receiving paracentesis at this time. Output noted to be sanguinous. Requested for repeat CBC post paracentesis. Received telephone order from Dr Staples. Order read back and placed.
[2019-07-01] MEDS ORDERED: Varibar Nectar 240ml MC PRN ×2 (13:45)
[2019-07-01] MEDS ORDERED: Varibar Thin Liquid powder 148gm MC PRN ×2 (13:45)
[2019-07-01] MEDS ORDERED: Varibar Honey 250ml MC PRN ×2 (13:45)
[2019-07-01] MEDS ORDERED: Varibar Pudding 230ml MC PRN ×2 (13:45)
[2019-07-01] MEDS: D5 1/4NS 1000ml 1,000 ML IV SCH (14:09)
--- NOTE | 2019-07-01 14:13 | Brief Operative Note ---
Immediate Post Operative Note Operative Note Pre-op Diagnosis: ascites Procedure: Paracentesis Post-op Diagnosis: same as pre-op Findings: consistent w/pre-op dx studies Surgeon: Azucena Nicolas Anesthesia: local Specimen: none Complications: none Fluids: none Implant(s) used?: No Taras Nicolas MD Jul 01, 2019 14:13
--- NOTE | 2019-07-01 14:42 | NUR ---
CASE MANAGEMENT:REVIEW 07/01/2019 SI: PNA. HYPOXIA. DEHYDRATION HEPATOCELLULAR CARCINOMA. COVID 19 NOT DETECTED VS: T 97.7 HR 112 RR 20 B/P 126/71 SATS 100% ON 2L/NC LABS: WBC 18 HGB 8.2 HCT 24.4 NA 147 CL 115 CO2 20 BUN 91 CR 1.8 GLU 248 URIC ACID 13.9 CA 7.7 PHOS 5.3 TBILI 2.6 DBILI 1.5 GGT 152 ALP 138 AMMONIA 39 L. DEHYDROGENASE 257 CRP 7.2 BNP 255 IS: ZYPREXA PO BID IV PROTONIX QD MIDODRINE PO TID LACTULOSE PO TID INDERAL PO Q8HRS SSI SQ AC+HS : ICU STATUS DCP: FROM [facility] CONV PLAN: Operative Note Pre-op Diagnosis: ascites Procedure: Paracentesis
--- NOTE | 2019-07-01 14:42 | NUR ---
DIAL EQUIPMENT ENGINEER NOTE Pt was transferred to ICU on 06/30/2019. NATASHA spoke w/ pt's son/primary decision maker Anmolcollin Lopez [phone]. Anmol reports he spoke w/ MD and changed the code status to DNR & DNI. Anmol confirmed [facility]. Pt has a daughter residing in [facility]. Anmol did not have any questions/concerns at this time. SW to F/U as needed.
--- NOTE | 2019-07-01 14:46 | Diagnostic Imaging Report ---
Indications: Ascites Technique: Ultrasound used to localize optimal puncture site. Sterile prepping and draping right lower quadrant. Local anesthesia with 1% lidocaine. Under real-time ultrasound guidance, puncture peritoneal space using paracentesis needle. Stylet removed. Catheter placed to vacuum bottle suction. Total 7 liters of bloody fluid aspirated. Patient tolerated procedure well, without immediate complication. Findings: Followup sonography demonstrates complete resolution of peritoneal fluid. Impression: Successful ultrasound-guided paracentesis, yielding 7 liters of fluid
--- NOTE | 2019-07-01 14:47 | Surgery Progress Note ---
Surgery Progress Note Subjective Symptoms: worse Objective Last 24 Hour Vital Signs Date Time Temp Pulse Resp B/P (MAP) Pulse Ox O2 Delivery O2 Flow Rate FiO2 07/01/19 13:45 93 12 100/42 (61) 100 07/01/19 13:41 89 12 99/50 (66) 100 07/01/19 13:30 98 13 100/30 (53) 100 07/01/19 13:30 99/50 07/01/19 13:15 101 16 91/32 (51) 100 07/01/19 13:00 105 19 121/60 (80) 100 07/01/19 12:30 110 20 133/74 (93) 100 07/01/19 12:00 111 19 137/73 (94) 100 07/01/19 12:00 108 07/01/19 12:00 Nasal Cannula 2.0 07/01/19 11:30 97.7 112 20 126/71 (89) 100 07/01/19 11:20 141/53 07/01/19 11:00 136/58 07/01/19 11:00 108 17 134/56 (82) 100 07/01/19 10:30 104 14 121/67 (85) 100 07/01/19 10:00 121/74 07/01/19 10:00 104 15 121/74 (90) 100 07/01/19 09:30 95 14 130/65 (86) 100 07/01/19 09:00 95 14 130/65 (86) 100 07/01/19 09:00 121/74 07/01/19 08:30 102 17 114/51 (72) 100 07/01/19 08:00 130/65 07/01/19 08:00 Nasal Cannula 2.0 07/01/19 08:00 97.6 07/01/19 08:00 102 17 114/51 (72) 100 07/01/19 08:00 100 07/01/19 07:30 89 12 106/41 (62) 100 07/01/19 07:00 120/36 07/01/19 07:00 97 14 113/46 (68) 100 07/01/19 06:47 102/53 07/01/19 06:45 97 14 118/45 (69) 100 07/01/19 06:30 89 12 102/53 (69) 100 07/01/19 06:15 93 13 117/70 (86) 100 07/01/19 06:15 93 13 117/70 (86) 100 07/01/19 06:00 110/36 07/01/19 06:00 95 14 110/35 (60) 100 07/01/19 05:45 96 15 94/44 (61) 94 07/01/19 05:30 93 13 105/45 (65) 100 07/01/19 05:15 95 16 113/38 (63) 100 07/01/19 05:00 99 17 98/40 (59) 95 07/01/19 05:00 98/40 07/01/19 04:45 88 17 119/46 (70) 95 07/01/19 04:30 104 17 119/46 (70) 95 07/01/19 04:15 109 16 146/132 (137) 87 07/01/19 04:00 139/44 07/01/19 04:00 Nasal Cannula 2.0 07/01/19 04:00 97.8 98 139/44 (75) 84 07/01/19 03:45 93 119/76 (90) 94 07/01/19 03:30 91 105/48 (67) 100 07/01/19 03:15 105 125/69 (87) 100 07/01/19 03:00 119/58 07/01/19 03:00 97 14 119/58 (78) 100 07/01/19 02:30 94 106/43 (64) 100 07/01/19 02:00 94 109/44 (65) 100 07/01/19 02:00 113/40 07/01/19 01:00 96/43 07/01/19 00:45 87 92/41 (58) 100 07/01/19 00:30 89 94/41 (58) 100 07/01/19 00:15 88 97/42 (60) 100 07/01/19 00:00 Nasal Cannula 2.0 07/01/19 00:00 95/56 07/01/19 00:00 97.8 89 93/38 (56) 100 07/01/19 00:00 Nasal Cannula 2.0 06/30/19 23:45 91 101/38 (59) 100 06/30/19 23:15 88 14 94/44 (61) 100 06/30/19 23:00 90/46 06/30/19 23:00 94 12 93/37 (55) 100 06/30/19 22:45 94 12 90/50 (63) 100 06/30/19 22:30 86/46 06/30/19 22:30 97 17 93/42 (59) 93 06/30/19 22:15 89 14 94/40 (58) 06/30/19 22:00 88 13 85/38 (54) 100 06/30/19 21:45 89 13 86/45 (59) 100 06/30/19 21:30 90 13 80/40 (53) 100 06/30/19 21:28 89 13 87/40 (56) 100 06/30/19 21:15 97.4 94 17 86/84 (85) 100 06/30/19 21:00 Nasal Cannula 2.0 06/30/19 20:53 91 14 86/48 (61) 06/30/19 20:00 98.3 91 14 90/49 (63) 100 06/30/19 16:00 97.3 90 16 93/51 (65) 97 I&O Intake and Output 06/30/19 07/01/19 19:00 07:00 Intake Total 1810.625 ml Output Total 240 ml Balance 1570.625 ml IV Total 1810.625 ml Output Urine Total 240 ml Cardiovascular: RSR Respiratory: decreased breath sounds Abdomen: distended, tenderness, decreased bowel sounds Extremities: edema, no cyanosis Laboratory Tests Test 06/30/19 20:39 06/30/19 20:50 07/01/19 04:00 07/01/19 08:24 Arterial Blood pH 7.412 (7.350-7.450) 7.393 (7.350-7.450) Arterial Blood Partial Pressure CO2 28.8 mmHg (35.0-45.0) L 34.2 mmHg (35.0-45.0) L Arterial Blood Partial Pressure O2 146.9 mmHg (75.0-100.0) H 150.9 mmHg (75.0-100.0) H Arterial Blood HCO3 17.9 mmol/L (22.0-26.0) *L 20.4 mmol/L (22.0-26.0) L Arterial Blood Oxygen Saturation 98.9 % (95-100) 98.7 % (95-100) Arterial Blood Base Excess -5.7 (-2-2) L -4.0 (-2-2) L Sascha Test Positive Positive Ammonia 24 umol/L (11-32) 39 umol/L (11-32) H White Blood Count 18.0 K/UL (4.8-10.8) H Red Blood Count 2.46 M/UL (4.20-5.40) L Hemoglobin 8.2 G/DL (12.0-16.0) L Hematocrit 24.4 % (37.0-47.0) L Mean Corpuscular Volume 99 FL (80-99) Mean Corpuscular Hemoglobin 33.2 PG (27.0-31.0) H Mean Corpuscular Hemoglobin Concent 33.0 G/DL (32.0-36.0) Red Cell Distribution Width 20.7 % (11.6-14.8) H Platelet Count 83 K/UL (150-450) L Mean Platelet Volume 6.5 FL (6.5-10.1) Neutrophils (%) (Auto) % (45.0-75.0) Lymphocytes (%) (Auto) % (20.0-45.0) Monocytes (%) (Auto) % (1.0-10.0) Eosinophils (%) (Auto) % (0.0-3.0) Basophils (%) (Auto) % (0.0-2.0) Differential Total Cells Counted 100 Neutrophils % (Manual) 83 % (45-75) H Lymphocytes % (Manual) 7 % (20-45) L Monocytes % (Manual) 8 % (1-10) Eosinophils % (Manual) 1 % (0-3) Basophils % (Manual) 1 % (0-2) Band Neutrophils 0 % (0-8) Platelet Estimate Decreased L Platelet Morphology Normal Hypochromasia 2+ Anisocytosis 2+ Prothrombin Time 14.5 SEC (9.30-11.50) H Prothromb Time International Ratio 1.4 (0.9-1.1) H Activated Partial Thromboplast Time 33 SEC (23-33) D-Dimer 13.01 mg/L FEU (0.00-0.49) H Sodium Level 147 MMOL/L (136-145) H Potassium Level 4.6 MMOL/L (3.5-5.1) Chloride Level 115 MMOL/L (98-107) H Carbon Dioxide Level 20 MMOL/L (21-32) L Anion Gap 12 mmol/L (5-15) Blood Urea Nitrogen 91 mg/dL (7-18) H Creatinine 1.8 MG/DL (0.55-1.30) H Estimat Glomerular Filtration Rate 28.0 mL/min (>60) Glucose Level 248 MG/DL (74-106) H Lactic Acid Level 1.80 mmol/L (0.4-2.0) Uric Acid 13.9 MG/DL (2.6-7.2) H Calcium Level 7.7 MG/DL (8.5-10.1) L Phosphorus Level 5.3 MG/DL (2.5-4.9) H Ferritin 160 NG/ML (8-388) Total Bilirubin 2.6 MG/DL (0.2-1.0) H Direct Bilirubin 1.5 MG/DL (0.0-0.3) H Gamma Glutamyl Transpeptidase 152 U/L (5-85) H Aspartate Amino Transf (AST/SGOT) 29 U/L (15-37) Alanine Aminotransferase (ALT/SGPT) 14 U/L (12-78) Alkaline Phosphatase 138 U/L (46-116) H Lactate Dehydrogenase 257 U/L (81-234) H Troponin I 0.008 ng/mL (0.000-0.056) C-Reactive Protein, Quantitative 7.2 mg/dL (0.00-0.90) H Pro-B-Type Natriuretic Peptide 255 pg/mL (0-125) H Total Protein 6.2 G/DL (6.4-8.2) L Albumin 2.9 G/DL (3.4-5.0) L Globulin 3.3 g/dL Albumin/Globulin Ratio 0.9 (1.0-2.7) L Plan Problems: (1) Abdominal pain Assessment & Plan: [age]-year-old female multiple medical comorbidities presented with abdominal discomfort noted to have abnormal LFTs leukocytosis. CT reviewed liver cirrhotic and there is a mass. Possibly carcinoma likely. HCC. Abdominal exam without peritonitis no acute surgical intervention indicated recommended at this time supportive treatment. Will follow with recommendations thank you tumor markers show afp 155, cea 26, ca19.9 1660 Consider comfort care/hospice can consider biopsy for diagnosis but unfortunately will unlikely help as advanced disease and given differential likely terminal Will follow with recommendations Covid results negative Lower thorax: Unremarkable lung bases. Intraperitoneal space: No free air. Gastrointestinal tract: Unremarkable. No dilation. Bones/joints: Degenerative spine findings and osteopenia. Tubes, lines and devices: Enteric tube with tip and proximal sideport below the gastroesophageal junction. IMPRESSION: 1. Enteric tube with tip and proximal sideport below the gastroesophageal junction. 2. Unremarkable lung bases. 3. No acute abnormality definitively seen. GI placed feeding tube cont feeds as tolerated severe anemia - gi blood loss? transfuse as per heme trend s/p para will monitor exam Thank you Pt presented on admission with multiple skin breakdown. Non-blanching erythema without induration.(L)7cm x (W)9cm . L heel is boggy with non-blanchable erythema(L)5.5cm x (W)4.5cm. R heel is boggy with non-blanchable erythema(L)6cm x (W)5.3cm. Pt did not exhibit any distress to indicate pain when each heel individually palpated. Tx.Plan: Apply Moisture Barrier Paste to Sacrum. Cover with Optifoam drsg. Change every 3 days and prn. Apply Cavilon Skin Barrier to both Heels. Cover each Heel with Optifoam drsg. change every 7 days and prn. Reposition at least every 2hours or as tolerated. Off-load heels with pillow. The liver is cirrhotic. There is evidence of portal hypertension including splenomegaly and gastric varices. There is a mass in the left lobe, primarily in the lateral segments, but also extending medially. This measures 7.7 x 5 x 4.8 cm in greatest transverse, anteroposterior, and craniocaudal dimensions respectively. This is hypodense/hypoenhancing compared to relatively normal adjacent parenchyma in the portal venous phase. This could reflect early washout of a hepatocellular carcinoma, particularly given cirrhosis. A large metastasis is also possible. Cholelithiasis. 2.2 cm densely calcified stone in the dependent gallbladder. No biliary ductal dilation. Both kidneys demonstrate multiple hypodense lesions, which are too small to characterize. No hydronephrosis. There is no bowel obstruction or perforation. The appendix is not well seen. Leftward pelvic calcification may reflect a subserosal uterine fibroid. No abdominal aortic aneurysm. No acute fracture. IMPRESSION: 7.7 cm left lobe hepatic mass is concerning for hepatocellular carcinoma, particularly given cirrhosis. A large metastasis is also possible. Consider multiphase hepatic protocol MRI. Right renal hypodensities that are too small to characterize. Cholelithiasis. code status changed hospice please para for comfort today she is very very distended and firm from fluid [place] Jul 01, 2019 14:47
--- NOTE | 2019-07-01 14:48 | NUR ---
INSURANCE REVIEW AND PROGRESS NOTE FAXED TO #[phone] FAX#[phone] REVIEWS/CLINICALS
[2019-07-01 15:17] LABS: HEMOGLOBIN 7.8 G/DL (12.0-16.0); MEAN CORPUSCULAR VOLUME 100 FL (80-99); PLATELET COUNT 58 K/UL (150-450); RED CELL DISTRIBUTION WIDTH 19.7 % (11.6-14.8); WHITE BLOOD COUNT 15.6 K/UL (4.8-10.8)
--- NOTE | 2019-07-01 15:45 | NUR ---
NURSE NOTES: Left message for Dr Staples regarding Hgb of 7.8 and Hct 22. Awaiting call back.
--- NOTE | 2019-07-01 16:00 | NUR ---
NURSE NOTES: Patient mentation remains unchanged. Patient confused to time, place, and purpose. Patient continues to yell out, "Help, help" even when nurse in the room assisting her. Blood pressure now 114/46. Levophed running at 6mcg/min at this time. Patient has 2L nasal cannula at this time with no sign of respiratory distress. RR 13 and SpO2 100%. 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 Right internal jugular central line patent, asymptomatic, and running D5 0.2% normal saline at 75mL/hr. Neal remains in place with dark korin urine noted. Abdomen remains distended, round, tight. paracentesis done with 7L out. Will continue to turn patient every two hours and as needed. Patient bed in low position with bed alarm on and call light in reach at this time. Will continue to monitor. Oral care and repositioning done at this time.
--- NOTE | 2019-07-01 16:48 | NUR ---
NURSE NOTES: Received call back from Dr Staples. He is aware of Hgb and Hct values. No new orders received at this time.
--- NOTE | 2019-07-01 18:00 | NUR ---
NURSE NOTES: Blood pressure 108/77 with Levophed running at 6mcg/min. Will continue to monitor and titrate per protocol. Patient repositioned and bed bath done at this time.
--- NOTE | 2019-07-01 18:15 | Consultation ---
DATE OF CONSULTATION: 07/01/2019 NEUROLOGIC CONSULTATION CONSULTING PHYSICIAN: Jose Smith M.D. HISTORY OF PRESENT ILLNESS: This is the first [facility] admission for this 69-year-old woman with history of schizophrenia, gallstones, large hepatic mass with distention of the abdomen probably due to hepatic carcinoma, GERD, severe anemia, respiratory insufficiency, dehydration, and pulmonary nodules. I was asked to see the patient because of increasing lethargy over the last evening or so. Patient has a complicated history. She was found on admission to have an elevated white count, noted to be anemic with thrombocytopenia. Hemoglobin got as low as 5.4; however, with transfusions, it is now up to 8.5. White count is up to 18,000. Platelet count today is 83,000. The patient's ProTime on admission was slightly elevated at 12, today it is 14.5 with an INR of 1.4, PTT of 33. D-dimer is 13.01. The patient's urinalysis revealed some mild pyuria with few bacteria initially. Chemistries noted elevated total bilirubin of 2.6 with a direct of 1.5 and elevated alkaline phosphatase. Ammonia is within normal except for today at 39. The serum sodium is fluctuated and slightly elevated. Today, it is 147. The chest x-ray initially revealed a questionable opacity at the left lung base. The chest, abdomen, pelvis CT revealed multiple pulmonary nodules, especially in the right upper lobe and along the lateral head margin. CT of the abdomen revealed a mass in the left lobe. This could be hepatocellular carcinoma. Also, the patient has cirrhosis and cholelithiasis. The patient's most recent chest x-ray yesterday revealed questionable right-sided pleural effusion. No pneumothorax. The patient did have a biopsy aspiration paracentesis on 06/25/2019. The pathology is still pending. The patient has been alert and awake, but encephalopathic and was lethargic on 06/30/2019 and then transferred to the ICU with hypotension. Blood pressure was 81/41. I was asked see the patient in neurologic consultation. The patient is on antibiotics. She also is on tramadol, but was discontinued yesterday. She was on it every 4 hours 25 mg. She was also on Zyprexa, discontinued today 7.5 mg b.i.d. She was given midodrine for blood pressure on 06/27/2019, discontinued yesterday. She is also on Reglan given on 06/26/2019, discontinued yesterday. She has also been on over the last several days 20 g and also given lorazepam 3 doses starting on 06/27/2019, and Rocephin was discontinued yesterday. Patient cannot give any further history. There is no family history of neurologic disease. PAST MEDICAL HISTORY/PAST MEDICAL ILLNESSES: See above. ALLERGIES: She is allergic to penicillin. HABITS: There is no history of tobacco use or alcohol use. MEDICATIONS: She is on Celexa, Haldol, Senokot, and Cogentin on admission. REVIEW OF SYSTEMS: Unavailable. PHYSICAL EXAMINATION: GENERAL: She is a cachectic appearing woman, in moderate distress, lying in bed, calling for help. VITAL SIGNS: The pulse is 97 and regular, respiratory rate is 14, blood pressure is 113/46, temperature is 97.8 degrees. HEENT: Reveals a temporalis muscle wasting and cachexia. NECK: She has bandages on the right side of the neck. The neck is stiff in anterior, posterior, and lateral movements. Carotids could not be felt. LUNGS: Appear to be clear. CARDIOVASCULAR: There is no S3, S4, murmurs, or rubs appreciated. ABDOMEN: The abdomen was distended and was rigid and tender. Bowel sounds were decreased. Given the rigidity, hard to feel a definite mass. BACK: Not examined. EXTREMITIES: She had lesions on her heels. NEUROLOGIC EXAMINATION: MENTAL STATUS: Patient is awake with decreased attention span. Judgment could be tested. Affect was appropriate to her mood, which is depressed. Memories could not be tested. Orientation, she did know the date or the month or the year. Place, she did know where she was. Person, she knew her name. She could follow some one-step commands partially, stick out her tongue, raise right and left hand, move her legs. CRANIAL NERVE EXAMINATION: CRANIAL NERVE II: Visual funes appeared to be intact on the right. CRANIAL NERVE III, IV, AND : The eyes were in the midline. There is horizontal movement to the left and some movement to the right. Pupils were approximately 3 mm, round, sluggishly light reactive. CRANIAL NERVE V: Corneals appear to be intact bilaterally. CRANIAL NERVE : There is no facial asymmetry. CRANIAL NERVES IX THROUGH XII: The tongue is protruded partially. The rest of the cranial nerves could not be tested. MUSCLE EXAMINATION: There is decreased symmetrical bulk in the upper and lower extremities. Tone was decreased bilaterally and kettle cleaner was strong bilaterally in the upper extremities and she moves both legs symmetrically. REFLEXES: Trace in the upper extremities, 0 at the knees and ankles with downgoing toes and testing for Babinski response. COORDINATION: Could not be tested. SENSORY EXAM: Deep pain was partially intact in the extremities. IMPRESSION: This patient has a multifocal metabolic encephalopathy. She could also have carcinomatous meningitis and/or multiple small metastatic lesions to the brain, although I doubt it. Hepatocellular carcinoma generally does not metastasize to the brain or meninges that often. Patient's change in mental status is probably due to hypotension, which is related to her anemia. She appears to be dehydrated and possibly related to medications or medications could also be adding to her encephalopathy such as lorazepam and Seroquel and tramadol. Certainly, patient is end stage. I would probably order a CT scan of the brain to exclude a subdural hematoma or any significant large metastatic disease. In any event, she is not a candidate for surgery. PLAN: 1. I will speak to you about this case. 2. Comfort care. Jose Smith MD DR: LÁZARO JOB#: [id number] CC: NOAR
--- NOTE | 2019-07-01 19:16 | NUR ---
HAND-OFF: Report given to AROLDO Thomas. Patient restless and yelling at this time. VItal signs stable on Levophed at 6mcg/min. Endorsed to follow up.
[2019-07-01] MEDS: cefTRIAXone 1 GM in D5W 55 ML IVPB SCH (19:50)
--- NOTE | 2019-07-01 20:00 | NUR ---
NURSE NOTES: received report from aj rodriguez pt awake and confuse and restless on amadeo soft wriest restraint non complaint tolerating tube feeding no residuall
--- NOTE | 2019-07-01 21:47 | General Progress Note ---
Assessment/Plan Problem List: (1) Dehydration ICD Codes: E86.0 - Dehydration SNOMED: 12858791 (2) Hypoxia ICD Codes: R09.02 - Hypoxemia SNOMED: 009037261 (3) Abdominal pain ICD Codes: R10.9 - Unspecified abdominal pain SNOMED: 86566570 Qualifiers: Qualified Codes: R10.9 - Unspecified abdominal pain (4) Pneumonia ICD Codes: J18.9 - Pneumonia, unspecified organism SNOMED: 268608475 Qualifiers: Qualified Codes: J18.9 - Pneumonia, unspecified organism (5) HCC (hepatocellular carcinoma) ICD Codes: C22.0 - Liver cell carcinoma SNOMED: 125218081 Status: deteriorating Assessment/Plan: hypotensive on pressors speaking with family to make her dnr.they are talking it over with family members cirrhosis portal htn gastric varices sugar is good mets cancer HCC niddm poor prognosis Arf worsening leukocytosis hypotension Subjective ROS Limited/Unobtainable: Yes Allergies: Coded Allergies: PENICILLINS (Verified Allergy, Unknown, 06/18/19) Objective Last 24 Hour Vital Signs Date Time Temp Pulse Resp B/P (MAP) Pulse Ox O2 Delivery O2 Flow Rate FiO2 07/01/19 21:13 105/45 07/01/19 19:00 97 18 115/42 (66) 100 07/01/19 19:00 111/39 07/01/19 18:30 87 12 114/45 (68) 100 07/01/19 18:15 95 12 110/28 (55) 100 07/01/19 18:00 87 14 108/77 (87) 100 07/01/19 18:00 108/77 07/01/19 17:45 91 12 100/36 (57) 100 07/01/19 17:30 85 11 102/40 (60) 100 07/01/19 17:15 97 17 100/37 (58) 100 07/01/19 17:00 117/43 07/01/19 17:00 89 13 117/43 (67) 100 07/01/19 16:45 94 13 109/34 (59) 100 07/01/19 16:30 98 13 108/66 (80) 100 07/01/19 16:15 82 11 91/73 (79) 100 07/01/19 16:00 114/46 07/01/19 16:00 97.6 89 10 114/46 (68) 100 07/01/19 15:45 84 11 110/43 (65) 100 07/01/19 15:30 91 13 123/36 (65) 100 07/01/19 15:15 85 13 102/39 (60) 100 07/01/19 15:00 90 12 121/43 (69) 100 07/01/19 15:00 121/43 07/01/19 14:45 116/56 07/01/19 14:45 88 14 116/56 (76) 100 07/01/19 14:30 58/24 07/01/19 14:30 89 15 97/60 (72) 100 07/01/19 14:15 86 12 91/35 (53) 100 07/01/19 14:15 91/35 07/01/19 14:00 102/33 07/01/19 14:00 92 15 102/33 (56) 100 07/01/19 13:45 93 12 100/42 (61) 100 07/01/19 13:41 89 12 99/50 (66) 100 07/01/19 13:30 98 13 100/30 (53) 100 07/01/19 13:30 99/50 07/01/19 13:15 101 16 91/32 (51) 100 07/01/19 13:00 105 19 121/60 (80) 100 07/01/19 12:30 110 20 133/74 (93) 100 07/01/19 12:00 111 19 137/73 (94) 100 07/01/19 12:00 108 07/01/19 12:00 Nasal Cannula 2.0 07/01/19 11:30 97.7 112 20 126/71 (89) 100 07/01/19 11:20 141/53 07/01/19 11:00 136/58 07/01/19 11:00 108 17 134/56 (82) 100 07/01/19 10:30 104 14 121/67 (85) 100 07/01/19 10:00 121/74 07/01/19 10:00 104 15 121/74 (90) 100 07/01/19 09:30 95 14 130/65 (86) 100 07/01/19 09:00 95 14 130/65 (86) 100 07/01/19 09:00 121/74 4/9/20 08:30 102 17 114/51 (72) 100 07/01/19 08:00 130/65 07/01/19 08:00 Nasal Cannula 2.0 07/01/19 08:00 97.6 07/01/19 08:00 102 17 114/51 (72) 100 07/01/19 08:00 100 07/01/19 07:30 89 12 106/41 (62) 100 07/01/19 07:00 120/36 07/01/19 07:00 97 14 113/46 (68) 100 07/01/19 06:47 102/53 07/01/19 06:45 97 14 118/45 (69) 100 07/01/19 06:30 89 12 102/53 (69) 100 07/01/19 06:15 93 13 117/70 (86) 100 07/01/19 06:15 93 13 117/70 (86) 100 07/01/19 06:00 110/36 07/01/19 06:00 95 14 110/35 (60) 100 07/01/19 05:45 96 15 94/44 (61) 94 07/01/19 05:30 93 13 105/45 (65) 100 07/01/19 05:15 95 16 113/38 (63) 100 07/01/19 05:00 99 17 98/40 (59) 95 07/01/19 05:00 98/40 07/01/19 04:45 88 17 119/46 (70) 95 07/01/19 04:30 104 17 119/46 (70) 95 07/01/19 04:15 109 16 146/132 (137) 87 07/01/19 04:00 139/44 07/01/19 04:00 Nasal Cannula 2.0 07/01/19 04:00 97.8 98 139/44 (75) 84 07/01/19 03:45 93 119/76 (90) 94 07/01/19 03:30 91 105/48 (67) 100 07/01/19 03:15 105 125/69 (87) 100 07/01/19 03:00 119/58 07/01/19 03:00 97 14 119/58 (78) 100 07/01/19 02:30 94 106/43 (64) 100 07/01/19 02:00 94 109/44 (65) 100 07/01/19 02:00 113/40 07/01/19 01:00 96/43 07/01/19 00:45 87 92/41 (58) 100 07/01/19 00:30 89 94/41 (58) 100 07/01/19 00:15 88 97/42 (60) 100 07/01/19 00:00 Nasal Cannula 2.0 07/01/19 00:00 95/56 07/01/19 00:00 97.8 89 93/38 (56) 100 07/01/19 00:00 Nasal Cannula 2.0 06/30/19 23:45 91 101/38 (59) 100 06/30/19 23:15 88 14 94/44 (61) 100 06/30/19 23:00 90/46 06/30/19 23:00 94 12 93/37 (55) 100 06/30/19 22:45 94 12 90/50 (63) 100 06/30/19 22:30 86/46 06/30/19 22:30 97 17 93/42 (59) 93 06/30/19 22:15 89 14 94/40 (58) 06/30/19 22:00 88 13 85/38 (54) 100 Intake and Output 06/30/19 07/01/19 19:00 07:00 Intake Total 1810.625 ml Output Total 240 ml Balance 1570.625 ml IV Total 1810.625 ml Output Urine Total 240 ml Laboratory Tests 07/01/19 04:00: White Blood Count 18.0H, Red Blood Count 2.46L, Hemoglobin 8.2L, Hematocrit 24.4L, Mean Corpuscular Volume 99, Mean Corpuscular Hemoglobin 33.2H, Mean Corpuscular Hemoglobin Concent 33.0, Red Cell Distribution Width 20.7H, Platelet Count 83L, Mean Platelet Volume 6.5, Neutrophils (%) (Auto) , Lymphocytes (%) (Auto) , Monocytes (%) (Auto) , Eosinophils (%) (Auto) , Basophils (%) (Auto) , Differential Total Cells Counted 100, Neutrophils % ( Manual) 83H, Lymphocytes % (Manual) 7L, Monocytes % (Manual) 8, Eosinophils % ( Manual) 1, Basophils % (Manual) 1, Band Neutrophils 0, Platelet Estimate DecreasedL, Platelet Morphology Normal, Hypochromasia 2+, Anisocytosis 2+, Prothrombin Time 14.5H, Prothromb Time International Ratio 1.4H, Activated Partial Thromboplast Time 33, D-Dimer 13.01H, Sodium Level 147H, Potassium Level 4.6, Chloride Level 115H, Carbon Dioxide Level 20L, Anion Gap 12, Blood Urea Nitrogen 91H, Creatinine 1.8H, Estimat Glomerular Filtration Rate 28.0, Glucose Level 248H, Lactic Acid Level 1.80, Uric Acid 13.9H, Calcium Level 7.7L , Phosphorus Level 5.3H, Ferritin 160, Total Bilirubin 2.6H, Direct Bilirubin 1.5H, Gamma Glutamyl Transpeptidase 152H, Aspartate Amino Transf (AST/SGOT) 29, Alanine Aminotransferase (ALT/SGPT) 14, Alkaline Phosphatase 138H, Ammonia 39H, Lactate Dehydrogenase 257H, Troponin I 0.008, C-Reactive Protein, Quantitative 7.2H, Pro-B-Type Natriuretic Peptide 255H, Total Protein 6.2L, Albumin 2.9L, Globulin 3.3, Albumin/Globulin Ratio 0.9L 07/01/19 08:24: Arterial Blood pH 7.393, Arterial Blood Partial Pressure CO2 34.2L, Arterial Blood Partial Pressure O2 150.9H, Arterial Blood HCO3 20.4L, Arterial Blood Oxygen Saturation 98.7, Arterial Blood Base Excess -4.0L, Sascha Test Positive 07/01/19 14:43: White Blood Count 15.6H, Red Blood Count 2.20L, Hemoglobin 7.8L, Hematocrit 22.0L, Mean Corpuscular Volume 100H, Mean Corpuscular Hemoglobin 35.6H, Mean Corpuscular Hemoglobin Concent 35.7, Red Cell Distribution Width 19.7H, Platelet Count 58L, Mean Platelet Volume 6.7, Neutrophils (%) (Auto) , Lymphocytes (%) (Auto) , Monocytes (%) (Auto) , Eosinophils (%) (Auto) , Basophils (%) (Auto) , Differential Total Cells Counted 100, Neutrophils % ( Manual) 87H, Lymphocytes % (Manual) 6L, Monocytes % (Manual) 5, Eosinophils % ( Manual) 1, Basophils % (Manual) 0, Band Neutrophils 1, Platelet Estimate DecreasedL, Platelet Morphology Normal, Anisocytosis 2+, Polychromasia 1+, Macrocytosis 1+ Height (Feet): 5 Height (Inches): 3.00 Weight (Pounds): 141 Era Acuña MD Jul 01, 2019 21:47
--- NOTE | 2019-07-01 22:00 | NUR ---
NURSE NOTES: reposition AND SUCTION NO RESP DISTRESS NOTED
[2019-07-02] VITALS (45 sets, daily range): BP systolic 77–145; BP diastolic 24–76
--- NOTE | 2019-07-02 | NUR ---
NURSE NOTES: awake and restless no acute resp distress noted tube feeding tolerating well
--- NOTE | 2019-07-02 01:04 | Psych Consult Progress Note ---
Psychiatry Progress Note Psychiatry Progress Note Subjective the pt was agitated yelling . zyprexa was ordered prn Medications Current Medications Medications (Trade) Dose Ordered Sig/Idalia Route PRN Reason Start Time Stop Time Status Last Admin Dose Admin Acetaminophen (Tylenol) 500 mg Q6H PRN ORAL MILD/TEMP 07/01/19 02:45 07/18/19 14:33 Allopurinol (allopurinoL) 300 mg DAILY NG 07/01/19 14:30 07/31/19 14:29 07/01/19 14:14 Barium Sulfate (Varibar Honey) 250 ml NOW PRN MC RAD 07/01/19 13:45 07/03/19 13:30 Barium Sulfate (Varibar [place]) 240 ml NOW PRN MC RAD 07/01/19 13:45 07/03/19 13:30 Barium Sulfate (Varibar Pudding) 230 ml NOW PRN RAD 07/01/19 13:45 07/03/19 13:30 Barium Sulfate (Varibar Thin Liquid powder) 148 gm NOW PRN RAD 07/01/19 13:45 07/03/19 13:30 Ceftriaxone Sodium 1 gm/ Dextrose 55 ml @ 110 mls/hr Q24H IVPB 07/01/19 19:30 07/07/19 19:29 07/01/19 19:50 Dextrose (Dextrose 50%) 25 ml Q30M PRN IV Hypoglycemia 06/30/19 21:45 09/17/19 14:33 Dextrose (Dextrose 50%) 50 ml Q30M PRN IV Hypoglycemia 06/30/19 21:45 09/17/19 09:44 Dextrose/Sodium Chloride 1,000 ml @ 75 mls/hr [id number] IV 07/01/19 13:13 07/31/19 13:12 07/01/19 14:09 Insulin Aspart (NovoLOG) BEFORE MEALS AND HS SUBQ 07/01/19 06:30 09/17/19 11:29 07/01/19 21:07 Lactulose (Cephulac) 20 gm THREE TIMES A DAY NG 07/01/19 09:00 07/26/19 08:59 07/01/19 17:44 Midodrine (Pro-Amatine) 10 mg THREE TIMES A DAY NG 07/01/19 09:00 09/25/19 12:59 07/01/19 17:44 Naloxone HCl (Narcan) 0.2 mg Q2M PRN IVP respiratory depression 06/30/19 21:45 09/18/19 11:59 Norepinephrine Bitartrate 4 mg/ Dextrose 250 ml @ 0 mls/hr Q24H IV 06/30/19 22:30 07/30/19 22:29 07/01/19 21:13 Pantoprazole (Protonix) 40 mg Q12HR IVP 07/01/19 09:00 07/23/19 08:59 07/01/19 21:03 Allergies: Coded Allergies: PENICILLINS (Verified Allergy, Unknown, 06/18/19) Objective Data Height (Feet): 5 Height (Inches): 3.00 Weight (Pounds): 141 Assessment/Plan Status: deteriorating Assessment/Plan: PLAN: 1. Lorazepam p.r.n. 2. Olanzapine 5 mg p.o. qhs 3. Continue to follow and readjust the medications. Per Holden MD Jul 02, 2019 01:04
[2019-07-02] MEDS ORDERED: OLANZapine 2.5mg tab ORAL PRN (01:15)
--- NOTE | 2019-07-02 02:00 | NUR ---
NURSE NOTES:bed bath oral care and back care done
--- NOTE | 2019-07-02 04:00 | NUR ---
NURSE NOTES:no acute resp distress note
[2019-07-02] MEDS: D5 1/4NS 1000ml 1,000 ML IV SCH ×3 (04:48→22:10)
[2019-07-02 05:36] LABS: HEMATOCRIT 20.5 % (37.0-47.0); HEMOGLOBIN 8.4 G/DL (12.0-16.0); MEAN CORPUSCULAR VOLUME 101 FL (80-99); PLATELET COUNT 56 K/UL (150-450); RED BLOOD COUNT 2.03 M/UL (4.20-5.40); RED CELL DISTRIBUTION WIDTH 20.9 % (11.6-14.8); WHITE BLOOD COUNT 21.2 K/UL (4.8-10.8)
--- NOTE | 2019-07-02 05:45 | Progress Note ---
DATE: 07/01/2019 The patient remained agitated through the hospitalization. She was on psychotropic medications prior to hospitalization, she was on Zyprexa 7.5 b.i.d. Still remains severely agitated, on restraints. The patient became hypotensive and lethargic most likely due to hypotension and anemia. The pt was not given all zyprexa doses. On 4/8 am i discontinued the zyprexa. The nurse contacted me to discontinue the restraints. I also asked to stop all her psychotropic medications as the patient was lethargic. The nurse reported no psych meds were not given. The patient now is in ICU. She has multiple medical issues including leukocytosis, high cr, anemia, liver dx. Zyprexa does not cause hypotension. On the other hand, multiple medical issues that she has including renal insufficiency, liver dx/carcinoma, and having infections and anemia may cause severe hypotension and lethargy. The psych meds will be restarted as the pt is agitated per nurse the pt has been yelling and agitated. The pt is on pain meds per nurse not adequate. Per Holden M.D. DR: David JOB#: [id number] CC: NORA
[2019-07-02] MEDS: NovoLOG Insulin Flexpen SUBQ SCH ×4 (05:54→21:00)
--- NOTE | 2019-07-02 06:00 | NUR ---
NURSE NOTES: bs 353 insulin given as order
[2019-07-02 06:01] LABS: ALANINE AMINOTRANSFERASE 22 U/L (12-78); ALBUMIN 2.8 G/DL (3.4-5.0); ALBUMIN/GLOBULIN RATIO 0.9 (1.0-2.7); ALKALINE PHOSPHATASE 135 U/L (46-116); ASPARTATE AMINO TRANSFERASE 41 U/L (15-37); BILIRUBIN,TOTAL 2.2 MG/DL (0.2-1.0); BLOOD UREA NITROGEN 80 mg/dL (7-18); CARBON DIOXIDE 17 MMOL/L (21-32); CHLORIDE 109 MMOL/L (98-107); CREATININE 1.8 MG/DL (0.55-1.30); POTASSIUM 3.8 MMOL/L (3.5-5.1); SODIUM 140 MMOL/L (136-145)
[2019-07-02 06:09] LABS: BILIRUBIN,DIRECT 1.4 MG/DL (0.0-0.3)
[2019-07-02 06:19] LABS: AMMONIA 93 umol/L (11-32)
--- NOTE | 2019-07-02 07:20 | NUR ---
NURSE NOTES: Received patient from [facility] KENDRICK. Patient is asleep. Sinus Tachycardia on the hear monitor, HR 113. Receiving oxygen via nasal cannula at 2L/min, no signs of respiratory distress, O2 Sat at 100%. Right Nares NGT is intact and receiving Glucerna 1.5 at 40cc/hr. IV site is Right IJ TLC receiving Levophed at 2mcg/min and D5NS at 75cc/hr. Neal catheter is intact and draining. Bed is locked, placed in lowest position, side rails up x3, bed alarm on, call light within reach. Will continue to monitor. Addendum: 07/02/19 at 0759 by Shraon Pereyra RN NURSE NOTES: Received patient from [facility] KENDRICK. Patient is asleep. Sinus Tachycardia on the hear monitor, HR 113. Receiving oxygen via nasal cannula at 2L/min, no signs of respiratory distress, O2 Sat at 100%. Right Nares NGT is intact and receiving Glucerna 1.5 at 40cc/hr. IV site is Right IJ TLC receiving Levophed at 2mcg/min and D5 1/4 NS at 75cc/hr. Neal catheter is intact and draining. Bed is locked, placed in lowest position, side rails up x3, bed alarm on, call light within reach. Will continue to monitor.
--- NOTE | 2019-07-02 07:41 | NUR ---
HAND-OFF: Report given to [].
[2019-07-02] MEDS: Lactulose 20gm/30ml UDC NG SCH ×3 (08:37→18:32)
[2019-07-02] MEDS: Pantoprazole Inj IVP SCH ×2 (08:37→22:09)
--- NOTE | 2019-07-02 08:58 | NUR ---
NURSE NOTES: Patient turned and repositioned, oral care and oral suctioning given after patient had vomited approximately 30ml, NGT feeding was turned off. MD will be contacted.
--- NOTE | 2019-07-02 09:17 | NUR ---
NURSE NOTES: Contacted Dr. Childers office regarding episode of vomiting, awaiting call back.
--- NOTE | 2019-07-02 09:47 | NUR ---
NURSE NOTES: Received call back from Dr. Childers. Orders will be placed by
--- NOTE | 2019-07-02 09:51 | General Progress Note ---
Assessment/Plan Status: deteriorating Assessment/Plan: Assessment/Plan Assessment/Plan: Assessment - Cirrhosis, ? etiology - Large liver mass, suspect CA - poor Px - lung nodules - abd distention, ascites -FTT -Anemia -UTI -DM -gallstones -GV Recommendations - Cirrhsis w/u ([facility]BV, [facility], [facility], [facility]) -low dose Propranolol -Repeat labs -tumor markers reviewed>>>? cholangio CA with liver mets _ s/p EGD>>> gastric varices -s/p paracentesis 7 lit albumin lactulose NGTF>>> will hold given vomiting add Zofran poor prognosis Subjective ROS Limited/Unobtainable: No Allergies: Coded Allergies: PENICILLINS (Verified Allergy, Unknown, 06/18/19) Objective Last 24 Hour Vital Signs Date Time Temp Pulse Resp B/P (MAP) Pulse Ox O2 Delivery O2 Flow Rate FiO2 07/02/19 09:00 112 19 117/59 (78) 100 07/02/19 08:45 122 24 133/54 (80) 96 07/02/19 08:30 107 17 112/53 (72) 100 07/02/19 08:15 105 17 111/54 (73) 100 07/02/19 08:00 98.5 113 15 112/37 (62) 100 07/02/19 07:30 108 15 100/44 (62) 100 07/02/19 07:00 105 15 93/48 (63) 100 07/02/19 06:30 76 14 99/64 (76) 100 07/02/19 06:15 105 14 115/49 (71) 100 07/02/19 06:00 99/46 07/02/19 06:00 105 15 95/58 (70) 07/02/19 05:45 112 16 104/46 (65) 100 07/02/19 05:30 115 15 109/37 (61) 100 07/02/19 05:15 124 20 115/24 (54) 100 07/02/19 05:00 117 17 124/48 (73) 100 07/02/19 05:00 115/49 07/02/19 04:45 112 14 116/40 (65) 100 07/02/19 04:30 106 17 114/55 (74) 99 07/02/19 04:15 114 16 122/46 (71) 100 07/02/19 04:00 115/40 07/02/19 04:00 98.5 113 16 120/52 (74) 95 07/02/19 03:45 110 15 109/45 (66) 100 07/02/19 03:30 107 16 104/56 (72) 100 07/02/19 03:15 107 16 112/53 (72) 98 07/02/19 03:00 109 16 114/57 (76) 100 07/02/19 03:00 112/53 07/02/19 02:45 113 17 131/50 (77) 100 07/02/19 02:30 104 16 112/60 (77) 100 07/02/19 02:00 111 17 124/43 (70) 99 07/02/19 02:00 97/48 07/02/19 01:30 110 15 120/51 (74) 100 07/02/19 01:00 114/61 07/02/19 01:00 106 15 138/50 (79) 100 07/02/19 00:30 73 130/46 (74) 07/02/19 00:00 98.4 99 16 109/56 (73) 100 07/02/19 00:00 128/52 07/01/19 23:30 109 14 125/46 (72) 100 07/01/19 23:00 108 13 121/87 (98) 100 07/01/19 23:00 132/56 07/01/19 22:30 110 16 127/46 (73) 100 07/01/19 22:00 93 12 116/36 (62) 100 07/01/19 22:00 132/65 07/01/19 21:30 104 14 119/40 (66) 100 07/01/19 21:15 107 19 108/48 (68) 100 07/01/19 21:13 105/45 07/01/19 21:00 132/65 07/01/19 21:00 103 15 105/45 (65) 100 07/01/19 20:30 84 11 110/38 (62) 100 07/01/19 20:00 98.4 100 13 117/50 (72) 100 07/01/19 20:00 127/64 07/01/19 19:00 97 18 115/42 (66) 100 4/9/20 19:00 111/39 07/01/19 18:30 87 12 114/45 (68) 100 07/01/19 18:15 95 12 110/28 (55) 100 07/01/19 18:00 87 14 108/77 (87) 100 07/01/19 18:00 108/77 07/01/19 17:45 91 12 100/36 (57) 100 07/01/19 17:30 85 11 102/40 (60) 100 07/01/19 17:15 97 17 100/37 (58) 100 07/01/19 17:00 117/43 07/01/19 17:00 89 13 117/43 (67) 100 07/01/19 16:45 94 13 109/34 (59) 100 07/01/19 16:30 98 13 108/66 (80) 100 07/01/19 16:15 82 11 91/73 (79) 100 07/01/19 16:00 114/46 07/01/19 16:00 97.6 89 10 114/46 (68) 100 07/01/19 15:45 84 11 110/43 (65) 100 07/01/19 15:30 91 13 123/36 (65) 100 07/01/19 15:15 85 13 102/39 (60) 100 07/01/19 15:00 90 12 121/43 (69) 100 07/01/19 15:00 121/43 07/01/19 14:45 116/56 07/01/19 14:45 88 14 116/56 (76) 100 07/01/19 14:30 58/24 07/01/19 14:30 89 15 97/60 (72) 100 07/01/19 14:15 86 12 91/35 (53) 100 07/01/19 14:15 91/35 07/01/19 14:00 102/33 07/01/19 14:00 92 15 102/33 (56) 100 07/01/19 13:45 93 12 100/42 (61) 100 07/01/19 13:41 89 12 99/50 (66) 100 07/01/19 13:30 98 13 100/30 (53) 100 07/01/19 13:30 99/50 07/01/19 13:15 101 16 91/32 (51) 100 07/01/19 13:00 105 19 121/60 (80) 100 07/01/19 12:30 110 20 133/74 (93) 100 07/01/19 12:00 111 19 137/73 (94) 100 07/01/19 12:00 108 07/01/19 12:00 Nasal Cannula 2.0 07/01/19 11:30 97.7 112 20 126/71 (89) 100 07/01/19 11:20 141/53 07/01/19 11:00 136/58 07/01/19 11:00 108 17 134/56 (82) 100 07/01/19 10:30 104 14 121/67 (85) 100 07/01/19 10:00 121/74 07/01/19 10:00 104 15 121/74 (90) 100 Intake and Output 07/01/19 07/02/19 19:00 07:00 Intake Total 1219.375 ml 1602.75 ml Output Total 96773 ml 97760 ml Balance -54838.625 ml -71296.25 ml Free Water 60 ml IV Total 1129.375 ml 1022.75 ml Tube Feeding 60 ml 520 ml Other 30 ml Output Urine Total 303 ml 195 ml Other 30625 ml 71583 ml # Voids 2 Laboratory Tests 07/01/19 14:43: White Blood Count 15.6H, Red Blood Count 2.20L, Hemoglobin 7.8L, Hematocrit 22.0L, Mean Corpuscular Volume 100H, Mean Corpuscular Hemoglobin 35.6H, Mean Corpuscular Hemoglobin Concent 35.7, Red Cell Distribution Width 19.7H, Platelet Count 58L, Mean Platelet Volume 6.7, Neutrophils (%) (Auto) , Lymphocytes (%) (Auto) , Monocytes (%) (Auto) , Eosinophils (%) (Auto) , Basophils (%) (Auto) , Differential Total Cells Counted 100, Neutrophils % ( Manual) 87H, Lymphocytes % (Manual) 6L, Monocytes % (Manual) 5, Eosinophils % ( Manual) 1, Basophils % (Manual) 0, Band Neutrophils 1, Platelet Estimate DecreasedL, Platelet Morphology Normal, Polychromasia 1+, Anisocytosis 2+, Macrocytosis 1+ 07/02/19 03:40: White Blood Count 21.2H, Red Blood Count 2.03L, Hemoglobin 8.4L, Hematocrit 20.5L, Mean Corpuscular Volume 101H, Mean Corpuscular Hemoglobin 41.5H, Mean Corpuscular Hemoglobin Concent 41.0H, Red Cell Distribution Width 20.9H, Platelet Count 56L, Mean Platelet Volume 8.3, Neutrophils (%) (Auto) , Lymphocytes (%) (Auto) , Monocytes (%) (Auto) , Eosinophils (%) (Auto) , Basophils (%) (Auto) , Neutrophils % (Manual) [Pending], Lymphocytes % (Manual) [Pending], Platelet Estimate [Pending], Platelet Morphology [Pending], Sodium Level 140, Potassium Level 3.8, Chloride Level 109H, Carbon Dioxide Level 17L, Blood Urea Nitrogen 80H, Creatinine 1.8H, Estimat Glomerular Filtration Rate 28.0, Glucose Level 369#H, Uric Acid 12.1H, Calcium Level 7.0L, Phosphorus Level 3.0, Magnesium Level 3.1H, Total Bilirubin 2.2H, Direct Bilirubin 1.4H, Gamma Glutamyl Transpeptidase 142H, Aspartate Amino Transf (AST/SGOT) 41H, Alanine Aminotransferase (ALT/SGPT) 22, Alkaline Phosphatase 135H, Ammonia 93H, Total Protein 5.9L, Albumin 2.8L, Globulin 3.1, Albumin/Globulin Ratio 0.9L Height (Feet): 5 Height (Inches): 3.00 Weight (Pounds): 143 General Appearance: lethargic EENT: normal ENT inspection Neck: supple Cardiovascular: tachycardia Respiratory/Chest: decreased breath sounds Abdomen: non tender, hypoactive bowel sounds, distended Extremities: non-tender Howard Childers MD Jul 02, 2019 09:51
--- NOTE | 2019-07-02 10:20 | Infectious Diseases Prog Note ---
Assessment/Plan Assessment/Plan IMPRESSION: Hypoxemia and abnormal CT scan of the chest, more likely metastatic disease. Cirrhosis of liver Portal hypertension, Diabetes mellitus, Hypertension, Cholelithiasis, Anemia, suspected liver neoplasm. Gastric varices Acute renal failure RECOMMENDATION: Continue Rocephin 06/17, 06/22 COVID-19 test. Prognosis is poor Patient become DNR Subjective ROS Limited/Unobtainable: Yes Neurologic: Reports: confusion, other - on restraint Allergies: Coded Allergies: PENICILLINS (Verified Allergy, Unknown, 06/18/19) Objective Vital Signs Last 24 Hour Vital Signs Date Time Temp Pulse Resp B/P (MAP) Pulse Ox O2 Delivery O2 Flow Rate FiO2 07/02/19 10:00 101 13 77/54 (62) 100 07/02/19 09:30 111 17 100/52 (68) 100 07/02/19 09:00 112 19 117/59 (78) 100 07/02/19 08:45 122 24 133/54 (80) 96 07/02/19 08:30 107 17 112/53 (72) 100 07/02/19 08:15 105 17 111/54 (73) 100 07/02/19 08:00 98.5 113 15 112/37 (62) 100 07/02/19 07:30 108 15 100/44 (62) 100 07/02/19 07:00 105 15 93/48 (63) 100 07/02/19 06:30 76 14 99/64 (76) 100 07/02/19 06:15 105 14 115/49 (71) 100 07/02/19 06:00 99/46 07/02/19 06:00 105 15 95/58 (70) 07/02/19 05:45 112 16 104/46 (65) 100 07/02/19 05:30 115 15 109/37 (61) 100 07/02/19 05:15 124 20 115/24 (54) 100 07/02/19 05:00 117 17 124/48 (73) 100 07/02/19 05:00 115/49 07/02/19 04:45 112 14 116/40 (65) 100 07/02/19 04:30 106 17 114/55 (74) 99 07/02/19 04:15 114 16 122/46 (71) 100 07/02/19 04:00 115/40 07/02/19 04:00 98.5 113 16 120/52 (74) 95 07/02/19 03:45 110 15 109/45 (66) 100 07/02/19 03:30 107 16 104/56 (72) 100 07/02/19 03:15 107 16 112/53 (72) 98 07/02/19 03:00 109 16 114/57 (76) 100 07/02/19 03:00 112/53 07/02/19 02:45 113 17 131/50 (77) 100 07/02/19 02:30 104 16 112/60 (77) 100 07/02/19 02:00 111 17 124/43 (70) 99 07/02/19 02:00 97/48 07/02/19 01:30 110 15 120/51 (74) 100 07/02/19 01:00 114/61 07/02/19 01:00 106 15 138/50 (79) 100 07/02/19 00:30 73 130/46 (74) 07/02/19 00:00 98.4 99 16 109/56 (73) 100 07/02/19 00:00 128/52 07/01/19 23:30 109 14 125/46 (72) 100 07/01/19 23:00 108 13 121/87 (98) 100 07/01/19 23:00 132/56 07/01/19 22:30 110 16 127/46 (73) 100 07/01/19 22:00 93 12 116/36 (62) 100 07/01/19 22:00 132/65 07/01/19 21:30 104 14 119/40 (66) 100 07/01/19 21:15 107 19 108/48 (68) 100 07/01/19 21:13 105/45 07/01/19 21:00 132/65 07/01/19 21:00 103 15 105/45 (65) 100 07/01/19 20:30 84 11 110/38 (62) 100 07/01/19 20:00 98.4 100 13 117/50 (72) 100 07/01/19 20:00 127/64 07/01/19 19:00 97 18 115/42 (66) 100 07/01/19 19:00 111/39 07/01/19 18:30 87 12 114/45 (68) 100 07/01/19 18:15 95 12 110/28 (55) 100 07/01/19 18:00 87 14 108/77 (87) 100 07/01/19 18:00 108/77 07/01/19 17:45 91 12 100/36 (57) 100 07/01/19 17:30 85 11 102/40 (60) 100 07/01/19 17:15 97 17 100/37 (58) 100 07/01/19 17:00 117/43 07/01/19 17:00 89 13 117/43 (67) 100 07/01/19 16:45 94 13 109/34 (59) 100 07/01/19 16:30 98 13 108/66 (80) 100 07/01/19 16:15 82 11 91/73 (79) 100 07/01/19 16:00 114/46 07/01/19 16:00 97.6 89 10 114/46 (68) 100 07/01/19 15:45 84 11 110/43 (65) 100 07/01/19 15:30 91 13 123/36 (65) 100 07/01/19 15:15 85 13 102/39 (60) 100 07/01/19 15:00 90 12 121/43 (69) 100 07/01/19 15:00 121/43 07/01/19 14:45 116/56 07/01/19 14:45 88 14 116/56 (76) 100 07/01/19 14:30 58/24 07/01/19 14:30 89 15 97/60 (72) 100 07/01/19 14:15 86 12 91/35 (53) 100 07/01/19 14:15 91/35 07/01/19 14:00 102/33 07/01/19 14:00 92 15 102/33 (56) 100 07/01/19 13:45 93 12 100/42 (61) 100 07/01/19 13:41 89 12 99/50 (66) 100 07/01/19 13:30 98 13 100/30 (53) 100 07/01/19 13:30 99/50 07/01/19 13:15 101 16 91/32 (51) 100 07/01/19 13:00 105 19 121/60 (80) 100 07/01/19 12:30 110 20 133/74 (93) 100 07/01/19 12:00 111 19 137/73 (94) 100 07/01/19 12:00 108 07/01/19 12:00 Nasal Cannula 2.0 07/01/19 11:30 97.7 112 20 126/71 (89) 100 07/01/19 11:20 141/53 07/01/19 11:00 136/58 07/01/19 11:00 108 17 134/56 (82) 100 07/01/19 10:30 104 14 121/67 (85) 100 Height (Feet): 5 Height (Inches): 3.00 Weight (Pounds): 143 HEENT: other Respiratory/Chest: lungs clear Cardiovascular: tachycardia, other - RIJ central line Abdomen: distended Extremities: no edema Neurologic/Psychiatric: alert, responsive, disoriented Musculoskeletal: atrophy Laboratory Tests Test 07/01/19 14:43 07/02/19 03:40 White Blood Count 15.6 K/UL (4.8-10.8) H 21.2 K/UL (4.8-10.8) H Red Blood Count 2.20 M/UL (4.20-5.40) L 2.03 M/UL (4.20-5.40) L Hemoglobin 7.8 G/DL (12.0-16.0) L 8.4 G/DL (12.0-16.0) L Hematocrit 22.0 % (37.0-47.0) L 20.5 % (37.0-47.0) L Mean Corpuscular Volume 100 FL (80-99) H 101 FL (80-99) H Mean Corpuscular Hemoglobin 35.6 PG (27.0-31.0) H 41.5 PG (27.0-31.0) H Mean Corpuscular Hemoglobin Concent 35.7 G/DL (32.0-36.0) 41.0 G/DL (32.0-36.0) H Red Cell Distribution Width 19.7 % (11.6-14.8) H 20.9 % (11.6-14.8) H Platelet Count 58 K/UL (150-450) L 56 K/UL (150-450) L Mean Platelet Volume 6.7 FL (6.5-10.1) 8.3 FL (6.5-10.1) Neutrophils (%) (Auto) % (45.0-75.0) % (45.0-75.0) Lymphocytes (%) (Auto) % (20.0-45.0) % (20.0-45.0) Monocytes (%) (Auto) % (1.0-10.0) % (1.0-10.0) Eosinophils (%) (Auto) % (0.0-3.0) % (0.0-3.0) Basophils (%) (Auto) % (0.0-2.0) % (0.0-2.0) Differential Total Cells Counted 100 Neutrophils % (Manual) 87 % (45-75) H Pending Lymphocytes % (Manual) 6 % (20-45) L Pending Monocytes % (Manual) 5 % (1-10) Eosinophils % (Manual) 1 % (0-3) Basophils % (Manual) 0 % (0-2) Band Neutrophils 1 % (0-8) Platelet Estimate Decreased L Pending Platelet Morphology Normal Pending Polychromasia 1+ Anisocytosis 2+ Macrocytosis 1+ Sodium Level 140 MMOL/L (136-145) Potassium Level 3.8 MMOL/L (3.5-5.1) Chloride Level 109 MMOL/L (98-107) H Carbon Dioxide Level 17 MMOL/L (21-32) L Blood Urea Nitrogen 80 mg/dL (7-18) H Creatinine 1.8 MG/DL (0.55-1.30) H Estimat Glomerular Filtration Rate 28.0 mL/min (>60) Glucose Level 369 MG/DL (74-106) #H Uric Acid 12.1 MG/DL (2.6-7.2) H Calcium Level 7.0 MG/DL (8.5-10.1) L Phosphorus Level 3.0 MG/DL (2.5-4.9) Magnesium Level 3.1 MG/DL (1.8-2.4) H Total Bilirubin 2.2 MG/DL (0.2-1.0) H Direct Bilirubin 1.4 MG/DL (0.0-0.3) H Gamma Glutamyl Transpeptidase 142 U/L (5-85) H Aspartate Amino Transf (AST/SGOT) 41 U/L (15-37) H Alanine Aminotransferase (ALT/SGPT) 22 U/L (12-78) Alkaline Phosphatase 135 U/L (46-116) H Ammonia 93 umol/L (11-32) H Total Protein 5.9 G/DL (6.4-8.2) L Albumin 2.8 G/DL (3.4-5.0) L Globulin 3.1 g/dL Albumin/Globulin Ratio 0.9 (1.0-2.7) L Current Medications Medications (Trade) Dose Ordered Sig/Idalia Route PRN Reason Start Time Stop Time Status Last Admin Dose Admin Acetaminophen (Tylenol) 500 mg Q6H PRN ORAL MILD/TEMP 07/01/19 02:45 07/18/19 14:33 Allopurinol (allopurinoL) 300 mg DAILY NG 07/01/19 14:30 07/31/19 14:29 07/02/19 08:37 Barium Sulfate (Varibar Honey) 250 ml NOW PRN MC RAD 07/01/19 13:45 07/03/19 13:30 Barium Sulfate (Varibar Potwin) 240 ml NOW PRN MC RAD 07/01/19 13:45 07/03/19 13:30 Barium Sulfate (Varibar Pudding) 230 ml NOW PRN MC RAD 07/01/19 13:45 07/03/19 13:30 Barium Sulfate (Varibar Thin Liquid powder) 148 gm NOW PRN MC RAD 07/01/19 13:45 07/03/19 13:30 Ceftriaxone Sodium 1 gm/ Dextrose 55 ml @ 110 mls/hr Q24H IVPB 07/01/19 19:30 07/07/19 19:29 07/01/19 19:50 Dextrose (Dextrose 50%) 25 ml Q30M PRN IV Hypoglycemia 06/30/19 21:45 09/17/19 14:33 Dextrose (Dextrose 50%) 50 ml Q30M PRN IV Hypoglycemia 06/30/19 21:45 09/17/19 09:44 Dextrose/Sodium Chloride 1,000 ml @ 75 mls/hr [id number] IV 07/01/19 13:13 07/31/19 13:12 07/02/19 04:48 Insulin Aspart (NovoLOG) BEFORE MEALS AND HS SUBQ 07/01/19 06:30 09/17/19 11:29 07/02/19 05:54 Lactulose (Cephulac) 20 gm THREE TIMES A DAY NG 07/01/19 09:00 07/26/19 08:59 07/02/19 08:37 Midodrine (Pro-Amatine) 10 mg THREE TIMES A DAY NG 07/01/19 09:00 09/25/19 12:59 07/02/19 08:37 Naloxone HCl (Narcan) 0.2 mg Q2M PRN IVP respiratory depression 06/30/19 21:45 09/18/19 11:59 Norepinephrine Bitartrate 4 mg/ Dextrose 250 ml @ 0 mls/hr Q24H IV 06/30/19 22:30 07/30/19 22:29 07/01/19 21:13 Olanzapine (ZyPREXA) 5 mg BID PRN ORAL agitation 07/02/19 01:15 08/16/19 01:14 Ondansetron HCl (Zofran) 4 mg Q6H PRN IVP Nausea & Vomiting 07/02/19 10:00 08/01/19 09:59 Pantoprazole (Protonix) 40 mg Q12HR IVP 07/01/19 09:00 07/23/19 08:59 07/02/19 08:37 Manuel Kemp MD Jul 02, 2019 10:20
--- NOTE | 2019-07-02 11:06 | Pulmonology Progress Note ---
Assessment/Plan Assessment/Plan IMPRESSION: 1. Probable metastatic pulmonary disease. 2. Negative COVID-19. 3. Hepatocellular mass. Likely carcinoma 4. Schizophrenia. 5. Diabetes mellitus. 6. Anemia; now corrected DISCUSSION: Continue low flow O2 prn CXR no change; looks clear Discussed with Gastroenterology. Repeat COVID 19 negative Agree with hospice Patient now in ICU Off Levophed drip Encourage heme/PMD to discuss prognosis with family Trip Martines M.D. Subjective Interval Events: None new; off presors Constitutional: Reports: no symptoms HEENT: Repors: no symptoms Respiratory: Reports: no symptoms Cardiovascular: Reports: no symptoms Allergies: Coded Allergies: PENICILLINS (Verified Allergy, Unknown, 06/18/19) Objective Last 24 Hour Vital Signs Date Time Temp Pulse Resp B/P (MAP) Pulse Ox O2 Delivery O2 Flow Rate FiO2 07/02/19 10:30 109 19 105/55 (72) 100 07/02/19 10:15 112 16 99/59 (72) 100 07/02/19 10:00 101 13 77/54 (62) 100 07/02/19 09:30 111 17 100/52 (68) 100 07/02/19 09:00 112 19 117/59 (78) 100 07/02/19 08:45 122 24 133/54 (80) 96 07/02/19 08:30 107 17 112/53 (72) 100 07/02/19 08:15 105 17 111/54 (73) 100 07/02/19 08:00 98.5 113 15 112/37 (62) 100 07/02/19 07:30 108 15 100/44 (62) 100 07/02/19 07:00 105 15 93/48 (63) 100 07/02/19 06:30 76 14 99/64 (76) 100 07/02/19 06:15 105 14 115/49 (71) 100 07/02/19 06:00 99/46 07/02/19 06:00 105 15 95/58 (70) 07/02/19 05:45 112 16 104/46 (65) 100 07/02/19 05:30 115 15 109/37 (61) 100 07/02/19 05:15 124 20 115/24 (54) 100 07/02/19 05:00 117 17 124/48 (73) 100 07/02/19 05:00 115/49 07/02/19 04:45 112 14 116/40 (65) 100 07/02/19 04:30 106 17 114/55 (74) 99 07/02/19 04:15 114 16 122/46 (71) 100 07/02/19 04:00 115/40 07/02/19 04:00 98.5 113 16 120/52 (74) 95 07/02/19 03:45 110 15 109/45 (66) 100 07/02/19 03:30 107 16 104/56 (72) 100 07/02/19 03:15 107 16 112/53 (72) 98 07/02/19 03:00 109 16 114/57 (76) 100 07/02/19 03:00 112/53 07/02/19 02:45 113 17 131/50 (77) 100 07/02/19 02:30 104 16 112/60 (77) 100 07/02/19 02:00 111 17 124/43 (70) 99 07/02/19 02:00 97/48 07/02/19 01:30 110 15 120/51 (74) 100 07/02/19 01:00 114/61 07/02/19 01:00 106 15 138/50 (79) 100 07/02/19 00:30 73 130/46 (74) 07/02/19 00:00 98.4 99 16 109/56 (73) 100 07/02/19 00:00 128/52 07/01/19 23:30 109 14 125/46 (72) 100 07/01/19 23:00 108 13 121/87 (98) 100 07/01/19 23:00 132/56 07/01/19 22:30 110 16 127/46 (73) 100 07/01/19 22:00 93 12 116/36 (62) 100 07/01/19 22:00 132/65 07/01/19 21:30 104 14 119/40 (66) 100 07/01/19 21:15 107 19 108/48 (68) 100 07/01/19 21:13 105/45 07/01/19 21:00 132/65 07/01/19 21:00 103 15 105/45 (65) 100 07/01/19 20:30 84 11 110/38 (62) 100 07/01/19 20:00 98.4 100 13 117/50 (72) 100 07/01/19 20:00 127/64 07/01/19 19:00 97 18 115/42 (66) 100 07/01/19 19:00 111/39 07/01/19 18:30 87 12 114/45 (68) 100 07/01/19 18:15 95 12 110/28 (55) 100 07/01/19 18:00 87 14 108/77 (87) 100 07/01/19 18:00 108/77 07/01/19 17:45 91 12 100/36 (57) 100 07/01/19 17:30 85 11 102/40 (60) 100 07/01/19 17:15 97 17 100/37 (58) 100 07/01/19 17:00 117/43 07/01/19 17:00 89 13 117/43 (67) 100 07/01/19 16:45 94 13 109/34 (59) 100 07/01/19 16:30 98 13 108/66 (80) 100 07/01/19 16:15 82 11 91/73 (79) 100 07/01/19 16:00 114/46 07/01/19 16:00 97.6 89 10 114/46 (68) 100 07/01/19 15:45 84 11 110/43 (65) 100 07/01/19 15:30 91 13 123/36 (65) 100 07/01/19 15:15 85 13 102/39 (60) 100 07/01/19 15:00 90 12 121/43 (69) 100 07/01/19 15:00 121/43 07/01/19 14:45 116/56 07/01/19 14:45 88 14 116/56 (76) 100 07/01/19 14:30 58/24 07/01/19 14:30 89 15 97/60 (72) 100 07/01/19 14:15 86 12 91/35 (53) 100 07/01/19 14:15 91/35 07/01/19 14:00 102/33 07/01/19 14:00 92 15 102/33 (56) 100 07/01/19 13:45 93 12 100/42 (61) 100 07/01/19 13:41 89 12 99/50 (66) 100 07/01/19 13:30 98 13 100/30 (53) 100 07/01/19 13:30 99/50 07/01/19 13:15 101 16 91/32 (51) 100 07/01/19 13:00 105 19 121/60 (80) 100 07/01/19 12:30 110 20 133/74 (93) 100 07/01/19 12:00 111 19 137/73 (94) 100 07/01/19 12:00 108 07/01/19 12:00 Nasal Cannula 2.0 07/01/19 11:30 97.7 112 20 126/71 (89) 100 07/01/19 11:20 141/53 Intake and Output 07/01/19 07/02/19 19:00 07:00 Intake Total 1219.375 ml 1602.75 ml Output Total 38637 ml 43334 ml Balance -14912.625 ml -44764.25 ml Free Water 60 ml IV Total 1129.375 ml 1022.75 ml Tube Feeding 60 ml 520 ml Other 30 ml Output Urine Total 303 ml 195 ml Other 64825 ml 93084 ml # Voids 2 General Appearance: no acute distress HEENT: normocephalic Respiratory/Chest: chest wall non-tender, lungs clear Cardiovascular: normal peripheral pulses, normal rate Abdomen: normal bowel sounds Laboratory Tests 07/01/19 14:43: White Blood Count 15.6H, Red Blood Count 2.20L, Hemoglobin 7.8L, Hematocrit 22.0L, Mean Corpuscular Volume 100H, Mean Corpuscular Hemoglobin 35.6H, Mean Corpuscular Hemoglobin Concent 35.7, Red Cell Distribution Width 19.7H, Platelet Count 58L, Mean Platelet Volume 6.7, Neutrophils (%) (Auto) , Lymphocytes (%) (Auto) , Monocytes (%) (Auto) , Eosinophils (%) (Auto) , Basophils (%) (Auto) , Differential Total Cells Counted 100, Neutrophils % ( Manual) 87H, Lymphocytes % (Manual) 6L, Monocytes % (Manual) 5, Eosinophils % ( Manual) 1, Basophils % (Manual) 0, Band Neutrophils 1, Platelet Estimate DecreasedL, Platelet Morphology Normal, Polychromasia 1+, Anisocytosis 2+, Macrocytosis 1+ 07/02/19 03:40: White Blood Count 21.2H, Red Blood Count 2.03L, Hemoglobin 8.4L, Hematocrit 20.5L, Mean Corpuscular Volume 101H, Mean Corpuscular Hemoglobin 41.5H, Mean Corpuscular Hemoglobin Concent 41.0H, Red Cell Distribution Width 20.9H, Platelet Count 56L, Mean Platelet Volume 8.3, Neutrophils (%) (Auto) , Lymphocytes (%) (Auto) , Monocytes (%) (Auto) , Eosinophils (%) (Auto) , Basophils (%) (Auto) , Differential Total Cells Counted 100, Neutrophils % ( Manual) 94H, Lymphocytes % (Manual) 1L, Monocytes % (Manual) 1, Eosinophils % ( Manual) 1, Basophils % (Manual) 0, Band Neutrophils 3, Platelet Estimate DecreasedL, Platelet Morphology Normal, Anisocytosis 2+, Macrocytosis 1+, Sodium Level 140, Potassium Level 3.8, Chloride Level 109H, Carbon Dioxide Level 17L, Blood Urea Nitrogen 80H, Creatinine 1.8H, Estimat Glomerular Filtration Rate 28.0, Glucose Level 369#H, Uric Acid 12.1H, Calcium Level 7.0L, Phosphorus Level 3.0, Magnesium Level 3.1H, Total Bilirubin 2.2H, Direct Bilirubin 1.4H, Gamma Glutamyl Transpeptidase 142H, Aspartate Amino Transf (AST/ SGOT) 41H, Alanine Aminotransferase (ALT/SGPT) 22, Alkaline Phosphatase 135H, Ammonia 93H, Total Protein 5.9L, Albumin 2.8L, Globulin 3.1, Albumin/Globulin Ratio 0.9L Current Medications Medications (Trade) Dose Ordered Sig/[place] Route PRN Reason Start Time Stop Time Status Last Admin Dose Admin Acetaminophen (Tylenol) 500 mg Q6H PRN ORAL MILD/TEMP 07/01/19 02:45 07/18/19 14:33 Allopurinol (allopurinoL) 300 mg DAILY NG 07/01/19 14:30 07/31/19 14:29 07/02/19 08:37 Barium Sulfate (Varibar Honey) 250 ml NOW PRN MC RAD 07/01/19 13:45 07/03/19 13:30 Barium Sulfate (Varibar [place]) 240 ml NOW PRN MC RAD 07/01/19 13:45 07/03/19 13:30 Barium Sulfate (Varibar Pudding) 230 ml NOW PRN MC RAD 07/01/19 13:45 07/03/19 13:30 Barium Sulfate (Varibar Thin Liquid powder) 148 gm NOW PRN MC RAD 07/01/19 13:45 07/03/19 13:30 Ceftriaxone Sodium 1 gm/ Dextrose 55 ml @ 110 mls/hr Q24H IVPB 07/01/19 19:30 07/07/19 19:29 07/01/19 19:50 Dextrose (Dextrose 50%) 25 ml Q30M PRN IV Hypoglycemia 06/30/19 21:45 09/17/19 14:33 Dextrose (Dextrose 50%) 50 ml Q30M PRN IV Hypoglycemia 06/30/19 21:45 09/17/19 09:44 Dextrose/Sodium Chloride 1,000 ml @ 75 mls/hr [id number] IV 07/01/19 13:13 07/31/19 13:12 07/02/19 04:48 Insulin Aspart (NovoLOG) BEFORE MEALS AND HS SUBQ 07/01/19 06:30 09/17/19 11:29 07/02/19 05:54 Lactulose (Cephulac) 20 gm THREE TIMES A DAY NG 07/01/19 09:00 07/26/19 08:59 07/02/19 08:37 Midodrine (Pro-Amatine) 10 mg THREE TIMES A DAY NG 07/01/19 09:00 09/25/19 12:59 07/02/19 08:37 Naloxone HCl (Narcan) 0.2 mg Q2M PRN IVP respiratory depression 06/30/19 21:45 09/18/19 11:59 Norepinephrine Bitartrate 4 mg/ Dextrose 250 ml @ 0 mls/hr Q24H IV 06/30/19 22:30 07/30/19 22:29 07/01/19 21:13 Olanzapine (ZyPREXA) 5 mg BID PRN ORAL agitation 07/02/19 01:15 08/16/19 01:14 Ondansetron HCl (Zofran) 4 mg Q6H PRN IVP Nausea & Vomiting 07/02/19 10:00 08/01/19 09:59 Pantoprazole (Protonix) 40 mg Q12HR IVP 07/01/19 09:00 07/23/19 08:59 07/02/19 08:37 Trip Martines MD Jul 02, 2019 11:06
--- NOTE | 2019-07-02 11:14 | Hematology/Onc Progress Note ---
Assessment/Plan Assessment/Plan Assessment and Recs # 7.7 cm left lobe hepatic mass is concerning for hepatocellular carcinoma, particularly given cirrhosis. A large metastasis is also possible. Consider multiphase hepatic protocol MRI. --> also imaging revealed Right renal hypodensities that are too small to characterize. --> seen by gi and surg --> tumor markers show afp 155, cea 26, ca19.9 1660 --> if afp >200, likely hcc, may still need mri --> at this time, given poor prognosis, would recommend no biopsy --> agree with gi is likely cholangio v hcc v pancreatic with mets --> HOSPICE RECOMMENDED AND [facility], they in agreement # Pancytopenia -- multiple etiologies and in this case is related to cirrhosis --> peripheral smear has been ordered and does not show significant abnormalities --> Medications have been reviewed --> Continue to monitor for improvement, trend cbc --> Hep panel and HIV NEGATIVE --> US abd ordered to r/o cirrhosis and hepatosplenomegaly --> DOES SHOW SPLENOMEGALY AND CIRRHOSIS++ --> reverse isolation if ANC is <2000 --> Give neupogen if ANC <1000 --> Transfuse if hgb <7 --> plt 113-->51-->34k-->61-->66->56 --> rbc: 2 units 06/26/2019 --> continue on psych meds olanazapine # FTT may need nutrition support --> when off iso may need peg --> abx: ceftriaxone --> alia positive # Coagulopathy - Cirrhosis, ? etiology --> likely will need ffp and vit k if bleeds --> likely to be a chronic issue with cirrhosis # Abd distention, likely ascites --> also r/o COVID-->NEG --> isolation --> s/p para # Dysphagia with ng++ # Dvt ppx scds The timing of this note does not necessarily reflect the time of the patient was seen. Greatly appreciate consultation. Subjective Cardiovascular: Denies: no symptoms, chest pain, edema, irregular heart rate, lightheadedness, palpitations, syncope, other Respiratory: Denies: no symptoms, cough, shortness of breath, SOB with excertion, SOB at rest, sputum, wheezing, other Gastrointestinal/Abdominal: Denies: no symptoms, abdomen distended, abdominal pain, black stools, tarry stools, blood in stool, constipated, diarrhea, difficulty swallowing, nausea, poor appetite, poor fluid intake, rectal bleeding , vomiting, other Genitourinary: Denies: no symptoms, burning, discharge, frequency, flank pain, hematuria, incontinence, pain, urgency, other Neurologic/Psychiatric: Denies: no symptoms, anxiety, depressed, emotional problems, headache, numbness, paresthesia, pre-existing deficit, seizure, tingling, tremors, weakness, other Endocrine: Denies: no symptoms, excessive sweating, flushing, intolerance to cold, intolerance to heat, increased hunger, increased thirst, increased urine, unexplained weight gain, unexplained weight loss, other Allergies: Coded Allergies: PENICILLINS (Verified Allergy, Unknown, 06/18/19) Subjective 06/20 no events, no bleeding, tumor markers still pending, imaging noted 06/21 still somewhat confused this am, trying to crawl out of bed, no bleeding or chills 06/22 seen by gi for peg when off iso, no bleeding, plt 118k 06/23 no events, no bleeding, labs noted, cbc reviewed, no night sweats, uncomfortable still 06/24 covid 19 negative, labs reviewed, afebrile, on ceftriaxone 06/26 s/p 2 units rbc, hgb 8.9, stool ob negative, on abx 06/27 plt are low, remains guarded, prognosis is poor, dw gi 06/28 confused, restraints, labs reviewed, nc 2l 06/29 no major changes, remains confused, with restraitns, labs noted 06/30 no events, no bleeding, no f/c, no night sweats, labs noted hgb 8.2, remains agitated 07/01 remains critically ill, no major events, no night sweats, labs noted, on hospice Objective Objective Current Medications Medications (Trade) Dose Ordered Sig/Idalia Route PRN Reason Start Time Stop Time Status Last Admin Dose Admin Acetaminophen (Tylenol) 500 mg Q6H PRN ORAL MILD/TEMP 07/01/19 02:45 07/18/19 14:33 Allopurinol (allopurinoL) 300 mg DAILY NG 07/01/19 14:30 07/31/19 14:29 07/02/19 08:37 Barium Sulfate (Varibar Honey) 250 ml NOW PRN MC RAD 07/01/19 13:45 07/03/19 13:30 Barium Sulfate (Varibar Jolly) 240 ml NOW PRN MC RAD 07/01/19 13:45 07/03/19 13:30 Barium Sulfate (Varibar Pudding) 230 ml NOW PRN MC RAD 07/01/19 13:45 07/03/19 13:30 Barium Sulfate (Varibar Thin Liquid powder) 148 gm NOW PRN MC RAD 07/01/19 13:45 07/03/19 13:30 Ceftriaxone Sodium 1 gm/ Dextrose 55 ml @ 110 mls/hr Q24H IVPB 07/01/19 19:30 07/07/19 19:29 07/01/19 19:50 Dextrose (Dextrose 50%) 25 ml Q30M PRN IV Hypoglycemia 06/30/19 21:45 09/17/19 14:33 Dextrose (Dextrose 50%) 50 ml Q30M PRN IV Hypoglycemia 06/30/19 21:45 09/17/19 09:44 Dextrose/Sodium Chloride 1,000 ml @ 75 mls/hr [id number] IV 07/01/19 13:13 07/31/19 13:12 07/02/19 04:48 Insulin Aspart (NovoLOG) BEFORE MEALS AND HS SUBQ 07/01/19 06:30 09/17/19 11:29 07/02/19 05:54 Lactulose (Cephulac) 20 gm THREE TIMES A DAY NG 07/01/19 09:00 07/26/19 08:59 07/02/19 08:37 Midodrine (Pro-Amatine) 10 mg THREE TIMES A DAY NG 07/02/19 13:00 09/30/19 12:59 Naloxone HCl (Narcan) 0.2 mg Q2M PRN IVP respiratory depression 06/30/19 21:45 09/18/19 11:59 Norepinephrine Bitartrate 4 mg/ Dextrose 250 ml @ 0 mls/hr Q24H IV 06/30/19 22:30 07/30/19 22:29 07/01/19 21:13 Olanzapine (ZyPREXA) 5 mg BID PRN ORAL agitation 07/02/19 01:15 08/16/19 01:14 Ondansetron HCl (Zofran) 4 mg Q6H PRN IVP Nausea & Vomiting 07/02/19 10:00 08/01/19 09:59 Pantoprazole (Protonix) 40 mg Q12HR IVP 07/01/19 09:00 07/23/19 08:59 07/02/19 08:37 Last 24 Hour Vital Signs Date Time Temp Pulse Resp B/P (MAP) Pulse Ox O2 Delivery O2 Flow Rate FiO2 07/02/19 11:00 108 16 108/46 (66) 100 07/02/19 10:30 109 19 105/55 (72) 100 07/02/19 10:15 112 16 99/59 (72) 100 07/02/19 10:00 101 13 77/54 (62) 100 07/02/19 09:30 111 17 100/52 (68) 100 07/02/19 09:00 112 19 117/59 (78) 100 07/02/19 08:45 122 24 133/54 (80) 96 07/02/19 08:30 107 17 112/53 (72) 100 07/02/19 08:15 105 17 111/54 (73) 100 07/02/19 08:00 98.5 113 15 112/37 (62) 100 07/02/19 07:30 108 15 100/44 (62) 100 07/02/19 07:00 105 15 93/48 (63) 100 07/02/19 06:30 76 14 99/64 (76) 100 07/02/19 06:15 105 14 115/49 (71) 100 07/02/19 06:00 99/46 07/02/19 06:00 105 15 95/58 (70) 07/02/19 05:45 112 16 104/46 (65) 100 07/02/19 05:30 115 15 109/37 (61) 100 07/02/19 05:15 124 20 115/24 (54) 100 07/02/19 05:00 117 17 124/48 (73) 100 07/02/19 05:00 115/49 07/02/19 04:45 112 14 116/40 (65) 100 07/02/19 04:30 106 17 114/55 (74) 99 07/02/19 04:15 114 16 122/46 (71) 100 07/02/19 04:00 115/40 07/02/19 04:00 98.5 113 16 120/52 (74) 95 07/02/19 03:45 110 15 109/45 (66) 100 07/02/19 03:30 107 16 104/56 (72) 100 07/02/19 03:15 107 16 112/53 (72) 98 07/02/19 03:00 109 16 114/57 (76) 100 07/02/19 03:00 112/53 07/02/19 02:45 113 17 131/50 (77) 100 07/02/19 02:30 104 16 112/60 (77) 100 07/02/19 02:00 111 17 124/43 (70) 99 07/02/19 02:00 97/48 07/02/19 01:30 110 15 120/51 (74) 100 07/02/19 01:00 114/61 07/02/19 01:00 106 15 138/50 (79) 100 07/02/19 00:30 73 130/46 (74) 07/02/19 00:00 98.4 99 16 109/56 (73) 100 07/02/19 00:00 128/52 07/01/19 23:30 109 14 125/46 (72) 100 07/01/19 23:00 108 13 121/87 (98) 100 07/01/19 23:00 132/56 07/01/19 22:30 110 16 127/46 (73) 100 07/01/19 22:00 93 12 116/36 (62) 100 07/01/19 22:00 132/65 07/01/19 21:30 104 14 119/40 (66) 100 07/01/19 21:15 107 19 108/48 (68) 100 07/01/19 21:13 105/45 07/01/19 21:00 132/65 07/01/19 21:00 103 15 105/45 (65) 100 07/01/19 20:30 84 11 110/38 (62) 100 07/01/19 20:00 98.4 100 13 117/50 (72) 100 07/01/19 20:00 127/64 07/01/19 19:00 97 18 115/42 (66) 100 07/01/19 19:00 111/39 07/01/19 18:30 87 12 114/45 (68) 100 07/01/19 18:15 95 12 110/28 (55) 100 07/01/19 18:00 87 14 108/77 (87) 100 07/01/19 18:00 108/77 07/01/19 17:45 91 12 100/36 (57) 100 07/01/19 17:30 85 11 102/40 (60) 100 07/01/19 17:15 97 17 100/37 (58) 100 07/01/19 17:00 117/43 07/01/19 17:00 89 13 117/43 (67) 100 07/01/19 16:45 94 13 109/34 (59) 100 07/01/19 16:30 98 13 108/66 (80) 100 07/01/19 16:15 82 11 91/73 (79) 100 07/01/19 16:00 114/46 07/01/19 16:00 97.6 89 10 114/46 (68) 100 07/01/19 15:45 84 11 110/43 (65) 100 07/01/19 15:30 91 13 123/36 (65) 100 07/01/19 15:15 85 13 102/39 (60) 100 07/01/19 15:00 90 12 121/43 (69) 100 07/01/19 15:00 121/43 07/01/19 14:45 116/56 07/01/19 14:45 88 14 116/56 (76) 100 07/01/19 14:30 58/24 07/01/19 14:30 89 15 97/60 (72) 100 07/01/19 14:15 86 12 91/35 (53) 100 07/01/19 14:15 91/35 07/01/19 14:00 102/33 07/01/19 14:00 92 15 102/33 (56) 100 07/01/19 13:45 93 12 100/42 (61) 100 07/01/19 13:41 89 12 99/50 (66) 100 07/01/19 13:30 98 13 100/30 (53) 100 07/01/19 13:30 99/50 07/01/19 13:15 101 16 91/32 (51) 100 07/01/19 13:00 105 19 121/60 (80) 100 4/9/20 12:30 110 20 133/74 (93) 100 07/01/19 12:00 111 19 137/73 (94) 100 07/01/19 12:00 108 07/01/19 12:00 Nasal Cannula 2.0 07/01/19 11:30 97.7 112 20 126/71 (89) 100 07/01/19 11:20 141/53 07/01/19 11:00 136/58 07/01/19 11:00 108 17 134/56 (82) 100 07/01/19 10:30 104 14 121/67 (85) 100 07/01/19 10:00 121/74 07/01/19 10:00 104 15 121/74 (90) 100 07/01/19 09:30 95 14 130/65 (86) 100 07/01/19 09:00 95 14 130/65 (86) 100 07/01/19 09:00 121/74 07/01/19 08:30 102 17 114/51 (72) 100 07/01/19 08:00 130/65 07/01/19 08:00 Nasal Cannula 2.0 07/01/19 08:00 97.6 07/01/19 08:00 102 17 114/51 (72) 100 07/01/19 08:00 100 07/01/19 07:30 89 12 106/41 (62) 100 07/01/19 07:00 120/36 07/01/19 07:00 97 14 113/46 (68) 100 07/01/19 06:47 102/53 07/01/19 06:45 97 14 118/45 (69) 100 07/01/19 06:30 89 12 102/53 (69) 100 07/01/19 06:15 93 13 117/70 (86) 100 07/01/19 06:15 93 13 117/70 (86) 100 07/01/19 06:00 110/36 07/01/19 06:00 95 14 110/35 (60) 100 07/01/19 05:45 96 15 94/44 (61) 94 07/01/19 05:30 93 13 105/45 (65) 100 07/01/19 05:15 95 16 113/38 (63) 100 07/01/19 05:00 99 17 98/40 (59) 95 07/01/19 05:00 98/40 07/01/19 04:45 88 17 119/46 (70) 95 07/01/19 04:30 104 17 119/46 (70) 95 07/01/19 04:15 109 16 146/132 (137) 87 07/01/19 04:00 139/44 07/01/19 04:00 Nasal Cannula 2.0 07/01/19 04:00 97.8 98 139/44 (75) 84 07/01/19 03:45 93 119/76 (90) 94 07/01/19 03:30 91 105/48 (67) 100 07/01/19 03:15 105 125/69 (87) 100 07/01/19 03:00 119/58 07/01/19 03:00 97 14 119/58 (78) 100 07/01/19 02:30 94 106/43 (64) 100 07/01/19 02:00 94 109/44 (65) 100 07/01/19 02:00 113/40 07/01/19 01:00 96/43 07/01/19 00:45 87 92/41 (58) 100 07/01/19 00:30 89 94/41 (58) 100 07/01/19 00:15 88 97/42 (60) 100 07/01/19 00:00 Nasal Cannula 2.0 07/01/19 00:00 95/56 07/01/19 00:00 97.8 89 93/38 (56) 100 07/01/19 00:00 Nasal Cannula 2.0 06/30/19 23:45 91 101/38 (59) 100 06/30/19 23:15 88 14 94/44 (61) 100 06/30/19 23:00 90/46 06/30/19 23:00 94 12 93/37 (55) 100 06/30/19 22:45 94 12 90/50 (63) 100 06/30/19 22:30 86/46 06/30/19 22:30 97 17 93/42 (59) 93 06/30/19 22:15 89 14 94/40 (58) 06/30/19 22:00 88 13 85/38 (54) 100 06/30/19 21:45 89 13 86/45 (59) 100 06/30/19 21:30 90 13 80/40 (53) 100 06/30/19 21:28 89 13 87/40 (56) 100 06/30/19 21:15 97.4 94 17 86/84 (85) 100 06/30/19 21:00 Nasal Cannula 2.0 06/30/19 20:53 91 14 86/48 (61) 06/30/19 20:00 98.3 91 14 90/49 (63) 100 06/30/19 16:00 97.3 90 16 93/51 (65) 97 Intake and Output 07/01/19 07/02/19 19:00 07:00 Intake Total 1219.375 ml 1602.75 ml Output Total 66574 ml 94073 ml Balance -43107.625 ml -71481.25 ml Free Water 60 ml IV Total 1129.375 ml 1022.75 ml Tube Feeding 60 ml 520 ml Other 30 ml Output Urine Total 303 ml 195 ml Other 72244 ml 81380 ml # Voids 2 Labs Test 06/30/19 05:39 06/30/19 20:39 06/30/19 20:50 07/01/19 04:00 White Blood Count 15.0 K/UL (4.8-10.8) 18.0 K/UL (4.8-10.8) Red Blood Count 2.21 M/UL (4.20-5.40) 2.46 M/UL (4.20-5.40) Hemoglobin 9.9 G/DL (12.0-16.0) 8.2 G/DL (12.0-16.0) Hematocrit 22.4 % (37.0-47.0) 24.4 % (37.0-47.0) Mean Corpuscular Volume 101 FL (80-99) 99 FL (80-99) Mean Corpuscular Hemoglobin 44.7 PG (27.0-31.0) 33.2 PG (27.0-31.0) Mean Corpuscular Hemoglobin Concent 44.3 G/DL (32.0-36.0) 33.0 G/DL (32.0-36.0) Red Cell Distribution Width 22.2 % (11.6-14.8) 20.7 % (11.6-14.8) Platelet Count 66 K/UL (150-450) 83 K/UL (150-450) Mean Platelet Volume 6.2 FL (6.5-10.1) 6.5 FL (6.5-10.1) Neutrophils (%) (Auto) % (45.0-75.0) % (45.0-75.0) Lymphocytes (%) (Auto) % (20.0-45.0) % (20.0-45.0) Monocytes (%) (Auto) % (1.0-10.0) % (1.0-10.0) Eosinophils (%) (Auto) % (0.0-3.0) % (0.0-3.0) Basophils (%) (Auto) % (0.0-2.0) % (0.0-2.0) Neutrophils % (Manual) 83 % (45-75) 83 % (45-75) Lymphocytes % (Manual) 8 % (20-45) 7 % (20-45) Monocytes % (Manual) 7 % (1-10) 8 % (1-10) Eosinophils % (Manual) 2 % (0-3) 1 % (0-3) Basophils % (Manual) 0 % (0-2) 1 % (0-2) Band Neutrophils 0 % (0-8) 0 % (0-8) Platelet Estimate Decreased Decreased Platelet Morphology Normal Normal Hypochromasia 2+ 2+ Anisocytosis 2+ 2+ Macrocytosis 1+ Sodium Level 148 MMOL/L (136-145) 147 MMOL/L (136-145) Potassium Level 5.0 MMOL/L (3.5-5.1) 4.6 MMOL/L (3.5-5.1) Chloride Level 116 MMOL/L (98-107) 115 MMOL/L (98-107) Carbon Dioxide Level 19 MMOL/L (21-32) 20 MMOL/L (21-32) Anion Gap 13 mmol/L (5-15) 12 mmol/L (5-15) Blood Urea Nitrogen 82 mg/dL (7-18) 91 mg/dL (7-18) Creatinine 1.4 MG/DL (0.55-1.30) 1.8 MG/DL (0.55-1.30) Estimat Glomerular Filtration Rate 37.5 mL/min (>60) 28.0 mL/min (>60) Glucose Level 167 MG/DL (74-106) 248 MG/DL (74-106) Calcium Level 8.3 MG/DL (8.5-10.1) 7.7 MG/DL (8.5-10.1) Total Bilirubin 2.7 MG/DL (0.2-1.0) 2.6 MG/DL (0.2-1.0) Direct Bilirubin 1.6 MG/DL (0.0-0.3) 1.5 MG/DL (0.0-0.3) Aspartate Amino Transf (AST/SGOT) 38 U/L (15-37) 29 U/L (15-37) Alanine Aminotransferase (ALT/SGPT) 15 U/L (12-78) 14 U/L (12-78) Alkaline Phosphatase 159 U/L (46-116) 138 U/L (46-116) Total Protein 6.3 G/DL (6.4-8.2) 6.2 G/DL (6.4-8.2) Albumin 2.5 G/DL (3.4-5.0) 2.9 G/DL (3.4-5.0) Globulin 3.8 g/dL 3.3 g/dL Albumin/Globulin Ratio 0.7 (1.0-2.7) 0.9 (1.0-2.7) Arterial Blood pH 7.412 (7.350-7.450) Arterial Blood Partial Pressure CO2 28.8 mmHg (35.0-45.0) Arterial Blood Partial Pressure O2 146.9 mmHg (75.0-100.0) Arterial Blood HCO3 17.9 mmol/L (22.0-26.0) Arterial Blood Oxygen Saturation 98.9 % (95-100) Arterial Blood Base Excess -5.7 (-2-2) Sascha Test Positive Ammonia 24 umol/L (11-32) 39 umol/L (11-32) Differential Total Cells Counted 100 Prothrombin Time 14.5 SEC (9.30-11.50) Prothromb Time International Ratio 1.4 (0.9-1.1) Activated Partial Thromboplast Time 33 SEC (23-33) D-Dimer 13.01 mg/L FEU (0.00-0.49) Lactic Acid Level 1.80 mmol/L (0.4-2.0) Uric Acid 13.9 MG/DL (2.6-7.2) Phosphorus Level 5.3 MG/DL (2.5-4.9) Ferritin 160 NG/ML (8-388) Gamma Glutamyl Transpeptidase 152 U/L (5-85) Lactate Dehydrogenase 257 U/L (81-234) Troponin I 0.008 ng/mL (0.000-0.056) C-Reactive Protein, Quantitative 7.2 mg/dL (0.00-0.90) Pro-B-Type Natriuretic Peptide 255 pg/mL (0-125) Test 07/01/19 08:24 07/01/19 14:43 07/02/19 03:40 Arterial Blood pH 7.393 (7.350-7.450) Arterial Blood Partial Pressure CO2 34.2 mmHg (35.0-45.0) Arterial Blood Partial Pressure O2 150.9 mmHg (75.0-100.0) Arterial Blood HCO3 20.4 mmol/L (22.0-26.0) Arterial Blood Oxygen Saturation 98.7 % (95-100) Arterial Blood Base Excess -4.0 (-2-2) Sascha Test Positive White Blood Count 15.6 K/UL (4.8-10.8) 21.2 K/UL (4.8-10.8) Red Blood Count 2.20 M/UL (4.20-5.40) 2.03 M/UL (4.20-5.40) Hemoglobin 7.8 G/DL (12.0-16.0) 8.4 G/DL (12.0-16.0) Hematocrit 22.0 % (37.0-47.0) 20.5 % (37.0-47.0) Mean Corpuscular Volume 100 FL (80-99) 101 FL (80-99) Mean Corpuscular Hemoglobin 35.6 PG (27.0-31.0) 41.5 PG (27.0-31.0) Mean Corpuscular Hemoglobin Concent 35.7 G/DL (32.0-36.0) 41.0 G/DL (32.0-36.0) Red Cell Distribution Width 19.7 % (11.6-14.8) 20.9 % (11.6-14.8) Platelet Count 58 K/UL (150-450) 56 K/UL (150-450) Mean Platelet Volume 6.7 FL (6.5-10.1) 8.3 FL (6.5-10.1) Neutrophils (%) (Auto) % (45.0-75.0) % (45.0-75.0) Lymphocytes (%) (Auto) % (20.0-45.0) % (20.0-45.0) Monocytes (%) (Auto) % (1.0-10.0) % (1.0-10.0) Eosinophils (%) (Auto) % (0.0-3.0) % (0.0-3.0) Basophils (%) (Auto) % (0.0-2.0) % (0.0-2.0) Differential Total Cells Counted 100 100 Neutrophils % (Manual) 87 % (45-75) 94 % (45-75) Lymphocytes % (Manual) 6 % (20-45) 1 % (20-45) Monocytes % (Manual) 5 % (1-10) 1 % (1-10) Eosinophils % (Manual) 1 % (0-3) 1 % (0-3) Basophils % (Manual) 0 % (0-2) 0 % (0-2) Band Neutrophils 1 % (0-8) 3 % (0-8) Platelet Estimate Decreased Decreased Platelet Morphology Normal Normal Polychromasia 1+ Anisocytosis 2+ 2+ Macrocytosis 1+ 1+ Sodium Level 140 MMOL/L (136-145) Potassium Level 3.8 MMOL/L (3.5-5.1) Chloride Level 109 MMOL/L (98-107) Carbon Dioxide Level 17 MMOL/L (21-32) Blood Urea Nitrogen 80 mg/dL (7-18) Creatinine 1.8 MG/DL (0.55-1.30) Estimat Glomerular Filtration Rate 28.0 mL/min (>60) Glucose Level 369 MG/DL (74-106) Uric Acid 12.1 MG/DL (2.6-7.2) Calcium Level 7.0 MG/DL (8.5-10.1) Phosphorus Level 3.0 MG/DL (2.5-4.9) Magnesium Level 3.1 MG/DL (1.8-2.4) Total Bilirubin 2.2 MG/DL (0.2-1.0) Direct Bilirubin 1.4 MG/DL (0.0-0.3) Gamma Glutamyl Transpeptidase 142 U/L (5-85) Aspartate Amino Transf (AST/SGOT) 41 U/L (15-37) Alanine Aminotransferase (ALT/SGPT) 22 U/L (12-78) Alkaline Phosphatase 135 U/L (46-116) Ammonia 93 umol/L (11-32) Total Protein 5.9 G/DL (6.4-8.2) Albumin 2.8 G/DL (3.4-5.0) Globulin 3.1 g/dL Albumin/Globulin Ratio 0.9 (1.0-2.7) Height (Feet): 5 Height (Inches): 3.00 Weight (Pounds): 143 Objective Physical Exam: Vitals: reviewed General: NAD HEENT: nc, at, NG+ Neck: supple Chest: clear breath sounds bilaterally, nc+ Cardiovascular: RRR, no s3, s4 Abdomen: soft, nontender, nd Extremities: no cce, normal range of motion Neuro: alert and oriented : alberto+ Cristobal Staples MD Jul 02, 2019 11:14
--- NOTE | 2019-07-02 11:20 | Nephrology Progress Note ---
Assessment/Plan Problem List: (1) LEANDRO (acute kidney injury) Assessment: Serum creatinine was up to 1.9 now back to 1.2 (2) Hyperkalemia (3) Liver cirrhosis (4) Liver mass (5) Anemia Assessment - LEANDRO , serum creatinine chapincito to 1.6, likely multifactorial, due to underlying liver disease, antibiotics, low blood pressure. - Hyperkalemia - Hypoalbuminemia - Cirrhosis, ? etiology - Large liver mass, suspect CA - poor Px - lung nodules - abd distention, likely ascites - r/o COVID -FTT -Anemia -UTI -DM -gallstones Plan Patient in ICU now after developed hypotension and became severely lethargic on psych medications Today blood pressure is maintained off levophed and on midodrine Psych medication is now stopped renal parameters somewhat worsened, serum creatinine is stable at 1.8 today Start allopurinol NG tube feeding IV Protonix Antibiotics per ID Monitor renal parameters Midodrine for low blood pressure patient transfused June 25 Hydration as needed Neal catheter Avoid nephrotoxics Follow-up with renal parameters Urine studies Per orders Poor prognosis-remains full code Can go to monitor bed Subjective ROS Limited/Unobtainable: No Constitutional: Reports: malaise, weakness Objective Objective Last 24 Hour Vital Signs Date Time Temp Pulse Resp B/P (MAP) Pulse Ox O2 Delivery O2 Flow Rate FiO2 07/02/19 11:00 108 16 108/46 (66) 100 07/02/19 10:30 109 19 105/55 (72) 100 07/02/19 10:15 112 16 99/59 (72) 100 07/02/19 10:00 101 13 77/54 (62) 100 07/02/19 09:30 111 17 100/52 (68) 100 07/02/19 09:00 112 19 117/59 (78) 100 07/02/19 08:45 122 24 133/54 (80) 96 07/02/19 08:30 107 17 112/53 (72) 100 07/02/19 08:15 105 17 111/54 (73) 100 07/02/19 08:00 98.5 113 15 112/37 (62) 100 07/02/19 07:30 108 15 100/44 (62) 100 07/02/19 07:00 105 15 93/48 (63) 100 07/02/19 06:30 76 14 99/64 (76) 100 07/02/19 06:15 105 14 115/49 (71) 100 07/02/19 06:00 99/46 07/02/19 06:00 105 15 95/58 (70) 07/02/19 05:45 112 16 104/46 (65) 100 07/02/19 05:30 115 15 109/37 (61) 100 07/02/19 05:15 124 20 115/24 (54) 100 07/02/19 05:00 117 17 124/48 (73) 100 07/02/19 05:00 115/49 07/02/19 04:45 112 14 116/40 (65) 100 07/02/19 04:30 106 17 114/55 (74) 99 07/02/19 04:15 114 16 122/46 (71) 100 07/02/19 04:00 115/40 07/02/19 04:00 98.5 113 16 120/52 (74) 95 07/02/19 03:45 110 15 109/45 (66) 100 07/02/19 03:30 107 16 104/56 (72) 100 07/02/19 03:15 107 16 112/53 (72) 98 07/02/19 03:00 109 16 114/57 (76) 100 07/02/19 03:00 112/53 07/02/19 02:45 113 17 131/50 (77) 100 07/02/19 02:30 104 16 112/60 (77) 100 07/02/19 02:00 111 17 124/43 (70) 99 07/02/19 02:00 97/48 07/02/19 01:30 110 15 120/51 (74) 100 07/02/19 01:00 114/61 07/02/19 01:00 106 15 138/50 (79) 100 07/02/19 00:30 73 130/46 (74) 07/02/19 00:00 98.4 99 16 109/56 (73) 100 07/02/19 00:00 128/52 07/01/19 23:30 109 14 125/46 (72) 100 07/01/19 23:00 108 13 121/87 (98) 100 07/01/19 23:00 132/56 07/01/19 22:30 110 16 127/46 (73) 100 07/01/19 22:00 93 12 116/36 (62) 100 07/01/19 22:00 132/65 07/01/19 21:30 104 14 119/40 (66) 100 07/01/19 21:15 107 19 108/48 (68) 100 07/01/19 21:13 105/45 07/01/19 21:00 132/65 07/01/19 21:00 103 15 105/45 (65) 100 07/01/19 20:30 84 11 110/38 (62) 100 07/01/19 20:00 98.4 100 13 117/50 (72) 100 07/01/19 20:00 127/64 07/01/19 19:00 97 18 115/42 (66) 100 07/01/19 19:00 111/39 07/01/19 18:30 87 12 114/45 (68) 100 07/01/19 18:15 95 12 110/28 (55) 100 07/01/19 18:00 87 14 108/77 (87) 100 07/01/19 18:00 108/77 07/01/19 17:45 91 12 100/36 (57) 100 07/01/19 17:30 85 11 102/40 (60) 100 07/01/19 17:15 97 17 100/37 (58) 100 07/01/19 17:00 117/43 07/01/19 17:00 89 13 117/43 (67) 100 07/01/19 16:45 94 13 109/34 (59) 100 07/01/19 16:30 98 13 108/66 (80) 100 07/01/19 16:15 82 11 91/73 (79) 100 07/01/19 16:00 114/46 07/01/19 16:00 97.6 89 10 114/46 (68) 100 07/01/19 15:45 84 11 110/43 (65) 100 07/01/19 15:30 91 13 123/36 (65) 100 07/01/19 15:15 85 13 102/39 (60) 100 07/01/19 15:00 90 12 121/43 (69) 100 07/01/19 15:00 121/43 07/01/19 14:45 116/56 07/01/19 14:45 88 14 116/56 (76) 100 07/01/19 14:30 58/24 07/01/19 14:30 89 15 97/60 (72) 100 07/01/19 14:15 86 12 91/35 (53) 100 07/01/19 14:15 91/35 07/01/19 14:00 102/33 07/01/19 14:00 92 15 102/33 (56) 100 07/01/19 13:45 93 12 100/42 (61) 100 07/01/19 13:41 89 12 99/50 (66) 100 07/01/19 13:30 98 13 100/30 (53) 100 07/01/19 13:30 99/50 07/01/19 13:15 101 16 91/32 (51) 100 07/01/19 13:00 105 19 121/60 (80) 100 07/01/19 12:30 110 20 133/74 (93) 100 07/01/19 12:00 111 19 137/73 (94) 100 07/01/19 12:00 108 07/01/19 12:00 Nasal Cannula 2.0 07/01/19 11:30 97.7 112 20 126/71 (89) 100 07/01/19 11:20 141/53 Intake and Output 07/01/19 07/02/19 19:00 07:00 Intake Total 1219.375 ml 1602.75 ml Output Total 79807 ml 23323 ml Balance -97222.625 ml -04856.25 ml Free Water 60 ml IV Total 1129.375 ml 1022.75 ml Tube Feeding 60 ml 520 ml Other 30 ml Output Urine Total 303 ml 195 ml Other 48859 ml 33077 ml # Voids 2 Laboratory Tests 07/01/19 14:43: White Blood Count 15.6H, Red Blood Count 2.20L, Hemoglobin 7.8L, Hematocrit 22.0L, Mean Corpuscular Volume 100H, Mean Corpuscular Hemoglobin 35.6H, Mean Corpuscular Hemoglobin Concent 35.7, Red Cell Distribution Width 19.7H, Platelet Count 58L, Mean Platelet Volume 6.7, Neutrophils (%) (Auto) , Lymphocytes (%) (Auto) , Monocytes (%) (Auto) , Eosinophils (%) (Auto) , Basophils (%) (Auto) , Differential Total Cells Counted 100, Neutrophils % ( Manual) 87H, Lymphocytes % (Manual) 6L, Monocytes % (Manual) 5, Eosinophils % ( Manual) 1, Basophils % (Manual) 0, Band Neutrophils 1, Platelet Estimate DecreasedL, Platelet Morphology Normal, Polychromasia 1+, Anisocytosis 2+, Macrocytosis 1+ 07/02/19 03:40: White Blood Count 21.2H, Red Blood Count 2.03L, Hemoglobin 8.4L, Hematocrit 20.5L, Mean Corpuscular Volume 101H, Mean Corpuscular Hemoglobin 41.5H, Mean Corpuscular Hemoglobin Concent 41.0H, Red Cell Distribution Width 20.9H, Platelet Count 56L, Mean Platelet Volume 8.3, Neutrophils (%) (Auto) , Lymphocytes (%) (Auto) , Monocytes (%) (Auto) , Eosinophils (%) (Auto) , Basophils (%) (Auto) , Differential Total Cells Counted 100, Neutrophils % ( Manual) 94H, Lymphocytes % (Manual) 1L, Monocytes % (Manual) 1, Eosinophils % ( Manual) 1, Basophils % (Manual) 0, Band Neutrophils 3, Platelet Estimate DecreasedL, Platelet Morphology Normal, Anisocytosis 2+, Macrocytosis 1+, Sodium Level 140, Potassium Level 3.8, Chloride Level 109H, Carbon Dioxide Level 17L, Blood Urea Nitrogen 80H, Creatinine 1.8H, Estimat Glomerular Filtration Rate 28.0, Glucose Level 369#H, Uric Acid 12.1H, Calcium Level 7.0L, Phosphorus Level 3.0, Magnesium Level 3.1H, Total Bilirubin 2.2H, Direct Bilirubin 1.4H, Gamma Glutamyl Transpeptidase 142H, Aspartate Amino Transf (AST/ SGOT) 41H, Alanine Aminotransferase (ALT/SGPT) 22, Alkaline Phosphatase 135H, Ammonia 93H, Total Protein 5.9L, Albumin 2.8L, Globulin 3.1, Albumin/Globulin Ratio 0.9L Height (Feet): 5 Height (Inches): 3.00 Weight (Pounds): 143 General Appearance: no apparent distress, lethargic Cardiovascular: tachycardia Respiratory/Chest: decreased breath sounds Abdomen: distended Alex Aguilar MD Jul 02, 2019 11:20
[2019-07-02] MEDS: Midodrine 10mg tab NG SCH ×2 (13:10→18:32)
--- NOTE | 2019-07-02 13:31 | NUR ---
INSURANCE REVIEW FAXED TO [facility]#[phone] FAX#[phone] REVIEWS/CLINICALS
--- NOTE | 2019-07-02 13:44 | NUR ---
NURSE NOTES: Gave bed bath to patient and changed central line dressing. Patient showing no signs of acute distress.
--- NOTE | 2019-07-02 13:48 | NUR ---
CASE MANAGEMENT:REVIEW 07/02/2019 SI: PNA. HYPOXIA. DEHYDRATION. Probable metastatic pulmonary disease. HEPATOCELLULAR CARCINOMA. COVID 19 NOT DETECTED VS: T 97.7 HR 105 RR 15 B/P 118/57 SATS 100% ON 2L/NC LABS: WBC 21.2 CL 109 BUN 80 CR 1.8 GLU 369 URIC ACID 12.1 CA 7 PHOS 3.1 TBILI 2.2 DBILI 1.4 GGT 142 AST 41 ALP 135 AMMONIA 93 IS: ZYPREXA PO BID IV PROTONIX QD MIDODRINE PO TID LACTULOSE PO TID INDERAL PO Q8HRS SSI SQ AC+HS : ICU STATUS DCP: FROM [facility] CONV PLAN: TRANSFER TO [facility]
--- NOTE | 2019-07-02 16:33 | Surgery Progress Note ---
Surgery Progress Note Subjective Additional Comments worsening wbc para today 7 l out Objective Last 24 Hour Vital Signs Date Time Temp Pulse Resp B/P (MAP) Pulse Ox O2 Delivery O2 Flow Rate FiO2 07/02/19 15:00 107 15 117/62 (80) 100 07/02/19 14:30 110 15 137/66 (89) 100 07/02/19 14:00 101 14 121/69 (86) 100 07/02/19 13:30 110 20 145/68 (93) 100 07/02/19 13:00 108 15 107/43 (64) 100 07/02/19 12:30 100 14 97/53 (68) 99 07/02/19 12:00 97.7 105 15 118/57 (77) 100 07/02/19 11:31 103 07/02/19 11:30 98 16 92/47 (62) 97 07/02/19 11:00 108 16 108/46 (66) 100 07/02/19 10:30 109 19 105/55 (72) 100 07/02/19 10:15 112 16 99/59 (72) 100 07/02/19 10:00 101 13 77/54 (62) 100 07/02/19 09:30 111 17 100/52 (68) 100 07/02/19 09:00 112 19 117/59 (78) 100 07/02/19 08:45 122 24 133/54 (80) 96 07/02/19 08:30 107 17 112/53 (72) 100 07/02/19 08:15 105 17 111/54 (73) 100 07/02/19 08:00 98.5 113 15 112/37 (62) 100 07/02/19 08:00 111/54 07/02/19 07:54 113 07/02/19 07:30 108 15 100/44 (62) 100 07/02/19 07:00 105 15 93/48 (63) 100 07/02/19 07:00 113/48 07/02/19 07:00 100 Nasal Cannula 2.0 28 07/02/19 06:30 76 14 99/64 (76) 100 07/02/19 06:15 105 14 115/49 (71) 100 07/02/19 06:00 99/46 07/02/19 06:00 105 15 95/58 (70) 07/02/19 05:45 112 16 104/46 (65) 100 07/02/19 05:30 115 15 109/37 (61) 100 07/02/19 05:15 124 20 115/24 (54) 100 07/02/19 05:00 117 17 124/48 (73) 100 07/02/19 05:00 115/49 07/02/19 04:45 112 14 116/40 (65) 100 07/02/19 04:30 106 17 114/55 (74) 99 07/02/19 04:15 114 16 122/46 (71) 100 07/02/19 04:00 115/40 07/02/19 04:00 98.5 113 16 120/52 (74) 95 07/02/19 03:45 110 15 109/45 (66) 100 07/02/19 03:30 107 16 104/56 (72) 100 07/02/19 03:15 107 16 112/53 (72) 98 07/02/19 03:00 109 16 114/57 (76) 100 07/02/19 03:00 112/53 07/02/19 02:45 113 17 131/50 (77) 100 07/02/19 02:30 104 16 112/60 (77) 100 07/02/19 02:00 111 17 124/43 (70) 99 07/02/19 02:00 97/48 07/02/19 01:30 110 15 120/51 (74) 100 07/02/19 01:00 114/61 07/02/19 01:00 106 15 138/50 (79) 100 07/02/19 00:30 73 130/46 (74) 07/02/19 00:00 98.4 99 16 109/56 (73) 100 07/02/19 00:00 128/52 07/01/19 23:30 109 14 125/46 (72) 100 07/01/19 23:00 108 13 121/87 (98) 100 07/01/19 23:00 132/56 07/01/19 22:30 110 16 127/46 (73) 100 07/01/19 22:00 93 12 116/36 (62) 100 07/01/19 22:00 132/65 07/01/19 21:30 104 14 119/40 (66) 100 07/01/19 21:15 107 19 108/48 (68) 100 07/01/19 21:13 105/45 07/01/19 21:00 132/65 07/01/19 21:00 103 15 105/45 (65) 100 07/01/19 20:30 84 11 110/38 (62) 100 07/01/19 20:00 98.4 100 13 117/50 (72) 100 07/01/19 20:00 127/64 07/01/19 19:00 97 18 115/42 (66) 100 07/01/19 19:00 111/39 07/01/19 18:30 87 12 114/45 (68) 100 07/01/19 18:15 95 12 110/28 (55) 100 07/01/19 18:00 87 14 108/77 (87) 100 07/01/19 18:00 108/77 07/01/19 17:45 91 12 100/36 (57) 100 07/01/19 17:30 85 11 102/40 (60) 100 07/01/19 17:15 97 17 100/37 (58) 100 07/01/19 17:00 117/43 07/01/19 17:00 89 13 117/43 (67) 100 07/01/19 16:45 94 13 109/34 (59) 100 I&O Intake and Output 07/01/19 07/02/19 19:00 07:00 Intake Total 1219.375 ml 1681.50 ml Output Total 62530 ml 61024 ml Balance -74334.625 ml -77081.50 ml Free Water 60 ml IV Total 1129.375 ml 1101.50 ml Tube Feeding 60 ml 520 ml Other 30 ml Output Urine Total 303 ml 195 ml Other 30766 ml 09780 ml # Voids 2 Dressing: other Wound: other Drains: other Cardiovascular: RSR Respiratory: decreased breath sounds Abdomen: soft, distended, tenderness, decreased bowel sounds Extremities: no tenderness, no cyanosis, other Laboratory Tests Test 07/02/19 03:40 White Blood Count 21.2 K/UL (4.8-10.8) H Red Blood Count 2.03 M/UL (4.20-5.40) L Hemoglobin 8.4 G/DL (12.0-16.0) L Hematocrit 20.5 % (37.0-47.0) L Mean Corpuscular Volume 101 FL (80-99) H Mean Corpuscular Hemoglobin 32.9 PG (27.0-31.0) H Mean Corpuscular Hemoglobin Concent 32.2 G/DL (32.0-36.0) Red Cell Distribution Width 20.9 % (11.6-14.8) H Platelet Count 56 K/UL (150-450) L Mean Platelet Volume 8.3 FL (6.5-10.1) Neutrophils (%) (Auto) % (45.0-75.0) Lymphocytes (%) (Auto) % (20.0-45.0) Monocytes (%) (Auto) % (1.0-10.0) Eosinophils (%) (Auto) % (0.0-3.0) Basophils (%) (Auto) % (0.0-2.0) Differential Total Cells Counted 100 Neutrophils % (Manual) 94 % (45-75) H Lymphocytes % (Manual) 1 % (20-45) L Monocytes % (Manual) 1 % (1-10) Eosinophils % (Manual) 1 % (0-3) Basophils % (Manual) 0 % (0-2) Band Neutrophils 3 % (0-8) Platelet Estimate Decreased L Platelet Morphology Normal Anisocytosis 2+ Macrocytosis 1+ Sodium Level 140 MMOL/L (136-145) Potassium Level 3.8 MMOL/L (3.5-5.1) Chloride Level 109 MMOL/L (98-107) H Carbon Dioxide Level 17 MMOL/L (21-32) L Blood Urea Nitrogen 80 mg/dL (7-18) H Creatinine 1.8 MG/DL (0.55-1.30) H Estimat Glomerular Filtration Rate 28.0 mL/min (>60) Glucose Level 369 MG/DL (74-106) #H Uric Acid 12.1 MG/DL (2.6-7.2) H Calcium Level 7.0 MG/DL (8.5-10.1) L Phosphorus Level 3.0 MG/DL (2.5-4.9) Magnesium Level 3.1 MG/DL (1.8-2.4) H Total Bilirubin 2.2 MG/DL (0.2-1.0) H Direct Bilirubin 1.4 MG/DL (0.0-0.3) H Gamma Glutamyl Transpeptidase 142 U/L (5-85) H Aspartate Amino Transf (AST/SGOT) 41 U/L (15-37) H Alanine Aminotransferase (ALT/SGPT) 22 U/L (12-78) Alkaline Phosphatase 135 U/L (46-116) H Ammonia 93 umol/L (11-32) H Total Protein 5.9 G/DL (6.4-8.2) L Albumin 2.8 G/DL (3.4-5.0) L Globulin 3.1 g/dL Albumin/Globulin Ratio 0.9 (1.0-2.7) L Plan Problems: (1) Abdominal pain Assessment & Plan: [age]-year-old female multiple medical comorbidities presented with abdominal discomfort noted to have abnormal LFTs leukocytosis. CT reviewed liver cirrhotic and there is a mass. Possibly carcinoma likely. HCC. Abdominal exam without peritonitis no acute surgical intervention indicated recommended at this time supportive treatment. Will follow with recommendations thank you tumor markers show afp 155, cea 26, ca19.9 1660 Consider comfort care/hospice can consider biopsy for diagnosis but unfortunately will unlikely help as advanced disease and given differential likely terminal Will follow with recommendations Covid results negative Lower thorax: Unremarkable lung bases. Intraperitoneal space: No free air. Gastrointestinal tract: Unremarkable. No dilation. Bones/joints: Degenerative spine findings and osteopenia. Tubes, lines and devices: Enteric tube with tip and proximal sideport below the gastroesophageal junction. IMPRESSION: 1. Enteric tube with tip and proximal sideport below the gastroesophageal junction. 2. Unremarkable lung bases. 3. No acute abnormality definitively seen. GI placed feeding tube cont feeds as tolerated severe anemia - gi blood loss? transfuse as per heme trend s/p para will monitor exam Thank you Pt presented on admission with multiple skin breakdown. Non-blanching erythema without induration.(L)7cm x (W)9cm . L heel is boggy with non-blanchable erythema(L)5.5cm x (W)4.5cm. R heel is boggy with non-blanchable erythema(L)6cm x (W)5.3cm. Pt did not exhibit any distress to indicate pain when each heel individually palpated. Tx.Plan: Apply Moisture Barrier Paste to Sacrum. Cover with Optifoam drsg. Change every 3 days and prn. Apply Cavilon Skin Barrier to both Heels. Cover each Heel with Optifoam drsg. change every 7 days and prn. Reposition at least every 2hours or as tolerated. Off-load heels with pillow. The liver is cirrhotic. There is evidence of portal hypertension including splenomegaly and gastric varices. There is a mass in the left lobe, primarily in the lateral segments, but also extending medially. This measures 7.7 x 5 x 4.8 cm in greatest transverse, anteroposterior, and craniocaudal dimensions respectively. This is hypodense/hypoenhancing compared to relatively normal adjacent parenchyma in the portal venous phase. This could reflect early washout of a hepatocellular carcinoma, particularly given cirrhosis. A large metastasis is also possible. Cholelithiasis. 2.2 cm densely calcified stone in the dependent gallbladder. No biliary ductal dilation. Both kidneys demonstrate multiple hypodense lesions, which are too small to characterize. No hydronephrosis. There is no bowel obstruction or perforation. The appendix is not well seen. Leftward pelvic calcification may reflect a subserosal uterine fibroid. No abdominal aortic aneurysm. No acute fracture. IMPRESSION: 7.7 cm left lobe hepatic mass is concerning for hepatocellular carcinoma, particularly given cirrhosis. A large metastasis is also possible. Consider multiphase hepatic protocol MRI. Right renal hypodensities that are too small to characterize. Cholelithiasis. code status changed hospice please para for comfort today she is very very distended and firm from fluid Technique: Ultrasound used to localize optimal puncture site. Sterile prepping and draping right lower quadrant. Local anesthesia with 1% lidocaine. Under real- time ultrasound guidance, puncture peritoneal space using paracentesis needle. Stylet removed. Catheter placed to vacuum bottle suction. Total 7 liters of bloody fluid aspirated. Patient tolerated procedure well, without immediate complication. Findings: Followup sonography demonstrates complete resolution of peritoneal fluid. Impression: Successful ultrasound-guided paracentesis, yielding 7 liters of fluid [place] Jul 02, 2019 16:33
--- NOTE | 2019-07-02 16:52 | NUR ---
NURSE NOTES: Patient vomited approximately 30ml, PRN Zofran was given. Oral care and suctioning given. NGT feeding turned off. Dr. Childers made aware.
[2019-07-02] MEDS: cefTRIAXone 1 GM in D5W 55 ML IVPB SCH (18:32)
--- NOTE | 2019-07-02 19:12 | NUR ---
TRANSFER TO FLOOR: Patient transferred to Telemetry, per Lauren. Report given to Marie RN. Belongings and medications given to oncoming nurse. Family and or S/O informed of transfer.
--- NOTE | 2019-07-02 19:15 | NUR ---
NURSE NOTES: received patient Obtunded. HOB elevated. personal belongings noted. skin is intact. no acute resp distress noted. IV access noted. will cont to monitor.
[2019-07-02] MEDS ORDERED: Naloxone 0.4mg/ml Inj IVP PRN (19:17)
--- NOTE | 2019-07-02 19:19 | NUR ---
HAND-OFF: Report given to Christ
--- NOTE | 2019-07-02 19:20 | NUR ---
NURSE NOTES: Got report from Laura KENDRICK. Pt in stable condition. Denies any pain. No s/s of distress or discomfort noted. Pt resting in bed comfortably. Bed in low andl locked position, call light within reach, bedside table within reach. Continue to monitor.
[2019-07-02] MEDS ORDERED: Acetaminophen 500mg (ES) tab ORAL PRN (19:30)
--- NOTE | 2019-07-02 20:29 | General Progress Note ---
Assessment/Plan Problem List: (1) Dehydration ICD Codes: E86.0 - Dehydration SNOMED: 51242551 (2) Hypoxia ICD Codes: R09.02 - Hypoxemia SNOMED: 069386076 (3) Abdominal pain ICD Codes: R10.9 - Unspecified abdominal pain SNOMED: 48600939 Qualifiers: Qualified Codes: R10.9 - Unspecified abdominal pain (4) Pneumonia ICD Codes: J18.9 - Pneumonia, unspecified organism SNOMED: 995519810 Qualifiers: Qualified Codes: J18.9 - Pneumonia, unspecified organism (5) HCC (hepatocellular carcinoma) ICD Codes: C22.0 - Liver cell carcinoma SNOMED: 805209801 Status: deteriorating Assessment/Plan: hypotension resolved favor comfort care reiveiwed chart and labs and meds monitor for gi bleed cirrhosis portal htn gastric varices sugar is good mets cancer HCC niddm poor prognosis Arf Subjective ROS Limited/Unobtainable: Yes Allergies: Coded Allergies: PENICILLINS (Verified Allergy, Unknown, 06/18/19) Objective Last 24 Hour Vital Signs Date Time Temp Pulse Resp B/P (MAP) Pulse Ox O2 Delivery O2 Flow Rate FiO2 07/02/19 17:00 107 14 122/56 (78) 100 07/02/19 16:00 110 15 126/57 (80) 100 07/02/19 15:03 111 07/02/19 15:00 107 15 117/62 (80) 100 07/02/19 14:30 110 15 137/66 (89) 100 07/02/19 14:00 101 14 121/69 (86) 100 07/02/19 13:30 110 20 145/68 (93) 100 07/02/19 13:00 108 15 107/43 (64) 100 07/02/19 12:30 100 14 97/53 (68) 99 07/02/19 12:00 97.7 105 15 118/57 (77) 100 07/02/19 11:31 103 07/02/19 11:30 98 16 92/47 (62) 97 07/02/19 11:00 108 16 108/46 (66) 100 07/02/19 10:30 109 19 105/55 (72) 100 07/02/19 10:15 112 16 99/59 (72) 100 07/02/19 10:00 101 13 77/54 (62) 100 07/02/19 09:30 111 17 100/52 (68) 100 07/02/19 09:00 112 19 117/59 (78) 100 07/02/19 08:45 122 24 133/54 (80) 96 07/02/19 08:30 107 17 112/53 (72) 100 07/02/19 08:15 105 17 111/54 (73) 100 07/02/19 08:00 98.5 113 15 112/37 (62) 100 07/02/19 08:00 111/54 07/02/19 07:54 113 07/02/19 07:30 108 15 100/44 (62) 100 07/02/19 07:00 105 15 93/48 (63) 100 07/02/19 07:00 113/48 07/02/19 07:00 100 Nasal Cannula 2.0 28 07/02/19 06:30 76 14 99/64 (76) 100 07/02/19 06:15 105 14 115/49 (71) 100 07/02/19 06:00 99/46 07/02/19 06:00 105 15 95/58 (70) 07/02/19 05:45 112 16 104/46 (65) 100 07/02/19 05:30 115 15 109/37 (61) 100 07/02/19 05:15 124 20 115/24 (54) 100 07/02/19 05:00 117 17 124/48 (73) 100 07/02/19 05:00 115/49 07/02/19 04:45 112 14 116/40 (65) 100 07/02/19 04:30 106 17 114/55 (74) 99 07/02/19 04:15 114 16 122/46 (71) 100 07/02/19 04:00 115/40 07/02/19 04:00 98.5 113 16 120/52 (74) 95 07/02/19 03:45 110 15 109/45 (66) 100 07/02/19 03:30 107 16 104/56 (72) 100 07/02/19 03:15 107 16 112/53 (72) 98 07/02/19 03:00 109 16 114/57 (76) 100 07/02/19 03:00 112/53 07/02/19 02:45 113 17 131/50 (77) 100 07/02/19 02:30 104 16 112/60 (77) 100 07/02/19 02:00 111 17 124/43 (70) 99 07/02/19 02:00 97/48 07/02/19 01:30 110 15 120/51 (74) 100 07/02/19 01:00 114/61 07/02/19 01:00 106 15 138/50 (79) 100 07/02/19 00:30 73 130/46 (74) 07/02/19 00:00 98.4 99 16 109/56 (73) 100 07/02/19 00:00 128/52 07/01/19 23:30 109 14 125/46 (72) 100 07/01/19 23:00 108 13 121/87 (98) 100 07/01/19 23:00 132/56 07/01/19 22:30 110 16 127/46 (73) 100 07/01/19 22:00 93 12 116/36 (62) 100 07/01/19 22:00 132/65 07/01/19 21:30 104 14 119/40 (66) 100 07/01/19 21:15 107 19 108/48 (68) 100 07/01/19 21:13 105/45 07/01/19 21:00 132/65 07/01/19 21:00 103 15 105/45 (65) 100 07/01/19 20:30 84 11 110/38 (62) 100 Intake and Output 07/01/19 07/02/19 19:00 07:00 Intake Total 1219.375 ml 1681.50 ml Output Total 91906 ml 28908 ml Balance -41259.625 ml -10175.50 ml Free Water 60 ml IV Total 1129.375 ml 1101.50 ml Tube Feeding 60 ml 520 ml Other 30 ml Output Urine Total 303 ml 195 ml Other 57445 ml 89279 ml # Voids 2 Laboratory Tests 07/02/19 03:40: White Blood Count 21.2H, Red Blood Count 2.03L, Hemoglobin 8.4L, Hematocrit 20.5L, Mean Corpuscular Volume 101H, Mean Corpuscular Hemoglobin 32.9H, Mean Corpuscular Hemoglobin Concent 32.2, Red Cell Distribution Width 20.9H, Platelet Count 56L, Mean Platelet Volume 8.3, Neutrophils (%) (Auto) , Lymphocytes (%) (Auto) , Monocytes (%) (Auto) , Eosinophils (%) (Auto) , Basophils (%) (Auto) , Differential Total Cells Counted 100, Neutrophils % ( Manual) 94H, Lymphocytes % (Manual) 1L, Monocytes % (Manual) 1, Eosinophils % ( Manual) 1, Basophils % (Manual) 0, Band Neutrophils 3, Platelet Estimate DecreasedL, Platelet Morphology Normal, Anisocytosis 2+, Macrocytosis 1+, Sodium Level 140, Potassium Level 3.8, Chloride Level 109H, Carbon Dioxide Level 17L, Blood Urea Nitrogen 80H, Creatinine 1.8H, Estimat Glomerular Filtration Rate 28.0, Glucose Level 369#H, Uric Acid 12.1H, Calcium Level 7.0L, Phosphorus Level 3.0, Magnesium Level 3.1H, Total Bilirubin 2.2H, Direct Bilirubin 1.4H, Gamma Glutamyl Transpeptidase 142H, Aspartate Amino Transf (AST/ SGOT) 41H, Alanine Aminotransferase (ALT/SGPT) 22, Alkaline Phosphatase 135H, Ammonia 93H, Total Protein 5.9L, Albumin 2.8L, Globulin 3.1, Albumin/Globulin Ratio 0.9L Height (Feet): 5 Height (Inches): 3.00 Weight (Pounds): 143 Era Acuña MD Jul 02, 2019 20:29
[2019-07-03] VITALS: BP 107/70
[2019-07-03 04:00] VITALS: BP 127/64
[2019-07-03] MEDS: NovoLOG Insulin Flexpen SUBQ SCH ×4 (06:26→20:21)
--- NOTE | 2019-07-03 07:20 | General Progress Note ---
Assessment/Plan Status: deteriorating Assessment/Plan: Assessment/Plan Assessment/Plan: Assessment - Cirrhosis, ? etiology - Large liver mass, suspect CA - poor Px - lung nodules - abd distention, ascites -FTT -Anemia -UTI -DM -gallstones -GV Recommendations - Cirrhsis w/u (HBV, [facility], [facility], [facility]) -low dose Propranolol -tumor markers reviewed>>>? cholangio CA with liver mets _ s/p EGD>>> gastric varices -s/p paracentesis 7 lit albumin lactulose poor prognosis Subjective ROS Limited/Unobtainable: No Allergies: Coded Allergies: PENICILLINS (Verified Allergy, Unknown, 06/18/19) Objective Last 24 Hour Vital Signs Date Time Temp Pulse Resp B/P (MAP) Pulse Ox O2 Delivery O2 Flow Rate FiO2 07/03/19 04:00 98.8 114 20 127/64 (85) 95 07/03/19 00:00 97.0 110 18 107/70 (82) 95 07/02/19 20:00 97.0 110 18 128/76 (93) 95 07/02/19 17:00 107 14 122/56 (78) 100 07/02/19 16:00 110 15 126/57 (80) 100 07/02/19 15:03 111 07/02/19 15:00 107 15 117/62 (80) 100 07/02/19 14:30 110 15 137/66 (89) 100 07/02/19 14:00 101 14 121/69 (86) 100 07/02/19 13:30 110 20 145/68 (93) 100 07/02/19 13:00 108 15 107/43 (64) 100 07/02/19 12:30 100 14 97/53 (68) 99 07/02/19 12:00 97.7 105 15 118/57 (77) 100 07/02/19 11:31 103 07/02/19 11:30 98 16 92/47 (62) 97 07/02/19 11:00 108 16 108/46 (66) 100 07/02/19 10:30 109 19 105/55 (72) 100 07/02/19 10:15 112 16 99/59 (72) 100 07/02/19 10:00 101 13 77/54 (62) 100 07/02/19 09:30 111 17 100/52 (68) 100 07/02/19 09:00 112 19 117/59 (78) 100 07/02/19 08:45 122 24 133/54 (80) 96 07/02/19 08:30 107 17 112/53 (72) 100 07/02/19 08:15 105 17 111/54 (73) 100 07/02/19 08:00 98.5 113 15 112/37 (62) 100 07/02/19 08:00 111/54 07/02/19 07:54 113 07/02/19 07:30 108 15 100/44 (62) 100 Intake and Output 07/02/19 07/03/19 19:00 07:00 Intake Total 912.5 ml Output Total 380 ml 80 ml Balance 532.5 ml -80 ml IV Total 722.5 ml Tube Feeding 190 ml Output Urine Total 300 ml 80 ml Emesis 80 ml Laboratory Tests 07/03/19 05:34: White Blood Count [Pending], Red Blood Count [Pending], Hemoglobin [Pending], Hematocrit [Pending], Mean Corpuscular Volume [Pending], Mean Corpuscular Hemoglobin [Pending], Mean Corpuscular Hemoglobin Concent [Pending], Red Cell Distribution Width [Pending], Platelet Count [Pending], Mean Platelet Volume [ Pending], Neutrophils (%) (Auto) [Pending], Lymphocytes (%) (Auto) [Pending], Monocytes (%) (Auto) [Pending], Eosinophils (%) (Auto) [Pending], Basophils (%) (Auto) [Pending], Sodium Level [Pending], Potassium Level [Pending], Chloride Level [Pending], Carbon Dioxide Level [Pending], Blood Urea Nitrogen [Pending], Creatinine [Pending], Estimat Glomerular Filtration Rate [Pending], Glucose Level [Pending], Uric Acid [Pending], Calcium Level [Pending], Phosphorus Level [Pending], Magnesium Level [Pending], Total Bilirubin [Pending], Aspartate Amino Transf (AST/SGOT) [Pending], Alanine Aminotransferase (ALT/SGPT) [Pending] , Alkaline Phosphatase [Pending], C-Reactive Protein, Quantitative [Pending], Pro-B-Type Natriuretic Peptide [Pending], Total Protein [Pending], Albumin [ Pending], Globulin [Pending] Height (Feet): 5 Height (Inches): 3.00 Weight (Pounds): 143 General Appearance: no apparent distress EENT: normal ENT inspection Neck: supple Cardiovascular: normal rate Respiratory/Chest: decreased breath sounds Abdomen: normal bowel sounds, non tender, soft Extremities: non-tender Howard Childers MD Jul 03, 2019 07:20
[2019-07-03 08:00] VITALS: BP 103/58
--- NOTE | 2019-07-03 08:00 | NUR ---
HAND-OFF: Report given to Joe KENDRICK.
[2019-07-03 08:13] LABS: ALANINE AMINOTRANSFERASE 28 U/L (12-78); ALBUMIN 2.5 G/DL (3.4-5.0); ALBUMIN/GLOBULIN RATIO 0.8 (1.0-2.7); ALKALINE PHOSPHATASE 183 U/L (46-116); ANION GAP 15 mmol/L (5-15); ASPARTATE AMINO TRANSFERASE 139 U/L (15-37); BILIRUBIN,TOTAL 2.1 MG/DL (0.2-1.0); BLOOD UREA NITROGEN 83 mg/dL (7-18); CALCIUM 7.7 MG/DL (8.5-10.1); CARBON DIOXIDE 16 MMOL/L (21-32); CHLORIDE 107 MMOL/L (98-107); CREATININE 2.1 MG/DL (0.55-1.30); PHOSPHORUS 3.2 MG/DL (2.5-4.9); POTASSIUM 5.1 MMOL/L (3.5-5.1); SODIUM 138 MMOL/L (136-145)
[2019-07-03 08:19] LABS: BILIRUBIN,DIRECT 1.2 MG/DL (0.0-0.3)
[2019-07-03] MEDS: D5 1/4NS 1000ml 1,000 ML IV SCH ×2 (08:35→21:55)
[2019-07-03] MEDS: Lactulose 20gm/30ml UDC NG SCH ×3 (09:00→18:00)
[2019-07-03 10:06] LABS: HEMATOCRIT 26.3 % (37.0-47.0); HEMOGLOBIN 8.7 G/DL (12.0-16.0); MEAN CORPUSCULAR VOLUME 101 FL (80-99); PLATELET COUNT 53 K/UL (150-450); RED BLOOD COUNT 2.61 M/UL (4.20-5.40); RED CELL DISTRIBUTION WIDTH 18.2 % (11.6-14.8)
[2019-07-03 10:09] LABS: WHITE BLOOD COUNT 25.2 K/UL (4.8-10.8)
[2019-07-03] MEDS: Pantoprazole Inj IVP SCH ×2 (10:41→20:23)
[2019-07-03] MEDS: Midodrine 10mg tab NG SCH ×3 (10:48→18:20)
--- NOTE | 2019-07-03 11:33 | Infectious Diseases Prog Note ---
Assessment/Plan Assessment/Plan antibiotics : ceftriaxone A 1. pneumonia covid 19 negative 2. Cirrhosis of liver 3. Portal hypertension, 4. Diabetes mellitus, 5. Hypertension, 6. Acute renal failure P 1. continue ceftriaxone 2. will follow up cultures Subjective ROS Limited/Unobtainable: Yes Allergies: Coded Allergies: PENICILLINS (Verified Allergy, Unknown, 06/18/19) Objective Vital Signs Last 24 Hour Vital Signs Date Time Temp Pulse Resp B/P (MAP) Pulse Ox O2 Delivery O2 Flow Rate FiO2 07/03/19 04:00 98.8 114 20 127/64 (85) 95 07/03/19 00:00 97.0 110 18 107/70 (82) 95 07/02/19 20:00 97.0 110 18 128/76 (93) 95 07/02/19 17:00 107 14 122/56 (78) 100 07/02/19 16:00 110 15 126/57 (80) 100 07/02/19 15:03 111 07/02/19 15:00 107 15 117/62 (80) 100 07/02/19 14:30 110 15 137/66 (89) 100 07/02/19 14:00 101 14 121/69 (86) 100 07/02/19 13:30 110 20 145/68 (93) 100 07/02/19 13:00 108 15 107/43 (64) 100 07/02/19 12:30 100 14 97/53 (68) 99 07/02/19 12:00 97.7 105 15 118/57 (77) 100 Height (Feet): 5 Height (Inches): 3.00 Weight (Pounds): 143 Respiratory/Chest: lungs clear Cardiovascular: normal rate, regular rhythm, no gallop/murmur Abdomen: soft, non tender, distended Extremities: no edema, other - right IJ catheter Laboratory Tests Test 07/03/19 05:34 White Blood Count 25.2 K/UL (4.8-10.8) *H Red Blood Count 2.61 M/UL (4.20-5.40) L Hemoglobin 8.7 G/DL (12.0-16.0) L Hematocrit 26.3 % (37.0-47.0) L Mean Corpuscular Volume 101 FL (80-99) H Mean Corpuscular Hemoglobin 33.3 PG (27.0-31.0) H Mean Corpuscular Hemoglobin Concent 33.0 G/DL (32.0-36.0) Red Cell Distribution Width 18.2 % (11.6-14.8) H Platelet Count 53 K/UL (150-450) L Mean Platelet Volume 8.5 FL (6.5-10.1) Neutrophils (%) (Auto) % (45.0-75.0) Lymphocytes (%) (Auto) % (20.0-45.0) Monocytes (%) (Auto) % (1.0-10.0) Eosinophils (%) (Auto) % (0.0-3.0) Basophils (%) (Auto) % (0.0-2.0) Neutrophils % (Manual) Pending Lymphocytes % (Manual) Pending Platelet Estimate Pending Platelet Morphology Pending Sodium Level 138 MMOL/L (136-145) Potassium Level 5.1 MMOL/L (3.5-5.1) Chloride Level 107 MMOL/L (98-107) Carbon Dioxide Level 16 MMOL/L (21-32) L Anion Gap 15 mmol/L (5-15) Blood Urea Nitrogen 83 mg/dL (7-18) H Creatinine 2.1 MG/DL (0.55-1.30) H Estimat Glomerular Filtration Rate 23.5 mL/min (>60) Glucose Level 269 MG/DL (74-106) #H Uric Acid 11.4 MG/DL (2.6-7.2) H Calcium Level 7.7 MG/DL (8.5-10.1) L Phosphorus Level 3.2 MG/DL (2.5-4.9) Magnesium Level 3.2 MG/DL (1.8-2.4) H Total Bilirubin 2.1 MG/DL (0.2-1.0) H Direct Bilirubin 1.2 MG/DL (0.0-0.3) H Aspartate Amino Transf (AST/SGOT) 139 U/L (15-37) H Alanine Aminotransferase (ALT/SGPT) 28 U/L (12-78) Alkaline Phosphatase 183 U/L (46-116) H C-Reactive Protein, Quantitative 8.0 mg/dL (0.00-0.90) H Pro-B-Type Natriuretic Peptide 802 pg/mL (0-125) H Total Protein 5.8 G/DL (6.4-8.2) L Albumin 2.5 G/DL (3.4-5.0) L Globulin 3.3 g/dL Albumin/Globulin Ratio 0.8 (1.0-2.7) L Current Medications Medications (Trade) Dose Ordered Sig/[place] Route PRN Reason Start Time Stop Time Status Last Admin Dose Admin Acetaminophen (Tylenol) 500 mg Q6H PRN ORAL MILD/TEMP 07/02/19 19:30 07/18/19 19:29 Allopurinol (allopurinoL) 300 mg DAILY NG 07/03/19 09:00 07/31/19 14:29 07/03/19 10:41 Barium Sulfate (Varibar Honey) 250 ml NOW PRN MC RAD 07/03/19 13:45 07/04/19 13:30 Barium Sulfate (Varibar [place]) 240 ml NOW PRN MC RAD 07/03/19 13:45 07/04/19 13:30 Barium Sulfate (Varibar Pudding) 230 ml NOW PRN MC RAD 07/03/19 13:45 07/04/19 13:30 Barium Sulfate (Varibar Thin Liquid powder) 148 gm NOW PRN MC RAD 07/03/19 13:45 07/05/19 13:30 Ceftriaxone Sodium 1 gm/ Dextrose 55 ml @ 110 mls/hr Q24H IVPB 07/03/19 19:30 07/10/19 19:29 Dextrose (Dextrose 50%) 25 ml Q30M PRN IV Hypoglycemia 07/02/19 19:45 09/17/19 14:33 Dextrose (Dextrose 50%) 50 ml Q30M PRN IV Hypoglycemia 07/02/19 19:45 09/17/19 09:44 Dextrose/Sodium Chloride 1,000 ml @ 75 mls/hr [id number] IV 07/02/19 19:15 07/31/19 13:12 07/02/19 22:10 Insulin Aspart (NovoLOG) BEFORE MEALS AND HS SUBQ 07/02/19 21:00 09/17/19 11:29 07/03/19 06:26 Lactulose (Cephulac) 20 gm THREE TIMES A DAY NG 07/03/19 09:00 07/26/19 08:59 Midodrine (Pro-Amatine) 10 mg THREE TIMES A DAY NG 07/03/19 09:00 09/30/19 12:59 07/03/19 10:48 Naloxone HCl (Narcan) 0.2 mg Q2M PRN IVP respiratory depression 07/02/19 19:17 09/18/19 11:59 Olanzapine (ZyPREXA) 5 mg BIDPRN PRN ORAL agitation 07/02/19 19:30 08/16/19 19:29 Ondansetron HCl (Zofran) 4 mg Q6H PRN IVP Nausea & Vomiting 07/02/19 22:00 08/01/19 09:59 Pantoprazole (Protonix) 40 mg Q12HR IVP 07/02/19 21:00 07/23/19 08:59 07/03/19 10:41 Pat Oviedo MD Jul 03, 2019 11:33
[2019-07-03 12:00] VITALS: BP 103/57
--- NOTE | 2019-07-03 12:07 | Pulmonology Progress Note ---
Assessment/Plan Assessment/Plan IMPRESSION: 1. Probable metastatic pulmonary disease. 2. Negative COVID-19. 3. Hepatocellular mass. Likely carcinoma 4. Schizophrenia. 5. Diabetes mellitus. 6. Anemia; now corrected DISCUSSION: Continue low flow O2 prn CXR no change; looks clear Discussed with Gastroenterology. Repeat COVID 19 negative Agree with hospice Transferred to [facility] Trip Martines M.D. Subjective Interval Events: None new Constitutional: Reports: no symptoms HEENT: Repors: no symptoms Respiratory: Reports: no symptoms Cardiovascular: Reports: no symptoms Gastrointestinal/Abdominal: Reports: no symptoms Allergies: Coded Allergies: PENICILLINS (Verified Allergy, Unknown, 06/18/19) Objective Last 24 Hour Vital Signs Date Time Temp Pulse Resp B/P (MAP) Pulse Ox O2 Delivery O2 Flow Rate FiO2 07/03/19 04:00 98.8 114 20 127/64 (85) 95 07/03/19 00:00 97.0 110 18 107/70 (82) 95 07/02/19 20:00 97.0 110 18 128/76 (93) 95 07/02/19 17:00 107 14 122/56 (78) 100 07/02/19 16:00 110 15 126/57 (80) 100 07/02/19 15:03 111 07/02/19 15:00 107 15 117/62 (80) 100 07/02/19 14:30 110 15 137/66 (89) 100 07/02/19 14:00 101 14 121/69 (86) 100 07/02/19 13:30 110 20 145/68 (93) 100 07/02/19 13:00 108 15 107/43 (64) 100 07/02/19 12:30 100 14 97/53 (68) 99 Intake and Output 07/02/19 07/03/19 19:00 07:00 Intake Total 912.5 ml Output Total 380 ml 80 ml Balance 532.5 ml -80 ml IV Total 722.5 ml Tube Feeding 190 ml Output Urine Total 300 ml 80 ml Emesis 80 ml General Appearance: no acute distress HEENT: normocephalic Respiratory/Chest: chest wall non-tender Cardiovascular: normal peripheral pulses Abdomen: normal bowel sounds Laboratory Tests 07/03/19 05:34: White Blood Count 25.2*H, Red Blood Count 2.61L, Hemoglobin 8.7L, Hematocrit 26.3L, Mean Corpuscular Volume 101H, Mean Corpuscular Hemoglobin 33.3H, Mean Corpuscular Hemoglobin Concent 33.0, Red Cell Distribution Width 18.2H, Platelet Count 53L, Mean Platelet Volume 8.5, Neutrophils (%) (Auto) , Lymphocytes (%) (Auto) , Monocytes (%) (Auto) , Eosinophils (%) (Auto) , Basophils (%) (Auto) , Neutrophils % (Manual) [Pending], Lymphocytes % (Manual) [Pending], Platelet Estimate [Pending], Platelet Morphology [Pending], Sodium Level 138, Potassium Level 5.1, Chloride Level 107, Carbon Dioxide Level 16L, Anion Gap 15, Blood Urea Nitrogen 83H, Creatinine 2.1H, Estimat Glomerular Filtration Rate 23.5, Glucose Level 269#H, Uric Acid 11.4H, Calcium Level 7.7L, Phosphorus Level 3.2, Magnesium Level 3.2H, Total Bilirubin 2.1H, Direct Bilirubin 1.2H, Aspartate Amino Transf (AST/SGOT) 139H, Alanine Aminotransferase (ALT/SGPT) 28, Alkaline Phosphatase 183H, C-Reactive Protein, Quantitative 8.0H, Pro-B-Type Natriuretic Peptide 802H, Total Protein 5.8L, Albumin 2.5L, Globulin 3.3, Albumin/Globulin Ratio 0.8L Current Medications Medications (Trade) Dose Ordered Sig/[place] Route PRN Reason Start Time Stop Time Status Last Admin Dose Admin Acetaminophen (Tylenol) 500 mg Q6H PRN ORAL MILD/TEMP 07/02/19 19:30 07/18/19 19:29 Allopurinol (allopurinoL) 300 mg DAILY NG 07/03/19 09:00 07/31/19 14:29 07/03/19 10:41 Barium Sulfate (Varibar Honey) 250 ml NOW PRN MC RAD 07/03/19 13:45 07/04/19 13:30 Barium Sulfate (Varibar [place]) 240 ml NOW PRN MC RAD 07/03/19 13:45 07/04/19 13:30 Barium Sulfate (Varibar Pudding) 230 ml NOW PRN MC RAD 07/03/19 13:45 07/04/19 13:30 Barium Sulfate (Varibar Thin Liquid powder) 148 gm NOW PRN RAD 07/03/19 13:45 07/05/19 13:30 Ceftriaxone Sodium 1 gm/ Dextrose 55 ml @ 110 mls/hr Q24H IVPB 07/03/19 19:30 07/10/19 19:29 Dextrose (Dextrose 50%) 25 ml Q30M PRN IV Hypoglycemia 07/02/19 19:45 09/17/19 14:33 Dextrose (Dextrose 50%) 50 ml Q30M PRN IV Hypoglycemia 07/02/19 19:45 09/17/19 09:44 Dextrose/Sodium Chloride 1,000 ml @ 75 mls/hr [id number] IV 07/02/19 19:15 07/31/19 13:12 07/02/19 22:10 Insulin Aspart (NovoLOG) BEFORE MEALS AND HS SUBQ 07/02/19 21:00 09/17/19 11:29 07/03/19 06:26 Lactulose (Cephulac) 20 gm THREE TIMES A DAY NG 07/03/19 09:00 07/26/19 08:59 Midodrine (Pro-Amatine) 10 mg THREE TIMES A DAY NG 07/03/19 09:00 09/30/19 12:59 07/03/19 10:48 Naloxone HCl (Narcan) 0.2 mg Q2M PRN IVP respiratory depression 07/02/19 19:17 09/18/19 11:59 Olanzapine (ZyPREXA) 5 mg BIDPRN PRN ORAL agitation 07/02/19 19:30 08/16/19 19:29 Ondansetron HCl (Zofran) 4 mg Q6H PRN IVP Nausea & Vomiting 07/02/19 22:00 08/01/19 09:59 Pantoprazole (Protonix) 40 mg Q12HR IVP 07/02/19 21:00 07/23/19 08:59 07/03/19 10:41 Trip Martines MD Jul 03, 2019 12:07
--- NOTE | 2019-07-03 12:37 | Nephrology Progress Note ---
Assessment/Plan Problem List: (1) LEANDRO (acute kidney injury) Assessment: Serum creatinine was up to 1.9 now back to 1.2 (2) Hyperkalemia (3) Liver cirrhosis (4) Liver mass (5) Anemia Assessment - LEANDRO , serum creatinine [place] to 1.6, likely multifactorial, due to underlying liver disease, antibiotics, low blood pressure. - Hyperkalemia - Hypoalbuminemia - Cirrhosis, ? etiology - Large liver mass, suspect CA - poor Px - lung nodules - abd distention, likely ascites - r/o COVID -FTT -Anemia -UTI -DM -gallstones Plan Change NGT feeding to Nepro renal parameters somewhat worsened, serum creatinine is 2.1 today Start allopurinol NG tube feeding IV Protonix Antibiotics per ID Monitor renal parameters Midodrine for low blood pressure patient transfused June 25 Hydration as needed Neal catheter Avoid nephrotoxics Follow-up with renal parameters Urine studies Per orders Poor prognosis-now is DNR Subjective ROS Limited/Unobtainable: No Constitutional: Reports: malaise, weakness Objective Objective Last 24 Hour Vital Signs Date Time Temp Pulse Resp B/P (MAP) Pulse Ox O2 Delivery O2 Flow Rate FiO2 07/03/19 04:00 98.8 114 20 127/64 (85) 95 07/03/19 00:00 97.0 110 18 107/70 (82) 95 07/02/19 20:00 97.0 110 18 128/76 (93) 95 07/02/19 17:00 107 14 122/56 (78) 100 07/02/19 16:00 110 15 126/57 (80) 100 07/02/19 15:03 111 07/02/19 15:00 107 15 117/62 (80) 100 07/02/19 14:30 110 15 137/66 (89) 100 07/02/19 14:00 101 14 121/69 (86) 100 07/02/19 13:30 110 20 145/68 (93) 100 07/02/19 13:00 108 15 107/43 (64) 100 Intake and Output 07/02/19 07/03/19 19:00 07:00 Intake Total 912.5 ml Output Total 380 ml 80 ml Balance 532.5 ml -80 ml IV Total 722.5 ml Tube Feeding 190 ml Output Urine Total 300 ml 80 ml Emesis 80 ml Laboratory Tests 07/03/19 05:34: White Blood Count 25.2*H, Red Blood Count 2.61L, Hemoglobin 8.7L, Hematocrit 26.3L, Mean Corpuscular Volume 101H, Mean Corpuscular Hemoglobin 33.3H, Mean Corpuscular Hemoglobin Concent 33.0, Red Cell Distribution Width 18.2H, Platelet Count 53L, Mean Platelet Volume 8.5, Neutrophils (%) (Auto) , Lymphocytes (%) (Auto) , Monocytes (%) (Auto) , Eosinophils (%) (Auto) , Basophils (%) (Auto) , Neutrophils % (Manual) [Pending], Lymphocytes % (Manual) [Pending], Platelet Estimate [Pending], Platelet Morphology [Pending], Sodium Level 138, Potassium Level 5.1, Chloride Level 107, Carbon Dioxide Level 16L, Anion Gap 15, Blood Urea Nitrogen 83H, Creatinine 2.1H, Estimat Glomerular Filtration Rate 23.5, Glucose Level 269#H, Uric Acid 11.4H, Calcium Level 7.7L, Phosphorus Level 3.2, Magnesium Level 3.2H, Total Bilirubin 2.1H, Direct Bilirubin 1.2H, Aspartate Amino Transf (AST/SGOT) 139H, Alanine Aminotransferase (ALT/SGPT) 28, Alkaline Phosphatase 183H, C-Reactive Protein, Quantitative 8.0H, Pro-B-Type Natriuretic Peptide 802H, Total Protein 5.8L, Albumin 2.5L, Globulin 3.3, Albumin/Globulin Ratio 0.8L Height (Feet): 5 Height (Inches): 3.00 Weight (Pounds): 143 General Appearance: no apparent distress EENT: other Respiratory/Chest: decreased breath sounds Abdomen: distended Alex Aguilar MD Jul 03, 2019 12:37
[2019-07-03] MEDS ORDERED: Varibar Pudding 230ml MC PRN (13:45)
[2019-07-03] MEDS ORDERED: Varibar Thin Liquid powder 148gm MC PRN (13:45)
[2019-07-03] MEDS ORDERED: Varibar Nectar 240ml MC PRN (13:45)
[2019-07-03] MEDS ORDERED: Varibar Honey 250ml MC PRN (13:45)
[2019-07-03 16:00] VITALS: BP 106/57
--- NOTE | 2019-07-03 19:22 | NUR ---
NURSE NOTES: Received report from AROLDO Heller. Patient in bed. AOx1, arousable. IV intact and flushed. No erythema, bleeding, or infiltration. NGT secured. On soft restraints. Critical labs endorsed by AM nurse. aware, per nurse. Bed in lowest position. Call light placed within reach. Will continue to monitor.
--- NOTE | 2019-07-03 19:26 | Surgery Progress Note ---
Surgery Progress Note Subjective Symptoms: worse Additional Comments worsening wbc labs noted ill appearing distended Objective Last 24 Hour Vital Signs Date Time Temp Pulse Resp B/P (MAP) Pulse Ox O2 Delivery O2 Flow Rate FiO2 07/03/19 16:00 100 07/03/19 16:00 Nasal Cannula 2.0 07/03/19 12:00 Nasal Cannula 2.0 07/03/19 12:00 112 07/03/19 08:11 99 Nasal Cannula 2.0 28 07/03/19 08:00 114 07/03/19 08:00 Nasal Cannula 2.0 07/03/19 04:00 98.8 114 20 127/64 (85) 95 07/03/19 00:00 97.0 110 18 107/70 (82) 95 07/02/19 20:00 97.0 110 18 128/76 (93) 95 I&O Intake and Output 07/02/19 07/03/19 19:00 07:00 Intake Total 912.5 ml Output Total 380 ml 80 ml Balance 532.5 ml -80 ml IV Total 722.5 ml Tube Feeding 190 ml Output Urine Total 300 ml 80 ml Emesis 80 ml Cardiovascular: RSR Respiratory: decreased breath sounds Abdomen: soft, distended, tenderness, decreased bowel sounds Extremities: no tenderness, no cyanosis Laboratory Tests Test 07/03/19 05:34 White Blood Count 25.2 K/UL (4.8-10.8) *H Red Blood Count 2.61 M/UL (4.20-5.40) L Hemoglobin 8.7 G/DL (12.0-16.0) L Hematocrit 26.3 % (37.0-47.0) L Mean Corpuscular Volume 101 FL (80-99) H Mean Corpuscular Hemoglobin 33.3 PG (27.0-31.0) H Mean Corpuscular Hemoglobin Concent 33.0 G/DL (32.0-36.0) Red Cell Distribution Width 18.2 % (11.6-14.8) H Platelet Count 53 K/UL (150-450) L Mean Platelet Volume 8.5 FL (6.5-10.1) Neutrophils (%) (Auto) % (45.0-75.0) Lymphocytes (%) (Auto) % (20.0-45.0) Monocytes (%) (Auto) % (1.0-10.0) Eosinophils (%) (Auto) % (0.0-3.0) Basophils (%) (Auto) % (0.0-2.0) Differential Total Cells Counted 100 Neutrophils % (Manual) 90 % (45-75) H Lymphocytes % (Manual) 5 % (20-45) L Monocytes % (Manual) 5 % (1-10) Eosinophils % (Manual) 0 % (0-3) Basophils % (Manual) 0 % (0-2) Band Neutrophils 0 % (0-8) Platelet Estimate Decreased L Platelet Morphology Normal Hypochromasia 2+ Macrocytosis 1+ Spherocytes 1+ Sodium Level 138 MMOL/L (136-145) Potassium Level 5.1 MMOL/L (3.5-5.1) Chloride Level 107 MMOL/L (98-107) Carbon Dioxide Level 16 MMOL/L (21-32) L Anion Gap 15 mmol/L (5-15) Blood Urea Nitrogen 83 mg/dL (7-18) H Creatinine 2.1 MG/DL (0.55-1.30) H Estimat Glomerular Filtration Rate 23.5 mL/min (>60) Glucose Level 269 MG/DL (74-106) #H Uric Acid 11.4 MG/DL (2.6-7.2) H Calcium Level 7.7 MG/DL (8.5-10.1) L Phosphorus Level 3.2 MG/DL (2.5-4.9) Magnesium Level 3.2 MG/DL (1.8-2.4) H Total Bilirubin 2.1 MG/DL (0.2-1.0) H Direct Bilirubin 1.2 MG/DL (0.0-0.3) H Aspartate Amino Transf (AST/SGOT) 139 U/L (15-37) H Alanine Aminotransferase (ALT/SGPT) 28 U/L (12-78) Alkaline Phosphatase 183 U/L (46-116) H C-Reactive Protein, Quantitative 8.0 mg/dL (0.00-0.90) H Pro-B-Type Natriuretic Peptide 802 pg/mL (0-125) H Total Protein 5.8 G/DL (6.4-8.2) L Albumin 2.5 G/DL (3.4-5.0) L Globulin 3.3 g/dL Albumin/Globulin Ratio 0.8 (1.0-2.7) L Plan Problems: (1) Abdominal pain Assessment & Plan: [age]-year-old female multiple medical comorbidities presented with abdominal discomfort noted to have abnormal LFTs leukocytosis. CT reviewed liver cirrhotic and there is a mass. Possibly carcinoma likely. HCC. Abdominal exam without peritonitis no acute surgical intervention indicated recommended at this time supportive treatment. Will follow with recommendations thank you tumor markers show afp 155, cea 26, ca19.9 [id number] Consider comfort care/hospice can consider biopsy for diagnosis but unfortunately will unlikely help as advanced disease and given differential likely terminal Will follow with recommendations Covid results negative Lower thorax: Unremarkable lung bases. Intraperitoneal space: No free air. Gastrointestinal tract: Unremarkable. No dilation. Bones/joints: Degenerative spine findings and osteopenia. Tubes, lines and devices: Enteric tube with tip and proximal sideport below the gastroesophageal junction. IMPRESSION: 1. Enteric tube with tip and proximal sideport below the gastroesophageal junction. 2. Unremarkable lung bases. 3. No acute abnormality definitively seen. GI placed feeding tube cont feeds as tolerated severe anemia - gi blood loss? transfuse as per heme trend s/p para will monitor exam Thank you Pt presented on admission with multiple skin breakdown. Non-blanching erythema without induration.(L)7cm x (W)9cm . L heel is boggy with non-blanchable erythema(L)5.5cm x (W)4.5cm. R heel is boggy with non-blanchable erythema(L)6cm x (W)5.3cm. Pt did not exhibit any distress to indicate pain when each heel individually palpated. Tx.Plan: Apply Moisture Barrier Paste to Sacrum. Cover with Optifoam drsg. Change every 3 days and prn. Apply Cavilon Skin Barrier to both Heels. Cover each Heel with Optifoam drsg. change every 7 days and prn. Reposition at least every 2hours or as tolerated. Off-load heels with pillow. The liver is cirrhotic. There is evidence of portal hypertension including splenomegaly and gastric varices. There is a mass in the left lobe, primarily in the lateral segments, but also extending medially. This measures 7.7 x 5 x 4.8 cm in greatest transverse, anteroposterior, and craniocaudal dimensions respectively. This is hypodense/hypoenhancing compared to relatively normal adjacent parenchyma in the portal venous phase. This could reflect early washout of a hepatocellular carcinoma, particularly given cirrhosis. A large metastasis is also possible. Cholelithiasis. 2.2 cm densely calcified stone in the dependent gallbladder. No biliary ductal dilation. Both kidneys demonstrate multiple hypodense lesions, which are too small to characterize. No hydronephrosis. There is no bowel obstruction or perforation. The appendix is not well seen. Leftward pelvic calcification may reflect a subserosal uterine fibroid. No abdominal aortic aneurysm. No acute fracture. IMPRESSION: 7.7 cm left lobe hepatic mass is concerning for hepatocellular carcinoma, particularly given cirrhosis. A large metastasis is also possible. Consider multiphase hepatic protocol MRI. Right renal hypodensities that are too small to characterize. Cholelithiasis. code status changed hospice please para for comfort today she is very very distended and firm from fluid Technique: Ultrasound used to localize optimal puncture site. Sterile prepping and draping right lower quadrant. Local anesthesia with 1% lidocaine. Under real- time ultrasound guidance, puncture peritoneal space using paracentesis needle. Stylet removed. Catheter placed to vacuum bottle suction. Total 7 liters of bloody fluid aspirated. Patient tolerated procedure well, without immediate complication. Findings: Followup sonography demonstrates complete resolution of peritoneal fluid. Impression: Successful ultrasound-guided paracentesis, yielding 7 liters of fluid [place] Jul 03, 2019 19:26
[2019-07-03 20:00] VITALS: BP 97/56
[2019-07-03] MEDS: cefTRIAXone 1 GM in D5W 55 ML IVPB SCH (20:05)
--- NOTE | 2019-07-03 23:07 | General Progress Note ---
Assessment/Plan Problem List: (1) Dehydration ICD Codes: E86.0 - Dehydration SNOMED: 26273010 (2) Hypoxia ICD Codes: R09.02 - Hypoxemia SNOMED: 607323150 (3) Abdominal pain ICD Codes: R10.9 - Unspecified abdominal pain SNOMED: 72734371 Qualifiers: Qualified Codes: R10.9 - Unspecified abdominal pain (4) Pneumonia ICD Codes: J18.9 - Pneumonia, unspecified organism SNOMED: 823965991 Qualifiers: Qualified Codes: J18.9 - Pneumonia, unspecified organism (5) HCC (hepatocellular carcinoma) ICD Codes: C22.0 - Liver cell carcinoma SNOMED: 925335837 Status: progressing, deteriorating Assessment/Plan: check sugar malnutrition no bleeding cirrhosis portal htn gastric varices sugar is good mets cancer HCC niddm Arf Subjective ROS Limited/Unobtainable: Yes Allergies: Coded Allergies: PENICILLINS (Verified Allergy, Unknown, 06/18/19) Objective Last 24 Hour Vital Signs Date Time Temp Pulse Resp B/P (MAP) Pulse Ox O2 Delivery O2 Flow Rate FiO2 07/03/19 20:00 111 07/03/19 20:00 97.7 72 22 97/56 (70) 07/03/19 16:00 100 07/03/19 16:00 97.1 112 20 106/57 (73) 07/03/19 16:00 Nasal Cannula 2.0 07/03/19 12:00 97.1 106 20 103/57 (72) 100 07/03/19 12:00 Nasal Cannula 2.0 07/03/19 12:00 112 07/03/19 08:11 99 Nasal Cannula 2.0 28 07/03/19 08:00 114 07/03/19 08:00 Nasal Cannula 2.0 07/03/19 08:00 97.5 106 20 103/58 (73) 100 07/03/19 04:00 98.8 114 20 127/64 (85) 95 07/03/19 00:00 97.0 110 18 107/70 (82) 95 Intake and Output 07/02/19 07/03/19 19:00 07:00 Intake Total 912.5 ml Output Total 380 ml 80 ml Balance 532.5 ml -80 ml IV Total 722.5 ml Tube Feeding 190 ml Output Urine Total 300 ml 80 ml Emesis 80 ml Laboratory Tests 07/03/19 05:34: White Blood Count 25.2*H, Red Blood Count 2.61L, Hemoglobin 8.7L, Hematocrit 26.3L, Mean Corpuscular Volume 101H, Mean Corpuscular Hemoglobin 33.3H, Mean Corpuscular Hemoglobin Concent 33.0, Red Cell Distribution Width 18.2H, Platelet Count 53L, Mean Platelet Volume 8.5, Neutrophils (%) (Auto) , Lymphocytes (%) (Auto) , Monocytes (%) (Auto) , Eosinophils (%) (Auto) , Basophils (%) (Auto) , Differential Total Cells Counted 100, Neutrophils % ( Manual) 90H, Lymphocytes % (Manual) 5L, Monocytes % (Manual) 5, Eosinophils % ( Manual) 0, Basophils % (Manual) 0, Band Neutrophils 0, Platelet Estimate DecreasedL, Platelet Morphology Normal, Hypochromasia 2+, Macrocytosis 1+, Spherocytes 1+, Sodium Level 138, Potassium Level 5.1, Chloride Level 107, Carbon Dioxide Level 16L, Anion Gap 15, Blood Urea Nitrogen 83H, Creatinine 2.1H , Estimat Glomerular Filtration Rate 23.5, Glucose Level 269#H, Uric Acid 11.4H , Calcium Level 7.7L, Phosphorus Level 3.2, Magnesium Level 3.2H, Total Bilirubin 2.1H, Direct Bilirubin 1.2H, Aspartate Amino Transf (AST/SGOT) 139H, Alanine Aminotransferase (ALT/SGPT) 28, Alkaline Phosphatase 183H, C-Reactive Protein, Quantitative 8.0H, Pro-B-Type Natriuretic Peptide 802H, Total Protein 5.8L, Albumin 2.5L, Globulin 3.3, Albumin/Globulin Ratio 0.8L Height (Feet): 5 Height (Inches): 3.00 Weight (Pounds): 143 Era Acuña MD Jul 03, 2019 23:07
--- NOTE | 2019-07-03 23:38 | Psych Consult Progress Note ---
Psychiatry Progress Note Psychiatry Progress Note Subjective the pt is having waxing and waning of consciousness. out of ICU. the pt has episodes of agitation the pt is disoriented. 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 Medications Current Medications Medications (Trade) Dose Ordered Sig/Idalia Route PRN Reason Start Time Stop Time Status Last Admin Dose Admin Acetaminophen (Tylenol) 500 mg Q6H PRN ORAL MILD/TEMP 07/02/19 19:30 07/18/19 19:29 Allopurinol (allopurinoL) 300 mg DAILY NG 07/03/19 09:00 07/31/19 14:29 07/03/19 10:41 Barium Sulfate (Varibar Honey) 250 ml NOW PRN MC RAD 07/03/19 13:45 07/04/19 13:30 Barium Sulfate (Varibar [place]) 240 ml NOW PRN MC RAD 07/03/19 13:45 07/04/19 13:30 Barium Sulfate (Varibar [place]ud[place]) 230 ml NOW PRN MC RAD 07/03/19 13:45 07/04/19 13:30 Barium Sulfate (Varibar Thin Liquid powder) 148 gm NOW PRN MC RAD 07/03/19 13:45 07/05/19 13:30 Ceftriaxone Sodium 1 gm/ Dextrose 55 ml @ 110 mls/hr Q24H IVPB 07/03/19 19:30 07/10/19 19:29 07/03/19 20:05 Dextrose (Dextrose 50%) 25 ml Q30M PRN IV Hypoglycemia 07/02/19 19:45 09/17/19 14:33 Dextrose (Dextrose 50%) 50 ml Q30M PRN IV Hypoglycemia 07/02/19 19:45 09/17/19 09:44 Dextrose/Sodium Chloride 1,000 ml @ 75 mls/hr [id number] IV 07/02/19 19:15 07/31/19 13:12 07/02/19 22:10 Insulin Aspart (NovoLOG) BEFORE MEALS AND HS SUBQ 07/02/19 21:00 09/17/19 11:29 07/03/19 20:21 Lactulose (Cephulac) 20 gm THREE TIMES A DAY NG 07/03/19 09:00 07/26/19 08:59 Midodrine (Pro-Amatine) 10 mg THREE TIMES A DAY NG 07/03/19 09:00 09/30/19 12:59 07/03/19 18:20 Naloxone HCl (Narcan) 0.2 mg Q2M PRN IVP respiratory depression 07/02/19 19:17 09/18/19 11:59 Ondansetron HCl (Zofran) 4 mg Q6H PRN IVP Nausea & Vomiting 07/02/19 22:00 08/01/19 09:59 Pantoprazole (Protonix) 40 mg Q12HR IVP 07/02/19 21:00 07/23/19 08:59 07/03/19 20:23 Allergies: Coded Allergies: PENICILLINS (Verified Allergy, Unknown, 06/18/19) Objective Data Height (Feet): 5 Height (Inches): 3.00 Weight (Pounds): 143 General Appearance: no apparent distress, confused Assessment/Plan Status: deteriorating Assessment/Plan: PLAN: 1. restarted zyprexa prn 2. Continue to follow and readjust the medications. Per Holden MD Jul 03, 2019 23:38
[2019-07-04] VITALS: BP 105/60
[2019-07-04] MEDS: D5 1/4NS 1000ml 1,000 ML IV SCH ×2 (02:13→16:58)
--- NOTE | 2019-07-04 02:26 | NUR ---
NURSE NOTES: Patient asleep, but arousable. Bed rails raised. Responsive to name. New bag of D5 1/4NS running at 75ml/hr started. IV patent; no signs of erythema, bleeding, and infiltration. Bed in lowest position. Call light placed within reach. Will continue to monitor.
[2019-07-04 04:00] VITALS: BP 116/61
[2019-07-04] MEDS: NovoLOG Insulin Flexpen SUBQ SCH ×4 (06:22→20:29)
--- NOTE | 2019-07-04 06:27 | General Progress Note ---
Assessment/Plan Status: deteriorating Assessment/Plan: Assessment/Plan Assessment/Plan: Assessment - Cirrhosis, ? etiology - Large liver mass, suspect CA - poor Px - lung nodules - abd distention, ascites -FTT -Anemia -UTI -DM -gallstones -GV Recommendations - Cirrhsis w/u (HBV, [facility], [facility], HHC) -low dose Propranolol -tumor markers reviewed>>>? cholangio CA with liver mets _ s/p EGD>>> gastric varices -s/p paracentesis 7 lit lactulose poor prognosis resume NGTF pending family plans for hospice reorder paracentesis for comfort Subjective ROS Limited/Unobtainable: No Allergies: Coded Allergies: PENICILLINS (Verified Allergy, Unknown, 06/18/19) Objective Last 24 Hour Vital Signs Date Time Temp Pulse Resp B/P (MAP) Pulse Ox O2 Delivery O2 Flow Rate FiO2 07/04/19 04:00 131 07/04/19 00:00 98.6 82 20 105/60 (75) 95 07/04/19 00:00 110 07/03/19 20:04 97 Nasal Cannula 2.0 28 07/03/19 20:00 111 07/03/19 20:00 97.7 72 22 97/56 (70) 07/03/19 16:00 100 07/03/19 16:00 97.1 112 20 106/57 (73) 07/03/19 16:00 Nasal Cannula 2.0 07/03/19 12:00 97.1 106 20 103/57 (72) 100 07/03/19 12:00 Nasal Cannula 2.0 07/03/19 12:00 112 07/03/19 08:11 99 Nasal Cannula 2.0 28 07/03/19 08:00 114 07/03/19 08:00 Nasal Cannula 2.0 07/03/19 08:00 97.5 106 20 103/58 (73) 100 Intake and Output 07/03/19 07/04/19 19:00 07:00 Intake Total 1000 ml 55 ml Output Total 200 ml Balance 800 ml 55 ml IV Total 1000 ml 55 ml Output Urine Total 200 ml Height (Feet): 5 Height (Inches): 3.00 Weight (Pounds): 143 General Appearance: lethargic EENT: normal ENT inspection Neck: supple Cardiovascular: normal rate Respiratory/Chest: decreased breath sounds Abdomen: normal bowel sounds, non tender, soft Extremities: non-tender Howard Childers MD Jul 04, 2019 06:26
--- NOTE | 2019-07-04 07:55 | NUR ---
HAND-OFF: Report given to AROLDO Michel. Patient stable. Plan of care endorsed.
--- NOTE | 2019-07-04 07:57 | NUR ---
Patient sitting HOB at 45 degrees, awake, eyes open, aphasic, Oxygen at 2 liters nasal cannula, G-tube in place, feeding is off, IV Right IJ running D51/4NS@75, bed in lowest position, call light within reach, soft wrist restraints in place, in no apparent distress.
[2019-07-04 08:00] VITALS: BP 104/49
[2019-07-04] MEDS: Midodrine 10mg tab NG SCH ×3 (09:12→17:05)
[2019-07-04] MEDS: Lactulose 20gm/30ml UDC NG SCH ×3 (09:12→17:04)
[2019-07-04] MEDS: Pantoprazole Inj IVP SCH ×2 (09:12→20:20)
--- NOTE | 2019-07-04 11:01 | Pulmonology Progress Note ---
Assessment/Plan Assessment/Plan IMPRESSION: 1. Probable metastatic pulmonary disease. 2. Negative COVID-19. 3. Hepatocellular mass. Likely carcinoma 4. Schizophrenia. 5. Diabetes mellitus. 6. Anemia; now corrected DISCUSSION: Continue O2 prn CXR no change; looks clear Discussed with Gastroenterology. Repeat COVID 19 negative Agree with hospice Transferred to tele Family at bedside Appears pre-terminal Trip Martines M.D. Subjective Interval Events: Family at bedside Constitutional: Reports: no symptoms HEENT: Repors: no symptoms Respiratory: Reports: no symptoms Cardiovascular: Reports: no symptoms Gastrointestinal/Abdominal: Reports: no symptoms Allergies: Coded Allergies: PENICILLINS (Verified Allergy, Unknown, 06/18/19) Objective Last 24 Hour Vital Signs Date Time Temp Pulse Resp B/P (MAP) Pulse Ox O2 Delivery O2 Flow Rate FiO2 07/04/19 08:00 97.7 111 22 104/49 (67) 100 07/04/19 04:00 98.3 119 20 116/61 (79) 97 07/04/19 04:00 131 07/04/19 00:00 98.6 82 20 105/60 (75) 95 07/04/19 00:00 110 07/03/19 20:04 97 Nasal Cannula 2.0 28 07/03/19 20:00 111 07/03/19 20:00 97.7 72 22 97/56 (70) 07/03/19 16:00 100 07/03/19 16:00 97.1 112 20 106/57 (73) 07/03/19 16:00 Nasal Cannula 2.0 07/03/19 12:00 97.1 106 20 103/57 (72) 100 07/03/19 12:00 Nasal Cannula 2.0 07/03/19 12:00 112 Intake and Output 07/03/19 07/04/19 19:00 07:00 Intake Total 1000 ml 55 ml Output Total 200 ml Balance 800 ml 55 ml IV Total 1000 ml 55 ml Output Urine Total 200 ml General Appearance: no acute distress HEENT: normocephalic Respiratory/Chest: chest wall non-tender, lungs clear Cardiovascular: normal peripheral pulses Abdomen: normal bowel sounds Current Medications Medications (Trade) Dose Ordered Sig/[place]alia Route PRN Reason Start Time Stop Time Status Last Admin Dose Admin Acetaminophen (Tylenol) 500 mg Q6H PRN ORAL MILD/TEMP 07/02/19 19:30 07/18/19 19:29 Allopurinol (allopurinoL) 300 mg DAILY NG 07/03/19 09:00 07/31/19 14:29 07/04/19 09:12 Barium Sulfate (Varibar [place]) 250 ml NOW PRN MC RAD 07/03/19 13:45 07/04/19 13:30 Barium Sulfate (Varibar [place]) 240 ml NOW PRN MC RAD 07/03/19 13:45 07/04/19 13:30 Barium Sulfate (Varibar Pudding) 230 ml NOW PRN MC RAD 07/03/19 13:45 07/04/19 13:30 Barium Sulfate (Varibar Thin Liquid powder) 148 gm NOW PRN MC RAD 07/03/19 13:45 07/05/19 13:30 Ceftriaxone Sodium 1 gm/ Dextrose 55 ml @ 110 mls/hr Q24H IVPB 07/03/19 19:30 07/10/19 19:29 07/03/19 20:05 Dextrose (Dextrose 50%) 25 ml Q30M PRN IV Hypoglycemia 07/02/19 19:45 09/17/19 14:33 Dextrose (Dextrose 50%) 50 ml Q30M PRN IV Hypoglycemia 07/02/19 19:45 09/17/19 09:44 Dextrose/Sodium Chloride 1,000 ml @ 75 mls/hr [id number] IV 07/02/19 19:15 07/31/19 13:12 07/04/19 02:13 Insulin Aspart (NovoLOG) BEFORE MEALS AND HS SUBQ 07/02/19 21:00 09/17/19 11:29 07/04/19 06:22 Lactulose (Cephulac) 20 gm THREE TIMES A DAY NG 07/03/19 09:00 07/26/19 08:59 07/04/19 09:12 Midodrine (Pro-Amatine) 10 mg THREE TIMES A DAY NG 07/03/19 09:00 09/30/19 12:59 07/04/19 09:12 Naloxone HCl (Narcan) 0.2 mg Q2M PRN IVP respiratory depression 07/02/19 19:17 09/18/19 11:59 Olanzapine (ZyPREXA) 5 mg BID PRN ORAL agitation 07/03/19 23:45 08/17/19 23:44 Ondansetron HCl (Zofran) 4 mg Q6H PRN IVP Nausea & Vomiting 07/02/19 22:00 08/01/19 09:59 Pantoprazole (Protonix) 40 mg Q12HR IVP 07/02/19 21:00 07/23/19 08:59 07/04/19 09:12 Trip Martines MD Jul 04, 2019 11:01
[2019-07-04 12:00] VITALS: BP 116/64
--- NOTE | 2019-07-04 13:30 | Infectious Diseases Prog Note ---
Assessment/Plan Assessment/Plan IMPRESSION: Hypoxemia and abnormal CT scan of the chest, more likely metastatic disease. Cirrhosis of liver Portal hypertension, Diabetes mellitus, Hypertension, Cholelithiasis, Anemia, suspected liver neoplasm. Gastric varices Acute renal failure RECOMMENDATION: Continue Rocephin 06/17, 06/22 COVID19 test. Prognosis is poor Patient become DNR Subjective ROS Limited/Unobtainable: Yes Constitutional: Denies: fever Neurologic: Reports: other - on restraint Allergies: Coded Allergies: PENICILLINS (Verified Allergy, Unknown, 06/18/19) Objective Vital Signs Last 24 Hour Vital Signs Date Time Temp Pulse Resp B/P (MAP) Pulse Ox O2 Delivery O2 Flow Rate FiO2 07/04/19 12:00 122 07/04/19 08:00 108 07/04/19 08:00 97.7 111 22 104/49 (67) 100 07/04/19 04:00 98.3 119 20 116/61 (79) 97 07/04/19 04:00 131 07/04/19 00:00 98.6 82 20 105/60 (75) 95 07/04/19 00:00 110 07/03/19 20:04 97 Nasal Cannula 2.0 28 07/03/19 20:00 111 07/03/19 20:00 97.7 72 22 97/56 (70) 07/03/19 16:00 100 07/03/19 16:00 97.1 112 20 106/57 (73) 07/03/19 16:00 Nasal Cannula 2.0 Height (Feet): 5 Height (Inches): 3.00 Weight (Pounds): 142 HEENT: other - icterus Respiratory/Chest: lungs clear Cardiovascular: tachycardia, other - RIJ central line Abdomen: distended, other - NG tube feeding Extremities: no edema Neurologic/Psychiatric: other - lethargic Current Medications Medications (Trade) Dose Ordered Sig/[place]alia Route PRN Reason Start Time Stop Time Status Last Admin Dose Admin Acetaminophen (Tylenol) 500 mg Q6H PRN ORAL MILD/TEMP 07/02/19 19:30 07/18/19 19:29 Allopurinol (allopurinoL) 300 mg DAILY NG 07/03/19 09:00 07/31/19 14:29 07/04/19 09:12 Barium Sulfate (Varibar Honey) 250 ml NOW PRN MC RAD 07/03/19 13:45 07/04/19 13:30 Barium Sulfate (Varibar [place]) 240 ml NOW PRN MC RAD 07/03/19 13:45 07/04/19 13:30 Barium Sulfate (Varibar Pudding) 230 ml NOW PRN MC RAD 07/03/19 13:45 07/04/19 13:30 Barium Sulfate (Varibar Thin Liquid powder) 148 gm NOW PRN MC RAD 07/03/19 13:45 07/05/19 13:30 Ceftriaxone Sodium 1 gm/ Dextrose 55 ml @ 110 mls/hr Q24H IVPB 07/03/19 19:30 07/10/19 19:29 07/03/19 20:05 Dextrose (Dextrose 50%) 25 ml Q30M PRN IV Hypoglycemia 07/02/19 19:45 09/17/19 14:33 Dextrose (Dextrose 50%) 50 ml Q30M PRN IV Hypoglycemia 07/02/19 19:45 09/17/19 09:44 Dextrose/Sodium Chloride 1,000 ml @ 75 mls/hr [id number] IV 07/02/19 19:15 07/31/19 13:12 07/04/19 02:13 Insulin Aspart (NovoLOG) BEFORE MEALS AND HS SUBQ 07/02/19 21:00 09/17/19 11:29 07/04/19 13:06 Lactulose (Cephulac) 20 gm THREE TIMES A DAY NG 07/03/19 09:00 07/26/19 08:59 07/04/19 13:10 Midodrine (Pro-Amatine) 10 mg THREE TIMES A DAY NG 07/03/19 09:00 09/30/19 12:59 07/04/19 13:10 Naloxone HCl (Narcan) 0.2 mg Q2M PRN IVP respiratory depression 07/02/19 19:17 09/18/19 11:59 Olanzapine (ZyPREXA) 5 mg BID PRN ORAL agitation 07/03/19 23:45 08/17/19 23:44 Ondansetron HCl (Zofran) 4 mg Q6H PRN IVP Nausea & Vomiting 07/02/19 22:00 08/01/19 09:59 Pantoprazole (Protonix) 40 mg Q12HR IVP 07/02/19 21:00 07/23/19 08:59 07/04/19 09:12 Manuel Kemp MD Jul 04, 2019 13:30
--- NOTE | 2019-07-04 13:45 | Nephrology Progress Note ---
Assessment/Plan Problem List: (1) LEANDRO (acute kidney injury) Assessment: Serum creatinine was up to 1.9 now back to 1.2 (2) Hyperkalemia (3) Liver cirrhosis (4) Liver mass (5) Anemia Assessment - LEANDRO , serum creatinine [place] to 1.6, likely multifactorial, due to underlying liver disease, antibiotics, low blood pressure. - Hyperkalemia - Hypoalbuminemia - Cirrhosis, ? etiology - Large liver mass, suspect CA - poor Px - lung nodules - abd distention, likely ascites - r/o COVID -FTT -Anemia -UTI -DM -gallstones Plan Change NGT feeding to Nepro renal parameters somewhat worsened, serum creatinine is 2.1 Start allopurinol NG tube feeding IV Protonix Antibiotics per ID Monitor renal parameters Midodrine for low blood pressure patient transfused June 25 Hydration as needed Neal catheter Avoid nephrotoxics Follow-up with renal parameters Urine studies Per orders Poor prognosis-now is DNR Subjective ROS Limited/Unobtainable: No Constitutional: Reports: malaise Objective Objective Last 24 Hour Vital Signs Date Time Temp Pulse Resp B/P (MAP) Pulse Ox O2 Delivery O2 Flow Rate FiO2 07/04/19 12:00 97.7 119 24 116/64 (81) 100 07/04/19 12:00 122 07/04/19 08:00 108 07/04/19 08:00 97.7 111 22 104/49 (67) 100 07/04/19 04:00 98.3 119 20 116/61 (79) 97 07/04/19 04:00 131 07/04/19 00:00 98.6 82 20 105/60 (75) 95 07/04/19 00:00 110 07/03/19 20:04 97 Nasal Cannula 2.0 28 07/03/19 20:00 111 07/03/19 20:00 97.7 72 22 97/56 (70) 07/03/19 16:00 100 07/03/19 16:00 97.1 112 20 106/57 (73) 07/03/19 16:00 Nasal Cannula 2.0 Intake and Output 07/03/19 07/04/19 19:00 07:00 Intake Total 1000 ml 55 ml Output Total 200 ml Balance 800 ml 55 ml IV Total 1000 ml 55 ml Output Urine Total 200 ml no labs drawn today Height (Feet): 5 Height (Inches): 3.00 Weight (Pounds): 142 General Appearance: no apparent distress Cardiovascular: tachycardia Respiratory/Chest: decreased breath sounds Abdomen: distended Objective no change Alex Aguilar MD Jul 04, 2019 13:44
--- NOTE | 2019-07-04 14:03 | General Progress Note ---
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 D/w Dr. Cole and he concurred. Subjective Date patient seen: Jul 04, 2019 Time patient seen: 01:30 - pm ROS Limited/Unobtainable: Yes Allergies: Coded Allergies: PENICILLINS (Verified Allergy, Unknown, 06/18/19) Subjective Patient showing no signs of pain or distress. Now DNR/DNI. Pending hospice eval. Tramadol was discontinued. Objective Last 24 Hour Vital Signs Date Time Temp Pulse Resp B/P (MAP) Pulse Ox O2 Delivery O2 Flow Rate FiO2 07/04/19 12:00 97.7 119 24 116/64 (81) 100 07/04/19 12:00 122 07/04/19 08:00 108 07/04/19 08:00 97.7 111 22 104/49 (67) 100 07/04/19 04:00 98.3 119 20 116/61 (79) 97 07/04/19 04:00 131 07/04/19 00:00 98.6 82 20 105/60 (75) 95 07/04/19 00:00 110 07/03/19 20:04 97 Nasal Cannula 2.0 28 07/03/19 20:00 111 07/03/19 20:00 97.7 72 22 97/56 (70) 07/03/19 16:00 100 07/03/19 16:00 97.1 112 20 106/57 (73) 07/03/19 16:00 Nasal Cannula 2.0 Intake and Output 07/03/19 07/04/19 19:00 07:00 Intake Total 1000 ml 55 ml Output Total 200 ml Balance 800 ml 55 ml IV Total 1000 ml 55 ml Output Urine Total 200 ml Height (Feet): 5 Height (Inches): 3.00 Weight (Pounds): 142 Objective General Appearance: no apparent distress Neck: non-tender, normal alignment Cardiovascular: normal rate, regular rhythm Abdomen: distended Extremities: non-tender Edema: trace edema Joey Gilmore Jul 04, 2019 14:03
[2019-07-04] MEDS ORDERED: NS 275ml ONE (14:28)
[2019-07-04] MEDS ORDERED: Tubing Blood Filter IV ONE (14:28)
[2019-07-04] MEDS ORDERED: Tubing IV Secondary IV ONE (14:28)
[2019-07-04] MEDS ORDERED: D5W 275ml ONE (14:28)
[2019-07-04] MEDS ORDERED: D5NS 1000ml IV ONE (14:28)
--- NOTE | 2019-07-04 14:48 | Surgery Progress Note ---
Surgery Progress Note Subjective Additional Comments ill appearing distended plan for repeat para for comfort soon Objective Last 24 Hour Vital Signs Date Time Temp Pulse Resp B/P (MAP) Pulse Ox O2 Delivery O2 Flow Rate FiO2 07/04/19 12:00 97.7 119 24 116/64 (81) 100 07/04/19 12:00 122 07/04/19 08:00 108 07/04/19 08:00 97.7 111 22 104/49 (67) 100 07/04/19 04:00 98.3 119 20 116/61 (79) 97 07/04/19 04:00 131 07/04/19 00:00 98.6 82 20 105/60 (75) 95 07/04/19 00:00 110 07/03/19 20:04 97 Nasal Cannula 2.0 28 07/03/19 20:00 111 07/03/19 20:00 97.7 72 22 97/56 (70) 07/03/19 16:00 100 07/03/19 16:00 97.1 112 20 106/57 (73) 07/03/19 16:00 Nasal Cannula 2.0 I&O Intake and Output 07/03/19 07/04/19 19:00 07:00 Intake Total 1000 ml 55 ml Output Total 200 ml Balance 800 ml 55 ml IV Total 1000 ml 55 ml Output Urine Total 200 ml Dressing: other Wound: other Drains: other Cardiovascular: RSR Respiratory: decreased breath sounds Abdomen: soft, distended, tenderness, non-distended, decreased bowel sounds Extremities: no tenderness, no cyanosis, other Plan Problems: (1) Abdominal pain Assessment & Plan: [age]-year-old female multiple medical comorbidities presented with abdominal discomfort noted to have abnormal LFTs leukocytosis. CT reviewed liver cirrhotic and there is a mass. Possibly carcinoma likely. HCC. Abdominal exam without peritonitis no acute surgical intervention indicated recommended at this time supportive treatment. Will follow with recommendations thank you tumor markers show afp 155, cea 26, ca19.9 1660 Consider comfort care/hospice can consider biopsy for diagnosis but unfortunately will unlikely help as advanced disease and given differential likely terminal Will follow with recommendations Covid results negative Lower thorax: Unremarkable lung bases. Intraperitoneal space: No free air. Gastrointestinal tract: Unremarkable. No dilation. Bones/joints: Degenerative spine findings and osteopenia. Tubes, lines and devices: Enteric tube with tip and proximal sideport below the gastroesophageal junction. IMPRESSION: 1. Enteric tube with tip and proximal sideport below the gastroesophageal junction. 2. Unremarkable lung bases. 3. No acute abnormality definitively seen. GI placed feeding tube cont feeds as tolerated severe anemia - gi blood loss? transfuse as per heme trend s/p para will monitor exam Thank you Pt presented on admission with multiple skin breakdown. Non-blanching erythema without induration.(L)7cm x (W)9cm . L heel is boggy with non-blanchable erythema(L)5.5cm x (W)4.5cm. R heel is boggy with non-blanchable erythema(L)6cm x (W)5.3cm. Pt did not exhibit any distress to indicate pain when each heel individually palpated. Tx.Plan: Apply Moisture Barrier Paste to Sacrum. Cover with Optifoam drsg. Change every 3 days and prn. Apply Cavilon Skin Barrier to both Heels. Cover each Heel with Optifoam drsg. change every 7 days and prn. Reposition at least every 2hours or as tolerated. Off-load heels with pillow. The liver is cirrhotic. There is evidence of portal hypertension including splenomegaly and gastric varices. There is a mass in the left lobe, primarily in the lateral segments, but also extending medially. This measures 7.7 x 5 x 4.8 cm in greatest transverse, anteroposterior, and craniocaudal dimensions respectively. This is hypodense/hypoenhancing compared to relatively normal adjacent parenchyma in the portal venous phase. This could reflect early washout of a hepatocellular carcinoma, particularly given cirrhosis. A large metastasis is also possible. Cholelithiasis. 2.2 cm densely calcified stone in the dependent gallbladder. No biliary ductal dilation. Both kidneys demonstrate multiple hypodense lesions, which are too small to characterize. No hydronephrosis. There is no bowel obstruction or perforation. The appendix is not well seen. Leftward pelvic calcification may reflect a subserosal uterine fibroid. No abdominal aortic aneurysm. No acute fracture. IMPRESSION: 7.7 cm left lobe hepatic mass is concerning for hepatocellular carcinoma, particularly given cirrhosis. A large metastasis is also possible. Consider multiphase hepatic protocol MRI. Right renal hypodensities that are too small to characterize. Cholelithiasis. code status changed hospice please para for comfort today she is very very distended and firm from fluid Technique: Ultrasound used to localize optimal puncture site. Sterile prepping and draping right lower quadrant. Local anesthesia with 1% lidocaine. Under real- time ultrasound guidance, puncture peritoneal space using paracentesis needle. Stylet removed. Catheter placed to vacuum bottle suction. Total 7 liters of bloody fluid aspirated. Patient tolerated procedure well, without immediate complication. Findings: Followup sonography demonstrates complete resolution of peritoneal fluid. Impression: Successful ultrasound-guided paracentesis, yielding 7 liters of fluid repeat para for comfort prn hospice family decision pending [place] Jul 04, 2019 14:48
[2019-07-04 16:00] VITALS: BP 111/61
--- NOTE | 2019-07-04 19:00 | NUR ---
NURSE NOTES: Received report from AROLDO Michel. Patient is awake, eyes open, lying in freeman's; resting comfortably. No signs of pain nor acute distress noted. Checked IV site and flushed. No erythema, bleeding or infiltration noted. NGT patent with no gastric residual volume, with Glucerna 1.2 @50mls/hr. On fall and aspiration risk precaution. On bilateral soft wrist restraints with good CMS. Padded siderails for seizure precaution. Bed at lowest position, brakes on, bed alarm on, siderails x3. Call light within reach. Will continue to monitor. Addendum: 07/05/19 at 0140 by Silke Banuelos RN NURSE NOTES: On dominguez catheter draining well to gravity.
--- NOTE | 2019-07-04 19:58 | NUR ---
HAND-OFF: Report given to Silke Banuelos RN. Patient sitting HOB at 45 degrees, on 2 liters nasal cannul, right IJ in place running D5 1/2 NS@75cc/hour, NG Tube in place, Neal catheter in place, bed in lowest position, call light within reach, bilateral soft wrist restraints in place, in no apparent distress, siderails up x 3, padded for seizure precaution.
[2019-07-04 20:00] VITALS: BP 108/64
[2019-07-04] MEDS: cefTRIAXone 1 GM in D5W 55 ML IVPB SCH (20:20)
--- NOTE | 2019-07-04 20:22 | General Progress Note ---
Assessment/Plan Problem List: (1) Dehydration ICD Codes: E86.0 - Dehydration SNOMED: 76686367 (2) Hypoxia ICD Codes: R09.02 - Hypoxemia SNOMED: 741975932 (3) Abdominal pain ICD Codes: R10.9 - Unspecified abdominal pain SNOMED: 80188276 Qualifiers: Qualified Codes: R10.9 - Unspecified abdominal pain (4) Pneumonia ICD Codes: J18.9 - Pneumonia, unspecified organism SNOMED: 328432652 Qualifiers: Qualified Codes: J18.9 - Pneumonia, unspecified organism (5) HCC (hepatocellular carcinoma) ICD Codes: C22.0 - Liver cell carcinoma SNOMED: 413595157 Assessment/Plan: dehydration pna favor comfort care cirrhosis mets cancer HCC niddm Arf improving Subjective ROS Limited/Unobtainable: Yes Allergies: Coded Allergies: PENICILLINS (Verified Allergy, Unknown, 06/18/19) Objective Last 24 Hour Vital Signs Date Time Temp Pulse Resp B/P (MAP) Pulse Ox O2 Delivery O2 Flow Rate FiO2 07/04/19 16:00 132 07/04/19 16:00 97.9 125 24 111/61 (78) 96 07/04/19 12:00 97.7 119 24 116/64 (81) 100 07/04/19 12:00 122 07/04/19 08:00 108 07/04/19 08:00 97.7 111 22 104/49 (67) 100 07/04/19 04:00 98.3 119 20 116/61 (79) 97 07/04/19 04:00 131 07/04/19 00:00 98.6 82 20 105/60 (75) 95 07/04/19 00:00 110 Intake and Output 07/03/19 07/04/19 19:00 07:00 Intake Total 1000 ml 130 ml Output Total 200 ml Balance 800 ml 130 ml IV Total 1000 ml 130 ml Output Urine Total 200 ml Height (Feet): 5 Height (Inches): 3.00 Weight (Pounds): 142 General Appearance: confused Era Acuña MD Jul 04, 2019 20:22
[2019-07-05] VITALS: BP 107/57
[2019-07-05] MEDS: D5 1/4NS 1000ml 1,000 ML IV SCH (00:24)
--- NOTE | 2019-07-05 03:20 | NUR ---
NURSE NOTES: Called patient's son and left message for US guided paracentesis consent. Awaiting for callback.
[2019-07-05 04:00] VITALS: BP 111/58
--- NOTE | 2019-07-05 04:30 | NUR ---
NURSE NOTES: Resting throughout the night. No significant change of condition noted. Will continue to monitor.
--- NOTE | 2019-07-05 05:00 | NUR ---
NURSE NOTES: Consent taken and spoke with Anmol Lopez (son), with regards to patient's procedure confirmed by 2 RNs. Consent placed on chart.
[2019-07-05] MEDS: NovoLOG Insulin Flexpen SUBQ SCH ×3 (06:16→16:30)
--- NOTE | 2019-07-05 07:00 | NUR ---
HAND-OFF: Report given to AROLDO Wadsworth. Plan of care endorsed.
[2019-07-05 07:20] LABS: ALANINE AMINOTRANSFERASE 36 U/L (12-78); ALBUMIN 2.1 G/DL (3.4-5.0); ALBUMIN/GLOBULIN RATIO 0.5 (1.0-2.7); ALKALINE PHOSPHATASE 205 U/L (46-116); ANION GAP 21 mmol/L (5-15); ASPARTATE AMINO TRANSFERASE 70 U/L (15-37); BILIRUBIN,TOTAL 2.3 MG/DL (0.2-1.0); BLOOD UREA NITROGEN 107 mg/dL (7-18); CALCIUM 7.5 MG/DL (8.5-10.1); CARBON DIOXIDE 10 MMOL/L (21-32); CHLORIDE 102 MMOL/L (98-107); CREATININE 3.9 MG/DL (0.55-1.30); SODIUM 132 MMOL/L (136-145)
--- NOTE | 2019-07-05 07:22 | NUR ---
NURSE NOTES: pt in bed AOx1. Pt has NGT, feeding on hold for today's paracentesis. pvc monitor on, no signs of cardiac or respiratory distress at this time. Call light within reach, bed in lowest position and locked, bed alarm on side rails up x2. Pt is on restraints. Will continue to monitor pt .
[2019-07-05 07:29] LABS: BILIRUBIN,DIRECT 1.4 MG/DL (0.0-0.3); POTASSIUM 6.2 MMOL/L (3.5-5.1)
--- NOTE | 2019-07-05 07:50 | NUR ---
NURSE NOTES: pt restrains are off now.
[2019-07-05 08:00] VITALS: BP 127/97
[2019-07-05] MEDS ORDERED: Sodium Polystyrene Sulfonate 15gm Powder ORAL SCH (08:00)
--- NOTE | 2019-07-05 08:53 | General Progress Note ---
Assessment/Plan Assessment/Plan: Assessment/Plan Assessment/Plan: Assessment - Cirrhosis, ? etiology - Large liver mass, suspect CA - poor Px - lung nodules - abd distention, ascites -FTT -Anemia -UTI -DM -gallstones -GV Recommendations - Cirrhsis w/u ([facility]BV, [facility], [facility], [facility]HC) -low dose Propranolol -tumor markers reviewed>>>? cholangio CA with liver mets _ s/p EGD>>> gastric varices -s/p paracentesis 7 lit lactulose poor prognosis NGTF pending family plans for hospice paracentesis for comfort Subjective ROS Limited/Unobtainable: No Allergies: Coded Allergies: PENICILLINS (Verified Allergy, Unknown, 06/18/19) Objective Last 24 Hour Vital Signs Date Time Temp Pulse Resp B/P (MAP) Pulse Ox O2 Delivery O2 Flow Rate FiO2 07/05/19 04:00 97.4 110 18 111/58 (75) 97 07/05/19 04:00 108 07/05/19 00:00 115 07/05/19 00:00 98.3 116 18 107/57 (74) 99 07/04/19 21:00 Nasal Cannula 2.0 07/04/19 20:00 96.6 123 20 108/64 (79) 98 07/04/19 20:00 118 07/04/19 16:00 132 07/04/19 16:00 97.9 125 24 111/61 (78) 96 07/04/19 12:00 97.7 119 24 116/64 (81) 100 07/04/19 12:00 122 Intake and Output 07/04/19 07/05/19 19:00 07:00 Intake Total 1230 ml 1030 ml Output Total 7240 ml 120 ml Balance -6010 ml 910 ml Free Water 120 ml 60 ml IV Total 950 ml 720 ml Tube Feeding 100 ml 250 ml Other 60 ml Output Urine Total 200 ml 120 ml Emesis 40 ml Estimated Blood Loss 0 ml Other 7000 ml # Voids 1 # Bowel Movements 1 1 Laboratory Tests 07/05/19 05:35: White Blood Count [Pending], Red Blood Count [Pending], Hemoglobin [Pending], Hematocrit [Pending], Mean Corpuscular Volume [Pending], Mean Corpuscular Hemoglobin [Pending], Mean Corpuscular Hemoglobin Concent [Pending], Red Cell Distribution Width [Pending], Platelet Count [Pending], Mean Platelet Volume [ Pending], Neutrophils (%) (Auto) [Pending], Lymphocytes (%) (Auto) [Pending], Monocytes (%) (Auto) [Pending], Eosinophils (%) (Auto) [Pending], Basophils (%) (Auto) [Pending], Sodium Level 132L, Potassium Level 6.2*H, Chloride Level 102, Carbon Dioxide Level 10L, Anion Gap 21H, Blood Urea Nitrogen 107H, Creatinine 3.9H, Estimat Glomerular Filtration Rate 11.5, Glucose Level 353H, Uric Acid 11.8H, Calcium Level 7.5L, Phosphorus Level 7.0H, Magnesium Level 3.4H, Total Bilirubin 2.3H, Direct Bilirubin 1.4H, Aspartate Amino Transf (AST/SGOT) 70H, Alanine Aminotransferase (ALT/SGPT) 36, Alkaline Phosphatase 205H, Total Protein 6.0L, Albumin 2.1L, Globulin 3.9, Albumin/Globulin Ratio 0.5L Height (Feet): 5 Height (Inches): 3.00 Weight (Pounds): 135 General Appearance: lethargic EENT: normal ENT inspection Neck: supple Cardiovascular: normal rate Respiratory/Chest: decreased breath sounds Abdomen: normal bowel sounds, non tender, soft Extremities: non-tender Howard Childers MD Jul 05, 2019 08:53
[2019-07-05 08:56] LABS: HEMATOCRIT 27.7 % (37.0-47.0); HEMOGLOBIN 8.6 G/DL (12.0-16.0); MEAN CORPUSCULAR VOLUME 102 FL (80-99); PLATELET COUNT 64 K/UL (150-450); RED BLOOD COUNT 2.72 M/UL (4.20-5.40); RED CELL DISTRIBUTION WIDTH 18.8 % (11.6-14.8)
[2019-07-05 09:02] LABS: WHITE BLOOD COUNT 30.4 K/UL (4.8-10.8)
--- NOTE | 2019-07-05 09:31 | NUR ---
RD ASSESSMENT & RECOMMENDATIONS SEE CARE ACTIVITY FOR COMPLETE ASSESSMENT DAILY ESTIMATED NEEDS: Needs based on hepatic, pulmonary 61.8kg 25-30 kcals/kg 7245-6327 total kcals 1-1.5 g protein/kg 62-93 g total protein 25-30 mL/kg 9460-8876 total fluid mLs NUTRITION DIAGNOSIS: Swallowing difficulty r/t dysphagia, confusion as evidenced by [employer] julio, previously on puree texture w/ poor po intake, on NGT feeds. (CURRENT TF: Nepro @30ml/hr) ENTERAL NUTRITION RECOMMENDATIONS: NEPRO @36ml/hr x24 hrs to provide 864ml, 1555 kcal, 70g pro, 628ml free H2O * Initiate Nepro @26ml/hr for 6 hrs, advance TF 5ml q 4-6 hrs as tolerated to goal rate * HOB over 30 degrees, Flush per MD * TF @ goal meets 100% est kcal/prot needs ADDITIONAL RECOMMENDATIONS: 1) W/ TF, monitor lytes daily, replete as needed (high risk for refeeding) 2) Monitor for hypoglycemia while NPO- consider maintaining D5 while NPO 3) Monitor need for long acting insulin w/ TF 4) Calibrated bed scale wts 5) Monitor tolerance to TF . .
--- NOTE | 2019-07-05 09:45 | NUR ---
CASE MANAGEMENT:REVIEW 07/05/19 SI: PNA. HYPOXIA. DEHYDRATION HEPATOCELLULAR CARCINOMA. COVID 19 NOT DETECTED 97.4 110 28 127/97 100% ON 2L WBC+30.4 PLT-64 K+6.2 BUN+107 CR+3.9 IS: IV OCTREOTIDE GTT ZYPREXA PO BID IV PROTONIX QD MIDODRINE PO TID LACTULOSE PO TID INDERAL PO Q8HRS SSI SQ AC+HS : TELEMETRY STATUS DCP: FROM [facility] CONV PLAN:
[2019-07-05] MEDS ORDERED: SandoSTATIN 50mcg Inj IVP SCH ×2 (10:00→11:00)
[2019-07-05] MEDS: Pantoprazole Inj IVP SCH (10:13)
[2019-07-05] MEDS: Lactulose 20gm/30ml UDC NG SCH ×2 (10:13→13:00)
[2019-07-05] MEDS: Midodrine 10mg tab NG SCH ×2 (10:13→13:00)
--- NOTE | 2019-07-05 10:32 | Infectious Diseases Prog Note ---
Assessment/Plan Assessment/Plan IMPRESSION: Hypoxemia and abnormal CT scan of the chest, more likely metastatic disease. Cirrhosis of liver Portal hypertension, Diabetes mellitus, Hypertension, Cholelithiasis, Anemia, suspected liver neoplasm. Gastric varices Acute renal failure RECOMMENDATION: Continue Rocephin 06/17, 06/22 COVID19 test. Prognosis is poor Patient become DNR Subjective ROS Limited/Unobtainable: Yes Allergies: Coded Allergies: PENICILLINS (Verified Allergy, Unknown, 06/18/19) Objective Vital Signs Last 24 Hour Vital Signs Date Time Temp Pulse Resp B/P (MAP) Pulse Ox O2 Delivery O2 Flow Rate FiO2 07/05/19 08:00 97.4 110 28 127/97 (107) 100 07/05/19 04:00 97.4 110 18 111/58 (75) 97 07/05/19 04:00 108 07/05/19 00:00 115 07/05/19 00:00 98.3 116 18 107/57 (74) 99 07/04/19 21:00 Nasal Cannula 2.0 07/04/19 20:00 96.6 123 20 108/64 (79) 98 07/04/19 20:00 118 07/04/19 16:00 132 07/04/19 16:00 97.9 125 24 111/61 (78) 96 07/04/19 12:00 97.7 119 24 116/64 (81) 100 07/04/19 12:00 122 Height (Feet): 5 Height (Inches): 3.00 Weight (Pounds): 135 HEENT: mucous membranes moist, other - icterus Respiratory/Chest: rhonchi - bilaterally Cardiovascular: tachycardia Abdomen: distended, other - NG tube Extremities: no edema Neurologic/Psychiatric: other - lethargic Laboratory Tests Test 07/05/19 05:35 White Blood Count 30.4 K/UL (4.8-10.8) *H Red Blood Count 2.72 M/UL (4.20-5.40) L Hemoglobin 8.6 G/DL (12.0-16.0) L Hematocrit 27.7 % (37.0-47.0) L Mean Corpuscular Volume 102 FL (80-99) H Mean Corpuscular Hemoglobin 31.7 PG (27.0-31.0) H Mean Corpuscular Hemoglobin Concent 31.1 G/DL (32.0-36.0) L Red Cell Distribution Width 18.8 % (11.6-14.8) H Platelet Count 64 K/UL (150-450) L Mean Platelet Volume 8.2 FL (6.5-10.1) Neutrophils (%) (Auto) % (45.0-75.0) Lymphocytes (%) (Auto) % (20.0-45.0) Monocytes (%) (Auto) % (1.0-10.0) Eosinophils (%) (Auto) % (0.0-3.0) Basophils (%) (Auto) % (0.0-2.0) Differential Total Cells Counted 100 Neutrophils % (Manual) 89 % (45-75) H Lymphocytes % (Manual) 5 % (20-45) L Monocytes % (Manual) 4 % (1-10) Eosinophils % (Manual) 1 % (0-3) Basophils % (Manual) 0 % (0-2) Band Neutrophils 1 % (0-8) Nucleated Red Blood Cells 2 /100 WBC Platelet Estimate Decreased L Platelet Morphology Normal Hypochromasia 1+ Anisocytosis 2+ Macrocytosis 1+ Sodium Level 132 MMOL/L (136-145) L Potassium Level 6.2 MMOL/L (3.5-5.1) *H Chloride Level 102 MMOL/L (98-107) Carbon Dioxide Level 10 MMOL/L (21-32) L Anion Gap 21 mmol/L (5-15) H Blood Urea Nitrogen 107 mg/dL (7-18) H Creatinine 3.9 MG/DL (0.55-1.30) H Estimat Glomerular Filtration Rate 11.5 mL/min (>60) Glucose Level 353 MG/DL (74-106) H Uric Acid 11.8 MG/DL (2.6-7.2) H Calcium Level 7.5 MG/DL (8.5-10.1) L Phosphorus Level 7.0 MG/DL (2.5-4.9) H Magnesium Level 3.4 MG/DL (1.8-2.4) H Total Bilirubin 2.3 MG/DL (0.2-1.0) H Direct Bilirubin 1.4 MG/DL (0.0-0.3) H Aspartate Amino Transf (AST/SGOT) 70 U/L (15-37) H Alanine Aminotransferase (ALT/SGPT) 36 U/L (12-78) Alkaline Phosphatase 205 U/L (46-116) H Total Protein 6.0 G/DL (6.4-8.2) L Albumin 2.1 G/DL (3.4-5.0) L Globulin 3.9 g/dL Albumin/Globulin Ratio 0.5 (1.0-2.7) L Current Medications Medications (Trade) Dose Ordered Sig/Idalia Route PRN Reason Start Time Stop Time Status Last Admin Dose Admin Acetaminophen (Tylenol) 500 mg Q6H PRN ORAL MILD/TEMP 07/02/19 19:30 07/18/19 19:29 Allopurinol (allopurinoL) 300 mg DAILY NG 07/03/19 09:00 07/31/19 14:29 07/05/19 10:13 Barium Sulfate (Varibar Thin Liquid powder) 148 gm NOW PRN MC RAD 07/03/19 13:45 07/05/19 13:30 Ceftriaxone Sodium 1 gm/ Dextrose 55 ml @ 110 mls/hr Q24H IVPB 07/03/19 19:30 07/10/19 19:29 07/04/19 20:20 Dextrose (Dextrose 50%) 25 ml Q30M PRN IV Hypoglycemia 07/02/19 19:45 09/17/19 14:33 Dextrose (Dextrose 50%) 50 ml Q30M PRN IV Hypoglycemia 07/02/19 19:45 09/17/19 09:44 Insulin Aspart (NovoLOG) BEFORE MEALS AND HS SUBQ 07/02/19 21:00 09/17/19 11:29 07/05/19 06:16 Lactulose (Cephulac) 20 gm THREE TIMES A DAY NG 07/03/19 09:00 07/26/19 08:59 07/05/19 10:13 Midodrine (Pro-Amatine) 5 mg TID ORAL 07/05/19 13:00 10/03/19 12:59 Midodrine (Pro-Amatine) 10 mg THREE TIMES A DAY NG 07/03/19 09:00 09/30/19 12:59 07/05/19 10:13 Naloxone HCl (Narcan) 0.2 mg Q2M PRN IVP respiratory depression 07/02/19 19:17 09/18/19 11:59 Octreotide Acetate 500 mcg/ Sodium Chloride 500 ml @ 50 mls/hr Q10H IV 07/05/19 11:00 08/04/19 10:59 Octreotide Acetate (SandoSTATIN) 50 mcg ONCE IVP 07/05/19 11:00 07/05/19 12:30 Olanzapine (ZyPREXA) 5 mg BID PRN ORAL agitation 07/03/19 23:45 08/17/19 23:44 Ondansetron HCl (Zofran) 4 mg Q6H PRN IVP Nausea & Vomiting 07/02/19 22:00 08/01/19 09:59 Pantoprazole (Protonix) 40 mg Q12HR IVP 07/02/19 21:00 07/23/19 08:59 07/05/19 10:13 Manuel Kemp MD Jul 05, 2019 10:32
--- NOTE | 2019-07-05 10:36 | Pulmonology Progress Note ---
Assessment/Plan Assessment/Plan IMPRESSION: 1. Probable metastatic pulmonary disease. 2. Negative COVID-19. 3. Hepatocellular mass. Likely carcinoma 4. Schizophrenia. 5. Diabetes mellitus. 6. Anemia; now corrected DISCUSSION: Continue O2 prn CXR no change; looks clear Discussed with Gastroenterology. Repeat COVID 19 negative Agree with hospice Appears pre-terminal Trip Martines M.D. Subjective Interval Events: None new Constitutional: Reports: no symptoms HEENT: Repors: no symptoms Respiratory: Reports: no symptoms Cardiovascular: Reports: no symptoms Allergies: Coded Allergies: PENICILLINS (Verified Allergy, Unknown, 06/18/19) Objective Last 24 Hour Vital Signs Date Time Temp Pulse Resp B/P (MAP) Pulse Ox O2 Delivery O2 Flow Rate FiO2 07/05/19 08:00 97.4 110 28 127/97 (107) 100 07/05/19 04:00 97.4 110 18 111/58 (75) 97 07/05/19 04:00 108 07/05/19 00:00 115 07/05/19 00:00 98.3 116 18 107/57 (74) 99 07/04/19 21:00 Nasal Cannula 2.0 07/04/19 20:00 96.6 123 20 108/64 (79) 98 07/04/19 20:00 118 07/04/19 16:00 132 07/04/19 16:00 97.9 125 24 111/61 (78) 96 07/04/19 12:00 97.7 119 24 116/64 (81) 100 07/04/19 12:00 122 Intake and Output 07/04/19 07/05/19 19:00 07:00 Intake Total 1230 ml 1030 ml Output Total 7240 ml 120 ml Balance -6010 ml 910 ml Free Water 120 ml 60 ml IV Total 950 ml 720 ml Tube Feeding 100 ml 250 ml Other 60 ml Output Urine Total 200 ml 120 ml Emesis 40 ml Estimated Blood Loss 0 ml Other 7000 ml # Voids 1 # Bowel Movements 1 1 General Appearance: no acute distress HEENT: normocephalic Respiratory/Chest: chest wall non-tender Cardiovascular: normal peripheral pulses Abdomen: normal bowel sounds Laboratory Tests 07/05/19 05:35: White Blood Count 30.4*H, Red Blood Count 2.72L, Hemoglobin 8.6L, Hematocrit 27.7L, Mean Corpuscular Volume 102H, Mean Corpuscular Hemoglobin 31.7H, Mean Corpuscular Hemoglobin Concent 31.1L, Red Cell Distribution Width 18.8H, Platelet Count 64L, Mean Platelet Volume 8.2, Neutrophils (%) (Auto) , Lymphocytes (%) (Auto) , Monocytes (%) (Auto) , Eosinophils (%) (Auto) , Basophils (%) (Auto) , Differential Total Cells Counted 100, Neutrophils % ( Manual) 89H, Lymphocytes % (Manual) 5L, Monocytes % (Manual) 4, Eosinophils % ( Manual) 1, Basophils % (Manual) 0, Band Neutrophils 1, Nucleated Red Blood Cells 2, Platelet Estimate DecreasedL, Platelet Morphology Normal, Hypochromasia 1+, Anisocytosis 2+, Macrocytosis 1+, Sodium Level 132L, Potassium Level 6.2*H, Chloride Level 102, Carbon Dioxide Level 10L, Anion Gap 21H, Blood Urea Nitrogen 107H, Creatinine 3.9H, Estimat Glomerular Filtration Rate 11.5, Glucose Level 353H, Uric Acid 11.8H, Calcium Level 7.5L, Phosphorus Level 7.0H, Magnesium Level 3.4H, Total Bilirubin 2.3H, Direct Bilirubin 1.4H, Aspartate Amino Transf (AST/SGOT) 70H, Alanine Aminotransferase (ALT/SGPT) 36, Alkaline Phosphatase 205H, Total Protein 6.0L, Albumin 2.1L, Globulin 3.9, Albumin/Globulin Ratio 0.5L Current Medications Medications (Trade) Dose Ordered Sig/Idalia Route PRN Reason Start Time Stop Time Status Last Admin Dose Admin Acetaminophen (Tylenol) 500 mg Q6H PRN ORAL MILD/TEMP 07/02/19 19:30 07/18/19 19:29 Allopurinol (allopurinoL) 300 mg DAILY NG 07/03/19 09:00 07/31/19 14:29 07/05/19 10:13 Barium Sulfate (Varibar Thin Liquid powder) 148 gm NOW PRN MC RAD 07/03/19 13:45 07/05/19 13:30 Ceftriaxone Sodium 1 gm/ Dextrose 55 ml @ 110 mls/hr Q24H IVPB 07/03/19 19:30 07/10/19 19:29 07/04/19 20:20 Dextrose (Dextrose 50%) 25 ml Q30M PRN IV Hypoglycemia 07/02/19 19:45 09/17/19 14:33 Dextrose (Dextrose 50%) 50 ml Q30M PRN IV Hypoglycemia 07/02/19 19:45 09/17/19 09:44 Insulin Aspart (NovoLOG) BEFORE MEALS AND HS SUBQ 07/02/19 21:00 09/17/19 11:29 07/05/19 06:16 Lactulose (Cephulac) 20 gm THREE TIMES A DAY NG 07/03/19 09:00 07/26/19 08:59 07/05/19 10:13 Midodrine (Pro-Amatine) 5 mg TID ORAL 07/05/19 13:00 10/03/19 12:59 Midodrine (Pro-Amatine) 10 mg THREE TIMES A DAY NG 07/03/19 09:00 09/30/19 12:59 07/05/19 10:13 Naloxone HCl (Narcan) 0.2 mg Q2M PRN IVP respiratory depression 07/02/19 19:17 09/18/19 11:59 Octreotide Acetate 500 mcg/ Sodium Chloride 500 ml @ 50 mls/hr Q10H IV 07/05/19 11:00 08/04/19 10:59 Octreotide Acetate (SandoSTATIN) 50 mcg ONCE IVP 07/05/19 11:00 07/05/19 12:30 Olanzapine (ZyPREXA) 5 mg BID PRN ORAL agitation 07/03/19 23:45 08/17/19 23:44 Ondansetron HCl (Zofran) 4 mg Q6H PRN IVP Nausea & Vomiting 07/02/19 22:00 08/01/19 09:59 Pantoprazole (Protonix) 40 mg Q12HR IVP 07/02/19 21:00 07/23/19 08:59 07/05/19 10:13 Trip Martines MD Jul 05, 2019 10:36
[2019-07-05] MEDS ORDERED: Sandostatin 500mcg in NS 500ml IV SCH (11:00)
--- NOTE | 2019-07-05 11:20 | NUR ---
INSURANCE REVIEW FAXED TO [facility]#[phone] FAX#[phone] REVIEWS/CLINICALS
--- NOTE | 2019-07-05 12:47 | Hematology/Onc Progress Note ---
Assessment/Plan Assessment/Plan Assessment and Recs # 7.7 cm left lobe hepatic mass is concerning for hepatocellular carcinoma, particularly given cirrhosis. A large metastasis is also possible. Consider multiphase hepatic protocol MRI. --> also imaging revealed Right renal hypodensities that are too small to characterize. --> seen by gi and surg --> tumor markers show afp 155, cea 26, ca19.9 1660 --> if afp >200, likely hcc, may still need mri --> at this time, given poor prognosis, would recommend no biopsy --> agree with gi is likely cholangio v hcc v pancreatic with mets --> HOSPICE RECOMMENDED AND [facility], they in agreement # Pancytopenia -- multiple etiologies and in this case is related to cirrhosis --> peripheral smear has been ordered and does not show significant abnormalities --> Medications have been reviewed --> Continue to monitor for improvement, trend cbc --> Hep panel and HIV NEGATIVE --> US abd ordered to r/o cirrhosis and hepatosplenomegaly --> DOES SHOW SPLENOMEGALY AND CIRRHOSIS++ --> reverse isolation if ANC is <2000 --> Give neupogen if ANC <1000 --> Transfuse if hgb <7 --> plt 113-->51-->34k-->61-->66->56->64k --> prbc: 2 units 06/26/2019 --> continue on psych meds olanzapine # FTT may need nutrition support --> when off iso may need peg --> abx: ceftriaxone --> alia positive # Coagulopathy - Cirrhosis, ? etiology --> likely will need ffp and vit k if bleeds --> likely to be a chronic issue with cirrhosis # Abd distention, likely ascites --> also r/o COVID-->NEG --> isolation --> s/p para # Dysphagia with ng++ # Dvt ppx scds The timing of this note does not necessarily reflect the time of the patient was seen. Greatly appreciate consultation. Subjective Constitutional: Denies: no symptoms, chills, fever, malaise, weakness, other HEENT: Denies: no symptoms, eye pain, blurred vision, tearing, double vision, ear pain, ear discharge, nose pain, nose congestion, throat pain, throat swelling, mouth pain, mouth swelling, other Cardiovascular: Denies: no symptoms, chest pain, edema, irregular heart rate, lightheadedness, palpitations, syncope, other Respiratory: Denies: no symptoms, cough, shortness of breath, SOB with excertion, SOB at rest, sputum, wheezing, other Gastrointestinal/Abdominal: Denies: no symptoms, abdomen distended, abdominal pain, black stools, tarry stools, blood in stool, constipated, diarrhea, difficulty swallowing, nausea, poor appetite, poor fluid intake, rectal bleeding , vomiting, other Genitourinary: Denies: no symptoms, burning, discharge, frequency, flank pain, hematuria, incontinence, pain, urgency, other Neurologic/Psychiatric: Denies: no symptoms, anxiety, depressed, emotional problems, headache, numbness, paresthesia, pre-existing deficit, seizure, tingling, tremors, weakness, other Endocrine: Denies: no symptoms, excessive sweating, flushing, intolerance to cold, intolerance to heat, increased hunger, increased thirst, increased urine, unexplained weight gain, unexplained weight loss, other Hematologic/Lymphatic: Denies: no symptoms, anemia, easy bleeding, easy bruising, adenopathy, other Allergies: Coded Allergies: PENICILLINS (Verified Allergy, Unknown, 06/18/19) Subjective 06/20 no events, no bleeding, tumor markers still pending, imaging noted 06/21 still somewhat confused this am, trying to crawl out of bed, no bleeding or chills 06/22 seen by gi for peg when off iso, no bleeding, plt 118k 06/23 no events, no bleeding, labs noted, cbc reviewed, no night sweats, uncomfortable still 06/24 covid 19 negative, labs reviewed, afebrile, on ceftriaxone 06/26 s/p 2 units rbc, hgb 8.9, stool ob negative, on abx 06/27 plt are low, remains guarded, prognosis is poor, dw gi 06/28 confused, restraints, labs reviewed, nc 2l 06/29 no major changes, remains confused, with restraitns, labs noted 06/30 no events, no bleeding, no f/c, no night sweats, labs noted hgb 8.2, remains agitated 07/01 remains critically ill, no major events, no night sweats, labs noted, on hospice 07/04 no major changes, appears preterminal, agree with hospice Objective Objective Current Medications Medications (Trade) Dose Ordered Sig/Idalia Route PRN Reason Start Time Stop Time Status Last Admin Dose Admin Acetaminophen (Tylenol) 500 mg Q6H PRN ORAL MILD/TEMP 07/02/19 19:30 07/18/19 19:29 Allopurinol (allopurinoL) 300 mg DAILY NG 07/03/19 09:00 07/31/19 14:29 07/05/19 10:13 Barium Sulfate (Varibar Thin Liquid powder) 148 gm NOW PRN MC RAD 07/03/19 13:45 07/05/19 13:30 Ceftriaxone Sodium 1 gm/ Dextrose 55 ml @ 110 mls/hr Q24H IVPB 07/03/19 19:30 07/10/19 19:29 07/04/19 20:20 Dextrose (Dextrose 50%) 25 ml Q30M PRN IV Hypoglycemia 07/02/19 19:45 09/17/19 14:33 Dextrose (Dextrose 50%) 50 ml Q30M PRN IV Hypoglycemia 07/02/19 19:45 09/17/19 09:44 Insulin Aspart (NovoLOG) BEFORE MEALS AND HS SUBQ 07/02/19 21:00 09/17/19 11:29 07/05/19 06:16 Lactulose (Cephulac) 20 gm THREE TIMES A DAY NG 07/03/19 09:00 07/26/19 08:59 07/05/19 10:13 Midodrine (Pro-Amatine) 5 mg TID ORAL 07/05/19 13:00 10/03/19 12:59 Midodrine (Pro-Amatine) 10 mg THREE TIMES A DAY NG 07/03/19 09:00 09/30/19 12:59 07/05/19 10:13 Naloxone HCl (Narcan) 0.2 mg Q2M PRN IVP respiratory depression 07/02/19 19:17 09/18/19 11:59 Octreotide Acetate 500 mcg/ Sodium Chloride 500 ml @ 50 mls/hr Q10H IV 07/05/19 11:00 08/04/19 10:59 07/05/19 11:13 Olanzapine (ZyPREXA) 5 mg BID PRN ORAL agitation 07/03/19 23:45 08/17/19 23:44 Ondansetron HCl (Zofran) 4 mg Q6H PRN IVP Nausea & Vomiting 07/02/19 22:00 08/01/19 09:59 Pantoprazole (Protonix) 40 mg Q12HR IVP 07/02/19 21:00 07/23/19 08:59 07/05/19 10:13 Last 24 Hour Vital Signs Date Time Temp Pulse Resp B/P (MAP) Pulse Ox O2 Delivery O2 Flow Rate FiO2 07/05/19 08:00 108 07/05/19 08:00 97.4 110 28 127/97 (107) 100 07/05/19 04:00 97.4 110 18 111/58 (75) 97 07/05/19 04:00 108 07/05/19 00:00 115 07/05/19 00:00 98.3 116 18 107/57 (74) 99 07/04/19 21:00 Nasal Cannula 2.0 07/04/19 20:00 96.6 123 20 108/64 (79) 98 07/04/19 20:00 118 07/04/19 16:00 132 07/04/19 16:00 97.9 125 24 111/61 (78) 96 07/04/19 12:00 97.7 119 24 116/64 (81) 100 07/04/19 12:00 122 07/04/19 08:00 108 07/04/19 08:00 97.7 111 22 104/49 (67) 100 07/04/19 04:00 98.3 119 20 116/61 (79) 97 07/04/19 04:00 131 07/04/19 00:00 98.6 82 20 105/60 (75) 95 07/04/19 00:00 110 07/03/19 20:04 97 Nasal Cannula 2.0 28 07/03/19 20:00 111 07/03/19 20:00 97.7 72 22 97/56 (70) 07/03/19 16:00 100 07/03/19 16:00 97.1 112 20 106/57 (73) 07/03/19 16:00 Nasal Cannula 2.0 Intake and Output 07/04/19 07/05/19 19:00 07:00 Intake Total 1230 ml 1030 ml Output Total 7240 ml 120 ml Balance -6010 ml 910 ml Free Water 120 ml 60 ml IV Total 950 ml 720 ml Tube Feeding 100 ml 250 ml Other 60 ml Output Urine Total 200 ml 120 ml Emesis 40 ml Estimated Blood Loss 0 ml Other 7000 ml # Voids 1 # Bowel Movements 1 1 Labs Test 07/03/19 05:34 07/05/19 05:35 White Blood Count 25.2 K/UL (4.8-10.8) 30.4 K/UL (4.8-10.8) Red Blood Count 2.61 M/UL (4.20-5.40) 2.72 M/UL (4.20-5.40) Hemoglobin 8.7 G/DL (12.0-16.0) 8.6 G/DL (12.0-16.0) Hematocrit 26.3 % (37.0-47.0) 27.7 % (37.0-47.0) Mean Corpuscular Volume 101 FL (80-99) 102 FL (80-99) Mean Corpuscular Hemoglobin 33.3 PG (27.0-31.0) 31.7 PG (27.0-31.0) Mean Corpuscular Hemoglobin Concent 33.0 G/DL (32.0-36.0) 31.1 G/DL (32.0-36.0) Red Cell Distribution Width 18.2 % (11.6-14.8) 18.8 % (11.6-14.8) Platelet Count 53 K/UL (150-450) 64 K/UL (150-450) Mean Platelet Volume 8.5 FL (6.5-10.1) 8.2 FL (6.5-10.1) Neutrophils (%) (Auto) % (45.0-75.0) % (45.0-75.0) Lymphocytes (%) (Auto) % (20.0-45.0) % (20.0-45.0) Monocytes (%) (Auto) % (1.0-10.0) % (1.0-10.0) Eosinophils (%) (Auto) % (0.0-3.0) % (0.0-3.0) Basophils (%) (Auto) % (0.0-2.0) % (0.0-2.0) Differential Total Cells Counted 100 100 Neutrophils % (Manual) 90 % (45-75) 89 % (45-75) Lymphocytes % (Manual) 5 % (20-45) 5 % (20-45) Monocytes % (Manual) 5 % (1-10) 4 % (1-10) Eosinophils % (Manual) 0 % (0-3) 1 % (0-3) Basophils % (Manual) 0 % (0-2) 0 % (0-2) Band Neutrophils 0 % (0-8) 1 % (0-8) Platelet Estimate Decreased Decreased Platelet Morphology Normal Normal Hypochromasia 2+ 1+ Macrocytosis 1+ 1+ Spherocytes 1+ Sodium Level 138 MMOL/L (136-145) 132 MMOL/L (136-145) Potassium Level 5.1 MMOL/L (3.5-5.1) 6.2 MMOL/L (3.5-5.1) Chloride Level 107 MMOL/L (98-107) 102 MMOL/L (98-107) Carbon Dioxide Level 16 MMOL/L (21-32) 10 MMOL/L (21-32) Anion Gap 15 mmol/L (5-15) 21 mmol/L (5-15) Blood Urea Nitrogen 83 mg/dL (7-18) 107 mg/dL (7-18) Creatinine 2.1 MG/DL (0.55-1.30) 3.9 MG/DL (0.55-1.30) Estimat Glomerular Filtration Rate 23.5 mL/min (>60) 11.5 mL/min (>60) Glucose Level 269 MG/DL (74-106) 353 MG/DL (74-106) Uric Acid 11.4 MG/DL (2.6-7.2) 11.8 MG/DL (2.6-7.2) Calcium Level 7.7 MG/DL (8.5-10.1) 7.5 MG/DL (8.5-10.1) Phosphorus Level 3.2 MG/DL (2.5-4.9) 7.0 MG/DL (2.5-4.9) Magnesium Level 3.2 MG/DL (1.8-2.4) 3.4 MG/DL (1.8-2.4) Total Bilirubin 2.1 MG/DL (0.2-1.0) 2.3 MG/DL (0.2-1.0) Direct Bilirubin 1.2 MG/DL (0.0-0.3) 1.4 MG/DL (0.0-0.3) Aspartate Amino Transf (AST/SGOT) 139 U/L (15-37) 70 U/L (15-37) Alanine Aminotransferase (ALT/SGPT) 28 U/L (12-78) 36 U/L (12-78) Alkaline Phosphatase 183 U/L (46-116) 205 U/L (46-116) C-Reactive Protein, Quantitative 8.0 mg/dL (0.00-0.90) Pro-B-Type Natriuretic Peptide 802 pg/mL (0-125) Total Protein 5.8 G/DL (6.4-8.2) 6.0 G/DL (6.4-8.2) Albumin 2.5 G/DL (3.4-5.0) 2.1 G/DL (3.4-5.0) Globulin 3.3 g/dL 3.9 g/dL Albumin/Globulin Ratio 0.8 (1.0-2.7) 0.5 (1.0-2.7) Nucleated Red Blood Cells 2 /100 WBC Anisocytosis 2+ Height (Feet): 5 Height (Inches): 3.00 Weight (Pounds): 135 Objective Physical Exam: Vitals: reviewed General: NAD HEENT: nc, at, NG+ Neck: supple Chest: clear breath sounds bilaterally, nc+ Cardiovascular: RRR, no s3, s4 Abdomen: soft, nontender, nd Extremities: no cce, normal range of motion Neuro: alert and oriented : alberto+ Cristobal Staples MD Jul 05, 2019 12:47
--- NOTE | 2019-07-05 12:51 | Psych Consult Progress Note ---
Psychiatry Progress Note Psychiatry Progress Note Subjective the pt is weak waxing and waning of consciousness. no psych meds were given she is terminal awaiting hospice eval. Medications Current Medications Medications (Trade) Dose Ordered Sig/Idalia Route PRN Reason Start Time Stop Time Status Last Admin Dose Admin Acetaminophen (Tylenol) 500 mg Q6H PRN ORAL MILD/TEMP 07/02/19 19:30 07/18/19 19:29 Allopurinol (allopurinoL) 300 mg DAILY NG 07/03/19 09:00 07/31/19 14:29 07/05/19 10:13 Barium Sulfate (Varibar Thin Liquid powder) 148 gm NOW PRN MC RAD 07/03/19 13:45 07/05/19 13:30 Ceftriaxone Sodium 1 gm/ Dextrose 55 ml @ 110 mls/hr Q24H IVPB 07/03/19 19:30 07/10/19 19:29 07/04/19 20:20 Dextrose (Dextrose 50%) 25 ml Q30M PRN IV Hypoglycemia 07/02/19 19:45 09/17/19 14:33 Dextrose (Dextrose 50%) 50 ml Q30M PRN IV Hypoglycemia 07/02/19 19:45 09/17/19 09:44 Insulin Aspart (NovoLOG) BEFORE MEALS AND HS SUBQ 07/02/19 21:00 09/17/19 11:29 07/05/19 06:16 Lactulose (Cephulac) 20 gm THREE TIMES A DAY NG 07/03/19 09:00 07/26/19 08:59 07/05/19 10:13 Midodrine (Pro-Amatine) 5 mg TID ORAL 07/05/19 13:00 10/03/19 12:59 Midodrine (Pro-Amatine) 10 mg THREE TIMES A DAY NG 07/03/19 09:00 09/30/19 12:59 07/05/19 10:13 Naloxone HCl (Narcan) 0.2 mg Q2M PRN IVP respiratory depression 07/02/19 19:17 09/18/19 11:59 Octreotide Acetate 500 mcg/ Sodium Chloride 500 ml @ 50 mls/hr Q10H IV 07/05/19 11:00 08/04/19 10:59 07/05/19 11:13 Olanzapine (ZyPREXA) 5 mg BID PRN ORAL agitation 07/03/19 23:45 08/17/19 23:44 Ondansetron HCl (Zofran) 4 mg Q6H PRN IVP Nausea & Vomiting 07/02/19 22:00 08/01/19 09:59 Pantoprazole (Protonix) 40 mg Q12HR IVP 07/02/19 21:00 07/23/19 08:59 07/05/19 10:13 Allergies: Coded Allergies: PENICILLINS (Verified Allergy, Unknown, 06/18/19) Objective Data Height (Feet): 5 Height (Inches): 3.00 Weight (Pounds): 135 General Appearance: no apparent distress Behavior Mannerisms: poor eye contact Mental Status Exam - Affect: constricted Additional Comments: there was a paucity of thought content. memory is impaired. Assessment/Plan Mcdonald I: Acute encephalopathy Assessment/Plan: PLAN: 1. restarted zyprexa prn 2. dw nurse. Per Holden MD Jul 05, 2019 12:51
--- NOTE | 2019-07-05 12:54 | NUR ---
NURSE NOTES: PT BP 42/21, HR 38, PT LETHARGIC, NON RESPONSIVE, MESSAGE LEFT WITH DR DAVIS.
--- NOTE | 2019-07-05 12:55 | Surgery Progress Note ---
Surgery Progress Note Subjective Symptoms: worse Additional Comments ill appearing worsening distended labs worse Objective Last 24 Hour Vital Signs Date Time Temp Pulse Resp B/P (MAP) Pulse Ox O2 Delivery O2 Flow Rate FiO2 07/05/19 08:00 108 07/05/19 08:00 97.4 110 28 127/97 (107) 100 07/05/19 04:00 97.4 110 18 111/58 (75) 97 07/05/19 04:00 108 07/05/19 00:00 115 07/05/19 00:00 98.3 116 18 107/57 (74) 99 07/04/19 21:00 Nasal Cannula 2.0 07/04/19 20:00 96.6 123 20 108/64 (79) 98 07/04/19 20:00 118 07/04/19 16:00 132 07/04/19 16:00 97.9 125 24 111/61 (78) 96 I&O Intake and Output 07/04/19 07/05/19 19:00 07:00 Intake Total 1230 ml 1030 ml Output Total 7240 ml 120 ml Balance -6010 ml 910 ml Free Water 120 ml 60 ml IV Total 950 ml 720 ml Tube Feeding 100 ml 250 ml Other 60 ml Output Urine Total 200 ml 120 ml Emesis 40 ml Estimated Blood Loss 0 ml Other 7000 ml # Voids 1 # Bowel Movements 1 1 Cardiovascular: RSR Respiratory: decreased breath sounds Abdomen: soft, distended, tenderness, decreased bowel sounds Extremities: no tenderness, no cyanosis Laboratory Tests Test 07/05/19 05:35 White Blood Count 30.4 K/UL (4.8-10.8) *H Red Blood Count 2.72 M/UL (4.20-5.40) L Hemoglobin 8.6 G/DL (12.0-16.0) L Hematocrit 27.7 % (37.0-47.0) L Mean Corpuscular Volume 102 FL (80-99) H Mean Corpuscular Hemoglobin 31.7 PG (27.0-31.0) H Mean Corpuscular Hemoglobin Concent 31.1 G/DL (32.0-36.0) L Red Cell Distribution Width 18.8 % (11.6-14.8) H Platelet Count 64 K/UL (150-450) L Mean Platelet Volume 8.2 FL (6.5-10.1) Neutrophils (%) (Auto) % (45.0-75.0) Lymphocytes (%) (Auto) % (20.0-45.0) Monocytes (%) (Auto) % (1.0-10.0) Eosinophils (%) (Auto) % (0.0-3.0) Basophils (%) (Auto) % (0.0-2.0) Differential Total Cells Counted 100 Neutrophils % (Manual) 89 % (45-75) H Lymphocytes % (Manual) 5 % (20-45) L Monocytes % (Manual) 4 % (1-10) Eosinophils % (Manual) 1 % (0-3) Basophils % (Manual) 0 % (0-2) Band Neutrophils 1 % (0-8) Nucleated Red Blood Cells 2 /100 WBC Platelet Estimate Decreased L Platelet Morphology Normal Hypochromasia 1+ Anisocytosis 2+ Macrocytosis 1+ Sodium Level 132 MMOL/L (136-145) L Potassium Level 6.2 MMOL/L (3.5-5.1) *H Chloride Level 102 MMOL/L (98-107) Carbon Dioxide Level 10 MMOL/L (21-32) L Anion Gap 21 mmol/L (5-15) H Blood Urea Nitrogen 107 mg/dL (7-18) H Creatinine 3.9 MG/DL (0.55-1.30) H Estimat Glomerular Filtration Rate 11.5 mL/min (>60) Glucose Level 353 MG/DL (74-106) H Uric Acid 11.8 MG/DL (2.6-7.2) H Calcium Level 7.5 MG/DL (8.5-10.1) L Phosphorus Level 7.0 MG/DL (2.5-4.9) H Magnesium Level 3.4 MG/DL (1.8-2.4) H Total Bilirubin 2.3 MG/DL (0.2-1.0) H Direct Bilirubin 1.4 MG/DL (0.0-0.3) H Aspartate Amino Transf (AST/SGOT) 70 U/L (15-37) H Alanine Aminotransferase (ALT/SGPT) 36 U/L (12-78) Alkaline Phosphatase 205 U/L (46-116) H Total Protein 6.0 G/DL (6.4-8.2) L Albumin 2.1 G/DL (3.4-5.0) L Globulin 3.9 g/dL Albumin/Globulin Ratio 0.5 (1.0-2.7) L Plan Problems: (1) Abdominal pain Assessment & Plan: [age]-year-old female multiple medical comorbidities presented with abdominal discomfort noted to have abnormal LFTs leukocytosis. CT reviewed liver cirrhotic and there is a mass. Possibly carcinoma likely. HCC. Abdominal exam without peritonitis no acute surgical intervention indicated recommended at this time supportive treatment. Will follow with recommendations thank you tumor markers show afp 155, cea 26, ca19.9 1660 Consider comfort care/hospice can consider biopsy for diagnosis but unfortunately will unlikely help as advanced disease and given differential likely terminal Will follow with recommendations Covid results negative Lower thorax: Unremarkable lung bases. Intraperitoneal space: No free air. Gastrointestinal tract: Unremarkable. No dilation. Bones/joints: Degenerative spine findings and osteopenia. Tubes, lines and devices: Enteric tube with tip and proximal sideport below the gastroesophageal junction. IMPRESSION: 1. Enteric tube with tip and proximal sideport below the gastroesophageal junction. 2. Unremarkable lung bases. 3. No acute abnormality definitively seen. GI placed feeding tube cont feeds as tolerated severe anemia - gi blood loss? transfuse as per heme trend s/p para will monitor exam Thank you Pt presented on admission with multiple skin breakdown. Non-blanching erythema without induration.(L)7cm x (W)9cm . L heel is boggy with non-blanchable erythema(L)5.5cm x (W)4.5cm. R heel is boggy with non-blanchable erythema(L)6cm x (W)5.3cm. Pt did not exhibit any distress to indicate pain when each heel individually palpated. Tx.Plan: Apply Moisture Barrier Paste to Sacrum. Cover with Optifoam drsg. Change every 3 days and prn. Apply Cavilon Skin Barrier to both Heels. Cover each Heel with Optifoam drsg. change every 7 days and prn. Reposition at least every 2hours or as tolerated. Off-load heels with pillow. The liver is cirrhotic. There is evidence of portal hypertension including splenomegaly and gastric varices. There is a mass in the left lobe, primarily in the lateral segments, but also extending medially. This measures 7.7 x 5 x 4.8 cm in greatest transverse, anteroposterior, and craniocaudal dimensions respectively. This is hypodense/hypoenhancing compared to relatively normal adjacent parenchyma in the portal venous phase. This could reflect early washout of a hepatocellular carcinoma, particularly given cirrhosis. A large metastasis is also possible. Cholelithiasis. 2.2 cm densely calcified stone in the dependent gallbladder. No biliary ductal dilation. Both kidneys demonstrate multiple hypodense lesions, which are too small to characterize. No hydronephrosis. There is no bowel obstruction or perforation. The appendix is not well seen. Leftward pelvic calcification may reflect a subserosal uterine fibroid. No abdominal aortic aneurysm. No acute fracture. IMPRESSION: 7.7 cm left lobe hepatic mass is concerning for hepatocellular carcinoma, particularly given cirrhosis. A large metastasis is also possible. Consider multiphase hepatic protocol MRI. Right renal hypodensities that are too small to characterize. Cholelithiasis. code status changed hospice please para for comfort today she is very very distended and firm from fluid Technique: Ultrasound used to localize optimal puncture site. Sterile prepping and draping right lower quadrant. Local anesthesia with 1% lidocaine. Under real- time ultrasound guidance, puncture peritoneal space using paracentesis needle. Stylet removed. Catheter placed to vacuum bottle suction. Total 7 liters of bloody fluid aspirated. Patient tolerated procedure well, without immediate complication. Findings: Followup sonography demonstrates complete resolution of peritoneal fluid. Impression: Successful ultrasound-guided paracentesis, yielding 7 liters of fluid repeat para for comfort prn hospice family decision pending [place] Jul 05, 2019 12:55
--- NOTE | 2019-07-05 13:07 | NUR ---
PRONOUNCEMENT: No Code. Called to pronounce patient. Absence of spontaneous respirations, no cardiac or breath sounds on auscultation. Pupils fixed and dilated. No carotid pulse or chest movement. Patient at 1307. DR Acuña notified per Ermelinda KENDRICK. Family informed by Ermelinda KENDRICK.
--- NOTE | 2019-07-05 13:10 | NUR ---
NURSE NOTES: Received phone call from Dr. Acuña, per MD call Dr. Aguilar regarding decreased in BP. Primary RN made aware.
--- NOTE | 2019-07-05 13:17 | Nephrology Progress Note ---
Assessment/Plan Problem List: (1) LEANDRO (acute kidney injury) Assessment: Serum creatinine was up to 1.9 now back to 1.2 (2) Hyperkalemia (3) Liver cirrhosis (4) Liver mass (5) Anemia Assessment - LEANDRO , serum creatinine chapincito to 1.6, likely multifactorial, due to underlying liver disease, antibiotics, low blood pressure. - Hyperkalemia - Hypoalbuminemia - Cirrhosis, ? etiology - Large liver mass, suspect CA - poor Px - lung nodules - abd distention, likely ascites - r/o COVID -FTT -Anemia -UTI -DM -gallstones Plan Patient is doing poorly, hypotensive, poorly responsive, Kayexalate via NG tube for high potassium renal parameters somewhat worsened, serum creatinine is over 3 now Patient is doing poorly and is DNR with underlying neoplastic process Not much I can do from renal standpoint to view I favor comfort care Previously,: Start allopurinol NG tube feeding IV Protonix Antibiotics per ID Monitor renal parameters Midodrine for low blood pressure patient transfused June 25 Hydration as needed Neal catheter Avoid nephrotoxics Follow-up with renal parameters Urine studies Per orders Poor prognosis-now is DNR Subjective ROS Limited/Unobtainable: Yes Objective Objective Last 24 Hour Vital Signs Date Time Temp Pulse Resp B/P (MAP) Pulse Ox O2 Delivery O2 Flow Rate FiO2 07/05/19 08:00 108 07/05/19 08:00 97.4 110 28 127/97 (107) 100 07/05/19 04:00 97.4 110 18 111/58 (75) 97 07/05/19 04:00 108 07/05/19 00:00 115 07/05/19 00:00 98.3 116 18 107/57 (74) 99 07/04/19 21:00 Nasal Cannula 2.0 07/04/19 20:00 96.6 123 20 108/64 (79) 98 07/04/19 20:00 118 07/04/19 16:00 132 07/04/19 16:00 97.9 125 24 111/61 (78) 96 Intake and Output 07/04/19 07/05/19 19:00 07:00 Intake Total 1230 ml 1030 ml Output Total 7240 ml 120 ml Balance -6010 ml 910 ml Free Water 120 ml 60 ml IV Total 950 ml 720 ml Tube Feeding 100 ml 250 ml Other 60 ml Output Urine Total 200 ml 120 ml Emesis 40 ml Estimated Blood Loss 0 ml Other 7000 ml # Voids 1 # Bowel Movements 1 1 Current Medications Medications (Trade) Dose Ordered Sig/Idalia Route PRN Reason Start Time Stop Time Status Last Admin Dose Admin Acetaminophen (Tylenol) 500 mg Q6H PRN ORAL MILD/TEMP 07/02/19 19:30 07/18/19 19:29 Allopurinol (allopurinoL) 300 mg DAILY NG 07/03/19 09:00 07/31/19 14:29 07/05/19 10:13 Barium Sulfate (Varibar Thin Liquid powder) 148 gm NOW PRN MC RAD 07/03/19 13:45 07/05/19 13:30 Ceftriaxone Sodium 1 gm/ Dextrose 55 ml @ 110 mls/hr Q24H IVPB 07/03/19 19:30 07/10/19 19:29 07/04/19 20:20 Dextrose (Dextrose 50%) 25 ml Q30M PRN IV Hypoglycemia 07/02/19 19:45 09/17/19 14:33 Dextrose (Dextrose 50%) 50 ml Q30M PRN IV Hypoglycemia 07/02/19 19:45 09/17/19 09:44 Insulin Aspart (NovoLOG) BEFORE MEALS AND HS SUBQ 07/02/19 21:00 09/17/19 11:29 07/05/19 06:16 Lactulose (Cephulac) 20 gm THREE TIMES A DAY NG 07/03/19 09:00 07/26/19 08:59 07/05/19 10:13 Midodrine (Pro-Amatine) 5 mg TID ORAL 07/05/19 13:00 10/03/19 12:59 Midodrine (Pro-Amatine) 10 mg THREE TIMES A DAY NG 07/03/19 09:00 09/30/19 12:59 07/05/19 10:13 Naloxone HCl (Narcan) 0.2 mg Q2M PRN IVP respiratory depression 07/02/19 19:17 09/18/19 11:59 Octreotide Acetate 500 mcg/ Sodium Chloride 500 ml @ 50 mls/hr Q10H IV 07/05/19 11:00 08/04/19 10:59 07/05/19 11:13 Olanzapine (ZyPREXA) 5 mg BID PRN ORAL agitation 07/03/19 23:45 08/17/19 23:44 Ondansetron HCl (Zofran) 4 mg Q6H PRN IVP Nausea & Vomiting 07/02/19 22:00 08/01/19 09:59 Pantoprazole (Protonix) 40 mg Q12HR IVP 07/02/19 21:00 07/23/19 08:59 07/05/19 10:13 Laboratory Tests 07/05/19 05:35: White Blood Count 30.4*H, Red Blood Count 2.72L, Hemoglobin 8.6L, Hematocrit 27.7L, Mean Corpuscular Volume 102H, Mean Corpuscular Hemoglobin 31.7H, Mean Corpuscular Hemoglobin Concent 31.1L, Red Cell Distribution Width 18.8H, Platelet Count 64L, Mean Platelet Volume 8.2, Neutrophils (%) (Auto) , Lymphocytes (%) (Auto) , Monocytes (%) (Auto) , Eosinophils (%) (Auto) , Basophils (%) (Auto) , Differential Total Cells Counted 100, Neutrophils % ( Manual) 89H, Lymphocytes % (Manual) 5L, Monocytes % (Manual) 4, Eosinophils % ( Manual) 1, Basophils % (Manual) 0, Band Neutrophils 1, Nucleated Red Blood Cells 2, Platelet Estimate DecreasedL, Platelet Morphology Normal, Hypochromasia 1+, Anisocytosis 2+, Macrocytosis 1+, Sodium Level 132L, Potassium Level 6.2*H, Chloride Level 102, Carbon Dioxide Level 10L, Anion Gap 21H, Blood Urea Nitrogen 107H, Creatinine 3.9H, Estimat Glomerular Filtration Rate 11.5, Glucose Level 353H, Uric Acid 11.8H, Calcium Level 7.5L, Phosphorus Level 7.0H, Magnesium Level 3.4H, Total Bilirubin 2.3H, Direct Bilirubin 1.4H, Aspartate Amino Transf (AST/SGOT) 70H, Alanine Aminotransferase (ALT/SGPT) 36, Alkaline Phosphatase 205H, Total Protein 6.0L, Albumin 2.1L, Globulin 3.9, Albumin/Globulin Ratio 0.5L Height (Feet): 5 Height (Inches): 3.00 Weight (Pounds): 135 General Appearance: no apparent distress, lethargic Cardiovascular: tachycardia Respiratory/Chest: decreased breath sounds Abdomen: distended Objective no change Alex Aguilar MD Jul 05, 2019 13:17
--- NOTE | 2019-07-05 14:00 | NUR ---
NURSE NOTES: Dr Acuña called and according to him he tried calling pt son, just voicemail and could not leave a message.
--- NOTE | 2019-07-05 14:05 | NUR ---
D/C PATIENT FROM [facility] SHE PER RN
[2019-07-05] MEDS: cefTRIAXone 1 GM in D5W 55 ML IVPB SCH (16:36)
--- NOTE | 2019-07-05 17:01 | NUR ---
NURSE NOTES: 1255 notified doctor pt blood pressure is 42/37. 1307 pt no B/P and no heart rate noted. Notified doctor Arianne. Doctor Acuña stated that he has been trying to get intouch with pt family members but no answer. 1345 notified [facility] that pt . Case # [id number] nurse notified family members/ son Anmol that pt had . He will machine operator picker pt belongings today or tomorrow. Family wont be coming back to the hospital since they just left. [facility] Claude Moonierrez. [id number] Notified mortuary they will machine operator picker body in 2 hrs. 1656 mortuary p/U body. body was cleaned, name tag on left toe and body bag. Both IV's were DC from pt. ekg monitor taken off from pt. Neal taken off. Addendum: 07/05/19 at 1706 by Ermelinda Kat RN 1255 notified doctor pt blood pressure is 42/37. 1307 pt no B/P and no heart rate noted. Notified doctor Arianne. Doctor Acuña stated that he has been trying to get intouch with pt family members but no answer. 1345 notified [facility] that pt . Case # [id number] nurse notified family members/ son Anmol that pt had . He will machine operator picker pt belongings today or tomorrow. Family wont be coming back to the hospital since they just left. [facility] Claude Moonierrez. 1510 Notified mortuary they will machine operator picker body in 2 hrs. 1657 mortuary p/U body. body was cleaned, name tag on left toe and body bag. Both IV's were DC from pt. ekg monitor taken off from pt. Neal taken off. NGT was also DC.
--- NOTE | 2019-07-06 11:53 | NUR ---
*-* INSURANCE *-* NO DISCHARGE SUMMARY I THE SYSTEM UNABLE TO SEND
--- NOTE | 2019-07-06 12:38 | Discharge Summary ---
Discharge Summary Discharge Summary _ SUMMARY DATE OF ADMISSION: 06/18/2019 DATE OF EXPIRATION: 07/05/2019 REASON FOR ADMISSION: 69-year-old female with past medical history of hypertension, diabetes mellitus , major depressive disorder, schizophrenia, resident of group home facility , presented with hypoxia, dry cough and abdominal pain for few days. Patient reported crampy abdominal pain. No diarrhea. No fever or chills. Upon evaluation patient was tachycardic. No fevers. Pulse oximetry was stable on room air. Laboratory work-up revealed mild leukocytosis with WBC 11, hemoglobin 9.9, hematocrit 29.2, platelet count 134. INR 1.1. Urinalysis revealed +1 protein, borderline pyuria and few bacteria. Lactic acid 1.9. Stable electrolytes. BUN 41, creatinine 0.9. Glucose 125. AST 47, ALT 18. Troponin 0.011. Pro BNP 106. Albumin 2.7. Lipase 168. EKG revealed sinus tachycardia , no acute ischemic changes. Chest x-ray demonstrated questionable opacity in the left lung base. CT scan of the abdomen and pelvis revealed cirrhotic liver with evidence of portal hypertension, including splenomegaly and gastric varices. 7.7 cm left lobe hepatic mass concerning for hepatocellular carcinoma particularly given cirrhosis. Also noted multiply pulmonary nodules , largest in the right upper lobe , measuring 1.4 cm. Metastatic disease was a possibility. Cardiophrenic lymphadenopathy. Cholelithiasis. 2.2 cm densely calcified stone in the dependent gallbladder. No biliary ductal dilation. Patient received 1 L of fluid in the emergency department . Patient pancultured and started on broad spectrum antibiotics. Tachycardia resolved with fluid resuscitation. Hypoxia resolved without any acute intervention. Patient was also tested for COVID-19 . Patient admitted for new onset of hepatocellular carcinoma and dehydration . CONSULTANTS: neurologist Dr. Smtih pulmonary Dr. Martines ID specialist Dr. Manuel Kemp GI specialist Dr. Langford title lawyer Dr. Aguilar carroter/oncologist Dr. Staples surgery Dr. Kearns psychiatrist [facility] COURSE: Patient admitted to telemetry floor for further management. Patient undergone ultrasound-guided paracentesis , which yielded 7.5 L of ascitic fluid. Pathology of ascitic fluid revealed scattered atypical cells with degenerative changes. Cancer tumor markers revealed: alpha-fetoprotein -155, CA-19-9 -1665, CEA- 26.4. GI specialist closely followed. Considering tumor markers , probably cholangio-cancer with liver metastasis. Patient undergone EGD with NG tube placement, due to cirrhosis and dysphagia , which revealed large gastric varices, status post successful Dobbhoff tube placement. Patient started on propranolol. Overall prognosis was very poor. Tube feeding started via NG tube. Patient undergone another paracentesis on 06/30, which yielded 7 L of ascitic fluid. Oncologist followed. Given elevated tumor markers and poor prognosis , oncologist did not recommend to proceed with biopsy. Hospice was recommended and discussed with the family, who were in agreement. Venous duplex bilateral lower extremity revealed no evidence of acute DVT. Supplemental oxygen and pulmonary toilet provided. Patient was followed-up with chest x-ray. Hemoglobin and hematocrit were closely monitored with goal to keep hemoglobin above 7. Platelet count was closely monitored. Hepatitis panel HIV tests negative. Abdominal ultrasound confirmed splenomegaly and cirrhosis. Patient required transfusion of 2 units of packed red blood cells. Pancytopenia was likely related to cirrhosis. Renal parameters and electrolytes were closely monitored, electrolytes corrected as needed. Creatinine chapincito up . Acute kidney injury was likely multifactorial due to underlying liver disease, antibiotic and hypotension. Midodrine started for hypotension. GI prophylaxis provided. Hydration provided. Empiric antibiotics provided as per ID specialist recommendation. Blood cultures were negative. COVID 19 on 06/17 was not done due to insufficient quantity of specimen. Repeated COVID-19 by PCR was not detected. Pain management was addressed as per pain specialist. Wound care for multiply skin breakdown provided as per surgeon recommendation. Central line was placed on 06/29 due to persistent hypotension and need for pressors. Right internal jugular line was placed under ultrasound guidance. Follow-up chest x-ray confirmed proper placement of central line without complication. Patient started on Levophed. Hemodynamic status was closely monitored with goal to keep mean arterial blood pressure above 65. Patient was able to be weaned from Levophed. Neurology seen and evaluated patient and recommended comfort care . Per neurologist patient had multifocal metabolic encephalopathy. Psychiatric medication regimen provided as per psychiatrist. Medication readjusted as needed. CODE STATUS was changed to DNR/DNI , given multiorgan failure and poor prognosis om Patient condition was rapidly deteriorating. Patient was pronounced at 13: 07 07/05/19. Cause of : cardiopulmonary arrest secondary to metastatic hepatocellular carcinoma. FINAL DIAGNOSES: Cirrhosis Large liver mass , likely hepatocellular carcinoma with metastasis Possible cholangio cancer with liver mets Probably metastatic pulmonary disease Acute kidney injury, likely multifactorial Acute multifocal metabolic encephalopathy Pancytopenia Coagulopathy Dysphagia Status post paracentesis x2 Status post EGD with successful Dubhoff tube placement Large gastric varices Hyperkalemia Portal hypertension Hypotension , shock /requiring pressors Cholelithiasis Suspected COVID-19 infection , was ruled out Diabetes mellitus Intractable pain Dehydration Multiply skin breakdown , present on admission Schizophrenia I have been assigned to dictate discharge summary for this account. I was not involved in the patient's management. Cherry Zelaya NP Jul 06, 2019 12:38
--- NOTE | 2019-07-07 11:35 | NUR ---
INSURANCE DISCHARGE SUMMARY HAS BEEN FAXED TO: [facility] #[phone] FAX#[phone] REVIEWS/CLINICALS
== END 2019-07-05 17:03 | disposition expired | DRG 281 ==
LOC: EDBD 15:21 → EDBEDREQ 15:29 → EMR 15:45 → EDBEDREQ 17:41 → 2W 18:22 → OBSVTOIN 18:22 → EDBEDREQ 18:36 → 2E 06-25 14:09 → 4E 06-30 12:26 → ICU 06-30 20:27 → 2E 07-02 19:18
PROC: 0DJ08ZZ Inspection of Upper Intestinal Tract, Via Natural or Artificial Opening Endoscopic (ICD-10-PCS; 2019-06-25)
PROC: 0W9G3ZZ Drainage of Peritoneal Cavity, Percutaneous Approach (ICD-10-PCS; principal; 2019-06-28)
PROC: B543ZZA Ultrasonography of Right Jugular Veins, Guidance (ICD-10-PCS; 2019-06-30)
PROC: 05HM33Z Insertion of Infusion Device into Right Internal Jugular Vein, Percutaneous Approach (ICD-10-PCS; 2019-06-30)
PROC: 0W9G3ZZ Drainage of Peritoneal Cavity, Percutaneous Approach (ICD-10-PCS; 2019-07-01)
DX: C22.0 Liver cell carcinoma (principal); C78.00 Secondary malignant neoplasm of unspecified lung; K74.60 Unspecified cirrhosis of liver; C24.9 Malignant neoplasm of biliary tract, unspecified; N17.9 Acute kidney failure, unspecified; G93.41 Metabolic encephalopathy; E86.0 Dehydration; I10 Essential (primary) hypertension; E11.9 Type 2 diabetes mellitus without complications; R09.02 Hypoxemia; F20.9 Schizophrenia, unspecified; D61.818 Other pancytopenia; D68.9 Coagulation defect, unspecified; R13.10 Dysphagia, unspecified; I86.4 Gastric varices; E87.5 Hyperkalemia; K76.6 Portal hypertension; R57.9 Shock, unspecified; K80.20 Calculus of gallbladder without cholecystitis without obstruction; R18.8 Other ascites; Z66 Do not resuscitate; R62.7 Adult failure to thrive; Z68.24 Body mass index [BMI] 24.0-24.9, adult; D64.9 Anemia, unspecified; F03.90 Unspecified dementia, unspecified severity, without behavioral disturbance, psychotic disturbance, mood disturbance, and anxiety; F32.9 Major depressive disorder, single episode, unspecified
CPT/HCPCS: 36415; 36600; 71045; 71260; 74018; 74177; 76700; 76942; 80048; 80053; 81003; 82105; 82140; 82150; 82248; 82270; 82378; 82607; 82728; 82746; 82803; 82962; 82977; 83036; 83540; 83550; 83605; 83615; 83690; 83735; 83880; 84100; 84300; 84484; 84550; 85007; 85025; 85379; 85610; 85651; 85730; 86039; 86140; 86235; 86703; 86706; 86803; 86850; 86900; 86901; 86920; 87040; 87081; 87635; 88104; 89050; 89051; 92610; 93005; 93970; 94003; 94150; 96361; 96374; 96375; 99291; J1815; J2405; J3430; J7030